=== PATIENT | female | born 1945 | race Caucasian/White ===

== ENCOUNTER → 2018-03-11 11:00 | Outpatient (CLI) | payer MEDICARE, BC, SELFPAY ==
[2018-02-04 15:24] VITALS: BMI 30.5
--- NOTE | 2018-03-11 11:04 | RAD_ITS ---
STUDY: X-RAY - LUMBAR SPINE REASON FOR EXAM: Female, 72 years old. Low back pain TECHNIQUE: 5 view(s) of the lumbar spine were obtained. COMPARISON: None FINDINGS: Normal lumbar lordosis. There is no substantial scoliosis. There is a normal alignment of the vertebrae. There is multilevel endplate spondylosis of the lumbar vertebrae. There is multi-level degenerative disc disease with multi-level disc space narrowing. There is no demonstrated fracture. The soft tissue structures are unremarkable. RAD/L/S Spine Min 4 Views IMPRESSION: Degenerative changes of the spine, as detailed above. Electronically Signed: Osmany Vuong DO at 11:29 EST Tel , Service support ,
--- OUTSIDE RECORDS SUMMARY | 2018-06-12 15:10 | XMS RPT_ITS ---
:1945 Author Organization OHIP Care Team Providers Name Role Phone Jailene Aguilar DO Attending Unavailable Jailene Aguilar DO Consulting Unavailable Jeff DOJailene Referring Unavailable Jeff, Jailene Attending Unavailable Jeff Jailene Referring Unavailable Jeff, Jailene Primary Care Unavailable Amena Sweeney Attending Unavailable Bryant Lino Attending Unavailable ANUPAM LI Referring Unavailable JeffJailene Attending Unavailable Jeff Jailene Referring Unavailable Jeff, Jailene Primary Care Unavailable PROBLEMS PROBLEMS DATE TYPE CONDITION / CODE ATTENDING STATUS SOURCE 03/11/2018 Unknown M54.5 - Low back JeffJailene greene pain / Community M54.5(ICD-10) Hospital Repository PROCEDURES PROCEDURES No Procedure Records FoundRESULTS RESULTS RE-EVALUATION - PT (1) Observed: 03/31/2018 Status: F Source: KATLIN 1:54 PM [facility] REPOSITORY [facility] [address] [place] [address] / REEVALUATION / MEDICARE RECERTIFICATION PHYSICAL THERAPY MR#: [id number] Acct: [id number] Name: TIFFANY MONTEZ Rep #: [id number] : 1945 73 From: Jani Malik DPT Referring Dr.: Jailene Aguilar DO Status: REG RCR Insurance: MEDICARE PART A B ANTHEM Jailene Aguilar, DO, It has been my pleasure to treat TIFFANY MONTEZ over the last 10 visits for R biceps pain, Lumbar radiculopathy. Please see the progress note below for an update on the physical therapy plan of care! Subjective: Pt. reports I was doing better, but over the last few days she has had increased RLE pain and hip pain as well as R shoulder pain. Pt. reports that she just has increased pain over the past few days. A few weeks ago, she fell after getting knocked over by her dog. She has had increased soreness since. Objective/Function: Pt. has increased soreness with ER this date. Pt. has increased difficulty with raising her upper arm. MMT- RUE- wrist- 5/5 throghout; elbow- flexion 4+/5, ext 4+/5; shoulder- flexion 4+/5, abd 4/5 increase NW, ext 5/5, IR 5/5, ER 4-/5 increase. ROM: AROM- full, but has increased pain especially and in painful arc positonings. LUMBAR SPINE: flexion nil loss NE, ext min loss NE, SB min loss NE, rotation min loss bilat NE. BLE MMT- 5/5 throughout, except 4/5 hip flexion and abduction. Core strenth- poor+. GAIT: Pt. has improved gait pattern, but contiunes to have slight lateral hip swy, no trandenburg posture noted. STAIRS: Pt. is able to negotiate steps with reciprocal pattern with 1 HR without LOB, no pain with ascending or decsending. Plan Plan: Pt. is to follow up with physician later this date. I am concerned that she may have developed partial RTC tear with her fall. She reports that her symptoms have been improving, but she continues to have difficulty with lifting her arm and her ER weakness. I wanted her to reutrn to her physician prior to resuming PT in order to determine if alternate course of action is required. Goals Goal 1:: Pt. to be I with HEP. Goal Time Frame: 4-6 Weeks Goal Progress: Goal Met Goal 2:: Pt. to have full R shoulder ROM without increase in symptoms. Goal Time Frame: 4-6 Weeks Goal Progress: Progressing Goal 3:: Pt. to have increased R shoulder strength by 1/2 grade of all effected musculature. Goal Time Frame: 4-6 Weeks Goal Progress: Progressing Goal 4:: Pt. to ambulate unlimited distances withotu increase in symptoms. Goal Time Frame: 4-6 Weeks Goal Progress: Progressing Goal 5:: Pt. to have increased core strength by 1/2 grade. Goal Time Frame: 4-6 Weeks Goal Progress: Goal Met Goal 6:: Pt. to compelte all ADls without limitations. Goal Time Frame: 4-6 Weeks Goal Progress: Progressing Anticipated Interventions Patient/Client Instruction: Educate patient on: Condition, Plan of Care, Risk Factors, Benefits of Fitness Program For the Purpose of:: To improve decision making, To facilitate caregiver knowledge, To improve self management, To prevent re-injury, To improve ability to perform tasks related to life management, To improve tolerance to ADL's Therapeutic Exercise to Include: Strength training, Power training, Endurance training, Postural training, Flexibilty training, Passive ROM, Active ROM, Raquel Exercises, Scapular Strength/Stabilization For the Purpose of:: To decrease pain, To decrease swelling/inflammation, To increase ROM, To improve nutrient delivery to tissue, To improve muscle performance and motor function, To improve ability to perform ADL's, To improve performance and independence with ADL's, To improve gait and locomotor functions, To improve health of tissue, To decrease soft tissue restriction, To increase flexibility/ROM Manual Therapy Techniques to Include: Mobilization, Passive ROM, Functional dry needling, Soft tissue mobilization For the Purpose of:: To decrease pain, To decrease swelling/inflammation, To increase ROM, To improve nutrient delivery to tissue, To increase oxygenation perfusion, To improve muscle performance and motor function, To improve health of tissue, To decrease soft tissue restriction, To increase flexibility/ROM Cryotherapy (ice pack, ice massage): Yes Thermo therapy (hot pack): Yes For the Purpose of:: To decrease pain, To decrease swelling/inflammation, To increase ROM, To improve nutrient delivery to tissue, To increase oxygenation perfusion Please do not hesitate to contact me at [phone] by phone or if you have questions or concerns regarding this new plan of care! Sincerely, Jani Malik, DPT <Electronically signed by Jani Malik DPT> 03/31/18 1354 CC: Jailene Aguilar DO CLS Signed For Medicare only, by signing this I certify the plan of care. Physicians Signature Date L/S SPINE MIN 4 Observed: 03/11/2018 Status: F Source: OZAN VIEWS 11:04 AM [facility] REPOSITORY [facility] Imaging Services [address] [place] [address] L/S Spine Min 4 Views MR#: [id number] Acct: [id number] Name: TIFFANY MONTEZ Rep #: [id number] : 1945 F 72 From: Osmany Vuong DO PCP: Jailene Aguilar DO Status: REG CLI Study: L/S Spine Min 4 Views Date of Exam: 03/11/18 Exam# [id number] Ordering Dr: Jailene Aguilar DO STUDY: X-RAY - LUMBAR SPINE REASON FOR EXAM: Female, 72 years old. Low back pain TECHNIQUE: 5 view(s) of the lumbar spine were obtained. COMPARISON: None FINDINGS: Normal lumbar lordosis. There is no substantial scoliosis. There is a normal alignment of the vertebrae. There is multilevel endplate spondylosis of the lumbar vertebrae. There is multi-level degenerative disc disease with multi-level disc space narrowing. There is no demonstrated fracture. The soft tissue structures are unremarkable. RAD/L/S Spine Min 4 Views IMPRESSION: Degenerative changes of the spine, as detailed above. Electronically Signed: Osmany Vuong DO at 11:29 EST Tel , Service support , CC: Jailene Aguilar DO Pet Care Attendant: Signed URGENT CARE VISIT Observed: 03/04/2018 Status: F Source: OZAN REPORT 6:52 AM [facility] REPOSITORY [facility] [address] [place] [address] OFFICE VISIT Date of Service: 02/04/18 MR#: [id number] Acct: [id number] Name: TIFFANY MONTEZ Rep #: [id number] : 1945 Provider: Bryant COKER Age/Sex: 72/F Location: [facility] Status: Signed with Addenda ADDENDUM by Bryant COKER on 03/04/18 at 0652 Addendum entered and electronically signed by SHEELA Rendon 03/04/18 06:52: Dx: Cervical strain/ radiculopathy, Lumbar strain/ radiculopathy HPI Details: TIFFANY MONTEZ, is a 72 F who presents to the office today for Assessment AND Plan Plan - SHEELA Rendon Prednisone as prescribed today; patient aware she may take acetaminophen but hold all NSAIDs while on prednisone. Patient refusing cyclobenzaprine upon offering. Rest, ice applications, home range of motion exercises as instructed today. Keep follow-up appointment with primary care physician for February 23 as previously arranged, or follow-up with PCP sooner should symptoms worsen or any other concerns develop. Patient states acknowledging understanding all the above. This note was generated with [employer] software. It may contain incorrect words, spelling, and punctuation that were not noted in checking the note before signing. Medications New: prednisone 3 tablets daily for 3 days, then 2 tablets daily20 mg PO DAILY 18 tabs 0RF for 3 days, then 1 tablet daily for 3 days. 03/04/18 0652 <Electronically signed by Bryant COKER> Date Bryant Lino cc: * Signed Intake Vital Signs02/04/18 Height 5 ft 2 in Intake Visit Reasons: SCIATICA/ AND RIGHT BICEP PAIN Chief Complaint: Neck and back pain Allergies Penicillins Allergy (Verified 02/04/18 15:25) Unknown Medications antiarthritic combination no.2 900 mg tablet mg PO tab 02/04/18 [History Confirmed 02/04/18] bupropion HCl 75 mg tablet 75 mg PO BID 02/04/18 [History Confirmed 02/04/18] calcium carbonate 500 mg calcium (1,250 mg) tablet 500 mg PO BID tab 02/04/18 [History Confirmed 02/04/18] cholecalciferol (vitamin D3) 1,000 unit capsule 1,000 unit PO DAILY 02/04/18 [History Confirmed 02/04/18] nuoectu-hficmhkia-gxxryp-MNX-rlcet-ppys-150hb 250 mg-250 mg- 120 mg tab tab PO tab 02/04/18 [History Confirmed 02/04/18] dexlansoprazole 30 mg capsule,biphase delayed release 30 mg PO DAILY 02/04/18 [History Confirmed 02/04/18] losartan 100 mg tablet 100 mg PO DAILY 02/04/18 [History Confirmed 02/04/18] prednisone 20 mg tablet 20 mg PO DAILY #18 tab 02/04/18 [Rx Confirmed 02/04/18] verapamil 40 mg tablet 40 mg PO TID 02/04/18 [History Confirmed 02/04/18] PFSH Medical History Back pain (Acute) Limb weakness (Acute) HTN (hypertension) (Chronic) Surgical History History of cataract surgery (Acute) History of tubal ligation (Acute) Social History Smoking Status: Never smoker alcohol intake: current alcohol intake frequency: 3 or more drinks per day Alcohol type: wine HPI HPI Chief Complaint: Neck and back pain Details: TFIFANY MONTEZ, is a 72 F who presents to the office today for initial evaluation approximately 2-month history of progressively worsening right- sided neck pain right-sided low back pain with paresthesias to right lateral posterior thigh and right upper biceps region paresthesias. Patient notes she recently moved to the [facility] from the [facility], and has been carrying a lot of boxes in the process of the move over the last 2 months. She has been taking ivcw-nhg-cpxbwzt Advil which initially helped but is no longer giving her any relief. She notes no changes in bowel or bladder function; no caudal complaints upon questioning. She notes no prior history of injuries or surgeries to her neck or back. She notes no other associated symptoms and no other alleviating or aggravating factors. ROS Const Constitutional: No other (ROS negative x10 other than as noted above) Exam Const General: cooperative, healthy appearing, no acute distress, uncomfortable Nutritional Appearance: average body habitus Orientation: alert, awake, oriented x3 HENMT Head: normal to inspection Ears: hearing grossly normal bilaterally, external ears normal Nose: external nose normal Eyes General: appearance normal, both eyes and all related structures Neck Neck: normal visual inspection, full ROM, no lymphadenopathy, no meningeal signs, supple Neck mass: No Thyroid: thyroid normal Lymphatic: no lymphadenopathy noted Chest Chest palpation AND inspection: normal inspection of the chest Resp Effort AND Inspection: normal respiratory effort, able to speak in complete sentences, symmetric chest movement Auscultation: Bilateral: Clear to Auscultation Cardio Palpation: normal PMI Rate: regular rate Rhythm: regular rhythm Heart Sounds: S1 normal, S2 normal, no gallops, no murmurs, no rubs Pulses: radial pulses present GI Inspection: normal to inspection Palpation: soft Musc Cervical Spine: normal cervical lordosis, cervical ROM normal, pain with cervical ROM and cervical muscular tenderness (R>L, to palpation exacerbates R biceps paresthesias); no cervical spinal tenderness or step off deformity Thoracic/Lumbar Spine: thoracic and lumbar spine normal to inspection, No surgical scar(s) present, straight leg raise negative bilaterally, no lumbar spinal tenderness, no thoracic spinal tenderness, thoraco-lumbar spasm, paraspinal tenderness (to palpation exacerbates R lateral-posterior thigh paresthesias) on the right greater than left Skin General: no rashes or lesions noted Neuro General: alert, awake, oriented x3, gait normal Cognition: normal cognition Speech: speech normal Gait: normal gait Motor: muscle tone normal throughout Sensory Exam: no sensory deficits noted Extrem General: normal to inspection Psych Appearance: grossly normal Mental Status: mental status grossly normal Mood: congruent mood Affect: normal affect Speech and Movement: speech and movement normal Attitude: cooperative Thought Process: normal Thought Content: normal Judgment: judgment good Assessment AND Plan Plan Prednisone as prescribed today; patient aware she may take acetaminophen but hold all NSAIDs while on prednisone. Patient refusing cyclobenzaprine upon offering. Rest, ice applications, home range of motion exercises as instructed today. Keep follow-up appointment with primary care physician for February 23 as previously arranged, or follow-up with PCP sooner should symptoms worsen or any other concerns develop. Patient states acknowledging understanding all the above. This note was generated with [employer] dictation software. It may contain incorrect words, spelling, and punctuation that were not noted in checking the note before signing. Medications New: prednisone 3 tablets daily for 3 days, then 2 tablets daily20 mg PO DAILY 18 tabs 0RF for 3 days, then 1 tablet daily for 3 days. Coding Level of Care Code Off vis,new,level 3 02/04/18 0868 <Electronically signed by Bryant COKER> Date Bryant COKER Cosigner Signature: Date (if applicable) CC: INITAL EVALUATION (1) Observed: 03/03/2018 Status: F Source: KATLIN - PT 12:36 PM [facility] REPOSITORY [facility] [address] [place] [address]. [address] [place] [address] Fax REHABILITATION SERVICES INITIAL EVALUATION MR#: [id number] Acct: [id number] Name: TIFFANY MONTEZ Rep #: [id number] : 1945 72 From: Jani Malik DPT Referring DrSydni: Jailene Aguilar DO Status: REG RCR Insurance: MEDICARE PART A B ANTHEM Patient's Visit Information TIFFANY MONTEZ is a 72 year old F referred to Physical Therapy by Jailene Aguilar with a diagnosis of R biceps pain, Lumbar radiculopathy. Date of Evaluation: 02/26/18 Physical Therapist: Jani Malik - Visit Plan Frequency: 2x /Week Duration: 4-6 Weeks Plan: Start with neutral spine core stability, R shoulder strengthening stability exercises. May use US for lumbar spine and/or bicep at insertion as needed. Inferior glides with abd/flexion or shoulder as tolerated. - Subjective Findings: Pt. is here today for her initial evaluation with biceps pain and lumbar radiculopathy. Pt. reports having pain for 2 months after moving boxes as she moved back to [place] from [place]. Pt. reports having pain that extends into bilateral hips and occassionally into anterior hip on R side. Pt. reports her back pain has been presents for a while, but has become worse since the move. Pt. denies N/T in either LE or UE. Pt. reports pain with walking, sleeping, standing. She has R arm pain with lifting, raising her arm and with ADLs. Pt. has not trialed any exercises and has not had any imaging at this point in time. Pt. is not taking any medications as well. Pt. would like to reduce symptoms in order to get back to all recreational and ADls without increase in symptoms. - Pain R arm pain Pain Intensity (Out of 10): 2 Pain Intensity Range: 0, 5 Lumbar spine Pain Intensity (Out of 10): 3 Pain Intensity Range: 1, 6 - Objective POSTURE: PT. has slight L lateral lean in stance. Pt. has slight flexed posture with rounded shoulders. Pt. had slight increase in R iliac crest height. PALPATION: Pt. has tenderness along biceps tendon, pain at lumbar paraspinals and gluteal region. Pt. has no lateral leg pain with palpation. Pt. has sligh anterior subacromial space symptoms as well. NEURO: all intact without issues. ROM: L shoulder full motion without increase in symptoms. R shoulder- flexion full increased pain at end range of flexion, abd- painful arc, but full motion. Functional ER C4 mild increase NW, functioanl IR L3 mild increase NW anterior shoulder. LUMBAR SPINE: flexion- min loss NE, ext mod loss increase NW, SB mod loss bilat increase NW, rotation min loss bilat increase NW. No radicular symptoms with testing. MMT: LUE- 5/5 throughout. RUE- 5/5 throughotu, except- shoulder ER 4/5 mild incraese NWE, ext 5-/5 increase NW, flexion 4/5 increase NW. COre strength- poor- difficulty maintaining post pelvic tilt. GAIT: Pt. has slight R lateral lean with gait, normal step length, increased lateral hip sway with gait. Pt. has slight trandelenburg with B hips. STAIRS: Functional weakness noted with descending. - Special Tests L/S Slump test left side: Negative L/S Slump test right side: Negative L/S Left Straight Leg Raise: Negative L/S Right Straight Leg Raise: Negative Lumbar Standing: Flexion - Mechanical Response: No effect Lumbar Standing: Flexion - Symptoms During Testing: Decreases Lumbar Standing: Flexion - Symptoms After Testing: No better Lumbar Standing: Extension - Mechanical Response: No effect Lumbar Standing: Extension - Symptoms During Testing: Increases Lumbar Standing: Extension - Symptoms After Testing: Worse Lumbar Standing: Right Side Glides - Mechanical Response: No effect Lumbar Standing: Right Side Phelps - Symptoms During Testing: Increases Lumbar Standing: Right Side Phelps - Symptoms After Testing: No worse Lumbar Standing: Left Side Phelps - Mechanical Response: No effect Lumbar Standing: Left Side Phelps - Symptoms During Testing: Increases Lumbar Standing: Left Side Phelps - Symptoms After Testing: No worse R Shoulder Empty Can - SS: Negative R Shoulder Belly Press - SupScap: Negative R Shoulder Neer - Impingement: Positive R Shoulder Kendrick Octavio - Impingement: Negative R Shoulder Biceps Load Test - Labrum: Negative R Shoulder Yeargasons - SLAP: Negative R Shoulder Speeds Test - Labrum/Biceps: Negative - Goals Goal 1:: Pt. to be I with HEP. Goal Time Frame: 4-6 Weeks Goal 2:: Pt. to have full R shoulder ROM without increase in symptoms. Goal Time Frame: 4-6 Weeks Goal 3:: Pt. to have increased R shoulder strength by 1/2 grade of all effected musculature. Goal Time Frame: 4-6 Weeks Goal 4:: Pt. to ambulate unlimited distances withotu increase in symptoms. Goal Time Frame: 4-6 Weeks Goal 5:: Pt. to have increased core strength by 1/2 grade. Goal Time Frame: 4-6 Weeks Goal 6:: Pt. to compelte all ADls without limitations. Goal Time Frame: 4-6 Weeks - Rehabilitation Potential Physical Therapy Diagnosis: Pt. has signs and symptoms consistent with biceps tendonitis vrs impingment syndrome and lumbar radiculopathy. Pt. has difficulty with raising her R arm and with lifting. Pt. does not appear to have a directional preference with her lumbar spine, but would benefit from core stability exercises and modalities as needed to reduce symptoms. Rehabilitation Potential: Good - Anticipated Interventions Patient/Client Instruction: Educate patient on: Condition, Plan of Care, Risk Factors, Benefits of Fitness Program For the Purpose of:: To improve decision making, To facilitate caregiver knowledge, To improve self management, To prevent re-injury, To improve ability to perform tasks related to life management, To improve tolerance to ADL's Therapeutic Exercise to Include: Strength training, Power training, Endurance training, Postural training, Flexibilty training, Passive ROM, Active ROM, Raquel Exercises, Scapular Strength/Stabilization For the Purpose of:: To decrease pain, To decrease swelling/inflammation, To increase ROM, To improve nutrient delivery to tissue, To improve muscle performance and motor function, To improve ability to perform ADL's, To improve performance and independence with ADL's, To improve gait and locomotor functions, To improve health of tissue, To decrease soft tissue restriction, To increase flexibility/ROM Manual Therapy Techniques to Include: Mobilization, Passive ROM, Functional dry needling, Soft tissue mobilization For the Purpose of:: To decrease pain, To decrease swelling/inflammation, To increase ROM, To improve nutrient delivery to tissue, To increase oxygenation perfusion, To improve muscle performance and motor function, To improve health of tissue, To decrease soft tissue restriction, To increase flexibility/ROM Cryotherapy (ice pack, ice massage): Yes Thermo therapy (hot pack): Yes For the Purpose of:: To decrease pain, To decrease swelling/inflammation, To increase ROM, To improve nutrient delivery to tissue, To increase oxygenation perfusion Thank you for the opportunity to evaluate your patient. For Medicare and Medicare HMO plans, please review the plan of care and approve it. It will need to be FAXED BACK to us at [phone] for Medicare purposes. For Medicare only, by signing this I certify the plan of care. Please let me know if there are questions or concerns regarding this plan of care. Physician Signature: Date: <Electronically signed by Jani Malik DPT> 03/03/18 1236 CC: Jailene Aguilar DO CLS Signed ALLERGIES ALLERGIES DATE TYPE / CODE NAME / CODE REACTION SEVERITY SOURCE 02/04/2018 Drug Penicillins/ Unknown Unknown [facility] Allergy/4160 [id number]( Hospital 86803(SNOMED XNORM) Repository CT) ENCOUNTERS ENCOUNTERS ADMIT/DISCHARGE ACCOUNT ADMITTING ENCOUNTER LOCATION SOURCE NUMBER CLASS 04/17/2018 [id number] Ambulatory BMSBuilding:[facility] [place] [facility] Repository 04/06/2018 [id number] Ambulatory Building:[facility] [place] Practices Repository 03/31/2018 [id number] Ambulatory [place] [facility] [facility] ing:PT Repository 03/11/2018 [id number] Ambulatory [place] [facility] ing:MTRAD Repository 02/04/2018/ [id number] Ambulatory BMSBuilding:[facility] [place] [address] 6 [facility] Repository PAYERS PAYERS ENCOUNTER GUARANTOR PAYER SUBSCRIBER SOURCE 04/17/2018 TIFFANY B Primary TIFFANY B [place] [id number] Insurance:MEDICARE SWARTZDOB: [facility] PART A [facility] [id number] Number: Repository [address]Fft: [phone] [id number] [phone] () Date:2018-04-17 04/17/2018 Secondary TIFFANY B [place] Insurance:ANTHEMPolic SWARTZDOB: Community y Number: [id number] [id number] Repository Date:[id number] [place] [id number] [address]EH: 04/17/2018 Tertiary NOT GIVENUNK [place] Insurance:SELF PAY [facility] Number: Effective Repository Date:2018-04-17 04/06/2018 Tiffany B Primary Tiffany B OHIP Practices SwartzDOB: Insurance:MedicarePol SwartzDOB: Repository icy Number: [id number] CV0 [id number] [place] [id number] 0 [place], [place] Date:1571-75-11[place]daBur[place], [place] [address]Zwl: 515) Name:[facility] [address]Uwr: [id number], [place] [phone] (HP) (HP)Tel: [phone]: [phone] 04/06/2018 Secondary Tiffany B OHIP Practices Insurance:Lula SwartzDOB: Repository [facility]: [id number] 0 [place] Date:Plan Name:[place], [place] [address] [place] [address]Obf: [phone]: [phone] 03/31/2018 TIFFANY B Primary TIFFANY B [place] [id number] Insurance:MEDICARE SWARTZDOB: [facility] PART A [facility] [id number] Number: Repository [id number]: [phone] [id number] [phone] () Date:2011-02-21 03/31/2018 Secondary TIFFANY B [place] Insurance:ANTHEMPolic SWARTZDOB: Community y Number: [id number] [id number] Repository Date:[id number] [address]FJ: 03/31/2018 Tertiary NOT GIVENUNK [place] Insurance:SELF PAY [facility] Number: Effective Repository Date:2018-02-23 03/11/2018 TIFFANY B Primary TIFFANY B [place] [id number] Insurance:MEDICARE SW[facility]ZDOB: [facility] A [facility] [id number] Number: Repository [id number]: [phone] [id number] [phone] (HP) Date:2018-03-11 03/11/2018 Secondary TIFFANY B [place] Insurance:ANTHEMPolic SWARTZDOB: Community [facility] Number: [id number] [facility] [id number] Repository Date:0682-05-31[id number] [address]DH: 03/11/2018 Tertiary NOT GIVENUNK [place] Insurance:SELF PAY [facility] Number: Effective Repository Date:2018-03-11 02/04/2018 TIFFANY B Primary TIFFANY B Channing [id number] Insurance:MEDICARE SWARTZDOB: [facility] PART A [facility] [id number] Number: Repository [id number]: [phone] [id number] [phone] (HP) Date:2018-02-04 02/04/2018 Secondary TIFFANY B [place] Insurance:ANTHEMPolic SWARTZDOB: Community [facility] Number: [id number] [id number] Repository Date:[id number] [place] [address]EQ: 02/04/2018 Tertiary NOT GIVENUNK [place] Insurance:SELF PAY [facility] Number: Effective Repository Date:2018-02-04
--- OUTSIDE RECORDS SUMMARY | 2018-06-12 15:10 | XMS RPT_ITS | Continuity of Care Document ---
:1945 Author Organization [facility] Address [facility] [address] [place] [address] Phone Care Team Providers Name Role Phone Jailene Aguilar DO Unavailable Dr. Kang Quintana Unavailable LISA Marshall Unavailable Unavailable Unavailable Unavailable Problems Name Dates Details Hutton's esophagus (K22.70, 530.85) Status: Active BMI 30.0-30.9,adult (Z68.30, V85.30) Status: Active Low back pain (M54.5, 724.2) Comments: with radiculopathy Status: Active No Known / History 23-Feb-2018 Status: Active Non-smoker (Z78.9, V49.89) Status: Active Medications Name Dates Details Align 4 MG Oral Capsule Active 1 qd (4 MG) Aspirin 81 MG Oral Tablet Delayed Release Active 1 qd (81 MG) BuPROPion HCl ER (XL) 450 MG Oral Tablet Extended Release 24 Hour Active 1 qd (450 MG) Citracal Slow Release 600-40-500 MG-MG-UNIT Oral Tablet Extended Release 24 Hour Active 1 qd (600-40-500 MG-MG-UNIT) Dexilant 60 MG Oral Capsule Delayed Release Active 1 qd (60 MG) Focused Mind Oral Capsule Active 1 qd Glucosamine Chondr Complex 500-400 MG Oral Capsule Active 1 qd (500-400 MG) Hair Skin Nails Oral Capsule Active 1 qd Losartan Potassium 50 MG Oral Tablet Active 1 qd (50 MG) Meloxicam 15 MG Oral Tablet 1 (one) Tablet qd for 30 days Quantity: 30 {Tablet} Refills: 0 Ordered:23-Feb-2018 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 Father. Status: Active Diabetes Mellitus Type II Comments: Father. Status: Active Heart Disease Comments: Maternal Grandfather. Status: Active Hypertension Comments: Maternal Grandmother. Paternal Grandmother. Status: Active Lung Cancer Comments: Mother. Status: Active Multiple Sclerosis Comments: Sister. Status: Active Pancreatitis Comments: Father. Status: Active Throat cancer Comments: Paternal Grandfather. Status: Active Social History Name Dates Details Alcohol Use Status: Active Caffeine Use Comments: qd Status: Active Exercise History: Does not exercise. Status: Active Living Situation: Lives alone. Status: Active No Drug Use Status: Active Non Smoker/No Tobacco Use Status: Active Pets/Animals: Dog. Status: Active Vital Signs Date Test Result Details [id number] Pulse 80 /min Comments: Pattern: Regular Respiration Rate 18 /min Comments: Pattern: Unlabored O2 SAT 98 % Comments: Room air BP Systolic 152 mm[Hg] Comments: Patient Position: Sitting; Cuff Location: Left Arm; Cuff Size: Large BP Diastolic 90 mm[Hg] Comments: Patient Position: Sitting; Cuff Location: Left Arm; Cuff Size: Large Weight 171.375 lb Height 62.5 in Body Mass Index Calculated 30.85 kg/m2 Body Surface Area Calculated 1.8 m2 Results Date Description Value Details No Result Information Available Plan of Care Name Dates Details Instructions Hutton's esophagus : Continue Current Prescription(s) Indication: Hutton's esophagus Planned Encounters Medical; General Medical - On: 13-Mar-2018 10:30 [facility] Jailene Aguilar DO, DO, [facility]; [facility], annual exam - On: 02-Apr-2018 9:30 [facility] Jailene Aguilar DO, DO, Kathleen Planned Procedures PHYSICAL THERAPY ([id number])By: Jailene Aguilar DO, DO, On: 23-Feb-2018 Intent Jailene [facility] - Lumbar SpineBy: Jeff GORDONJailene DO, On: 23-Feb-2018 Intent Jailene Instructions Name Dates Details Non-smoker : How to access health information online Indication: Non-smoker Non-smoker : How to access health information online Indication: Non-smoker Non-smoker : How to access health information online - Detail Indication: Non-smoker Non-smoker : Patient Instructions Indication: Non-smoker Advance Directives Name Dates Details Immunization Registry [place] - Effective on 02/23/2018. Effective: 23-Feb-2018 Expiration date unspecified Encounters Office Visit On: 23-Feb-2018 14:08 Encounter Reason: Back Pain - This condition occurred following a specific injury. The injury involved the lower back. The patient describes the pain as aching. Onset was sudden 4 month(s) ago. The symptoms occur constan End: 23-Feb-2018 16:40 tly. The patient describes symptoms as moderate in severity and worsening., [ADDITIONAL REASON] Arm pain - The onset of the pain has been sudden and has been occurring in a pe rsistent pattern for months. The course has been constant. The pain is described as moderate. The pain is described as being located in the right humerus. The pain is aggravated by reaching and lifting. The pain is relieved by nothing. Encounter Diagnosis: BMI 30.0-30.9,adult, Non-smoker, Low back pain, Hutton's esophagus [facility] Payers MedicareAnthem MCKENNA/Tadeo Nuñez; a guarantor
== END ==
PROVIDERS: Family Provider Internal Medicine; PCP Internal Medicine; Referring Provider Internal Medicine; Visit Provider Internal Medicine
DX: M54.5 Low back pain (principal); M54.16 Radiculopathy, lumbar region; M79.621 Pain in right upper arm
CPT/HCPCS: 72110; 97035; 97110

== ENCOUNTER 2018-03-31 11:00 | Outpatient (RCR) | payer MEDICARE, BC, SELFPAY ==
[2018-02-04 15:24] VITALS: BMI 30.5
--- NOTE | 2018-03-03 12:36 | HP.PTEVAL_ITS ---
Patient's Visit Information JOSHUA MONTEZ is a 72 year old F referred to Physical Therapy by Jailene Aguilar with a diagnosis of R biceps pain, Lumbar radiculopathy. Date of Evaluation: 02/26/18 Physical Therapist: Jani Malik - Visit Plan Frequency: 2x /Week Duration: 4-6 Weeks Plan: Start with neutral spine core stability, R shoulder strengthening stability exercises. May use US for lumbar spine and/or bicep at insertion as needed. Inferior glides with abd/flexion or shoulder as tolerated. - Subjective Findings: Pt. is here today for her initial evaluation with biceps pain and lumbar radiculopathy. Pt. reports having pain for ~2 months after moving boxes as she moved back to [place] from [place]. Pt. reports having pain that extends into bilateral hips and occassionally into anterior hip on R side. Pt. reports her back pain has been presents for a while, but has become worse since the move. Pt. denies N/T in either LE or UE. Pt. reports pain with walking, sleeping, standing. She has R arm pain with lifting, raising her arm and with ADLs. Pt. has not trialed any exercises and has not had any imaging at this point in time. Pt. is not taking any medications as well. Pt. would like to reduce symptoms in order to get back to all recreational and ADls without increase in symptoms. - Pain R arm pain Pain Intensity (Out of 10): 2 Pain Intensity Range: 0, 5 Lumbar spine Pain Intensity (Out of 10): 3 Pain Intensity Range: 1, 6 - Objective POSTURE: PT. has slight L lateral lean in stance. Pt. has slight flexed posture with rounded shoulders. Pt. had slight increase in R iliac crest height. PALPATION: Pt. has tenderness along biceps tendon, pain at lumbar paraspinals and gluteal region. Pt. has no lateral leg pain with palpation. Pt. has sligh anterior subacromial space symptoms as well. NEURO: all intact without issues. ROM: L shoulder full motion without increase in symptoms. R shoulder- flexion full increased pain at end range of flexion, abd- painful arc, but full motion. Functional ER C4 mild increase NW, functioanl IR L3 mild increase NW anterior shoulder. LUMBAR SPINE: flexion- min loss NE, ext mod loss increase NW, SB mod loss bilat increase NW, rotation min loss bilat increase NW. No radicular symptoms with testing. MMT: LUE- 5/5 throughout. RUE- 5/5 throughotu, except- shoulder ER 4/5 mild incraese NWE, ext 5-/5 increase NW, flexion 4/5 increase NW. COre strength- poor- difficulty maintaining post pelvic tilt. GAIT: Pt. has slight R lateral lean with gait, normal step length, increased lateral hip sway with gait. Pt. has slight trandelenburg with B hips. STAIRS: Functional weakness noted with descending. - Special Tests L/S Slump test left side: Negative L/S Slump test right side: Negative L/S Left Straight Leg Raise: Negative L/S Right Straight Leg Raise: Negative Lumbar Standing: Flexion - Mechanical Response: No effect Lumbar Standing: Flexion - Symptoms During Testing: Decreases Lumbar Standing: Flexion - Symptoms After Testing: No better Lumbar Standing: Extension - Mechanical Response: No effect Lumbar Standing: Extension - Symptoms During Testing: Increases Lumbar Standing: Extension - Symptoms After Testing: Worse Lumbar Standing: Right Side Glides - Mechanical Response: No effect Lumbar Standing: Right Side [place] - Symptoms During Testing: Increases Lumbar Standing: Right Side [place] - Symptoms After Testing: No worse Lumbar Standing: Left Side [place] - Mechanical Response: No effect Lumbar Standing: Left Side [place] - Symptoms During Testing: Increases Lumbar Standing: Left Side [place] - Symptoms After Testing: No worse R Shoulder Empty Can - SS: Negative R Shoulder Belly Press - SupScap: Negative R Shoulder Neer - Impingement: Positive R Shoulder Kendrick Octavio - Impingement: Negative R Shoulder Biceps Load Test - Labrum: Negative R Shoulder [place] - SLAP: Negative R Shoulder Speeds Test - Labrum/Biceps: Negative - Goals Goal 1:: Pt. to be I with HEP. Goal Time Frame: 4-6 Weeks Goal 2:: Pt. to have full R shoulder ROM without increase in symptoms. Goal Time Frame: 4-6 Weeks Goal 3:: Pt. to have increased R shoulder strength by 1/2 grade of all effected musculature. Goal Time Frame: 4-6 Weeks Goal 4:: Pt. to ambulate unlimited distances withotu increase in symptoms. Goal Time Frame: 4-6 Weeks Goal 5:: Pt. to have increased core strength by 1/2 grade. Goal Time Frame: 4-6 Weeks Goal 6:: Pt. to compelte all ADls without limitations. Goal Time Frame: 4-6 Weeks - Rehabilitation Potential Physical Therapy Diagnosis: Pt. has signs and symptoms consistent with biceps tendonitis vrs impingment syndrome and lumbar radiculopathy. Pt. has difficulty with raising her R arm and with lifting. Pt. does not appear to have a d irectional preference with her lumbar spine, but would benefit from core stability exercises and modalities as needed to reduce symptoms. Rehabilitation Potential: Good - Anticipated Interventions Patient/Client Instruction: Educate patient on: Condition, Plan of Care, Risk Factors, Benefits of Fitness Program For the Purpose of:: To improve decision making, To facilitate caregiver knowledge, To improve self management, To prevent re-injury, To improve ability to perform tasks related to life management, To improve tolerance to ADL's Therapeutic Exercise to Include: Strength training, Power training, Endurance training, Postural training, Flexibilty training, Passive ROM, Active ROM, Raquel Exercises, Scapular Strength/Stabilization For the Purpose of:: To decrease pain, To decrease swelling/inflammation, To increase ROM, To improve nutrient delivery to tissue, To improve muscle performance and motor function, To improve ability to perform ADL's, To improve performance and independence with ADL's, To improve gait and locomotor functions, To improve health of tissue, To decrease soft tissue restriction, To increase flexibility/ROM Manual Therapy Techniques to Include: Mobilization, Passive ROM, Functional dry needling, Soft tissue mobilization For the Purpose of:: To decrease pain, To decrease swelling/inflammation, To increase ROM, To improve nutrient delivery to tissue, To increase oxygenation perfusion, To improve muscle performance and motor function, To improve health of tissue, To decrease soft tissue restriction, To increase flexibility/ROM Cryotherapy (ice pack, ice massage): Yes Thermo therapy (hot pack): Yes For the Purpose of:: To decrease pain, To decrease swelling/inflammation, To increase ROM, To improve nutrient delivery to tissue, To increase oxygenation perfusion Thank you for the opportunity to evaluate your patient. For Medicare and Medicare HMO plans, please review the plan of care and approve it. It will need to be FAXED BACK to us at [phone] for Medicare purposes. For Medicare only, by signing this I certify the plan of care. Please let me know if there are questions or concerns regarding this plan of care. Physician Signature: Date:
--- NOTE | 2018-03-31 13:54 | HP.PTREVAL ---
Jailene Aguilar, DO, It has been my pleasure to treat JOSHUA MONTEZ over the last 10 visits for R biceps pain, Lumbar radiculopathy. Please see the progress note below for an update on the physical therapy plan of care! Subjective: Pt. reports I was doing better, but over the last few days she has had increased RLE pain and hip pain as well as R shoulder pain. Pt. reports that she just has increased pain over the past few days. A few weeks ago, she fell after getting knocked over by her dog. She has had increased soreness since. Objective/Function: Pt. has increased soreness with ER this date. Pt. has increased difficulty with raising her upper arm. MMT- RUE- wrist- 5/5 throghout; elbow- flexion 4+/5, ext 4+/5; shoulder- flexion 4+/5, abd 4/5 increase NW, ext 5/5, IR 5/5, ER 4-/5 increase. ROM: AROM- full, but has increased pain especially and in painful arc positonings. LUMBAR SPINE: flexion nil loss NE, ext min loss NE, SB min loss NE, rotation min loss bilat NE. BLE MMT- 5/5 throughout, except 4/5 hip flexion and abduction. Core strenth- poor+. GAIT: Pt. has improved gait pattern, but contiunes to have slight lateral hip swy, no [place] posture noted. STAIRS: Pt. is able to negotiate steps with reciprocal pattern with 1 HR without LOB, no pain with ascending or decsending. Plan Plan: Pt. is to follow up with physician later this date. I am concerned that she may have developed partial RTC tear with her fall. She reports that her symptoms have been improving, but she continues to have difficulty with lifting her arm and her ER weakness. I wanted her to reutrn to her physician prior to resuming PT in order to determine if alternate course of action is required. Goals Goal 1:: Pt. to be I with HEP. Goal Time Frame: 4-6 Weeks Goal Progress: Goal Met Goal 2:: Pt. to have full R shoulder ROM without increase in symptoms. Goal Time Frame: 4-6 Weeks Goal Progress: Progressing Goal 3:: Pt. to have increased R shoulder strength by 1/2 grade of all effected musculature. Goal Time Frame: 4-6 Weeks Goal Progress: Progressing Goal 4:: Pt. to ambulate unlimited distances withotu increase in symptoms. Goal Time Frame: 4-6 Weeks Goal Progress: Progressing Goal 5:: Pt. to have increased core strength by 1/2 grade. Goal Time Frame: 4-6 Weeks Goal Progress: Goal Met Goal 6:: Pt. to compelte all ADls without limitations. Goal Time Frame: 4-6 Weeks Goal Progress: Progressing Anticipated Interventions Patient/Client Instruction: Educate patient on: Condition, Plan of Care, Risk Factors, Benefits of Fitness Program For the Purpose of:: To improve decision making, To facilitate caregiver knowledge, To improve self management, To prevent re-injury, To improve ability to perform tasks related to life management, To improve tolerance to ADL's Therapeutic Exercise to Include: Strength training, Power training, Endurance training, Postural training, Flexibilty training, Passive ROM, Active ROM, Raquel Exercises, Scapular Strength/Stabilization For the Purpose of:: To decrease pain, To decrease swelling/inflammation, To increase ROM, To improve nutrient delivery to tissue, To improve muscle performance and motor function, To improve ability to perform ADL's, To improve performance and independence with ADL's, To improve gait and locomotor functions, To improve health of tissue, To decrease soft tissue restriction, To increase flexibility/ROM Manual Therapy Techniques to Include: Mobilization, Passive ROM, Functional dry needling, Soft tissue mobilization For the Purpose of:: To decrease pain, To decrease swelling/inflammation, To increase ROM, To improve nutrient delivery to tissue, To increase oxygenation perfusion, To improve muscle performance and motor function, To improve health of tissue, To decrease soft tissue restriction, To increase flexibility/ROM Cryotherapy (ice pack, ice massage): Yes Thermo therapy (hot pack): Yes For the Purpose of:: To decrease pain, To decrease swelling/inflammation, To increase ROM, To improve nutrient delivery to tissue, To increase oxygenation perfusion Please do not hesitate to contact me at [phone] by phone or if you have questions or concerns regarding this new plan of care! Sincerely, Jani Malik DPT
--- NOTE | 2018-05-20 14:03 | HP.PTDCNRP_ITS ---
HP - Discharge Summary (1) - Patient Information JOSHUA MONTEZ was seen in my office for initial evaluation on 02/26/18. The following Plan of Care was established for this patient: Initial Frequency: 2x /Week Initial Duration: 4-6 Weeks - Anticipated Interventions Patient/Client Instruction: Educate patient on: Condition, Plan of Care, Risk Factors, Benefits of Fitness Program For the Purpose of:: To improve decision making, To facilitate caregiver knowledge, To improve self management, To prevent re-injury, To improve ability to perform tasks related to life management, To improve tolerance to ADL's Therapeutic Exercise to Include: Strength training, Power training, Endurance training, Postural training, Flexibilty training, Passive ROM, Active ROM, Raquel Exercises, Scapular Strength/Stabilization For the Purpose of:: To decrease pain, To decrease swelling/inflammation, To increase ROM, To improve nutrient delivery to tissue, To improve muscle perf ormance and motor function, To improve ability to perform ADL's, To improve performance and independence with ADL's, To improve gait and locomotor functions, To improve health of tissue, To decrease soft tissue restriction, To increase flexibility/ROM Manual Therapy Techniques to Include: Mobilization, Passive ROM, Functional dry needling, Soft tissue mobilization For the Purpose of:: To decrease pain, To decrease swelling/inflammation, To increase ROM, To improve nutrient delivery to tissue, To increase oxygenation perfusion, To improve muscle performance and motor function, To improve health of tissue, To decrease soft tissue restriction, To increase flexibility/ROM Cryotherapy (ice pack, ice massage): Yes Thermo therapy (hot pack): Yes For the Purpose of:: To decrease pain, To decrease swelling/inflammation, To increase ROM, To improve nutrient delivery to tissue, To increase oxygenation perfusion This patient was last seen in our office 03/31/18. Pertinent comments regarding their Physical therapy will appear below: Pt. was seen for her B shoulder and back pain. Pt. 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 Pt. has had worsening shoulder ROM. At our last visit I talked with patient about possibility fo RTC tear. Pt. was to follow up with physician for possible MRI. Pt. has not been seen in ~7 weeks and will be DC from PT at this point in time. At this point I will be discontinuing this patient from physical therapy. I would be happy to see this patient again in the future if found appropriate by the physician. Thank you! LYNNETTE ShawT
== END 2018-03-31 19:00 | disposition home or self-care (01) ==
LOC: PT 11:00
PROVIDERS: Family Provider Internal Medicine; PCP Internal Medicine; Referring Provider Internal Medicine; Visit Provider Internal Medicine
DX: M54.16 Radiculopathy, lumbar region (principal); M79.621 Pain in right upper arm
CPT/HCPCS: 97012; 97035; 97110; 97140; 97163

== ENCOUNTER → 2018-05-01 10:18 | Outpatient (CLI) | payer MEDICARE, BC, SELFPAY ==
[2018-04-17 11:49] VITALS: BMI 30.5
--- NOTE | 2018-05-01 10:22 | RAD_ITS ---
STUDY: X-RAY - RIGHT SHOULDER REASON FOR EXAM: Female, 73 years old. Pain TECHNIQUE: 4 view(s) of the shoulder. COMPARISON: None. FINDINGS: Normal glenohumeral articulation. Normal acromioclavicular joint. Normal acromion. Normal humeral head and visualized proximal humerus. The soft tissue structures are unremarkable. Normal visualized pulmonary apex. RAD/Shoulder min 2 Views IMPRESSION: Normal x-ray examination of the shoulder. Electronically Signed: Justin Bauer DO at 9:04 EST Tel [phone], Service support ,
== END ==
PROVIDERS: Family Provider Internal Medicine; PCP Internal Medicine; Visit Provider Internal Medicine
DX: M25.511 Pain in right shoulder (principal)
CPT/HCPCS: 73030

== ENCOUNTER → 2018-05-11 11:01 | Outpatient (CLI) | payer MEDICARE, BC, SELFPAY ==
[2018-04-17 11:49] VITALS: BMI 30.5
--- NOTE | 2018-05-11 11:05 | MRI_ITS ---
STUDY: MRI RIGHT SHOULDER REASON FOR EXAM: Right shoulder pain extending down arm for 7 months. TECHNIQUE: Standardized fat and water weighted pulse sequences were obtained in all 3 orthogonal planes. COMPARISON: Radiographs 05/01/2018. FINDINGS: There is a full-thickness tear of the supraspinatus and infraspinatus tendons retracted approximately 2.9 cm to the level of the acromioclavicular joint (T2 coronal images 9-16). There is mild subscapularis tendinosis (proton density axial images 10, 11) without discrete tendon tear. Normal teres minor tendon. There is mild atrophy with mild partial fat replacement of the supraspinatus and infraspinatus muscles (T2 sagittal image 22). Normal subscapularis muscle. Normal teres minor muscle. There is a small glenohumeral joint effusion. There is superior migration of the humeral head secondary to the retracted rotator cuff tear. There is a tear with nonvisualization of the intracapsular long biceps tendon. There is tear/degeneration of the posterior aspect of the superior labrum (coronal images 13, 14). Normal capsulo- ligamentous complex. There is mild acromioclavicular arthrosis without substantial undersurface osteophytes (proton-density coronal image 11). There is an os acromiale (proton-density sagittal image 13). There is a Type II morphology (curved), with a neutral orientation. There is a small volume of subacromial-subdeltoid bursal fluid. There is mild thickening of the coracoacromial ligament (T2 sagittal image 13). Normal deltoid muscle. Normal trapezius muscle. MRI/Upper Ext Joint Only(Routine) IMPRESSION: Full-thickness tear of the supraspinatus and infraspinatus tendons. Mild subscapularis tendinosis. Mild atrophy of the supraspinatus and infraspinatus muscles. Tear of the long biceps tendon. Tear/degeneration of the posterior aspect of the superior labrum. Mild acromioclavicular arthrosis. Os acromiale. Mild thickening of the coracoacromial ligament. Glenohumeral joint fluid communicating with the subacromial-subdeltoid bursa. Electronically Signed: Clement Roger MD at 9:06 EST Tel , Service support ,
== END ==
PROVIDERS: Family Provider Internal Medicine; PCP Internal Medicine; Referring Provider Internal Medicine; Visit Provider Internal Medicine
DX: M25.511 Pain in right shoulder (principal)
CPT/HCPCS: 73221

== ENCOUNTER → 2019-01-05 12:16 | Outpatient (CLI) | payer MEDICARE, BC, SELFPAY ==
[2018-02-04 15:24] VITALS: BMI 30.5
[2018-04-17 11:49] VITALS: BMI 30.5
--- NOTE | 2019-01-05 12:19 | BI_ITS ---
MAMMOGRAPHY - BILATERAL SCREENING REASON FOR EXAM: Female, 73 years old. Routine annual screening examination. PERTINENT HISTORY: Aunt with breast cancer. TECHNIQUE: Digital bilateral breast gerry (3D mammographic acquisition) in the CC and MLO projections. 2-D mediolateral oblique (MLO) and craniocaudad (CC) views of both breasts were obtained. CAD: Full Field Digital Mammography with Computer Added Detection was performed. COMPARISON: No comparison mammograms available at this time. If any prior films become available, an addendum to this report can be generated. FINDINGS: Breast Composition: There are scattered areas of fibroglandular density. There are no dominant masses or suspicious calcifications. No other significant abnormalities are identified. BI/SCREEN MAMM (CAD) W/GERRY BILAT IMPRESSION: Negative screening mammogram. Yearly followup mammogram recommended. (A) ASSESSMENT CATEGORY: BIRADS Category 1: Negative. A letter regarding these results will be sent to the patient by the facility within 30 days. Approximately 10% of breast cancers are not detected by mammography. A normal mammogram should not delay biopsy of a clinically suspicious abnormality. [id number] Electronically Signed: Ross Marie, at 8:04 EDT , Service support ,
--- NOTE | 2019-01-05 12:26 | BD_ITS ---
STUDY: DUAL ENERGY X-RAY ABSORPTIOMETRY / DXA REASON FOR EXAM: Female, 73 years old. The patient is postmenopausal. Loss of height. TECHNIQUE: Bone Mineral Density (BMD) measurements of lumbar spine and bilateral hips were obtained. COMPARISON: None. FINDINGS: Lumbar Spine (L1-L4): g/cm2 (1.077) / T-score (-0.7) / Z-score (1.0) Findings are suggestive of normal bone density with a low fracture risk. Left Femur Total: g/cm2 (0.945) / T-score (-0.5) / Z-score (1.1) Left Femoral Neck: g/cm2 (0.883) / T-score (-1.1) / Z-score (0.7) Right Femur Total: g/cm2 (0.932) / T-score (-0.6) / Z-score (1.0) Right Femoral Neck: g/cm2 (0.788) / T-score (-1.8) / Z-score (0.0) BD/Dexa Bone Density Study IMPRESSION: The patient is considered osteopenic as outlined below according to World Gil Organization (WHO) criteria with a moderate fracture risk. Reference Information: The T-score is the number of standard deviations above or below the standard which is normal for young adults at their peak bone mineral density. The World Health Organization (WHO) interprets the T-scores as follows: Above -1 Normal bone density Between -1 and -2.5 Osteopenia Equal to / or below -2.5 Osteoporosis As a practical clinical guideline, osteopenia may be graded as follows: Mild -1 through -1.5 Moderate -1.6 through -2.0 Severe -2.1 through -2.4 The Z-score is the number of standard deviations above or below age-matched controls. A Z-score of less than -1.5 would be considered abnormal. References: 1. NIH Osteoporosis and Related Bone Diseases http://www.osteo.org 2. International Society for Clinical Densitometry http://www.iscd.org 3. National Osteoporosis Foundation http://www.nof.org Electronically Signed: Ross Marie, at 9:42 EDT , Service support ,
== END ==
PROVIDERS: Family Provider Internal Medicine; PCP Internal Medicine; Referring Provider Internal Medicine; Visit Provider Internal Medicine
DX: Z12.31 Encounter for screening mammogram for malignant neoplasm of breast (principal); Z78.0 Asymptomatic menopausal state
CPT/HCPCS: 77063; 77067; 77080

== ENCOUNTER 2019-08-06 12:00 | Outpatient (RCR) | payer MEDICARE, BC, SELFPAY ==
[2018-04-17 11:49] VITALS: BMI 30.5
--- NOTE | 2019-06-09 13:23 | HP.PTEVAL_ITS ---
Patient's Visit Information JOSHUA MONTEZ is a 74 year old F referred to Physical Therapy by Jailene Aguilar DO with a diagnosis of LUMBAR BACK PAIN,DDD. Date of Evaluation: 06/09/19 Physical Therapist: Syed Alston, PT, Cert MDT, OCS - Visit Plan Frequency: 2x /Week Duration: 4 Weeks Plan: PT INTERVENTIONS DLS ABD/BACK,POSTURAL EX'S ,MODALTIES - Subjective Subjective: This 74 y/o female presents to physical therapy with lumbar back pain. Patient developed right low back pain several months. Seen Dr Aguilar recommended PT. Patient had PT in past with 2019. Aggraveting factors right walking and standing,bending,lifting . Allevaiting factors sitting ,resting . Denies parathesia/tingling. Bowel/bladder good. Pateint has dificulty sleeping. Patient did have x-rays - DDD. Coughing/sneezing-. Patient pain affects ho usework tasks, and ADLS' . Patient pain affects QOL. SOCAIL: . VOCATION: retired - Pain Right Back Pain Intensity (Out of 10): 9 Pain Intensity Range: 10 - Objective POSTURE: mild foward posture. GAIT: reciprocal pattern mild foward posture. PALPATION: tender L-S region. NEURO: denies parathesia/tingling ,reflexes L3-4,L4-5,L5-S1 1/3. SYMMTRIES: ALIGN. LUMBAR ROM: flexion mod loss pain,extension min loss,side glides min loss. MMT: quads/hams 4/5,hip flexion 4-/5,ankle 4/5. FLEXABLITY: hams WFL. - Special Tests L/S Slump test left side: Negative L/S Slump test right side: Negative L/S Left Straight Leg Raise: Negative L/S Right Straight Leg Raise: Negative Lumbar Standing: Flexion - Mechanical Response: No effect Lumbar Standing: Flexion - Symptoms During Testing: Increases Lumbar Standing: Flexion - Symptoms After Testing: Worse Lumbar Standing: Extension - Mechanical Response: No effect Lumbar Standing: Extension - Symptoms During Testing: Decreases Lumbar Standing: Extension - Symptoms After Testing: No better Lumbar Standing: Right Side Glides - Mechanical Response: No effect Lumbar Standing: Right Side Jackson - Symptoms During Testing: No effect Lumbar Standing: Right Side Jackson - Symptoms After Testing: No effect Lumbar Standing: Left Side Jackson - Mechanical Response: No effect Lumbar Standing: Left Side Jackson - Symptoms During Testing: No effect Lumbar Standing: Left Side Jackson - Symptoms After Testing: No effect - Goals Goal 1:: Independant with HEP Goal Time Frame: 4-6 Weeks Goal 2:: Improve posture for ADL'S Goal Time Frame: 4-6 Weeks Goal 3:: Patient to decrease back pain by 50% or > to improve function with ADL'S Goal Time Frame: 4-6 Weeks Goal 4:: Patient to improve lumbar ROM for function of recovery Goal Time Frame: 4-6 Weeks Goal 5:: Patient to increase back owestrey score by 5 points or > to improve QOL. Goal Time Frame: 4-6 Weeks - Rehabilitation Potential Physical Therapy Diagnosis: This patient has right lumbar pain with h/o DDD with pain with movement > with flexion ,walking/standing affects ADL's and housework tasks thus benifit from skilled PT Rehabilitation Potential: Good - Anticipated Interventions Patient/Client Instruction: Educate patient on: Condition, Plan of Care For the Purpose of:: To decrease pain, To increase ROM, To improve muscle performance and motor function, To improve ability to perform ADL's, To increase tolerance to activity/condition/position, To decrease level of supervision to perform tasks, To improve ability of physical actions for home/community/work/leisure, To improve health of tissue, To decrease soft tissue restriction, To improve ability to perform tasks related to life management Therapeutic Exercise to Include: Strength training, Postural training, Flexibilty training, Dynamic Lumbar Stabilization For the Purpose of:: To decrease pain, To increase ROM, To improve muscle performance and motor function, To improve ability to perform ADL's, To increase tolerance to activity/condition/position, To improve ability of physical actions for home/community/work/leisure, To improve health of tissue, To decrease soft tissue restriction, To increase flexibility/ROM, To improve ability to perform tasks related to life management TENS: Yes IF ES: Yes Cryotherapy (ice pack, ice massage): Yes Thermo therapy (hot pack): Yes Ultrasound (thermal/non thermal): Yes For the Purpose of:: To decrease pain, To increase ROM, To improve nutrient delivery to tissue, To increase oxygenation perfusion, To improve health of tissue, To decrease soft tissue restriction Thank you for the opportunity to evaluate your patient. For Medicare and Medicare HMO plans, please review the plan of care and approve it. It will need to be FAXED BACK to us at [phone] for Medicare purposes. For Medicare only, by signing this I certify the plan of care. Please let me know if there are questions or concerns regarding this plan of care. Physician Signature: Date:
--- NOTE | 2019-07-05 11:57 | HP.PTREVAL ---
Jailene Aguilar, DO, It has been my pleasure to treat JOSHUA MONTEZ over the last 10 visits for LUMBAR BACK PAIN,DDD. Please see the progress note below for an update on the physical therapy plan of care! Subjective: Doing better pain is still noticable when bending over Objective/Function: Godwin tx well with progression of goals: GAIT: reciprocal pattern. NEURO: intact. PALAPTION: tender LEFT L-S. LUMBAR ROM: flexion min loss ,ext min loss,side glides min loss pain R-L. MMT: quads/hams 4/5 ,hip flexion 4-/5,ankle 4/5 Plan Plan: CONT WITH POC 2XWEEK FOR 4 WEEKS PT INTERVENTIONS DLS ABD/BACK,POSTURAL EX'S ,MODALTIES Goals Goal 1:: Independant with HEP Goal Time Frame: 4-6 Weeks Goal Progress: Goal Met Goal 2:: Improve posture for ADL'S Goal Time Frame: 4-6 Weeks Goal Progress: Progressing Goal 3:: Patient to decrease back pain by 50% or > to improve function with ADL'S Goal Time Frame: 4-6 Weeks Goal Progress: Progressing Goal 4:: Patient to improve lumbar ROM for function of recovery Goal Time Frame: 4-6 Weeks Goal Progress: Progressing Goal 5:: Patient to increase back owestrey score by 5 points or > to improve QOL. Goal Time Frame: 4-6 Weeks Goal Progress: Progressing Anticipated Interventions Patient/Client Instruction: Educate patient on: Condition, Plan of Care For the Purpose of:: To decrease pain, To increase ROM, To improve muscle performance and motor function, To improve ability to perform ADL's, To increase tolerance to activity/condition/position, To decrease level of supervision to perform tasks, To improve ability of physical actions for home/community/work/leisure, To improve health of tissue, To decrease soft tissue restriction, To improve ability to perform tasks related to life management Therapeutic Exercise to Include: Strength training, Postural training, Flexibilty training, Dynamic Lumbar Stabilization For the Purpose of:: To decrease pain, To increase ROM, To improve muscle performance and motor function, To improve ability to perform ADL's, To increase tolerance to activity/condition/position, To improve ability of physical actions for home/community/work/leisure, To improve health of tissue, To decrease soft tissue restriction, To increase flexibility/ROM, To improve ability to perform tasks related to life management TENS: Yes IF ES: Yes Cryotherapy (ice pack, ice massage): Yes Thermo therapy (hot pack): Yes Ultrasound (thermal/non thermal): Yes For the Purpose of:: To decrease pain, To increase ROM, To improve nutrient delivery to tissue, To increase oxygenation perfusion, To improve health of tissue, To decrease soft tissue restriction Please do not hesitate to contact me at [phone] by phone or if you have questions or concerns regarding this new plan of care! Sincerely, Syed Alston, PT, Cert MDT, OCS
--- NOTE | 2019-08-06 12:47 | HP.PTDCSUM_ITS ---
It has been my pleasure to treat JOSHUA MONTEZ referred by Dr. Jailene Aguilar DO, with the diagnosis of LUMBAR BACK PAIN,DDD for a total of 19 visit(s). Discharge Date: Please see the following information for a summary of their discharge status. Subjective: Doing good ready to be d/c . Plan to do ex's on own at home. Walking/standing extended distances 1/2 hr. Strengthening ex's decreases pain. Right Back Pain Intensity (Out of 10): 2 % Improvement: 80 Objective/Function: POSTURE: mild foward posture. GAIT: reciprocal pattern slifgt lean to left. SYMMTRIES: left mild shift. LUMBAR ROM: flexion min loss,extension mild loss,side glides mild loss. MMT: quads/hams 4/5,hip 4- /5,ankle 4/5 Goal 1:: Independant with HEP Goal Progress: Goal Met Goal 2:: Improve posture for ADL'S Goal Progress: Goal Met Goal 3:: Patient to decrease back pain by 50% or > to improve function with ADL'S Goal Progress: Goal Met Goal 4:: Patient to improve lumbar ROM for function of recovery Goal Progress: Goal Met Goal 5:: Patient to increase back owestrey score by 5 points or > to improve QOL. Goal Progress: Goal Met Plan: D/C TO HEP If there are questions or concerns regarding this patient's physical therapy, please feel free to call me at [phone]. Thank you for the referral of this patient. Sincerely, Syed Alston, PT, Cert MDT, OCS
== END 2019-08-06 19:00 | disposition home or self-care (01) ==
LOC: PT 12:00
PROVIDERS: PCP Internal Medicine; Referring Provider Internal Medicine; Visit Provider Internal Medicine
DX: M54.5 Low back pain (principal); M51.36 Other intervertebral disc degeneration, lumbar region; M62.830 Muscle spasm of back
CPT/HCPCS: 97035; 97110; 97162

== ENCOUNTER → 2020-03-27 10:41 | Outpatient (CLI) | payer MEDICARE, BC, SELFPAY ==
[2018-04-17 11:49] VITALS: BMI 30.5
--- NOTE | 2020-03-27 10:43 | BI_ITS ---
MAMMOGRAPHY - BILATERAL SCREENING REASON FOR EXAM: Female, 75 years old. Routine annual screening examination. PERTINENT HISTORY: Aunt with breast cancer. TECHNIQUE: Digital bilateral breast gerry (3D mammographic acquisition) in the CC and MLO projections. 2-D mediolateral oblique (MLO) and craniocaudad (CC) views of both breasts were obtained. CAD: Full Field Digital Mammography with Computer Added Detection was performed. COMPARISON: Comparison is made with prior study dated 01/05/2019. FINDINGS: Breast Composition: There are scattered areas of fibroglandular density. There are no dominant masses or suspicious calcifications. Stable benign-appearing bilateral axillary lymph nodes. No other significant abnormalities are identified. There has been no significant change since the prior study. BI/SCREEN MAMM (CAD) W/GERRY BILAT IMPRESSION: Stable bilateral screening mammogram. Yearly follow-up mammogram recommended. (A) ASSESSMENT CATEGORY: BIRADS Category 2: Benign. A letter regarding these results will be sent to the patient by the facility within 30 days. Approximately 10% of breast cancers are not detected by mammography. A normal mammogram should not delay biopsy of a clinically suspicious abnormality. [id number] Electronically Signed: Ross Marie, at 14:31 EST , Service support ,
== END ==
PROVIDERS: PCP Internal Medicine; Visit Provider Internal Medicine
DX: Z12.31 Encounter for screening mammogram for malignant neoplasm of breast (principal)
CPT/HCPCS: 77063; 77067

== ENCOUNTER → 2020-06-23 08:42 | Outpatient (CLI) | payer MEDICARE, BC, SELFPAY ==
[2018-04-17 11:49] VITALS: BMI 30.5
--- NOTE | 2020-06-23 08:46 | RDU_ITS ---
Reason For Study: HTN Right Renal Artery Left Renal Artery Right renal artery ostium 65/21 Left renal artery ostium 107/28 RSV/EDV. PSV/EDV. Right renal artery proximal 122/49 Left renal artery proximal PSV/EDV PSV/EDV. 94/20 . Right renal artery mid 210/61 Left renal artery mid 125/46 PSV/EDV. PSV/EDV . Right renal artery distal 181/48 Left renal artery distal 147/46 PSV/EDV. PSV/EDV. Right RAR 2.73. Left RAR 1.91. Right Renal Parenchyma Left Renal Parenchyma Upper Pole Medula 18/7 PSV/EDV. Left upper pole medulla 42/14 Right upper pole medulla EDR 0.39 . PSV/EDV . Right upper pole medulla R.I. Left upper pole medulla EDR 0.33 . 0.60 . Left upper pole medulla R.I. 0.68 . Upper Dm Cortx 21/8 PSV/EDV. UP Cortex 28/10 PSV/EDV. Right upper pole cortex EDR 0.38 . Left upper pole cortex EDR 0.36 . Right upper pole cortex R.I. 0.63 . Left upper pole cortex R.I. 0.63 . Right lower Pole medulla 41/15 Left lower Pole medulla 29/11 PSV/EDV . PSV/EDV . Right lower pole medulla EDR 0.37 . Left lower pole medulla EDR 0.38 . Right lower pole medulla R.I. Left lower pole medulla R.I. 0.62 . 0.64 . Lower Pole Cortx 26/10 PSV/EDV. Lower Pole Cortex 23/10 PSV/EDV. Left lower pole cortex EDR 0.38 . Right lower pole cortex EDR 0.43 . Left lower pole cortex R.I. 0.63 . Right lower pole cortex R.I. 0.57 . Left Renal Hilar Right Renal Hilar LT Hilar avg 66/23 PSV/EDV . Right Hilar avg 67/25 PSV/EDV. Left hilar acceleration time 60 Right hilar acceleration time 80 m/sec. m/sec. Left Renal Dimensions Right Renal Dimensions Left kidney size 10.46 cm . Right kidney size 11.01 cm . Left cortical dimension 1.52 cm . Right cortical dimension 1.36 cm . Aorta Proximal abdominal aorta 2.53cm x 2.49 cm . Proximal abdominal aorta peak systolic velocity is 77 cm/sec . Distal abdominal aorta 1.79cm x 2.06 cm . Distal abdominal aorta peak systolic velocity is 63 cm/sec . VL/Renal Artery Duplex Ultrasound Interpretation Summary Maximal aortic diameter proximally 2.53 x 2.49 cm. Normal flow rate noted. Less than 60% stenosis right mid renal artery although borderline. Renal artery to aortic ratio of 3.5 to make this determination and current renal artery to aortic ratio is 2.73 Right renal length maintained at 11.01 cm Less then 60% stenosis left renal artery Left renal length maintained at 10.46 cm Ordering Physician: Jailene Aguilar Referring Physician: Jailene Aguilar Performed By: Neda Figueredo, ALEJA, RVT
== END ==
PROVIDERS: PCP Internal Medicine; Referring Provider Internal Medicine; Visit Provider Internal Medicine
DX: I10 Essential (primary) hypertension (principal)
CPT/HCPCS: 93975

== ENCOUNTER → 2020-08-28 13:59 | Outpatient (CLI) | payer MEDICARE, BC, SELFPAY ==
[2018-04-17 11:49] VITALS: BMI 30.5
[2020-08-28 15:44] LABS: Hematocrit 38.8 % (37-47); Hemoglobin 12.9 g/dL (12.0-15.0); Mean Corp Hgb Conc 33.2 g/dL (32-36); Mean Corpuscular Hgb 32.5 pg (27.0-32.0); Mean Corpuscular Volume 97.7 fL (81-99); Mean Platelet Vol. 9.6 fl (6.2-12.0); Platelet Count 321 K/mm3 (150-450); RBC Distribution Width CV 12.4 % (11.6-14.6); RBC Distribution Width SD 44.9 fl (35.1-43.9); Red Blood Count 3.97 M/mm3 (4.2-5.4); White Blood Count 8.8 K/mm3 (4.4-11.0)
[2020-08-28 15:57] LABS: BUN 26 mg/dL (7-18); BUN/Creat Ratio 29.7 RATIO (10-20); Calcium,Total 9.4 mg/dL (8.5-10.1); Chloride 103 mmol/L (98-107); Creatinine, Serum 0.88 mg/dL (0.55-1.02); EST Glomerular Filtration Rate 67 mL/min (>60); Est Glom Filt Rate - Afr Amer 81 mL/min (>60); Glucose 97 mg/dL (74-106); Magnesium 2.1 mg/dL (1.6-2.6); Phosphorus 3.4 mg/dL (2.5-4.9); Potassium 3.7 mmol/L (3.5-5.1); Sodium Level 138 mmol/L (136-145)
[2020-08-28 16:18] LABS: Vitamin D,25 Hydroxy 50.7 ng/mL
[2020-08-28 18:26] LABS: Microalbumin,Random Urine 5.5 mg/L (NO RANGE EST.); Microalbumin:Creatinine Ratio 8.8 mg/g CRE (<30 mg/g CRE)
[2020-08-29 07:58] LABS: PTHIN 43.5 pg/mL (18.4-80.1)
== END ==
PROVIDERS: PCP Internal Medicine; Referring Provider Internal Medicine Nephrology; Visit Provider Internal Medicine Nephrology
DX: I10 Essential (primary) hypertension (principal); E55.9 Vitamin D deficiency, unspecified
CPT/HCPCS: 36415; 80069; 82043; 82306; 82570; 83735; 83970; 85027

== ENCOUNTER → 2020-09-12 10:37 | Outpatient (CLI) | payer MEDICARE, BC, SELFPAY ==
[2018-04-17 11:49] VITALS: BMI 30.5
--- NOTE | 2020-09-12 10:40 | EKG12_ITS ---
Test Reason : HTN Blood Pressure : / mmHG Vent. Rate : 056 BPM Atrial Rate : 056 BPM P-R Int : 168 ms QRS Dur : 078 ms QT Int : 414 ms P-R-T Axes : 031 003 024 degrees QTc Int : 399 ms Sinus bradycardia Otherwise normal ECG Confirmed by TITI PEDRAZA, GABRIEL ([id number]), production editor MATILDE SAWYER ([id number]) on 09/13/2020 9:32:11 AM Referred By: Yair Garcia Confirmed By:GABRIEL WALLS MD
== END ==
PROVIDERS: PCP Internal Medicine; Referring Provider Internal Medicine Nephrology; Visit Provider Internal Medicine Nephrology
DX: I10 Essential (primary) hypertension (principal)
CPT/HCPCS: 93005

== ENCOUNTER 2021-01-10 11:30 | Outpatient (RCR) | payer MEDICARE, BC, SELFPAY ==
--- NOTE | 2020-12-20 11:28 | HP.PTEVAL_ITS ---
Patient's Visit Information JOSHUA MONTEZ is a 75 year old F referred to Physical Therapy by Dr. Jailene Aguilar DO with a diagnosis of BPV. Date of Evaluation: 12/20/20 Physical Therapist: Bryant Pro, LYNNETTET, OCS, CSCS - Visit Plan Frequency: 1-2x /Week Duration: 2-4 Weeks Plan: 1-2x/week as needed for 2-4 weeks for positional monitor and balance as needed. Pt did not have obvious positive psoitional test but worhtwhile trial. - Subjective Eliz been having problems with dizzyness mostly if gets up after sitting too long. It can happen walking or moving gently at times also. Not getting out of bed. Not a big problem right now but getting more frequent and stronger. It has been going on for about a month, started out of nowhere. Described as lightheadedness, dizzyness and lasts up to a minute. Not when get in bed or roll in bed but sometimes if bends over.. It is infrequent 2-5x/week. Saw doctor and gave meds for it and cleaned out ear. Meds is Meclizine whcih she takes with a bad bout. It helps her to feel better. Sleeping is in bed , flat and sleeping well. kept her from going to the fair but otherwise is ADLs. Balance is OK, no falss prior to this or during. No cane or walker. Will carry walking stick if gets dizzy. Steps are not a problem. Hobbies include dogs and playing with them. Not employed, retired. - Objective Walks I and normal into and out of PT. Transfers bed and chair I. Steps reciprocal with one rail. Cervical AROM is WNL and painfree today. UE AROM WFL. - L HD. + R HD for assymetrical dizzyness but no obvious nystagmus today. Treated with r amber - Balance/Special Test Scores Functional Gait Assessment Score: 25 % Disability: 16.6700 Dizziness Score: 34 - Goals Goal 1:: Abolish dizzyness at home standing up for one week Goal Time Frame: 2-4 Weeks Goal 2:: Blance feels 75% better and I in managment Goal Time Frame: 2-4 Weeks - Rehabilitation Potential Physical Therapy Diagnosis: BPV possible and related subjective balance deficits. Rehabilitation Potential: Fair - Anticipated Interventions Patient/Client Instruction: Educate patient on: Condition, Plan of Care For the Purpose of:: To increase tolerance to activity/condition/position, To improve balance Therapeutic Exercise to Include: Balance training Comment: positional,vestibualr as needed. For the Purpose of:: To increase tolerance to activity/condition/position, To improve balance Thank you for the opportunity to evaluate your patient. For Medicare and Medicare HMO plans, please review the plan of care and approve it. It will need to be FAXED BACK to us at [phone] for Medicare purposes. For Medicare only, by signing this I certify the plan of care. Please let me know if there are questions or concerns regarding this plan of ca re. Physician Signature: Date:
--- NOTE | 2021-01-10 11:47 | HP.PTDCSUM ---
It has been my pleasure to treat JOSHUA MONTEZ referred by Dr. Jailene Aguilar DO, with the diagnosis of BPV for a total of 3 visit(s). Discharge Date: 01/10/21 Please see the following information for a summary of their discharge status. Subjective: Better. less intense. Frequency is slightly better. Doing both exercises and VOR is hard to do. BD ex not making her dizzy at all. Dizzyness in last 2 weeks was only 2 of those days and one was very brief and the other was not real long compared to what they had been and could function with it. To doctor in January. % Improvement: 90 Objective/Function: Balance better. VOR improved quality and no symptoms. MSQ only slightly dizzy with head turns and nods. VOR x 2 not a symptomatic problem and good quality. overall much improved and appropriate to marisol Mendoza ex prescribed adn f/u with doctor in a couple weeks. Goal 1:: Abolish dizzyness at home standing up for one week Goal Progress: Progressing Goal 2:: Nonae feels 75% better and I in managment Goal Progress: Goal Met Plan: d/c to HEP, pt to see doctor in a coupkle weeks and call prior if dizzyness worsens again. If there are questions or concerns regarding this patient's physical therapy, please feel free to call me at [phone]. Thank you for the referral of this patient. Sincerely, Bryant Pro, DPT, OCS, CSCS Balance/Gait/Functional tests - Balance/Special Test Scores Functional Gait Assessment Score: 26 % Disability: 13.3400 Dizziness Score: 12
== END 2021-01-10 15:08 | disposition home or self-care (01) ==
LOC: PT 11:30
PROVIDERS: PCP Internal Medicine; Referring Provider Internal Medicine; Visit Provider Internal Medicine
DX: H81.10 Benign paroxysmal vertigo, unspecified ear (principal)
CPT/HCPCS: 97110; 97161; 97530

== ENCOUNTER 2021-03-29 10:57 | Outpatient (CLI) | payer MEDICARE, BC, SELFPAY ==
--- NOTE | 2021-03-29 11:45 | MRI_ITS ---
History: H/A EXAMINATION: MRA Head W/O Contrast TECHNIQUE: Routine [place] of [place]/brain 3D time of flight MR angiogram protocol was performed without gadolinium. 3D reconstructions were reviewed. IV Contrast dosage and agent: COMPARISON: None FINDINGS: --Anterior circulation: ICAs: No significant stenosis at the intracranial/visualized segments. ACAs: No significant stenosis at the visualized segments. ACOM: Present. MCAs: No significant stenosis at the visualized segments. --Posterior circulation: PCOMs: Left P-comm is present. french binder: No significant stenosis at the visualized segments. BASILAR ARTERY: No significant stenosis. VERTEBRAL ARTERIES: Small right vertebral artery terminates in inferior cerebellar branches. No evidence of intracranial aneurysm or vascular malformation. MRI/MRA Head ONLY without Contrast IMPRESSION: No evidence of arterial stenosis, occlusion or aneurysm. at 1239 Reported and signed by: Héctor De Leon MD Electronically Signed: Héctor De Leon MD at 12:38 EST Tel , Service support ,
== END 2021-03-29 23:59 | disposition short-term general hospital (02) ==
LOC: MRI 11:00
PROVIDERS: PCP Internal Medicine; Referring Provider Internal Medicine Nephrology; Visit Provider Internal Medicine Nephrology
DX: R51.9 Headache, unspecified (principal)
CPT/HCPCS: 70544

== ENCOUNTER 2021-05-21 13:48 | Outpatient (CLI) | payer MEDICARE, BC, SELFPAY ==
--- NOTE | 2021-05-21 13:50 | BI_ITS ---
MAMMOGRAPHY - BILATERAL SCREENING REASON FOR EXAM: Female, 76 years old. Routine annual screening examination. PERTINENT HISTORY: Aunt with breast cancer. TECHNIQUE: Digital bilateral breast gerry (3D mammographic acquisition) in the CC and MLO projections. 2-D mediolateral oblique (MLO) and craniocaudad (CC) views of both breasts were obtained. CAD: Full Field Digital Mammography with Computer Added Detection was performed. COMPARISON: Comparison is made with prior study dated 03/27/2020 and 01/05/2019. FINDINGS: Breast Composition: There are scattered areas of fibroglandular density. There are no dominant masses or suspicious calcifications. Stable benign-appearing bilateral axillary lymph nodes. No other significant abnormalities are identified. There has been no significant change since the prior study. BI/SCRN MAMM (CAD)W/GERRY BILAT IMPRESSION: Stable bilateral screening mammogram. Yearly follow-up mammogram recommended. (A) ASSESSMENT CATEGORY: BIRADS Category 2: Benign. A letter regarding these results will be sent to the patient by the facility within 30 days. Approximately 10% of breast cancers are not detected by mammography. A normal mammogram should not delay biopsy of a clinically suspicious abnormality. [id number] Electronically Signed: Ross Marie MD at 14:51 EST ,
== END 2021-05-21 23:59 | disposition home or self-care (01) ==
LOC: OPBI 13:49
PROVIDERS: PCP Internal Medicine; Visit Provider Internal Medicine
DX: Z12.31 Encounter for screening mammogram for malignant neoplasm of breast (principal)
CPT/HCPCS: 77063; 77067

== ENCOUNTER 2021-05-22 10:48 | Outpatient (CLI) | payer MEDICARE, BC, SELFPAY ==
--- NOTE | 2021-05-22 10:57 | BD_ITS ---
STUDY: DUAL ENERGY X-RAY ABSORPTIOMETRY / DXA REASON FOR EXAM: Female, 76 years old. N95.9. The patient is postmenopausal. TECHNIQUE: Bone Mineral Density (BMD) measurements of lumbar spine and bilateral hips were obtained. COMPARISON: Comparison is made with prior study done 01/05/2019. FINDINGS: Lumbar Spine (L1-L4): g/cm2 (0.847) / T-score (-1.7) / Z-score (0.7) Findings are suggestive of osteopenia with a moderate fracture risk. Left Femur Total: g/cm2 (0.916) / T-score (-0.2) / Z-score (1.6) Left Femoral Neck: g/cm2 (0.637) / T-score (-1.9) / Z-score (0.2) Right Femur Total: g/cm2 (0.893) / T-score (-0.4) / Z-score (1.4) Right Femoral Neck: g/cm2 (0.596) / T-score (-2.3) / Z-score (-0.2) The T-Scores on the most recent prior examination were: Lumbar Spine (L1-L4): There has been worsening of bone density since the previous examination. Left Femur Total: which represents an improvement of 4%. Right Femur Total: which represents an improvement of 2.9%. BD/Dexa Bone Density Study IMPRESSION: The patient is considered osteopenic as outlined below according to World Gil Organization (WHO) criteria with a high fracture risk. There has been improvement of bone density since the previous examination. Reference Information: The T-score is the number of standard deviations above or below the standard which is normal for young adults at their peak bone mineral density. The World Health Organization (WHO) interprets the T-scores as follows: Above -1 Normal bone density Between -1 and -2.5 Osteopenia Equal to / or below -2.5 Osteoporosis As a practical clinical guideline, osteopenia may be graded as follows: Mild -1 through -1.5 Moderate -1.6 through -2.0 Severe -2.1 through -2.4 The Z-score is the number of standard deviations above or below age-matched controls. A Z-score of less than -1.5 would be considered abnormal. References: 1. NIH Osteoporosis and Related Bone Diseases www osteo.org 2. International Society for Clinical Densitometry www iscd.org 3. National Osteoporosis Foundation www nof.org Electronically Signed: Ross Marie MD at 12:19 EST ,
== END 2021-05-22 23:59 | disposition home or self-care (01) ==
LOC: OPBD 10:49
PROVIDERS: PCP Internal Medicine; Referring Provider Internal Medicine; Visit Provider Internal Medicine
DX: Z78.0 Asymptomatic menopausal state (principal)
CPT/HCPCS: 77080

== ENCOUNTER 2021-11-07 16:23 | Outpatient (CLI) | payer MEDICARE, BC, SELFPAY ==
[2021-11-07] MEDS: 0.9% Saline Lock 10 ML Syringe IV ×2 (16:38→16:49)
[2021-11-07 16:41] VITALS: BP 126/73; PULSE 60; RESP 16; TEMP 36.4; O2SAT 97; BMI 32.9
[2021-11-07] MEDS: BEBTELOVIMAB 175 MG/2 ML VIAL IV (16:46)
[2021-11-07 17:15] VITALS: BP 110/73; PULSE 57; RESP 16; TEMP 37.3; O2SAT 97
[2021-11-07 17:39] VITALS: BP 121/72; PULSE 55; RESP 18; TEMP 36.6; O2SAT 97
== END 2021-11-07 17:46 | disposition home or self-care (01) ==
LOC: MS3OUT 16:24 → MS2 16:25
PROVIDERS: PCP Internal Medicine; Referring Provider Nurse Practitioner Adult Health; Visit Provider Nurse Practitioner Adult Health
DX: U07.1 COVID-19 (principal)
CPT/HCPCS: M0222; A4216

== ENCOUNTER 2022-02-04 14:36 | Outpatient (CLI) | payer MEDICARE, BC, SELFPAY ==
[2022-02-04 18:19] LABS: Hematocrit 41.1 % (37-47); Hemoglobin 13.2 g/dL (12.0-15.0); Mean Corp Hgb Conc 32.1 g/dL (32-36); Mean Corpuscular Hgb 32.9 pg (27.0-32.0); Mean Corpuscular Volume 102.5 fL (81-99); Mean Platelet Vol. 9.8 fl (6.2-12.0); Platelet Count 327 K/mm3 (150-450); RBC Distribution Width SD 49.2 fl (35.1-43.9); Red Blood Count 4.01 M/mm3 (4.2-5.4); White Blood Count 7.8 K/mm3 (4.4-11.0)
[2022-02-04 18:30] LABS: Albumin, Serum 3.8 g/dL (3.2-5.0); BUN 24 mg/dL (7-18); BUN/Creat Ratio 35.6 RATIO (10-20); Calcium,Total 8.6 mg/dL (8.5-10.1); Chloride 103 mmol/L (98-107); Creatinine, Serum 0.68 mg/dL (0.55-1.02); EST Glomerular Filtration Rate 90 mL/min (>60); Est Glom Filt Rate - Afr Amer 109 mL/min (>60); Glucose 88 mg/dL (74-106); Magnesium 2.4 mg/dL (1.6-2.6); Phosphorus 3.2 mg/dL (2.5-4.9); Potassium 3.6 mmol/L (3.5-5.1); Sodium Level 139 mmol/L (136-145)
[2022-02-04 18:41] LABS: Microalbumin,Random Urine 7.2 mg/L (NO RANGE EST.); Microalbumin:Creatinine Ratio 9.5 mg/g CRE (<30 mg/g CRE); Vitamin D,25 Hydroxy 54.4 ng/mL
[2022-02-05 08:13] LABS: PTHIN 76.1 pg/mL (18.4-80.1)
== END 2022-02-04 23:59 | disposition home or self-care (01) ==
PROVIDERS: PCP Internal Medicine; Referring Provider Internal Medicine Nephrology; Visit Provider Internal Medicine Nephrology
DX: E55.9 Vitamin D deficiency, unspecified (principal); I10 Essential (primary) hypertension
CPT/HCPCS: 36415; 80069; 82043; 82306; 82570; 83735; 83970; 85027

== ENCOUNTER → 2022-05-30 | Outpatient (CLI) | payer MEDICARE, BC, SELFPAY ==
--- NOTE | 2022-05-30 09:55 | BI_ITS ---
MAMMOGRAPHY - BILATERAL SCREENING REASON FOR EXAM: Female, 77 years old. Routine annual screening examination. PERTINENT HISTORY: Aunt with breast cancer. TECHNIQUE: Digital bilateral breast gerry (3D mammographic acquisition) in the CC and MLO projections. 2-D mediolateral oblique (MLO) and craniocaudad (CC) views of both breasts were obtained. CAD: Full Field Digital Mammography with Computer Added Detection was performed. COMPARISON: Comparison is made with prior study May 21, 2021 and March 27, 2020. FINDINGS: Breast Composition: There are scattered areas of fibroglandular density. There are no dominant masses or suspicious calcifications. Stable small benign-appearing bilateral axillary nodes. No other significant abnormalities are identified. There has been no significant change since the prior study. BI/SCRN MAMM (CAD)W/GERRY BILAT IMPRESSION: Stable bilateral screening mammogram. Yearly follow-up mammogram recommended. (A) ASSESSMENT CATEGORY: BIRADS Category 2: Benign. A letter regarding these results will be sent to the patient by the facility within 30 days. Approximately 10% of breast cancers are not detected by mammography. A normal mammogram should not delay biopsy of a clinically suspicious abnormality. [id number] Electronically Signed: Ross Marie MD at 11:06 EST ,
== END | disposition home or self-care (01) ==
LOC: OPBI 09:54
PROVIDERS: PCP Internal Medicine; Visit Provider Internal Medicine
DX: Z12.31 Encounter for screening mammogram for malignant neoplasm of breast (principal)
CPT/HCPCS: 77063; 77067

== ENCOUNTER → 2022-06-06 | Outpatient (CLI) | payer MEDICARE, BC, SELFPAY ==
--- NOTE | 2022-06-06 11:41 | MRI_ITS ---
EXAM: MR HEAD WITHOUT INTRAVENOUS CONTRAST CLINICAL INDICATION: ATAXIA;UNSTABLE BALANCE approx 2 yrs TECHNIQUE: Multiplanar and multisequence MR images of the brain were obtained without intravenous contrast. This report was created using [employer] report generation technology. COMPARISON: None. FINDINGS: BRAIN AND EXTRA-AXIAL SPACES: Unremarkable. No intra- or extra-axial hemorrhage. No evidence of acute infarct. No intracranial mass or mass effect. There is preservation of the del angel/white matter interface. Posterior fossa structures are unremarkable. Ventricles are appropriate for age. No hydrocephalus. Basal cisterns are patent. SELLA: Unremarkable. Normal sella turcica, pituitary gland, infundibular stalk, optic chiasm and hypothalamus. AUDITORY SYSTEM: Unremarkable. The internal auditory canals are patent. BONES/JOINTS: Unremarkable. No discrete lytic or blastic abnormalities. SINUSES: Unremarkable as visualized. Clear. MASTOID AIR CELLS: Unremarkable as visualized. Clear. ORBITS: Unremarkable as visualized. Both globes, extraocular muscles, optic nerves and retrobulbar fat appear unremarkable. VASCULATURE: Unremarkable as visualized. Normal flow voids in the major intracranial circulation. MRI/Brain without Contrast IMPRESSION: Negative MRI brain without intravenous contrast. Electronically Signed: Boom Macuhca MD at 14:36 EDT ,
== END | disposition home or self-care (01) ==
LOC: MRI 10:51
PROVIDERS: PCP Internal Medicine; Referring Provider Internal Medicine; Visit Provider Internal Medicine
DX: R26.89 Other abnormalities of gait and mobility (principal)
CPT/HCPCS: 70551

== ENCOUNTER 2022-07-11 12:30 | Outpatient (RCR) | payer MEDICARE, BC, SELFPAY ==
--- NOTE | 2022-06-04 12:41 | HP.PTEVAL ---
Patient's Visit Information JOSHUA MONTEZ is a 77 year old F referred to Physical Therapy by Jailene Aguilar DO with a diagnosis of unstable balance, abnormal gait. Date of Evaluation: 06/04/22 Physical Therapist: Bryant Pro, LYNNETTET, OCS, CSCS - Visit Plan Frequency: 2x /Week Duration: 4-6 Weeks Plan: Biodex balance tests, then 2x/week for 2-4 weeks to teach exercises per results...likely emphasis on VOR, foam, large steps and weight shifting. - Subjective Having trouble with balance that is concerning. Feels off kilter in am. No falls or LOB but feels off kilter and like walking slow and careful. No problems the rest of the day. Carrying two items in [place] Yesterday and felt unsteady. Has been gradually getting here for some time/last 3 years. Activities are pretty normal. Sleep is OK. Sometimes shoulder pain R as she has a bad tendon.Takes baby steps in small spaces in am. No nueropathy, no recent spinning. Not employed. Spends day reading, watching TV, running errands. Hobbies include reading and taking care of big dogs, no walking. No regualr exercises outside of walking 1 mile 5 days per week. - Objective VOR walking gives short and choppier steps but able. Walks into PT I , trasnfer chair and bed I. steps reciprocal with on rail. UE adn LE AROM WFL, has s ome tightness in B HS. 2/3 B patella and achilles reflexes without clonus. Sensation LE WNL to gross light touch. Strength hips 4/5, knees 4+ and ankles 4+. coordination to reciprocal toe and heel tap is good, heel to hannon test is good, reciprocal hand tap is good. - Balance/Special Test Scores Functional Gait Assessment Score: 26 % Disability: 13.3400 CATSIB Score (Max score 120 seconds): 96 Lower Extremity Functional Score: 74 TUG Test Time Seconds: 8 30 Second Chair Rise Test Seconds: 16 - Goals Goal 1:: I approp HEP for vestibular balance challenges, VOR and weight shifts as needed. Goal Time Frame: 2-4 Weeks Goal 2:: Biodex balance testing Goal Time Frame: 2 Weeks Goal 3:: Patient feel 50% better in overall balance. Goal Time Frame: 2-4 Weeks - Rehabilitation Potential Physical Therapy Diagnosis: Unsteady with vestibular challenges Rehabilitation Potential: Fair - Anticipated Interventions Patient/Client Instruction: Educate patient on: Condition, Plan of Care For the Purpose of:: To increase tolerance to activity/condition/position, To improve ability of physical actions for home/community/work/leisure Therapeutic Exercise to Include: Balance training, Gait and locomotor training For the Purpose of:: To improve muscle performance and motor function, To improve ability of physical actions for home/community/work/leisure, To improve gait and locomotor functions Thank you for the opportunity to evaluate your patient. For Medicare and Medicare HMO plans, please review the plan of care and approve it. It will need to be FAXED BACK to us at [phone] for Medicare purposes. For Medicare only, by signing this I certify the plan of care. Please let me know if there are questions or concerns regarding this plan of care. Physician Signature: Date:
--- NOTE | 2022-06-11 12:38 | HP.PTCOM ---
PT Communication Note 06/11/[address] Jailene Aguilar, DO , Thank you for the referral of Tiffany to [facility] for balance assessment. i have enclosed a copy of the results for your review. In summation, she scored low on the weight shifts in Limits of Stability test in all directions. she score low on Modified CTSIB particularly in eyes closed and firm ground. With these results in mind, I plan to work with her on an exercise regimen to address balance deficits and strength that she will be able to continue fdc as a member here at [facility]. Please do not hesitate to contact me if there are questions regarding her plan of care. Sincerely, Bryant Pro, DPT, OCS, CSCS Contact Information
--- NOTE | 2022-06-27 13:21 | HP.PTREVAL ---
Jailene Aguilar, DO, It has been my pleasure to treat JOSHUA MONTEZ over the last 6 visits for unstable balance, abnormal gait. Please see the progress note below for an update on the physical therapy plan of care! Subjective: Feels like it is helping, has a ways to go. Feeling a little more confident. Muscles in legs feeling stronger. Doing balance stuff at home. Strengthening going well. Will join [employer] and continue on. Feels like needs more instruction for comfort with machines. Objective/Function: FGa about the same, feels more confident and can continue baance on her own but not able and I yet with machine based strength. Will add this to plan with fair prognosis. Plan Plan: 2x/weeek for 2 weeks to gain I with machine based strength for memebership. Please do lleg press, hip abd, knee ext/flexion, glut ham, pull down, shoulder press and row and give list for I member when able. Pt to do balance ex on own and ask questions if needed. Balance/Gait/Functional tests - Balance/Special Test Scores Functional Gait Assessment Score: 25 % Disability: 16.6700 CATSIB Score (Max score 120 seconds): 96 Lower Extremity Functional Score: 59 TUG Test Time Seconds: 8 Tug Test: <10 sec.=free mobile 30 Second Chair Rise Test Seconds: 16 Goals Goal 1:: I approp HEP for vestibular balance challenges, VOR and weight shifts as needed. Goal Time Frame: 2-4 Weeks Goal Progress: Goal Met Goal 2:: Biodex balance testing Goal Time Frame: 2 Weeks Goal Progress: Goal Met Goal 3:: Patient feel 50% better in overall balance. Goal Time Frame: 2-4 Weeks Goal Progress: Goal Met Goal 4:: I machine based LE strength Goal Time Frame: 2-4 Weeks Goal Progress: NEW GOAL Anticipated Interventions Patient/Client Instruction: Educate patient on: Condition, Plan of Care For the Purpose of:: To increase tolerance to activity/condition/position, To improve ability of physical actions for home/community/work/leisure Therapeutic Exercise to Include: Balance training, Gait and locomotor training For the Purpose of:: To improve muscle performance and motor function, To improve ability of physical actions for home/community/work/leisure, To improve gait and locomotor functions Please do not hesitate to contact me at [phone] by phone or if you have questions or concerns regarding this new plan of care! Sincerely, Bryant Pro, DPT, OCS, CSCS
--- NOTE | 2022-07-11 12:45 | HP.PTDCSUM ---
It has been my pleasure to treat JOSHUA MONTEZ referred by Jailene Aguilar DO, with the diagnosis of unstable balance, abnormal gait for a total of 10 visit(s). Discharge Date: 07/11/22 Please see the following information for a summary of their discharge status. Subjective: Overall pretty good. Exercises at home are helping with balance. After her workout Friday felt much better. Balance is improving. No f/u with doctor. Will come in 3x/week. % Improvement: 90 Objective/Function: FGA is +2 overall and above average for age. Feels like she is doing wella nd can continue to do ex as member 3x.week. Goal 1:: I approp HEP for vestibular balance challenges, VOR and weight shifts as needed. Goal Progress: Goal Met Goal 2:: Biodex balance testing Goal Progress: Goal Met Goal 3:: Patient feel 50% better in overall balance. Goal Progress: Goal Met Goal 4:: I machine based LE strength Goal Progress: Goal Met Plan: d/c If there are questions or concerns regarding this patient's physical therapy, please feel free to call me at [phone]. Thank you for the referral of this patient. Sincerely, Bryant Pro, DPT, OCS, CSCS Balance/Gait/Functional tests - Balance/Special Test Scores Functional Gait Assessment Score: 28 % Disability: 6.6700 CATSIB Score (Max score 120 seconds): 96 Lower Extremity Functional Score: 72 TUG Test Time Seconds: 8 Tug Test: <10 sec.=free mobile 30 Second Chair Rise Test Seconds: 16
== END 2022-07-11 14:58 | disposition home or self-care (01) ==
LOC: PT 12:30
PROVIDERS: PCP Internal Medicine; Referring Provider Internal Medicine; Visit Provider Internal Medicine
DX: R26.81 Unsteadiness on feet (principal)
CPT/HCPCS: 97110; 97161; 97164; 97750

== ENCOUNTER → 2022-08-29 | Outpatient (CLI) | payer MEDICARE, BC, SELFPAY ==
[2022-08-29 12:53] LABS: Vitamin D,25 Hydroxy 59.8 ng/mL
[2022-08-29 13:40] LABS: Albumin, Serum 3.6 g/dL (3.2-5.0); BUN 24 mg/dL (7-18); BUN/Creat Ratio 38.3 RATIO (10-20); Calcium,Total 9.2 mg/dL (8.5-10.1); Chloride 108 mmol/L (98-107); Creatinine, Serum 0.63 mg/dL (0.55-1.02); EST Glomerular Filtration Rate 98 mL/min (>60); Est Glom Filt Rate - Afr Amer 119 mL/min (>60); Glucose 72 mg/dL (74-106); Magnesium 2.5 mg/dL (1.6-2.6); Phosphorus 3.1 mg/dL (2.5-4.9); Potassium 4.1 mmol/L (3.5-5.1); Sodium Level 139 mmol/L (136-145)
[2022-08-29 15:51] LABS: Microalbumin,Random Urine < 5.0 mg/L (NO RANGE EST.)
== END | disposition home or self-care (01) ==
LOC: MTLAB 11:04
PROVIDERS: PCP Internal Medicine; Referring Provider Internal Medicine Nephrology; Visit Provider Internal Medicine Nephrology
DX: E55.9 Vitamin D deficiency, unspecified (principal); I70.1 Atherosclerosis of renal artery; I10 Essential (primary) hypertension
CPT/HCPCS: 36415; 80069; 82043; 82306; 82570; 83735

== ENCOUNTER → 2022-12-05 | Outpatient (CLI) | payer MEDICARE, BC, SELFPAY ==
[2022-12-05 18:27] LABS: Thyroid Stim Hormone (TSH) 2.45 uIU/mL (0.358-3.74)
[2022-12-05 18:29] LABS: Vitamin D,25 Hydroxy 50.4 ng/mL
== END | disposition home or self-care (01) ==
LOC: MTLAB 14:14
PROVIDERS: PCP Internal Medicine; Visit Provider Internal Medicine
DX: F32.A Depression, unspecified (principal); E55.9 Vitamin D deficiency, unspecified
CPT/HCPCS: 36415; 82306; 84443

== ENCOUNTER 2023-03-12 12:00 | Outpatient (RCR) | payer MEDICARE, BC, SELFPAY ==
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
--- NOTE | 2023-07-03 09:55 | HP.PT.NRP ---
Patient Information Patient Information: JOSHUA MONTEZ was seen in my office for initial evaluation on 03/03/23. The following Plan of Care was established for this patient: POC Established Initial Frequency: 2-3x /Week Initial Duration: 4-6 Weeks Anticipated Interventions Patient/Client Instruction: Educate patient on: Condition, Plan of Care and Risk Factors For the Purpose of:: To improve self management Therapeutic Exercise to Include: Strength training, Body mechanics, Postural training, Flexibilty training, Neuromotor development, In an aquatic setting and Dynamic Lumbar Stabilization For the Purpose of:: To decrease pain, To increase ROM, To improve muscle performance and motor function, To increase tolerance to activity/condition/position and To improve ability of physical actions for home/community/work/leisure Last Seen Last Seen: This patient was last seen in our office 03/12/23. Pertinent comments regarding their Physical therapy will appear below: At this point I will be discontinuing this patient from physical therapy. I would be happy to see this patient again in the future if found appropriate by the physician. Thank you! Suni Botello, PT, Cert MDT Balance/Gait/Functional tests Balance/Special Test Scores Oswestry Low Back Score: 17
== END 2023-03-12 19:00 | disposition home or self-care (01) ==
LOC: PT 12:00
PROVIDERS: PCP Internal Medicine; Referring Provider Nurse Practitioner Family; Visit Provider Nurse Practitioner Family
DX: M54.50 Low back pain, unspecified (principal)
CPT/HCPCS: 97110; 97112; 97162

== ENCOUNTER → 2023-03-26 | Outpatient (CLI) | payer MEDICARE, BC, SELFPAY ==
--- NOTE | 2023-03-26 16:09 | MRI_ITS ---
STUDY: MRI LUMBAR SPINE WITHOUT CONTRAST REASON FOR EXAM: Female, 78 years old. low back pain INTO L LEG TECHNIQUE: Standardized fat and water weighted pulse sequences were obtained in the sagittal and axial planes. COMPARISON: X-ray 03/11/2018 FINDINGS: T12-L1: Normal endplates. Normal disc height, hydration and morphology. Normal bilateral facet joints. Normal central canal and bilateral lateral recesses. Normal bilateral intervertebral neural foramina. Normal lumbar lordosis. Mild levoscoliosis centered at L2/L3. Normal conus medullaris that terminates at the L1/L2. L1-2: Disc desiccation but no disc protrusion, spinal stenosis, or neural foraminal stenosis. L2-3: Mild bilateral facet hypertrophy and ligament flavum hypertrophy. 2 mm retrolisthesis of L2 on L3 with a mild bilobed disc protrusion produces moderate spinal stenosis and moderate bilateral neural foraminal stenosis. Associated Modic type II endplate changes. L3-4: Disc desiccation but no disc protrusion, spinal stenosis, or neural foraminal stenosis. L4-5: Mild bilateral facet hypertrophy and ligament flavum hypertrophy. Mild broad disc protrusion produces mild spinal stenosis and mild bilateral neural foraminal stenosis. L5-S1: Severe bilateral facet hypertrophy and moderate ligament flavum hypertrophy. 5 mm of anterolisthesis of L5 on S1 with a mild broad disc protrusion produces mild spinal stenosis and moderate bilateral neural foraminal stenosis. Nondisplaced fracture through the superior aspect of the S2 segment of the sacrum. Normal visualized paraspinous soft tissue structures. MRI/Spine Lumbar (Routine) IMPRESSION: 1. Sacral fracture the level of S2. 2. Mild levoscoliosis and degenerative disc disease as described above. Electronically Signed: Med Perez MD at 22:10 EST ,
== END | disposition home or self-care (01) ==
LOC: MRI 16:05
PROVIDERS: PCP Internal Medicine; Referring Provider Internal Medicine; Visit Provider Internal Medicine
DX: M54.50 Low back pain, unspecified (principal)
CPT/HCPCS: 72148

== ENCOUNTER 2023-03-29 13:45 | Emergency (ER) | payer MEDICARE, BC, SELFPAY ==
[2023-03-29 13:50] VITALS: BP 133/87; PULSE 82; RESP 18; TEMP 36.3; O2SAT 96
[2023-03-29 16:54] VITALS: BP 121/73; PULSE 75; RESP 16
--- NOTE | 2023-03-29 16:57 | EDS_ITS ---
HPI History of Present Illness Chief Complaint: Lower Extremity Injury Narrative Narrative: 78-year-old female past medical history of chronic left hip pain, states she has had it for at least a month, presents to the emergency department for pain control. She states that she had an MRI performed of her lumbar spine on Friday and was diagnosed with a sacral fracture and degenerative changes of her spine. She denies any fevers or chills, no loss of bowel or bladder, no new or worsening symptoms, and states that she was informed of the findings of her MRI on evening and they referred her to Dr. Rahman, the spine surgeon, but she cannot see him for at least a few weeks. She does not want to take anything strong for pain, so her primary care provider, Dr. Rojas, put her on anti-inflammatories, muscle relaxers, and now gabapentin. She is having increasing pain in the sacral area and in her left hip as well. She denies any loss of bowel or bladder. She presents mainly for a different medication for pain control. She has been able to ambulate, and take care of her 2 large dogs as well. [facility] Medical History Back pain Bulging disc HTN (hypertension) Limb weakness Sacral fracture Home Medications bupropion HCl 75 mg tablet 75 mg PO BID 02/04/18 [History Last Taken Unknown] calcium carbonate 500 mg calcium (1,250 mg) tablet (Calcium 500) 500 mg PO BID 02/04/18 [History Last Taken Unknown] cholecalciferol (vitamin D3) 25 mcg (1,000 unit) capsule 1,000 unit PO DAILY 02/04/18 [History Last Taken Unknown] [id number] 250 mg-250 mg-120 mg tab tab PO 02/04/18 [History Last Taken Unknown] dexlansoprazole 30 mg capsule,biphase delayed release (Dexilant) 30 mg PO DAILY 02/04/18 [History Last Taken Unknown] losartan 100 mg tablet 100 mg PO DAILY 02/04/18 [History Last Taken Unknown] verapamil 40 mg tablet 40 mg PO BID 02/04/18 [History Last Taken Unknown] tramadol 50 mg tablet 50 mg PO Q6H PRN pain #12 tabs 03/29/23 [Rx Last Taken Unknown] Allergy/AdvReac Type Severity Reaction Status Date / Time Penicillins Allergy Unknown Verified 03/29/23 13:50 Family History Mother Cancer lung Alcohol abuse Father Alcohol abuse Pancreatitis Diabetes Sister Multiple sclerosis Grandfather Heart disease Cancer throat Grandmother Hypertension Surgical History History of cataract surgery History of tubal ligation Social History Smoking Status: Never smoker alcohol intake: current alcohol intake frequency: 3 or more drinks per day Alcohol type: wine ROS ROS ED ROS Narrative Constitutional: No fever, no chills. HEENT: No sore throat. No neck pain. No loss of vision. No rhinorrhea. Cardiovascular: No chest pain. No palpitations. No pedal edema. Respiratory: No cough, no shortness of breath. Abdominal: No abdominal pain. No nausea. No vomiting. Genitourinary: No dysuria. No hematuria. Musculoskeletal: No myalgias. Left hip pain. Low back pain. Neurologic: No headaches. No dizziness. No lightheadedness. No saddle anesthesia, no loss of bowel or bladder. Skin: No rash. No change in color. Psychiatric: No depression. No anxiety. EXAM Physical Exam Narrative Exam Narrative: Afebrile. Vital signs noted. HEENT: Normocephalic. Atraumatic. PERRL, EOMI. Neck soft and supple. No point tenderness or step off. Cardiovascular: Regular rate and rhythm. No murmurs, rubs, or gallops appreciated. Respiratory: No tachypnea. Lungs clear to auscultation bilaterally. Gastrointestinal: Abdomen soft, nontender, with normoactive bowel sounds. No rebound or guarding. Neurological: Awake. Alert. Nonfocal, nonlateralizing. Skin: No rash. Normal color. No pallor. Musculoskeletal: No pedal edema. Full range of motion extremities. Flexion and extension of left hip and left knee intact. EHL intact bilaterally. DTRs equal and symmetric, patellar. Palpable dorsalis pedis pulses bilaterally. Const Vital Signs: 03/29/23 13:50 03/29/23 16:54 Temperature 97.3 F L Temperature Source Temporal Pulse Rate 82 75 Respiratory Rate 18 16 Blood Pressure 133/87 H 121/73 H Blood Pressure Mean 102 89 Pulse Ox 96 Oxygen Delivery Method Room Air Room Air MDM MDM MDM Narrative Medical decision making narrative: I reviewed the patient's outpatient MRI. She does have a sacral fracture that they report at the level of S2 . She does have degenerative changes of her spine with bulging disks. At this point in time, I have no concern for cauda equina. She states she is managing well at home and is able to take care of herself, but she wants something stronger to help alleviate her pain. I discussed with her the use of opiates and she declined. It was agreed on that she would try tramadol. She was given 1 dose of 50 mg here in the emergency department and a prescription written for 12 tablets for the next 3 days. She will call her primary care provider for further analgesics on Friday, 2 days from now. I feel she can be discharged safely home with follow-up. She does not want to be admitted for placement, and states that she is managing well at home and able to ambulate and even drive. Disposition is discharged home in stable condition. Return instructions were reviewed. History & Record Review Discussion w/independent historian: Patient Additional record(s) reviewed:: Prior outpatient record Discharge Plan Triage Chief Complaint: Lower Extremity Injury ED Provider: Pillo Senior Dx/Rx/DC Orders Clinical Impression: Left hip pain, Sacral fracture, closed Instructions: ED Arthralgia, ED Pelvic Fracture Prescriptions: New tramadol 50 mg tablet 50 mg PO Q6H PRN (Reason: pain) Qty: 12 0RF No Action losartan 100 mg tablet 100 mg PO DAILY Dexilant 30 mg capsule,biphase delayed releas 30 mg PO DAILY verapamil 40 mg tablet 40 mg tablet 40 mg PO BID bupropion HCl 75 mg tablet 75 mg PO BID calcium carbonate [Calcium 500] 500 mg calcium (1,250 mg) tablet 500 mg PO BID cholecalciferol (vitamin D3) 1,000 unit capsule 1,000 unit PO DAILY [id number] 250 mg-250 mg-120 mg tab 250-250-120 mg tablet PO Primary Care Provider: Jailene Aguilar Referrals: Ash Rahman DO [Med Staff - Active Staff] - As soon as possible Jeff,Jailene, DO [Primary Care Provider] - 3-5 Days Disposition Disposition: Home, Self Care
[2023-03-29] MEDS: traMADol 50 MG Tablet PO (17:02)
--- OUTSIDE RECORDS SUMMARY | 2023-03-29 17:11 | XMS RPT_ITS | CCD ---
Author Name Unknown Address [address] [place] [address] Organization [facility] Care Team Providers Care Project Intern Name Role Phone Jailene Aguilar Unavailable Kang Quintana Unavailable Yolanda Shah Unavailable Unavailable Unavailable Unavailable Gertrude Driscoll Unavailable Shirlene Madera Unavailable Zeferino Davis Unavailable Gravius, Emily Unavailable Unavailable Eveline Aguilareen Unavailable Kang Quintana Unavailable Gertrude Driscoll Unavailable Shirlene Madera Unavailable Zeferino Davis Unavailable Gravius, Emily Unavailable Unavailable Unavailable Unavailable Ash Welch Unavailable Dilan Strong Unavailable Unavailable Yolanda Shah Unavailable Unavailable Papo Dorado Unavailable Gravius, Emily Unavailable Unavailable Lauren Marshall Unavailable Unavailable [facility], [facility] Unavailable Michele Lisa Unavailable Lucas Buenrostro Unavailable Dilan Strong Unavailable Unavailable Becka Velasquez Unavailable Patricia Beal Unavailable Unavailable Becka Danielson Unavailable Shirlene Madera Unavailable Krista Botello Unavailable Unavailable Slarb, Estefania Unavailable Unavailable Tan[facility] - Boyd, Cali Unavailable Jailene Aguilar DO Unavailable Ash Welch MD Unavailable Becka Danielson Unavailable [facility], [facility] Unavailable Michele Lisa Unavailable Porter PEDRAZA, Lucas Griffith Unavailable [facility] - Boyd, Cali Unavailable Dr. Kang Quintana Unavailable Gertrude Driscoll Unavailable Shirlene Madera Unavailable Dr. Zeferino Davis Unavailable Papo Dorado Unavailable Ayan GONZALEZ, Krista Unavailable Unavailable Gravius STRAWHAT INSPECTOR AND PACKER, Emily Unavailable Unavailable Slarb PREVENTIVE MEDICINE SPECIALIST, Estefania Unavailable Unavailable Unavailable Unavailable Sibilia, Josias Unavailable Jailene Aguilar DO Unavailable Ashley Marie MA Unavailable Unavailable Emigdio PREVENTIVE MEDICINE SPECIALIST, Patricia Unavailable Unavailable [place] STRAWHAT INSPECTOR AND PACKER, Kayela Unavailable Unavailable Horn, Gissel Katlin Unavailable [phone] Manbasim STRAWHAT INSPECTOR AND PACKER, Mary Unavailable Unavailable Jailene Aguilar DO Attending Unavailable Jailene Aguilar DO Consulting Unavailable Jailene Aguilar DO Referring Unavailable Physical [facility], [facility] Unavailable Becka Suazo Unavailable SeeBryant song DO Unavailable Allergies Allergy Classification Reported Allergen(s) Allergy Type Date of Onset Reaction(s) Facility Penicillins (antibiotic) (7 sources) Penicillins; Translations: [Penicillins] Drug Allergy [facility] Work Phone: Medications Completed/Discontinued Medications Medication Drug Class(es) Dates Sig (Normalized) Sig (Original) aspirin 81 mg delayed release oral tablet (20 sources) Platelet Aggregation Inhibitor, Nonsteroidal Anti-inflammatory Drug take 1 tablet by mouth once daily Aspirin 81 MG Oral Tablet Delayed Release 1 qd (81 MG) Inactive azithromycin 250 mg oral tablet (20 sources) Macrolide Antimicrobial Start: 08-16-2021 End: 12-31-2021 take 1 tablet by mouth once daily Zithromax Z-Christiano 250 MG Oral Tablet tad Tablet qd for 0 days Quantity: 1 {Unspecified} Refills: 0 Ordered: 31-Dec-2021 Emily Zuniga CMA Start : 16-Aug-2021 End : 31-Dec-2021 Inactive Comments: dispense one pack Problems Active Problems Problem Classification Problem Date Documented Da te Episodic/Chronic Administrative/social admission (20 sources) Patient encounter status; Translations: [Nutritional counseling] 06-29-2020 Episodic Blindness and vision defects (20 sources) Sees flashes; Translations: [Flashing lights] Resolved: 07-21-2019 08-24-2018 Episodic Chronic obstructive pulmonary disease and bronchiectasis (20 sources) Bronchitis; Translations: [Bronchitis] 08-24-2018 Episodic Conditions associated with dizziness or vertigo (20 sources) Benign paroxysmal positional vertigo; Translations: [BPV (benign positional vertigo), right] 01-22-2019 Episodic Past or Other Problems Problem Classification Problem Date Documented Da te Episodic/Chronic Conditions associated with dizziness or vertigo (20 sources) Conditions associated with dizziness or vertigo Esophageal disorders (12 sources) Esophageal disorders External cause codes: Fall (20 sources) Accidental fall ; Translations: [Accidental fall, initial encounter] Resolved: 06-09-2019 05-01-2018 Headache; including migraine (20 sources) Headache; including migraine Hepatitis (10 sources) Hepatitis Mood disorders (20 sources) Mood disorders Other ear and sense organ disorders (20 sources) Impacted cerumen in right ear; Translations: [Impacted cerumen of right ear] 10-11-2019 Other nutritional; endocrine; and metabolic disorders (20 sources) Body mass index 25-29 - overweight; Translations: [BMI 28.0-28.9,adult] Resolved: 12-08-2019 10-11-2019 Chronic Otitis media and related conditions (20 sources) Dysfunction of bilateral eustachian tubes; Translations: [Eustachian tube dysfunction, bilateral] Resolved: 06-09-2019 10-11-2019 Pneumonia (except that caused by tuberculosis or sexually transmitted disease) (20 sources) Pneumonia (except that caused by tuberculosis or sexually transmitted disease) Residual codes; unclassified (20 sources) Requires vaccination; Translations: [Need for pneumococcal vaccination] 11-18-2019 Retinal detachments; defects; vascular occlusion; and retinopathy (20 sources) Detachment of retina of right eye; Translations: [Retinal detachment, right] 08-24-2018 Unclassified (20 sources) Patient encounter status; Translations: [Annual Medicare Phyiscal WITHOUT abnormal findings (Renamed from Encounter for general adult medical examination without abnormal findings)] 04-02-2018 Results Test Name Value Interpretation Reference Range Facil ity Vital Signs Date Time Vital Sign Value Performing Clinician Facility 12-04-2022 16:090400 Body height 158.75 cm Patricia Beal LPN [facility] Work Phone: 12-04-2022 16:09-0400 Body mass index (BMI) [Ratio] 32.67 kg/m2 Patricia Beal LPN [facility] Work Phone: 12-04-2022 16:09-0400 Body surface area Derived from formula 1.85 m2 Patricia Beal LPN [facility] Work Phone: 12-04-2022 16:09-0400 Body temperature 97.9 [degF] Patricia Beal LPN [facility] Work Phone: 12-04-2022 16:09-0400 Body weight 82.33 kg Patricia Beal LPN [facility] Work Phone: 12-04-2022 16:09-0400 Diastolic blood pressure 80 mm[Hg] Patricia Beal LPN [facility] Work Phone: Encounters Encounter Date Encounter Type Care Provider Facility Start: 12-04-2022 End: 12-04-2022 Office outpatient visit 15 minutes Jailene Aguilar DO Work Phone: [facility] Start: 08-12-2022 End: 08-14-2022 Office outpatient visit 25 minutes Jailene Jeff DO Work Phone: [facility] Start: 05-23-2022 End: 05-23-2022 Office outpatient visit 15 minutes Jailene Jeff DO Work Phone: [facility] Start: 05-23-2022 Review Jailene Fearo n DO Work Phone: [facility] Start: 05-17-2022 ambulatory Jailene Jeff DO [facility] Start: 05-17-2022 End: 05-17-2022 Office outpatient visit 15 minutes Jailene Jeff DO Work Phone: [facility] Start: 02-11-2022 End: 02-11-2022 Patient encounter procedure Jailene Jeff DO Work Phone: [facility] Start: 02-11-2022 End: 02-11-2022 Periodic preventive med est patient 65yrs& older Jailene Jeff DO Work Phone: [facility] Start: 02-11-2022 Patient encounter procedure Andra Washington CMA [facility] Start: 02-11-2022 Review Jailene Fearo n DO Work Phone: [facility] Start: 12-31-2021 End: 12-31-2021 Phone Encounter Jailene Jeff DO Work Phone: [facility] Start: 11-07-2021 End: 11-07-2021 Annotation/Addendum Jailene Jeff DO Work Phone: [facility] Start: 11-07-2021 End: 11-07-2021 Office outpatient visit 15 minutes Jailene Jeff DO Work Phone: [facility] Start: 08-16-2021 End: 08-16-2021 Office outpatient visit 10 minutes Jailene Jeff DO Work Phone: [facility] Start: 06-11-2021 End: 06-11-2021 Office outpatient visit 15 minutes Jailene Jeff DO Work Phone: [facility] Start: 05-16-2021 End: 02-23-2022 Office outpatient visit 15 minutes Jailene Jeff DO Work Phone: [facility] Start: 04-24-2021 End: 04-24-2021 Annotation/Addendum Jailene Jeff DO Work Phone: [facility] Start: 01-29-2021 End: 01-29-2021 Patient encounter procedure Estefania Johnson PREVENTIVE MEDICINE SPECIALIST [facility] Work Phone: Start: 01-29-2021 End: 01-29-2021 Periodic preventive med est patient 65yrs& older Jailene Jeff DO Work Phone: [facility] Start: 12-11-2020 End: 12-11-2020 Office outpatient visit 25 minutes Jailene Jeff DO Work Phone: [facility] Start: 08-31-2020 End: 09-01-2020 Office outpatient visit 15 minutes Jailene Jeff DO Work Phone: [facility] Start: 08-10-2020 End: 08-10-2020 Office outpatient visit 15 minutes Jailene Jeff DO Work Phone: [facility] Start: 08-10-2020 Review Jailene Fearo n DO Work Phone: [facility] Start: 07-20-2020 End: 07-20-2020 Office outpatient visit 10 minutes Jailene Jeff DO Work Phone: [facility] Start: 07-20-2020 Review Jailene Fearo n DO Work Phone: [facility] Start: 06-29-2020 End: 06-29-2020 Office outpatient visit 25 minutes Jailene Jeff [facility] Start: 06-29-2020 Review Jailene Jeff [facility] Start: 06-15-2020 End: 06-15-2020 Annotation/Addendum Jailene Jeff [facility] [facility] Start: 06-07-2020 End: 06-07-2020 Office outpatient visit 25 minutes Jailene Jeff [facility] Start: 05-24-2020 End: 05-24-2020 Office outpatient visit 10 minutes Jailene Jeff [facility] Start: 05-24-2020 Review Jailene Aguilar [facility] Start: 05-23-2020 End: 05-24-2020 Office outpatient visit 10 minutes Jailene Vasques [facility] Start: 05-23-2020 Review Jailene Aguilar [facility] Start: 03-08-2020 End: 03-08-2020 Office outpatient visit 25 minutes Jailene Vasques [facility] Start: 12-23-2019 End: 12-23-2019 Patient encounter procedure Krista Botello LPN [facility] Work Phone: Start: 12-23-2019 End: 12-23-2019 Periodic preventive med est patient 65yrs& older Jailene Vasques [facility] Start: 12-23-2019 Review Jailene Aguilar [facility] Start: 12-08-2019 End: 12-08-2019 Office outpatient visit 25 minutes Jailene Vasques [facility] Start: 11-18-2019 End: 11-18-2019 Office outpatient visit 5 minutes Jailene Vasques [facility] Start: 10-11-2019 End: 10-11-2019 Office outpatient visit 15 minutes Jailene Vasques [facility] Start: 07-21-2019 End: 07-21-2019 Office outpatient visit 10 minutes Jailene Vasques [facility] Start: 06-09-2019 End: 06-09-2019 Office outpatient visit 40 minutes Jailene Vasques [facility] Start: 05-31-2019 End: 05-31-2019 Phone Encounter Jailene Vasques [employer] [facility] Start: 03-26-2019 End: 03-26-2019 Office outpatient visit 15 minutes Jailene Vasques [facility] Start: 01-22-2019 End: 01-22-2019 Office outpatient visit 15 minutes Jailene Vasques [facility] Start: 08-24-2018 End: 08-24-2018 Office outpatient visit 15 minutes Jailene Vasques [facility] Start: 07-13-2018 End: 07-13-2018 Office outpatient visit 15 minutes Jailene Vasques [facility] Start: 07-03-2018 End: 07-03-2018 Phone Encounter Jailene Vasques [employer] [facility] Start: 05-21-2018 End: 05-21-2018 Office outpatient visit 10 minutes Jailene Jeff [facility] Start: 05-01-2018 End: 05-01-2018 Office outpatient visit 15 minutes Jailene Aguilar [facility] Start: 04-02-2018 End: 04-02-2018 Patient encounter procedure Jailene Aguilar DO Work Phone: [facility] Start: 04-02-2018 End: 04-02-2018 Periodic preventive med est patient 65yrs& older Jailenejuan jose Aguilar [facility] Start: 03-20-2018 End: 03-20-2018 Office outpatient visit 15 minutes Jailene Jeff [facility] Start: 02-23-2018 End: 02-23-2018 Office outpatient new 30 minutes Jailene Aguilar [facility] Patient encounter procedure Krista Botello [facility] Work Phone: Patient encounter procedure Krista Botello [facility] Work Phone: Patient encounter procedure Krista Botello [facility] Work Phone: Patient encounter procedure Kristarito Botello [facility] Work Phone: Patient encounter procedure Emily Gravius [facility] Work Phone: Patient encounter procedure Emily Gravius [facility] Work Phone: Patient encounter procedure Ashley Marie MA [facility] Work Phone: Patient encounter procedure Patricia Beal PREVENTIVE MEDICINE SPECIALIST [facility] Work Phone: Patient encounter procedure Jailene Aguilar DO Work Phone: [facility] Work Phone: Patient encounter procedure Andra Washington [facility] Work Phone: Patient encounter procedure Andra Washington [facility] Work Phone: Patient encounter procedure Estefania Johnson [facility] Work Phone: Patient encounter procedure Patricia Beal [facility] Work Phone: Procedures Date Procedure Procedure Detail Performing Clinician Start: 07-11-2022 End: 07-11-2022 PT D/C Summary (1) Procedure Note: See Note; NOTES: [facility] [address] [place] [address] / REHABILITATION SERVICES DISCHARGE SUMMARY MR#: [id number] Acct: [id number] Name: TIFFANY MONTEZ Rep #: [id number] : 1945 77 From: Bryant Pro DPT, OCS, CSCS Referring Dr.: Jailene Aguilar DO Status: REG R CR Insurance: MEDICARE PART A B ANTHEM It has been my pleasure to treat TIFFANY MONTEZ referred by Jailene Aguilar DO, with the diagnosis of unstable balance, abnormal gait for a total of 10 visit(s). Discharge Date: 07/11/22 Please see the following information for a summary of their discharge status. Subjective: Overall pretty good. Exercises at home are helping with balance. After her workout Friday felt much better. Balance is improving. No f/u with doctor. Will come in 3x/week. % Improvement: 90 Objective/Function: FGA is +2 overall and above average for age. Feels like she is doing wella nd can continue to do ex as member 3x.week. Goal 1:: I approp HEP for vestibular balance challenges, VOR and weight shifts as needed. Goal Progress: Goal Met Goal 2:: Biodex balance testing Goal Progress: Goal Met Goal 3:: Patient feel 50% better in overall balance. Goal Progress: Goal Met Goal 4:: I machine based LE strength Goal Progress: Goal Met Plan: d/c If there are questions or concerns regarding this patient's physical therapy, please feel free to call me at [phone]. Thank you for the referral of this patient. Sincerely, Bryant Pro DPT, OCS, CSCS Balance/Gait/Functional tests - Balance/Special Test Scores Functional Gait Assessment Score: 28 % Disability: 6.6700 CATSIB Score (Max score 120 seconds): 96 Lower Extremity Functional Score: 72 TUG Test Time Seconds: 8 Tug Test: <10 sec.=free mobile 30 Second Chair Rise Test Seconds: 16 <Electronically signed by Bryant Pro DPT, OCS, CSCS> 07/11/22 1245 CC: Dr. Jailene Aguilar DO; Jailene Aguilar DO EBG Signed Jailene Aguilar DO Work Phone: Start: 06-27-2022 End: 06-27-2022 Re-Evaluation - PT (1) Procedure Note: See Note; NOTES: [facility] [address] [place] [address] / REEVALUATION / MEDICARE RECERTIFICATION PHYSICAL THERAPY MR#: [id number] Acct: [id number] Name: TIFFANY MONTEZ Rep #: [id number] : 1945 77 From: Bryant Pro DPT, OCS, CSCS Referring Dr.: Jailene Aguilar DO Status:REG RCR Insurance: MEDICARE PART A B SIGIFREDO Aguilar DO, It has been my pleasure to treat TIFFANY MONTEZ over the last 6 visits for unstable balance, abnormal gait. Please see the progress note below for an update on the physical therapy plan of care! Subjective: Feels like it is helping, has a ways to go. Feeling a little more confident. Muscles in legs feeling stronger. Doing balance stuff at home. Strengthening going well. Will join and continue on. Feels like needs more instruction for comfort with machines. Objective/Function: FGa about the same, feels more confident and can continue baance on her own but not able and I yet with machine based strength. Will add this to plan with fair prognosis. Plan Plan: 2x/weeek for 2 weeks to gain I with machine based strength for memebership. Please do lleg press, hip abd, knee ext/flexion, glut ham, pull down, shoulder press and row and give list for I member when able. Pt to do balance ex on own and ask questions if needed. Balance/Gait/Functional tests - Balance/Special Test Scores Functional Gait Assessment Score: 25 % Disability: 16.6700 CATSIB Score (Max score 120 seconds): 96 Lower Extremity Functional Score: 59 TUG Test Time Seconds: 8 Tug Test: <10 sec.=free mobile 30 Second Chair Rise Test Seconds: 16 Goals Goal 1:: I approp HEP for vestibular balance challenges, VOR and weight shifts as needed. Goal Time Frame: 2-4 Weeks Goal Progress: Goal Met Goal 2:: Biodex balance testing Goal Time Frame: 2 Weeks Goal Progress: Goal Met Goal 3:: Patient feel 50% better in overall balance. Goal Time Frame: 2-4 Weeks Goal Progress: Goal Met Goal 4:: I machine based LE strength Goal Time Frame: 2-4 Weeks Goal Progress: NEW GOAL Anticipated Interventions Patient/Client Instruction: Educate patient on: Condition, Plan of Care For the Purpose of:: To increase tolerance to activity/condition/position , To improve ability of physical actions for home/community/work/leisure Therapeutic Exercise to Include: Balance training, Gait and locomotor training For the Purpose of:: To improve muscle performance and motor function, To improve ability of physical actions for home/community/work/leisure , To improve gait and locomotor functions Please do not hesitate to contact me at [phone] by phone or if you have questions or concerns regarding this new plan of care! Sincerely, Bryant Pro DPT, OCS, CSCS <Electronically signed by Bryant Pro DPT, OCS, CSCS> 06/27/22 1321 CC: Dr. Jailene Aguilar, DO; Jailene Aguilar DO EBG Signed For Medicare only, by signing this I certify the plan of care. _ Physicians Signature Date Jailene Aguilar DO Work Phone: Start: 06-11-2022 End: 06-11-2022 PT Communication Procedure Note: See Note; NOTES: [facility] [address] [place] [address] Fax REHABILITATION SERVICES PROGRESS NOTE MR#: [id number] Acct: [id number] Name: TIFFANY MONTEZ Rep #: [id number] : 1945 77 From: Bryant Pro DPT, KALLI, CSCS Referring : Jailene Aguilar DO Status:REG RCR Insurance: MEDICARE PART A B ANTHEM PT Communication Note 06/11/[address] Jailene Aguilar, , Thank you for the referral of Tiffany to [facility] for balance assessment. i have enclosed a copy of the results for your review. In summation, she scored low on the weight shifts in Limits of Stability test in all directions. she score low on Modified CTSIB particularly in eyes closed and firm ground. With these results in mind, I plan to work with her on an exercise regimen to address balance deficits and strength that she will be able to continue senior living as a member here at [facility]. Please do not hesitate to contact me if there are questions regarding her plan of care. Sincerely, Bryant Pro DPT, KALLI, CSCS Contact Information 06/11/22 1240 <Electronically signed by Bryant Pro DPT, KALLI, CSC S> Date Bryant Pro DPT, KALLI, CSCS Cosigner Signature (if applicable): Date CC: Dr. Jailene Aguilar, ; Jailene Aguilar DO Signed For Medicare only, by signing this I certify the plan of care. _ Physicians Signature Date Jailene Aguilar DO Work Phone: Start: 06-06-2022 End: 06-06-2022 Brain without Contrast Procedure Note: See Note; NOTES: [facility] [address] [place] [address] Brain without Contrast MR#: [id number] Acct: [id number] Name: TIFFANY MONTEZ Rep #: [id number] : 1945 F 77 From: Boom Teresa PCP: Dr. Jailene Aguilar DO Status: REG CLI Study: Brain without Contrast Date of Exam: 06/06/22 Exam# [id number] Ordering Dr: Jailene Aguilar DO EXAM: MR HEAD WITHOUT INTRAVENOUS CONTRAST CLINICAL INDICATION: ATAXIA;UNSTABLE BALANCE approx 2 yrs TECHNIQUE: Multiplanar and multisequence MR images of the brain were obtained without intravenous contrast. This report was created using Bug[employer] report generation technology. COMPARISON: None. FINDINGS: BRAIN AND EXTRA-AXIAL SPACES: Unremarkable. No intra- or extra-axial hemorrhage. No evidence of acute infarct. No intracranial mass or mass effect. There is preservation of the del angel/white matter interface. Posterior fossa structures are unremarkable. Ventricles are appropriate for age. No hydrocephalus. Basal cisterns are patent. SELLA: Unremarkable. Normal sella turcica, pituitary gland, infundibular stalk, optic chiasm and hypothalamus. AUDITORY SYSTEM: Unremarkable. The internal auditory canals are patent. BONES/JOINTS: Unremarkable. No discrete lytic or blastic abnormalities. SINUSES: Unremarkable as visualized. Clear. MASTOID AIR CELLS: Unremarkable as visualized. Clear. ORBITS: Unremarkable as visualized. Both globes, extraocular muscles, optic nerves and retrobulbar fat appear unremarkable. VASCULATURE: Unremarkable as visualized. Normal flow voids in the major intracranial circulation. MRI/Brain without Contrast IMPRESSION: Negative MRI brain without intravenous contrast. Electronically Signed: Boom Machuca MD at 14:36 EDT , CC: Dr. Jailene Aguilar DO Care Tech: Signed Jailene Aguilar DO Work Phone: Start: 06-04-2022 End: 06-04-2022 Inital Evaluation (1) - PT Procedure Note: See Note; NOTES: [facility] [address] [place] [address] / REHABILITATION SERVICES INITIAL EVALUATION MR#: [id number] Acct: [id number] Name: TIFFANY MONTEZ Rep #: [id number] : 1945 77 From: Bryant Pro DPT, OCS, CSCS Referring Dr.: Jailene Aguilar DO Status: REG R CR Insurance: MEDICARE PART A B ANTHEM Patient's Visit Information TIFFANY MONTEZ is a 77 year old F referred to Physical Therapy by Jailene Aguilar DO with a diagnosis of unstable balance, abnormal gait. Date of Evaluation: 06/04/22 Physical Therapist: Bryant Pro DPT, OCS, CSCS - Visit Plan Frequency: 2x /Week Duration: 4-6 Weeks Plan: Biodex balance tests, then 2x/week for 2-4 weeks to teach exercises per results...likely emphasis on VOR, foam, large steps and weight shifting. - Subjective Having trouble with balance that is concerning. Feels off kilter in am. No falls or LOB but feels off kilter and like walking slow and careful. No problems the rest of the day. Carrying two items in [employer] Yesterday and felt unsteady. Has been gradually getting here for some time/last 3 years. Activities are pretty normal. Sleep is OK. Sometimes shoulder pain R as she has a bad tendon.Takes baby steps in small spaces in am. No nueropathy, no recent spinning. Not employed. Spends day reading, watching TV, running errands. Hobbies include reading and taking care of big dogs, no walking. No regualr exercises outside of walking 1 mile 5 days per week. - Objective VOR walking gives short and choppier steps but able. Walks into PT I , trasnfer chair and bed I. steps reciprocal with on rail. UE adn LE AROM WFL, has s ome tightness in B HS. 2/3 B patella and achilles reflexes without clonus. Sensation LE WNL to gross light touch. Strength hips 4/5, knees 4+ and ankles 4+. coordination to reciprocal toe and heel tap is good, heel to hannon test is good, reciprocal hand tap is good. - Balance/Special Test Scores Functional Gait Assessment Score: 26 % Disability: 13.3400 CATSIB Score (Max score 120 seconds): 96 Lower Extremity Functional Score: 74 TUG Test Time Seconds: 8 30 Second Chair Rise Test Seconds: 16 - Goals Goal 1:: I approp HEP for vestibular balance challenges, VOR and weight shifts as needed. Goal Time Frame: 2-4 Weeks Goal 2:: Biodex balance testing Goal Time Frame: 2 Weeks Goal 3:: Patient feel 50% better in overall balance. Goal Time Frame: 2-4 Weeks - Rehabilitation Potential Physical Therapy Diagnosis: Unsteady with vestibular challenges Rehabilitation Potential: Fair - Anticipated Interventions Patient/Client Instruction: Educate patient on: Condition, Plan of Care For the Purpose of:: To increase tolerance to activity/condition/position , To improve ability of physical actions for home/community/work/leisure Therapeutic Exercise to Include: Balance training, Gait and locomotor training For the Purpose of:: To improve muscle performance and motor function, To improve ability of physical actions for home/community/work/leisure , To improve gait and locomotor functions Thank you for the opportunity to evaluate your patient. For Medicare and Medicare HMO plans, please review the plan of care and approve it. It will need to be FAXED BACK to us at [phone] for Medicare purposes. For Medicare only, by signing this I certify the plan of care. Please let me know if there are questions or concerns regarding this plan of care. Physician Signature: Date: <Electronically signed by Bryant CHURCHT, OCS, CSCS> 06/04/22 1241 CC: Dr. Jailene Aguilar, DO; Jailene Aguilar DO EBG Signed Jailene Aguilar DO Work Phone: Start: 05-30-2022 End: 05-30-2022 SCRN MAMM (CAD)W/GERRY BILAT Procedure Note: See Note; NOTES: [facility] Imaging Services [address] [place] [address] SCRN MAMM (CAD)W/GERRY BILAT MR#: [id number] Acct: [id number] Name: TIFFANY MONTEZ Rep #: [id number] : 1945 F 77 From: Ross mills MD PCP: Dr. Jailene Aguilar, Status: [facility] Study: SCRN MAMM (CAD)W/GERRY BILAT Date of Exam: 12/14 Exam# [id number] Ordering Dr: Jailene Aguilar DO MAMMOGRAPHY - BILATERAL SCREENING REASON FOR EXAM: Female, 77 years old. Routine annual screening examination. PERTINENT HISTORY: Aunt with breast cancer. TECHNIQUE: Digital bilateral breast gerry (3D mammographic acquisition) in the CC and MLO projections. 2-D mediolateral oblique (MLO) and craniocaudad (CC) views of both breasts were obtained. CAD: Full Field Digital Mammography with Computer Added Detection was performed. COMPARISON: Comparison is made with prior study May 21, 2021 and March 27, 2020. FINDINGS: Breast Composition: There are scattered areas of fibroglandular density. There are no dominant masses or suspicious calcifications. Stable small benign-appearing bilateral axillary nodes. No other significant abnormalities are identified. There has been no significant change since the prior study. BI/SCRN MAMM (CAD)W/GERRY BILAT IMPRESSION: Stable bilateral screening mammogram. Yearly follow-up mammogram recommended. (A) ASSESSMENT CATEGORY: BIRADS Category 2: Benign. A letter regarding these results will be sent to the patient by the facility within 30 days. Approximately 10% of breast cancers are not detected by mammography. A normal mammogram should not delay biopsy of a clinically suspicious abnormality. [id number] Electronically Signed: Ross Marie MD at 11:06 EST , CC: Dr. Jailene Aguilar DO Care Tech: Signed Jailene Aguilar DO Work Phone: Start: 05-17-2022 End: 05-17-2022 Foot min 3 Views Procedure Note: See Note; NOTES: [facility] Radiology [address] [place] [address] Foot min 3 Views MR#: [id number] Acct: [id number] Name: TIFFANY MONTEZ Rep #: [id number] : 1945 F 77 From: Nakul Devine MD PCP: Dr. Jailene Aguilar DO Status: DEP AMB Study: Foot min 3 Views Date of Exam: 05/17/22 Exam# [id number] Ordering Dr: Jailene Aguilar DO INDICATION: PAIN EXAMINATION/TECHNIQUE: X-RAY - LEFT XR Foot Min 3 Views 3 VIEWS COMPARISON: None. FINDINGS: SOFT TISSUES: No soft tissue swelling or gas. No radiopaque foreign body. BONES/JOINTS: No acute fracture. Deformity from old healed fracture fifth metatarsal. Plantar calcaneal spur. Joint spaces anatomically maintained. No sclerotic or destructive changes observed. RAD/Foot min 3 Views IMPRESSION: No acute bony injury. Electronically Signed: Nakul Devine MD at 20:37 EST , CC: Dr. Jailene Aguilar DO Care Tech: Signed Jailene Aguilar DO Work Phone: Start: 11-07-2021 End: 11-07-2021 Virtual Office Visit Procedure Note: See Note; NOTES: [facility] [place] [address] OFFICE VISIT Date of Service: 11/07/21 MR#: [id number] Acct: [id number] Patient: TIFFANY MONTEZ Rep #: [id number] : 1945 Provider: JIMY Cochran Age/Sex: 76/F Location: [facility] Status: Signed Intake Vital Signs 05/22/21 10:54 11/07/21 11:58 Height 5 ft 2.25 in 5 ft 2.25 in Intake Visit Reasons: Monoclonal Antibody Referral Chief Complaint: Neck and back pain Allergies Penicillins Allergy (Verified 11/07/21 12:01) Unknown PFSH Medical History Back pain HTN (hypertension) Limb weakness Surgical History History of cataract surgery History of tubal ligation Family History Mother Cancer lung Alcohol abuse Father Alcohol abuse Pancreatitis Diabetes Sister Multiple sclerosis Grandfather Heart disease Cancer throat Grandmother Hypertension Social History Smoking Status: Never smoker alcohol intake: current alcohol intake frequency: 3 or more drinks per day Alcohol type: wine HPI HPI Chief Complaint: Neck and back pain Details: Patient was informed that this visit will be billed to patient. This visit was conducted during COVID-19 pandemic. TIFFANY MONTEZ, is a 76 F who participates in a telephone office visit for review of her COVID-19 symptoms. Statement read to the patient: This telehealth visit is being offered during our stay at home measures in response to the pandemic. It is subject to an office visit charge. The patient consents to continue. Symptom onset occurred: 11/04/21 Positive COVID-19 test occurred: 11/07/21 COVID vaccine administered: YES on oxygen or needed to titrate up? NO The FDA has authorized the emergency use of monoclonal antibody treatment for mild to moderate COVID-19 in adults and pediatric patients with positive results of direct SARS???Cov???2 viral testing ages 12 and older, at least 40 kg, who were not at high risk for progressing to severe COVID-19 and or hospitalization. The significant known and potential risks (allergic reactions or side effects from injection including brief pain, bleeding, bruising of the skin, soreness, swelling, possible infection at the infusion site) and benefits (decrease chance of progression to severe COVID-19) of a monoclonal antibody infusion, and the extent to which such potential risks and benefits are unknown. Patients treated with monoclonal antibody infusion should continue to self-isolate and use infection control measures (such as wear mask, isolate, social distance, avoid sharing personal items, clean and disinfect high touch surfaces, and frequent handwashing) according to the CDC guidelines. The fact sheet for patients, parents and caregivers will be provided prior to the administration of the medication. No drugs are approved by the FDA at this time to treat outpatients with mild or moderate symptoms of COVID-19. The following information was communicated to the patient or caregiver: Monoclonal antibody infusion is not an FDA approved drug. The FDA has authorized the emergency use of monoclonal antibody therapy. The patient had the option to refuse or accept treatment with monoclonal antibody therapy. The patient was informed that the number of people treated with monoclonal antibody therapy at this time is small. The potential benefits and the potential risks of monoclonal antibody therapy are not fully known. Potential benefits of monoclonal antibody include a reduced risk of progressing to severe COVID-19 infection. Potential risks or side effects of monoclonal antibody therapy include allergic reactions, side effects from injection including brief pain, bleeding, bruising of the skin, soreness, swelling, possible infection at the infusion site. The patient stated understanding of this information communicated and wished to proceed with monoclonal antibody infusion therapy. Current symptoms include: Sore throat, cough, malaise, fatigue, chills, headache. ROS Const Constitutional: Positive for chills, fatigue, headache(s) and malaise ENT ENT: Positive for headache(s) and sore throat Neuro Neurology: Positive for headache(s) Endo Endocrine: Positive for fatigue Coding Level of Care Code 5-10 minutes Diagnoses COVID-19 U07.1 Assessment and Plan Assessment and Plan (1) COVID-19: Status: Acute Plan: The patient states understanding of this information communicated and wishes to proceed with monoclonal antibody infusion therapy. Additionally, the patient understands that bebtelovimab is authorized for treatment of mild to moderate COVID-19 in patients for whom other COVID-19 treatment options approved or authorized by FDA are not available or clinically appropriate and agrees to receive bebtelovimab. Treatment with Paxlovid is not appropriate for this patient due to interaction with other medications. 11/07/21 3740 <Electronically signed by Gloria Cochran NP, NP-C> Date Gloria Cochran NP, NP-C Cosigner Signature: Date (if applicable) CC: Jailene Aguilar DO Work Phone: Start: 05-22-2021 End: 05-23-2021 Dexa Bone Density Study Comments: See Note; NOTES: [facility] Imaging Services [address] [place] [id number] Dexa Bone Density Study MR#: [id number] Acct: [id number] Name: TIFFANY MONTEZ Rep #: [id number] : 1945 F 76 From: Ross mills MD PCP: Dr. Jailene Aguilar DO Status: [facility] CLI Study: Dexa Bone Density Study Date of Exam: 05/22/21 Exam# [id number] Ordering Dr: Jailene Aguilar DO STUDY: DUAL ENERGY X-RAY ABSORPTIOMETRY / DXA REASON FOR EXAM: Female, 76 years old. N95.9. The patient is postmenopausal. TECHNIQUE: Bone Mineral Density (BMD) measurements of lumbar spine and bilateral hips were obtained. COMPARISON: Comparison is made with prior study done 01/05/2019. FINDINGS: Lumbar Spine (L1-L4): g/cm2 (0.847) / T-score (-1.7) / Z-score (0.7) Findings are suggestive of osteopenia with a moderate fracture risk. Left Femur Total: g/cm2 (0.916) / T-score (-0.2) / Z-score (1.6) Left Femoral Neck: g/cm2 (0.637) / T-score (-1.9) / Z-score (0.2) Right Femur Total: g/cm2 (0.893) / T-score (-0.4) / Z-score (1.4) Right Femoral Neck: g/cm2 (0.596) / T-score (-2.3) / Z-score (-0.2) The T-Scores on the most recent prior examination were: Lumbar Spine (L1-L4): There has been worsening of bone density since the previous examination. Left Femur Total: which represents an improvement of 4%. Right Femur Total: which represents an improvement of 2.9%. BD/Dexa Bone Density Study IMPRESSION: The patient is considered osteopenic as outlined below according to World Gil Organization (WHO) criteria with a high fracture risk. There has been improvement of bone density since the previous examination. Reference Information: The T-score is the number of standard deviations above or below the standard which is normal for young adults at their peak bone mineral density. The World Health Organization (WHO) interprets the T-scores as follows: Above -1 Normal bone density Between -1 and -2.5 Osteopenia Equal to / or below -2.5 Osteoporosis As a practical clinical guideline, osteopenia may be graded as follows: Mild -1 through -1.5 Moderate -1.6 through -2.0 Severe -2.1 through -2.4 The Z-score is the number of standard deviations above or below age-matched controls. A Z-score of less than -1.5 would be considered abnormal. References: 1. NIH Osteoporosis and Related Bone Diseases www osteo.org 2. International Society for Clinical Densitometry www iscd.org 3. National Osteoporosis Foundation www nof.org Electronically Signed: Ross Marie MD at 12:19 EST , CC: Dr. Jailene Aguilar DO Care Tech: Signed Jailene Aguilar DO Work Phone: Start: 05-21-2021 End: 05-21-2021 SCRN MAMM (CAD)W/GERRY BILAT Comments: See Note; NOTES: [facility] Imaging Services [address] [place] [address] SCRN MAMM (CAD)W/GERRY BILAT MR#: [id number] Acct: [id number] Name: TIFFANY MONTEZ Rep #: [id number] : 1945 F 76 From: Ross mills MD PCP: Dr. Jailene Aguilar DO Status: REG CLI Study: SCRN MAMM (CAD)W/GERRY BILAT Date of Exam: 04/25 11/12 Exam# [id number] Ordering Dr: Jailnee Aguilar DO MAMMOGRAPHY - BILATERAL SCREENING REASON FOR EXAM: Female, 76 years old. Routine annual screening examination. PERTINENT HISTORY: Aunt with breast cancer. TECHNIQUE: Digital bilateral breast gerry (3D mammographic acquisition) in the CC and MLO projections. 2-D mediolateral oblique (MLO) and craniocaudad (CC) views of both breasts were obtained. CAD: Full Field Digital Mammography with Computer Added Detection was performed. COMPARISON: Comparison is made with prior study dated 03/27/2020 and 01/05/2019. FINDINGS: Breast Composition: There are scattered areas of fibroglandular density. There are no dominant masses or suspicious calcifications. Stable benign-appearing bilateral axillary lymph nodes. No other significant abnormalities are identified. There has been no significant change since the prior study. BI/SCRN MAMM (CAD)W/GERRY BILAT IMPRESSION: Stable bilateral screening mammogram. Yearly follow-up mammogram recommended. (A) ASSESSMENT CATEGORY: BIRADS Category 2: Benign. A letter regarding these results will be sent to the patient by the facility within 30 days. Approximately 10% of breast cancers are not detected by mammography. A normal mammogram should not delay biopsy of a clinically suspicious abnormality. [id number] Electronically Signed: Ross Marie MD at 14:51 EST Reading Location ID and State: [facility] / [place] , Service support , CC: Dr. Jailene Aguilar DO Care Tech: Signed Jailene Aguilar DO Work Phone: Start: 03-29-2021 End: 04-06-2021 MRA Head ONLY without Contrast Comments: See Note; NOTES: [facility] Imaging Services [address] [place] [address] MRA Head ONLY without Contrast MR#: [id number] Acct: [id number] Name: TIFFANY MONTEZ Rep #: [id number] : 1945 F 76 From: Héctor De Leon MD PCP: Dr. Jailene Aguilar, DO Status: REG CLI Study: MRA Head ONLY without Contrast Date of Exam: 0 03/29/21 Exam# [id number] Ordering Dr: Chandu Garcia MD History: H/A EXAMINATION: MRA Head W/O Contrast TECHNIQUE: Routine [place]/brain 3D time of flight MR angiogram protocol was performed without gadolinium. 3D reconstructions were reviewed. IV Contrast dosage and agent: COMPARISON: None FINDINGS: --Anterior circulation: ICAs: No significant stenosis at the intracranial/visualized segments. ACAs: No significant stenosis at the visualized segments. ACOM: Present. MCAs: No significant stenosis at the visualized segments. --Posterior circulation: PCOMs: Left P-comm is present. 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 BASILAR ARTERY: No significant stenosis. VERTEBRAL ARTERIES: Small right vertebral artery terminates in inferior cerebellar branches. No evidence of intracranial aneurysm or vascular malformation. MRI/MRA Head ONLY without Contrast IMPRESSION: No evidence of arterial stenosis, occlusion or aneurysm. at 1239 Reported and signed by: Héctor De Leon MD Electronically Signed: Héctor De Leon MD at 12:38 EST Tel , Service support , CC: Dr. Jailene Aguilar DO; Dr. Yair Garcia MD Care Tech: Signed Jailene Aguilar DO Work Phone: Start: 01-10-2021 End: 01-17-2021 PT D/C Summary (1) Comments: See Note; NOTES: [facility] Physical Therapy Health[address] [place] [address] / REHABILITATION SERVICES DISCHARGE SUMMARY MR#: [id number] Acct: [id number] Name: TIFFANY MONTEZ Rep #: [id number] : 1945 75 From: Bryant Pro DPT, OCS, CSCS Referring DrSydni: Dr. Jailene Aguilar DO Status: REG RCR Insurance: MEDICARE PART A B ANTHEM It has been my pleasure to treat TIFFANY MONTEZ referred by Dr. Jailene Aguilar DO, with the diagnosis of BPV for a total of 3 visit(s). Discharge Date: 01/10/21 Please see the following information for a summary of their discharge status. Subjective: Better. less intense. Frequency is slightly better. Doing both exercises and VOR is hard to do. BD ex not making her dizzy at all. Dizzyness in last 2 weeks was only 2 of those days and one was very brief and the other was not real long compared to what they had been and could function with it. To doctor in January. % Improvement: 90 Objective/Function: Balance better. VOR improved quality and no symptoms. MSQ only slightly dizzy with head turns and nods. VOR x 2 not a symptomatic problem and good quality. overall much improved and appropriate to marisol Shay Kelly ex prescribed adn f/u with doctor in a couple weeks. Goal 1:: Abolish dizzyness at home standing up for one week Goal Progress: Progressing Goal 2:: Blance feels 75% better and I in managment Goal Progress: Goal Met Plan: d/c to HEP, pt to see doctor in a coupkle weeks and call prior if dizzyness worsens again. If there are questions or concerns regarding this patient's physical therapy, please feel free to call me at [phone]. Thank you for the referral of this patient. Sincerely, Bryant Pro, CHRISTI, OCS, CSCS Balance/Gait/Functional tests - Balance/Special Test Scores Functional Gait Assessment Score: 26 % Disability: 13.3400 Dizziness Score: 12 <Electronically signed by Bryant Pro DPT, KALLI, CSCS> 01/10/21 1148 CC: Dr. Jailene Aguilar, EBG Signed Jailene Aguilar DO Work Phone: Start: 12-20-2020 End: 12-20-2020 Inital Evaluation (1) - PT Comments: See Note; NOTES: [facility] [address] [place] [address]. [address] [place] [address] / REHABILITATION SERVICES INITIAL EVALUATION MR#: [id number] Acct: [id number] Name: TIFFANY MONTEZ Rep #: [id number] : 1945 75 From: Bryant Morteza DPT, OCS, CSCS Referring Dr.: Dr. Jailene Augilar DO Status: REG RCR Insurance: MEDICARE PART A B SIGIFREDO Patient's Visit Information TIFFANY MONTEZ is a 75 year old F referred to Physical Therapy by Dr. Jailene Aguilar DO with a diagnosis of BPV. Date of Evaluation: 12/20/20 Physical Therapist: Bryant Pro, CHRISTI, OCS, CSCS - Visit Plan Frequency: 1-2x /Week Duration: 2-4 Weeks Plan: 1-2x/week as needed for 2-4 weeks for positional monitor and balance as needed. Pt did not have obvious positive psoitional test but worhtwhile trial. - Subjective Eliz been having problems with dizzyness mostly if gets up after sitting too long. It can happen walking or moving gently at times also. Not getting out of bed. Not a big problem right now but getting more frequent and stronger. It has been going on for about a month, started out of nowhere. Described as lightheadedness, dizzyness and lasts up to a minute. Not when get in bed or roll in bed but sometimes if bends over.. It is infrequent 2-5x/week. Saw doctor and gave meds for it and cleaned out ear. Meds is Meclizine whcih she takes with a bad bout. It helps her to feel better. Sleeping is in bed , flat and sleeping well. kept her from going to the fair but otherwise is ADLs. Balance is OK, no falss prior to this or during. No cane or walker. Will carry walking stick if gets dizzy. Steps are not a problem. Hobbies include dogs and playing with them. Not employed, retired. - Objective Walks I and normal into and out of PT. Transfers bed and chair I. Steps reciprocal with one rail. Cervical AROM is WNL and painfree today. UE AROM WFL. - L HD. + R HD for assymetrical dizzyness but no obvious nystagmus today. Treated with r amber - Balance/Special Test Scores Functional Gait Assessment Score: 25 % Disability: 16.6700 Dizziness Score: 34 - Goals Goal 1:: Abolish dizzyness at home standing up for one week Goal Time Frame: 2-4 Weeks Goal 2:: Blance feels 75% better and I in managment Goal Time Frame: 2-4 Weeks - Rehabilitation Potential Physical Therapy Diagnosis: BPV possible and related subjective balance deficits. Rehabilitation Potential: Fair - Anticipated Interventions Patient/Client Instruction: Educate patient on: Condition, Plan of Care For the Purpose of:: To increase tolerance to activity/condition/position , To improve balance Therapeutic Exercise to Include: Balance training Comment: positional,vestibualr as needed. For the Purpose of:: To increase tolerance to activity/condition/position , To improve balance Thank you for the opportunity to evaluate your patient. For Medicare and Medicare HMO plans, please review the plan of care and approve it. It will need to be FAXED BACK to us at [phone] for Medicare purposes. For Medicare only, by signing this I certify the plan of care. Please let me know if there are questions or concerns regarding this plan of care. Physician Signature: Date: <Electronically signed by Bryant Pro DPT, OCS, CSCS> 12/20/20 1128 CC: Dr. Jailene Aguilar DO EBG Signed Jailene Aguilar DO Work Phone: Start: 09-12-2020 End: 09-13-2020 12 Lead EKG Comments: See Note; NOTES: [facility] Cardiovascular Services [address] [place] [address] 12 Lead EKG 09/12/20 1049 MR#: [id number] Acct: [id number] Name: TIFFANY MONTEZ Rep #: [id number] : 1945 75 From: Sebastien Walls MD Attending Dr: Dr. Yair Garcia MD Sta tus: REG CLI Ordering Dr: Yair Garcia MD Date: 09/12 Location: PSN Sex: F C Admitted: Test Reason : HTN Blood Pressure : / mmHG Vent. Rate : 056 BPM Atrial Rate : 056 BPM P-R Int : 168 ms QRS Dur : 078 ms QT Int : 414 ms P-R-T Axes : 031 003 024 degrees QTc Int : 399 ms Sinus bradycardia Otherwise normal ECG Confirmed by TITI PEDRAZA, SEBASTIEN ([id number]), web content editor MATILDE SAWYER ([id number]) on 09/13/2020 9:32:11 AM Referred By: Yair Garcia Confirmed By:SEBASTIEN WALLS MD 09/13/2032 Date Sebastien Walls MD CC: Dr. Jailene Aguilar DO; Dr. Yair Garcia MD Signed Jailene Aguilar DO Work Phone: Start: 06-23-2020 End: 06-23-2020 Renal Artery Duplex Ultrasound Comments: See Note; NOTES: [facility] Cardiovascular Services [address] [place] [address] Renal Artery Duplex Ultrasound 06/23/20 0906 MR#: [id number] Acct: [id number] Name: TIFFANY MONTEZ Rep #: [id number] : 1945 75 From: Josias Bailey MD Attending Dr: Dr. Jailene Aguilar DO Status: R EG CLI Ordering Dr: Jailene Aguilar DO Date: 06/23/20 Location: [facility] Sex: F C Admitted: Reason For Study: HTN Right Renal Artery Left Renal Artery Right renal artery ostium 65/21 Left renal artery ostium 107/28 RSV/EDV. PSV/EDV. Right renal artery proximal 122/49 Left renal artery proximal PSV/EDV PSV/EDV. 94/20 . Right renal artery mid 210/61 Left renal artery mid 125/46 PSV/EDV. PSV/EDV . Right renal artery distal 181/48 Left renal artery distal 147/46 PSV/EDV. PSV/EDV. Right RAR 2.73. Left RAR 1.91. Right Renal Parenchyma Left Renal Parenchyma Upper Pole Medula 18/7 PSV/EDV. Left upper pole medulla 42/14 Right upper pole medulla EDR 0.39 . PSV/EDV . Right upper pole medulla R.I. Left upper pole medulla EDR 0.33 . 0.60 . Left upper pole medulla R.I. 0.68 . Upper Dm Cortx 21/8 PSV/EDV. UP Cortex 28/10 PSV/EDV. Right upper pole cortex EDR 0.38 . Left upper pole cortex EDR 0.36 . Right upper pole cortex R.I. 0.63 . Left upper pole cortex R.I. 0.63 . Right lower Pole medulla 41/15 Left lower Pole medulla 29/11 PSV/EDV . PSV/EDV . Right lower pole medulla EDR 0.37 . Left lower pole medulla EDR 0.38 . Right lower pole medulla R.I. Left lower pole medulla R.I. 0.62 . 0.64 . Lower Pole Cortx 26/10 PSV/EDV. Lower Pole Cortex 23/10 PSV/EDV. Left lower pole cortex EDR 0.38 . Right lower pole cortex EDR 0.43 . Left lower pole cortex R.I. 0.63 . Right lower pole cortex R.I. 0.57 . Left Renal Hilar Right Renal Hilar LT Hilar avg 66/23 PSV/EDV . Right Hilar avg 67/25 PSV/EDV. Left hilar acceleration time 60 Right hilar acceleration time 80 m/sec. m/sec. Left Renal Dimensions Right Renal Dimensions Left kidney size 10.46 cm . Right kidney size 11.01 cm . Left cortical dimension 1.52 cm . Right cortical dimension 1.36 cm . Aorta Proximal abdominal aorta 2.53cm x 2.49 cm . Proximal abdominal aorta peak systolic velocity is 77 cm/sec . Distal abdominal aorta 1.79cm x 2.06 cm . Distal abdominal aorta peak systolic velocity is 63 cm/sec . VL/Renal Artery Duplex Ultrasound Interpretation Summary Maximal aortic diameter proximally 2.53 x 2.49 cm. Normal flow rate noted. Less than 60% stenosis right mid renal artery although borderline. Renal artery to aortic ratio of 3.5 to make this determination and current renal artery to aortic ratio is 2.73 Right renal length maintained at 11.01 cm Less then 60% stenosis left renal artery Left renal length maintained at 10.46 cm _ Ordering Physician: Jailene Aguilar Referring Physician: Jailene Aguilar Performed By: Neda Figueredo, ALEJA, RVT 06/23/20 1354 Date Josias Bailey MD CC: Dr. Jailene Aguilar, Date Dictated: 06/23/20905 Date Transcribed: 06/23/20 1354 Care Tech: Signed Jailene Aguilar Work Phone: Start: 03-27-2020 End: 03-27-2020 SCREEN MAMM (CAD) W/GERRY BILAT Comments: See Note; NOTES: [facility] Imaging Services [address] [place] [id number] SCREEN MAMM (CAD) W/GERRY BILAT MR#: [id number] Acct: [id number] Name: TIFFANY MONTEZ Rep #: [id number] : 1945 F 75 From: Ross mills MD PCP: Dr. Jailene Aguilar, Status: [facility] Study: SCREEN MAMM (CAD) W/GERRY BILAT Date of Exam: 0 03/27/20 Exam# [id number] Ordering Dr: Jailene Aguilar DO MAMMOGRAPHY - BILATERAL SCREENING REASON FOR EXAM: Female, 75 years old. Routine annual screening examination. PERTINENT HISTORY: Aunt with breast cancer. TECHNIQUE: Digital bilateral breast gerry (3D mammographic acquisition) in the CC and MLO projections. 2-D mediolateral oblique (MLO) and craniocaudad (CC) views of both breasts were obtained. CAD: Full Field Digital Mammography with Computer Added Detection was performed. COMPARISON: Comparison is made with prior study dated 01/05/2019. FINDINGS: Breast Composition: There are scattered areas of fibroglandular density. There are no dominant masses or suspicious calcifications. Stable benign-appearing bilateral axillary lymph nodes. No other significant abnormalities are identified. There has been no significant change since the prior study. BI/SCREEN MAMM (CAD) W/GERRY BILAT IMPRESSION: Stable bilateral screening mammogram. Yearly follow-up mammogram recommended. (A) ASSESSMENT CATEGORY: BIRADS Category 2: Benign. A letter regarding these results will be sent to the patient by the facility within 30 days. Approximately 10% of breast cancers are not detected by mammography. A normal mammogram should not delay biopsy of a clinically suspicious abnormality. [id number] Electronically Signed: Ross Marie, at 14:31 EST , Service support , CC: Dr. Jailene Aguilar, Care Tech: Signed Jailene Aguilar Work Phone: Start: 08-06-2019 End: 08-09-2019 PT/HP.PTDCSUM Comments: See Note; NOTES: [facility] [address] [place] [address]. [address] [place] [address] / REHABILITATION SERVICES DISCHARGE SUMMARY MR#: [id number] Acct: [id number] Name: TIFFANY MONTEZ Rep #: [id number] : 1945 74 From: Syed Alston PT Cert. MD Lopez, OCS Referring Dr.: Dr. Jailene Aguilar DO Status: REG RCR Insurance: MEDICARE PART A B ANTHEM It has been my pleasure to treat TIFFANY MONTEZ referred by Dr. Jailene Aguilar DO, with the diagnosis of LUMBAR BACK PAIN,DDD for a total of 19 visit(s). Discharge Date: Please see the following information for a summary of their discharge status. Subjective: Doing good ready to be d/c . Plan to do ex's on own at home. Walking/standing extended distances 1/2 hr. Strengthening ex's decreases pain. Right Back Pain Intensity (Out of 10): 2 % Improvement: 80 Objective/Function: POSTURE: mild foward posture. GAIT: reciprocal pattern slifgt lean to left. SYMMTRIES: left mild shift. LUMBAR ROM: flexion min loss,extension mild loss,side glides mild loss. MMT: quads/hams 4/5,hip 4-/5,ankle 4/5 Goal 1:: Independant with HEP Goal Progress: Goal Met Goal 2:: Improve posture for ADL'S Goal Progress: Goal Met Goal 3:: Patient to decrease back pain by 50% or > to improve function with ADL'S Goal Progress: Goal Met Goal 4:: Patient to improve lumbar ROM for function of recovery Goal Progress: Goal Met Goal 5:: Patient to increase back owestrey score by 5 points or > to improve QOL. Goal Progress: Goal Met Plan: D/C TO HEP If there are questions or concerns regarding this patient's physical therapy, please feel free to call me at [phone]. Thank you for the referral of this patient. Sincerely, Syed Alston PT, Cert T, OCS <Electronically signed by Syed Alston PT Cert. AJ, KALLI> 08/09/19 1448 CC: Dr. Jailene Aguilar DO TEODORA Signed Jailene Aguilar Start: 07-06-2019 End: 07-06-2019 Re-Evaluation - PT (1) Comments: See Note; NOTES: [facility] [address] [place] [address] [address] [place] [address] / REEVALUATION / MEDICARE RECERTIFICATION PHYSICAL THERAPY MR#: [id number] Acct: [id number] Name: TIFFANY MONTEZ Rep #: [id number] : 1945 74 From: Syed Alston PT, Cert. MDT, OCS Referring DrSydni: Jailene Aguilar DO Status: REG RCR Insurance: MEDICARE PART A B ANTHEM Jailene Aguilar DO, It has been my pleasure to treat TIFFANY MONTEZ over the last 10 visits for LUMBAR BACK PAIN,DDD. Please see the progress note below for an update on the physical therapy plan of care! Subjective: Doing better pain is still noticable when bending over Objective/Function: Godwin tx well with progression of goals: GAIT: reciprocal pattern. NEURO: intact. PALAPTION: tender LEFT L-S. LUMBAR ROM: flexion min loss ,ext min loss,side glides min loss pain R-L. MMT: quads/hams 4/5 ,hip flexion 4-/5,ankle 4/5 Plan Plan: CONT WITH POC 2XWEEK FOR 4 WEEKS PT INTERVENTIONS DLS ABD/BACK,POSTURAL EX'S ,MODALTIES Goals Goal 1:: Independant with HEP Goal Time Frame: 4-6 Weeks Goal Progress: Goal Met Goal 2:: Improve posture for ADL'S Goal Time Frame: 4-6 Weeks Goal Progress: Progressing Goal 3:: Patient to decrease back pain by 50% or > to improve function with ADL'S Goal Time Frame: 4-6 Weeks Goal Progress: Progressing Goal 4:: Patient to improve lumbar ROM for function of recovery Goal Time Frame: 4-6 Weeks Goal Progress: Progressing Goal 5:: Patient to increase back owestrey score by 5 points or > to improve QOL. Goal Time Frame: 4-6 Weeks Goal Progress: Progressing Anticipated Interventions Patient/Client Instruction: Educate patient on: Condition, Plan of Care For the Purpose of:: To decrease pain, To increase ROM, To improve muscle performance and motor function, To improve ability to perform ADL's, To increase tolerance to activity/condition/position , To decrease level of supervision to perform tasks, To improve ability of physical actions for home/community/work/leisure , To improve health of tissue, To decrease soft tissue restriction, To improve ability to perform tasks related to life management Therapeutic Exercise to Include: Strength training, Postural training, Flexibilty training, Dynamic Lumbar Stabilization For the Purpose of:: To decrease pain, To increase ROM, To improve muscle performance and motor function, To improve ability to perform ADL's, To increase tolerance to activity/condition/position , To improve ability of physical actions for home/community/work/leisure , To improve health of tissue, To decrease soft tissue restriction, To increase flexibility/ROM, To improve ability to perform tasks related to life management TENS: Yes IF ES: Yes Cryotherapy (ice pack, ice massage): Yes Thermo therapy (hot pack): Yes Ultrasound (thermal/non thermal): Yes For the Purpose of:: To decrease pain, To increase ROM, To improve nutrient delivery to tissue, To increase oxygenation perfusion, To improve health of tissue, To decrease soft tissue restriction Please do not hesitate to contact me at [phone] by phone or if you have questions or concerns regarding this new plan of care! Sincerely, Syed Alston PT, Cert MDT, OCS <Electronically signed by Cert. AJ Beatty PT, OCS> 07/06/19 1426 CC: Jailene Aguilar DO TEODORA Signed For Medicare only, by signing this I certify the plan of care. _ Physicians Signature Date Jailene Aguilar Start: 06-09-2019 End: 06-09-2019 Inital Evaluation (1) - PT Comments: See Note; NOTES: [facility] [facility]. [address] [place] [address] / REHABILITATION SERVICES INITIAL EVALUATION MR#: [id number] Acct: [id number] Name: TIFFANY MONTEZ Rep #: [id number] : 1945 74 From: Syed Alston PT, Cert. MDT, OCS Referring DrSydni: Jailene Aguilar DO Status: REG RCR Insurance: MEDICARE PART A B ANTHTRU Patient's Visit Information TIFFANY MONTEZ is a 74 year old F referred to Physical Therapy by Jailene Aguilar DO with a diagnosis of LUMBAR BACK PAIN,DDD. Date of Evaluation: 06/09/19 Physical Therapist: Syed Alston, PT, Cert MDT, OCS - Visit Plan Frequency: 2x /Week Duration: 4 Weeks Plan: PT INTERVENTIONS DLS ABD/BACK,POSTURAL EX'S ,MODALTIES - Subjective Subjective: This 74 y/o female presents to physical therapy with lumbar back pain. Patient developed right low back pain several months. Seen Dr Aguilar recommended PT. Patient had PT in past with 2019. Aggraveting factors right walking and standing,bending,lifting . Allevaiting factors sitting ,resting . Denies parathesia/tingling. Bowel/bladder good. Pateint has dificulty sleeping. Patient did have x-rays - DDD. Coughing/sneezing-. Patient pain affects housework tasks, and ADLS' . Patient pain affects QOL. SOCAIL: . VOCATION: retired - Pain Right Back Pain Intensity (Out of 10): 9 Pain Intensity Range: 10 - Objective POSTURE: mild foward posture. GAIT: reciprocal pattern mild foward posture. PALPATION: tender L-S region. NEURO: denies parathesia/tingling ,reflexes L3-4,L4-5,L5-S1 1/3. SYMMTRIES: ALIGN. LUMBAR ROM: flexion mod loss pain,extension min loss,side glides min loss. MMT: quads/hams 4/5,hip flexion 4-/5,ankle 4/5. FLEXABLITY: hams WFL. - Special Tests L/S Slump test left side: Negative L/S Slump test right side: Negative L/S Left Straight Leg Raise: Negative L/S Right Straight Leg Raise: Negative Lumbar Standing: Flexion - Mechanical Response: No effect Lumbar Standing: Flexion - Symptoms During Testing: Increases Lumbar Standing: Flexion - Symptoms After Testing: Worse Lumbar Standing: Extension - Mechanical Response: No effect Lumbar Standing: Extension - Symptoms During Testing: Decreases Lumbar Standing: Extension - Symptoms After Testing: No better Lumbar Standing: Right Side Glides - Mechanical Response: No effect Lumbar Standing: Right Side [place] - Symptoms During Testing: No effect Lumbar Standing: Right Side [place] - Symptoms After Testing: No effect Lumbar Standing: Left Side [place] - Mechanical Response: No effect Lumbar Standing: Left Side [place] - Symptoms During Testing: No effect Lumbar Standing: Left Side [place] - Symptoms After Testing: No effect - Goals Goal 1:: Independant with HEP Goal Time Frame: 4-6 Weeks Goal 2:: Improve posture for ADL'S Goal Time Frame: 4-6 Weeks Goal 3:: Patient to decrease back pain by 50% or > to improve function with ADL'S Goal Time Frame: 4-6 Weeks Goal 4:: Patient to improve lumbar ROM for function of recovery Goal Time Frame: 4-6 Weeks Goal 5:: Patient to increase back owestrey score by 5 points or > to improve QOL. Goal Time Frame: 4-6 Weeks - Rehabilitation Potential Physical Therapy Diagnosis: This patient has right lumbar pain with h/o DDD with pain with movement > with flexion ,walking/standing affects ADL's and housework tasks thus benifit from skilled PT Rehabilitation Potential: Good - Anticipated Interventions Patient/Client Instruction: Educate patient on: Condition, Plan of Care For the Purpose of:: To decrease pain, To increase ROM, To improve muscle performance and motor function, To improve ability to perform ADL's, To increase tolerance to activity/condition/position , To decrease level of supervision to perform tasks, To improve ability of physical actions for home/community/work/leisure , To improve health of tissue, To decrease soft tissue restriction, To improve ability to perform tasks related to life management Therapeutic Exercise to Include: Strength training, Postural training, Flexibilty training, Dynamic Lumbar Stabilization For the Purpose of:: To decrease pain, To increase ROM, To improve muscle performance and motor function, To improve ability to perform ADL's, To increase tolerance to activity/condition/position , To improve ability of physical actions for home/community/work/leisure , To improve health of tissue, To decrease soft tissue restriction, To increase flexibility/ROM, To improve ability to perform tasks related to life management TENS: Yes IF ES: Yes Cryotherapy (ice pack, ice massage): Yes Thermo therapy (hot pack): Yes Ultrasound (thermal/non thermal): Yes For the Purpose of:: To decrease pain, To increase ROM, To improve nutrient delivery to tissue, To increase oxygenation perfusion, To improve health of tissue, To decrease soft tissue restriction Thank you for the opportunity to evaluate your patient. For Medicare and Medicare HMO plans, please review the plan of care and approve it. It will need to be FAXED BACK to us at [phone] for Medicare purposes. For Medicare only, by signing this I certify the plan of care. Please let me know if there are questions or concerns regarding this plan of care. Physician Signature: Date: <Electronically signed by Syed Alston PT, Cert. T, OCS> 06/09/19 1648 CC: Jailene Aguilar DO JLA Signed Jailene Aguilar Start: 01-05-2019 End: 01-07-2019 Dexa Bone Density Study Comments: See Note; NOTES: [facility] Imaging Services [address] [place] [address] Dexa Bone Density Study MR#: [id number] Acct: [id number] Name: TIFFANY MONTEZ Rep #: [id number] : 1945 F 73 From: Ross Marie MD PCP: Jailene Aguilar DO Status: [facility] Study: Dexa Bone Density Study Date of Exam: 01/05/19 Exam# [id number] Ordering Dr: Jailene Aguilar DO STUDY: DUAL ENERGY X-RAY ABSORPTIOMETRY / DXA REASON FOR EXAM: Female, 73 years old. The patient is postmenopausal. Loss of height. TECHNIQUE: Bone Mineral Density (BMD) measurements of lumbar spine and bilateral hips were obtained. COMPARISON: None. FINDINGS: Lumbar Spine (L1-L4): g/cm2 (1.077) / T-score (-0.7) / Z-score (1.0) Findings are suggestive of normal bone density with a low fracture risk. Left Femur Total: g/cm2 (0.945) / T-score (-0.5) / Z-score (1.1) Left Femoral Neck: g/cm2 (0.883) / T-score (-1.1) / Z-score (0.7) Right Femur Total: g/cm2 (0.932) / T-score (-0.6) / Z-score (1.0) Right Femoral Neck: g/cm2 (0.788) / T-score (-1.8) / Z-score (0.0) BD/Dexa Bone Density Study IMPRESSION: The patient is considered osteopenic as outlined below according to World Gil Organization (WHO) criteria with a moderate fracture risk. Reference Information: The T-score is the number of standard deviations above or below the standard which is normal for young adults at their peak bone mineral density. The World Health Organization (WHO) interprets the T-scores as follows: Above -1 Normal bone density Between -1 and -2.5 Osteopenia Equal to / or below -2.5 Osteoporosis As a practical clinical guideline, osteopenia may be graded as follows: Mild -1 through -1.5 Moderate -1.6 through -2.0 Severe -2.1 through -2.4 The Z-score is the number of standard deviations above or below age-matched controls. A Z-score of less than -1.5 would be considered abnormal. References: 1. NIH Osteoporosis and Related Bone Diseases http://www.osteo.org 2. International Society for Clinical Densitometry http://www.iscd.org 3. National Osteoporosis Foundation http://www.nof.org Electronically Signed: Ross Marie, at 9:42 EDT , Service support , CC: Jailene Aguilar DO Care Tech: Signed Jailene Aguilar Work Phone: Start: 01-05-2019 End: 01-19-2019 SCREEN MAMM (CAD) W/GERRY BILAT Comments: See Note; NOTES: [facility] Imaging Services [address] [address] SCREEN MAMM (CAD) W/GERRY BILAT MR#: [id number] Acct: [id number] Name: TIFFANY MONTEZ Rep #: [id number] : 1945 F 73 From: Ross Marie MD PCP: Jailene Aguilar DO Status: REG CLI Study: SCREEN MAMM (CAD) W/GERRY BILAT Date of Exam: 01/05/19 Exam# [id number] Ordering Dr: Jailene Aguilar DO ADDENDUM by Ross Marie MD on 01/19/19 at 1551 ADDENDUM This is an addendum report. Prior outside examination dated December 18, 2017 is made available for comparison. There has been no change. Electronically Signed: Ross Marie, at 15:51 EDT , Service support , 01/19/19 1557 Date cc: Jailene Aguilar DO * Signed ADDENDUM by Ross Marie MD on 01/19/19 at 1551 BI/SCREEN MAMM (CAD) W/GERRY BILAT 01/19/19 1552 Date cc: Jailene Aguilar DO * Signed MAMMOGRAPHY - BILATERAL SCREENING REASON FOR EXAM: Female, 73 years old. Routine annual screening examination. PERTINENT HISTORY: Aunt with breast cancer. TECHNIQUE: Digital bilateral breast gerry (3D mammographic acquisition) in the CC and MLO projections. 2-D mediolateral oblique (MLO) and craniocaudad (CC) views of both breasts were obtained. CAD: Full Field Digital Mammography with Computer Added Detection was performed. COMPARISON: No comparison mammograms available at this time. If any prior films become available, an addendum to this report can be generated. FINDINGS: Breast Composition: There are scattered areas of fibroglandular density. There are no dominant masses or suspicious calcifications. No other significant abnormalities are identified. BI/SCREEN MAMM (CAD) W/GERRY BILAT IMPRESSION: Negative screening mammogram. Yearly followup mammogram recommended. (A) ASSESSMENT CATEGORY: BIRADS Category 1: Negative. A letter regarding these results will be sent to the patient by the facility within 30 days. Approximately 10% of breast cancers are not detected by mammography. A normal mammogram should not delay biopsy of a clinically suspicious abnormality. [id number] Electronically Signed: Ross Marie, at 8:04 EDT , Service support , CC: Jailene Aguilar DO Care Tech: Signed Jailene Aguilar Work Phone: Start: 05-11-2018 End: 05-12-2018 Upper Ext Joint Only(Routine) Comments: See Note; NOTES: [facility] Services [address] [place] [address] Upper Ext Joint Only(Routine) MR#: [id number] Acct: [id number] Name: TIFFANY MONTEZ Rep #: [id number] : 1945 F 73 From: Clement Roger MD PCP: Jailene Aguilar DO Status: REG CLI Study: Upper Ext Joint Only(Routine) Date of Exam: 05/11/18 Exam# [id number] Ordering Dr: Jailene Aguilar DO STUDY: MRI RIGHT SHOULDER REASON FOR EXAM: Right shoulder pain extending down arm for 7 months. TECHNIQUE: Standardized fat and water weighted pulse sequences were obtained in all 3 orthogonal planes. COMPARISON: Radiographs 05/01/2018. FINDINGS: There is a full-thickness tear of the supraspinatus and infraspinatus tendons retracted approximately 2.9 cm to the level of the acromioclavicular joint (T2 coronal images 9-16). There is mild subscapularis tendinosis (proton density axial images 10, 11) without discrete tendon tear. Normal teres minor tendon. There is mild atrophy with mild partial fat replacement of the supraspinatus and infraspinatus muscles (T2 sagittal image 22). Normal subscapularis muscle. Normal teres minor muscle. There is a small glenohumeral joint effusion. There is superior migration of the humeral head secondary to the retracted rotator cuff tear. There is a tear with nonvisualization of the intracapsular long biceps tendon. There is tear/degeneration of the posterior aspect of the superior labrum (coronal images 13, 14). Normal capsulo- ligamentous complex. There is mild acromioclavicular arthrosis without substantial undersurface osteophytes (proton-density coronal image 11). There is an os acromiale (proton-density sagittal image 13). There is a Type II morphology (curved), with a neutral orientation. There is a small volume of subacromial-subdeltoid bursal fluid. There is mild thickening of the coracoacromial ligament (T2 sagittal image 13). Normal deltoid muscle. Normal trapezius muscle. MRI/Upper Ext Joint Only(Routine) IMPRESSION: Full-thickness tear of the supraspinatus and infraspinatus tendons. Mild subscapularis tendinosis. Mild atrophy of the supraspinatus and infraspinatus muscles. Tear of the long biceps tendon. Tear/degeneration of the posterior aspect of the superior labrum. Mild acromioclavicular arthrosis. Os acromiale. Mild thickening of the coracoacromial ligament. Glenohumeral joint fluid communicating with the subacromial-subdeltoid bursa. Electronically Signed: Clement Roger MD at 9:06 EST Tel , Service support , CC: Jailene Aguilar DO Care Tech: Signed Jailene Aguilar Work Phone: Start: 05-01-2018 End: 05-02-2018 Shoulder min 2 Views Comments: See Note; NOTES: [facility] Imaging Services [address] [place] [address] Shoulder min 2 Views MR#: [id number] Acct: [id number] Name: JANA MONTEZPernell Farah Rep #: [id number] : 1945 F 73 From: Justin Bauer DO PCP: Jailene Aguilar DO Status: REG CLI Study: Shoulder min 2 Views Date of Exam: 05/01/18 Exam# [id number] Ordering Dr: Jailene Aguilar DO STUDY: X-RAY - RIGHT SHOULDER REASON FOR EXAM: Female, 73 years old. Pain TECHNIQUE: 4 view(s) of the shoulder. COMPARISON: None. FINDINGS: Normal glenohumeral articulation. Normal acromioclavicular joint. Normal acromion. Normal humeral head and visualized proximal humerus. The soft tissue structures are unremarkable. Normal visualized pulmonary apex. RAD/Shoulder min 2 Views IMPRESSION: Normal x-ray examination of the shoulder. Electronically Signed: Justin DO Juancarlos at 9:04 EST Tel [phone], Service support , CC: Jailene Aguilar DO Care Tech: Signed Jailene Aguilar Work Phone: Start: 03-31-2018 End: 03-31-2018 Re-Evaluation - PT (1) Comments: See Note; NOTES: [facility] [address] [facility]. [address] [place] [address] / REEVALUATION / MEDICARE RECERTIFICATION PHYSICAL THERAPY MR#: [id number] Acct: [id number] Name: TIFFANY MONTEZ Rep #: [id number] : 1945 73 From: Jani Malik DPT Referring Dr.: Jailene Aguilar DO Status: REG RCR Insurance: MEDICARE PART A B SIGIFREDO Aguilar DO, It has been my pleasure to [...] do not hesitate to contact me at [phone] by phone or if you have questions or concerns regarding this new plan of care! Sincerely, Jani Malik DPT <Electronically signed by Jani Malik DPT> 03/31/18 1354 CC: Jailene Aguilar DO CLS Signed For Medicare only, by signing this I certify the plan of care. _ Physicians Signature Date Jailene Aguilar Start: 03-11-2018 End: 03-12-2018 L/S Spine Min 4 Views Comments: See Note; NOTES: [facility] Services [address] [place] [address] L/S Spine Min 4 Views MR#: [id number] Acct: [id number] Name: TIFFANY MONTEZ Rep #: [id number] : 1945 F 72 From: Osmany Vuong DO PCP: Jailene Aguilar DO Status: REG CLI Study: L/S Spine Min 4 Views Date of Exam: 03/11/18 Exam# [id number] Ordering Dr: Jailene Aguilar DO STUDY: X-RAY [...] Service support , CC: Jailene Aguilar DO Care Tech: Signed Jailene Aguilar Work Phone: Start: 03-03-2018 End: 03-03-2018 Inital Evaluation (1) - PT Comments: See Note; NOTES: [facility] [address] [place] [address]. [address] [place] [address] Fax REHABILITATION SERVICES INITIAL EVALUATION MR#: [id number] Acct: [id number] Name: TCTIFFANY Farah Rep #: [id number] : 1945 72 From: Jani Malik DPT Referring Dr.: Jailene Aguilar DO Status: REG RCR Insurance: MEDICARE PART A B ANTHEM Patient's Visit Information TIFFANY Sofi MONTEZ is a 72 year old F [...] moving boxes as she moved back to [place] from [place]. Pt. reports having pain that extends into [...] Response: No effect Lumbar Standing: Right Side [place] - Symptoms During Testing: Increases Lumbar Standing: Right Side [place] - Symptoms After Testing: No worse Lumbar Standing: Left Side [place] - Mechanical Response: No effect Lumbar Standing: Left Side [place] - Symptoms During Testing: Increases Lumbar Standing: Left Side [place] - Symptoms After Testing: No worse R [...] to be FAXED BACK to us at [phone] for Medicare purposes. For Medicare only, by signing this I certify the plan of care. Please let me know if there are questions or concerns regarding this plan of care. Physician Signature: Date: <Electronically signed by Jani Malik DPT> 03/03/18 1236 CC: Jailene Aguilar DO CLS Signed Jailene Aguilar B/L cataract sx Yolanda L Long B/L cataract sx Emily Gravi us B/L cataract sx Emily Gravi us B/L cataract sx Dilan Strong B/L cataract sx Emily Gravi us B/L cataract sx Lauren noel B/L cataract sx Dilan Strong B/L cataract sx Krista Cross B/L cataract sx Emily Gravi us B/L cataract sx Emily Gravi us B/L cataract sx Emily Gravi us B/L cataract sx Yolanda L Long B/L cataract sx Krista Cross B/L cataract sx Krista Cross B/L cataract sx Krista Cross PREVENTIVE MEDICINE SPECIALIST B/L cataract sx Krista Cross PREVENTIVE MEDICINE SPECIALIST B/L cataract sx Krista Cross PREVENTIVE MEDICINE SPECIALIST B/L cataract sx Estefania Slarb PREVENTIVE MEDICINE SPECIALIST B/L cataract sx Emily Gravi us STRAWHAT INSPECTOR AND PACKER B/L cataract sx Emily Gravi us STRAWHAT INSPECTOR AND PACKER B/L cataract sx Ashley Tres y MA B/L cataract sx Patricia Coffma n PREVENTIVE MEDICINE SPECIALIST B/L cataract sx Kayela Radfo rd STRAWHAT INSPECTOR AND PACKER B/L cataract sx Kayela Radfo rd STRAWHAT INSPECTOR AND PACKER B/L cataract sx Kayela Radfo rd STRAWHAT INSPECTOR AND PACKER B/L cataract sx Estefania Slarb PREVENTIVE MEDICINE SPECIALIST B/L cataract sx Patricia Coffma n PREVENTIVE MEDICINE SPECIALIST D&C Yolanda L Long D&C Emily Gravius D&C Emily Gravius D&C Dilan Strong D&C Emily Gravius D&C Lauren Marshall D&C Dilan Strong D&C Krista Botello D&C Emily Gravius D&C Emily Gravius D&C Emily Gravius D&C Yolanda L Long D&C Krista Botello D&C Krista Botello D&C Krista Cross LP N D&C Krista Ayan LP N D&C Krista Ayan LP N D&C Estefania Slarb LP N D&C Emily Gravius STRAWHAT INSPECTOR AND PACKER D&C Emily Gravius STRAWHAT INSPECTOR AND PACKER D&C Ashley Griffith D&C Patricia Emigdio Pernell PN D&C Kayela Felix STRAWHAT INSPECTOR AND PACKER D&C Kayela Felix STRAWHAT INSPECTOR AND PACKER D&C Andra Buttford STRAWHAT INSPECTOR AND PACKER D&C Estefania Slarb LP N D&C Patricia Emigdio L PN H/O: surgery History of local excision of skin lesion Krista Cross PREVENTIVE MEDICINE SPECIALIST H/O: surgery History of local excision of skin lesion Krista Cross PREVENTIVE MEDICINE SPECIALIST H/O: surgery History of local excision of skin lesion Krista Cross PREVENTIVE MEDICINE SPECIALIST H/O: surgery History of local excision of skin lesion Krista Cross PREVENTIVE MEDICINE SPECIALIST H/O: surgery History of local excision of skin lesion Estefania Slarb PREVENTIVE MEDICINE SPECIALIST H/O: surgery History of local excision of skin lesion Emily Gravius STRAWHAT INSPECTOR AND PACKER H/O: surgery History of local excision of skin lesion Emily Gravius STRAWHAT INSPECTOR AND PACKER H/O: surgery History of local excision of skin lesion Ashley Marie MA H/O: surgery History of local excision of skin lesion Patricia Emigdio PREVENTIVE MEDICINE SPECIALIST H/O: surgery History of local excision of skin lesion Jailene Aguilar DO Work Phone: H/O: surgery History of local excision of skin lesion Andra Washington STRAWHAT INSPECTOR AND PACKER H/O: surgery History of local excision of skin lesion Andra Washington STRAWHAT INSPECTOR AND PACKER End: 05-23-2022 H/O: surgery History of local excision of skin lesion Mary Elba STRAWHAT INSPECTOR AND PACKER Ligation of fallopia n tube Yolanda L Long Ligation of fallopia n tube Emily Gravius Ligation of fallopia n tube Emily Gravius Ligation of fallopia n tube Dilan Strong Ligation of fallopia n tube Emily Gravius Ligation of fallopia n tube Lauren Messenger Ligation of fallopia n tube Dilan Strong Ligation of fallopia n tube Krista Cross Ligation of fallopia n tube Emily Gravius Ligation of fallopia n tube Emily Gravius Ligation of fallopia n tube Emily Gravius Ligation of fallopia n tube Yolanda L Long Ligation of fallopia n tube Krista Cross Ligation of fallopia n tube Krista Cross Ligation of fallopia n tube Krista Cross PREVENTIVE MEDICINE SPECIALIST Ligation of fallopia n tube Krista Cross PREVENTIVE MEDICINE SPECIALIST Ligation of fallopia n tube Krista Cross PREVENTIVE MEDICINE SPECIALIST Ligation of fallopia n tube Estefania Slarb PREVENTIVE MEDICINE SPECIALIST Ligation of fallopia n tube Emily Gravius STRAWHAT INSPECTOR AND PACKER Ligation of fallopia n tube Emily Gravius STRAWHAT INSPECTOR AND PACKER Ligation of fallopia n tube Ashley Marie MA Ligation of fallopia n tube Patricia Emigdio PREVENTIVE MEDICINE SPECIALIST Ligation of fallopia n tube Kayela Boynton STRAWHAT INSPECTOR AND PACKER Ligation of fallopia n tube Kayela Felix STRAWHAT INSPECTOR AND PACKER Ligation of fallopia n tube Kayela Boynton STRAWHAT INSPECTOR AND PACKER Ligation of fallopia n tube Estefania Alex PREVENTIVE MEDICINE SPECIALIST Ligation of fallopia n tube Patricia Beal PREVENTIVE MEDICINE SPECIALIST Plan of Treatment Date Care Activity Detail Author Start: 12-04-2022 25 hydroxy includes fractions if performed CALCIFEDIOL (97594) [facility]; [facility] Work Phone: Start: 12-04-2022 Assay of thyroid stimulating hormone tsh TSH (44983) [facility]; [facility] Work Phone: Start: 12-04-2022 Procedure Education Eprescribed prescriptions (G8553) [facility]; [facility] Work Phone: Start: 08-12-2022 Procedure Education Eprescribed prescriptions (G8553) [facility]; [facility] Work Phone: Start: 08-12-2022 Provider Instructions for Treatment [facility] Work Phone: Start: 08-12-2022 25 hydroxy includes fractions if performed CALCIFIDIOL (51908) VIT D 25 [facility]; [facility] Work Phone: Start: 08-12-2022 Assay of thyroid stimulating hormone tsh TSH (50277) [facility]; [facility] Work Phone: Start: 08-12-2022 Urnls dip stick/tablet reagent auto microscopy URINALYSIS, W/ MICRO (60243) [facility]; [facility] Work Phone: Start: 08-12-2022 Urine albumin quantitative MICROALBUMIN: CREATININE RATIO (73658) AND (47044) [facility]; [facility] Work Phone: Start: 08-12-2022 Comprehensive metabolic panel METABOLIC PANEL, COMPREHENSIVE (95965) [facility]; [facility] Work Phone: Start: 08-12-2022 Lipid panel LIPID PANEL (29219) [facility]; [facility] Work Phone: Start: 08-12-2022 Blood count complete auto&auto difrntl wbc CBC W/AUTO DIFF WBC (15040) [facility]; [facility] Work Phone: Start: 05-23-2022 Procedure Education Eprescribed prescriptions (G8553) [facility]; [facility] Work Phone: Start: 05-17-2022 Procedure Education Eprescribed prescriptions (G8553) [facility]; [facility] Work Phone: Start: 05-17-2022 Provider Instructions for Treatment Shoulder Injection [facility]; [facility] Work Phone: Start: 02-11-2022 Procedure Education Eprescribed prescriptions (G8553) [facility]; [facility] Work Phone: Start: 02-11-2022 Provider Instructions for Treatment [facility]; [facility] Work Phone: Start: 02-11-2022 Lipid panel LIPID PANEL (32735) [facility]; [facility] Work Phone: Start: 12-31-2021 25 hydroxy includes fractions if performed CALCIFEDIOL (83729) [facility]; [facility] Work Phone: Start: 12-31-2021 Blood count complete auto&auto difrntl wbc CBC, PLATELETS & AUT DIFF (26210) [facility]; [facility] Work Phone: Start: 12-31-2021 Comprehensive metabolic panel METABOLIC PANEL, COMPREHENSIVE (91363) [facility]; [facility] Work Phone: Start: 12-31-2021 Urinalysis microscopic only URINALYSIS MICROSCOPY (99926) [facility]; [facility] Work Phone: Start: 12-31-2021 Creatinine other source MICROALB;CREAT RATION, RAND UR (11228) [facility]; [facility] Work Phone: Start: 12-31-2021 Assay of thyroid stimulating hormone tsh TSH (THYROID STIMULATING HORMONE) (13753) [facility]; [facility] Work Phone: Start: 11-07-2021 Procedure Education Eprescribed prescriptions (G8553) [facility]; [facility] Work Phone: Start: 08-16-2021 Procedure Education Eprescribed prescriptions (G8553) [facility]; [facility] Work Phone: Start: 06-11-2021 Provider Instructions for Treatment Reviewed Diagnostic Tests [facility]; [facility] Work Phone: Start: 05-16-2021 Procedure Education Eprescribed prescriptions (G8553) [facility]; [facility] Work Phone: Start: 01-29-2021 Procedure Education Eprescribed prescriptions (G8553) [facility]; [facility] Work Phone: Start: 01-29-2021 Provider Instructions for Treatment [facility]; [facility] Work Phone: Start: 12-11-2020 Procedure Education Eprescribed prescriptions (G8553) [facility]; [facility] Work Phone: Start: 12-11-2020 Provider Instructions for Treatment [facility]; [facility] Work Phone: Start: 08-31-2020 Procedure Education Eprescribed prescriptions (G8553) [facility]; [facility] Work Phone: Start: 08-10-2020 Procedure Education Eprescribed prescriptions (G8553) [facility]; [facility] Work Phone: Start: 08-10-2020 Provider Instructions for Treatment [facility]; [facility] Work Phone: Start: 07-20-2020 Procedure Education Eprescribed prescriptions (G8553) [facility]; [facility] Work Phone: Start: 07-20-2020 Provider Instructions for Treatment [facility]; [facility] Work Phone: Start: 06-29-2020 Procedure Education Eprescribed prescriptions (G8553) [facility]; [facility] Work Phone: Start: 06-29-2020 Provider Instructions for Treatment [facility]; [facility] Work Phone: Start: 06-07-2020 Basic metabolic panel calcium total Metabolic Panel, Basic (91975) [facility]; [facility] Work Phone: Immunizations Immunization Date Immunization Notes Care Provider [facility] 08-06-2022 COVID-Moderna (50 MCG/0.5 ML) Jailene Jeff DO Work Phone: [facility]; [facility] Work Phone: 01-16-2021 COVID-Moderna (100 MCG/0.5 ML) Jailene Jeff DO Work Phone: [facility]; [facility] Work Phone: 05-11-2020 COVID-19 (Moderna) Jailene Jeff [facility]; [facility] Work Phone: 11-27-2019 influenza, seasonal, injectable Jailene Jeff [facility] Work Phone: 11-27-2019 zoster vaccine, live Jailene Jeff [facility] Work Phone: 10-23-2019 zoster vaccine, live Jailene Jeff [facility] Work Phone: 03-24-2017 influenza, seasonal, injectable Jailene Jeff [facility] Work Phone: 03-24-2017 zoster vaccine, live Jailene Jeff [facility] Work Phone: Payers Date Payer Category Payer Medicare [id number] 2021 Unknown [id number] 1945 Unknown [id number] Unknown Social History Date Type Detail Facility Alcohol Use [facility] Work Phone: Clinical Notes Note Date & Type Note Facility [facility] Work Phone: [phone]* Name Dates Details How to Access Health Informa tion Online using Patient Portal and [employer] Apps Indication:Non-smoker Start:20-Jul-2020 Instruction Type:Patient Education Patient Instructions Indication:Non-smoker Start:20-Jul-2020 Instruction Type:Provider Instructions for Treatment How to Access Health Informa tion Online using Patient Portal and [employer] Apps Indication:Non-smoker Start:29-Jun-2020 Instruction Type:Patient Education Patient Instructions Indication:Non-smoker Start:29-Jun-2020 Instruction Type:Provider Instructions for Treatment How to Access Health Informa tion Online using Patient Portal and [employer] Apps Indication:Non-smoker Start:07-Jun-2020 Instruction Type:Patient Education Patient Instructions Indication:Non-smoker Start:07-Jun-2020 Instruction Type:Provider Instructions for Treatment How to Access Health Informa tion Online using Patient Portal and [employer] Apps Indication:Non-smoker Start:24-May-2020 Instruction Type:Patient Education Patient Instructions Indication:Non-smoker Start:24-May-2020 Instruction Type:Provider Instructions for Treatment Patient Instructions Indication:Non-smoker Start:08-Mar-2020 Instruction Type:Provider Instructions for Treatment How to Access Health Informa tion Online using Patient Portal and [employer] Apps Indication:Non-smoker Start:08-Mar-2020 Instruction Type:Patient Education obesity counseling Indication:Hypertension Start:23-Dec-2019 Instruction Type:Provider Instructions for Treatment How to access health informa tion online Indication:Non-smoker Start:23-Dec-2019 Instruction Type:Patient Education How to access health informa tion online - Detail Indication:Non-smoker Start:23-Dec-2019 Instruction Type:Patient Education Patient Instructions Indication:Non-smoker Start:23-Dec-2019 Instruction Type:Provider Instructions for Treatment How to access health informa tion online Indication:Non-smoker Start:08-Dec-2019 Instruction Type:Patient Education How to access health informa tion online - Detail Indication:Non-smoker Start:08-Dec-2019 Instruction Type:Patient Education Patient Instructions Indication:Non-smoker Start:08-Dec-2019 Instruction Type:Provider Instructions for Treatment How to access health informa tion online Indication:Non-smoker Start:11-Oct-2019 Instruction Type:Patient Education How to access health informa tion online - Detail Indication:Non-smoker Start:11-Oct-2019 Instruction Type:Patient Education Patient Instructions Indication:Non-smoker Start:11-Oct-2019 Instruction Type:Provider Instructions for Treatment How to access health informa tion online - Detail Indication:Non-smoker Start:21-Jul-2019 Instruction Type:Patient Education How to access health informa tion online Indication:Non-smoker Start:21-Jul-2019 Instruction Type:Patient Education Patient Instructions Indication:Non-smoker Start:21-Jul-2019 Instruction Type:Provider Instructions for Treatment How to access health informa tion online - Detail Indication:BMI 31.0-31.9,adult Start:09-Jun-2019 Instruction Type:Patient Education How to access health informa tion online Indication:BMI 31.0-31.9,adult Start:09-Jun-2019 Instruction Type:Patient Education Patient Instructions Indication:BMI 31.0-31.9,adult Start:09-Jun-2019 Instruction Type:Provider Instructions for Treatment How to access health informa tion online Indication:Non-smoker Start:26-Mar-2019 Instruction Type:Patient Education How to access health informa tion online - Detail Indication:Non-smoker Start:26-Mar-2019 Instruction Type:Patient Education Patient Instructions Indication:Non-smoker Start:26-Mar-2019 Instruction Type:Provider Instructions for Treatment How to access health informa tion online Indication:Non-smoker Start:22-Jan-2019 Instruction Type:Patient Education How to access health informa tion online - Detail Indication:Non-smoker Start:22-Jan-2019 Instruction Type:Patient Education Patient Instructions Indication:Non-smoker Start:22-Jan-2019 Instruction Type:Provider Instructions for Treatment How to access health informa tion online Indication:Non-smoker Start:24-Aug-2018 Instruction Type:Patient Education How to access health informa tion online - Detail Indication:Non-smoker Start:24-Aug-2018 Instruction Type:Patient Education Patient Instructions Indication:Non-smoker Start:24-Aug-2018 Instruction Type:Provider Instructions for Treatment How to access health informa tion online Indication:Non-smoker Start:13-Jul-2018 Instruction Type:Patient Education How to access health informa tion online - Detail Indication:Non-smoker Start:13-Jul-2018 Instruction Type:Patient Education Patient Instructions Indication:Flashing lights Start:13-Jul-2018 Instruction Type:Provider Instructions for Treatment How to access health informa tion online Indication:Non-smoker Start:21-May-2018 Instruction Type:Patient Education How to access health informa tion online - Detail Indication:Non-smoker Start:21-May-2018 Instruction Type:Patient Education Patient Instructions Indication:Non-smoker Start:21-May-2018 Instruction Type:Provider Instructions for Treatment How to access health informa tion online Indication:Non-smoker Start:01-May-2018 Instruction Type:Patient Education How to access health informa tion online - Detail Indication:Non-smoker Start:01-May-2018 Instruction Type:Patient Education Patient Instructions Indication:Non-smoker Start:01-May-2018 Instruction Type:Provider Instructions for Treatment How to access health informa tion online Indication:Non-smoker Start:02-Apr-2018 Instruction Type:Patient Education How to access health informa tion online - Detail Indication:Non-smoker Start:02-Apr-2018 Instruction Type:Patient Education Patient Instructions Indication:Non-smoker Start:02-Apr-2018 Instruction Type:Provider Instructions for Treatment How to access health informa tion online Indication:Hypertension Start:20-Mar-2018 Instruction Type:Patient Education How to access health informa tion online - Detail Indication:Hypertension Start:20-Mar-2018 Instruction Type:Patient Education Patient Instructions Indication:Hypertension Start:20-Mar-2018 Instruction Type:Provider Instructions for Treatment How to access health informa tion online Indication:Non-smoker Start:23-Feb-2018 Instruction Type:Patient Education How to access health informa tion online Indication:Non-smoker Start:23-Feb-2018 Instruction Type:Patient Education How to access health informa tion online - Detail Indication:Non-smoker Start:23-Feb-2018 Instruction Type:Patient Education Patient Instructions Indication:Non-smoker Start:23-Feb-2018 Instruction Type:Provider Instructions for Treatment [facility]; [facility] Work Phone: Instructions* Name Dates Details Patient Instructions Indication:Non-smoker Start:10-Aug-2020 Instruction Type:Provider Instructions for Treatment How to Access Health Informa tion Online using Patient Portal and [employer] Apps Indication:Non-smoker Start:10-Aug-2020 Instruction Type:Patient Education How to Access Health Informa tion Online using Patient Portal and [employer] Apps Indication:Non-smoker Start:20-Jul-2020 Instruction Type:Patient Education Patient Instructions Indication:Non-smoker Start:20-Jul-2020 Instruction Type:Provider Instructions for Treatment How to Access Health Informa tion Online using Patient Portal and [employer] Apps Indication:Non-smoker Start:29-Jun-2020 Instruction Type:Patient Education Patient Instructions Indication:Non-smoker Start:29-Jun-2020 Instruction Type:Provider Instructions for Treatment How to Access Health Informa tion Online using Patient Portal and [employer] Apps Indication:Non-smoker Start:07-Jun-2020 Instruction Type:Patient Education Patient Instructions Indication:Non-smoker Start:07-Jun-2020 Instruction Type:Provider Instructions for Treatment How to Access Health Informa tion Online using Patient Portal and [employer] Apps Indication:Non-smoker Start:24-May-2020 Instruction Type:Patient Education Patient Instructions Indication:Non-smoker Start:24-May-2020 Instruction Type:Provider Instructions for Treatment Patient Instructions Indication:Non-smoker Start:08-Mar-2020 Instruction Type:Provider Instructions for Treatment How to Access Health Informa tion Online using Patient Portal and [employer] Apps Indication:Non-smoker Start:08-Mar-2020 Instruction Type:Patient Education obesity counseling Indication:Hypertension Start:23-Dec-2019 Instruction Type:Provider Instructions for Treatment How to access health informa tion online Indication:Non-smoker Start:23-Dec-2019 Instruction Type:Patient Education How to access health informa tion online - Detail Indication:Non-smoker Start:23-Dec-2019 Instruction Type:Patient Education Patient Instructions Indication:Non-smoker Start:23-Dec-2019 Instruction Type:Provider Instructions for Treatment How to access health informa tion online Indication:Non-smoker Start:08-Dec-2019 Instruction Type:Patient Education How to access health informa tion online - Detail Indication:Non-smoker Start:08-Dec-2019 Instruction Type:Patient Education Patient Instructions Indication:Non-smoker Start:08-Dec-2019 Instruction Type:Provider Instructions for Treatment How to access health informa tion online Indication:Non-smoker Start:11-Oct-2019 Instruction Type:Patient Education How to access health informa tion online - Detail Indication:Non-smoker Start:11-Oct-2019 Instruction Type:Patient Education Patient Instructions Indication:Non-smoker Start:11-Oct-2019 Instruction Type:Provider Instructions for Treatment How to access health informa tion online - Detail Indication:Non-smoker Start:21-Jul-2019 Instruction Type:Patient Education How to access health informa tion online Indication:Non-smoker Start:21-Jul-2019 Instruction Type:Patient Education Patient Instructions Indication:Non-smoker Start:21-Jul-2019 Instruction Type:Provider Instructions for Treatment How to access health informa tion online - Detail Indication:BMI 31.0-31.9,adult Start:09-Jun-2019 Instruction Type:Patient Education How to access health informa tion online Indication:BMI 31.0-31.9,adult Start:09-Jun-2019 Instruction Type:Patient Education Patient Instructions Indication:BMI 31.0-31.9,adult Start:09-Jun-2019 Instruction Type:Provider Instructions for Treatment How to access health informa tion online Indication:Non-smoker Start:26-Mar-2019 Instruction Type:Patient Education How to access health informa tion online - Detail Indication:Non-smoker Start:26-Mar-2019 Instruction Type:Patient Education Patient Instructions Indication:Non-smoker Start:26-Mar-2019 Instruction Type:Provider Instructions for Treatment How to access health informa tion online Indication:Non-smoker Start:22-Jan-2019 Instruction Type:Patient Education How to access health informa tion online - Detail Indication:Non-smoker Start:22-Jan-2019 Instruction Type:Patient Education Patient Instructions Indication:Non-smoker Start:22-Jan-2019 Instruction Type:Provider Instructions for Treatment How to access health informa tion online Indication:Non-smoker Start:24-Aug-2018 Instruction Type:Patient Education How to access health informa tion online - Detail Indication:Non-smoker Start:24-Aug-2018 Instruction Type:Patient Education Patient Instructions Indication:Non-smoker Start:24-Aug-2018 Instruction Type:Provider Instructions for Treatment How to access health informa tion online Indication:Non-smoker Start:13-Jul-2018 Instruction Type:Patient Education How to access health informa tion online - Detail Indication:Non-smoker Start:13-Jul-2018 Instruction Type:Patient Education Patient Instructions Indication:Flashing lights Start:13-Jul-2018 Instruction Type:Provider Instructions for Treatment How to access health informa tion online Indication:Non-smoker Start:21-May-2018 Instruction Type:Patient Education How to access health informa tion online - Detail Indication:Non-smoker Start:21-May-2018 Instruction Type:Patient Education Patient Instructions Indication:Non-smoker Start:21-May-2018 Instruction Type:Provider Instructions for Treatment How to access health informa tion online Indication:Non-smoker Start:01-May-2018 Instruction Type:Patient Education How to access health informa tion online - Detail Indication:Non-smoker Start:01-May-2018 Instruction Type:Patient Education Patient Instructions Indication:Non-smoker Start:01-May-2018 Instruction Type:Provider Instructions for Treatment How to access health informa tion online Indication:Non-smoker Start:02-Apr-2018 Instruction Type:Patient Education How to access health informa tion online - Detail Indication:Non-smoker Start:02-Apr-2018 Instruction Type:Patient Education Patient Instructions Indication:Non-smoker Start:02-Apr-2018 Instruction Type:Provider Instructions for Treatment How to access health informa tion online Indication:Hypertension Start:20-Mar-2018 Instruction Type:Patient Education How to access health informa tion online - Detail Indication:Hypertension Start:20-Mar-2018 Instruction Type:Patient Education Patient Instructions Indication:Hypertension Start:20-Mar-2018 Instruction Type:Provider Instructions for Treatment How to access health informa tion online Indication:Non-smoker Start:23-Feb-2018 Instruction Type:Patient Education How to access health informa tion online Indication:Non-smoker Start:23-Feb-2018 Instruction Type:Patient Education How to access health informa tion online - Detail Indication:Non-smoker Start:23-Feb-2018 Instruction Type:Patient Education Patient Instructions Indication:Non-smoker Start:23-Feb-2018 Instruction Type:Provider Instructions for Treatment [facility]; [facility] Work Phone: Instructions* Name Dates Details Patient Instructions Indication:Non-smoker Start:10-Aug-2020 Instruction Type:Provider Instructions for Treatment How to Access Health Informa tion Online using Patient Portal and [employer] Apps Indication:Non-smoker Start:10-Aug-2020 Instruction Type:Patient Education How to Access Health Informa tion Online using Patient Portal and [employer] Apps Indication:Non-smoker Start:20-Jul-2020 Instruction Type:Patient Education Patient Instructions Indication:Non-smoker Start:20-Jul-2020 Instruction Type:Provider Instructions for Treatment How to Access Health Informa tion Online using Patient Portal and [employer] Apps Indication:Non-smoker Start:29-Jun-2020 Instruction Type:Patient Education Patient Instructions Indication:Non-smoker Start:29-Jun-2020 Instruction Type:Provider Instructions for Treatment How to Access Health Informa tion Online using Patient Portal and [employer] Apps Indication:Non-smoker Start:07-Jun-2020 Instruction Type:Patient Education Patient Instructions Indication:Non-smoker Start:07-Jun-2020 Instruction Type:Provider Instructions for Treatment How to Access Health Informa tion Online using Patient Portal and [employer] Apps Indication:Non-smoker Start:24-May-2020 Instruction Type:Patient Education Patient Instructions Indication:Non-smoker Start:24-May-2020 Instruction Type:Provider Instructions for Treatment Patient Instructions Indication:Non-smoker Start:08-Mar-2020 Instruction Type:Provider Instructions for Treatment How to Access Health Informa tion Online using Patient Portal and [employer] Apps Indication:Non-smoker Start:08-Mar-2020 Instruction Type:Patient Education obesity counseling Indication:Hypertension Start:23-Dec-2019 Instruction Type:Provider Instructions for Treatment How to access health informa tion online Indication:Non-smoker Start:23-Dec-2019 Instruction Type:Patient Education How to access health informa tion online - Detail Indication:Non-smoker Start:23-Dec-2019 Instruction Type:Patient Education Patient Instructions Indication:Non-smoker Start:23-Dec-2019 Instruction Type:Provider Instructions for Treatment How to access health informa tion online Indication:Non-smoker Start:08-Dec-2019 Instruction Type:Patient Education How to access health informa tion online - Detail Indication:Non-smoker Start:08-Dec-2019 Instruction Type:Patient Education Patient Instructions Indication:Non-smoker Start:08-Dec-2019 Instruction Type:Provider Instructions for Treatment How to access health informa tion online Indication:Non-smoker Start:11-Oct-2019 Instruction Type:Patient Education How to access health informa tion online - Detail Indication:Non-smoker Start:11-Oct-2019 Instruction Type:Patient Education Patient Instructions Indication:Non-smoker Start:11-Oct-2019 Instruction Type:Provider Instructions for Treatment How to access health informa tion online - Detail Indication:Non-smoker Start:21-Jul-2019 Instruction Type:Patient Education How to access health informa tion online Indication:Non-smoker Start:21-Jul-2019 Instruction Type:Patient Education Patient Instructions Indication:Non-smoker Start:21-Jul-2019 Instruction Type:Provider Instructions for Treatment How to access health informa tion online - Detail Indication:BMI 31.0-31.9,adult Start:09-Jun-2019 Instruction Type:Patient Education How to access health informa tion online Indication:BMI 31.0-31.9,adult Start:09-Jun-2019 Instruction Type:Patient Education Patient Instructions Indication:BMI 31.0-31.9,adult Start:09-Jun-2019 Instruction Type:Provider Instructions for Treatment How to access health informa tion online Indication:Non-smoker Start:26-Mar-2019 Instruction Type:Patient Education How to access health informa tion online - Detail Indication:Non-smoker Start:26-Mar-2019 Instruction Type:Patient Education Patient Instructions Indication:Non-smoker Start:26-Mar-2019 Instruction Type:Provider Instructions for Treatment How to access health informa tion online Indication:Non-smoker Start:22-Jan-2019 Instruction Type:Patient Education How to access health informa tion online - Detail Indication:Non-smoker Start:22-Jan-2019 Instruction Type:Patient Education Patient Instructions Indication:Non-smoker Start:22-Jan-2019 Instruction Type:Provider Instructions for Treatment How to access health informa tion online Indication:Non-smoker Start:24-Aug-2018 Instruction Type:Patient Education How to access health informa tion online - Detail Indication:Non-smoker Start:24-Aug-2018 Instruction Type:Patient Education Patient Instructions Indication:Non-smoker Start:24-Aug-2018 Instruction Type:Provider Instructions for Treatment How to access health informa tion online Indication:Non-smoker Start:13-Jul-2018 Instruction Type:Patient Education How to access health informa tion online - Detail Indication:Non-smoker Start:13-Jul-2018 Instruction Type:Patient Education Patient Instructions Indication:Flashing lights Start:13-Jul-2018 Instruction Type:Provider Instructions for Treatment How to access health informa tion online Indication:Non-smoker Start:21-May-2018 Instruction Type:Patient Education How to access health informa tion online - Detail Indication:Non-smoker Start:21-May-2018 Instruction Type:Patient Education Patient Instructions Indication:Non-smoker Start:21-May-2018 Instruction Type:Provider Instructions for Treatment How to access health informa tion online Indication:Non-smoker Start:01-May-2018 Instruction Type:Patient Education How to access health informa tion online - Detail Indication:Non-smoker Start:01-May-2018 Instruction Type:Patient Education Patient Instructions Indication:Non-smoker Start:01-May-2018 Instruction Type:Provider Instructions for Treatment How to access health informa tion online Indication:Non-smoker Start:02-Apr-2018 Instruction Type:Patient Education How to access health informa tion online - Detail Indication:Non-smoker Start:02-Apr-2018 Instruction Type:Patient Education Patient Instructions Indication:Non-smoker Start:02-Apr-2018 Instruction Type:Provider Instructions for Treatment How to access health informa tion online Indication:Hypertension Start:20-Mar-2018 Instruction Type:Patient Education How to access health informa tion online - Detail Indication:Hypertension Start:20-Mar-2018 Instruction Type:Patient Education Patient Instructions Indication:Hypertension Start:20-Mar-2018 Instruction Type:Provider Instructions for Treatment How to access health informa tion online Indication:Non-smoker Start:23-Feb-2018 Instruction Type:Patient Education How to access health informa tion online Indication:Non-smoker Start:23-Feb-2018 Instruction Type:Patient Education How to access health informa tion online - Detail Indication:Non-smoker Start:23-Feb-2018 Instruction Type:Patient Education Patient Instructions Indication:Non-smoker Start:23-Feb-2018 Instruction Type:Provider Instructions for Treatment [facility]; [facility] Work Phone: Instructions* Name Dates Details How to Access Health Informa tion Online using Patient Portal and [employer] Apps Indication:Non-smoker Start:31-Aug-2020 Instruction Type:Patient Education Patient Instructions Indication:Non-smoker Start:31-Aug-2020 Instruction Type:Provider Instructions for Treatment Patient Instructions Indication:Non-smoker Start:10-Aug-2020 Instruction Type:Provider Instructions for Treatment How to Access Health Informa tion Online using Patient Portal and [employer] Apps Indication:Non-smoker Start:10-Aug-2020 Instruction Type:Patient Education How to Access Health Informa tion Online using Patient Portal and [employer] Apps Indication:Non-smoker Start:20-Jul-2020 Instruction Type:Patient Education Patient Instructions Indication:Non-smoker Start:20-Jul-2020 Instruction Type:Provider Instructions for Treatment How to Access Health Informa tion Online using Patient Portal and [employer] Apps Indication:Non-smoker Start:29-Jun-2020 Instruction Type:Patient Education Patient Instructions Indication:Non-smoker Start:29-Jun-2020 Instruction Type:Provider Instructions for Treatment How to Access Health Informa tion Online using Patient Portal and [employer] Apps Indication:Non-smoker Start:07-Jun-2020 Instruction Type:Patient Education Patient Instructions Indication:Non-smoker Start:07-Jun-2020 Instruction Type:Provider Instructions for Treatment How to Access Health Informa tion Online using Patient Portal and [employer] Apps Indication:Non-smoker Start:24-May-2020 Instruction Type:Patient Education Patient Instructions Indication:Non-smoker Start:24-May-2020 Instruction Type:Provider Instructions for Treatment Patient Instructions Indication:Non-smoker Start:08-Mar-2020 Instruction Type:Provider Instructions for Treatment How to Access Health Informa tion Online using Patient Portal and [employer] Apps Indication:Non-smoker Start:08-Mar-2020 Instruction Type:Patient Education obesity counseling Indication:Hypertension Start:23-Dec-2019 Instruction Type:Provider Instructions for Treatment How to access health informa tion online Indication:Non-smoker Start:23-Dec-2019 Instruction Type:Patient Education How to access health informa tion online - Detail Indication:Non-smoker Start:23-Dec-2019 Instruction Type:Patient Education Patient Instructions Indication:Non-smoker Start:23-Dec-2019 Instruction Type:Provider Instructions for Treatment How to access health informa tion online Indication:Non-smoker Start:08-Dec-2019 Instruction Type:Patient Education How to access health informa tion online - Detail Indication:Non-smoker Start:08-Dec-2019 Instruction Type:Patient Education Patient Instructions Indication:Non-smoker Start:08-Dec-2019 Instruction Type:Provider Instructions for Treatment How to access health informa tion online Indication:Non-smoker Start:11-Oct-2019 Instruction Type:Patient Education How to access health informa tion online - Detail Indication:Non-smoker Start:11-Oct-2019 Instruction Type:Patient Education Patient Instructions Indication:Non-smoker Start:11-Oct-2019 Instruction Type:Provider Instructions for Treatment How to access health informa tion online - Detail Indication:Non-smoker Start:21-Jul-2019 Instruction Type:Patient Education How to access health informa tion online Indication:Non-smoker Start:21-Jul-2019 Instruction Type:Patient Education Patient Instructions Indication:Non-smoker Start:21-Jul-2019 Instruction Type:Provider Instructions for Treatment How to access health informa tion online - Detail Indication:BMI 31.0-31.9,adult Start:09-Jun-2019 Instruction Type:Patient Education How to access health informa tion online Indication:BMI 31.0-31.9,adult Start:09-Jun-2019 Instruction Type:Patient Education Patient Instructions Indication:BMI 31.0-31.9,adult Start:09-Jun-2019 Instruction Type:Provider Instructions for Treatment How to access health informa tion online Indication:Non-smoker Start:26-Mar-2019 Instruction Type:Patient Education How to access health informa tion online - Detail Indication:Non-smoker Start:26-Mar-2019 Instruction Type:Patient Education Patient Instructions Indication:Non-smoker Start:26-Mar-2019 Instruction Type:Provider Instructions for Treatment How to access health informa tion online Indication:Non-smoker Start:22-Jan-2019 Instruction Type:Patient Education How to access health informa tion online - Detail Indication:Non-smoker Start:22-Jan-2019 Instruction Type:Patient Education Patient Instructions Indication:Non-smoker Start:22-Jan-2019 Instruction Type:Provider Instructions for Treatment How to access health informa tion online Indication:Non-smoker Start:24-Aug-2018 Instruction Type:Patient Education How to access health informa tion online - Detail Indication:Non-smoker Start:24-Aug-2018 Instruction Type:Patient Education Patient Instructions Indication:Non-smoker Start:24-Aug-2018 Instruction Type:Provider Instructions for Treatment How to access health informa tion online Indication:Non-smoker Start:13-Jul-2018 Instruction Type:Patient Education How to access health informa tion online - Detail Indication:Non-smoker Start:13-Jul-2018 Instruction Type:Patient Education Patient Instructions Indication:Flashing lights Start:13-Jul-2018 Instruction Type:Provider Instructions for Treatment How to access health informa tion online Indication:Non-smoker Start:21-May-2018 Instruction Type:Patient Education How to access health informa tion online - Detail Indication:Non-smoker Start:21-May-2018 Instruction Type:Patient Education Patient Instructions Indication:Non-smoker Start:21-May-2018 Instruction Type:Provider Instructions for Treatment How to access health informa tion online Indication:Non-smoker Start:01-May-2018 Instruction Type:Patient Education How to access health informa tion online - Detail Indication:Non-smoker Start:01-May-2018 Instruction Type:Patient Education Patient Instructions Indication:Non-smoker Start:01-May-2018 Instruction Type:Provider Instructions for Treatment How to access health informa tion online Indication:Non-smoker Start:02-Apr-2018 Instruction Type:Patient Education How to access health informa tion online - Detail Indication:Non-smoker Start:02-Apr-2018 Instruction Type:Patient Education Patient Instructions Indication:Non-smoker Start:02-Apr-2018 Instruction Type:Provider Instructions for Treatment How to access health informa tion online Indication:Hypertension Start:20-Mar-2018 Instruction Type:Patient Education How to access health informa tion online - Detail Indication:Hypertension Start:20-Mar-2018 Instruction Type:Patient Education Patient Instructions Indication:Hypertension Start:20-Mar-2018 Instruction Type:Provider Instructions for Treatment How to access health informa tion online Indication:Non-smoker Start:23-Feb-2018 Instruction Type:Patient Education How to access health informa tion online Indication:Non-smoker Start:23-Feb-2018 Instruction Type:Patient Education How to access health informa tion online - Detail Indication:Non-smoker Start:23-Feb-2018 Instruction Type:Patient Education Patient Instructions Indication:Non-smoker Start:23-Feb-2018 Instruction Type:Provider Instructions for Treatment [facility]; [facility] Work Phone: Instructions* Name Dates Details Patient Instructions Indication:BMI 31.0-31.9,adult Start:29-Jan-2021 Instruction Type:Provider Instructions for Treatment How to Access Health Informa tion Online using Patient Portal and [employer] Apps Indication:BMI 31.0-31.9,adult Start:29-Jan-2021 Instruction Type:Patient Education Patient Instructions Indication:Non-smoker Start:11-Dec-2020 Instruction Type:Provider Instructions for Treatment How to Access Health Informa tion Online using Patient Portal and [employer] Apps Indication:Non-smoker Start:11-Dec-2020 Instruction Type:Patient Education How to Access Health Informa tion Online using Patient Portal and [employer] Apps Indication:Non-smoker Start:31-Aug-2020 Instruction Type:Patient Education Patient Instructions Indication:Non-smoker Start:31-Aug-2020 Instruction Type:Provider Instructions for Treatment Patient Instructions Indication:Non-smoker Start:10-Aug-2020 Instruction Type:Provider Instructions for Treatment How to Access Health Informa tion Online using Patient Portal and [employer] Apps Indication:Non-smoker Start:10-Aug-2020 Instruction Type:Patient Education How to Access Health Informa tion Online using Patient Portal and [employer] Apps Indication:Non-smoker Start:20-Jul-2020 Instruction Type:Patient Education Patient Instructions Indication:Non-smoker Start:20-Jul-2020 Instruction Type:Provider Instructions for Treatment How to Access Health Informa tion Online using Patient Portal and [employer] Apps Indication:Non-smoker Start:29-Jun-2020 Instruction Type:Patient Education Patient Instructions Indication:Non-smoker Start:29-Jun-2020 Instruction Type:Provider Instructions for Treatment How to Access Health Informa tion Online using Patient Portal and [employer] Apps Indication:Non-smoker Start:07-Jun-2020 Instruction Type:Patient Education Patient Instructions Indication:Non-smoker Start:07-Jun-2020 Instruction Type:Provider Instructions for Treatment How to Access Health Informa tion Online using Patient Portal and [employer] Apps Indication:Non-smoker Start:24-May-2020 Instruction Type:Patient Education Patient Instructions Indication:Non-smoker Start:24-May-2020 Instruction Type:Provider Instructions for Treatment Patient Instructions Indication:Non-smoker Start:08-Mar-2020 Instruction Type:Provider Instructions for Treatment How to Access Health Informa tion Online using Patient Portal and [employer] Apps Indication:Non-smoker Start:08-Mar-2020 Instruction Type:Patient Education obesity counseling Indication:Hypertension Start:23-Dec-2019 Instruction Type:Provider Instructions for Treatment How to access health informa tion online Indication:Non-smoker Start:23-Dec-2019 Instruction Type:Patient Education How to access health informa tion online - Detail Indication:Non-smoker Start:23-Dec-2019 Instruction Type:Patient Education Patient Instructions Indication:Non-smoker Start:23-Dec-2019 Instruction Type:Provider Instructions for Treatment How to access health informa tion online Indication:Non-smoker Start:08-Dec-2019 Instruction Type:Patient Education How to access health informa tion online - Detail Indication:Non-smoker Start:08-Dec-2019 Instruction Type:Patient Education Patient Instructions Indication:Non-smoker Start:08-Dec-2019 Instruction Type:Provider Instructions for Treatment How to access health informa tion online Indication:Non-smoker Start:11-Oct-2019 Instruction Type:Patient Education How to access health informa tion online - Detail Indication:Non-smoker Start:11-Oct-2019 Instruction Type:Patient Education Patient Instructions Indication:Non-smoker Start:11-Oct-2019 Instruction Type:Provider Instructions for Treatment How to access health informa tion online - Detail Indication:Non-smoker Start:21-Jul-2019 Instruction Type:Patient Education How to access health informa tion online Indication:Non-smoker Start:21-Jul-2019 Instruction Type:Patient Education Patient Instructions Indication:Non-smoker Start:21-Jul-2019 Instruction Type:Provider Instructions for Treatment How to access health informa tion online - Detail Indication:BMI 31.0-31.9,adult Start:09-Jun-2019 Instruction Type:Patient Education How to access health informa tion online Indication:BMI 31.0-31.9,adult Start:09-Jun-2019 Instruction Type:Patient Education Patient Instructions Indication:BMI 31.0-31.9,adult Start:09-Jun-2019 Instruction Type:Provider Instructions for Treatment How to access health informa tion online Indication:Non-smoker Start:26-Mar-2019 Instruction Type:Patient Education How to access health informa tion online - Detail Indication:Non-smoker Start:26-Mar-2019 Instruction Type:Patient Education Patient Instructions Indication:Non-smoker Start:26-Mar-2019 Instruction Type:Provider Instructions for Treatment How to access health informa tion online Indication:Non-smoker Start:22-Jan-2019 Instruction Type:Patient Education How to access health informa tion online - Detail Indication:Non-smoker Start:22-Jan-2019 Instruction Type:Patient Education Patient Instructions Indication:Non-smoker Start:22-Jan-2019 Instruction Type:Provider Instructions for Treatment How to access health informa tion online Indication:Non-smoker Start:24-Aug-2018 Instruction Type:Patient Education How to access health informa tion online - Detail Indication:Non-smoker Start:24-Aug-2018 Instruction Type:Patient Education Patient Instructions Indication:Non-smoker Start:24-Aug-2018 Instruction Type:Provider Instructions for Treatment How to access health informa tion online Indication:Non-smoker Start:13-Jul-2018 Instruction Type:Patient Education How to access health informa tion online - Detail Indication:Non-smoker Start:13-Jul-2018 Instruction Type:Patient Education Patient Instructions Indication:Flashing lights Start:13-Jul-2018 Instruction Type:Provider Instructions for Treatment How to access health informa tion online Indication:Non-smoker Start:21-May-2018 Instruction Type:Patient Education How to access health informa tion online - Detail Indication:Non-smoker Start:21-May-2018 Instruction Type:Patient Education Patient Instructions Indication:Non-smoker Start:21-May-2018 Instruction Type:Provider Instructions for Treatment How to access health informa tion online Indication:Non-smoker Start:01-May-2018 Instruction Type:Patient Education How to access health informa tion online - Detail Indication:Non-smoker Start:01-May-2018 Instruction Type:Patient Education Patient Instructions Indication:Non-smoker Start:01-May-2018 Instruction Type:Provider Instructions for Treatment How to access health informa tion online Indication:Non-smoker Start:02-Apr-2018 Instruction Type:Patient Education How to access health informa tion online - Detail Indication:Non-smoker Start:02-Apr-2018 Instruction Type:Patient Education Patient Instructions Indication:Non-smoker Start:02-Apr-2018 Instruction Type:Provider Instructions for Treatment How to access health informa tion online Indication:Hypertension Start:20-Mar-2018 Instruction Type:Patient Education How to access health informa tion online - Detail Indication:Hypertension Start:20-Mar-2018 Instruction Type:Patient Education Patient Instructions Indication:Hypertension Start:20-Mar-2018 Instruction Type:Provider Instructions for Treatment How to access health informa tion online Indication:Non-smoker Start:23-Feb-2018 Instruction Type:Patient Education How to access health informa tion online Indication:Non-smoker Start:23-Feb-2018 Instruction Type:Patient Education How to access health informa tion online - Detail Indication:Non-smoker Start:23-Feb-2018 Instruction Type:Patient Education Patient Instructions Indication:Non-smoker Start:23-Feb-2018 Instruction Type:Provider Instructions for Treatment [facility]; [facility] Work Phone: Instructions* Name Dates Details Patient Instructions Indication:BMI 31.0-31.9,adult Start:29-Jan-2021 Instruction Type:Provider Instructions for Treatment How to Access Health Informa tion Online using Patient Portal and [employer] Indication:BMI 31.0-31.9,adult Start:29-Jan-2021 Instruction Type:Patient Education Patient Instructions Indication:Non-smoker Start:11-Dec-2020 Instruction Type:Provider Instructions for Treatment How to Access Health Informa tion Online using Patient Portal and [employer] Apps Indication:Non-smoker Start:11-Dec-2020 Instruction Type:Patient Education How to Access Health Informa tion Online using Patient Portal and [employer] Apps Indication:Non-smoker Start:31-Aug-2020 Instruction Type:Patient Education Patient Instructions Indication:Non-smoker Start:31-Aug-2020 Instruction Type:Provider Instructions for Treatment Patient Instructions Indication:Non-smoker Start:10-Aug-2020 Instruction Type:Provider Instructions for Treatment How to Access Health Informa tion Online using Patient Portal and [employer] Apps Indication:Non-smoker Start:10-Aug-2020 Instruction Type:Patient Education How to Access Health Informa tion Online using Patient Portal and [employer] Apps Indication:Non-smoker Start:20-Jul-2020 Instruction Type:Patient Education Patient Instructions Indication:Non-smoker Start:20-Jul-2020 Instruction Type:Provider Instructions for Treatment How to Access Health Informa tion Online using Patient Portal and [employer] Apps Indication:Non-smoker Start:29-Jun-2020 Instruction Type:Patient Education Patient Instructions Indication:Non-smoker Start:29-Jun-2020 Instruction Type:Provider Instructions for Treatment How to Access Health Informa tion Online using Patient Portal and [employer] Apps Indication:Non-smoker Start:07-Jun-2020 Instruction Type:Patient Education Patient Instructions Indication:Non-smoker Start:07-Jun-2020 Instruction Type:Provider Instructions for Treatment How to Access Health Informa tion Online using Patient Portal and [employer] Apps Indication:Non-smoker Start:24-May-2020 Instruction Type:Patient Education Patient Instructions Indication:Non-smoker Start:24-May-2020 Instruction Type:Provider Instructions for Treatment Patient Instructions Indication:Non-smoker Start:08-Mar-2020 Instruction Type:Provider Instructions for Treatment How to Access Health Informa tion Online using Patient Portal and [employer] Apps Indication:Non-smoker Start:08-Mar-2020 Instruction Type:Patient Education obesity counseling Indication:Hypertension Start:23-Dec-2019 Instruction Type:Provider Instructions for Treatment How to access health informa tion online Indication:Non-smoker Start:23-Dec-2019 Instruction Type:Patient Education How to access health informa tion online - Detail Indication:Non-smoker Start:23-Dec-2019 Instruction Type:Patient Education Patient Instructions Indication:Non-smoker Start:23-Dec-2019 Instruction Type:Provider Instructions for Treatment How to access health informa tion online Indication:Non-smoker Start:08-Dec-2019 Instruction Type:Patient Education How to access health informa tion online - Detail Indication:Non-smoker Start:08-Dec-2019 Instruction Type:Patient Education Patient Instructions Indication:Non-smoker Start:08-Dec-2019 Instruction Type:Provider Instructions for Treatment How to access health informa tion online Indication:Non-smoker Start:11-Oct-2019 Instruction Type:Patient Education How to access health informa tion online - Detail Indication:Non-smoker Start:11-Oct-2019 Instruction Type:Patient Education Patient Instructions Indication:Non-smoker Start:11-Oct-2019 Instruction Type:Provider Instructions for Treatment How to access health informa tion online - Detail Indication:Non-smoker Start:21-Jul-2019 Instruction Type:Patient Education How to access health informa tion online Indication:Non-smoker Start:21-Jul-2019 Instruction Type:Patient Education Patient Instructions Indication:Non-smoker Start:21-Jul-2019 Instruction Type:Provider Instructions for Treatment How to access health informa tion online - Detail Indication:BMI 31.0-31.9,adult Start:09-Jun-2019 Instruction Type:Patient Education How to access health informa tion online Indication:BMI 31.0-31.9,adult Start:09-Jun-2019 Instruction Type:Patient Education Patient Instructions Indication:BMI 31.0-31.9,adult Start:09-Jun-2019 Instruction Type:Provider Instructions for Treatment How to access health informa tion online Indication:Non-smoker Start:26-Mar-2019 Instruction Type:Patient Education How to access health informa tion online - Detail Indication:Non-smoker Start:26-Mar-2019 Instruction Type:Patient Education Patient Instructions Indication:Non-smoker Start:26-Mar-2019 Instruction Type:Provider Instructions for Treatment How to access health informa tion online Indication:Non-smoker Start:22-Jan-2019 Instruction Type:Patient Education How to access health informa tion online - Detail Indication:Non-smoker Start:22-Jan-2019 Instruction Type:Patient Education Patient Instructions Indication:Non-smoker Start:22-Jan-2019 Instruction Type:Provider Instructions for Treatment How to access health informa tion online Indication:Non-smoker Start:24-Aug-2018 Instruction Type:Patient Education How to access health informa tion online - Detail Indication:Non-smoker Start:24-Aug-2018 Instruction Type:Patient Education Patient Instructions Indication:Non-smoker Start:24-Aug-2018 Instruction Type:Provider Instructions for Treatment How to access health informa tion online Indication:Non-smoker Start:13-Jul-2018 Instruction Type:Patient Education How to access health informa tion online - Detail Indication:Non-smoker Start:13-Jul-2018 Instruction Type:Patient Education Patient Instructions Indication:Flashing lights Start:13-Jul-2018 Instruction Type:Provider Instructions for Treatment How to access health informa tion online Indication:Non-smoker Start:21-May-2018 Instruction Type:Patient Education How to access health informa tion online - Detail Indication:Non-smoker Start:21-May-2018 Instruction Type:Patient Education Patient Instructions Indication:Non-smoker Start:21-May-2018 Instruction Type:Provider Instructions for Treatment How to access health informa tion online Indication:Non-smoker Start:01-May-2018 Instruction Type:Patient Education How to access health informa tion online - Detail Indication:Non-smoker Start:01-May-2018 Instruction Type:Patient Education Patient Instructions Indication:Non-smoker Start:01-May-2018 Instruction Type:Provider Instructions for Treatment How to access health informa tion online Indication:Non-smoker Start:02-Apr-2018 Instruction Type:Patient Education How to access health informa tion online - Detail Indication:Non-smoker Start:02-Apr-2018 Instruction Type:Patient Education Patient Instructions Indication:Non-smoker Start:02-Apr-2018 Instruction Type:Provider Instructions for Treatment How to access health informa tion online Indication:Hypertension Start:20-Mar-2018 Instruction Type:Patient Education How to access health informa tion online - Detail Indication:Hypertension Start:20-Mar-2018 Instruction Type:Patient Education Patient Instructions Indication:Hypertension Start:20-Mar-2018 Instruction Type:Provider Instructions for Treatment How to access health informa tion online Indication:Non-smoker Start:23-Feb-2018 Instruction Type:Patient Education How to access health informa tion online Indication:Non-smoker Start:23-Feb-2018 Instruction Type:Patient Education How to access health informa tion online - Detail Indication:Non-smoker Start:23-Feb-2018 Instruction Type:Patient Education Patient Instructions Indication:Non-smoker Start:23-Feb-2018 Instruction Type:Provider Instructions for Treatment [facility]; [facility] Work Phone: Instructions* Name Dates Details Patient Instructions Indication:Non-smoker Start:16-May-2021 Instruction Type:Provider Instructions for Treatment How to Access Health Informa tion Online using Patient Portal and [employer] Apps Indication:Non-smoker Start:16-May-2021 Instruction Type:Patient Education Patient Instructions Indication:BMI 31.0-31.9,adult Start:29-Jan-2021 Instruction Type:Provider Instructions for Treatment How to Access Health Informa tion Online using Patient Portal and [employer] Apps Indication:BMI 31.0-31.9,adult Start:29-Jan-2021 Instruction Type:Patient Education Patient Instructions Indication:Non-smoker Start:11-Dec-2020 Instruction Type:Provider Instructions for Treatment How to Access Health Informa tion Online using Patient Portal and [employer] Apps Indication:Non-smoker Start:11-Dec-2020 Instruction Type:Patient Education How to Access Health Informa tion Online using Patient Portal and [employer] Apps Indication:Non-smoker Start:31-Aug-2020 Instruction Type:Patient Education Patient Instructions Indication:Non-smoker Start:31-Aug-2020 Instruction Type:Provider Instructions for Treatment Patient Instructions Indication:Non-smoker Start:10-Aug-2020 Instruction Type:Provider Instructions for Treatment How to Access Health Informa tion Online using Patient Portal and [employer] Apps Indication:Non-smoker Start:10-Aug-2020 Instruction Type:Patient Education How to Access Health Informa tion Online using Patient Portal and [employer] Apps Indication:Non-smoker Start:20-Jul-2020 Instruction Type:Patient Education Patient Instructions Indication:Non-smoker Start:20-Jul-2020 Instruction Type:Provider Instructions for Treatment How to Access Health Informa tion Online using Patient Portal and [employer] Apps Indication:Non-smoker Start:29-Jun-2020 Instruction Type:Patient Education Patient Instructions Indication:Non-smoker Start:29-Jun-2020 Instruction Type:Provider Instructions for Treatment How to Access Health Informa tion Online using Patient Portal and [employer] Apps Indication:Non-smoker Start:07-Jun-2020 Instruction Type:Patient Education Patient Instructions Indication:Non-smoker Start:07-Jun-2020 Instruction Type:Provider Instructions for Treatment How to Access Health Informa tion Online using Patient Portal and [employer] Apps Indication:Non-smoker Start:24-May-2020 Instruction Type:Patient Education Patient Instructions Indication:Non-smoker Start:24-May-2020 Instruction Type:Provider Instructions for Treatment Patient Instructions Indication:Non-smoker Start:08-Mar-2020 Instruction Type:Provider Instructions for Treatment How to Access Health Informa tion Online using Patient Portal and [employer] Apps Indication:Non-smoker Start:08-Mar-2020 Instruction Type:Patient Education obesity counseling Indication:Hypertension Start:23-Dec-2019 Instruction Type:Provider Instructions for Treatment How to access health informa tion online Indication:Non-smoker Start:23-Dec-2019 Instruction Type:Patient Education How to access health informa tion online - Detail Indication:Non-smoker Start:23-Dec-2019 Instruction Type:Patient Education Patient Instructions Indication:Non-smoker Start:23-Dec-2019 Instruction Type:Provider Instructions for Treatment How to access health informa tion online Indication:Non-smoker Start:08-Dec-2019 Instruction Type:Patient Education How to access health informa tion online - Detail Indication:Non-smoker Start:08-Dec-2019 Instruction Type:Patient Education Patient Instructions Indication:Non-smoker Start:08-Dec-2019 Instruction Type:Provider Instructions for Treatment How to access health informa tion online Indication:Non-smoker Start:11-Oct-2019 Instruction Type:Patient Education How to access health informa tion online - Detail Indication:Non-smoker Start:11-Oct-2019 Instruction Type:Patient Education Patient Instructions Indication:Non-smoker Start:11-Oct-2019 Instruction Type:Provider Instructions for Treatment How to access health informa tion online - Detail Indication:Non-smoker Start:21-Jul-2019 Instruction Type:Patient Education How to access health informa tion online Indication:Non-smoker Start:21-Jul-2019 Instruction Type:Patient Education Patient Instructions Indication:Non-smoker Start:21-Jul-2019 Instruction Type:Provider Instructions for Treatment How to access health informa tion online - Detail Indication:BMI 31.0-31.9,adult Start:09-Jun-2019 Instruction Type:Patient Education How to access health informa tion online Indication:BMI 31.0-31.9,adult Start:09-Jun-2019 Instruction Type:Patient Education Patient Instructions Indication:BMI 31.0-31.9,adult Start:09-Jun-2019 Instruction Type:Provider Instructions for Treatment How to access health informa tion online Indication:Non-smoker Start:26-Mar-2019 Instruction Type:Patient Education How to access health informa tion online - Detail Indication:Non-smoker Start:26-Mar-2019 Instruction Type:Patient Education Patient Instructions Indication:Non-smoker Start:26-Mar-2019 Instruction Type:Provider Instructions for Treatment How to access health informa tion online Indication:Non-smoker Start:22-Jan-2019 Instruction Type:Patient Education How to access health informa tion online - Detail Indication:Non-smoker Start:22-Jan-2019 Instruction Type:Patient Education Patient Instructions Indication:Non-smoker Start:22-Jan-2019 Instruction Type:Provider Instructions for Treatment How to access health informa tion online Indication:Non-smoker Start:24-Aug-2018 Instruction Type:Patient Education How to access health informa tion online - Detail Indication:Non-smoker Start:24-Aug-2018 Instruction Type:Patient Education Patient Instructions Indication:Non-smoker Start:24-Aug-2018 Instruction Type:Provider Instructions for Treatment How to access health informa tion online Indication:Non-smoker Start:13-Jul-2018 Instruction Type:Patient Education How to access health informa tion online - Detail Indication:Non-smoker Start:13-Jul-2018 Instruction Type:Patient Education Patient Instructions Indication:Flashing lights Start:13-Jul-2018 Instruction Type:Provider Instructions for Treatment How to access health informa tion online Indication:Non-smoker Start:21-May-2018 Instruction Type:Patient Education How to access health informa tion online - Detail Indication:Non-smoker Start:21-May-2018 Instruction Type:Patient Education Patient Instructions Indication:Non-smoker Start:21-May-2018 Instruction Type:Provider Instructions for Treatment How to access health informa tion online Indication:Non-smoker Start:01-May-2018 Instruction Type:Patient Education How to access health informa tion online - Detail Indication:Non-smoker Start:01-May-2018 Instruction Type:Patient Education Patient Instructions Indication:Non-smoker Start:01-May-2018 Instruction Type:Provider Instructions for Treatment How to access health informa tion online Indication:Non-smoker Start:02-Apr-2018 Instruction Type:Patient Education How to access health informa tion online - Detail Indication:Non-smoker Start:02-Apr-2018 Instruction Type:Patient Education Patient Instructions Indication:Non-smoker Start:02-Apr-2018 Instruction Type:Provider Instructions for Treatment How to access health informa tion online Indication:Hypertension Start:20-Mar-2018 Instruction Type:Patient Education How to access health informa tion online - Detail Indication:Hypertension Start:20-Mar-2018 Instruction Type:Patient Education Patient Instructions Indication:Hypertension Start:20-Mar-2018 Instruction Type:Provider Instructions for Treatment How to access health informa tion online Indication:Non-smoker Start:23-Feb-2018 Instruction Type:Patient Education How to access health informa tion online Indication:Non-smoker Start:23-Feb-2018 Instruction Type:Patient Education How to access health informa tion online - Detail Indication:Non-smoker Start:23-Feb-2018 Instruction Type:Patient Education Patient Instructions Indication:Non-smoker Start:23-Feb-2018 Instruction Type:Provider Instructions for Treatment [facility]; [facility] Work Phone: Instructions* Name Dates Details Patient Instructions Indication:BMI 32.0-32.9,adult Start:11-Jun-2021 Instruction Type:Provider Instructions for Treatment How to Access Health Informa tion Online using Patient Portal and [employer] Apps Indication:BMI 32.0-32.9,adult Start:11-Jun-2021 Instruction Type:Patient Education Patient Instructions Indication:Non-smoker Start:16-May-2021 Instruction Type:Provider Instructions for Treatment How to Access Health Informa tion Online using Patient Portal and [employer] Apps Indication:Non-smoker Start:16-May-2021 Instruction Type:Patient Education Patient Instructions Indication:BMI 31.0-31.9,adult Start:29-Jan-2021 Instruction Type:Provider Instructions for Treatment How to Access Health Informa tion Online using Patient Portal and [employer] Apps Indication:BMI 31.0-31.9,adult Start:29-Jan-2021 Instruction Type:Patient Education Patient Instructions Indication:Non-smoker Start:11-Dec-2020 Instruction Type:Provider Instructions for Treatment How to Access Health Informa tion Online using Patient Portal and [employer] Apps Indication:Non-smoker Start:11-Dec-2020 Instruction Type:Patient Education How to Access Health Informa tion Online using Patient Portal and [employer] Apps Indication:Non-smoker Start:31-Aug-2020 Instruction Type:Patient Education Patient Instructions Indication:Non-smoker Start:31-Aug-2020 Instruction Type:Provider Instructions for Treatment Patient Instructions Indication:Non-smoker Start:10-Aug-2020 Instruction Type:Provider Instructions for Treatment How to Access Health Informa tion Online using Patient Portal and [employer] Apps Indication:Non-smoker Start:10-Aug-2020 Instruction Type:Patient Education How to Access Health Informa tion Online using Patient Portal and [employer] Apps Indication:Non-smoker Start:20-Jul-2020 Instruction Type:Patient Education Patient Instructions Indication:Non-smoker Start:20-Jul-2020 Instruction Type:Provider Instructions for Treatment How to Access Health Informa tion Online using Patient Portal and [employer] Apps Indication:Non-smoker Start:29-Jun-2020 Instruction Type:Patient Education Patient Instructions Indication:Non-smoker Start:29-Jun-2020 Instruction Type:Provider Instructions for Treatment How to Access Health Informa tion Online using Patient Portal and [employer] Apps Indication:Non-smoker Start:07-Jun-2020 Instruction Type:Patient Education Patient Instructions Indication:Non-smoker Start:07-Jun-2020 Instruction Type:Provider Instructions for Treatment How to Access Health Informa tion Online using Patient Portal and [employer] Apps Indication:Non-smoker Start:24-May-2020 Instruction Type:Patient Education Patient Instructions Indication:Non-smoker Start:24-May-2020 Instruction Type:Provider Instructions for Treatment Patient Instructions Indication:Non-smoker Start:08-Mar-2020 Instruction Type:Provider Instructions for Treatment How to Access Health Informa tion Online using Patient Portal and [employer] Apps Indication:Non-smoker Start:08-Mar-2020 Instruction Type:Patient Education obesity counseling Indication:Hypertension Start:23-Dec-2019 Instruction Type:Provider Instructions for Treatment How to access health informa tion online Indication:Non-smoker Start:23-Dec-2019 Instruction Type:Patient Education How to access health informa tion online - Detail Indication:Non-smoker Start:23-Dec-2019 Instruction Type:Patient Education Patient Instructions Indication:Non-smoker Start:23-Dec-2019 Instruction Type:Provider Instructions for Treatment How to access health informa tion online Indication:Non-smoker Start:08-Dec-2019 Instruction Type:Patient Education How to access health informa tion online - Detail Indication:Non-smoker Start:08-Dec-2019 Instruction Type:Patient Education Patient Instructions Indication:Non-smoker Start:08-Dec-2019 Instruction Type:Provider Instructions for Treatment How to access health informa tion online Indication:Non-smoker Start:11-Oct-2019 Instruction Type:Patient Education How to access health informa tion online - Detail Indication:Non-smoker Start:11-Oct-2019 Instruction Type:Patient Education Patient Instructions Indication:Non-smoker Start:11-Oct-2019 Instruction Type:Provider Instructions for Treatment How to access health informa tion online - Detail Indication:Non-smoker Start:21-Jul-2019 Instruction Type:Patient Education How to access health informa tion online Indication:Non-smoker Start:21-Jul-2019 Instruction Type:Patient Education Patient Instructions Indication:Non-smoker Start:21-Jul-2019 Instruction Type:Provider Instructions for Treatment How to access health informa tion online - Detail Indication:BMI 31.0-31.9,adult Start:09-Jun-2019 Instruction Type:Patient Education How to access health informa tion online Indication:BMI 31.0-31.9,adult Start:09-Jun-2019 Instruction Type:Patient Education Patient Instructions Indication:BMI 31.0-31.9,adult Start:09-Jun-2019 Instruction Type:Provider Instructions for Treatment How to access health informa tion online Indication:Non-smoker Start:26-Mar-2019 Instruction Type:Patient Education How to access health informa tion online - Detail Indication:Non-smoker Start:26-Mar-2019 Instruction Type:Patient Education Patient Instructions Indication:Non-smoker Start:26-Mar-2019 Instruction Type:Provider Instructions for Treatment How to access health informa tion online Indication:Non-smoker Start:22-Jan-2019 Instruction Type:Patient Education How to access health informa tion online - Detail Indication:Non-smoker Start:22-Jan-2019 Instruction Type:Patient Education Patient Instructions Indication:Non-smoker Start:22-Jan-2019 Instruction Type:Provider Instructions for Treatment How to access health informa tion online Indication:Non-smoker Start:24-Aug-2018 Instruction Type:Patient Education How to access health informa tion online - Detail Indication:Non-smoker Start:24-Aug-2018 Instruction Type:Patient Education Patient Instructions Indication:Non-smoker Start:24-Aug-2018 Instruction Type:Provider Instructions for Treatment How to access health informa tion online Indication:Non-smoker Start:13-Jul-2018 Instruction Type:Patient Education How to access health informa tion online - Detail Indication:Non-smoker Start:13-Jul-2018 Instruction Type:Patient Education Patient Instructions Indication:Flashing lights Start:13-Jul-2018 Instruction Type:Provider Instructions for Treatment How to access health informa tion online Indication:Non-smoker Start:21-May-2018 Instruction Type:Patient Education How to access health informa tion online - Detail Indication:Non-smoker Start:21-May-2018 Instruction Type:Patient Education Patient Instructions Indication:Non-smoker Start:21-May-2018 Instruction Type:Provider Instructions for Treatment How to access health informa tion online Indication:Non-smoker Start:01-May-2018 Instruction Type:Patient Education How to access health informa tion online - Detail Indication:Non-smoker Start:01-May-2018 Instruction Type:Patient Education Patient Instructions Indication:Non-smoker Start:01-May-2018 Instruction Type:Provider Instructions for Treatment How to access health informa tion online Indication:Non-smoker Start:02-Apr-2018 Instruction Type:Patient Education How to access health informa tion online - Detail Indication:Non-smoker Start:02-Apr-2018 Instruction Type:Patient Education Patient Instructions Indication:Non-smoker Start:02-Apr-2018 Instruction Type:Provider Instructions for Treatment How to access health informa tion online Indication:Hypertension Start:20-Mar-2018 Instruction Type:Patient Education How to access health informa tion online - Detail Indication:Hypertension Start:20-Mar-2018 Instruction Type:Patient Education Patient Instructions Indication:Hypertension Start:20-Mar-2018 Instruction Type:Provider Instructions for Treatment How to access health informa tion online Indication:Non-smoker Start:23-Feb-2018 Instruction Type:Patient Education How to access health informa tion online Indication:Non-smoker Start:23-Feb-2018 Instruction Type:Patient Education How to access health informa tion online - Detail Indication:Non-smoker Start:23-Feb-2018 Instruction Type:Patient Education Patient Instructions Indication:Non-smoker Start:23-Feb-2018 Instruction Type:Provider Instructions for Treatment [facility]; [facility] Work Phone: Instructions* Name Dates Details Patient Instructions Indication:Non-smoker Start:16-Aug-2021 Instruction Type:Provider Instructions for Treatment How to Access Health Informa tion Online using Patient Portal and [employer] Apps Indication:Non-smoker Start:16-Aug-2021 Instruction Type:Patient Education Patient Instructions Indication:BMI 32.0-32.9,adult Start:11-Jun-2021 Instruction Type:Provider Instructions for Treatment How to Access Health Informa tion Online using Patient Portal and [employer] Apps Indication:BMI 32.0-32.9,adult Start:11-Jun-2021 Instruction Type:Patient Education Patient Instructions Indication:Non-smoker Start:16-May-2021 Instruction Type:Provider Instructions for Treatment How to Access Health Informa tion Online using Patient Portal and [employer] Apps Indication:Non-smoker Start:16-May-2021 Instruction Type:Patient Education Patient Instructions Indication:BMI 31.0-31.9,adult Start:29-Jan-2021 Instruction Type:Provider Instructions for Treatment How to Access Health Informa tion Online using Patient Portal and [employer] Apps Indication:BMI 31.0-31.9,adult Start:29-Jan-2021 Instruction Type:Patient Education Patient Instructions Indication:Non-smoker Start:11-Dec-2020 Instruction Type:Provider Instructions for Treatment How to Access Health Informa tion Online using Patient Portal and [employer] Apps Indication:Non-smoker Start:11-Dec-2020 Instruction Type:Patient Education How to Access Health Informa tion Online using Patient Portal and [employer] Apps Indication:Non-smoker Start:31-Aug-2020 Instruction Type:Patient Education Patient Instructions Indication:Non-smoker Start:31-Aug-2020 Instruction Type:Provider Instructions for Treatment Patient Instructions Indication:Non-smoker Start:10-Aug-2020 Instruction Type:Provider Instructions for Treatment How to Access Health Informa tion Online using Patient Portal and [employer] Apps Indication:Non-smoker Start:10-Aug-2020 Instruction Type:Patient Education How to Access Health Informa tion Online using Patient Portal and [employer] Apps Indication:Non-smoker Start:20-Jul-2020 Instruction Type:Patient Education Patient Instructions Indication:Non-smoker Start:20-Jul-2020 Instruction Type:Provider Instructions for Treatment How to Access Health Informa tion Online using Patient Portal and [employer] Apps Indication:Non-smoker Start:29-Jun-2020 Instruction Type:Patient Education Patient Instructions Indication:Non-smoker Start:29-Jun-2020 Instruction Type:Provider Instructions for Treatment How to Access Health Informa tion Online using Patient Portal and [employer] Apps Indication:Non-smoker Start:07-Jun-2020 Instruction Type:Patient Education Patient Instructions Indication:Non-smoker Start:07-Jun-2020 Instruction Type:Provider Instructions for Treatment How to Access Health Informa tion Online using Patient Portal and [employer] Apps Indication:Non-smoker Start:24-May-2020 Instruction Type:Patient Education Patient Instructions Indication:Non-smoker Start:24-May-2020 Instruction Type:Provider Instructions for Treatment Patient Instructions Indication:Non-smoker Start:08-Mar-2020 Instruction Type:Provider Instructions for Treatment How to Access Health Informa tion Online using Patient Portal and [employer] Apps Indication:Non-smoker Start:08-Mar-2020 Instruction Type:Patient Education obesity counseling Indication:Hypertension Start:23-Dec-2019 Instruction Type:Provider Instructions for Treatment How to access health informa tion online Indication:Non-smoker Start:23-Dec-2019 Instruction Type:Patient Education How to access health informa tion online - Detail Indication:Non-smoker Start:23-Dec-2019 Instruction Type:Patient Education Patient Instructions Indication:Non-smoker Start:23-Dec-2019 Instruction Type:Provider Instructions for Treatment How to access health informa tion online Indication:Non-smoker Start:08-Dec-2019 Instruction Type:Patient Education How to access health informa tion online - Detail Indication:Non-smoker Start:08-Dec-2019 Instruction Type:Patient Education Patient Instructions Indication:Non-smoker Start:08-Dec-2019 Instruction Type:Provider Instructions for Treatment How to access health informa tion online Indication:Non-smoker Start:11-Oct-2019 Instruction Type:Patient Education How to access health informa tion online - Detail Indication:Non-smoker Start:11-Oct-2019 Instruction Type:Patient Education Patient Instructions Indication:Non-smoker Start:11-Oct-2019 Instruction Type:Provider Instructions for Treatment How to access health informa tion online - Detail Indication:Non-smoker Start:21-Jul-2019 Instruction Type:Patient Education How to access health informa tion online Indication:Non-smoker Start:21-Jul-2019 Instruction Type:Patient Education Patient Instructions Indication:Non-smoker Start:21-Jul-2019 Instruction Type:Provider Instructions for Treatment How to access health informa tion online - Detail Indication:BMI 31.0-31.9,adult Start:09-Jun-2019 Instruction Type:Patient Education How to access health informa tion online Indication:BMI 31.0-31.9,adult Start:09-Jun-2019 Instruction Type:Patient Education Patient Instructions Indication:BMI 31.0-31.9,adult Start:09-Jun-2019 Instruction Type:Provider Instructions for Treatment How to access health informa tion online Indication:Non-smoker Start:26-Mar-2019 Instruction Type:Patient Education How to access health informa tion online - Detail Indication:Non-smoker Start:26-Mar-2019 Instruction Type:Patient Education Patient Instructions Indication:Non-smoker Start:26-Mar-2019 Instruction Type:Provider Instructions for Treatment How to access health informa tion online Indication:Non-smoker Start:22-Jan-2019 Instruction Type:Patient Education How to access health informa tion online - Detail Indication:Non-smoker Start:22-Jan-2019 Instruction Type:Patient Education Patient Instructions Indication:Non-smoker Start:22-Jan-2019 Instruction Type:Provider Instructions for Treatment How to access health informa tion online Indication:Non-smoker Start:24-Aug-2018 Instruction Type:Patient Education How to access health informa tion online - Detail Indication:Non-smoker Start:24-Aug-2018 Instruction Type:Patient Education Patient Instructions Indication:Non-smoker Start:24-Aug-2018 Instruction Type:Provider Instructions for Treatment How to access health informa tion online Indication:Non-smoker Start:13-Jul-2018 Instruction Type:Patient Education How to access health informa tion online - Detail Indication:Non-smoker Start:13-Jul-2018 Instruction Type:Patient Education Patient Instructions Indication:Flashing lights Start:13-Jul-2018 Instruction Type:Provider Instructions for Treatment How to access health informa tion online Indication:Non-smoker Start:21-May-2018 Instruction Type:Patient Education How to access health informa tion online - Detail Indication:Non-smoker Start:21-May-2018 Instruction Type:Patient Education Patient Instructions Indication:Non-smoker Start:21-May-2018 Instruction Type:Provider Instructions for Treatment How to access health informa tion online Indication:Non-smoker Start:01-May-2018 Instruction Type:Patient Education How to access health informa tion online - Detail Indication:Non-smoker Start:01-May-2018 Instruction Type:Patient Education Patient Instructions Indication:Non-smoker Start:01-May-2018 Instruction Type:Provider Instructions for Treatment How to access health informa tion online Indication:Non-smoker Start:02-Apr-2018 Instruction Type:Patient Education How to access health informa tion online - Detail Indication:Non-smoker Start:02-Apr-2018 Instruction Type:Patient Education Patient Instructions Indication:Non-smoker Start:02-Apr-2018 Instruction Type:Provider Instructions for Treatment How to access health informa tion online Indication:Hypertension Start:20-Mar-2018 Instruction Type:Patient Education How to access health informa tion online - Detail Indication:Hypertension Start:20-Mar-2018 Instruction Type:Patient Education Patient Instructions Indication:Hypertension Start:20-Mar-2018 Instruction Type:Provider Instructions for Treatment How to access health informa tion online Indication:Non-smoker Start:23-Feb-2018 Instruction Type:Patient Education How to access health informa tion online Indication:Non-smoker Start:23-Feb-2018 Instruction Type:Patient Education How to access health informa tion online - Detail Indication:Non-smoker Start:23-Feb-2018 Instruction Type:Patient Education Patient Instructions Indication:Non-smoker Start:23-Feb-2018 Instruction Type:Provider Instructions for Treatment [facility]; [facility] Work Phone: Instructions* Name Dates Details Patient Instructions Indication:BMI 32.0-32.9,adult Start:07-Nov-2021 Instruction Type:Provider Instructions for Treatment How to Access Health Informa tion Online using Patient Portal and [employer] Apps Indication:BMI 32.0-32.9,adult Start:07-Nov-2021 Instruction Type:Patient Education Patient Instructions Indication:Non-smoker Start:16-Aug-2021 Instruction Type:Provider Instructions for Treatment How to Access Health Informa tion Online using Patient Portal and [employer] Apps Indication:Non-smoker Start:16-Aug-2021 Instruction Type:Patient Education Patient Instructions Indication:BMI 32.0-32.9,adult Start:11-Jun-2021 Instruction Type:Provider Instructions for Treatment How to Access Health Informa tion Online using Patient Portal and [employer] Apps Indication:BMI 32.0-32.9,adult Start:11-Jun-2021 Instruction Type:Patient Education Patient Instructions Indication:Non-smoker Start:16-May-2021 Instruction Type:Provider Instructions for Treatment How to Access Health Informa tion Online using Patient Portal and [employer] Apps Indication:Non-smoker Start:16-May-2021 Instruction Type:Patient Education Patient Instructions Indication:BMI 31.0-31.9,adult Start:29-Jan-2021 Instruction Type:Provider Instructions for Treatment How to Access Health Informa tion Online using Patient Portal and [employer] Apps Indication:BMI 31.0-31.9,adult Start:29-Jan-2021 Instruction Type:Patient Education Patient Instructions Indication:Non-smoker Start:11-Dec-2020 Instruction Type:Provider Instructions for Treatment How to Access Health Informa tion Online using Patient Portal and [employer] Apps Indication:Non-smoker Start:11-Dec-2020 Instruction Type:Patient Education How to Access Health Informa tion Online using Patient Portal and [employer] Apps Indication:Non-smoker Start:31-Aug-2020 Instruction Type:Patient Education Patient Instructions Indication:Non-smoker Start:31-Aug-2020 Instruction Type:Provider Instructions for Treatment Patient Instructions Indication:Non-smoker Start:10-Aug-2020 Instruction Type:Provider Instructions for Treatment How to Access Health Informa tion Online using Patient Portal and [employer] Apps Indication:Non-smoker Start:10-Aug-2020 Instruction Type:Patient Education How to Access Health Informa tion Online using Patient Portal and [employer] Apps Indication:Non-smoker Start:20-Jul-2020 Instruction Type:Patient Education Patient Instructions Indication:Non-smoker Start:20-Jul-2020 Instruction Type:Provider Instructions for Treatment How to Access Health Informa tion Online using Patient Portal and [employer] Apps Indication:Non-smoker Start:29-Jun-2020 Instruction Type:Patient Education Patient Instructions Indication:Non-smoker Start:29-Jun-2020 Instruction Type:Provider Instructions for Treatment How to Access Health Informa tion Online using Patient Portal and [employer] Apps Indication:Non-smoker Start:07-Jun-2020 Instruction Type:Patient Education Patient Instructions Indication:Non-smoker Start:07-Jun-2020 Instruction Type:Provider Instructions for Treatment How to Access Health Informa tion Online using Patient Portal and [employer] Apps Indication:Non-smoker Start:24-May-2020 Instruction Type:Patient Education Patient Instructions Indication:Non-smoker Start:24-May-2020 Instruction Type:Provider Instructions for Treatment Patient Instructions Indication:Non-smoker Start:08-Mar-2020 Instruction Type:Provider Instructions for Treatment How to Access Health Informa tion Online using Patient Portal and [employer] Apps Indication:Non-smoker Start:08-Mar-2020 Instruction Type:Patient Education obesity counseling Indication:Hypertension Start:23-Dec-2019 Instruction Type:Provider Instructions for Treatment How to access health informa tion online Indication:Non-smoker Start:23-Dec-2019 Instruction Type:Patient Education How to access health informa tion online - Detail Indication:Non-smoker Start:23-Dec-2019 Instruction Type:Patient Education Patient Instructions Indication:Non-smoker Start:23-Dec-2019 Instruction Type:Provider Instructions for Treatment How to access health informa tion online Indication:Non-smoker Start:08-Dec-2019 Instruction Type:Patient Education How to access health informa tion online - Detail Indication:Non-smoker Start:08-Dec-2019 Instruction Type:Patient Education Patient Instructions Indication:Non-smoker Start:08-Dec-2019 Instruction Type:Provider Instructions for Treatment How to access health informa tion online Indication:Non-smoker Start:11-Oct-2019 Instruction Type:Patient Education How to access health informa tion online - Detail Indication:Non-smoker Start:11-Oct-2019 Instruction Type:Patient Education Patient Instructions Indication:Non-smoker Start:11-Oct-2019 Instruction Type:Provider Instructions for Treatment How to access health informa tion online - Detail Indication:Non-smoker Start:21-Jul-2019 Instruction Type:Patient Education How to access health informa tion online Indication:Non-smoker Start:21-Jul-2019 Instruction Type:Patient Education Patient Instructions Indication:Non-smoker Start:21-Jul-2019 Instruction Type:Provider Instructions for Treatment How to access health informa tion online - Detail Indication:BMI 31.0-31.9,adult Start:09-Jun-2019 Instruction Type:Patient Education How to access health informa tion online Indication:BMI 31.0-31.9,adult Start:09-Jun-2019 Instruction Type:Patient Education Patient Instructions Indication:BMI 31.0-31.9,adult Start:09-Jun-2019 Instruction Type:Provider Instructions for Treatment How to access health informa tion online Indication:Non-smoker Start:26-Mar-2019 Instruction Type:Patient Education How to access health informa tion online - Detail Indication:Non-smoker Start:26-Mar-2019 Instruction Type:Patient Education Patient Instructions Indication:Non-smoker Start:26-Mar-2019 Instruction Type:Provider Instructions for Treatment How to access health informa tion online Indication:Non-smoker Start:22-Jan-2019 Instruction Type:Patient Education How to access health informa tion online - Detail Indication:Non-smoker Start:22-Jan-2019 Instruction Type:Patient Education Patient Instructions Indication:Non-smoker Start:22-Jan-2019 Instruction Type:Provider Instructions for Treatment How to access health informa tion online Indication:Non-smoker Start:24-Aug-2018 Instruction Type:Patient Education How to access health informa tion online - Detail Indication:Non-smoker Start:24-Aug-2018 Instruction Type:Patient Education Patient Instructions Indication:Non-smoker Start:24-Aug-2018 Instruction Type:Provider Instructions for Treatment How to access health informa tion online Indication:Non-smoker Start:13-Jul-2018 Instruction Type:Patient Education How to access health informa tion online - Detail Indication:Non-smoker Start:13-Jul-2018 Instruction Type:Patient Education Patient Instructions Indication:Flashing lights Start:13-Jul-2018 Instruction Type:Provider Instructions for Treatment How to access health informa tion online Indication:Non-smoker Start:21-May-2018 Instruction Type:Patient Education How to access health informa tion online - Detail Indication:Non-smoker Start:21-May-2018 Instruction Type:Patient Education Patient Instructions Indication:Non-smoker Start:21-May-2018 Instruction Type:Provider Instructions for Treatment How to access health informa tion online Indication:Non-smoker Start:01-May-2018 Instruction Type:Patient Education How to access health informa tion online - Detail Indication:Non-smoker Start:01-May-2018 Instruction Type:Patient Education Patient Instructions Indication:Non-smoker Start:01-May-2018 Instruction Type:Provider Instructions for Treatment How to access health informa tion online Indication:Non-smoker Start:02-Apr-2018 Instruction Type:Patient Education How to access health informa tion online - Detail Indication:Non-smoker Start:02-Apr-2018 Instruction Type:Patient Education Patient Instructions Indication:Non-smoker Start:02-Apr-2018 Instruction Type:Provider Instructions for Treatment How to access health informa tion online Indication:Hypertension Start:20-Mar-2018 Instruction Type:Patient Education How to access health informa tion online - Detail Indication:Hypertension Start:20-Mar-2018 Instruction Type:Patient Education Patient Instructions Indication:Hypertension Start:20-Mar-2018 Instruction Type:Provider Instructions for Treatment How to access health informa tion online Indication:Non-smoker Start:23-Feb-2018 Instruction Type:Patient Education How to access health informa tion online Indication:Non-smoker Start:23-Feb-2018 Instruction Type:Patient Education How to access health informa tion online - Detail Indication:Non-smoker Start:23-Feb-2018 Instruction Type:Patient Education Patient Instructions Indication:Non-smoker Start:23-Feb-2018 Instruction Type:Provider Instructions for Treatment [facility]; [facility] Work Phone: Instructions* Name Dates Details Patient Instructions Indication:BMI 32.0-32.9,adult Start:07-Nov-2021 Instruction Type:Provider Instructions for Treatment How to Access Health Informa tion Online using Patient Portal and [employer] Apps Indication:BMI 32.0-32.9,adult Start:07-Nov-2021 Instruction Type:Patient Education Patient Instructions Indication:Non-smoker Start:16-Aug-2021 Instruction Type:Provider Instructions for Treatment How to Access Health Informa tion Online using Patient Portal and [employer] Apps Indication:Non-smoker Start:16-Aug-2021 Instruction Type:Patient Education Patient Instructions Indication:BMI 32.0-32.9,adult Start:11-Jun-2021 Instruction Type:Provider Instructions for Treatment How to Access Health Informa tion Online using Patient Portal and [employer] Apps Indication:BMI 32.0-32.9,adult Start:11-Jun-2021 Instruction Type:Patient Education Patient Instructions Indication:Non-smoker Start:16-May-2021 Instruction Type:Provider Instructions for Treatment How to Access Health Informa tion Online using Patient Portal and [employer] Apps Indication:Non-smoker Start:16-May-2021 Instruction Type:Patient Education Patient Instructions Indication:BMI 31.0-31.9,adult Start:29-Jan-2021 Instruction Type:Provider Instructions for Treatment How to Access Health Informa tion Online using Patient Portal and [employer] Apps Indication:BMI 31.0-31.9,adult Start:29-Jan-2021 Instruction Type:Patient Education Patient Instructions Indication:Non-smoker Start:11-Dec-2020 Instruction Type:Provider Instructions for Treatment How to Access Health Informa tion Online using Patient Portal and [employer] Apps Indication:Non-smoker Start:11-Dec-2020 Instruction Type:Patient Education How to Access Health Informa tion Online using Patient Portal and [employer] Apps Indication:Non-smoker Start:31-Aug-2020 Instruction Type:Patient Education Patient Instructions Indication:Non-smoker Start:31-Aug-2020 Instruction Type:Provider Instructions for Treatment Patient Instructions Indication:Non-smoker Start:10-Aug-2020 Instruction Type:Provider Instructions for Treatment How to Access Health Informa tion Online using Patient Portal and [employer] Apps Indication:Non-smoker Start:10-Aug-2020 Instruction Type:Patient Education How to Access Health Informa tion Online using Patient Portal and [employer] Apps Indication:Non-smoker Start:20-Jul-2020 Instruction Type:Patient Education Patient Instructions Indication:Non-smoker Start:20-Jul-2020 Instruction Type:Provider Instructions for Treatment How to Access Health Informa tion Online using Patient Portal and [employer] Apps Indication:Non-smoker Start:29-Jun-2020 Instruction Type:Patient Education Patient Instructions Indication:Non-smoker Start:29-Jun-2020 Instruction Type:Provider Instructions for Treatment How to Access Health Informa tion Online using Patient Portal and [employer] Apps Indication:Non-smoker Start:07-Jun-2020 Instruction Type:Patient Education Patient Instructions Indication:Non-smoker Start:07-Jun-2020 Instruction Type:Provider Instructions for Treatment How to Access Health Informa tion Online using Patient Portal and [employer] Apps Indication:Non-smoker Start:24-May-2020 Instruction Type:Patient Education Patient Instructions Indication:Non-smoker Start:24-May-2020 Instruction Type:Provider Instructions for Treatment Patient Instructions Indication:Non-smoker Start:08-Mar-2020 Instruction Type:Provider Instructions for Treatment How to Access Health Informa tion Online using Patient Portal and [employer] Apps Indication:Non-smoker Start:08-Mar-2020 Instruction Type:Patient Education obesity counseling Indication:Hypertension Start:23-Dec-2019 Instruction Type:Provider Instructions for Treatment How to access health informa tion online Indication:Non-smoker Start:23-Dec-2019 Instruction Type:Patient Education How to access health informa tion online - Detail Indication:Non-smoker Start:23-Dec-2019 Instruction Type:Patient Education Patient Instructions Indication:Non-smoker Start:23-Dec-2019 Instruction Type:Provider Instructions for Treatment How to access health informa tion online Indication:Non-smoker Start:08-Dec-2019 Instruction Type:Patient Education How to access health informa tion online - Detail Indication:Non-smoker Start:08-Dec-2019 Instruction Type:Patient Education Patient Instructions Indication:Non-smoker Start:08-Dec-2019 Instruction Type:Provider Instructions for Treatment How to access health informa tion online Indication:Non-smoker Start:11-Oct-2019 Instruction Type:Patient Education How to access health informa tion online - Detail Indication:Non-smoker Start:11-Oct-2019 Instruction Type:Patient Education Patient Instructions Indication:Non-smoker Start:11-Oct-2019 Instruction Type:Provider Instructions for Treatment How to access health informa tion online - Detail Indication:Non-smoker Start:21-Jul-2019 Instruction Type:Patient Education How to access health informa tion online Indication:Non-smoker Start:21-Jul-2019 Instruction Type:Patient Education Patient Instructions Indication:Non-smoker Start:21-Jul-2019 Instruction Type:Provider Instructions for Treatment How to access health informa tion online - Detail Indication:BMI 31.0-31.9,adult Start:09-Jun-2019 Instruction Type:Patient Education How to access health informa tion online Indication:BMI 31.0-31.9,adult Start:09-Jun-2019 Instruction Type:Patient Education Patient Instructions Indication:BMI 31.0-31.9,adult Start:09-Jun-2019 Instruction Type:Provider Instructions for Treatment How to access health informa tion online Indication:Non-smoker Start:26-Mar-2019 Instruction Type:Patient Education How to access health informa tion online - Detail Indication:Non-smoker Start:26-Mar-2019 Instruction Type:Patient Education Patient Instructions Indication:Non-smoker Start:26-Mar-2019 Instruction Type:Provider Instructions for Treatment How to access health informa tion online Indication:Non-smoker Start:22-Jan-2019 Instruction Type:Patient Education How to access health informa tion online - Detail Indication:Non-smoker Start:22-Jan-2019 Instruction Type:Patient Education Patient Instructions Indication:Non-smoker Start:22-Jan-2019 Instruction Type:Provider Instructions for Treatment How to access health informa tion online Indication:Non-smoker Start:24-Aug-2018 Instruction Type:Patient Education How to access health informa tion online - Detail Indication:Non-smoker Start:24-Aug-2018 Instruction Type:Patient Education Patient Instructions Indication:Non-smoker Start:24-Aug-2018 Instruction Type:Provider Instructions for Treatment How to access health informa tion online Indication:Non-smoker Start:13-Jul-2018 Instruction Type:Patient Education How to access health informa tion online - Detail Indication:Non-smoker Start:13-Jul-2018 Instruction Type:Patient Education Patient Instructions Indication:Flashing lights Start:13-Jul-2018 Instruction Type:Provider Instructions for Treatment How to access health informa tion online Indication:Non-smoker Start:21-May-2018 Instruction Type:Patient Education How to access health informa tion online - Detail Indication:Non-smoker Start:21-May-2018 Instruction Type:Patient Education Patient Instructions Indication:Non-smoker Start:21-May-2018 Instruction Type:Provider Instructions for Treatment How to access health informa tion online Indication:Non-smoker Start:01-May-2018 Instruction Type:Patient Education How to access health informa tion online - Detail Indication:Non-smoker Start:01-May-2018 Instruction Type:Patient Education Patient Instructions Indication:Non-smoker Start:01-May-2018 Instruction Type:Provider Instructions for Treatment How to access health informa tion online Indication:Non-smoker Start:02-Apr-2018 Instruction Type:Patient Education How to access health informa tion online - Detail Indication:Non-smoker Start:02-Apr-2018 Instruction Type:Patient Education Patient Instructions Indication:Non-smoker Start:02-Apr-2018 Instruction Type:Provider Instructions for Treatment How to access health informa tion online Indication:Hypertension Start:20-Mar-2018 Instruction Type:Patient Education How to access health informa tion online - Detail Indication:Hypertension Start:20-Mar-2018 Instruction Type:Patient Education Patient Instructions Indication:Hypertension Start:20-Mar-2018 Instruction Type:Provider Instructions for Treatment How to access health informa tion online Indication:Non-smoker Start:23-Feb-2018 Instruction Type:Patient Education How to access health informa tion online Indication:Non-smoker Start:23-Feb-2018 Instruction Type:Patient Education How to access health informa tion online - Detail Indication:Non-smoker Start:23-Feb-2018 Instruction Type:Patient Education Patient Instructions Indication:Non-smoker Start:23-Feb-2018 Instruction Type:Provider Instructions for Treatment [facility]; [facility] Work Phone: Instructions* Name Dates Details Patient Instructions Indication:BMI 33.0-33.9,adult Start:11-Feb-2022 Instruction Type:Provider Instructions for Treatment How to Access Health Informa tion Online using Patient Portal and [employer] Apps Indication:BMI 33.0-33.9,adult Start:11-Feb-2022 Instruction Type:Patient Education Patient Instructions Indication:BMI 32.0-32.9,adult Start:07-Nov-2021 Instruction Type:Provider Instructions for Treatment How to Access Health Informa tion Online using Patient Portal and [employer] Apps Indication:BMI 32.0-32.9,adult Start:07-Nov-2021 Instruction Type:Patient Education Patient Instructions Indication:Non-smoker Start:16-Aug-2021 Instruction Type:Provider Instructions for Treatment How to Access Health Informa tion Online using Patient Portal and [employer] Apps Indication:Non-smoker Start:16-Aug-2021 Instruction Type:Patient Education Patient Instructions Indication:BMI 32.0-32.9,adult Start:11-Jun-2021 Instruction Type:Provider Instructions for Treatment How to Access Health Informa tion Online using Patient Portal and [employer] Apps Indication:BMI 32.0-32.9,adult Start:11-Jun-2021 Instruction Type:Patient Education Patient Instructions Indication:Non-smoker Start:16-May-2021 Instruction Type:Provider Instructions for Treatment How to Access Health Informa tion Online using Patient Portal and [employer] Apps Indication:Non-smoker Start:16-May-2021 Instruction Type:Patient Education Patient Instructions Indication:BMI 31.0-31.9,adult Start:29-Jan-2021 Instruction Type:Provider Instructions for Treatment How to Access Health Informa tion Online using Patient Portal and [employer] Apps Indication:BMI 31.0-31.9,adult Start:29-Jan-2021 Instruction Type:Patient Education Patient Instructions Indication:Non-smoker Start:11-Dec-2020 Instruction Type:Provider Instructions for Treatment How to Access Health Informa tion Online using Patient Portal and [employer] Apps Indication:Non-smoker Start:11-Dec-2020 Instruction Type:Patient Education How to Access Health Informa tion Online using Patient Portal and [employer] Apps Indication:Non-smoker Start:31-Aug-2020 Instruction Type:Patient Education Patient Instructions Indication:Non-smoker Start:31-Aug-2020 Instruction Type:Provider Instructions for Treatment Patient Instructions Indication:Non-smoker Start:10-Aug-2020 Instruction Type:Provider Instructions for Treatment How to Access Health Informa tion Online using Patient Portal and [employer] Apps Indication:Non-smoker Start:10-Aug-2020 Instruction Type:Patient Education How to Access Health Informa tion Online using Patient Portal and [employer] Apps Indication:Non-smoker Start:20-Jul-2020 Instruction Type:Patient Education Patient Instructions Indication:Non-smoker Start:20-Jul-2020 Instruction Type:Provider Instructions for Treatment How to Access Health Informa tion Online using Patient Portal and [employer] Apps Indication:Non-smoker Start:29-Jun-2020 Instruction Type:Patient Education Patient Instructions Indication:Non-smoker Start:29-Jun-2020 Instruction Type:Provider Instructions for Treatment How to Access Health Informa tion Online using Patient Portal and [employer] Apps Indication:Non-smoker Start:07-Jun-2020 Instruction Type:Patient Education Patient Instructions Indication:Non-smoker Start:07-Jun-2020 Instruction Type:Provider Instructions for Treatment How to Access Health Informa tion Online using Patient Portal and [employer] Apps Indication:Non-smoker Start:24-May-2020 Instruction Type:Patient Education Patient Instructions Indication:Non-smoker Start:24-May-2020 Instruction Type:Provider Instructions for Treatment Patient Instructions Indication:Non-smoker Start:08-Mar-2020 Instruction Type:Provider Instructions for Treatment How to Access Health Informa tion Online using Patient Portal and [employer] Apps Indication:Non-smoker Start:08-Mar-2020 Instruction Type:Patient Education obesity counseling Indication:Hypertension Start:23-Dec-2019 Instruction Type:Provider Instructions for Treatment How to access health informa tion online Indication:Non-smoker Start:23-Dec-2019 Instruction Type:Patient Education How to access health informa tion online - Detail Indication:Non-smoker Start:23-Dec-2019 Instruction Type:Patient Education Patient Instructions Indication:Non-smoker Start:23-Dec-2019 Instruction Type:Provider Instructions for Treatment How to access health informa tion online Indication:Non-smoker Start:08-Dec-2019 Instruction Type:Patient Education How to access health informa tion online - Detail Indication:Non-smoker Start:08-Dec-2019 Instruction Type:Patient Education Patient Instructions Indication:Non-smoker Start:08-Dec-2019 Instruction Type:Provider Instructions for Treatment How to access health informa tion online Indication:Non-smoker Start:11-Oct-2019 Instruction Type:Patient Education How to access health informa tion online - Detail Indication:Non-smoker Start:11-Oct-2019 Instruction Type:Patient Education Patient Instructions Indication:Non-smoker Start:11-Oct-2019 Instruction Type:Provider Instructions for Treatment How to access health informa tion online - Detail Indication:Non-smoker Start:21-Jul-2019 Instruction Type:Patient Education How to access health informa tion online Indication:Non-smoker Start:21-Jul-2019 Instruction Type:Patient Education Patient Instructions Indication:Non-smoker Start:21-Jul-2019 Instruction Type:Provider Instructions for Treatment How to access health informa tion online - Detail Indication:BMI 31.0-31.9,adult Start:09-Jun-2019 Instruction Type:Patient Education How to access health informa tion online Indication:BMI 31.0-31.9,adult Start:09-Jun-2019 Instruction Type:Patient Education Patient Instructions Indication:BMI 31.0-31.9,adult Start:09-Jun-2019 Instruction Type:Provider Instructions for Treatment How to access health informa tion online Indication:Non-smoker Start:26-Mar-2019 Instruction Type:Patient Education How to access health informa tion online - Detail Indication:Non-smoker Start:26-Mar-2019 Instruction Type:Patient Education Patient Instructions Indication:Non-smoker Start:26-Mar-2019 Instruction Type:Provider Instructions for Treatment How to access health informa tion online Indication:Non-smoker Start:22-Jan-2019 Instruction Type:Patient Education How to access health informa tion online - Detail Indication:Non-smoker Start:22-Jan-2019 Instruction Type:Patient Education Patient Instructions Indication:Non-smoker Start:22-Jan-2019 Instruction Type:Provider Instructions for Treatment How to access health informa tion online Indication:Non-smoker Start:24-Aug-2018 Instruction Type:Patient Education How to access health informa tion online - Detail Indication:Non-smoker Start:24-Aug-2018 Instruction Type:Patient Education Patient Instructions Indication:Non-smoker Start:24-Aug-2018 Instruction Type:Provider Instructions for Treatment How to access health informa tion online Indication:Non-smoker Start:13-Jul-2018 Instruction Type:Patient Education How to access health informa tion online - Detail Indication:Non-smoker Start:13-Jul-2018 Instruction Type:Patient Education Patient Instructions Indication:Flashing lights Start:13-Jul-2018 Instruction Type:Provider Instructions for Treatment How to access health informa tion online Indication:Non-smoker Start:21-May-2018 Instruction Type:Patient Education How to access health informa tion online - Detail Indication:Non-smoker Start:21-May-2018 Instruction Type:Patient Education Patient Instructions Indication:Non-smoker Start:21-May-2018 Instruction Type:Provider Instructions for Treatment How to access health informa tion online Indication:Non-smoker Start:01-May-2018 Instruction Type:Patient Education How to access health informa tion online - Detail Indication:Non-smoker Start:01-May-2018 Instruction Type:Patient Education Patient Instructions Indication:Non-smoker Start:01-May-2018 Instruction Type:Provider Instructions for Treatment How to access health informa tion online Indication:Non-smoker Start:02-Apr-2018 Instruction Type:Patient Education How to access health informa tion online - Detail Indication:Non-smoker Start:02-Apr-2018 Instruction Type:Patient Education Patient Instructions Indication:Non-smoker Start:02-Apr-2018 Instruction Type:Provider Instructions for Treatment How to access health informa tion online Indication:Hypertension Start:20-Mar-2018 Instruction Type:Patient Education How to access health informa tion online - Detail Indication:Hypertension Start:20-Mar-2018 Instruction Type:Patient Education Patient Instructions Indication:Hypertension Start:20-Mar-2018 Instruction Type:Provider Instructions for Treatment How to access health informa tion online Indication:Non-smoker Start:23-Feb-2018 Instruction Type:Patient Education How to access health informa tion online Indication:Non-smoker Start:23-Feb-2018 Instruction Type:Patient Education How to access health informa tion online - Detail Indication:Non-smoker Start:23-Feb-2018 Instruction Type:Patient Education Patient Instructions Indication:Non-smoker Start:23-Feb-2018 Instruction Type:Provider Instructions for Treatment [facility]; [facility] Work Phone: Instructions* Name Dates Details Patient Instructions Indication:BMI 33.0-33.9,adult Start:11-Feb-2022 Instruction Type:Provider Instructions for Treatment How to Access Health Informa tion Online using Patient Portal and [employer] Apps Indication:BMI 33.0-33.9,adult Start:11-Feb-2022 Instruction Type:Patient Education Patient Instructions Indication:BMI 32.0-32.9,adult Start:07-Nov-2021 Instruction Type:Provider Instructions for Treatment How to Access Health Informa tion Online using Patient Portal and [employer] Apps Indication:BMI 32.0-32.9,adult Start:07-Nov-2021 Instruction Type:Patient Education Patient Instructions Indication:Non-smoker Start:16-Aug-2021 Instruction Type:Provider Instructions for Treatment How to Access Health Informa tion Online using Patient Portal and [employer] Apps Indication:Non-smoker Start:16-Aug-2021 Instruction Type:Patient Education Patient Instructions Indication:BMI 32.0-32.9,adult Start:11-Jun-2021 Instruction Type:Provider Instructions for Treatment How to Access Health Informa tion Online using Patient Portal and [employer] Apps Indication:BMI 32.0-32.9,adult Start:11-Jun-2021 Instruction Type:Patient Education Patient Instructions Indication:Non-smoker Start:16-May-2021 Instruction Type:Provider Instructions for Treatment How to Access Health Informa tion Online using Patient Portal and [employer] Apps Indication:Non-smoker Start:16-May-2021 Instruction Type:Patient Education Patient Instructions Indication:BMI 31.0-31.9,adult Start:29-Jan-2021 Instruction Type:Provider Instructions for Treatment How to Access Health Informa tion Online using Patient Portal and [employer] Apps Indication:BMI 31.0-31.9,adult Start:29-Jan-2021 Instruction Type:Patient Education Patient Instructions Indication:Non-smoker Start:11-Dec-2020 Instruction Type:Provider Instructions for Treatment How to Access Health Informa tion Online using Patient Portal and [employer] Apps Indication:Non-smoker Start:11-Dec-2020 Instruction Type:Patient Education How to Access Health Informa tion Online using Patient Portal and [employer] Apps Indication:Non-smoker Start:31-Aug-2020 Instruction Type:Patient Education Patient Instructions Indication:Non-smoker Start:31-Aug-2020 Instruction Type:Provider Instructions for Treatment Patient Instructions Indication:Non-smoker Start:10-Aug-2020 Instruction Type:Provider Instructions for Treatment How to Access Health Informa tion Online using Patient Portal and [employer] Apps Indication:Non-smoker Start:10-Aug-2020 Instruction Type:Patient Education How to Access Health Informa tion Online using Patient Portal and [employer] Apps Indication:Non-smoker Start:20-Jul-2020 Instruction Type:Patient Education Patient Instructions Indication:Non-smoker Start:20-Jul-2020 Instruction Type:Provider Instructions for Treatment How to Access Health Informa tion Online using Patient Portal and [employer] Apps Indication:Non-smoker Start:29-Jun-2020 Instruction Type:Patient Education Patient Instructions Indication:Non-smoker Start:29-Jun-2020 Instruction Type:Provider Instructions for Treatment How to Access Health Informa tion Online using Patient Portal and [employer] Apps Indication:Non-smoker Start:07-Jun-2020 Instruction Type:Patient Education Patient Instructions Indication:Non-smoker Start:07-Jun-2020 Instruction Type:Provider Instructions for Treatment How to Access Health Informa tion Online using Patient Portal and [employer] Apps Indication:Non-smoker Start:24-May-2020 Instruction Type:Patient Education Patient Instructions Indication:Non-smoker Start:24-May-2020 Instruction Type:Provider Instructions for Treatment Patient Instructions Indication:Non-smoker Start:08-Mar-2020 Instruction Type:Provider Instructions for Treatment How to Access Health Informa tion Online using Patient Portal and [employer] Apps Indication:Non-smoker Start:08-Mar-2020 Instruction Type:Patient Education obesity counseling Indication:Hypertension Start:23-Dec-2019 Instruction Type:Provider Instructions for Treatment How to access health informa tion online Indication:Non-smoker Start:23-Dec-2019 Instruction Type:Patient Education How to access health informa tion online - Detail Indication:Non-smoker Start:23-Dec-2019 Instruction Type:Patient Education Patient Instructions Indication:Non-smoker Start:23-Dec-2019 Instruction Type:Provider Instructions for Treatment How to access health informa tion online Indication:Non-smoker Start:08-Dec-2019 Instruction Type:Patient Education How to access health informa tion online - Detail Indication:Non-smoker Start:08-Dec-2019 Instruction Type:Patient Education Patient Instructions Indication:Non-smoker Start:08-Dec-2019 Instruction Type:Provider Instructions for Treatment How to access health informa tion online Indication:Non-smoker Start:11-Oct-2019 Instruction Type:Patient Education How to access health informa tion online - Detail Indication:Non-smoker Start:11-Oct-2019 Instruction Type:Patient Education Patient Instructions Indication:Non-smoker Start:11-Oct-2019 Instruction Type:Provider Instructions for Treatment How to access health informa tion online - Detail Indication:Non-smoker Start:21-Jul-2019 Instruction Type:Patient Education How to access health informa tion online Indication:Non-smoker Start:21-Jul-2019 Instruction Type:Patient Education Patient Instructions Indication:Non-smoker Start:21-Jul-2019 Instruction Type:Provider Instructions for Treatment How to access health informa tion online - Detail Indication:BMI 31.0-31.9,adult Start:09-Jun-2019 Instruction Type:Patient Education How to access health informa tion online Indication:BMI 31.0-31.9,adult Start:09-Jun-2019 Instruction Type:Patient Education Patient Instructions Indication:BMI 31.0-31.9,adult Start:09-Jun-2019 Instruction Type:Provider Instructions for Treatment How to access health informa tion online Indication:Non-smoker Start:26-Mar-2019 Instruction Type:Patient Education How to access health informa tion online - Detail Indication:Non-smoker Start:26-Mar-2019 Instruction Type:Patient Education Patient Instructions Indication:Non-smoker Start:26-Mar-2019 Instruction Type:Provider Instructions for Treatment How to access health informa tion online Indication:Non-smoker Start:22-Jan-2019 Instruction Type:Patient Education How to access health informa tion online - Detail Indication:Non-smoker Start:22-Jan-2019 Instruction Type:Patient Education Patient Instructions Indication:Non-smoker Start:22-Jan-2019 Instruction Type:Provider Instructions for Treatment How to access health informa tion online Indication:Non-smoker Start:24-Aug-2018 Instruction Type:Patient Education How to access health informa tion online - Detail Indication:Non-smoker Start:24-Aug-2018 Instruction Type:Patient Education Patient Instructions Indication:Non-smoker Start:24-Aug-2018 Instruction Type:Provider Instructions for Treatment How to access health informa tion online Indication:Non-smoker Start:13-Jul-2018 Instruction Type:Patient Education How to access health informa tion online - Detail Indication:Non-smoker Start:13-Jul-2018 Instruction Type:Patient Education Patient Instructions Indication:Flashing lights Start:13-Jul-2018 Instruction Type:Provider Instructions for Treatment How to access health informa tion online Indication:Non-smoker Start:21-May-2018 Instruction Type:Patient Education How to access health informa tion online - Detail Indication:Non-smoker Start:21-May-2018 Instruction Type:Patient Education Patient Instructions Indication:Non-smoker Start:21-May-2018 Instruction Type:Provider Instructions for Treatment How to access health informa tion online Indication:Non-smoker Start:01-May-2018 Instruction Type:Patient Education How to access health informa tion online - Detail Indication:Non-smoker Start:01-May-2018 Instruction Type:Patient Education Patient Instructions Indication:Non-smoker Start:01-May-2018 Instruction Type:Provider Instructions for Treatment How to access health informa tion online Indication:Non-smoker Start:02-Apr-2018 Instruction Type:Patient Education How to access health informa tion online - Detail Indication:Non-smoker Start:02-Apr-2018 Instruction Type:Patient Education Patient Instructions Indication:Non-smoker Start:02-Apr-2018 Instruction Type:Provider Instructions for Treatment How to access health informa tion online Indication:Hypertension Start:20-Mar-2018 Instruction Type:Patient Education How to access health informa tion online - Detail Indication:Hypertension Start:20-Mar-2018 Instruction Type:Patient Education Patient Instructions Indication:Hypertension Start:20-Mar-2018 Instruction Type:Provider Instructions for Treatment How to access health informa tion online Indication:Non-smoker Start:23-Feb-2018 Instruction Type:Patient Education How to access health informa tion online Indication:Non-smoker Start:23-Feb-2018 Instruction Type:Patient Education How to access health informa tion online - Detail Indication:Non-smoker Start:23-Feb-2018 Instruction Type:Patient Education Patient Instructions Indication:Non-smoker Start:23-Feb-2018 Instruction Type:Provider Instructions for Treatment [facility]; [facility] Work Phone: Instructions* Name Dates Details Patient Instructions Indication:BMI 33.0-33.9,adult Start:11-Feb-2022 Instruction Type:Provider Instructions for Treatment How to Access Health Informa tion Online using Patient Portal and [employer] Apps Indication:BMI 33.0-33.9,adult Start:11-Feb-2022 Instruction Type:Patient Education Patient Instructions Indication:BMI 32.0-32.9,adult Start:07-Nov-2021 Instruction Type:Provider Instructions for Treatment How to Access Health Informa tion Online using Patient Portal and [employer] Indication:BMI 32.0-32.9,adult Start:07-Nov-2021 Instruction Type:Patient Education Patient Instructions Indication:Non-smoker Start:16-Aug-2021 Instruction Type:Provider Instructions for Treatment How to Access Health Informa tion Online using Patient Portal and [employer] Indication:Non-smoker Start:16-Aug-2021 Instruction Type:Patient Education Patient Instructions Indication:BMI 32.0-32.9,adult Start:11-Jun-2021 Instruction Type:Provider Instructions for Treatment How to Access Health Informa tion Online using Patient Portal and [employer] Indication:BMI 32.0-32.9,adult Start:11-Jun-2021 Instruction Type:Patient Education Patient Instructions Indication:Non-smoker Start:16-May-2021 Instruction Type:Provider Instructions for Treatment How to Access Health Informa tion Online using Patient Portal and [employer] Indication:Non-smoker Start:16-May-2021 Instruction Type:Patient Education Patient Instructions Indication:BMI 31.0-31.9,adult Start:29-Jan-2021 Instruction Type:Provider Instructions for Treatment How to Access Health Informa tion Online using Patient Portal and [employer] Indication:BMI 31.0-31.9,adult Start:29-Jan-2021 Instruction Type:Patient Education Patient Instructions Indication:Non-smoker Start:11-Dec-2020 Instruction Type:Provider Instructions for Treatment How to Access Health Informa tion Online using Patient Portal and [employer] Indication:Non-smoker Start:11-Dec-2020 Instruction Type:Patient Education How to Access Health Informa tion Online using Patient Portal and [employer] Indication:Non-smoker Start:31-Aug-2020 Instruction Type:Patient Education Patient Instructions Indication:Non-smoker Start:31-Aug-2020 Instruction Type:Provider Instructions for Treatment Patient Instructions Indication:Non-smoker Start:10-Aug-2020 Instruction Type:Provider Instructions for Treatment How to Access Health Informa tion Online using Patient Portal and [employer] Indication:Non-smoker Start:10-Aug-2020 Instruction Type:Patient Education How to Access Health Informa tion Online using Patient Portal and [employer] Indication:Non-smoker Start:20-Jul-2020 Instruction Type:Patient Education Patient Instructions Indication:Non-smoker Start:20-Jul-2020 Instruction Type:Provider Instructions for Treatment How to Access Health Informa tion Online using Patient Portal and [employer] Indication:Non-smoker Start:29-Jun-2020 Instruction Type:Patient Education Patient Instructions Indication:Non-smoker Start:29-Jun-2020 Instruction Type:Provider Instructions for Treatment How to Access Health Informa tion Online using Patient Portal and [employer] Indication:Non-smoker Start:07-Jun-2020 Instruction Type:Patient Education Patient Instructions Indication:Non-smoker Start:07-Jun-2020 Instruction Type:Provider Instructions for Treatment How to Access Health Informa tion Online using Patient Portal and [employer] Indication:Non-smoker Start:24-May-2020 Instruction Type:Patient Education Patient Instructions Indication:Non-smoker Start:24-May-2020 Instruction Type:Provider Instructions for Treatment Patient Instructions Indication:Non-smoker Start:08-Mar-2020 Instruction Type:Provider Instructions for Treatment How to Access Health Informa tion Online using Patient Portal and [employer] Indication:Non-smoker Start:08-Mar-2020 Instruction Type:Patient Education obesity counseling Indication:Hypertension Start:23-Dec-2019 Instruction Type:Provider Instructions for Treatment How to access health informa tion online Indication:Non-smoker Start:23-Dec-2019 Instruction Type:Patient Education How to access health informa tion online - Detail Indication:Non-smoker Start:23-Dec-2019 Instruction Type:Patient Education Patient Instructions Indication:Non-smoker Start:23-Dec-2019 Instruction Type:Provider Instructions for Treatment How to access health informa tion online Indication:Non-smoker Start:08-Dec-2019 Instruction Type:Patient Education How to access health informa tion online - Detail Indication:Non-smoker Start:08-Dec-2019 Instruction Type:Patient Education Patient Instructions Indication:Non-smoker Start:08-Dec-2019 Instruction Type:Provider Instructions for Treatment How to access health informa tion online Indication:Non-smoker Start:11-Oct-2019 Instruction Type:Patient Education How to access health informa tion online - Detail Indication:Non-smoker Start:11-Oct-2019 Instruction Type:Patient Education Patient Instructions Indication:Non-smoker Start:11-Oct-2019 Instruction Type:Provider Instructions for Treatment How to access health informa tion online - Detail Indication:Non-smoker Start:21-Jul-2019 Instruction Type:Patient Education How to access health informa tion online Indication:Non-smoker Start:21-Jul-2019 Instruction Type:Patient Education Patient Instructions Indication:Non-smoker Start:21-Jul-2019 Instruction Type:Provider Instructions for Treatment How to access health informa tion online - Detail Indication:BMI 31.0-31.9,adult Start:09-Jun-2019 Instruction Type:Patient Education How to access health informa tion online Indication:BMI 31.0-31.9,adult Start:09-Jun-2019 Instruction Type:Patient Education Patient Instructions Indication:BMI 31.0-31.9,adult Start:09-Jun-2019 Instruction Type:Provider Instructions for Treatment How to access health informa tion online Indication:Non-smoker Start:26-Mar-2019 Instruction Type:Patient Education How to access health informa tion online - Detail Indication:Non-smoker Start:26-Mar-2019 Instruction Type:Patient Education Patient Instructions Indication:Non-smoker Start:26-Mar-2019 Instruction Type:Provider Instructions for Treatment How to access health informa tion online Indication:Non-smoker Start:22-Jan-2019 Instruction Type:Patient Education How to access health informa tion online - Detail Indication:Non-smoker Start:22-Jan-2019 Instruction Type:Patient Education Patient Instructions Indication:Non-smoker Start:22-Jan-2019 Instruction Type:Provider Instructions for Treatment How to access health informa tion online Indication:Non-smoker Start:24-Aug-2018 Instruction Type:Patient Education How to access health informa tion online - Detail Indication:Non-smoker Start:24-Aug-2018 Instruction Type:Patient Education Patient Instructions Indication:Non-smoker Start:24-Aug-2018 Instruction Type:Provider Instructions for Treatment How to access health informa tion online Indication:Non-smoker Start:13-Jul-2018 Instruction Type:Patient Education How to access health informa tion online - Detail Indication:Non-smoker Start:13-Jul-2018 Instruction Type:Patient Education Patient Instructions Indication:Flashing lights Start:13-Jul-2018 Instruction Type:Provider Instructions for Treatment How to access health informa tion online Indication:Non-smoker Start:21-May-2018 Instruction Type:Patient Education How to access health informa tion online - Detail Indication:Non-smoker Start:21-May-2018 Instruction Type:Patient Education Patient Instructions Indication:Non-smoker Start:21-May-2018 Instruction Type:Provider Instructions for Treatment How to access health informa tion online Indication:Non-smoker Start:01-May-2018 Instruction Type:Patient Education How to access health informa tion online - Detail Indication:Non-smoker Start:01-May-2018 Instruction Type:Patient Education Patient Instructions Indication:Non-smoker Start:01-May-2018 Instruction Type:Provider Instructions for Treatment How to access health informa tion online Indication:Non-smoker Start:02-Apr-2018 Instruction Type:Patient Education How to access health informa tion online - Detail Indication:Non-smoker Start:02-Apr-2018 Instruction Type:Patient Education Patient Instructions Indication:Non-smoker Start:02-Apr-2018 Instruction Type:Provider Instructions for Treatment How to access health informa tion online Indication:Hypertension Start:20-Mar-2018 Instruction Type:Patient Education How to access health informa tion online - Detail Indication:Hypertension Start:20-Mar-2018 Instruction Type:Patient Education Patient Instructions Indication:Hypertension Start:20-Mar-2018 Instruction Type:Provider Instructions for Treatment How to access health informa tion online Indication:Non-smoker Start:23-Feb-2018 Instruction Type:Patient Education How to access health informa tion online Indication:Non-smoker Start:23-Feb-2018 Instruction Type:Patient Education How to access health informa tion online - Detail Indication:Non-smoker Start:23-Feb-2018 Instruction Type:Patient Education Patient Instructions Indication:Non-smoker Start:23-Feb-2018 Instruction Type:Provider Instructions for Treatment [facility]; [facility] Work Phone: Instructions* Name Dates Details Patient Instructions Indication:Encounter for screening mammogram for malignant neoplasm of breast Start:17-May-2022 Instruction Type:Provider Instructions for Treatment How to Access Health Informa tion Online using Patient Portal and [employer] Apps Indication:Encounter for screening mammogram for malignant neoplasm of breast Start:17-May-2022 Instruction Type:Patient Education Patient Instructions Indication:BMI 33.0-33.9,adult Start:11-Feb-2022 Instruction Type:Provider Instructions for Treatment How to Access Health Informa tion Online using Patient Portal and [employer] Apps Indication:BMI 33.0-33.9,adult Start:11-Feb-2022 Instruction Type:Patient Education Patient Instructions Indication:BMI 32.0-32.9,adult Start:07-Nov-2021 Instruction Type:Provider Instructions for Treatment How to Access Health Informa tion Online using Patient Portal and [employer] Apps Indication:BMI 32.0-32.9,adult Start:07-Nov-2021 Instruction Type:Patient Education Patient Instructions Indication:Non-smoker Start:16-Aug-2021 Instruction Type:Provider Instructions for Treatment How to Access Health Informa tion Online using Patient Portal and [employer] Indication:Non-smoker Start:16-Aug-2021 Instruction Type:Patient Education Patient Instructions Indication:BMI 32.0-32.9,adult Start:11-Jun-2021 Instruction Type:Provider Instructions for Treatment How to Access Health Informa tion Online using Patient Portal and [employer] Indication:BMI 32.0-32.9,adult Start:11-Jun-2021 Instruction Type:Patient Education Patient Instructions Indication:Non-smoker Start:16-May-2021 Instruction Type:Provider Instructions for Treatment How to Access Health Informa tion Online using Patient Portal and [employer] Indication:Non-smoker Start:16-May-2021 Instruction Type:Patient Education Patient Instructions Indication:BMI 31.0-31.9,adult Start:29-Jan-2021 Instruction Type:Provider Instructions for Treatment How to Access Health Informa tion Online using Patient Portal and [employer] Indication:BMI 31.0-31.9,adult Start:29-Jan-2021 Instruction Type:Patient Education Patient Instructions Indication:Non-smoker Start:11-Dec-2020 Instruction Type:Provider Instructions for Treatment How to Access Health Informa tion Online using Patient Portal and [employer] Indication:Non-smoker Start:11-Dec-2020 Instruction Type:Patient Education How to Access Health Informa tion Online using Patient Portal and [employer] Indication:Non-smoker Start:31-Aug-2020 Instruction Type:Patient Education Patient Instructions Indication:Non-smoker Start:31-Aug-2020 Instruction Type:Provider Instructions for Treatment Patient Instructions Indication:Non-smoker Start:10-Aug-2020 Instruction Type:Provider Instructions for Treatment How to Access Health Informa tion Online using Patient Portal and [employer] Indication:Non-smoker Start:10-Aug-2020 Instruction Type:Patient Education How to Access Health Informa tion Online using Patient Portal and [employer] Indication:Non-smoker Start:20-Jul-2020 Instruction Type:Patient Education Patient Instructions Indication:Non-smoker Start:20-Jul-2020 Instruction Type:Provider Instructions for Treatment How to Access Health Informa tion Online using Patient Portal and [employer] Indication:Non-smoker Start:29-Jun-2020 Instruction Type:Patient Education Patient Instructions Indication:Non-smoker Start:29-Jun-2020 Instruction Type:Provider Instructions for Treatment How to Access Health Informa tion Online using Patient Portal and [employer] Indication:Non-smoker Start:07-Jun-2020 Instruction Type:Patient Education Patient Instructions Indication:Non-smoker Start:07-Jun-2020 Instruction Type:Provider Instructions for Treatment How to Access Health Informa tion Online using Patient Portal and [employer] Indication:Non-smoker Start:24-May-2020 Instruction Type:Patient Education Patient Instructions Indication:Non-smoker Start:24-May-2020 Instruction Type:Provider Instructions for Treatment Patient Instructions Indication:Non-smoker Start:08-Mar-2020 Instruction Type:Provider Instructions for Treatment How to Access Health Informa tion Online using Patient Portal and [employer] Apps Indication:Non-smoker Start:08-Mar-2020 Instruction Type:Patient Education obesity counseling Indication:Hypertension Start:23-Dec-2019 Instruction Type:Provider Instructions for Treatment How to access health informa tion online Indication:Non-smoker Start:23-Dec-2019 Instruction Type:Patient Education How to access health informa tion online - Detail Indication:Non-smoker Start:23-Dec-2019 Instruction Type:Patient Education Patient Instructions Indication:Non-smoker Start:23-Dec-2019 Instruction Type:Provider Instructions for Treatment How to access health informa tion online Indication:Non-smoker Start:08-Dec-2019 Instruction Type:Patient Education How to access health informa tion online - Detail Indication:Non-smoker Start:08-Dec-2019 Instruction Type:Patient Education Patient Instructions Indication:Non-smoker Start:08-Dec-2019 Instruction Type:Provider Instructions for Treatment How to access health informa tion online Indication:Non-smoker Start:11-Oct-2019 Instruction Type:Patient Education How to access health informa tion online - Detail Indication:Non-smoker Start:11-Oct-2019 Instruction Type:Patient Education Patient Instructions Indication:Non-smoker Start:11-Oct-2019 Instruction Type:Provider Instructions for Treatment How to access health informa tion online - Detail Indication:Non-smoker Start:21-Jul-2019 Instruction Type:Patient Education How to access health informa tion online Indication:Non-smoker Start:21-Jul-2019 Instruction Type:Patient Education Patient Instructions Indication:Non-smoker Start:21-Jul-2019 Instruction Type:Provider Instructions for Treatment How to access health informa tion online - Detail Indication:BMI 31.0-31.9,adult Start:09-Jun-2019 Instruction Type:Patient Education How to access health informa tion online Indication:BMI 31.0-31.9,adult Start:09-Jun-2019 Instruction Type:Patient Education Patient Instructions Indication:BMI 31.0-31.9,adult Start:09-Jun-2019 Instruction Type:Provider Instructions for Treatment How to access health informa tion online Indication:Non-smoker Start:26-Mar-2019 Instruction Type:Patient Education How to access health informa tion online - Detail Indication:Non-smoker Start:26-Mar-2019 Instruction Type:Patient Education Patient Instructions Indication:Non-smoker Start:26-Mar-2019 Instruction Type:Provider Instructions for Treatment How to access health informa tion online Indication:Non-smoker Start:22-Jan-2019 Instruction Type:Patient Education How to access health informa tion online - Detail Indication:Non-smoker Start:22-Jan-2019 Instruction Type:Patient Education Patient Instructions Indication:Non-smoker Start:22-Jan-2019 Instruction Type:Provider Instructions for Treatment How to access health informa tion online Indication:Non-smoker Start:24-Aug-2018 Instruction Type:Patient Education How to access health informa tion online - Detail Indication:Non-smoker Start:24-Aug-2018 Instruction Type:Patient Education Patient Instructions Indication:Non-smoker Start:24-Aug-2018 Instruction Type:Provider Instructions for Treatment How to access health informa tion online Indication:Non-smoker Start:13-Jul-2018 Instruction Type:Patient Education How to access health informa tion online - Detail Indication:Non-smoker Start:13-Jul-2018 Instruction Type:Patient Education Patient Instructions Indication:Flashing lights Start:13-Jul-2018 Instruction Type:Provider Instructions for Treatment How to access health informa tion online Indication:Non-smoker Start:21-May-2018 Instruction Type:Patient Education How to access health informa tion online - Detail Indication:Non-smoker Start:21-May-2018 Instruction Type:Patient Education Patient Instructions Indication:Non-smoker Start:21-May-2018 Instruction Type:Provider Instructions for Treatment How to access health informa tion online Indication:Non-smoker Start:01-May-2018 Instruction Type:Patient Education How to access health informa tion online - Detail Indication:Non-smoker Start:01-May-2018 Instruction Type:Patient Education Patient Instructions Indication:Non-smoker Start:01-May-2018 Instruction Type:Provider Instructions for Treatment How to access health informa tion online Indication:Non-smoker Start:02-Apr-2018 Instruction Type:Patient Education How to access health informa tion online - Detail Indication:Non-smoker Start:02-Apr-2018 Instruction Type:Patient Education Patient Instructions Indication:Non-smoker Start:02-Apr-2018 Instruction Type:Provider Instructions for Treatment How to access health informa tion online Indication:Hypertension Start:20-Mar-2018 Instruction Type:Patient Education How to access health informa tion online - Detail Indication:Hypertension Start:20-Mar-2018 Instruction Type:Patient Education Patient Instructions Indication:Hypertension Start:20-Mar-2018 Instruction Type:Provider Instructions for Treatment How to access health informa tion online Indication:Non-smoker Start:23-Feb-2018 Instruction Type:Patient Education How to access health informa tion online Indication:Non-smoker Start:23-Feb-2018 Instruction Type:Patient Education How to access health informa tion online - Detail Indication:Non-smoker Start:23-Feb-2018 Instruction Type:Patient Education Patient Instructions Indication:Non-smoker Start:23-Feb-2018 Instruction Type:Provider Instructions for Treatment [facility]; [facility] Work Phone: Instructions* Name Dates Details Patient Instructions Indication:Encounter for screening mammogram for malignant neoplasm of breast Start:17-May-2022 Instruction Type:Provider Instructions for Treatment How to Access Health Informa tion Online using Patient Portal and [employer] Apps Indication:Encounter for screening mammogram for malignant neoplasm of breast Start:17-May-2022 Instruction Type:Patient Education Patient Instructions Indication:BMI 33.0-33.9,adult Start:11-Feb-2022 Instruction Type:Provider Instructions for Treatment How to Access Health Informa tion Online using Patient Portal and [employer] Indication:BMI 33.0-33.9,adult Start:11-Feb-2022 Instruction Type:Patient Education Patient Instructions Indication:BMI 32.0-32.9,adult Start:07-Nov-2021 Instruction Type:Provider Instructions for Treatment How to Access Health Informa tion Online using Patient Portal and [employer] Indication:BMI 32.0-32.9,adult Start:07-Nov-2021 Instruction Type:Patient Education Patient Instructions Indication:Non-smoker Start:16-Aug-2021 Instruction Type:Provider Instructions for Treatment How to Access Health Informa tion Online using Patient Portal and [employer] Apps Indication:Non-smoker Start:16-Aug-2021 Instruction Type:Patient Education Patient Instructions Indication:BMI 32.0-32.9,adult Start:11-Jun-2021 Instruction Type:Provider Instructions for Treatment How to Access Health Informa tion Online using Patient Portal and [employer] Indication:BMI 32.0-32.9,adult Start:11-Jun-2021 Instruction Type:Patient Education Patient Instructions Indication:Non-smoker Start:16-May-2021 Instruction Type:Provider Instructions for Treatment How to Access Health Informa tion Online using Patient Portal and [employer] Indication:Non-smoker Start:16-May-2021 Instruction Type:Patient Education Patient Instructions Indication:BMI 31.0-31.9,adult Start:29-Jan-2021 Instruction Type:Provider Instructions for Treatment How to Access Health Informa tion Online using Patient Portal and [employer] Indication:BMI 31.0-31.9,adult Start:29-Jan-2021 Instruction Type:Patient Education Patient Instructions Indication:Non-smoker Start:11-Dec-2020 Instruction Type:Provider Instructions for Treatment How to Access Health Informa tion Online using Patient Portal and [employer] Indication:Non-smoker Start:11-Dec-2020 Instruction Type:Patient Education How to Access Health Informa tion Online using Patient Portal and [employer] Indication:Non-smoker Start:31-Aug-2020 Instruction Type:Patient Education Patient Instructions Indication:Non-smoker Start:31-Aug-2020 Instruction Type:Provider Instructions for Treatment Patient Instructions Indication:Non-smoker Start:10-Aug-2020 Instruction Type:Provider Instructions for Treatment How to Access Health Informa tion Online using Patient Portal and [employer] Indication:Non-smoker Start:10-Aug-2020 Instruction Type:Patient Education How to Access Health Informa tion Online using Patient Portal and [employer] Indication:Non-smoker Start:20-Jul-2020 Instruction Type:Patient Education Patient Instructions Indication:Non-smoker Start:20-Jul-2020 Instruction Type:Provider Instructions for Treatment How to Access Health Informa tion Online using Patient Portal and [employer] Apps Indication:Non-smoker Start:29-Jun-2020 Instruction Type:Patient Education Patient Instructions Indication:Non-smoker Start:29-Jun-2020 Instruction Type:Provider Instructions for Treatment How to Access Health Informa tion Online using Patient Portal and [employer] Apps Indication:Non-smoker Start:07-Jun-2020 Instruction Type:Patient Education Patient Instructions Indication:Non-smoker Start:07-Jun-2020 Instruction Type:Provider Instructions for Treatment How to Access Health Informa tion Online using Patient Portal and [employer] Apps Indication:Non-smoker Start:24-May-2020 Instruction Type:Patient Education Patient Instructions Indication:Non-smoker Start:24-May-2020 Instruction Type:Provider Instructions for Treatment Patient Instructions Indication:Non-smoker Start:08-Mar-2020 Instruction Type:Provider Instructions for Treatment How to Access Health Informa tion Online using Patient Portal and [employer] Apps Indication:Non-smoker Start:08-Mar-2020 Instruction Type:Patient Education obesity counseling Indication:Hypertension Start:23-Dec-2019 Instruction Type:Provider Instructions for Treatment How to access health informa tion online Indication:Non-smoker Start:23-Dec-2019 Instruction Type:Patient Education How to access health informa tion online - Detail Indication:Non-smoker Start:23-Dec-2019 Instruction Type:Patient Education Patient Instructions Indication:Non-smoker Start:23-Dec-2019 Instruction Type:Provider Instructions for Treatment How to access health informa tion online Indication:Non-smoker Start:08-Dec-2019 Instruction Type:Patient Education How to access health informa tion online - Detail Indication:Non-smoker Start:08-Dec-2019 Instruction Type:Patient Education Patient Instructions Indication:Non-smoker Start:08-Dec-2019 Instruction Type:Provider Instructions for Treatment How to access health informa tion online Indication:Non-smoker Start:11-Oct-2019 Instruction Type:Patient Education How to access health informa tion online - Detail Indication:Non-smoker Start:11-Oct-2019 Instruction Type:Patient Education Patient Instructions Indication:Non-smoker Start:11-Oct-2019 Instruction Type:Provider Instructions for Treatment How to access health informa tion online - Detail Indication:Non-smoker Start:21-Jul-2019 Instruction Type:Patient Education How to access health informa tion online Indication:Non-smoker Start:21-Jul-2019 Instruction Type:Patient Education Patient Instructions Indication:Non-smoker Start:21-Jul-2019 Instruction Type:Provider Instructions for Treatment How to access health informa tion online - Detail Indication:BMI 31.0-31.9,adult Start:09-Jun-2019 Instruction Type:Patient Education How to access health informa tion online Indication:BMI 31.0-31.9,adult Start:09-Jun-2019 Instruction Type:Patient Education Patient Instructions Indication:BMI 31.0-31.9,adult Start:09-Jun-2019 Instruction Type:Provider Instructions for Treatment How to access health informa tion online Indication:Non-smoker Start:26-Mar-2019 Instruction Type:Patient Education How to access health informa tion online - Detail Indication:Non-smoker Start:26-Mar-2019 Instruction Type:Patient Education Patient Instructions Indication:Non-smoker Start:26-Mar-2019 Instruction Type:Provider Instructions for Treatment How to access health informa tion online Indication:Non-smoker Start:22-Jan-2019 Instruction Type:Patient Education How to access health informa tion online - Detail Indication:Non-smoker Start:22-Jan-2019 Instruction Type:Patient Education Patient Instructions Indication:Non-smoker Start:22-Jan-2019 Instruction Type:Provider Instructions for Treatment How to access health informa tion online Indication:Non-smoker Start:24-Aug-2018 Instruction Type:Patient Education How to access health informa tion online - Detail Indication:Non-smoker Start:24-Aug-2018 Instruction Type:Patient Education Patient Instructions Indication:Non-smoker Start:24-Aug-2018 Instruction Type:Provider Instructions for Treatment How to access health informa tion online Indication:Non-smoker Start:13-Jul-2018 Instruction Type:Patient Education How to access health informa tion online - Detail Indication:Non-smoker Start:13-Jul-2018 Instruction Type:Patient Education Patient Instructions Indication:Flashing lights Start:13-Jul-2018 Instruction Type:Provider Instructions for Treatment How to access health informa tion online Indication:Non-smoker Start:21-May-2018 Instruction Type:Patient Education How to access health informa tion online - Detail Indication:Non-smoker Start:21-May-2018 Instruction Type:Patient Education Patient Instructions Indication:Non-smoker Start:21-May-2018 Instruction Type:Provider Instructions for Treatment How to access health informa tion online Indication:Non-smoker Start:01-May-2018 Instruction Type:Patient Education How to access health informa tion online - Detail Indication:Non-smoker Start:01-May-2018 Instruction Type:Patient Education Patient Instructions Indication:Non-smoker Start:01-May-2018 Instruction Type:Provider Instructions for Treatment How to access health informa tion online Indication:Non-smoker Start:02-Apr-2018 Instruction Type:Patient Education How to access health informa tion online - Detail Indication:Non-smoker Start:02-Apr-2018 Instruction Type:Patient Education Patient Instructions Indication:Non-smoker Start:02-Apr-2018 Instruction Type:Provider Instructions for Treatment How to access health informa tion online Indication:Hypertension Start:20-Mar-2018 Instruction Type:Patient Education How to access health informa tion online - Detail Indication:Hypertension Start:20-Mar-2018 Instruction Type:Patient Education Patient Instructions Indication:Hypertension Start:20-Mar-2018 Instruction Type:Provider Instructions for Treatment How to access health informa tion online Indication:Non-smoker Start:23-Feb-2018 Instruction Type:Patient Education How to access health informa tion online Indication:Non-smoker Start:23-Feb-2018 Instruction Type:Patient Education How to access health informa tion online - Detail Indication:Non-smoker Start:23-Feb-2018 Instruction Type:Patient Education Patient Instructions Indication:Non-smoker Start:23-Feb-2018 Instruction Type:Provider Instructions for Treatment [facility]; [facility] Work Phone: Instructions* Name Dates Details Patient Instructions Indication:Non-smoker Start:23-May-2022 Instruction Type:Provider Instructions for Treatment How to Access Health Informa tion Online using Patient Portal and [employer] Apps Indication:Non-smoker Start:23-May-2022 Instruction Type:Patient Education Patient Instructions Indication:Encounter for screening mammogram for malignant neoplasm of breast Start:17-May-2022 Instruction Type:Provider Instructions for Treatment How to Access Health Informa tion Online using Patient Portal and [employer] Apps Indication:Encounter for screening mammogram for malignant neoplasm of breast Start:17-May-2022 Instruction Type:Patient Education Patient Instructions Indication:BMI 33.0-33.9,adult Start:11-Feb-2022 Instruction Type:Provider Instructions for Treatment How to Access Health Informa tion Online using Patient Portal and [employer] Apps Indication:BMI 33.0-33.9,adult Start:11-Feb-2022 Instruction Type:Patient Education Patient Instructions Indication:BMI 32.0-32.9,adult Start:07-Nov-2021 Instruction Type:Provider Instructions for Treatment How to Access Health Informa tion Online using Patient Portal and [employer] Apps Indication:BMI 32.0-32.9,adult Start:07-Nov-2021 Instruction Type:Patient Education Patient Instructions Indication:Non-smoker Start:16-Aug-2021 Instruction Type:Provider Instructions for Treatment How to Access Health Informa tion Online using Patient Portal and [employer] Apps Indication:Non-smoker Start:16-Aug-2021 Instruction Type:Patient Education Patient Instructions Indication:BMI 32.0-32.9,adult Start:11-Jun-2021 Instruction Type:Provider Instructions for Treatment How to Access Health Informa tion Online using Patient Portal and [employer] Apps Indication:BMI 32.0-32.9,adult Start:11-Jun-2021 Instruction Type:Patient Education Patient Instructions Indication:Non-smoker Start:16-May-2021 Instruction Type:Provider Instructions for Treatment How to Access Health Informa tion Online using Patient Portal and [employer] Apps Indication:Non-smoker Start:16-May-2021 Instruction Type:Patient Education Patient Instructions Indication:BMI 31.0-31.9,adult Start:29-Jan-2021 Instruction Type:Provider Instructions for Treatment How to Access Health Informa tion Online using Patient Portal and [employer] Apps Indication:BMI 31.0-31.9,adult Start:29-Jan-2021 Instruction Type:Patient Education Patient Instructions Indication:Non-smoker Start:11-Dec-2020 Instruction Type:Provider Instructions for Treatment How to Access Health Informa tion Online using Patient Portal and [employer] Apps Indication:Non-smoker Start:11-Dec-2020 Instruction Type:Patient Education How to Access Health Informa tion Online using Patient Portal and [employer] Apps Indication:Non-smoker Start:31-Aug-2020 Instruction Type:Patient Education Patient Instructions Indication:Non-smoker Start:31-Aug-2020 Instruction Type:Provider Instructions for Treatment Patient Instructions Indication:Non-smoker Start:10-Aug-2020 Instruction Type:Provider Instructions for Treatment How to Access Health Informa tion Online using Patient Portal and [employer] Apps Indication:Non-smoker Start:10-Aug-2020 Instruction Type:Patient Education How to Access Health Informa tion Online using Patient Portal and [employer] Apps Indication:Non-smoker Start:20-Jul-2020 Instruction Type:Patient Education Patient Instructions Indication:Non-smoker Start:20-Jul-2020 Instruction Type:Provider Instructions for Treatment How to Access Health Informa tion Online using Patient Portal and [employer] Apps Indication:Non-smoker Start:29-Jun-2020 Instruction Type:Patient Education Patient Instructions Indication:Non-smoker Start:29-Jun-2020 Instruction Type:Provider Instructions for Treatment How to Access Health Informa tion Online using Patient Portal and [employer] Apps Indication:Non-smoker Start:07-Jun-2020 Instruction Type:Patient Education Patient Instructions Indication:Non-smoker Start:07-Jun-2020 Instruction Type:Provider Instructions for Treatment How to Access Health Informa tion Online using Patient Portal and [employer] Apps Indication:Non-smoker Start:24-May-2020 Instruction Type:Patient Education Patient Instructions Indication:Non-smoker Start:24-May-2020 Instruction Type:Provider Instructions for Treatment Patient Instructions Indication:Non-smoker Start:08-Mar-2020 Instruction Type:Provider Instructions for Treatment How to Access Health Informa tion Online using Patient Portal and [employer] Apps Indication:Non-smoker Start:08-Mar-2020 Instruction Type:Patient Education obesity counseling Indication:Hypertension Start:23-Dec-2019 Instruction Type:Provider Instructions for Treatment How to access health informa tion online Indication:Non-smoker Start:23-Dec-2019 Instruction Type:Patient Education How to access health informa tion online - Detail Indication:Non-smoker Start:23-Dec-2019 Instruction Type:Patient Education Patient Instructions Indication:Non-smoker Start:23-Dec-2019 Instruction Type:Provider Instructions for Treatment How to access health informa tion online Indication:Non-smoker Start:08-Dec-2019 Instruction Type:Patient Education How to access health informa tion online - Detail Indication:Non-smoker Start:08-Dec-2019 Instruction Type:Patient Education Patient Instructions Indication:Non-smoker Start:08-Dec-2019 Instruction Type:Provider Instructions for Treatment How to access health informa tion online Indication:Non-smoker Start:11-Oct-2019 Instruction Type:Patient Education How to access health informa tion online - Detail Indication:Non-smoker Start:11-Oct-2019 Instruction Type:Patient Education Patient Instructions Indication:Non-smoker Start:11-Oct-2019 Instruction Type:Provider Instructions for Treatment How to access health informa tion online - Detail Indication:Non-smoker Start:21-Jul-2019 Instruction Type:Patient Education How to access health informa tion online Indication:Non-smoker Start:21-Jul-2019 Instruction Type:Patient Education Patient Instructions Indication:Non-smoker Start:21-Jul-2019 Instruction Type:Provider Instructions for Treatment How to access health informa tion online - Detail Indication:BMI 31.0-31.9,adult Start:09-Jun-2019 Instruction Type:Patient Education How to access health informa tion online Indication:BMI 31.0-31.9,adult Start:09-Jun-2019 Instruction Type:Patient Education Patient Instructions Indication:BMI 31.0-31.9,adult Start:09-Jun-2019 Instruction Type:Provider Instructions for Treatment How to access health informa tion online Indication:Non-smoker Start:26-Mar-2019 Instruction Type:Patient Education How to access health informa tion online - Detail Indication:Non-smoker Start:26-Mar-2019 Instruction Type:Patient Education Patient Instructions Indication:Non-smoker Start:26-Mar-2019 Instruction Type:Provider Instructions for Treatment How to access health informa tion online Indication:Non-smoker Start:22-Jan-2019 Instruction Type:Patient Education How to access health informa tion online - Detail Indication:Non-smoker Start:22-Jan-2019 Instruction Type:Patient Education Patient Instructions Indication:Non-smoker Start:22-Jan-2019 Instruction Type:Provider Instructions for Treatment How to access health informa tion online Indication:Non-smoker Start:24-Aug-2018 Instruction Type:Patient Education How to access health informa tion online - Detail Indication:Non-smoker Start:24-Aug-2018 Instruction Type:Patient Education Patient Instructions Indication:Non-smoker Start:24-Aug-2018 Instruction Type:Provider Instructions for Treatment How to access health informa tion online Indication:Non-smoker Start:13-Jul-2018 Instruction Type:Patient Education How to access health informa tion online - Detail Indication:Non-smoker Start:13-Jul-2018 Instruction Type:Patient Education Patient Instructions Indication:Flashing lights Start:13-Jul-2018 Instruction Type:Provider Instructions for Treatment How to access health informa tion online Indication:Non-smoker Start:21-May-2018 Instruction Type:Patient Education How to access health informa tion online - Detail Indication:Non-smoker Start:21-May-2018 Instruction Type:Patient Education Patient Instructions Indication:Non-smoker Start:21-May-2018 Instruction Type:Provider Instructions for Treatment How to access health informa tion online Indication:Non-smoker Start:01-May-2018 Instruction Type:Patient Education How to access health informa tion online - Detail Indication:Non-smoker Start:01-May-2018 Instruction Type:Patient Education Patient Instructions Indication:Non-smoker Start:01-May-2018 Instruction Type:Provider Instructions for Treatment How to access health informa tion online Indication:Non-smoker Start:02-Apr-2018 Instruction Type:Patient Education How to access health informa tion online - Detail Indication:Non-smoker Start:02-Apr-2018 Instruction Type:Patient Education Patient Instructions Indication:Non-smoker Start:02-Apr-2018 Instruction Type:Provider Instructions for Treatment How to access health informa tion online Indication:Hypertension Start:20-Mar-2018 Instruction Type:Patient Education How to access health informa tion online - Detail Indication:Hypertension Start:20-Mar-2018 Instruction Type:Patient Education Patient Instructions Indication:Hypertension Start:20-Mar-2018 Instruction Type:Provider Instructions for Treatment How to access health informa tion online Indication:Non-smoker Start:23-Feb-2018 Instruction Type:Patient Education How to access health informa tion online Indication:Non-smoker Start:23-Feb-2018 Instruction Type:Patient Education How to access health informa tion online - Detail Indication:Non-smoker Start:23-Feb-2018 Instruction Type:Patient Education Patient Instructions Indication:Non-smoker Start:23-Feb-2018 Instruction Type:Provider Instructions for Treatment [facility]; [facility] Work Phone: [phone]* Name Dates Details Patient Instructions Indication:Non-smoker Start:23-May-2022 Instruction Type:Provider Instructions for Treatment How to Access Health Informa tion Online using Patient Portal and [employer] Apps Indication:Non-smoker Start:23-May-2022 Instruction Type:Patient Education Patient Instructions Indication:Encounter for screening mammogram for malignant neoplasm of breast Start:17-May-2022 Instruction Type:Provider Instructions for Treatment How to Access Health Informa tion Online using Patient Portal and [employer] Apps Indication:Encounter for screening mammogram for malignant neoplasm of breast Start:17-May-2022 Instruction Type:Patient Education Patient Instructions Indication:BMI 33.0-33.9,adult Start:11-Feb-2022 Instruction Type:Provider Instructions for Treatment How to Access Health Informa tion Online using Patient Portal and [employer] Apps Indication:BMI 33.0-33.9,adult Start:11-Feb-2022 Instruction Type:Patient Education Patient Instructions Indication:BMI 32.0-32.9,adult Start:07-Nov-2021 Instruction Type:Provider Instructions for Treatment How to Access Health Informa tion Online using Patient Portal and [employer] Apps Indication:BMI 32.0-32.9,adult Start:07-Nov-2021 Instruction Type:Patient Education Patient Instructions Indication:Non-smoker Start:16-Aug-2021 Instruction Type:Provider Instructions for Treatment How to Access Health Informa tion Online using Patient Portal and [employer] Apps Indication:Non-smoker Start:16-Aug-2021 Instruction Type:Patient Education Patient Instructions Indication:BMI 32.0-32.9,adult Start:11-Jun-2021 Instruction Type:Provider Instructions for Treatment How to Access Health Informa tion Online using Patient Portal and [employer] Apps Indication:BMI 32.0-32.9,adult Start:11-Jun-2021 Instruction Type:Patient Education Patient Instructions Indication:Non-smoker Start:16-May-2021 Instruction Type:Provider Instructions for Treatment How to Access Health Informa tion Online using Patient Portal and [employer] Apps Indication:Non-smoker Start:16-May-2021 Instruction Type:Patient Education Patient Instructions Indication:BMI 31.0-31.9,adult Start:29-Jan-2021 Instruction Type:Provider Instructions for Treatment How to Access Health Informa tion Online using Patient Portal and [employer] Apps Indication:BMI 31.0-31.9,adult Start:29-Jan-2021 Instruction Type:Patient Education Patient Instructions Indication:Non-smoker Start:11-Dec-2020 Instruction Type:Provider Instructions for Treatment How to Access Health Informa tion Online using Patient Portal and [employer] Apps Indication:Non-smoker Start:11-Dec-2020 Instruction Type:Patient Education How to Access Health Informa tion Online using Patient Portal and [employer] Apps Indication:Non-smoker Start:31-Aug-2020 Instruction Type:Patient Education Patient Instructions Indication:Non-smoker Start:31-Aug-2020 Instruction Type:Provider Instructions for Treatment Patient Instructions Indication:Non-smoker Start:10-Aug-2020 Instruction Type:Provider Instructions for Treatment How to Access Health Informa tion Online using Patient Portal and [employer] Apps Indication:Non-smoker Start:10-Aug-2020 Instruction Type:Patient Education How to Access Health Informa tion Online using Patient Portal and [employer] Apps Indication:Non-smoker Start:20-Jul-2020 Instruction Type:Patient Education Patient Instructions Indication:Non-smoker Start:20-Jul-2020 Instruction Type:Provider Instructions for Treatment How to Access Health Informa tion Online using Patient Portal and [employer] Apps Indication:Non-smoker Start:29-Jun-2020 Instruction Type:Patient Education Patient Instructions Indication:Non-smoker Start:29-Jun-2020 Instruction Type:Provider Instructions for Treatment How to Access Health Informa tion Online using Patient Portal and [employer] Apps Indication:Non-smoker Start:07-Jun-2020 Instruction Type:Patient Education Patient Instructions Indication:Non-smoker Start:07-Jun-2020 Instruction Type:Provider Instructions for Treatment How to Access Health Informa tion Online using Patient Portal and [employer] Apps Indication:Non-smoker Start:24-May-2020 Instruction Type:Patient Education Patient Instructions Indication:Non-smoker Start:24-May-2020 Instruction Type:Provider Instructions for Treatment Patient Instructions Indication:Non-smoker Start:08-Mar-2020 Instruction Type:Provider Instructions for Treatment How to Access Health Informa tion Online using Patient Portal and [employer] Apps Indication:Non-smoker Start:08-Mar-2020 Instruction Type:Patient Education obesity counseling Indication:Hypertension Start:23-Dec-2019 Instruction Type:Provider Instructions for Treatment How to access health informa tion online Indication:Non-smoker Start:23-Dec-2019 Instruction Type:Patient Education How to access health informa tion online - Detail Indication:Non-smoker Start:23-Dec-2019 Instruction Type:Patient Education Patient Instructions Indication:Non-smoker Start:23-Dec-2019 Instruction Type:Provider Instructions for Treatment How to access health informa tion online Indication:Non-smoker Start:08-Dec-2019 Instruction Type:Patient Education How to access health informa tion online - Detail Indication:Non-smoker Start:08-Dec-2019 Instruction Type:Patient Education Patient Instructions Indication:Non-smoker Start:08-Dec-2019 Instruction Type:Provider Instructions for Treatment How to access health informa tion online Indication:Non-smoker Start:11-Oct-2019 Instruction Type:Patient Education How to access health informa tion online - Detail Indication:Non-smoker Start:11-Oct-2019 Instruction Type:Patient Education Patient Instructions Indication:Non-smoker Start:11-Oct-2019 Instruction Type:Provider Instructions for Treatment How to access health informa tion online - Detail Indication:Non-smoker Start:21-Jul-2019 Instruction Type:Patient Education How to access health informa tion online Indication:Non-smoker Start:21-Jul-2019 Instruction Type:Patient Education Patient Instructions Indication:Non-smoker Start:21-Jul-2019 Instruction Type:Provider Instructions for Treatment How to access health informa tion online - Detail Indication:BMI 31.0-31.9,adult Start:09-Jun-2019 Instruction Type:Patient Education How to access health informa tion online Indication:BMI 31.0-31.9,adult Start:09-Jun-2019 Instruction Type:Patient Education Patient Instructions Indication:BMI 31.0-31.9,adult Start:09-Jun-2019 Instruction Type:Provider Instructions for Treatment How to access health informa tion online Indication:Non-smoker Start:26-Mar-2019 Instruction Type:Patient Education How to access health informa tion online - Detail Indication:Non-smoker Start:26-Mar-2019 Instruction Type:Patient Education Patient Instructions Indication:Non-smoker Start:26-Mar-2019 Instruction Type:Provider Instructions for Treatment How to access health informa tion online Indication:Non-smoker Start:22-Jan-2019 Instruction Type:Patient Education How to access health informa tion online - Detail Indication:Non-smoker Start:22-Jan-2019 Instruction Type:Patient Education Patient Instructions Indication:Non-smoker Start:22-Jan-2019 Instruction Type:Provider Instructions for Treatment How to access health informa tion online Indication:Non-smoker Start:24-Aug-2018 Instruction Type:Patient Education How to access health informa tion online - Detail Indication:Non-smoker Start:24-Aug-2018 Instruction Type:Patient Education Patient Instructions Indication:Non-smoker Start:24-Aug-2018 Instruction Type:Provider Instructions for Treatment How to access health informa tion online Indication:Non-smoker Start:13-Jul-2018 Instruction Type:Patient Education How to access health informa tion online - Detail Indication:Non-smoker Start:13-Jul-2018 Instruction Type:Patient Education Patient Instructions Indication:Flashing lights Start:13-Jul-2018 Instruction Type:Provider Instructions for Treatment How to access health informa tion online Indication:Non-smoker Start:21-May-2018 Instruction Type:Patient Education How to access health informa tion online - Detail Indication:Non-smoker Start:21-May-2018 Instruction Type:Patient Education Patient Instructions Indication:Non-smoker Start:21-May-2018 Instruction Type:Provider Instructions for Treatment How to access health informa tion online Indication:Non-smoker Start:01-May-2018 Instruction Type:Patient Education How to access health informa tion online - Detail Indication:Non-smoker Start:01-May-2018 Instruction Type:Patient Education Patient Instructions Indication:Non-smoker Start:01-May-2018 Instruction Type:Provider Instructions for Treatment How to access health informa tion online Indication:Non-smoker Start:02-Apr-2018 Instruction Type:Patient Education How to access health informa tion online - Detail Indication:Non-smoker Start:02-Apr-2018 Instruction Type:Patient Education Patient Instructions Indication:Non-smoker Start:02-Apr-2018 Instruction Type:Provider Instructions for Treatment How to access health informa tion online Indication:Hypertension Start:20-Mar-2018 Instruction Type:Patient Education How to access health informa tion online - Detail Indication:Hypertension Start:20-Mar-2018 Instruction Type:Patient Education Patient Instructions Indication:Hypertension Start:20-Mar-2018 Instruction Type:Provider Instructions for Treatment How to access health informa tion online Indication:Non-smoker Start:23-Feb-2018 Instruction Type:Patient Education How to access health informa tion online Indication:Non-smoker Start:23-Feb-2018 Instruction Type:Patient Education How to access health informa tion online - Detail Indication:Non-smoker Start:23-Feb-2018 Instruction Type:Patient Education Patient Instructions Indication:Non-smoker Start:23-Feb-2018 Instruction Type:Provider Instructions for Treatment [facility]; [facility] Work Phone: Instructions* Name Dates Details Patient Instructions Indication:Non-smoker Start:23-May-2022 Instruction Type:Provider Instructions for Treatment How to Access Health Informa tion Online using Patient Portal and [employer] Indication:Non-smoker Start:23-May-2022 Instruction Type:Patient Education Patient Instructions Indication:Encounter for screening mammogram for malignant neoplasm of breast Start:17-May-2022 Instruction Type:Provider Instructions for Treatment How to Access Health Informa tion Online using Patient Portal and [employer] Apps Indication:Encounter for screening mammogram for malignant neoplasm of breast Start:17-May-2022 Instruction Type:Patient Education Patient Instructions Indication:BMI 33.0-33.9,adult Start:11-Feb-2022 Instruction Type:Provider Instructions for Treatment How to Access Health Informa tion Online using Patient Portal and [employer] Apps Indication:BMI 33.0-33.9,adult Start:11-Feb-2022 Instruction Type:Patient Education Patient Instructions Indication:BMI 32.0-32.9,adult Start:07-Nov-2021 Instruction Type:Provider Instructions for Treatment How to Access Health Informa tion Online using Patient Portal and [employer] Apps Indication:BMI 32.0-32.9,adult Start:07-Nov-2021 Instruction Type:Patient Education Patient Instructions Indication:Non-smoker Start:16-Aug-2021 Instruction Type:Provider Instructions for Treatment How to Access Health Informa tion Online using Patient Portal and [employer] Apps Indication:Non-smoker Start:16-Aug-2021 Instruction Type:Patient Education Patient Instructions Indication:BMI 32.0-32.9,adult Start:11-Jun-2021 Instruction Type:Provider Instructions for Treatment How to Access Health Informa tion Online using Patient Portal and [employer] Apps Indication:BMI 32.0-32.9,adult Start:11-Jun-2021 Instruction Type:Patient Education Patient Instructions Indication:Non-smoker Start:16-May-2021 Instruction Type:Provider Instructions for Treatment How to Access Health Informa tion Online using Patient Portal and [employer] Apps Indication:Non-smoker Start:16-May-2021 Instruction Type:Patient Education Patient Instructions Indication:BMI 31.0-31.9,adult Start:29-Jan-2021 Instruction Type:Provider Instructions for Treatment How to Access Health Informa tion Online using Patient Portal and [employer] Apps Indication:BMI 31.0-31.9,adult Start:29-Jan-2021 Instruction Type:Patient Education Patient Instructions Indication:Non-smoker Start:11-Dec-2020 Instruction Type:Provider Instructions for Treatment How to Access Health Informa tion Online using Patient Portal and [employer] Apps Indication:Non-smoker Start:11-Dec-2020 Instruction Type:Patient Education How to Access Health Informa tion Online using Patient Portal and [employer] Apps Indication:Non-smoker Start:31-Aug-2020 Instruction Type:Patient Education Patient Instructions Indication:Non-smoker Start:31-Aug-2020 Instruction Type:Provider Instructions for Treatment Patient Instructions Indication:Non-smoker Start:10-Aug-2020 Instruction Type:Provider Instructions for Treatment How to Access Health Informa tion Online using Patient Portal and [employer] Apps Indication:Non-smoker Start:10-Aug-2020 Instruction Type:Patient Education How to Access Health Informa tion Online using Patient Portal and [employer] Apps Indication:Non-smoker Start:20-Jul-2020 Instruction Type:Patient Education Patient Instructions Indication:Non-smoker Start:20-Jul-2020 Instruction Type:Provider Instructions for Treatment How to Access Health Informa tion Online using Patient Portal and [employer] Apps Indication:Non-smoker Start:29-Jun-2020 Instruction Type:Patient Education Patient Instructions Indication:Non-smoker Start:29-Jun-2020 Instruction Type:Provider Instructions for Treatment How to Access Health Informa tion Online using Patient Portal and [employer] Apps Indication:Non-smoker Start:07-Jun-2020 Instruction Type:Patient Education Patient Instructions Indication:Non-smoker Start:07-Jun-2020 Instruction Type:Provider Instructions for Treatment How to Access Health Informa tion Online using Patient Portal and [employer] Apps Indication:Non-smoker Start:24-May-2020 Instruction Type:Patient Education Patient Instructions Indication:Non-smoker Start:24-May-2020 Instruction Type:Provider Instructions for Treatment Patient Instructions Indication:Non-smoker Start:08-Mar-2020 Instruction Type:Provider Instructions for Treatment How to Access Health Informa tion Online using Patient Portal and [employer] Apps Indication:Non-smoker Start:08-Mar-2020 Instruction Type:Patient Education obesity counseling Indication:Hypertension Start:23-Dec-2019 Instruction Type:Provider Instructions for Treatment How to access health informa tion online Indication:Non-smoker Start:23-Dec-2019 Instruction Type:Patient Education How to access health informa tion online - Detail Indication:Non-smoker Start:23-Dec-2019 Instruction Type:Patient Education Patient Instructions Indication:Non-smoker Start:23-Dec-2019 Instruction Type:Provider Instructions for Treatment How to access health informa tion online Indication:Non-smoker Start:08-Dec-2019 Instruction Type:Patient Education How to access health informa tion online - Detail Indication:Non-smoker Start:08-Dec-2019 Instruction Type:Patient Education Patient Instructions Indication:Non-smoker Start:08-Dec-2019 Instruction Type:Provider Instructions for Treatment How to access health informa tion online Indication:Non-smoker Start:11-Oct-2019 Instruction Type:Patient Education How to access health informa tion online - Detail Indication:Non-smoker Start:11-Oct-2019 Instruction Type:Patient Education Patient Instructions Indication:Non-smoker Start:11-Oct-2019 Instruction Type:Provider Instructions for Treatment How to access health informa tion online - Detail Indication:Non-smoker Start:21-Jul-2019 Instruction Type:Patient Education How to access health informa tion online Indication:Non-smoker Start:21-Jul-2019 Instruction Type:Patient Education Patient Instructions Indication:Non-smoker Start:21-Jul-2019 Instruction Type:Provider Instructions for Treatment How to access health informa tion online - Detail Indication:BMI 31.0-31.9,adult Start:09-Jun-2019 Instruction Type:Patient Education How to access health informa tion online Indication:BMI 31.0-31.9,adult Start:09-Jun-2019 Instruction Type:Patient Education Patient Instructions Indication:BMI 31.0-31.9,adult Start:09-Jun-2019 Instruction Type:Provider Instructions for Treatment How to access health informa tion online Indication:Non-smoker Start:26-Mar-2019 Instruction Type:Patient Education How to access health informa tion online - Detail Indication:Non-smoker Start:26-Mar-2019 Instruction Type:Patient Education Patient Instructions Indication:Non-smoker Start:26-Mar-2019 Instruction Type:Provider Instructions for Treatment How to access health informa tion online Indication:Non-smoker Start:22-Jan-2019 Instruction Type:Patient Education How to access health informa tion online - Detail Indication:Non-smoker Start:22-Jan-2019 Instruction Type:Patient Education Patient Instructions Indication:Non-smoker Start:22-Jan-2019 Instruction Type:Provider Instructions for Treatment How to access health informa tion online Indication:Non-smoker Start:24-Aug-2018 Instruction Type:Patient Education How to access health informa tion online - Detail Indication:Non-smoker Start:24-Aug-2018 Instruction Type:Patient Education Patient Instructions Indication:Non-smoker Start:24-Aug-2018 Instruction Type:Provider Instructions for Treatment How to access health informa tion online Indication:Non-smoker Start:13-Jul-2018 Instruction Type:Patient Education How to access health informa tion online - Detail Indication:Non-smoker Start:13-Jul-2018 Instruction Type:Patient Education Patient Instructions Indication:Flashing lights Start:13-Jul-2018 Instruction Type:Provider Instructions for Treatment How to access health informa tion online Indication:Non-smoker Start:21-May-2018 Instruction Type:Patient Education How to access health informa tion online - Detail Indication:Non-smoker Start:21-May-2018 Instruction Type:Patient Education Patient Instructions Indication:Non-smoker Start:21-May-2018 Instruction Type:Provider Instructions for Treatment How to access health informa tion online Indication:Non-smoker Start:01-May-2018 Instruction Type:Patient Education How to access health informa tion online - Detail Indication:Non-smoker Start:01-May-2018 Instruction Type:Patient Education Patient Instructions Indication:Non-smoker Start:01-May-2018 Instruction Type:Provider Instructions for Treatment How to access health informa tion online Indication:Non-smoker Start:02-Apr-2018 Instruction Type:Patient Education How to access health informa tion online - Detail Indication:Non-smoker Start:02-Apr-2018 Instruction Type:Patient Education Patient Instructions Indication:Non-smoker Start:02-Apr-2018 Instruction Type:Provider Instructions for Treatment How to access health informa tion online Indication:Hypertension Start:20-Mar-2018 Instruction Type:Patient Education How to access health informa tion online - Detail Indication:Hypertension Start:20-Mar-2018 Instruction Type:Patient Education Patient Instructions Indication:Hypertension Start:20-Mar-2018 Instruction Type:Provider Instructions for Treatment How to access health informa tion online Indication:Non-smoker Start:23-Feb-2018 Instruction Type:Patient Education How to access health informa tion online Indication:Non-smoker Start:23-Feb-2018 Instruction Type:Patient Education How to access health informa tion online - Detail Indication:Non-smoker Start:23-Feb-2018 Instruction Type:Patient Education Patient Instructions Indication:Non-smoker Start:23-Feb-2018 Instruction Type:Provider Instructions for Treatment [facility]; [facility] Work Phone: Instructions* Name Dates Details Patient Instructions Indication:Non-smoker Start:23-May-2022 Instruction Type:Provider Instructions for Treatment How to Access Health Informa tion Online using Patient Portal and [employer] Apps Indication:Non-smoker Start:23-May-2022 Instruction Type:Patient Education Patient Instructions Indication:Encounter for screening mammogram for malignant neoplasm of breast Start:17-May-2022 Instruction Type:Provider Instructions for Treatment How to Access Health Informa tion Online using Patient Portal and [employer] Apps Indication:Encounter for screening mammogram for malignant neoplasm of breast Start:17-May-2022 Instruction Type:Patient Education Patient Instructions Indication:BMI 33.0-33.9,adult Start:11-Feb-2022 Instruction Type:Provider Instructions for Treatment How to Access Health Informa tion Online using Patient Portal and [employer] Apps Indication:BMI 33.0-33.9,adult Start:11-Feb-2022 Instruction Type:Patient Education Patient Instructions Indication:BMI 32.0-32.9,adult Start:07-Nov-2021 Instruction Type:Provider Instructions for Treatment How to Access Health Informa tion Online using Patient Portal and [employer] Indication:BMI 32.0-32.9,adult Start:07-Nov-2021 Instruction Type:Patient Education Patient Instructions Indication:Non-smoker Start:16-Aug-2021 Instruction Type:Provider Instructions for Treatment How to Access Health Informa tion Online using Patient Portal and [employer] Indication:Non-smoker Start:16-Aug-2021 Instruction Type:Patient Education Patient Instructions Indication:BMI 32.0-32.9,adult Start:11-Jun-2021 Instruction Type:Provider Instructions for Treatment How to Access Health Informa tion Online using Patient Portal and [employer] Indication:BMI 32.0-32.9,adult Start:11-Jun-2021 Instruction Type:Patient Education Patient Instructions Indication:Non-smoker Start:16-May-2021 Instruction Type:Provider Instructions for Treatment How to Access Health Informa tion Online using Patient Portal and [employer] Indication:Non-smoker Start:16-May-2021 Instruction Type:Patient Education Patient Instructions Indication:BMI 31.0-31.9,adult Start:29-Jan-2021 Instruction Type:Provider Instructions for Treatment How to Access Health Informa tion Online using Patient Portal and [employer] Apps Indication:BMI 31.0-31.9,adult Start:29-Jan-2021 Instruction Type:Patient Education Patient Instructions Indication:Non-smoker Start:11-Dec-2020 Instruction Type:Provider Instructions for Treatment How to Access Health Informa tion Online using Patient Portal and [employer] Indication:Non-smoker Start:11-Dec-2020 Instruction Type:Patient Education How to Access Health Informa tion Online using Patient Portal and [employer] Apps Indication:Non-smoker Start:31-Aug-2020 Instruction Type:Patient Education Patient Instructions Indication:Non-smoker Start:31-Aug-2020 Instruction Type:Provider Instructions for Treatment Patient Instructions Indication:Non-smoker Start:10-Aug-2020 Instruction Type:Provider Instructions for Treatment How to Access Health Informa tion Online using Patient Portal and [employer] Indication:Non-smoker Start:10-Aug-2020 Instruction Type:Patient Education How to Access Health Informa tion Online using Patient Portal and [employer] Apps Indication:Non-smoker Start:20-Jul-2020 Instruction Type:Patient Education Patient Instructions Indication:Non-smoker Start:20-Jul-2020 Instruction Type:Provider Instructions for Treatment How to Access Health Informa tion Online using Patient Portal and [employer] Apps Indication:Non-smoker Start:29-Jun-2020 Instruction Type:Patient Education Patient Instructions Indication:Non-smoker Start:29-Jun-2020 Instruction Type:Provider Instructions for Treatment How to Access Health Informa tion Online using Patient Portal and [employer] Apps Indication:Non-smoker Start:07-Jun-2020 Instruction Type:Patient Education Patient Instructions Indication:Non-smoker Start:07-Jun-2020 Instruction Type:Provider Instructions for Treatment How to Access Health Informa tion Online using Patient Portal and [employer] Apps Indication:Non-smoker Start:24-May-2020 Instruction Type:Patient Education Patient Instructions Indication:Non-smoker Start:24-May-2020 Instruction Type:Provider Instructions for Treatment Patient Instructions Indication:Non-smoker Start:08-Mar-2020 Instruction Type:Provider Instructions for Treatment How to Access Health Informa tion Online using Patient Portal and [employer] Apps Indication:Non-smoker Start:08-Mar-2020 Instruction Type:Patient Education obesity counseling Indication:Hypertension Start:23-Dec-2019 Instruction Type:Provider Instructions for Treatment How to access health informa tion online Indication:Non-smoker Start:23-Dec-2019 Instruction Type:Patient Education How to access health informa tion online - Detail Indication:Non-smoker Start:23-Dec-2019 Instruction Type:Patient Education Patient Instructions Indication:Non-smoker Start:23-Dec-2019 Instruction Type:Provider Instructions for Treatment How to access health informa tion online Indication:Non-smoker Start:08-Dec-2019 Instruction Type:Patient Education How to access health informa tion online - Detail Indication:Non-smoker Start:08-Dec-2019 Instruction Type:Patient Education Patient Instructions Indication:Non-smoker Start:08-Dec-2019 Instruction Type:Provider Instructions for Treatment How to access health informa tion online Indication:Non-smoker Start:11-Oct-2019 Instruction Type:Patient Education How to access health informa tion online - Detail Indication:Non-smoker Start:11-Oct-2019 Instruction Type:Patient Education Patient Instructions Indication:Non-smoker Start:11-Oct-2019 Instruction Type:Provider Instructions for Treatment How to access health informa tion online - Detail Indication:Non-smoker Start:21-Jul-2019 Instruction Type:Patient Education How to access health informa tion online Indication:Non-smoker Start:21-Jul-2019 Instruction Type:Patient Education Patient Instructions Indication:Non-smoker Start:21-Jul-2019 Instruction Type:Provider Instructions for Treatment How to access health informa tion online - Detail Indication:BMI 31.0-31.9,adult Start:09-Jun-2019 Instruction Type:Patient Education How to access health informa tion online Indication:BMI 31.0-31.9,adult Start:09-Jun-2019 Instruction Type:Patient Education Patient Instructions Indication:BMI 31.0-31.9,adult Start:09-Jun-2019 Instruction Type:Provider Instructions for Treatment How to access health informa tion online Indication:Non-smoker Start:26-Mar-2019 Instruction Type:Patient Education How to access health informa tion online - Detail Indication:Non-smoker Start:26-Mar-2019 Instruction Type:Patient Education Patient Instructions Indication:Non-smoker Start:26-Mar-2019 Instruction Type:Provider Instructions for Treatment How to access health informa tion online Indication:Non-smoker Start:22-Jan-2019 Instruction Type:Patient Education How to access health informa tion online - Detail Indication:Non-smoker Start:22-Jan-2019 Instruction Type:Patient Education Patient Instructions Indication:Non-smoker Start:22-Jan-2019 Instruction Type:Provider Instructions for Treatment How to access health informa tion online Indication:Non-smoker Start:24-Aug-2018 Instruction Type:Patient Education How to access health informa tion online - Detail Indication:Non-smoker Start:24-Aug-2018 Instruction Type:Patient Education Patient Instructions Indication:Non-smoker Start:24-Aug-2018 Instruction Type:Provider Instructions for Treatment How to access health informa tion online Indication:Non-smoker Start:13-Jul-2018 Instruction Type:Patient Education How to access health informa tion online - Detail Indication:Non-smoker Start:13-Jul-2018 Instruction Type:Patient Education Patient Instructions Indication:Flashing lights Start:13-Jul-2018 Instruction Type:Provider Instructions for Treatment How to access health informa tion online Indication:Non-smoker Start:21-May-2018 Instruction Type:Patient Education How to access health informa tion online - Detail Indication:Non-smoker Start:21-May-2018 Instruction Type:Patient Education Patient Instructions Indication:Non-smoker Start:21-May-2018 Instruction Type:Provider Instructions for Treatment How to access health informa tion online Indication:Non-smoker Start:01-May-2018 Instruction Type:Patient Education How to access health informa tion online - Detail Indication:Non-smoker Start:01-May-2018 Instruction Type:Patient Education Patient Instructions Indication:Non-smoker Start:01-May-2018 Instruction Type:Provider Instructions for Treatment How to access health informa tion online Indication:Non-smoker Start:02-Apr-2018 Instruction Type:Patient Education How to access health informa tion online - Detail Indication:Non-smoker Start:02-Apr-2018 Instruction Type:Patient Education Patient Instructions Indication:Non-smoker Start:02-Apr-2018 Instruction Type:Provider Instructions for Treatment How to access health informa tion online Indication:Hypertension Start:20-Mar-2018 Instruction Type:Patient Education How to access health informa tion online - Detail Indication:Hypertension Start:20-Mar-2018 Instruction Type:Patient Education Patient Instructions Indication:Hypertension Start:20-Mar-2018 Instruction Type:Provider Instructions for Treatment How to access health informa tion online Indication:Non-smoker Start:23-Feb-2018 Instruction Type:Patient Education How to access health informa tion online Indication:Non-smoker Start:23-Feb-2018 Instruction Type:Patient Education How to access health informa tion online - Detail Indication:Non-smoker Start:23-Feb-2018 Instruction Type:Patient Education Patient Instructions Indication:Non-smoker Start:23-Feb-2018 Instruction Type:Provider Instructions for Treatment [facility]; [facility] Work Phone: Instructions* Name Dates Details Patient Instructions Indication:Non-smoker Start:23-May-2022 Instruction Type:Provider Instructions for Treatment How to Access Health Informa tion Online using Patient Portal and [employer] Apps Indication:Non-smoker Start:23-May-2022 Instruction Type:Patient Education Patient Instructions Indication:Encounter for screening mammogram for malignant neoplasm of breast Start:17-May-2022 Instruction Type:Provider Instructions for Treatment How to Access Health Informa tion Online using Patient Portal and [employer] Apps Indication:Encounter for screening mammogram for malignant neoplasm of breast Start:17-May-2022 Instruction Type:Patient Education Patient Instructions Indication:BMI 33.0-33.9,adult Start:11-Feb-2022 Instruction Type:Provider Instructions for Treatment How to Access Health Informa tion Online using Patient Portal and [employer] Indication:BMI 33.0-33.9,adult Start:11-Feb-2022 Instruction Type:Patient Education Patient Instructions Indication:BMI 32.0-32.9,adult Start:07-Nov-2021 Instruction Type:Provider Instructions for Treatment How to Access Health Informa tion Online using Patient Portal and [employer] Indication:BMI 32.0-32.9,adult Start:07-Nov-2021 Instruction Type:Patient Education Patient Instructions Indication:Non-smoker Start:16-Aug-2021 Instruction Type:Provider Instructions for Treatment How to Access Health Informa tion Online using Patient Portal and [employer] Indication:Non-smoker Start:16-Aug-2021 Instruction Type:Patient Education Patient Instructions Indication:BMI 32.0-32.9,adult Start:11-Jun-2021 Instruction Type:Provider Instructions for Treatment How to Access Health Informa tion Online using Patient Portal and [employer] Indication:BMI 32.0-32.9,adult Start:11-Jun-2021 Instruction Type:Patient Education Patient Instructions Indication:Non-smoker Start:16-May-2021 Instruction Type:Provider Instructions for Treatment How to Access Health Informa tion Online using Patient Portal and [employer] Indication:Non-smoker Start:16-May-2021 Instruction Type:Patient Education Patient Instructions Indication:BMI 31.0-31.9,adult Start:29-Jan-2021 Instruction Type:Provider Instructions for Treatment How to Access Health Informa tion Online using Patient Portal and [employer] Indication:BMI 31.0-31.9,adult Start:29-Jan-2021 Instruction Type:Patient Education Patient Instructions Indication:Non-smoker Start:11-Dec-2020 Instruction Type:Provider Instructions for Treatment How to Access Health Informa tion Online using Patient Portal and [employer] Indication:Non-smoker Start:11-Dec-2020 Instruction Type:Patient Education How to Access Health Informa tion Online using Patient Portal and [employer] Indication:Non-smoker Start:31-Aug-2020 Instruction Type:Patient Education Patient Instructions Indication:Non-smoker Start:31-Aug-2020 Instruction Type:Provider Instructions for Treatment Patient Instructions Indication:Non-smoker Start:10-Aug-2020 Instruction Type:Provider Instructions for Treatment How to Access Health Informa tion Online using Patient Portal and [employer] Indication:Non-smoker Start:10-Aug-2020 Instruction Type:Patient Education How to Access Health Informa tion Online using Patient Portal and [employer] Indication:Non-smoker Start:20-Jul-2020 Instruction Type:Patient Education Patient Instructions Indication:Non-smoker Start:20-Jul-2020 Instruction Type:Provider Instructions for Treatment How to Access Health Informa tion Online using Patient Portal and [employer] Indication:Non-smoker Start:29-Jun-2020 Instruction Type:Patient Education Patient Instructions Indication:Non-smoker Start:29-Jun-2020 Instruction Type:Provider Instructions for Treatment How to Access Health Informa tion Online using Patient Portal and [employer] Indication:Non-smoker Start:07-Jun-2020 Instruction Type:Patient Education Patient Instructions Indication:Non-smoker Start:07-Jun-2020 Instruction Type:Provider Instructions for Treatment How to Access Health Informa tion Online using Patient Portal and [employer] Indication:Non-smoker Start:24-May-2020 Instruction Type:Patient Education Patient Instructions Indication:Non-smoker Start:24-May-2020 Instruction Type:Provider Instructions for Treatment Patient Instructions Indication:Non-smoker Start:08-Mar-2020 Instruction Type:Provider Instructions for Treatment How to Access Health Informa tion Online using Patient Portal and [employer] Apps Indication:Non-smoker Start:08-Mar-2020 Instruction Type:Patient Education obesity counseling Indication:Hypertension Start:23-Dec-2019 Instruction Type:Provider Instructions for Treatment How to access health informa tion online Indication:Non-smoker Start:23-Dec-2019 Instruction Type:Patient Education How to access health informa tion online - Detail Indication:Non-smoker Start:23-Dec-2019 Instruction Type:Patient Education Patient Instructions Indication:Non-smoker Start:23-Dec-2019 Instruction Type:Provider Instructions for Treatment How to access health informa tion online Indication:Non-smoker Start:08-Dec-2019 Instruction Type:Patient Education How to access health informa tion online - Detail Indication:Non-smoker Start:08-Dec-2019 Instruction Type:Patient Education Patient Instructions Indication:Non-smoker Start:08-Dec-2019 Instruction Type:Provider Instructions for Treatment How to access health informa tion online Indication:Non-smoker Start:11-Oct-2019 Instruction Type:Patient Education How to access health informa tion online - Detail Indication:Non-smoker Start:11-Oct-2019 Instruction Type:Patient Education Patient Instructions Indication:Non-smoker Start:11-Oct-2019 Instruction Type:Provider Instructions for Treatment How to access health informa tion online - Detail Indication:Non-smoker Start:21-Jul-2019 Instruction Type:Patient Education How to access health informa tion online Indication:Non-smoker Start:21-Jul-2019 Instruction Type:Patient Education Patient Instructions Indication:Non-smoker Start:21-Jul-2019 Instruction Type:Provider Instructions for Treatment How to access health informa tion online - Detail Indication:BMI 31.0-31.9,adult Start:09-Jun-2019 Instruction Type:Patient Education How to access health informa tion online Indication:BMI 31.0-31.9,adult Start:09-Jun-2019 Instruction Type:Patient Education Patient Instructions Indication:BMI 31.0-31.9,adult Start:09-Jun-2019 Instruction Type:Provider Instructions for Treatment How to access health informa tion online Indication:Non-smoker Start:26-Mar-2019 Instruction Type:Patient Education How to access health informa tion online - Detail Indication:Non-smoker Start:26-Mar-2019 Instruction Type:Patient Education Patient Instructions Indication:Non-smoker Start:26-Mar-2019 Instruction Type:Provider Instructions for Treatment How to access health informa tion online Indication:Non-smoker Start:22-Jan-2019 Instruction Type:Patient Education How to access health informa tion online - Detail Indication:Non-smoker Start:22-Jan-2019 Instruction Type:Patient Education Patient Instructions Indication:Non-smoker Start:22-Jan-2019 Instruction Type:Provider Instructions for Treatment How to access health informa tion online Indication:Non-smoker Start:24-Aug-2018 Instruction Type:Patient Education How to access health informa tion online - Detail Indication:Non-smoker Start:24-Aug-2018 Instruction Type:Patient Education Patient Instructions Indication:Non-smoker Start:24-Aug-2018 Instruction Type:Provider Instructions for Treatment How to access health informa tion online Indication:Non-smoker Start:13-Jul-2018 Instruction Type:Patient Education How to access health informa tion online - Detail Indication:Non-smoker Start:13-Jul-2018 Instruction Type:Patient Education Patient Instructions Indication:Flashing lights Start:13-Jul-2018 Instruction Type:Provider Instructions for Treatment How to access health informa tion online Indication:Non-smoker Start:21-May-2018 Instruction Type:Patient Education How to access health informa tion online - Detail Indication:Non-smoker Start:21-May-2018 Instruction Type:Patient Education Patient Instructions Indication:Non-smoker Start:21-May-2018 Instruction Type:Provider Instructions for Treatment How to access health informa tion online Indication:Non-smoker Start:01-May-2018 Instruction Type:Patient Education How to access health informa tion online - Detail Indication:Non-smoker Start:01-May-2018 Instruction Type:Patient Education Patient Instructions Indication:Non-smoker Start:01-May-2018 Instruction Type:Provider Instructions for Treatment How to access health informa tion online Indication:Non-smoker Start:02-Apr-2018 Instruction Type:Patient Education How to access health informa tion online - Detail Indication:Non-smoker Start:02-Apr-2018 Instruction Type:Patient Education Patient Instructions Indication:Non-smoker Start:02-Apr-2018 Instruction Type:Provider Instructions for Treatment How to access health informa tion online Indication:Hypertension Start:20-Mar-2018 Instruction Type:Patient Education How to access health informa tion online - Detail Indication:Hypertension Start:20-Mar-2018 Instruction Type:Patient Education Patient Instructions Indication:Hypertension Start:20-Mar-2018 Instruction Type:Provider Instructions for Treatment How to access health informa tion online Indication:Non-smoker Start:23-Feb-2018 Instruction Type:Patient Education How to access health informa tion online Indication:Non-smoker Start:23-Feb-2018 Instruction Type:Patient Education How to access health informa tion online - Detail Indication:Non-smoker Start:23-Feb-2018 Instruction Type:Patient Education Patient Instructions Indication:Non-smoker Start:23-Feb-2018 Instruction Type:Provider Instructions for Treatment [facility]; [facility] Work Phone: Instructions* Name Dates Details Patient Instructions Indication:Non-smoker Start:12-Aug-2022 Instruction Type:Provider Instructions for Treatment How to Access Health Informa tion Online using Patient Portal and [employer] Apps Indication:Non-smoker Start:12-Aug-2022 Instruction Type:Patient Education Patient Instructions Indication:Non-smoker Start:23-May-2022 Instruction Type:Provider Instructions for Treatment How to Access Health Informa tion Online using Patient Portal and [employer] Apps Indication:Non-smoker Start:23-May-2022 Instruction Type:Patient Education Patient Instructions Indication:Encounter for screening mammogram for malignant neoplasm of breast Start:17-May-2022 Instruction Type:Provider Instructions for Treatment How to Access Health Informa tion Online using Patient Portal and [employer] Apps Indication:Encounter for screening mammogram for malignant neoplasm of breast Start:17-May-2022 Instruction Type:Patient Education Patient Instructions Indication:BMI 33.0-33.9,adult Start:11-Feb-2022 Instruction Type:Provider Instructions for Treatment How to Access Health Informa tion Online using Patient Portal and [employer] Apps Indication:BMI 33.0-33.9,adult Start:11-Feb-2022 Instruction Type:Patient Education Patient Instructions Indication:BMI 32.0-32.9,adult Start:07-Nov-2021 Instruction Type:Provider Instructions for Treatment How to Access Health Informa tion Online using Patient Portal and [employer] Apps Indication:BMI 32.0-32.9,adult Start:07-Nov-2021 Instruction Type:Patient Education Patient Instructions Indication:Non-smoker Start:16-Aug-2021 Instruction Type:Provider Instructions for Treatment How to Access Health Informa tion Online using Patient Portal and [employer] Apps Indication:Non-smoker Start:16-Aug-2021 Instruction Type:Patient Education Patient Instructions Indication:BMI 32.0-32.9,adult Start:11-Jun-2021 Instruction Type:Provider Instructions for Treatment How to Access Health Informa tion Online using Patient Portal and [employer] Apps Indication:BMI 32.0-32.9,adult Start:11-Jun-2021 Instruction Type:Patient Education Patient Instructions Indication:Non-smoker Start:16-May-2021 Instruction Type:Provider Instructions for Treatment How to Access Health Informa tion Online using Patient Portal and [employer] Apps Indication:Non-smoker Start:16-May-2021 Instruction Type:Patient Education Patient Instructions Indication:BMI 31.0-31.9,adult Start:29-Jan-2021 Instruction Type:Provider Instructions for Treatment How to Access Health Informa tion Online using Patient Portal and [employer] Apps Indication:BMI 31.0-31.9,adult Start:29-Jan-2021 Instruction Type:Patient Education Patient Instructions Indication:Non-smoker Start:11-Dec-2020 Instruction Type:Provider Instructions for Treatment How to Access Health Informa tion Online using Patient Portal and [employer] Apps Indication:Non-smoker Start:11-Dec-2020 Instruction Type:Patient Education How to Access Health Informa tion Online using Patient Portal and [employer] Apps Indication:Non-smoker Start:31-Aug-2020 Instruction Type:Patient Education Patient Instructions Indication:Non-smoker Start:31-Aug-2020 Instruction Type:Provider Instructions for Treatment Patient Instructions Indication:Non-smoker Start:10-Aug-2020 Instruction Type:Provider Instructions for Treatment How to Access Health Informa tion Online using Patient Portal and [employer] Apps Indication:Non-smoker Start:10-Aug-2020 Instruction Type:Patient Education How to Access Health Informa tion Online using Patient Portal and [employer] Apps Indication:Non-smoker Start:20-Jul-2020 Instruction Type:Patient Education Patient Instructions Indication:Non-smoker Start:20-Jul-2020 Instruction Type:Provider Instructions for Treatment How to Access Health Informa tion Online using Patient Portal and [employer] Apps Indication:Non-smoker Start:29-Jun-2020 Instruction Type:Patient Education Patient Instructions Indication:Non-smoker Start:29-Jun-2020 Instruction Type:Provider Instructions for Treatment How to Access Health Informa tion Online using Patient Portal and [employer] Apps Indication:Non-smoker Start:07-Jun-2020 Instruction Type:Patient Education Patient Instructions Indication:Non-smoker Start:07-Jun-2020 Instruction Type:Provider Instructions for Treatment How to Access Health Informa tion Online using Patient Portal and [employer] Apps Indication:Non-smoker Start:24-May-2020 Instruction Type:Patient Education Patient Instructions Indication:Non-smoker Start:24-May-2020 Instruction Type:Provider Instructions for Treatment Patient Instructions Indication:Non-smoker Start:08-Mar-2020 Instruction Type:Provider Instructions for Treatment How to Access Health Informa tion Online using Patient Portal and [employer] Apps Indication:Non-smoker Start:08-Mar-2020 Instruction Type:Patient Education obesity counseling Indication:Hypertension Start:23-Dec-2019 Instruction Type:Provider Instructions for Treatment How to access health informa tion online Indication:Non-smoker Start:23-Dec-2019 Instruction Type:Patient Education How to access health informa tion online - Detail Indication:Non-smoker Start:23-Dec-2019 Instruction Type:Patient Education Patient Instructions Indication:Non-smoker Start:23-Dec-2019 Instruction Type:Provider Instructions for Treatment How to access health informa tion online Indication:Non-smoker Start:08-Dec-2019 Instruction Type:Patient Education How to access health informa tion online - Detail Indication:Non-smoker Start:08-Dec-2019 Instruction Type:Patient Education Patient Instructions Indication:Non-smoker Start:08-Dec-2019 Instruction Type:Provider Instructions for Treatment How to access health informa tion online Indication:Non-smoker Start:11-Oct-2019 Instruction Type:Patient Education How to access health informa tion online - Detail Indication:Non-smoker Start:11-Oct-2019 Instruction Type:Patient Education Patient Instructions Indication:Non-smoker Start:11-Oct-2019 Instruction Type:Provider Instructions for Treatment How to access health informa tion online - Detail Indication:Non-smoker Start:21-Jul-2019 Instruction Type:Patient Education How to access health informa tion online Indication:Non-smoker Start:21-Jul-2019 Instruction Type:Patient Education Patient Instructions Indication:Non-smoker Start:21-Jul-2019 Instruction Type:Provider Instructions for Treatment How to access health informa tion online - Detail Indication:BMI 31.0-31.9,adult Start:09-Jun-2019 Instruction Type:Patient Education How to access health informa tion online Indication:BMI 31.0-31.9,adult Start:09-Jun-2019 Instruction Type:Patient Education Patient Instructions Indication:BMI 31.0-31.9,adult Start:09-Jun-2019 Instruction Type:Provider Instructions for Treatment How to access health informa tion online Indication:Non-smoker Start:26-Mar-2019 Instruction Type:Patient Education How to access health informa tion online - Detail Indication:Non-smoker Start:26-Mar-2019 Instruction Type:Patient Education Patient Instructions Indication:Non-smoker Start:26-Mar-2019 Instruction Type:Provider Instructions for Treatment How to access health informa tion online Indication:Non-smoker Start:22-Jan-2019 Instruction Type:Patient Education How to access health informa tion online - Detail Indication:Non-smoker Start:22-Jan-2019 Instruction Type:Patient Education Patient Instructions Indication:Non-smoker Start:22-Jan-2019 Instruction Type:Provider Instructions for Treatment How to access health informa tion online Indication:Non-smoker Start:24-Aug-2018 Instruction Type:Patient Education How to access health informa tion online - Detail Indication:Non-smoker Start:24-Aug-2018 Instruction Type:Patient Education Patient Instructions Indication:Non-smoker Start:24-Aug-2018 Instruction Type:Provider Instructions for Treatment How to access health informa tion online Indication:Non-smoker Start:13-Jul-2018 Instruction Type:Patient Education How to access health informa tion online - Detail Indication:Non-smoker Start:13-Jul-2018 Instruction Type:Patient Education Patient Instructions Indication:Flashing lights Start:13-Jul-2018 Instruction Type:Provider Instructions for Treatment How to access health informa tion online Indication:Non-smoker Start:21-May-2018 Instruction Type:Patient Education How to access health informa tion online - Detail Indication:Non-smoker Start:21-May-2018 Instruction Type:Patient Education Patient Instructions Indication:Non-smoker Start:21-May-2018 Instruction Type:Provider Instructions for Treatment How to access health informa tion online Indication:Non-smoker Start:01-May-2018 Instruction Type:Patient Education How to access health informa tion online - Detail Indication:Non-smoker Start:01-May-2018 Instruction Type:Patient Education Patient Instructions Indication:Non-smoker Start:01-May-2018 Instruction Type:Provider Instructions for Treatment How to access health informa tion online Indication:Non-smoker Start:02-Apr-2018 Instruction Type:Patient Education How to access health informa tion online - Detail Indication:Non-smoker Start:02-Apr-2018 Instruction Type:Patient Education Patient Instructions Indication:Non-smoker Start:02-Apr-2018 Instruction Type:Provider Instructions for Treatment How to access health informa tion online Indication:Hypertension Start:20-Mar-2018 Instruction Type:Patient Education How to access health informa tion online - Detail Indication:Hypertension Start:20-Mar-2018 Instruction Type:Patient Education Patient Instructions Indication:Hypertension Start:20-Mar-2018 Instruction Type:Provider Instructions for Treatment How to access health informa tion online Indication:Non-smoker Start:23-Feb-2018 Instruction Type:Patient Education How to access health informa tion online Indication:Non-smoker Start:23-Feb-2018 Instruction Type:Patient Education How to access health informa tion online - Detail Indication:Non-smoker Start:23-Feb-2018 Instruction Type:Patient Education Patient Instructions Indication:Non-smoker Start:23-Feb-2018 Instruction Type:Provider Instructions for Treatment [facility]; [facility] Work Phone: Instructions* Name Dates Details How to Access Health Informa tion Online using Patient Portal and [employer] Apps Indication:Non-smoker Start:04-Dec-2022 Instruction Type:Patient Education Patient Instructions Indication:Non-smoker Start:04-Dec-2022 Instruction Type:Provider Instructions for Treatment Patient Instructions Indication:Non-smoker Start:12-Aug-2022 Instruction Type:Provider Instructions for Treatment How to Access Health Informa tion Online using Patient Portal and [employer] Apps Indication:Non-smoker Start:12-Aug-2022 Instruction Type:Patient Education Patient Instructions Indication:Non-smoker Start:23-May-2022 Instruction Type:Provider Instructions for Treatment How to Access Health Informa tion Online using Patient Portal and [employer] Apps Indication:Non-smoker Start:23-May-2022 Instruction Type:Patient Education Patient Instructions Indication:Encounter for screening mammogram for malignant neoplasm of breast Start:17-May-2022 Instruction Type:Provider Instructions for Treatment How to Access Health Informa tion Online using Patient Portal and [employer] Apps Indication:Encounter for screening mammogram for malignant neoplasm of breast Start:17-May-2022 Instruction Type:Patient Education Patient Instructions Indication:BMI 33.0-33.9,adult Start:11-Feb-2022 Instruction Type:Provider Instructions for Treatment How to Access Health Informa tion Online using Patient Portal and [employer] Apps Indication:BMI 33.0-33.9,adult Start:11-Feb-2022 Instruction Type:Patient Education Patient Instructions Indication:BMI 32.0-32.9,adult Start:07-Nov-2021 Instruction Type:Provider Instructions for Treatment How to Access Health Informa tion Online using Patient Portal and [employer] Indication:BMI 32.0-32.9,adult Start:07-Nov-2021 Instruction Type:Patient Education Patient Instructions Indication:Non-smoker Start:16-Aug-2021 Instruction Type:Provider Instructions for Treatment How to Access Health Informa tion Online using Patient Portal and [employer] Apps Indication:Non-smoker Start:16-Aug-2021 Instruction Type:Patient Education Patient Instructions Indication:BMI 32.0-32.9,adult Start:11-Jun-2021 Instruction Type:Provider Instructions for Treatment How to Access Health Informa tion Online using Patient Portal and [employer] Indication:BMI 32.0-32.9,adult Start:11-Jun-2021 Instruction Type:Patient Education Patient Instructions Indication:Non-smoker Start:16-May-2021 Instruction Type:Provider Instructions for Treatment How to Access Health Informa tion Online using Patient Portal and [employer] Indication:Non-smoker Start:16-May-2021 Instruction Type:Patient Education Patient Instructions Indication:BMI 31.0-31.9,adult Start:29-Jan-2021 Instruction Type:Provider Instructions for Treatment How to Access Health Informa tion Online using Patient Portal and [employer] Indication:BMI 31.0-31.9,adult Start:29-Jan-2021 Instruction Type:Patient Education Patient Instructions Indication:Non-smoker Start:11-Dec-2020 Instruction Type:Provider Instructions for Treatment How to Access Health Informa tion Online using Patient Portal and [employer] Indication:Non-smoker Start:11-Dec-2020 Instruction Type:Patient Education How to Access Health Informa tion Online using Patient Portal and [employer] Apps Indication:Non-smoker Start:31-Aug-2020 Instruction Type:Patient Education Patient Instructions Indication:Non-smoker Start:31-Aug-2020 Instruction Type:Provider Instructions for Treatment Patient Instructions Indication:Non-smoker Start:10-Aug-2020 Instruction Type:Provider Instructions for Treatment How to Access Health Informa tion Online using Patient Portal and [employer] Apps Indication:Non-smoker Start:10-Aug-2020 Instruction Type:Patient Education How to Access Health Informa tion Online using Patient Portal and [employer] Apps Indication:Non-smoker Start:20-Jul-2020 Instruction Type:Patient Education Patient Instructions Indication:Non-smoker Start:20-Jul-2020 Instruction Type:Provider Instructions for Treatment How to Access Health Informa tion Online using Patient Portal and [employer] Apps Indication:Non-smoker Start:29-Jun-2020 Instruction Type:Patient Education Patient Instructions Indication:Non-smoker Start:29-Jun-2020 Instruction Type:Provider Instructions for Treatment How to Access Health Informa tion Online using Patient Portal and [employer] Apps Indication:Non-smoker Start:07-Jun-2020 Instruction Type:Patient Education Patient Instructions Indication:Non-smoker Start:07-Jun-2020 Instruction Type:Provider Instructions for Treatment How to Access Health Informa tion Online using Patient Portal and [employer] Indication:Non-smoker Start:24-May-2020 Instruction Type:Patient Education Patient Instructions Indication:Non-smoker Start:24-May-2020 Instruction Type:Provider Instructions for Treatment Patient Instructions Indication:Non-smoker Start:08-Mar-2020 Instruction Type:Provider Instructions for Treatment How to Access Health Informa tion Online using Patient Portal and [employer] Indication:Non-smoker Start:08-Mar-2020 Instruction Type:Patient Education obesity counseling Indication:Hypertension Start:23-Dec-2019 Instruction Type:Provider Instructions for Treatment How to access health informa tion online Indication:Non-smoker Start:23-Dec-2019 Instruction Type:Patient Education How to access health informa tion online - Detail Indication:Non-smoker Start:23-Dec-2019 Instruction Type:Patient Education Patient Instructions Indication:Non-smoker Start:23-Dec-2019 Instruction Type:Provider Instructions for Treatment How to access health informa tion online Indication:Non-smoker Start:08-Dec-2019 Instruction Type:Patient Education How to access health informa tion online - Detail Indication:Non-smoker Start:08-Dec-2019 Instruction Type:Patient Education Patient Instructions Indication:Non-smoker Start:08-Dec-2019 Instruction Type:Provider Instructions for Treatment How to access health informa tion online Indication:Non-smoker Start:11-Oct-2019 Instruction Type:Patient Education How to access health informa tion online - Detail Indication:Non-smoker Start:11-Oct-2019 Instruction Type:Patient Education Patient Instructions Indication:Non-smoker Start:11-Oct-2019 Instruction Type:Provider Instructions for Treatment How to access health informa tion online - Detail Indication:Non-smoker Start:21-Jul-2019 Instruction Type:Patient Education How to access health informa tion online Indication:Non-smoker Start:21-Jul-2019 Instruction Type:Patient Education Patient Instructions Indication:Non-smoker Start:21-Jul-2019 Instruction Type:Provider Instructions for Treatment How to access health informa tion online - Detail Indication:BMI 31.0-31.9,adult Start:09-Jun-2019 Instruction Type:Patient Education How to access health informa tion online Indication:BMI 31.0-31.9,adult Start:09-Jun-2019 Instruction Type:Patient Education Patient Instructions Indication:BMI 31.0-31.9,adult Start:09-Jun-2019 Instruction Type:Provider Instructions for Treatment How to access health informa tion online Indication:Non-smoker Start:26-Mar-2019 Instruction Type:Patient Education How to access health informa tion online - Detail Indication:Non-smoker Start:26-Mar-2019 Instruction Type:Patient Education Patient Instructions Indication:Non-smoker Start:26-Mar-2019 Instruction Type:Provider Instructions for Treatment How to access health informa tion online Indication:Non-smoker Start:22-Jan-2019 Instruction Type:Patient Education How to access health informa tion online - Detail Indication:Non-smoker Start:22-Jan-2019 Instruction Type:Patient Education Patient Instructions Indication:Non-smoker Start:22-Jan-2019 Instruction Type:Provider Instructions for Treatment How to access health informa tion online Indication:Non-smoker Start:24-Aug-2018 Instruction Type:Patient Education How to access health informa tion online - Detail Indication:Non-smoker Start:24-Aug-2018 Instruction Type:Patient Education Patient Instructions Indication:Non-smoker Start:24-Aug-2018 Instruction Type:Provider Instructions for Treatment How to access health informa tion online Indication:Non-smoker Start:13-Jul-2018 Instruction Type:Patient Education How to access health informa tion online - Detail Indication:Non-smoker Start:13-Jul-2018 Instruction Type:Patient Education Patient Instructions Indication:Flashing lights Start:13-Jul-2018 Instruction Type:Provider Instructions for Treatment How to access health informa tion online Indication:Non-smoker Start:21-May-2018 Instruction Type:Patient Education How to access health informa tion online - Detail Indication:Non-smoker Start:21-May-2018 Instruction Type:Patient Education Patient Instructions Indication:Non-smoker Start:21-May-2018 Instruction Type:Provider Instructions for Treatment How to access health informa tion online Indication:Non-smoker Start:01-May-2018 Instruction Type:Patient Education How to access health informa tion online - Detail Indication:Non-smoker Start:01-May-2018 Instruction Type:Patient Education Patient Instructions Indication:Non-smoker Start:01-May-2018 Instruction Type:Provider Instructions for Treatment How to access health informa tion online Indication:Non-smoker Start:02-Apr-2018 Instruction Type:Patient Education How to access health informa tion online - Detail Indication:Non-smoker Start:02-Apr-2018 Instruction Type:Patient Education Patient Instructions Indication:Non-smoker Start:02-Apr-2018 Instruction Type:Provider Instructions for Treatment How to access health informa tion online Indication:Hypertension Start:20-Mar-2018 Instruction Type:Patient Education How to access health informa tion online - Detail Indication:Hypertension Start:20-Mar-2018 Instruction Type:Patient Education Patient Instructions Indication:Hypertension Start:20-Mar-2018 Instruction Type:Provider Instructions for Treatment How to access health informa tion online Indication:Non-smoker Start:23-Feb-2018 Instruction Type:Patient Education How to access health informa tion online Indication:Non-smoker Start:23-Feb-2018 Instruction Type:Patient Education How to access health informa tion online - Detail Indication:Non-smoker Start:23-Feb-2018 Instruction Type:Patient Education Patient Instructions Indication:Non-smoker Start:23-Feb-2018 Instruction Type:Provider Instructions for Treatment [facility]; [facility] Work Phone: Family History Unknown Family Member Name Dates Details Alcohol Abuse Comments:Mother. Father. Status:Active Diabetes Mellitus Type II Comments:Father. Status:Active Heart Disease Comments:Maternal Grandfathe r. Status:Active Hypertension Comments:Maternal Grandmothe r. Paternal Grandmother. Status:Active Lung Cancer Comments:Mother. Status:Active Multiple Sclerosis Comments:Sister. Status:Active Pancreatitis Comments:Father. Status:Active Throat cancer Comments:Paternal Grandfathe r. Status:Active Unknown Family Member Name Dates Details Alcohol Abuse Comments:Mother. Father. Status:Active Diabetes Mellitus Type II Comments:Father. Status:Active Heart Disease Comments:Maternal Grandfathe r. Status:Active Hypertension Comments:Maternal Grandmothe r. Paternal Grandmother. Status:Active Lung Cancer Comments:Mother. Status:Active Multiple Sclerosis Comments:Sister. Status:Active Pancreatitis Comments:Father. Status:Active Throat cancer Comments:Paternal Grandfathe r. Status:Active Unknown Family Member Name Dates Details Alcohol Abuse Comments:Mother. Father. Status:Active Diabetes Mellitus Type II Comments:Father. Status:Active Heart Disease Comments:Maternal Grandfathe r. Status:Active Hypertension Comments:Maternal Grandmothe r. Paternal Grandmother. Status:Active Lung Cancer Comments:Mother. Status:Active Multiple Sclerosis Comments:Sister. Status:Active Pancreatitis Comments:Father. Status:Active Throat cancer Comments:Paternal Grandfathe r. Status:Active Unknown Family Member Name Dates Details Alcohol Abuse Comments:Mother. Father. Status:Active Diabetes Mellitus Type II Comments:Father. Status:Active Heart Disease Comments:Maternal Grandfathe r. Status:Active Hypertension Comments:Maternal Grandmothe r. Paternal Grandmother. Status:Active Lung Cancer Comments:Mother. Status:Active Multiple Sclerosis Comments:Sister. Status:Active Pancreatitis Comments:Father. Status:Active Throat cancer Comments:Paternal Grandfathe r. Status:Active Unknown Family Member Name Dates Details Alcohol Abuse Comments:Mother. Father. Status:Active Diabetes Mellitus Type II Comments:Father. Status:Active Heart Disease Comments:Maternal Grandfathe r. Status:Active Hypertension Comments:Maternal Grandmothe r. Paternal Grandmother. Status:Active Lung Cancer Comments:Mother. Status:Active Multiple Sclerosis Comments:Sister. Status:Active Pancreatitis Comments:Father. Status:Active Throat cancer Comments:Paternal Grandfathe r. Status:Active Unknown Family Member Name Dates Details Alcohol Abuse Comments:Mother. Father. Status:Active Diabetes Mellitus Type II Comments:Father. Status:Active Heart Disease Comments:Maternal Grandfathe r. Status:Active Hypertension Comments:Maternal Grandmothe r. Paternal Grandmother. Status:Active Lung Cancer Comments:Mother. Status:Active Multiple Sclerosis Comments:Sister. Status:Active Pancreatitis Comments:Father. Status:Active Throat cancer Comments:Paternal Grandfathe r. Status:Active Unknown Family Member Name Dates Details Alcohol Abuse Comments:Mother. Father. Status:Active Diabetes Mellitus Type II Comments:Father. Status:Active Heart Disease Comments:Maternal Grandfathe r. Status:Active Hypertension Comments:Maternal Grandmothe r. Paternal Grandmother. Status:Active Lung Cancer Comments:Mother. Status:Active Multiple Sclerosis Comments:Sister. Status:Active Pancreatitis Comments:Father. Status:Active Throat cancer Comments:Paternal Grandfathe r. Status:Active Unknown Family Member Name Dates Details Alcohol Abuse Comments:Mother. Father. Status:Active Diabetes Mellitus Type II Comments:Father. Status:Active Heart Disease Comments:Maternal Grandfathe r. Status:Active Hypertension Comments:Maternal Grandmothe r. Paternal Grandmother. Status:Active Lung Cancer Comments:Mother. Status:Active Multiple Sclerosis Comments:Sister. Status:Active Pancreatitis Comments:Father. Status:Active Throat cancer Comments:Paternal Grandfathe r. Status:Active Unknown Family Member Name Dates Details Alcohol Abuse Comments:Mother. Father. Status:Active Diabetes Mellitus Type II Comments:Father. Status:Active Heart Disease Comments:Maternal Grandfathe r. Status:Active Hypertension Comments:Maternal Grandmothe r. Paternal Grandmother. Status:Active Lung Cancer Comments:Mother. Status:Active Multiple Sclerosis Comments:Sister. Status:Active Pancreatitis Comments:Father. Status:Active Throat cancer Comments:Paternal Grandfathe r. Status:Active Unknown Family Member Name Dates Details Alcohol Abuse Comments:Mother. Father. Status:Active Diabetes Mellitus Type II Comments:Father. Status:Active Heart Disease Comments:Maternal Grandfathe r. Status:Active Hypertension Comments:Maternal Grandmothe r. Paternal Grandmother. Status:Active Lung Cancer Comments:Mother. Status:Active Multiple Sclerosis Comments:Sister. Status:Active Pancreatitis Comments:Father. Status:Active Throat cancer Comments:Paternal Grandfathe r. Status:Active Unknown Family Member Name Dates Details Alcohol Abuse Comments:Mother. Father. Status:Active Diabetes Mellitus Type II Comments:Father. Status:Active Heart Disease Comments:Maternal Grandfathe r. Status:Active Hypertension Comments:Maternal Grandmothe r. Paternal Grandmother. Status:Active Lung Cancer Comments:Mother. Status:Active Multiple Sclerosis Comments:Sister. Status:Active Pancreatitis Comments:Father. Status:Active Throat cancer Comments:Paternal Grandfathe r. Status:Active Unknown Family Member Name Dates Details Alcohol Abuse Comments:Mother. Father. Status:Active Diabetes Mellitus Type II Comments:Father. Status:Active Heart Disease Comments:Maternal Grandfathe r. Status:Active Hypertension Comments:Maternal Grandmothe r. Paternal Grandmother. Status:Active Lung Cancer Comments:Mother. Status:Active Multiple Sclerosis Comments:Sister. Status:Active Pancreatitis Comments:Father. Status:Active Throat cancer Comments:Paternal Grandfathe r. Status:Active Unknown Family Member Name Dates Details Alcohol Abuse Comments:Mother. Father. Status:Active Diabetes Mellitus Type II Comments:Father. Status:Active Heart Disease Comments:Maternal Grandfathe r. Status:Active Hypertension Comments:Maternal Grandmothe r. Paternal Grandmother. Status:Active Lung Cancer Comments:Mother. Status:Active Multiple Sclerosis Comments:Sister. Status:Active Pancreatitis Comments:Father. Status:Active Throat cancer Comments:Paternal Grandfathe r. Status:Active Unknown Family Member Name Dates Details Alcohol Abuse Comments:Mother. Father. Status:Active Diabetes Mellitus Type II Comments:Father. Status:Active Heart Disease Comments:Maternal Grandfathe r. Status:Active Hypertension Comments:Maternal Grandmothe r. Paternal Grandmother. Status:Active Lung Cancer Comments:Mother. Status:Active Multiple Sclerosis Comments:Sister. Status:Active Pancreatitis Comments:Father. Status:Active Throat cancer Comments:Paternal Grandfathe r. Status:Active Unknown Family Member Name Dates Details Alcohol Abuse Comments:Mother. Father. Status:Active Diabetes Mellitus Type II Comments:Father. Status:Active Heart Disease Comments:Maternal Grandfathe r. Status:Active Hypertension Comments:Maternal Grandmothe r. Paternal Grandmother. Status:Active Lung Cancer Comments:Mother. Status:Active Multiple Sclerosis Comments:Sister. Status:Active Pancreatitis Comments:Father. Status:Active Throat cancer Comments:Paternal Grandfathe r. Status:Active Unknown Family Member Name Dates Details Alcohol Abuse Comments:Mother. Father. Status:Active Diabetes Mellitus Type II Comments:Father. Status:Active Heart Disease Comments:Maternal Grandfathe r. Status:Active Hypertension Comments:Maternal Grandmothe r. Paternal Grandmother. Status:Active Lung Cancer Comments:Mother. Status:Active Multiple Sclerosis Comments:Sister. Status:Active Pancreatitis Comments:Father. Status:Active Throat cancer Comments:Paternal Grandfathe r. Status:Active Unknown Family Member Name Dates Details Alcohol Abuse Comments:Mother. Father. Status:Active Diabetes Mellitus Type II Comments:Father. Status:Active Heart Disease Comments:Maternal Grandfathe r. Status:Active Hypertension Comments:Maternal Grandmothe r. Paternal Grandmother. Status:Active Lung Cancer Comments:Mother. Status:Active Multiple Sclerosis Comments:Sister. Status:Active Pancreatitis Comments:Father. Status:Active Throat cancer Comments:Paternal Grandfathe r. Status:Active Unknown Family Member Name Dates Details Alcohol Abuse Comments:Mother. Father. Status:Active Diabetes Mellitus Type II Comments:Father. Status:Active Heart Disease Comments:Maternal Grandfathe r. Status:Active Hypertension Comments:Maternal Grandmothe r. Paternal Grandmother. Status:Active Lung Cancer Comments:Mother. Status:Active Multiple Sclerosis Comments:Sister. Status:Active Pancreatitis Comments:Father. Status:Active Throat cancer Comments:Paternal Grandfathe r. Status:Active Unknown Family Member Name Dates Details Alcohol Abuse Comments:Mother. Father. Status:Active Diabetes Mellitus Type II Comments:Father. Status:Active Heart Disease Comments:Maternal Grandfathe r. Status:Active Hypertension Comments:Maternal Grandmothe r. Paternal Grandmother. Status:Active Lung Cancer Comments:Mother. Status:Active Multiple Sclerosis Comments:Sister. Status:Active Pancreatitis Comments:Father. Status:Active Throat cancer Comments:Paternal Grandfathe r. Status:Active Unknown Family Member Name Dates Details Alcohol Abuse Comments:Mother. Father. Status:Active Diabetes Mellitus Type II Comments:Father. Status:Active Heart Disease Comments:Maternal Grandfathe r. Status:Active Hypertension Comments:Maternal Grandmothe r. Paternal Grandmother. Status:Active Lung Cancer Comments:Mother. Status:Active Multiple Sclerosis Comments:Sister. Status:Active Pancreatitis Comments:Father. Status:Active Throat cancer Comments:Paternal Grandfathe r. Status:Active Unknown Family Member Name Dates Details Alcohol Abuse Comments:Mother. Father. Status:Active Diabetes Mellitus Type II Comments:Father. Status:Active Heart Disease Comments:Maternal Grandfathe r. Status:Active Hypertension Comments:Maternal Grandmothe r. Paternal Grandmother. Status:Active Lung Cancer Comments:Mother. Status:Active Multiple Sclerosis Comments:Sister. Status:Active Pancreatitis Comments:Father. Status:Active Throat cancer Comments:Paternal Grandfathe r. Status:Active Unknown Family Member Name Dates Details Alcohol Abuse Comments:Mother. Father. Status:Active Diabetes Mellitus Type II Comments:Father. Status:Active Heart Disease Comments:Maternal Grandfathe r. Status:Active Hypertension Comments:Maternal Grandmothe r. Paternal Grandmother. Status:Active Lung Cancer Comments:Mother. Status:Active Multiple Sclerosis Comments:Sister. Status:Active Pancreatitis Comments:Father. Status:Active Throat cancer Comments:Paternal Grandfathe r. Status:Active Unknown Family Member Name Dates Details Alcohol Abuse Comments:Mother. Father. Status:Active Diabetes Mellitus Type II Comments:Father. Status:Active Heart Disease Comments:Maternal Grandfathe r. Status:Active Hypertension Comments:Maternal Grandmothe r. Paternal Grandmother. Status:Active Lung Cancer Comments:Mother. Status:Active Multiple Sclerosis Comments:Sister. Status:Active Pancreatitis Comments:Father. Status:Active Throat cancer Comments:Paternal Grandfathe r. Status:Active Unknown Family Member Name Dates Details Alcohol Abuse Comments:Mother. Father. Status:Active Diabetes Mellitus Type II Comments:Father. Status:Active Heart Disease Comments:Maternal Grandfathe r. Status:Active Hypertension Comments:Maternal Grandmothe r. Paternal Grandmother. Status:Active Lung Cancer Comments:Mother. Status:Active Multiple Sclerosis Comments:Sister. Status:Active Pancreatitis Comments:Father. Status:Active Throat cancer Comments:Paternal Grandfathe r. Status:Active Unknown Family Member Name Dates Details Alcohol Abuse Comments:Mother. Father. Status:Active Diabetes Mellitus Type II Comments:Father. Status:Active Heart Disease Comments:Maternal Grandfathe r. Status:Active Hypertension Comments:Maternal Grandmothe r. Paternal Grandmother. Status:Active Lung Cancer Comments:Mother. Status:Active Multiple Sclerosis Comments:Sister. Status:Active Pancreatitis Comments:Father. Status:Active Throat cancer Comments:Paternal Grandfathe r. Status:Active Unknown Family Member Name Dates Details Alcohol Abuse Comments:Mother. Father. Status:Active Diabetes Mellitus Type II Comments:Father. Status:Active Heart Disease Comments:Maternal Grandfathe r. Status:Active Hypertension Comments:Maternal Grandmothe r. Paternal Grandmother. Status:Active Lung Cancer Comments:Mother. Status:Active Multiple Sclerosis Comments:Sister. Status:Active Pancreatitis Comments:Father. Status:Active Throat cancer Comments:Paternal Grandfathe r. Status:Active Unknown Family Member Name Dates Details Alcohol Abuse Comments:Mother. Father. Status:Active Diabetes Mellitus Type II Comments:Father. Status:Active Heart Disease Comments:Maternal Grandfathe r. Status:Active Hypertension Comments:Maternal Grandmothe r. Paternal Grandmother. Status:Active Lung Cancer Comments:Mother. Status:Active Multiple Sclerosis Comments:Sister. Status:Active Pancreatitis Comments:Father. Status:Active Throat cancer Comments:Paternal Grandfathe r. Status:Active Unknown Family Member Name Dates Details Alcohol Abuse Comments:Mother. Father. Status:Active Diabetes Mellitus Type II Comments:Father. Status:Active Heart Disease Comments:Maternal Grandfathe r. Status:Active Hypertension Comments:Maternal Grandmothe r. Paternal Grandmother. Status:Active Lung Cancer Comments:Mother. Status:Active Multiple Sclerosis Comments:Sister. Status:Active Pancreatitis Comments:Father. Status:Active Throat cancer Comments:Paternal Grandfathe r. Status:Active Unknown Family Member Name Dates Details Alcohol Abuse Comments:Mother. Father. Status:Active Diabetes Mellitus Type II Comments:Father. Status:Active Heart Disease Comments:Maternal Grandfathe r. Status:Active Hypertension Comments:Maternal Grandmothe r. Paternal Grandmother. Status:Active Lung Cancer Comments:Mother. Status:Active Multiple Sclerosis Comments:Sister. Status:Active Pancreatitis Comments:Father. Status:Active Throat cancer Comments:Paternal Grandfathe r. Status:Active Unknown Family Member Name Dates Details Alcohol Abuse Comments:Mother. Father. Status:Active Diabetes Mellitus Type II Comments:Father. Status:Active Heart Disease Comments:Maternal Grandfathe r. Status:Active Hypertension Comments:Maternal Grandmothe r. Paternal Grandmother. Status:Active Lung Cancer Comments:Mother. Status:Active Multiple Sclerosis Comments:Sister. Status:Active Pancreatitis Comments:Father. Status:Active Throat cancer Comments:Paternal Grandfathe r. Status:Active Unknown Family Member Name Dates Details Alcohol Abuse Comments:Mother. Father. Status:Active Diabetes Mellitus Type II Comments:Father. Status:Active Heart Disease Comments:Maternal Grandfathe r. Status:Active Hypertension Comments:Maternal Grandmothe r. Paternal Grandmother. Status:Active Lung Cancer Comments:Mother. Status:Active Multiple Sclerosis Comments:Sister. Status:Active Pancreatitis Comments:Father. Status:Active Throat cancer Comments:Paternal Grandfathe r. Status:Active Unknown Family Member Name Dates Details Alcohol Abuse Comments:Mother. Father. Status:Active Diabetes Mellitus Type II Comments:Father. Status:Active Heart Disease Comments:Maternal Grandfathe r. Status:Active Hypertension Comments:Maternal Grandmothe r. Paternal Grandmother. Status:Active Lung Cancer Comments:Mother. Status:Active Multiple Sclerosis Comments:Sister. Status:Active Pancreatitis Comments:Father. Status:Active Throat cancer Comments:Paternal Grandfathe r. Status:Active Unknown Family Member Name Dates Details Alcohol Abuse Comments:Mother. Father. Status:Active Diabetes Mellitus Type II Comments:Father. Status:Active Heart Disease Comments:Maternal Grandfathe r. Status:Active Hypertension Comments:Maternal Grandmothe r. Paternal Grandmother. Status:Active Lung Cancer Comments:Mother. Status:Active Multiple Sclerosis Comments:Sister. Status:Active Pancreatitis Comments:Father. Status:Active Throat cancer Comments:Paternal Grandfathe r. Status:Active Unknown Family Member Name Dates Details Alcohol Abuse Comments:Mother. Father. Status:Active Diabetes Mellitus Type II Comments:Father. Status:Active Heart Disease Comments:Maternal Grandfathe r. Status:Active Hypertension Comments:Maternal Grandmothe r. Paternal Grandmother. Status:Active Lung Cancer Comments:Mother. Status:Active Multiple Sclerosis Comments:Sister. Status:Active Pancreatitis Comments:Father. Status:Active Throat cancer Comments:Paternal Grandfathe r. Status:Active Unknown Family Member Name Dates Details Alcohol Abuse Comments:Mother. Father. Status:Active Diabetes Mellitus Type II Comments:Father. Status:Active Heart Disease Comments:Maternal Grandfathe r. Status:Active Hypertension Comments:Maternal Grandmothe r. Paternal Grandmother. Status:Active Lung Cancer Comments:Mother. Status:Active Multiple Sclerosis Comments:Sister. Status:Active Pancreatitis Comments:Father. Status:Active Throat cancer Comments:Paternal Grandfathe r. Status:Active Unknown Family Member Name Dates Details Alcohol Abuse Comments:Mother. Father. Status:Active Diabetes Mellitus Type II Comments:Father. Status:Active Heart Disease Comments:Maternal Grandfathe r. Status:Active Hypertension Comments:Maternal Grandmothe r. Paternal Grandmother. Status:Active Lung Cancer Comments:Mother. Status:Active Multiple Sclerosis Comments:Sister. Status:Active Pancreatitis Comments:Father. Status:Active Throat cancer Comments:Paternal Grandfathe r. Status:Active Unknown Family Member Name Dates Details Alcohol Abuse Comments:Mother. Father. Status:Active Diabetes Mellitus Type II Comments:Father. Status:Active Heart Disease Comments:Maternal Grandfathe r. Status:Active Hypertension Comments:Maternal Grandmothe r. Paternal Grandmother. Status:Active Lung Cancer Comments:Mother. Status:Active Multiple Sclerosis Comments:Sister. Status:Active Pancreatitis Comments:Father. Status:Active Throat cancer Comments:Paternal Grandfathe r. Status:Active Unknown Family Member Name Dates Details Alcohol Abuse Comments:Mother. Father. Status:Active Diabetes Mellitus Type II Comments:Father. Status:Active Heart Disease Comments:Maternal Grandfathe r. Status:Active Hypertension Comments:Maternal Grandmothe r. Paternal Grandmother. Status:Active Lung Cancer Comments:Mother. Status:Active Multiple Sclerosis Comments:Sister. Status:Active Pancreatitis Comments:Father. Status:Active Throat cancer Comments:Paternal Grandfathe r. Status:Active Unknown Family Member Name Dates Details Alcohol Abuse Comments:Mother. Father. Status:Active Diabetes Mellitus Type II Comments:Father. Status:Active Heart Disease Comments:Maternal Grandfathe r. Status:Active Hypertension Comments:Maternal Grandmothe r. Paternal Grandmother. Status:Active Lung Cancer Comments:Mother. Status:Active Multiple Sclerosis Comments:Sister. Status:Active Pancreatitis Comments:Father. Status:Active Throat cancer Comments:Paternal Grandfathe r. Status:Active Unknown Family Member Name Dates Details Alcohol Abuse Comments:Mother. Father. Status:Active Diabetes Mellitus Type II Comments:Father. Status:Active Heart Disease Comments:Maternal Grandfathe r. Status:Active Hypertension Comments:Maternal Grandmothe r. Paternal Grandmother. Status:Active Lung Cancer Comments:Mother. Status:Active Multiple Sclerosis Comments:Sister. Status:Active Pancreatitis Comments:Father. Status:Active Throat cancer Comments:Paternal Grandfathe r. Status:Active Unknown Family Member Name Dates Details Alcohol Abuse Comments:Mother. Father. Status:Active Diabetes Mellitus Type II Comments:Father. Status:Active Heart Disease Comments:Maternal Grandfathe r. Status:Active Hypertension Comments:Maternal Grandmothe r. Paternal Grandmother. Status:Active Lung Cancer Comments:Mother. Status:Active Multiple Sclerosis Comments:Sister. Status:Active Pancreatitis Comments:Father. Status:Active Throat cancer Comments:Paternal Grandfathe r. Status:Active Unknown Family Member Name Dates Details Alcohol Abuse Comments:Mother. Father. Status:Active Diabetes Mellitus Type II Comments:Father. Status:Active Heart Disease Comments:Maternal Grandfathe r. Status:Active Hypertension Comments:Maternal Grandmothe r. Paternal Grandmother. Status:Active Lung Cancer Comments:Mother. Status:Active Multiple Sclerosis Comments:Sister. Status:Active Pancreatitis Comments:Father. Status:Active Throat cancer Comments:Paternal Grandfathe r. Status:Active Unknown Family Member Name Dates Details Alcohol Abuse Comments:Mother. Father. Status:Active Diabetes Mellitus Type II Comments:Father. Status:Active Heart Disease Comments:Maternal Grandfathe r. Status:Active Hypertension Comments:Maternal Grandmothe r. Paternal Grandmother. Status:Active Lung Cancer Comments:Mother. Status:Active Multiple Sclerosis Comments:Sister. Status:Active Pancreatitis Comments:Father. Status:Active Throat cancer Comments:Paternal Grandfathe r. Status:Active Unknown Family Member Name Dates Details Alcohol Abuse Comments:Mother. Father. Status:Active Diabetes Mellitus Type II Comments:Father. Status:Active Heart Disease Comments:Maternal Grandfathe r. Status:Active Hypertension Comments:Maternal Grandmothe r. Paternal Grandmother. Status:Active Lung Cancer Comments:Mother. Status:Active Multiple Sclerosis Comments:Sister. Status:Active Pancreatitis Comments:Father. Status:Active Throat cancer Comments:Paternal Grandfathe r. Status:Active Unknown Family Member Name Dates Details Alcohol Abuse Comments:Mother. Father. Status:Active Diabetes Mellitus Type II Comments:Father. Status:Active Heart Disease Comments:Maternal Grandfathe r. Status:Active Hypertension Comments:Maternal Grandmothe r. Paternal Grandmother. Status:Active Lung Cancer Comments:Mother. Status:Active Multiple Sclerosis Comments:Sister. Status:Active Pancreatitis Comments:Father. Status:Active Throat cancer Comments:Paternal Grandfathe r. Status:Active Unknown Family Member Name Dates Details Alcohol Abuse Comments:Mother. Father. Status:Active Diabetes Mellitus Type II Comments:Father. Status:Active Heart Disease Comments:Maternal Grandfathe r. Status:Active Hypertension Comments:Maternal Grandmothe r. Paternal Grandmother. Status:Active Lung Cancer Comments:Mother. Status:Active Multiple Sclerosis Comments:Sister. Status:Active Pancreatitis Comments:Father. Status:Active Throat cancer Comments:Paternal Grandfathe r. Status:Active Unknown Family Member Name Dates Details Alcohol Abuse Comments:Mother. Father. Status:Active Diabetes Mellitus Type II Comments:Father. Status:Active Heart Disease Comments:Maternal Grandfathe r. Status:Active Hypertension Comments:Maternal Grandmothe r. Paternal Grandmother. Status:Active Lung Cancer Comments:Mother. Status:Active Multiple Sclerosis Comments:Sister. Status:Active Pancreatitis Comments:Father. Status:Active Throat cancer Comments:Paternal Grandfathe r. Status:Active Unknown Family Member Name Dates Details Alcohol Abuse Comments:Mother. Father. Status:Active Diabetes Mellitus Type II Comments:Father. Status:Active Heart Disease Comments:Maternal Grandfathe r. Status:Active Hypertension Comments:Maternal Grandmothe r. Paternal Grandmother. Status:Active Lung Cancer Comments:Mother. Status:Active Multiple Sclerosis Comments:Sister. Status:Active Pancreatitis Comments:Father. Status:Active Throat cancer Comments:Paternal Grandfathe r. Status:Active Unknown Family Member Name Dates Details Alcohol Abuse Comments:Mother. Father. Status:Active Diabetes Mellitus Type II Comments:Father. Status:Active Heart Disease Comments:Maternal Grandfathe r. Status:Active Hypertension Comments:Maternal Grandmothe r. Paternal Grandmother. Status:Active Lung Cancer Comments:Mother. Status:Active Multiple Sclerosis Comments:Sister. Status:Active Pancreatitis Comments:Father. Status:Active Throat cancer Comments:Paternal Grandfathe r. Status:Active Unknown Family Member Name Dates Details Alcohol Abuse Comments:Mother. Father. Status:Active Diabetes Mellitus Type II Comments:Father. Status:Active Heart Disease Comments:Maternal Grandfathe r. Status:Active Hypertension Comments:Maternal Grandmothe r. Paternal Grandmother. Status:Active Lung Cancer Comments:Mother. Status:Active Multiple Sclerosis Comments:Sister. Status:Active Pancreatitis Comments:Father. Status:Active Throat cancer Comments:Paternal Grandfathe r. Status:Active Unknown Family Member Name Dates Details Alcohol Abuse Comments:Mother. Father. Status:Active Diabetes Mellitus Type II Comments:Father. Status:Active Heart Disease Comments:Maternal Grandfathe r. Status:Active Hypertension Comments:Maternal Grandmothe r. Paternal Grandmother. Status:Active Lung Cancer Comments:Mother. Status:Active Multiple Sclerosis Comments:Sister. Status:Active Pancreatitis Comments:Father. Status:Active Throat cancer Comments:Paternal Grandfathe r. Status:Active Unknown Family Member Name Dates Details Alcohol Abuse Comments:Mother. Father. Status:Active Diabetes Mellitus Type II Comments:Father. Status:Active Heart Disease Comments:Maternal Grandfathe r. Status:Active Hypertension Comments:Maternal Grandmothe r. Paternal Grandmother. Status:Active Lung Cancer Comments:Mother. Status:Active Multiple Sclerosis Comments:Sister. Status:Active Pancreatitis Comments:Father. Status:Active Throat cancer Comments:Paternal Grandfathe r. Status:Active Instructions Name Dates Details Hypertension : How to access health information online Indication:Hypertension Hypertension : How to access health information online - Detail Indication:Hypertension Hypertension : Patient Instr uctions Indication:Hypertension Non-smoker : How to access h ealth information online Indication:Non-smoker Non-smoker : How to access h ealth information online - Detail Indication:Non-smoker Non-smoker : Patient Instruc tions Indication:Non-smoker Name Dates Details Non-smoker : How to access h ealth information online Indication:Non-smoker Non-smoker : How to access h ealth information online - Detail Indication:Non-smoker Non-smoker : Patient Instruc tions Indication:Non-smoker Hypertension : How to access health information online Indication:Hypertension Hypertension : How to access health information online - Detail Indication:Hypertension Hypertension : Patient Instr uctions Indication:Hypertension Name Dates Details Non-smoker : How to access h ealth information online Indication:Non-smoker Non-smoker : How to access h ealth information online - Detail Indication:Non-smoker Non-smoker : Patient Instruc tions Indication:Non-smoker Hypertension : How to access health information online Indication:Hypertension Hypertension : How to access health information online - Detail Indication:Hypertension Hypertension : Patient Instr uctions Indication:Hypertension Name Dates Details Non-smoker : How to access h ealth information online Indication:Non-smoker Non-smoker : How to access h ealth information online - Detail Indication:Non-smoker Non-smoker : Patient Instruc tions Indication:Non-smoker Hypertension : How to access health information online Indication:Hypertension Hypertension : How to access health information online - Detail Indication:Hypertension Hypertension : Patient Instr uctions Indication:Hypertension Name Dates Details Non-smoker : How to access h ealth information online Indication:Non-smoker Non-smoker : How to access h ealth information online - Detail Indication:Non-smoker Non-smoker : Patient Instruc tions Indication:Non-smoker Hypertension : How to access health information online Indication:Hypertension Hypertension : How to access health information online - Detail Indication:Hypertension Hypertension : Patient Instr uctions Indication:Hypertension Name Dates Details Non-smoker : How to access h ealth information online Indication:Non-smoker Non-smoker : How to access h ealth information online - Detail Indication:Non-smoker Non-smoker : Patient Instruc tions Indication:Non-smoker Hypertension : How to access health information online Indication:Hypertension Hypertension : How to access health information online - Detail Indication:Hypertension Hypertension : Patient Instr uctions Indication:Hypertension Name Dates Details How to access health informa tion online Indication:Non-smoker Start:24-Aug-2018 Instruction Type:Patient Education How to access health informa tion online - Detail Indication:Non-smoker Start:24-Aug-2018 Instruction Type:Patient Education Patient Instructions Indication:Non-smoker Start:24-Aug-2018 Instruction Type:Provider Instructions for Treatment How to access health informa tion online Indication:Non-smoker Start:13-Jul-2018 Instruction Type:Patient Education How to access health informa tion online - Detail Indication:Non-smoker Start:13-Jul-2018 Instruction Type:Patient Education Patient Instructions Indication:Flashing lights Start:13-Jul-2018 Instruction Type:Provider Instructions for Treatment How to access health informa tion online Indication:Non-smoker Start:21-May-2018 Instruction Type:Patient Education How to access health informa tion online - Detail Indication:Non-smoker Start:21-May-2018 Instruction Type:Patient Education Patient Instructions Indication:Non-smoker Start:21-May-2018 Instruction Type:Provider Instructions for Treatment How to access health informa tion online Indication:Non-smoker Start:01-May-2018 Instruction Type:Patient Education How to access health informa tion online - Detail Indication:Non-smoker Start:01-May-2018 Instruction Type:Patient Education Patient Instructions Indication:Non-smoker Start:01-May-2018 Instruction Type:Provider Instructions for Treatment How to access health informa tion online Indication:Non-smoker Start:02-Apr-2018 Instruction Type:Patient Education How to access health informa tion online - Detail Indication:Non-smoker Start:02-Apr-2018 Instruction Type:Patient Education Patient Instructions Indication:Non-smoker Start:02-Apr-2018 Instruction Type:Provider Instructions for Treatment How to access health informa tion online Indication:Hypertension Start:20-Mar-2018 Instruction Type:Patient Education How to access health informa tion online - Detail Indication:Hypertension Start:20-Mar-2018 Instruction Type:Patient Education Patient Instructions Indication:Hypertension Start:20-Mar-2018 Instruction Type:Provider Instructions for Treatment How to access health informa tion online Indication:Non-smoker Start:23-Feb-2018 Instruction Type:Patient Education How to access health informa tion online - Detail Indication:Non-smoker Start:23-Feb-2018 Instruction Type:Patient Education Patient Instructions Indication:Non-smoker Start:23-Feb-2018 Instruction Type:Provider Instructions for Treatment Name Dates Details How to access health informa tion online Indication:Non-smoker Start:24-Aug-2018 Instruction Type:Patient Education How to access health informa tion online - Detail Indication:Non-smoker Start:24-Aug-2018 Instruction Type:Patient Education Patient Instructions Indication:Non-smoker Start:24-Aug-2018 Instruction Type:Provider Instructions for Treatment How to access health informa tion online Indication:Non-smoker Start:13-Jul-2018 Instruction Type:Patient Education How to access health informa tion online - Detail Indication:Non-smoker Start:13-Jul-2018 Instruction Type:Patient Education Patient Instructions Indication:Flashing lights Start:13-Jul-2018 Instruction Type:Provider Instructions for Treatment How to access health informa tion online Indication:Non-smoker Start:21-May-2018 Instruction Type:Patient Education How to access health informa tion online - Detail Indication:Non-smoker Start:21-May-2018 Instruction Type:Patient Education Patient Instructions Indication:Non-smoker Start:21-May-2018 Instruction Type:Provider Instructions for Treatment How to access health informa tion online Indication:Non-smoker Start:01-May-2018 Instruction Type:Patient Education How to access health informa tion online - Detail Indication:Non-smoker Start:01-May-2018 Instruction Type:Patient Education Patient Instructions Indication:Non-smoker Start:01-May-2018 Instruction Type:Provider Instructions for Treatment How to access health informa tion online Indication:Non-smoker Start:02-Apr-2018 Instruction Type:Patient Education How to access health informa tion online - Detail Indication:Non-smoker Start:02-Apr-2018 Instruction Type:Patient Education Patient Instructions Indication:Non-smoker Start:02-Apr-2018 Instruction Type:Provider Instructions for Treatment How to access health informa tion online Indication:Hypertension Start:20-Mar-2018 Instruction Type:Patient Education How to access health informa tion online - Detail Indication:Hypertension Start:20-Mar-2018 Instruction Type:Patient Education Patient Instructions Indication:Hypertension Start:20-Mar-2018 Instruction Type:Provider Instructions for Treatment How to access health informa tion online Indication:Non-smoker Start:23-Feb-2018 Instruction Type:Patient Education How to access health informa tion online - Detail Indication:Non-smoker Start:23-Feb-2018 Instruction Type:Patient Education Patient Instructions Indication:Non-smoker Start:23-Feb-2018 Instruction Type:Provider Instructions for Treatment Name Dates Details How to access health informa tion online Indication:Non-smoker Start:22-Jan-2019 Instruction Type:Patient Education How to access health informa tion online - Detail Indication:Non-smoker Start:22-Jan-2019 Instruction Type:Patient Education Patient Instructions Indication:Non-smoker Start:22-Jan-2019 Instruction Type:Provider Instructions for Treatment How to access health informa tion online Indication:Non-smoker Start:24-Aug-2018 Instruction Type:Patient Education How to access health informa tion online - Detail Indication:Non-smoker Start:24-Aug-2018 Instruction Type:Patient Education Patient Instructions Indication:Non-smoker Start:24-Aug-2018 Instruction Type:Provider Instructions for Treatment How to access health informa tion online Indication:Non-smoker Start:13-Jul-2018 Instruction Type:Patient Education How to access health informa tion online - Detail Indication:Non-smoker Start:13-Jul-2018 Instruction Type:Patient Education Patient Instructions Indication:Flashing lights Start:13-Jul-2018 Instruction Type:Provider Instructions for Treatment How to access health informa tion online Indication:Non-smoker Start:21-May-2018 Instruction Type:Patient Education How to access health informa tion online - Detail Indication:Non-smoker Start:21-May-2018 Instruction Type:Patient Education Patient Instructions Indication:Non-smoker Start:21-May-2018 Instruction Type:Provider Instructions for Treatment How to access health informa tion online Indication:Non-smoker Start:01-May-2018 Instruction Type:Patient Education How to access health informa tion online - Detail Indication:Non-smoker Start:01-May-2018 Instruction Type:Patient Education Patient Instructions Indication:Non-smoker Start:01-May-2018 Instruction Type:Provider Instructions for Treatment How to access health informa tion online Indication:Non-smoker Start:02-Apr-2018 Instruction Type:Patient Education How to access health informa tion online - Detail Indication:Non-smoker Start:02-Apr-2018 Instruction Type:Patient Education Patient Instructions Indication:Non-smoker Start:02-Apr-2018 Instruction Type:Provider Instructions for Treatment How to access health informa tion online Indication:Hypertension Start:20-Mar-2018 Instruction Type:Patient Education How to access health informa tion online - Detail Indication:Hypertension Start:20-Mar-2018 Instruction Type:Patient Education Patient Instructions Indication:Hypertension Start:20-Mar-2018 Instruction Type:Provider Instructions for Treatment How to access health informa tion online Indication:Non-smoker Start:23-Feb-2018 Instruction Type:Patient Education How to access health informa tion online - Detail Indication:Non-smoker Start:23-Feb-2018 Instruction Type:Patient Education Patient Instructions Indication:Non-smoker Start:23-Feb-2018 Instruction Type:Provider Instructions for Treatment Name Dates Details How to access health informa tion online Indication:Non-smoker Start:11-Oct-2019 Instruction Type:Patient Education How to access health informa tion online - Detail Indication:Non-smoker Start:11-Oct-2019 Instruction Type:Patient Education Patient Instructions Indication:Non-smoker Start:11-Oct-2019 Instruction Type:Provider Instructions for Treatment How to access health informa tion online - Detail Indication:Non-smoker Start:21-Jul-2019 Instruction Type:Patient Education How to access health informa tion online Indication:Non-smoker Start:21-Jul-2019 Instruction Type:Patient Education Patient Instructions Indication:Non-smoker Start:21-Jul-2019 Instruction Type:Provider Instructions for Treatment How to access health informa tion online - Detail Indication:BMI 31.0-31.9,adult Start:09-Jun-2019 Instruction Type:Patient Education How to access health informa tion online Indication:BMI 31.0-31.9,adult Start:09-Jun-2019 Instruction Type:Patient Education Patient Instructions Indication:BMI 31.0-31.9,adult Start:09-Jun-2019 Instruction Type:Provider Instructions for Treatment How to access health informa tion online Indication:Non-smoker Start:26-Mar-2019 Instruction Type:Patient Education How to access health informa tion online - Detail Indication:Non-smoker Start:26-Mar-2019 Instruction Type:Patient Education Patient Instructions Indication:Non-smoker Start:26-Mar-2019 Instruction Type:Provider Instructions for Treatment How to access health informa tion online Indication:Non-smoker Start:22-Jan-2019 Instruction Type:Patient Education How to access health informa tion online - Detail Indication:Non-smoker Start:22-Jan-2019 Instruction Type:Patient Education Patient Instructions Indication:Non-smoker Start:22-Jan-2019 Instruction Type:Provider Instructions for Treatment How to access health informa tion online Indication:Non-smoker Start:24-Aug-2018 Instruction Type:Patient Education How to access health informa tion online - Detail Indication:Non-smoker Start:24-Aug-2018 Instruction Type:Patient Education Patient Instructions Indication:Non-smoker Start:24-Aug-2018 Instruction Type:Provider Instructions for Treatment How to access health informa tion online Indication:Non-smoker Start:13-Jul-2018 Instruction Type:Patient Education How to access health informa tion online - Detail Indication:Non-smoker Start:13-Jul-2018 Instruction Type:Patient Education Patient Instructions Indication:Flashing lights Start:13-Jul-2018 Instruction Type:Provider Instructions for Treatment How to access health informa tion online Indication:Non-smoker Start:21-May-2018 Instruction Type:Patient Education How to access health informa tion online - Detail Indication:Non-smoker Start:21-May-2018 Instruction Type:Patient Education Patient Instructions Indication:Non-smoker Start:21-May-2018 Instruction Type:Provider Instructions for Treatment How to access health informa tion online Indication:Non-smoker Start:01-May-2018 Instruction Type:Patient Education How to access health informa tion online - Detail Indication:Non-smoker Start:01-May-2018 Instruction Type:Patient Education Patient Instructions Indication:Non-smoker Start:01-May-2018 Instruction Type:Provider Instructions for Treatment How to access health informa tion online Indication:Non-smoker Start:02-Apr-2018 Instruction Type:Patient Education How to access health informa tion online - Detail Indication:Non-smoker Start:02-Apr-2018 Instruction Type:Patient Education Patient Instructions Indication:Non-smoker Start:02-Apr-2018 Instruction Type:Provider Instructions for Treatment How to access health informa tion online Indication:Hypertension Start:20-Mar-2018 Instruction Type:Patient Education How to access health informa tion online - Detail Indication:Hypertension Start:20-Mar-2018 Instruction Type:Patient Education Patient Instructions Indication:Hypertension Start:20-Mar-2018 Instruction Type:Provider Instructions for Treatment How to access health informa tion online Indication:Non-smoker Start:23-Feb-2018 Instruction Type:Patient Education How to access health informa tion online - Detail Indication:Non-smoker Start:23-Feb-2018 Instruction Type:Patient Education Patient Instructions Indication:Non-smoker Start:23-Feb-2018 Instruction Type:Provider Instructions for Treatment Name Dates Details How to access health informa tion online Indication:Non-smoker Start:11-Oct-2019 Instruction Type:Patient Education How to access health informa tion online - Detail Indication:Non-smoker Start:11-Oct-2019 Instruction Type:Patient Education Patient Instructions Indication:Non-smoker Start:11-Oct-2019 Instruction Type:Provider Instructions for Treatment How to access health informa tion online - Detail Indication:Non-smoker Start:21-Jul-2019 Instruction Type:Patient Education How to access health informa tion online Indication:Non-smoker Start:21-Jul-2019 Instruction Type:Patient Education Patient Instructions Indication:Non-smoker Start:21-Jul-2019 Instruction Type:Provider Instructions for Treatment How to access health informa tion online - Detail Indication:BMI 31.0-31.9,adult Start:09-Jun-2019 Instruction Type:Patient Education How to access health informa tion online Indication:BMI 31.0-31.9,adult Start:09-Jun-2019 Instruction Type:Patient Education Patient Instructions Indication:BMI 31.0-31.9,adult Start:09-Jun-2019 Instruction Type:Provider Instructions for Treatment How to access health informa tion online Indication:Non-smoker Start:26-Mar-2019 Instruction Type:Patient Education How to access health informa tion online - Detail Indication:Non-smoker Start:26-Mar-2019 Instruction Type:Patient Education Patient Instructions Indication:Non-smoker Start:26-Mar-2019 Instruction Type:Provider Instructions for Treatment How to access health informa tion online Indication:Non-smoker Start:22-Jan-2019 Instruction Type:Patient Education How to access health informa tion online - Detail Indication:Non-smoker Start:22-Jan-2019 Instruction Type:Patient Education Patient Instructions Indication:Non-smoker Start:22-Jan-2019 Instruction Type:Provider Instructions for Treatment How to access health informa tion online Indication:Non-smoker Start:24-Aug-2018 Instruction Type:Patient Education How to access health informa tion online - Detail Indication:Non-smoker Start:24-Aug-2018 Instruction Type:Patient Education Patient Instructions Indication:Non-smoker Start:24-Aug-2018 Instruction Type:Provider Instructions for Treatment How to access health informa tion online Indication:Non-smoker Start:13-Jul-2018 Instruction Type:Patient Education How to access health informa tion online - Detail Indication:Non-smoker Start:13-Jul-2018 Instruction Type:Patient Education Patient Instructions Indication:Flashing lights Start:13-Jul-2018 Instruction Type:Provider Instructions for Treatment How to access health informa tion online Indication:Non-smoker Start:21-May-2018 Instruction Type:Patient Education How to access health informa tion online - Detail Indication:Non-smoker Start:21-May-2018 Instruction Type:Patient Education Patient Instructions Indication:Non-smoker Start:21-May-2018 Instruction Type:Provider Instructions for Treatment How to access health informa tion online Indication:Non-smoker Start:01-May-2018 Instruction Type:Patient Education How to access health informa tion online - Detail Indication:Non-smoker Start:01-May-2018 Instruction Type:Patient Education Patient Instructions Indication:Non-smoker Start:01-May-2018 Instruction Type:Provider Instructions for Treatment How to access health informa tion online Indication:Non-smoker Start:02-Apr-2018 Instruction Type:Patient Education How to access health informa tion online - Detail Indication:Non-smoker Start:02-Apr-2018 Instruction Type:Patient Education Patient Instructions Indication:Non-smoker Start:02-Apr-2018 Instruction Type:Provider Instructions for Treatment How to access health informa tion online Indication:Hypertension Start:20-Mar-2018 Instruction Type:Patient Education How to access health informa tion online - Detail Indication:Hypertension Start:20-Mar-2018 Instruction Type:Patient Education Patient Instructions Indication:Hypertension Start:20-Mar-2018 Instruction Type:Provider Instructions for Treatment How to access health informa tion online Indication:Non-smoker Start:23-Feb-2018 Instruction Type:Patient Education How to access health informa tion online - Detail Indication:Non-smoker Start:23-Feb-2018 Instruction Type:Patient Education Patient Instructions Indication:Non-smoker Start:23-Feb-2018 Instruction Type:Provider Instructions for Treatment Name Dates Details How to access health informa tion online Indication:Non-smoker Start:23-Dec-2019 Instruction Type:Patient Education How to access health informa tion online - Detail Indication:Non-smoker Start:23-Dec-2019 Instruction Type:Patient Education Patient Instructions Indication:Non-smoker Start:23-Dec-2019 Instruction Type:Provider Instructions for Treatment How to access health informa tion online Indication:Non-smoker Start:08-Dec-2019 Instruction Type:Patient Education How to access health informa tion online - Detail Indication:Non-smoker Start:08-Dec-2019 Instruction Type:Patient Education Patient Instructions Indication:Non-smoker Start:08-Dec-2019 Instruction Type:Provider Instructions for Treatment How to access health informa tion online Indication:Non-smoker Start:11-Oct-2019 Instruction Type:Patient Education How to access health informa tion online - Detail Indication:Non-smoker Start:11-Oct-2019 Instruction Type:Patient Education Patient Instructions Indication:Non-smoker Start:11-Oct-2019 Instruction Type:Provider Instructions for Treatment How to access health informa tion online - Detail Indication:Non-smoker Start:21-Jul-2019 Instruction Type:Patient Education How to access health informa tion online Indication:Non-smoker Start:21-Jul-2019 Instruction Type:Patient Education Patient Instructions Indication:Non-smoker Start:21-Jul-2019 Instruction Type:Provider Instructions for Treatment How to access health informa tion online - Detail Indication:BMI 31.0-31.9,adult Start:09-Jun-2019 Instruction Type:Patient Education How to access health informa tion online Indication:BMI 31.0-31.9,adult Start:09-Jun-2019 Instruction Type:Patient Education Patient Instructions Indication:BMI 31.0-31.9,adult Start:09-Jun-2019 Instruction Type:Provider Instructions for Treatment How to access health informa tion online Indication:Non-smoker Start:26-Mar-2019 Instruction Type:Patient Education How to access health informa tion online - Detail Indication:Non-smoker Start:26-Mar-2019 Instruction Type:Patient Education Patient Instructions Indication:Non-smoker Start:26-Mar-2019 Instruction Type:Provider Instructions for Treatment How to access health informa tion online Indication:Non-smoker Start:22-Jan-2019 Instruction Type:Patient Education How to access health informa tion online - Detail Indication:Non-smoker Start:22-Jan-2019 Instruction Type:Patient Education Patient Instructions Indication:Non-smoker Start:22-Jan-2019 Instruction Type:Provider Instructions for Treatment How to access health informa tion online Indication:Non-smoker Start:24-Aug-2018 Instruction Type:Patient Education How to access health informa tion online - Detail Indication:Non-smoker Start:24-Aug-2018 Instruction Type:Patient Education Patient Instructions Indication:Non-smoker Start:24-Aug-2018 Instruction Type:Provider Instructions for Treatment How to access health informa tion online Indication:Non-smoker Start:13-Jul-2018 Instruction Type:Patient Education How to access health informa tion online - Detail Indication:Non-smoker Start:13-Jul-2018 Instruction Type:Patient Education Patient Instructions Indication:Flashing lights Start:13-Jul-2018 Instruction Type:Provider Instructions for Treatment How to access health informa tion online Indication:Non-smoker Start:21-May-2018 Instruction Type:Patient Education How to access health informa tion online - Detail Indication:Non-smoker Start:21-May-2018 Instruction Type:Patient Education Patient Instructions Indication:Non-smoker Start:21-May-2018 Instruction Type:Provider Instructions for Treatment How to access health informa tion online Indication:Non-smoker Start:01-May-2018 Instruction Type:Patient Education How to access health informa tion online - Detail Indication:Non-smoker Start:01-May-2018 Instruction Type:Patient Education Patient Instructions Indication:Non-smoker Start:01-May-2018 Instruction Type:Provider Instructions for Treatment How to access health informa tion online Indication:Non-smoker Start:02-Apr-2018 Instruction Type:Patient Education How to access health informa tion online - Detail Indication:Non-smoker Start:02-Apr-2018 Instruction Type:Patient Education Patient Instructions Indication:Non-smoker Start:02-Apr-2018 Instruction Type:Provider Instructions for Treatment How to access health informa tion online Indication:Hypertension Start:20-Mar-2018 Instruction Type:Patient Education How to access health informa tion online - Detail Indication:Hypertension Start:20-Mar-2018 Instruction Type:Patient Education Patient Instructions Indication:Hypertension Start:20-Mar-2018 Instruction Type:Provider Instructions for Treatment How to access health informa tion online Indication:Non-smoker Start:23-Feb-2018 Instruction Type:Patient Education How to access health informa tion online - Detail Indication:Non-smoker Start:23-Feb-2018 Instruction Type:Patient Education Patient Instructions Indication:Non-smoker Start:23-Feb-2018 Instruction Type:Provider Instructions for Treatment Name Dates Details obesity counseling Indication:Hypertension Start:23-Dec-2019 Instruction Type:Provider Instructions for Treatment How to access health informa tion online Indication:Non-smoker Start:23-Dec-2019 Instruction Type:Patient Education How to access health informa tion online - Detail Indication:Non-smoker Start:23-Dec-2019 Instruction Type:Patient Education Patient Instructions Indication:Non-smoker Start:23-Dec-2019 Instruction Type:Provider Instructions for Treatment How to access health informa tion online Indication:Non-smoker Start:08-Dec-2019 Instruction Type:Patient Education How to access health informa tion online - Detail Indication:Non-smoker Start:08-Dec-2019 Instruction Type:Patient Education Patient Instructions Indication:Non-smoker Start:08-Dec-2019 Instruction Type:Provider Instructions for Treatment How to access health informa tion online Indication:Non-smoker Start:11-Oct-2019 Instruction Type:Patient Education How to access health informa tion online - Detail Indication:Non-smoker Start:11-Oct-2019 Instruction Type:Patient Education Patient Instructions Indication:Non-smoker Start:11-Oct-2019 Instruction Type:Provider Instructions for Treatment How to access health informa tion online - Detail Indication:Non-smoker Start:21-Jul-2019 Instruction Type:Patient Education How to access health informa tion online Indication:Non-smoker Start:21-Jul-2019 Instruction Type:Patient Education Patient Instructions Indication:Non-smoker Start:21-Jul-2019 Instruction Type:Provider Instructions for Treatment How to access health informa tion online - Detail Indication:BMI 31.0-31.9,adult Start:09-Jun-2019 Instruction Type:Patient Education How to access health informa tion online Indication:BMI 31.0-31.9,adult Start:09-Jun-2019 Instruction Type:Patient Education Patient Instructions Indication:BMI 31.0-31.9,adult Start:09-Jun-2019 Instruction Type:Provider Instructions for Treatment How to access health informa tion online Indication:Non-smoker Start:26-Mar-2019 Instruction Type:Patient Education How to access health informa tion online - Detail Indication:Non-smoker Start:26-Mar-2019 Instruction Type:Patient Education Patient Instructions Indication:Non-smoker Start:26-Mar-2019 Instruction Type:Provider Instructions for Treatment How to access health informa tion online Indication:Non-smoker Start:22-Jan-2019 Instruction Type:Patient Education How to access health informa tion online - Detail Indication:Non-smoker Start:22-Jan-2019 Instruction Type:Patient Education Patient Instructions Indication:Non-smoker Start:22-Jan-2019 Instruction Type:Provider Instructions for Treatment How to access health informa tion online Indication:Non-smoker Start:24-Aug-2018 Instruction Type:Patient Education How to access health informa tion online - Detail Indication:Non-smoker Start:24-Aug-2018 Instruction Type:Patient Education Patient Instructions Indication:Non-smoker Start:24-Aug-2018 Instruction Type:Provider Instructions for Treatment How to access health informa tion online Indication:Non-smoker Start:13-Jul-2018 Instruction Type:Patient Education How to access health informa tion online - Detail Indication:Non-smoker Start:13-Jul-2018 Instruction Type:Patient Education Patient Instructions Indication:Flashing lights Start:13-Jul-2018 Instruction Type:Provider Instructions for Treatment How to access health informa tion online Indication:Non-smoker Start:21-May-2018 Instruction Type:Patient Education How to access health informa tion online - Detail Indication:Non-smoker Start:21-May-2018 Instruction Type:Patient Education Patient Instructions Indication:Non-smoker Start:21-May-2018 Instruction Type:Provider Instructions for Treatment How to access health informa tion online Indication:Non-smoker Start:01-May-2018 Instruction Type:Patient Education How to access health informa tion online - Detail Indication:Non-smoker Start:01-May-2018 Instruction Type:Patient Education Patient Instructions Indication:Non-smoker Start:01-May-2018 Instruction Type:Provider Instructions for Treatment How to access health informa tion online Indication:Non-smoker Start:02-Apr-2018 Instruction Type:Patient Education How to access health informa tion online - Detail Indication:Non-smoker Start:02-Apr-2018 Instruction Type:Patient Education Patient Instructions Indication:Non-smoker Start:02-Apr-2018 Instruction Type:Provider Instructions for Treatment How to access health informa tion online Indication:Hypertension Start:20-Mar-2018 Instruction Type:Patient Education How to access health informa tion online - Detail Indication:Hypertension Start:20-Mar-2018 Instruction Type:Patient Education Patient Instructions Indication:Hypertension Start:20-Mar-2018 Instruction Type:Provider Instructions for Treatment How to access health informa tion online Indication:Non-smoker Start:23-Feb-2018 Instruction Type:Patient Education How to access health informa tion online - Detail Indication:Non-smoker Start:23-Feb-2018 Instruction Type:Patient Education Patient Instructions Indication:Non-smoker Start:23-Feb-2018 Instruction Type:Provider Instructions for Treatment Name Dates Details Patient Instructions Indication:Non-smoker Start:08-Mar-2020 Instruction Type:Provider Instructions for Treatment How to Access Health Informa tion Online using Patient Portal and [employer] Apps Indication:Non-smoker Start:08-Mar-2020 Instruction Type:Patient Education obesity counseling Indication:Hypertension Start:23-Dec-2019 Instruction Type:Provider Instructions for Treatment How to access health informa tion online Indication:Non-smoker Start:23-Dec-2019 Instruction Type:Patient Education How to access health informa tion online - Detail Indication:Non-smoker Start:23-Dec-2019 Instruction Type:Patient Education Patient Instructions Indication:Non-smoker Start:23-Dec-2019 Instruction Type:Provider Instructions for Treatment How to access health informa tion online Indication:Non-smoker Start:08-Dec-2019 Instruction Type:Patient Education How to access health informa tion online - Detail Indication:Non-smoker Start:08-Dec-2019 Instruction Type:Patient Education Patient Instructions Indication:Non-smoker Start:08-Dec-2019 Instruction Type:Provider Instructions for Treatment How to access health informa tion online Indication:Non-smoker Start:11-Oct-2019 Instruction Type:Patient Education How to access health informa tion online - Detail Indication:Non-smoker Start:11-Oct-2019 Instruction Type:Patient Education Patient Instructions Indication:Non-smoker Start:11-Oct-2019 Instruction Type:Provider Instructions for Treatment How to access health informa tion online - Detail Indication:Non-smoker Start:21-Jul-2019 Instruction Type:Patient Education How to access health informa tion online Indication:Non-smoker Start:21-Jul-2019 Instruction Type:Patient Education Patient Instructions Indication:Non-smoker Start:21-Jul-2019 Instruction Type:Provider Instructions for Treatment How to access health informa tion online - Detail Indication:BMI 31.0-31.9,adult Start:09-Jun-2019 Instruction Type:Patient Education How to access health informa tion online Indication:BMI 31.0-31.9,adult Start:09-Jun-2019 Instruction Type:Patient Education Patient Instructions Indication:BMI 31.0-31.9,adult Start:09-Jun-2019 Instruction Type:Provider Instructions for Treatment How to access health informa tion online Indication:Non-smoker Start:26-Mar-2019 Instruction Type:Patient Education How to access health informa tion online - Detail Indication:Non-smoker Start:26-Mar-2019 Instruction Type:Patient Education Patient Instructions Indication:Non-smoker Start:26-Mar-2019 Instruction Type:Provider Instructions for Treatment How to access health informa tion online Indication:Non-smoker Start:22-Jan-2019 Instruction Type:Patient Education How to access health informa tion online - Detail Indication:Non-smoker Start:22-Jan-2019 Instruction Type:Patient Education Patient Instructions Indication:Non-smoker Start:22-Jan-2019 Instruction Type:Provider Instructions for Treatment How to access health informa tion online Indication:Non-smoker Start:24-Aug-2018 Instruction Type:Patient Education How to access health informa tion online - Detail Indication:Non-smoker Start:24-Aug-2018 Instruction Type:Patient Education Patient Instructions Indication:Non-smoker Start:24-Aug-2018 Instruction Type:Provider Instructions for Treatment How to access health informa tion online Indication:Non-smoker Start:13-Jul-2018 Instruction Type:Patient Education How to access health informa tion online - Detail Indication:Non-smoker Start:13-Jul-2018 Instruction Type:Patient Education Patient Instructions Indication:Flashing lights Start:13-Jul-2018 Instruction Type:Provider Instructions for Treatment How to access health informa tion online Indication:Non-smoker Start:21-May-2018 Instruction Type:Patient Education How to access health informa tion online - Detail Indication:Non-smoker Start:21-May-2018 Instruction Type:Patient Education Patient Instructions Indication:Non-smoker Start:21-May-2018 Instruction Type:Provider Instructions for Treatment How to access health informa tion online Indication:Non-smoker Start:01-May-2018 Instruction Type:Patient Education How to access health informa tion online - Detail Indication:Non-smoker Start:01-May-2018 Instruction Type:Patient Education Patient Instructions Indication:Non-smoker Start:01-May-2018 Instruction Type:Provider Instructions for Treatment How to access health informa tion online Indication:Non-smoker Start:02-Apr-2018 Instruction Type:Patient Education How to access health informa tion online - Detail Indication:Non-smoker Start:02-Apr-2018 Instruction Type:Patient Education Patient Instructions Indication:Non-smoker Start:02-Apr-2018 Instruction Type:Provider Instructions for Treatment How to access health informa tion online Indication:Hypertension Start:20-Mar-2018 Instruction Type:Patient Education How to access health informa tion online - Detail Indication:Hypertension Start:20-Mar-2018 Instruction Type:Patient Education Patient Instructions Indication:Hypertension Start:20-Mar-2018 Instruction Type:Provider Instructions for Treatment How to access health informa tion online Indication:Non-smoker Start:23-Feb-2018 Instruction Type:Patient Education How to access health informa tion online - Detail Indication:Non-smoker Start:23-Feb-2018 Instruction Type:Patient Education Patient Instructions Indication:Non-smoker Start:23-Feb-2018 Instruction Type:Provider Instructions for Treatment Name Dates Details Patient Instructions Indication:Non-smoker Start:08-Mar-2020 Instruction Type:Provider Instructions for Treatment How to Access Health Informa tion Online using Patient Portal and [employer] Apps Indication:Non-smoker Start:08-Mar-2020 Instruction Type:Patient Education obesity counseling Indication:Hypertension Start:23-Dec-2019 Instruction Type:Provider Instructions for Treatment How to access health informa tion online Indication:Non-smoker Start:23-Dec-2019 Instruction Type:Patient Education How to access health informa tion online - Detail Indication:Non-smoker Start:23-Dec-2019 Instruction Type:Patient Education Patient Instructions Indication:Non-smoker Start:23-Dec-2019 Instruction Type:Provider Instructions for Treatment How to access health informa tion online Indication:Non-smoker Start:08-Dec-2019 Instruction Type:Patient Education How to access health informa tion online - Detail Indication:Non-smoker Start:08-Dec-2019 Instruction Type:Patient Education Patient Instructions Indication:Non-smoker Start:08-Dec-2019 Instruction Type:Provider Instructions for Treatment How to access health informa tion online Indication:Non-smoker Start:11-Oct-2019 Instruction Type:Patient Education How to access health informa tion online - Detail Indication:Non-smoker Start:11-Oct-2019 Instruction Type:Patient Education Patient Instructions Indication:Non-smoker Start:11-Oct-2019 Instruction Type:Provider Instructions for Treatment How to access health informa tion online - Detail Indication:Non-smoker Start:21-Jul-2019 Instruction Type:Patient Education How to access health informa tion online Indication:Non-smoker Start:21-Jul-2019 Instruction Type:Patient Education Patient Instructions Indication:Non-smoker Start:21-Jul-2019 Instruction Type:Provider Instructions for Treatment How to access health informa tion online - Detail Indication:BMI 31.0-31.9,adult Start:09-Jun-2019 Instruction Type:Patient Education How to access health informa tion online Indication:BMI 31.0-31.9,adult Start:09-Jun-2019 Instruction Type:Patient Education Patient Instructions Indication:BMI 31.0-31.9,adult Start:09-Jun-2019 Instruction Type:Provider Instructions for Treatment How to access health informa tion online Indication:Non-smoker Start:26-Mar-2019 Instruction Type:Patient Education How to access health informa tion online - Detail Indication:Non-smoker Start:26-Mar-2019 Instruction Type:Patient Education Patient Instructions Indication:Non-smoker Start:26-Mar-2019 Instruction Type:Provider Instructions for Treatment How to access health informa tion online Indication:Non-smoker Start:22-Jan-2019 Instruction Type:Patient Education How to access health informa tion online - Detail Indication:Non-smoker Start:22-Jan-2019 Instruction Type:Patient Education Patient Instructions Indication:Non-smoker Start:22-Jan-2019 Instruction Type:Provider Instructions for Treatment How to access health informa tion online Indication:Non-smoker Start:24-Aug-2018 Instruction Type:Patient Education How to access health informa tion online - Detail Indication:Non-smoker Start:24-Aug-2018 Instruction Type:Patient Education Patient Instructions Indication:Non-smoker Start:24-Aug-2018 Instruction Type:Provider Instructions for Treatment How to access health informa tion online Indication:Non-smoker Start:13-Jul-2018 Instruction Type:Patient Education How to access health informa tion online - Detail Indication:Non-smoker Start:13-Jul-2018 Instruction Type:Patient Education Patient Instructions Indication:Flashing lights Start:13-Jul-2018 Instruction Type:Provider Instructions for Treatment How to access health informa tion online Indication:Non-smoker Start:21-May-2018 Instruction Type:Patient Education How to access health informa tion online - Detail Indication:Non-smoker Start:21-May-2018 Instruction Type:Patient Education Patient Instructions Indication:Non-smoker Start:21-May-2018 Instruction Type:Provider Instructions for Treatment How to access health informa tion online Indication:Non-smoker Start:01-May-2018 Instruction Type:Patient Education How to access health informa tion online - Detail Indication:Non-smoker Start:01-May-2018 Instruction Type:Patient Education Patient Instructions Indication:Non-smoker Start:01-May-2018 Instruction Type:Provider Instructions for Treatment How to access health informa tion online Indication:Non-smoker Start:02-Apr-2018 Instruction Type:Patient Education How to access health informa tion online - Detail Indication:Non-smoker Start:02-Apr-2018 Instruction Type:Patient Education Patient Instructions Indication:Non-smoker Start:02-Apr-2018 Instruction Type:Provider Instructions for Treatment How to access health informa tion online Indication:Hypertension Start:20-Mar-2018 Instruction Type:Patient Education How to access health informa tion online - Detail Indication:Hypertension Start:20-Mar-2018 Instruction Type:Patient Education Patient Instructions Indication:Hypertension Start:20-Mar-2018 Instruction Type:Provider Instructions for Treatment How to access health informa tion online Indication:Non-smoker Start:23-Feb-2018 Instruction Type:Patient Education How to access health informa tion online - Detail Indication:Non-smoker Start:23-Feb-2018 Instruction Type:Patient Education Patient Instructions Indication:Non-smoker Start:23-Feb-2018 Instruction Type:Provider Instructions for Treatment Name Dates Details How to access health informa tion online - Detail Indication:Non-smoker Start:21-Jul-2019 Instruction Type:Patient Education How to access health informa tion online Indication:Non-smoker Start:21-Jul-2019 Instruction Type:Patient Education Patient Instructions Indication:Non-smoker Start:21-Jul-2019 Instruction Type:Provider Instructions for Treatment How to access health informa tion online - Detail Indication:BMI 31.0-31.9,adult Start:09-Jun-2019 Instruction Type:Patient Education How to access health informa tion online Indication:BMI 31.0-31.9,adult Start:09-Jun-2019 Instruction Type:Patient Education Patient Instructions Indication:BMI 31.0-31.9,adult Start:09-Jun-2019 Instruction Type:Provider Instructions for Treatment How to access health informa tion online Indication:Non-smoker Start:26-Mar-2019 Instruction Type:Patient Education How to access health informa tion online - Detail Indication:Non-smoker Start:26-Mar-2019 Instruction Type:Patient Education Patient Instructions Indication:Non-smoker Start:26-Mar-2019 Instruction Type:Provider Instructions for Treatment How to access health informa tion online Indication:Non-smoker Start:22-Jan-2019 Instruction Type:Patient Education How to access health informa tion online - Detail Indication:Non-smoker Start:22-Jan-2019 Instruction Type:Patient Education Patient Instructions Indication:Non-smoker Start:22-Jan-2019 Instruction Type:Provider Instructions for Treatment How to access health informa tion online Indication:Non-smoker Start:24-Aug-2018 Instruction Type:Patient Education How to access health informa tion online - Detail Indication:Non-smoker Start:24-Aug-2018 Instruction Type:Patient Education Patient Instructions Indication:Non-smoker Start:24-Aug-2018 Instruction Type:Provider Instructions for Treatment How to access health informa tion online Indication:Non-smoker Start:13-Jul-2018 Instruction Type:Patient Education How to access health informa tion online - Detail Indication:Non-smoker Start:13-Jul-2018 Instruction Type:Patient Education Patient Instructions Indication:Flashing lights Start:13-Jul-2018 Instruction Type:Provider Instructions for Treatment How to access health informa tion online Indication:Non-smoker Start:21-May-2018 Instruction Type:Patient Education How to access health informa tion online - Detail Indication:Non-smoker Start:21-May-2018 Instruction Type:Patient Education Patient Instructions Indication:Non-smoker Start:21-May-2018 Instruction Type:Provider Instructions for Treatment How to access health informa tion online Indication:Non-smoker Start:01-May-2018 Instruction Type:Patient Education How to access health informa tion online - Detail Indication:Non-smoker Start:01-May-2018 Instruction Type:Patient Education Patient Instructions Indication:Non-smoker Start:01-May-2018 Instruction Type:Provider Instructions for Treatment How to access health informa tion online Indication:Non-smoker Start:02-Apr-2018 Instruction Type:Patient Education How to access health informa tion online - Detail Indication:Non-smoker Start:02-Apr-2018 Instruction Type:Patient Education Patient Instructions Indication:Non-smoker Start:02-Apr-2018 Instruction Type:Provider Instructions for Treatment How to access health informa tion online Indication:Hypertension Start:20-Mar-2018 Instruction Type:Patient Education How to access health informa tion online - Detail Indication:Hypertension Start:20-Mar-2018 Instruction Type:Patient Education Patient Instructions Indication:Hypertension Start:20-Mar-2018 Instruction Type:Provider Instructions for Treatment How to access health informa tion online Indication:Non-smoker Start:23-Feb-2018 Instruction Type:Patient Education How to access health informa tion online - Detail Indication:Non-smoker Start:23-Feb-2018 Instruction Type:Patient Education Patient Instructions Indication:Non-smoker Start:23-Feb-2018 Instruction Type:Provider Instructions for Treatment Name Dates Details How to access health informa tion online Indication:Non-smoker Start:08-Dec-2019 Instruction Type:Patient Education How to access health informa tion online - Detail Indication:Non-smoker Start:08-Dec-2019 Instruction Type:Patient Education Patient Instructions Indication:Non-smoker Start:08-Dec-2019 Instruction Type:Provider Instructions for Treatment How to access health informa tion online Indication:Non-smoker Start:11-Oct-2019 Instruction Type:Patient Education How to access health informa tion online - Detail Indication:Non-smoker Start:11-Oct-2019 Instruction Type:Patient Education Patient Instructions Indication:Non-smoker Start:11-Oct-2019 Instruction Type:Provider Instructions for Treatment How to access health informa tion online - Detail Indication:Non-smoker Start:21-Jul-2019 Instruction Type:Patient Education How to access health informa tion online Indication:Non-smoker Start:21-Jul-2019 Instruction Type:Patient Education Patient Instructions Indication:Non-smoker Start:21-Jul-2019 Instruction Type:Provider Instructions for Treatment How to access health informa tion online - Detail Indication:BMI 31.0-31.9,adult Start:09-Jun-2019 Instruction Type:Patient Education How to access health informa tion online Indication:BMI 31.0-31.9,adult Start:09-Jun-2019 Instruction Type:Patient Education Patient Instructions Indication:BMI 31.0-31.9,adult Start:09-Jun-2019 Instruction Type:Provider Instructions for Treatment How to access health informa tion online Indication:Non-smoker Start:26-Mar-2019 Instruction Type:Patient Education How to access health informa tion online - Detail Indication:Non-smoker Start:26-Mar-2019 Instruction Type:Patient Education Patient Instructions Indication:Non-smoker Start:26-Mar-2019 Instruction Type:Provider Instructions for Treatment How to access health informa tion online Indication:Non-smoker Start:22-Jan-2019 Instruction Type:Patient Education How to access health informa tion online - Detail Indication:Non-smoker Start:22-Jan-2019 Instruction Type:Patient Education Patient Instructions Indication:Non-smoker Start:22-Jan-2019 Instruction Type:Provider Instructions for Treatment How to access health informa tion online Indication:Non-smoker Start:24-Aug-2018 Instruction Type:Patient Education How to access health informa tion online - Detail Indication:Non-smoker Start:24-Aug-2018 Instruction Type:Patient Education Patient Instructions Indication:Non-smoker Start:24-Aug-2018 Instruction Type:Provider Instructions for Treatment How to access health informa tion online Indication:Non-smoker Start:13-Jul-2018 Instruction Type:Patient Education How to access health informa tion online - Detail Indication:Non-smoker Start:13-Jul-2018 Instruction Type:Patient Education Patient Instructions Indication:Flashing lights Start:13-Jul-2018 Instruction Type:Provider Instructions for Treatment How to access health informa tion online Indication:Non-smoker Start:21-May-2018 Instruction Type:Patient Education How to access health informa tion online - Detail Indication:Non-smoker Start:21-May-2018 Instruction Type:Patient Education Patient Instructions Indication:Non-smoker Start:21-May-2018 Instruction Type:Provider Instructions for Treatment How to access health informa tion online Indication:Non-smoker Start:01-May-2018 Instruction Type:Patient Education How to access health informa tion online - Detail Indication:Non-smoker Start:01-May-2018 Instruction Type:Patient Education Patient Instructions Indication:Non-smoker Start:01-May-2018 Instruction Type:Provider Instructions for Treatment How to access health informa tion online Indication:Non-smoker Start:02-Apr-2018 Instruction Type:Patient Education How to access health informa tion online - Detail Indication:Non-smoker Start:02-Apr-2018 Instruction Type:Patient Education Patient Instructions Indication:Non-smoker Start:02-Apr-2018 Instruction Type:Provider Instructions for Treatment How to access health informa tion online Indication:Hypertension Start:20-Mar-2018 Instruction Type:Patient Education How to access health informa tion online - Detail Indication:Hypertension Start:20-Mar-2018 Instruction Type:Patient Education Patient Instructions Indication:Hypertension Start:20-Mar-2018 Instruction Type:Provider Instructions for Treatment How to access health informa tion online Indication:Non-smoker Start:23-Feb-2018 Instruction Type:Patient Education How to access health informa tion online - Detail Indication:Non-smoker Start:23-Feb-2018 Instruction Type:Patient Education Patient Instructions Indication:Non-smoker Start:23-Feb-2018 Instruction Type:Provider Instructions for Treatment Name Dates Details Patient Instructions Indication:Non-smoker Start:08-Mar-2020 Instruction Type:Provider Instructions for Treatment How to Access Health Informa tion Online using Patient Portal and [employer] Apps Indication:Non-smoker Start:08-Mar-2020 Instruction Type:Patient Education obesity counseling Indication:Hypertension Start:23-Dec-2019 Instruction Type:Provider Instructions for Treatment How to access health informa tion online Indication:Non-smoker Start:23-Dec-2019 Instruction Type:Patient Education How to access health informa tion online - Detail Indication:Non-smoker Start:23-Dec-2019 Instruction Type:Patient Education Patient Instructions Indication:Non-smoker Start:23-Dec-2019 Instruction Type:Provider Instructions for Treatment How to access health informa tion online Indication:Non-smoker Start:08-Dec-2019 Instruction Type:Patient Education How to access health informa tion online - Detail Indication:Non-smoker Start:08-Dec-2019 Instruction Type:Patient Education Patient Instructions Indication:Non-smoker Start:08-Dec-2019 Instruction Type:Provider Instructions for Treatment How to access health informa tion online Indication:Non-smoker Start:11-Oct-2019 Instruction Type:Patient Education How to access health informa tion online - Detail Indication:Non-smoker Start:11-Oct-2019 Instruction Type:Patient Education Patient Instructions Indication:Non-smoker Start:11-Oct-2019 Instruction Type:Provider Instructions for Treatment How to access health informa tion online - Detail Indication:Non-smoker Start:21-Jul-2019 Instruction Type:Patient Education How to access health informa tion online Indication:Non-smoker Start:21-Jul-2019 Instruction Type:Patient Education Patient Instructions Indication:Non-smoker Start:21-Jul-2019 Instruction Type:Provider Instructions for Treatment How to access health informa tion online - Detail Indication:BMI 31.0-31.9,adult Start:09-Jun-2019 Instruction Type:Patient Education How to access health informa tion online Indication:BMI 31.0-31.9,adult Start:09-Jun-2019 Instruction Type:Patient Education Patient Instructions Indication:BMI 31.0-31.9,adult Start:09-Jun-2019 Instruction Type:Provider Instructions for Treatment How to access health informa tion online Indication:Non-smoker Start:26-Mar-2019 Instruction Type:Patient Education How to access health informa tion online - Detail Indication:Non-smoker Start:26-Mar-2019 Instruction Type:Patient Education Patient Instructions Indication:Non-smoker Start:26-Mar-2019 Instruction Type:Provider Instructions for Treatment How to access health informa tion online Indication:Non-smoker Start:22-Jan-2019 Instruction Type:Patient Education How to access health informa tion online - Detail Indication:Non-smoker Start:22-Jan-2019 Instruction Type:Patient Education Patient Instructions Indication:Non-smoker Start:22-Jan-2019 Instruction Type:Provider Instructions for Treatment How to access health informa tion online Indication:Non-smoker Start:24-Aug-2018 Instruction Type:Patient Education How to access health informa tion online - Detail Indication:Non-smoker Start:24-Aug-2018 Instruction Type:Patient Education Patient Instructions Indication:Non-smoker Start:24-Aug-2018 Instruction Type:Provider Instructions for Treatment How to access health informa tion online Indication:Non-smoker Start:13-Jul-2018 Instruction Type:Patient Education How to access health informa tion online - Detail Indication:Non-smoker Start:13-Jul-2018 Instruction Type:Patient Education Patient Instructions Indication:Flashing lights Start:13-Jul-2018 Instruction Type:Provider Instructions for Treatment How to access health informa tion online Indication:Non-smoker Start:21-May-2018 Instruction Type:Patient Education How to access health informa tion online - Detail Indication:Non-smoker Start:21-May-2018 Instruction Type:Patient Education Patient Instructions Indication:Non-smoker Start:21-May-2018 Instruction Type:Provider Instructions for Treatment How to access health informa tion online Indication:Non-smoker Start:01-May-2018 Instruction Type:Patient Education How to access health informa tion online - Detail Indication:Non-smoker Start:01-May-2018 Instruction Type:Patient Education Patient Instructions Indication:Non-smoker Start:01-May-2018 Instruction Type:Provider Instructions for Treatment How to access health informa tion online Indication:Non-smoker Start:02-Apr-2018 Instruction Type:Patient Education How to access health informa tion online - Detail Indication:Non-smoker Start:02-Apr-2018 Instruction Type:Patient Education Patient Instructions Indication:Non-smoker Start:02-Apr-2018 Instruction Type:Provider Instructions for Treatment How to access health informa tion online Indication:Hypertension Start:20-Mar-2018 Instruction Type:Patient Education How to access health informa tion online - Detail Indication:Hypertension Start:20-Mar-2018 Instruction Type:Patient Education Patient Instructions Indication:Hypertension Start:20-Mar-2018 Instruction Type:Provider Instructions for Treatment How to access health informa tion online Indication:Non-smoker Start:23-Feb-2018 Instruction Type:Patient Education How to access health informa tion online - Detail Indication:Non-smoker Start:23-Feb-2018 Instruction Type:Patient Education Patient Instructions Indication:Non-smoker Start:23-Feb-2018 Instruction Type:Provider Instructions for Treatment Name Dates Details Patient Instructions Indication:Non-smoker Start:08-Mar-2020 Instruction Type:Provider Instructions for Treatment How to Access Health Informa tion Online using Patient Portal and [employer] Apps Indication:Non-smoker Start:08-Mar-2020 Instruction Type:Patient Education obesity counseling Indication:Hypertension Start:23-Dec-2019 Instruction Type:Provider Instructions for Treatment How to access health informa tion online Indication:Non-smoker Start:23-Dec-2019 Instruction Type:Patient Education How to access health informa tion online - Detail Indication:Non-smoker Start:23-Dec-2019 Instruction Type:Patient Education Patient Instructions Indication:Non-smoker Start:23-Dec-2019 Instruction Type:Provider Instructions for Treatment How to access health informa tion online Indication:Non-smoker Start:08-Dec-2019 Instruction Type:Patient Education How to access health informa tion online - Detail Indication:Non-smoker Start:08-Dec-2019 Instruction Type:Patient Education Patient Instructions Indication:Non-smoker Start:08-Dec-2019 Instruction Type:Provider Instructions for Treatment How to access health informa tion online Indication:Non-smoker Start:11-Oct-2019 Instruction Type:Patient Education How to access health informa tion online - Detail Indication:Non-smoker Start:11-Oct-2019 Instruction Type:Patient Education Patient Instructions Indication:Non-smoker Start:11-Oct-2019 Instruction Type:Provider Instructions for Treatment How to access health informa tion online - Detail Indication:Non-smoker Start:21-Jul-2019 Instruction Type:Patient Education How to access health informa tion online Indication:Non-smoker Start:21-Jul-2019 Instruction Type:Patient Education Patient Instructions Indication:Non-smoker Start:21-Jul-2019 Instruction Type:Provider Instructions for Treatment How to access health informa tion online - Detail Indication:BMI 31.0-31.9,adult Start:09-Jun-2019 Instruction Type:Patient Education How to access health informa tion online Indication:BMI 31.0-31.9,adult Start:09-Jun-2019 Instruction Type:Patient Education Patient Instructions Indication:BMI 31.0-31.9,adult Start:09-Jun-2019 Instruction Type:Provider Instructions for Treatment How to access health informa tion online Indication:Non-smoker Start:26-Mar-2019 Instruction Type:Patient Education How to access health informa tion online - Detail Indication:Non-smoker Start:26-Mar-2019 Instruction Type:Patient Education Patient Instructions Indication:Non-smoker Start:26-Mar-2019 Instruction Type:Provider Instructions for Treatment How to access health informa tion online Indication:Non-smoker Start:22-Jan-2019 Instruction Type:Patient Education How to access health informa tion online - Detail Indication:Non-smoker Start:22-Jan-2019 Instruction Type:Patient Education Patient Instructions Indication:Non-smoker Start:22-Jan-2019 Instruction Type:Provider Instructions for Treatment How to access health informa tion online Indication:Non-smoker Start:24-Aug-2018 Instruction Type:Patient Education How to access health informa tion online - Detail Indication:Non-smoker Start:24-Aug-2018 Instruction Type:Patient Education Patient Instructions Indication:Non-smoker Start:24-Aug-2018 Instruction Type:Provider Instructions for Treatment How to access health informa tion online Indication:Non-smoker Start:13-Jul-2018 Instruction Type:Patient Education How to access health informa tion online - Detail Indication:Non-smoker Start:13-Jul-2018 Instruction Type:Patient Education Patient Instructions Indication:Flashing lights Start:13-Jul-2018 Instruction Type:Provider Instructions for Treatment How to access health informa tion online Indication:Non-smoker Start:21-May-2018 Instruction Type:Patient Education How to access health informa tion online - Detail Indication:Non-smoker Start:21-May-2018 Instruction Type:Patient Education Patient Instructions Indication:Non-smoker Start:21-May-2018 Instruction Type:Provider Instructions for Treatment How to access health informa tion online Indication:Non-smoker Start:01-May-2018 Instruction Type:Patient Education How to access health informa tion online - Detail Indication:Non-smoker Start:01-May-2018 Instruction Type:Patient Education Patient Instructions Indication:Non-smoker Start:01-May-2018 Instruction Type:Provider Instructions for Treatment How to access health informa tion online Indication:Non-smoker Start:02-Apr-2018 Instruction Type:Patient Education How to access health informa tion online - Detail Indication:Non-smoker Start:02-Apr-2018 Instruction Type:Patient Education Patient Instructions Indication:Non-smoker Start:02-Apr-2018 Instruction Type:Provider Instructions for Treatment How to access health informa tion online Indication:Hypertension Start:20-Mar-2018 Instruction Type:Patient Education How to access health informa tion online - Detail Indication:Hypertension Start:20-Mar-2018 Instruction Type:Patient Education Patient Instructions Indication:Hypertension Start:20-Mar-2018 Instruction Type:Provider Instructions for Treatment How to access health informa tion online Indication:Non-smoker Start:23-Feb-2018 Instruction Type:Patient Education How to access health informa tion online - Detail Indication:Non-smoker Start:23-Feb-2018 Instruction Type:Patient Education Patient Instructions Indication:Non-smoker Start:23-Feb-2018 Instruction Type:Provider Instructions for Treatment Name Dates Details How to Access Health Informa tion Online using Patient Portal and [employer] Indication:Non-smoker Start:24-May-2020 Instruction Type:Patient Education Patient Instructions Indication:Non-smoker Start:24-May-2020 Instruction Type:Provider Instructions for Treatment Patient Instructions Indication:Non-smoker Start:08-Mar-2020 Instruction Type:Provider Instructions for Treatment How to Access Health Informa tion Online using Patient Portal and [employer] Apps Indication:Non-smoker Start:08-Mar-2020 Instruction Type:Patient Education obesity counseling Indication:Hypertension Start:23-Dec-2019 Instruction Type:Provider Instructions for Treatment How to access health informa tion online Indication:Non-smoker Start:23-Dec-2019 Instruction Type:Patient Education How to access health informa tion online - Detail Indication:Non-smoker Start:23-Dec-2019 Instruction Type:Patient Education Patient Instructions Indication:Non-smoker Start:23-Dec-2019 Instruction Type:Provider Instructions for Treatment How to access health informa tion online Indication:Non-smoker Start:08-Dec-2019 Instruction Type:Patient Education How to access health informa tion online - Detail Indication:Non-smoker Start:08-Dec-2019 Instruction Type:Patient Education Patient Instructions Indication:Non-smoker Start:08-Dec-2019 Instruction Type:Provider Instructions for Treatment How to access health informa tion online Indication:Non-smoker Start:11-Oct-2019 Instruction Type:Patient Education How to access health informa tion online - Detail Indication:Non-smoker Start:11-Oct-2019 Instruction Type:Patient Education Patient Instructions Indication:Non-smoker Start:11-Oct-2019 Instruction Type:Provider Instructions for Treatment How to access health informa tion online - Detail Indication:Non-smoker Start:21-Jul-2019 Instruction Type:Patient Education How to access health informa tion online Indication:Non-smoker Start:21-Jul-2019 Instruction Type:Patient Education Patient Instructions Indication:Non-smoker Start:21-Jul-2019 Instruction Type:Provider Instructions for Treatment How to access health informa tion online - Detail Indication:BMI 31.0-31.9,adult Start:09-Jun-2019 Instruction Type:Patient Education How to access health informa tion online Indication:BMI 31.0-31.9,adult Start:09-Jun-2019 Instruction Type:Patient Education Patient Instructions Indication:BMI 31.0-31.9,adult Start:09-Jun-2019 Instruction Type:Provider Instructions for Treatment How to access health informa tion online Indication:Non-smoker Start:26-Mar-2019 Instruction Type:Patient Education How to access health informa tion online - Detail Indication:Non-smoker Start:26-Mar-2019 Instruction Type:Patient Education Patient Instructions Indication:Non-smoker Start:26-Mar-2019 Instruction Type:Provider Instructions for Treatment How to access health informa tion online Indication:Non-smoker Start:22-Jan-2019 Instruction Type:Patient Education How to access health informa tion online - Detail Indication:Non-smoker Start:22-Jan-2019 Instruction Type:Patient Education Patient Instructions Indication:Non-smoker Start:22-Jan-2019 Instruction Type:Provider Instructions for Treatment How to access health informa tion online Indication:Non-smoker Start:24-Aug-2018 Instruction Type:Patient Education How to access health informa tion online - Detail Indication:Non-smoker Start:24-Aug-2018 Instruction Type:Patient Education Patient Instructions Indication:Non-smoker Start:24-Aug-2018 Instruction Type:Provider Instructions for Treatment How to access health informa tion online Indication:Non-smoker Start:13-Jul-2018 Instruction Type:Patient Education How to access health informa tion online - Detail Indication:Non-smoker Start:13-Jul-2018 Instruction Type:Patient Education Patient Instructions Indication:Flashing lights Start:13-Jul-2018 Instruction Type:Provider Instructions for Treatment How to access health informa tion online Indication:Non-smoker Start:21-May-2018 Instruction Type:Patient Education How to access health informa tion online - Detail Indication:Non-smoker Start:21-May-2018 Instruction Type:Patient Education Patient Instructions Indication:Non-smoker Start:21-May-2018 Instruction Type:Provider Instructions for Treatment How to access health informa tion online Indication:Non-smoker Start:01-May-2018 Instruction Type:Patient Education How to access health informa tion online - Detail Indication:Non-smoker Start:01-May-2018 Instruction Type:Patient Education Patient Instructions Indication:Non-smoker Start:01-May-2018 Instruction Type:Provider Instructions for Treatment How to access health informa tion online Indication:Non-smoker Start:02-Apr-2018 Instruction Type:Patient Education How to access health informa tion online - Detail Indication:Non-smoker Start:02-Apr-2018 Instruction Type:Patient Education Patient Instructions Indication:Non-smoker Start:02-Apr-2018 Instruction Type:Provider Instructions for Treatment How to access health informa tion online Indication:Hypertension Start:20-Mar-2018 Instruction Type:Patient Education How to access health informa tion online - Detail Indication:Hypertension Start:20-Mar-2018 Instruction Type:Patient Education Patient Instructions Indication:Hypertension Start:20-Mar-2018 Instruction Type:Provider Instructions for Treatment How to access health informa tion online Indication:Non-smoker Start:23-Feb-2018 Instruction Type:Patient Education How to access health informa tion online - Detail Indication:Non-smoker Start:23-Feb-2018 Instruction Type:Patient Education Patient Instructions Indication:Non-smoker Start:23-Feb-2018 Instruction Type:Provider Instructions for Treatment Name Dates Details How to Access Health Informa tion Online using Patient Portal and [employer] Apps Indication:Non-smoker Start:24-May-2020 Instruction Type:Patient Education Patient Instructions Indication:Non-smoker Start:24-May-2020 Instruction Type:Provider Instructions for Treatment Patient Instructions Indication:Non-smoker Start:08-Mar-2020 Instruction Type:Provider Instructions for Treatment How to Access Health Informa tion Online using Patient Portal and [employer] Apps Indication:Non-smoker Start:08-Mar-2020 Instruction Type:Patient Education obesity counseling Indication:Hypertension Start:23-Dec-2019 Instruction Type:Provider Instructions for Treatment How to access health informa tion online Indication:Non-smoker Start:23-Dec-2019 Instruction Type:Patient Education How to access health informa tion online - Detail Indication:Non-smoker Start:23-Dec-2019 Instruction Type:Patient Education Patient Instructions Indication:Non-smoker Start:23-Dec-2019 Instruction Type:Provider Instructions for Treatment How to access health informa tion online Indication:Non-smoker Start:08-Dec-2019 Instruction Type:Patient Education How to access health informa tion online - Detail Indication:Non-smoker Start:08-Dec-2019 Instruction Type:Patient Education Patient Instructions Indication:Non-smoker Start:08-Dec-2019 Instruction Type:Provider Instructions for Treatment How to access health informa tion online Indication:Non-smoker Start:11-Oct-2019 Instruction Type:Patient Education How to access health informa tion online - Detail Indication:Non-smoker Start:11-Oct-2019 Instruction Type:Patient Education Patient Instructions Indication:Non-smoker Start:11-Oct-2019 Instruction Type:Provider Instructions for Treatment How to access health informa tion online - Detail Indication:Non-smoker Start:21-Jul-2019 Instruction Type:Patient Education How to access health informa tion online Indication:Non-smoker Start:21-Jul-2019 Instruction Type:Patient Education Patient Instructions Indication:Non-smoker Start:21-Jul-2019 Instruction Type:Provider Instructions for Treatment How to access health informa tion online - Detail Indication:BMI 31.0-31.9,adult Start:09-Jun-2019 Instruction Type:Patient Education How to access health informa tion online Indication:BMI 31.0-31.9,adult Start:09-Jun-2019 Instruction Type:Patient Education Patient Instructions Indication:BMI 31.0-31.9,adult Start:09-Jun-2019 Instruction Type:Provider Instructions for Treatment How to access health informa tion online Indication:Non-smoker Start:26-Mar-2019 Instruction Type:Patient Education How to access health informa tion online - Detail Indication:Non-smoker Start:26-Mar-2019 Instruction Type:Patient Education Patient Instructions Indication:Non-smoker Start:26-Mar-2019 Instruction Type:Provider Instructions for Treatment How to access health informa tion online Indication:Non-smoker Start:22-Jan-2019 Instruction Type:Patient Education How to access health informa tion online - Detail Indication:Non-smoker Start:22-Jan-2019 Instruction Type:Patient Education Patient Instructions Indication:Non-smoker Start:22-Jan-2019 Instruction Type:Provider Instructions for Treatment How to access health informa tion online Indication:Non-smoker Start:24-Aug-2018 Instruction Type:Patient Education How to access health informa tion online - Detail Indication:Non-smoker Start:24-Aug-2018 Instruction Type:Patient Education Patient Instructions Indication:Non-smoker Start:24-Aug-2018 Instruction Type:Provider Instructions for Treatment How to access health informa tion online Indication:Non-smoker Start:13-Jul-2018 Instruction Type:Patient Education How to access health informa tion online - Detail Indication:Non-smoker Start:13-Jul-2018 Instruction Type:Patient Education Patient Instructions Indication:Flashing lights Start:13-Jul-2018 Instruction Type:Provider Instructions for Treatment How to access health informa tion online Indication:Non-smoker Start:21-May-2018 Instruction Type:Patient Education How to access health informa tion online - Detail Indication:Non-smoker Start:21-May-2018 Instruction Type:Patient Education Patient Instructions Indication:Non-smoker Start:21-May-2018 Instruction Type:Provider Instructions for Treatment How to access health informa tion online Indication:Non-smoker Start:01-May-2018 Instruction Type:Patient Education How to access health informa tion online - Detail Indication:Non-smoker Start:01-May-2018 Instruction Type:Patient Education Patient Instructions Indication:Non-smoker Start:01-May-2018 Instruction Type:Provider Instructions for Treatment How to access health informa tion online Indication:Non-smoker Start:02-Apr-2018 Instruction Type:Patient Education How to access health informa tion online - Detail Indication:Non-smoker Start:02-Apr-2018 Instruction Type:Patient Education Patient Instructions Indication:Non-smoker Start:02-Apr-2018 Instruction Type:Provider Instructions for Treatment How to access health informa tion online Indication:Hypertension Start:20-Mar-2018 Instruction Type:Patient Education How to access health informa tion online - Detail Indication:Hypertension Start:20-Mar-2018 Instruction Type:Patient Education Patient Instructions Indication:Hypertension Start:20-Mar-2018 Instruction Type:Provider Instructions for Treatment How to access health informa tion online Indication:Non-smoker Start:23-Feb-2018 Instruction Type:Patient Education How to access health informa tion online - Detail Indication:Non-smoker Start:23-Feb-2018 Instruction Type:Patient Education Patient Instructions Indication:Non-smoker Start:23-Feb-2018 Instruction Type:Provider Instructions for Treatment Name Dates Details How to access health informa tion online Indication:Non-smoker Start:13-Jul-2018 Instruction Type:Patient Education How to access health informa tion online - Detail Indication:Non-smoker Start:13-Jul-2018 Instruction Type:Patient Education Patient Instructions Indication:Flashing lights Start:13-Jul-2018 Instruction Type:Provider Instructions for Treatment How to access health informa tion online Indication:Non-smoker Start:21-May-2018 Instruction Type:Patient Education How to access health informa tion online - Detail Indication:Non-smoker Start:21-May-2018 Instruction Type:Patient Education Patient Instructions Indication:Non-smoker Start:21-May-2018 Instruction Type:Provider Instructions for Treatment How to access health informa tion online Indication:Non-smoker Start:01-May-2018 Instruction Type:Patient Education How to access health informa tion online - Detail Indication:Non-smoker Start:01-May-2018 Instruction Type:Patient Education Patient Instructions Indication:Non-smoker Start:01-May-2018 Instruction Type:Provider Instructions for Treatment How to access health informa tion online Indication:Non-smoker Start:02-Apr-2018 Instruction Type:Patient Education How to access health informa tion online - Detail Indication:Non-smoker Start:02-Apr-2018 Instruction Type:Patient Education Patient Instructions Indication:Non-smoker Start:02-Apr-2018 Instruction Type:Provider Instructions for Treatment How to access health informa tion online Indication:Hypertension Start:20-Mar-2018 Instruction Type:Patient Education How to access health informa tion online - Detail Indication:Hypertension Start:20-Mar-2018 Instruction Type:Patient Education Patient Instructions Indication:Hypertension Start:20-Mar-2018 Instruction Type:Provider Instructions for Treatment How to access health informa tion online Indication:Non-smoker Start:23-Feb-2018 Instruction Type:Patient Education How to access health informa tion online - Detail Indication:Non-smoker Start:23-Feb-2018 Instruction Type:Patient Education Patient Instructions Indication:Non-smoker Start:23-Feb-2018 Instruction Type:Provider Instructions for Treatment Name Dates Details How to Access Health Informa tion Online using Patient Portal and [employer] Apps Indication:Non-smoker Start:07-Jun-2020 Instruction Type:Patient Education Patient Instructions Indication:Non-smoker Start:07-Jun-2020 Instruction Type:Provider Instructions for Treatment How to Access Health Informa tion Online using Patient Portal and [employer] Apps Indication:Non-smoker Start:24-May-2020 Instruction Type:Patient Education Patient Instructions Indication:Non-smoker Start:24-May-2020 Instruction Type:Provider Instructions for Treatment Patient Instructions Indication:Non-smoker Start:08-Mar-2020 Instruction Type:Provider Instructions for Treatment How to Access Health Informa tion Online using Patient Portal and [employer] Apps Indication:Non-smoker Start:08-Mar-2020 Instruction Type:Patient Education obesity counseling Indication:Hypertension Start:23-Dec-2019 Instruction Type:Provider Instructions for Treatment How to access health informa tion online Indication:Non-smoker Start:23-Dec-2019 Instruction Type:Patient Education How to access health informa tion online - Detail Indication:Non-smoker Start:23-Dec-2019 Instruction Type:Patient Education Patient Instructions Indication:Non-smoker Start:23-Dec-2019 Instruction Type:Provider Instructions for Treatment How to access health informa tion online Indication:Non-smoker Start:08-Dec-2019 Instruction Type:Patient Education How to access health informa tion online - Detail Indication:Non-smoker Start:08-Dec-2019 Instruction Type:Patient Education Patient Instructions Indication:Non-smoker Start:08-Dec-2019 Instruction Type:Provider Instructions for Treatment How to access health informa tion online Indication:Non-smoker Start:11-Oct-2019 Instruction Type:Patient Education How to access health informa tion online - Detail Indication:Non-smoker Start:11-Oct-2019 Instruction Type:Patient Education Patient Instructions Indication:Non-smoker Start:11-Oct-2019 Instruction Type:Provider Instructions for Treatment How to access health informa tion online - Detail Indication:Non-smoker Start:21-Jul-2019 Instruction Type:Patient Education How to access health informa tion online Indication:Non-smoker Start:21-Jul-2019 Instruction Type:Patient Education Patient Instructions Indication:Non-smoker Start:21-Jul-2019 Instruction Type:Provider Instructions for Treatment How to access health informa tion online - Detail Indication:BMI 31.0-31.9,adult Start:09-Jun-2019 Instruction Type:Patient Education How to access health informa tion online Indication:BMI 31.0-31.9,adult Start:09-Jun-2019 Instruction Type:Patient Education Patient Instructions Indication:BMI 31.0-31.9,adult Start:09-Jun-2019 Instruction Type:Provider Instructions for Treatment How to access health informa tion online Indication:Non-smoker Start:26-Mar-2019 Instruction Type:Patient Education How to access health informa tion online - Detail Indication:Non-smoker Start:26-Mar-2019 Instruction Type:Patient Education Patient Instructions Indication:Non-smoker Start:26-Mar-2019 Instruction Type:Provider Instructions for Treatment How to access health informa tion online Indication:Non-smoker Start:22-Jan-2019 Instruction Type:Patient Education How to access health informa tion online - Detail Indication:Non-smoker Start:22-Jan-2019 Instruction Type:Patient Education Patient Instructions Indication:Non-smoker Start:22-Jan-2019 Instruction Type:Provider Instructions for Treatment How to access health informa tion online Indication:Non-smoker Start:24-Aug-2018 Instruction Type:Patient Education How to access health informa tion online - Detail Indication:Non-smoker Start:24-Aug-2018 Instruction Type:Patient Education Patient Instructions Indication:Non-smoker Start:24-Aug-2018 Instruction Type:Provider Instructions for Treatment How to access health informa tion online Indication:Non-smoker Start:13-Jul-2018 Instruction Type:Patient Education How to access health informa tion online - Detail Indication:Non-smoker Start:13-Jul-2018 Instruction Type:Patient Education Patient Instructions Indication:Flashing lights Start:13-Jul-2018 Instruction Type:Provider Instructions for Treatment How to access health informa tion online Indication:Non-smoker Start:21-May-2018 Instruction Type:Patient Education How to access health informa tion online - Detail Indication:Non-smoker Start:21-May-2018 Instruction Type:Patient Education Patient Instructions Indication:Non-smoker Start:21-May-2018 Instruction Type:Provider Instructions for Treatment How to access health informa tion online Indication:Non-smoker Start:01-May-2018 Instruction Type:Patient Education How to access health informa tion online - Detail Indication:Non-smoker Start:01-May-2018 Instruction Type:Patient Education Patient Instructions Indication:Non-smoker Start:01-May-2018 Instruction Type:Provider Instructions for Treatment How to access health informa tion online Indication:Non-smoker Start:02-Apr-2018 Instruction Type:Patient Education How to access health informa tion online - Detail Indication:Non-smoker Start:02-Apr-2018 Instruction Type:Patient Education Patient Instructions Indication:Non-smoker Start:02-Apr-2018 Instruction Type:Provider Instructions for Treatment How to access health informa tion online Indication:Hypertension Start:20-Mar-2018 Instruction Type:Patient Education How to access health informa tion online - Detail Indication:Hypertension Start:20-Mar-2018 Instruction Type:Patient Education Patient Instructions Indication:Hypertension Start:20-Mar-2018 Instruction Type:Provider Instructions for Treatment How to access health informa tion online Indication:Non-smoker Start:23-Feb-2018 Instruction Type:Patient Education How to access health informa tion online - Detail Indication:Non-smoker Start:23-Feb-2018 Instruction Type:Patient Education Patient Instructions Indication:Non-smoker Start:23-Feb-2018 Instruction Type:Provider Instructions for Treatment Name Dates Details How to Access Health Informa tion Online using Patient Portal and [employer] Apps Indication:Non-smoker Start:29-Jun-2020 Instruction Type:Patient Education Patient Instructions Indication:Non-smoker Start:29-Jun-2020 Instruction Type:Provider Instructions for Treatment How to Access Health Informa tion Online using Patient Portal and [employer] Apps Indication:Non-smoker Start:07-Jun-2020 Instruction Type:Patient Education Patient Instructions Indication:Non-smoker Start:07-Jun-2020 Instruction Type:Provider Instructions for Treatment How to Access Health Informa tion Online using Patient Portal and [employer] Apps Indication:Non-smoker Start:24-May-2020 Instruction Type:Patient Education Patient Instructions Indication:Non-smoker Start:24-May-2020 Instruction Type:Provider Instructions for Treatment Patient Instructions Indication:Non-smoker Start:08-Mar-2020 Instruction Type:Provider Instructions for Treatment How to Access Health Informa tion Online using Patient Portal and [employer] Apps Indication:Non-smoker Start:08-Mar-2020 Instruction Type:Patient Education obesity counseling Indication:Hypertension Start:23-Dec-2019 Instruction Type:Provider Instructions for Treatment How to access health informa tion online Indication:Non-smoker Start:23-Dec-2019 Instruction Type:Patient Education How to access health informa tion online - Detail Indication:Non-smoker Start:23-Dec-2019 Instruction Type:Patient Education Patient Instructions Indication:Non-smoker Start:23-Dec-2019 Instruction Type:Provider Instructions for Treatment How to access health informa tion online Indication:Non-smoker Start:08-Dec-2019 Instruction Type:Patient Education How to access health informa tion online - Detail Indication:Non-smoker Start:08-Dec-2019 Instruction Type:Patient Education Patient Instructions Indication:Non-smoker Start:08-Dec-2019 Instruction Type:Provider Instructions for Treatment How to access health informa tion online Indication:Non-smoker Start:11-Oct-2019 Instruction Type:Patient Education How to access health informa tion online - Detail Indication:Non-smoker Start:11-Oct-2019 Instruction Type:Patient Education Patient Instructions Indication:Non-smoker Start:11-Oct-2019 Instruction Type:Provider Instructions for Treatment How to access health informa tion online - Detail Indication:Non-smoker Start:21-Jul-2019 Instruction Type:Patient Education How to access health informa tion online Indication:Non-smoker Start:21-Jul-2019 Instruction Type:Patient Education Patient Instructions Indication:Non-smoker Start:21-Jul-2019 Instruction Type:Provider Instructions for Treatment How to access health informa tion online - Detail Indication:BMI 31.0-31.9,adult Start:09-Jun-2019 Instruction Type:Patient Education How to access health informa tion online Indication:BMI 31.0-31.9,adult Start:09-Jun-2019 Instruction Type:Patient Education Patient Instructions Indication:BMI 31.0-31.9,adult Start:09-Jun-2019 Instruction Type:Provider Instructions for Treatment How to access health informa tion online Indication:Non-smoker Start:26-Mar-2019 Instruction Type:Patient Education How to access health informa tion online - Detail Indication:Non-smoker Start:26-Mar-2019 Instruction Type:Patient Education Patient Instructions Indication:Non-smoker Start:26-Mar-2019 Instruction Type:Provider Instructions for Treatment How to access health informa tion online Indication:Non-smoker Start:22-Jan-2019 Instruction Type:Patient Education How to access health informa tion online - Detail Indication:Non-smoker Start:22-Jan-2019 Instruction Type:Patient Education Patient Instructions Indication:Non-smoker Start:22-Jan-2019 Instruction Type:Provider Instructions for Treatment How to access health informa tion online Indication:Non-smoker Start:24-Aug-2018 Instruction Type:Patient Education How to access health informa tion online - Detail Indication:Non-smoker Start:24-Aug-2018 Instruction Type:Patient Education Patient Instructions Indication:Non-smoker Start:24-Aug-2018 Instruction Type:Provider Instructions for Treatment How to access health informa tion online Indication:Non-smoker Start:13-Jul-2018 Instruction Type:Patient Education How to access health informa tion online - Detail Indication:Non-smoker Start:13-Jul-2018 Instruction Type:Patient Education Patient Instructions Indication:Flashing lights Start:13-Jul-2018 Instruction Type:Provider Instructions for Treatment How to access health informa tion online Indication:Non-smoker Start:21-May-2018 Instruction Type:Patient Education How to access health informa tion online - Detail Indication:Non-smoker Start:21-May-2018 Instruction Type:Patient Education Patient Instructions Indication:Non-smoker Start:21-May-2018 Instruction Type:Provider Instructions for Treatment How to access health informa tion online Indication:Non-smoker Start:01-May-2018 Instruction Type:Patient Education How to access health informa tion online - Detail Indication:Non-smoker Start:01-May-2018 Instruction Type:Patient Education Patient Instructions Indication:Non-smoker Start:01-May-2018 Instruction Type:Provider Instructions for Treatment How to access health informa tion online Indication:Non-smoker Start:02-Apr-2018 Instruction Type:Patient Education How to access health informa tion online - Detail Indication:Non-smoker Start:02-Apr-2018 Instruction Type:Patient Education Patient Instructions Indication:Non-smoker Start:02-Apr-2018 Instruction Type:Provider Instructions for Treatment How to access health informa tion online Indication:Hypertension Start:20-Mar-2018 Instruction Type:Patient Education How to access health informa tion online - Detail Indication:Hypertension Start:20-Mar-2018 Instruction Type:Patient Education Patient Instructions Indication:Hypertension Start:20-Mar-2018 Instruction Type:Provider Instructions for Treatment How to access health informa tion online Indication:Non-smoker Start:23-Feb-2018 Instruction Type:Patient Education How to access health informa tion online - Detail Indication:Non-smoker Start:23-Feb-2018 Instruction Type:Patient Education Patient Instructions Indication:Non-smoker Start:23-Feb-2018 Instruction Type:Provider Instructions for Treatment Name Dates Details How to Access Health Informa tion Online using Patient Portal and [employer] Apps Indication:Non-smoker Start:29-Jun-2020 Instruction Type:Patient Education Patient Instructions Indication:Non-smoker Start:29-Jun-2020 Instruction Type:Provider Instructions for Treatment How to Access Health Informa tion Online using Patient Portal and [employer] Apps Indication:Non-smoker Start:07-Jun-2020 Instruction Type:Patient Education Patient Instructions Indication:Non-smoker Start:07-Jun-2020 Instruction Type:Provider Instructions for Treatment How to Access Health Informa tion Online using Patient Portal and [employer] Apps Indication:Non-smoker Start:24-May-2020 Instruction Type:Patient Education Patient Instructions Indication:Non-smoker Start:24-May-2020 Instruction Type:Provider Instructions for Treatment Patient Instructions Indication:Non-smoker Start:08-Mar-2020 Instruction Type:Provider Instructions for Treatment How to Access Health Informa tion Online using Patient Portal and [employer] Apps Indication:Non-smoker Start:08-Mar-2020 Instruction Type:Patient Education obesity counseling Indication:Hypertension Start:23-Dec-2019 Instruction Type:Provider Instructions for Treatment How to access health informa tion online Indication:Non-smoker Start:23-Dec-2019 Instruction Type:Patient Education How to access health informa tion online - Detail Indication:Non-smoker Start:23-Dec-2019 Instruction Type:Patient Education Patient Instructions Indication:Non-smoker Start:23-Dec-2019 Instruction Type:Provider Instructions for Treatment How to access health informa tion online Indication:Non-smoker Start:08-Dec-2019 Instruction Type:Patient Education How to access health informa tion online - Detail Indication:Non-smoker Start:08-Dec-2019 Instruction Type:Patient Education Patient Instructions Indication:Non-smoker Start:08-Dec-2019 Instruction Type:Provider Instructions for Treatment How to access health informa tion online Indication:Non-smoker Start:11-Oct-2019 Instruction Type:Patient Education How to access health informa tion online - Detail Indication:Non-smoker Start:11-Oct-2019 Instruction Type:Patient Education Patient Instructions Indication:Non-smoker Start:11-Oct-2019 Instruction Type:Provider Instructions for Treatment How to access health informa tion online - Detail Indication:Non-smoker Start:21-Jul-2019 Instruction Type:Patient Education How to access health informa tion online Indication:Non-smoker Start:21-Jul-2019 Instruction Type:Patient Education Patient Instructions Indication:Non-smoker Start:21-Jul-2019 Instruction Type:Provider Instructions for Treatment How to access health informa tion online - Detail Indication:BMI 31.0-31.9,adult Start:09-Jun-2019 Instruction Type:Patient Education How to access health informa tion online Indication:BMI 31.0-31.9,adult Start:09-Jun-2019 Instruction Type:Patient Education Patient Instructions Indication:BMI 31.0-31.9,adult Start:09-Jun-2019 Instruction Type:Provider Instructions for Treatment How to access health informa tion online Indication:Non-smoker Start:26-Mar-2019 Instruction Type:Patient Education How to access health informa tion online - Detail Indication:Non-smoker Start:26-Mar-2019 Instruction Type:Patient Education Patient Instructions Indication:Non-smoker Start:26-Mar-2019 Instruction Type:Provider Instructions for Treatment How to access health informa tion online Indication:Non-smoker Start:22-Jan-2019 Instruction Type:Patient Education How to access health informa tion online - Detail Indication:Non-smoker Start:22-Jan-2019 Instruction Type:Patient Education Patient Instructions Indication:Non-smoker Start:22-Jan-2019 Instruction Type:Provider Instructions for Treatment How to access health informa tion online Indication:Non-smoker Start:24-Aug-2018 Instruction Type:Patient Education How to access health informa tion online - Detail Indication:Non-smoker Start:24-Aug-2018 Instruction Type:Patient Education Patient Instructions Indication:Non-smoker Start:24-Aug-2018 Instruction Type:Provider Instructions for Treatment How to access health informa tion online Indication:Non-smoker Start:13-Jul-2018 Instruction Type:Patient Education How to access health informa tion online - Detail Indication:Non-smoker Start:13-Jul-2018 Instruction Type:Patient Education Patient Instructions Indication:Flashing lights Start:13-Jul-2018 Instruction Type:Provider Instructions for Treatment How to access health informa tion online Indication:Non-smoker Start:21-May-2018 Instruction Type:Patient Education How to access health informa tion online - Detail Indication:Non-smoker Start:21-May-2018 Instruction Type:Patient Education Patient Instructions Indication:Non-smoker Start:21-May-2018 Instruction Type:Provider Instructions for Treatment How to access health informa tion online Indication:Non-smoker Start:01-May-2018 Instruction Type:Patient Education How to access health informa tion online - Detail Indication:Non-smoker Start:01-May-2018 Instruction Type:Patient Education Patient Instructions Indication:Non-smoker Start:01-May-2018 Instruction Type:Provider Instructions for Treatment How to access health informa tion online Indication:Non-smoker Start:02-Apr-2018 Instruction Type:Patient Education How to access health informa tion online - Detail Indication:Non-smoker Start:02-Apr-2018 Instruction Type:Patient Education Patient Instructions Indication:Non-smoker Start:02-Apr-2018 Instruction Type:Provider Instructions for Treatment How to access health informa tion online Indication:Hypertension Start:20-Mar-2018 Instruction Type:Patient Education How to access health informa tion online - Detail Indication:Hypertension Start:20-Mar-2018 Instruction Type:Patient Education Patient Instructions Indication:Hypertension Start:20-Mar-2018 Instruction Type:Provider Instructions for Treatment How to access health informa tion online Indication:Non-smoker Start:23-Feb-2018 Instruction Type:Patient Education How to access health informa tion online - Detail Indication:Non-smoker Start:23-Feb-2018 Instruction Type:Patient Education Patient Instructions Indication:Non-smoker Start:23-Feb-2018 Instruction Type:Provider Instructions for Treatment Name Dates Details How to Access Health Informa tion Online using Patient Portal and [employer] Apps Indication:Non-smoker Start:29-Jun-2020 Instruction Type:Patient Education Patient Instructions Indication:Non-smoker Start:29-Jun-2020 Instruction Type:Provider Instructions for Treatment How to Access Health Informa tion Online using Patient Portal and [employer] Apps Indication:Non-smoker Start:07-Jun-2020 Instruction Type:Patient Education Patient Instructions Indication:Non-smoker Start:07-Jun-2020 Instruction Type:Provider Instructions for Treatment How to Access Health Informa tion Online using Patient Portal and [employer] Apps Indication:Non-smoker Start:24-May-2020 Instruction Type:Patient Education Patient Instructions Indication:Non-smoker Start:24-May-2020 Instruction Type:Provider Instructions for Treatment Patient Instructions Indication:Non-smoker Start:08-Mar-2020 Instruction Type:Provider Instructions for Treatment How to Access Health Informa tion Online using Patient Portal and [employer] Apps Indication:Non-smoker Start:08-Mar-2020 Instruction Type:Patient Education obesity counseling Indication:Hypertension Start:23-Dec-2019 Instruction Type:Provider Instructions for Treatment How to access health informa tion online Indication:Non-smoker Start:23-Dec-2019 Instruction Type:Patient Education How to access health informa tion online - Detail Indication:Non-smoker Start:23-Dec-2019 Instruction Type:Patient Education Patient Instructions Indication:Non-smoker Start:23-Dec-2019 Instruction Type:Provider Instructions for Treatment How to access health informa tion online Indication:Non-smoker Start:08-Dec-2019 Instruction Type:Patient Education How to access health informa tion online - Detail Indication:Non-smoker Start:08-Dec-2019 Instruction Type:Patient Education Patient Instructions Indication:Non-smoker Start:08-Dec-2019 Instruction Type:Provider Instructions for Treatment How to access health informa tion online Indication:Non-smoker Start:11-Oct-2019 Instruction Type:Patient Education How to access health informa tion online - Detail Indication:Non-smoker Start:11-Oct-2019 Instruction Type:Patient Education Patient Instructions Indication:Non-smoker Start:11-Oct-2019 Instruction Type:Provider Instructions for Treatment How to access health informa tion online - Detail Indication:Non-smoker Start:21-Jul-2019 Instruction Type:Patient Education How to access health informa tion online Indication:Non-smoker Start:21-Jul-2019 Instruction Type:Patient Education Patient Instructions Indication:Non-smoker Start:21-Jul-2019 Instruction Type:Provider Instructions for Treatment How to access health informa tion online - Detail Indication:BMI 31.0-31.9,adult Start:09-Jun-2019 Instruction Type:Patient Education How to access health informa tion online Indication:BMI 31.0-31.9,adult Start:09-Jun-2019 Instruction Type:Patient Education Patient Instructions Indication:BMI 31.0-31.9,adult Start:09-Jun-2019 Instruction Type:Provider Instructions for Treatment How to access health informa tion online Indication:Non-smoker Start:26-Mar-2019 Instruction Type:Patient Education How to access health informa tion online - Detail Indication:Non-smoker Start:26-Mar-2019 Instruction Type:Patient Education Patient Instructions Indication:Non-smoker Start:26-Mar-2019 Instruction Type:Provider Instructions for Treatment How to access health informa tion online Indication:Non-smoker Start:22-Jan-2019 Instruction Type:Patient Education How to access health informa tion online - Detail Indication:Non-smoker Start:22-Jan-2019 Instruction Type:Patient Education Patient Instructions Indication:Non-smoker Start:22-Jan-2019 Instruction Type:Provider Instructions for Treatment How to access health informa tion online Indication:Non-smoker Start:24-Aug-2018 Instruction Type:Patient Education How to access health informa tion online - Detail Indication:Non-smoker Start:24-Aug-2018 Instruction Type:Patient Education Patient Instructions Indication:Non-smoker Start:24-Aug-2018 Instruction Type:Provider Instructions for Treatment How to access health informa tion online Indication:Non-smoker Start:13-Jul-2018 Instruction Type:Patient Education How to access health informa tion online - Detail Indication:Non-smoker Start:13-Jul-2018 Instruction Type:Patient Education Patient Instructions Indication:Flashing lights Start:13-Jul-2018 Instruction Type:Provider Instructions for Treatment How to access health informa tion online Indication:Non-smoker Start:21-May-2018 Instruction Type:Patient Education How to access health informa tion online - Detail Indication:Non-smoker Start:21-May-2018 Instruction Type:Patient Education Patient Instructions Indication:Non-smoker Start:21-May-2018 Instruction Type:Provider Instructions for Treatment How to access health informa tion online Indication:Non-smoker Start:01-May-2018 Instruction Type:Patient Education How to access health informa tion online - Detail Indication:Non-smoker Start:01-May-2018 Instruction Type:Patient Education Patient Instructions Indication:Non-smoker Start:01-May-2018 Instruction Type:Provider Instructions for Treatment How to access health informa tion online Indication:Non-smoker Start:02-Apr-2018 Instruction Type:Patient Education How to access health informa tion online - Detail Indication:Non-smoker Start:02-Apr-2018 Instruction Type:Patient Education Patient Instructions Indication:Non-smoker Start:02-Apr-2018 Instruction Type:Provider Instructions for Treatment How to access health informa tion online Indication:Hypertension Start:20-Mar-2018 Instruction Type:Patient Education How to access health informa tion online - Detail Indication:Hypertension Start:20-Mar-2018 Instruction Type:Patient Education Patient Instructions Indication:Hypertension Start:20-Mar-2018 Instruction Type:Provider Instructions for Treatment How to access health informa tion online Indication:Non-smoker Start:23-Feb-2018 Instruction Type:Patient Education How to access health informa tion online - Detail Indication:Non-smoker Start:23-Feb-2018 Instruction Type:Patient Education Patient Instructions Indication:Non-smoker Start:23-Feb-2018 Instruction Type:Provider Instructions for Treatment Advance Directives Name Dates Details Immunization Registry [place] - Effective on 02/23/2018. Expiration date unspecified Effective:23-Feb-2018 Name Dates Details Immunization Registry [place] - Effective on 02/23/2018. Expiration date unspecified Effective:23-Feb-2018 Name Dates Details Immunization Registry [place] - Effective on 02/23/2018. Expiration date unspecified Effective:23-Feb-2018 Name Dates Details Immunization Registry [place] - Effective on 02/23/2018. Expiration date unspecified Effective:23-Feb-2018 Name Dates Details Immunization Registry [place] - Effective on 02/23/2018. Expiration date unspecified Effective:23-Feb-2018 Name Dates Details Immunization Registry [place] - Effective on 02/23/2018. Expiration date unspecified Effective:23-Feb-2018 Name Dates Details Immunization Registry [place] - Effective on 02/23/2018. Expiration date unspecified Effective:23-Feb-2018 Name Dates Details Immunization Registry [place] - Effective on 02/23/2018. Expiration date unspecified Effective:23-Feb-2018 Name Dates Details Immunization Registry [place] - Effective on 02/23/2018. Expiration date unspecified Effective:23-Feb-2018 Name Dates Details Immunization Registry [place] - Effective on 02/23/2018. Expiration date unspecified Effective:23-Feb-2018 Name Dates Details Immunization Registry [place] - Effective on 02/23/2018. Expiration date unspecified Effective:23-Feb-2018 Name Dates Details Immunization Registry [place] - Effective on 02/23/2018. Expiration date unspecified Effective:23-Feb-2018 Name Dates Details Immunization Registry [place] - Effective on 02/23/2018. Expiration date unspecified Effective:23-Feb-2018 Name Dates Details Immunization Registry [place] - Effective on 02/23/2018. Expiration date unspecified Effective:23-Feb-2018 Name Dates Details Immunization Registry [place] - Effective on 02/23/2018. Expiration date unspecified Effective:23-Feb-2018 Name Dates Details Immunization Registry [place] - Effective on 02/23/2018. Expiration date unspecified Effective:23-Feb-2018 Name Dates Details Living Will - Effective on . Expiration date unspecified. Scanned Document is available upon request. Effective:26-Apr-2020 Immunization Registry [place] - Effective on 02/23/2018. Expiration date unspecified Effective:23-Feb-2018 Name Dates Details Living Will - Effective on . Expiration date unspecified. Scanned Document is available upon request. Effective:26-Apr-2020 Immunization Registry [place] - Effective on 02/23/2018. Expiration date unspecified Effective:23-Feb-2018 Name Dates Details Living Will - Effective on . Expiration date unspecified. Scanned Document is available upon request. Effective:26-Apr-2020 Immunization Registry [place] - Effective on 02/23/2018. Expiration date unspecified Effective:23-Feb-2018 Name Dates Details Living Will - Effective on . Expiration date unspecified. Scanned Document is available upon request. Effective:26-Apr-2020 Immunization Registry [place] - Effective on 02/23/2018. Expiration date unspecified Effective:23-Feb-2018 Name Dates Details Immunization Registry [place] - Effective on 02/23/2018. Expiration date unspecified Effective:23-Feb-2018 Name Dates Details Living Will - Effective on . Expiration date unspecified. Scanned Document is available upon request. Effective:26-Apr-2020 Immunization Registry [place] - Effective on 02/23/2018. Expiration date unspecified Effective:23-Feb-2018 Name Dates Details Living Will - Effective on . Expiration date unspecified. Scanned Document is available upon request. Effective:26-Apr-2020 Immunization Registry [place] - Effective on 02/23/2018. Expiration date unspecified Effective:23-Feb-2018 Name Dates Details Living Will - Effective on . Expiration date unspecified. Scanned Document is available upon request. Effective:26-Apr-2020 Immunization Registry [place] - Effective on 02/23/2018. Expiration date unspecified Effective:23-Feb-2018 Name Dates Details Living Will - Effective on . Expiration date unspecified. Scanned Document is available upon request. Effective:26-Apr-2020 Immunization Registry [place] - Effective on 02/23/2018. Expiration date unspecified Effective:23-Feb-2018 Name Dates Details Living Will - Effective on . Expiration date unspecified. Scanned Document is available upon request. Effective:26-Apr-2020 Immunization Registry [place] - Effective on 02/23/2018. Expiration date unspecified Effective:23-Feb-2018 Name Dates Details Living Will - Effective on . Expiration date unspecified. Scanned Document is available upon request. Effective:26-Apr-2020 Immunization Registry [place] - Effective on 02/23/2018. Expiration date unspecified Effective:23-Feb-2018 Name Dates Details Living Will - Effective on . Expiration date unspecified. Scanned Document is available upon request. Effective:26-Apr-2020 Immunization Registry [place] - Effective on 02/23/2018. Expiration date unspecified Effective:23-Feb-2018 Name Dates Details Living Will - Effective on . Expiration date unspecified. Scanned Document is available upon request. Effective:26-Apr-2020 Immunization Registry [place] - Effective on 02/23/2018. Expiration date unspecified Effective:23-Feb-2018 Name Dates Details Living Will - Effective on . Expiration date unspecified. Scanned Document is available upon request. Effective:26-Apr-2020 Immunization Registry [place] - Effective on 02/23/2018. Expiration date unspecified Effective:23-Feb-2018 Name Dates Details Living Will - Effective on . Expiration date unspecified. Scanned Document is available upon request. Effective:26-Apr-2020 Immunization Registry [place] - Effective on 02/23/2018. Expiration date unspecified Effective:23-Feb-2018 Name Dates Details Living Will - Effective on . Expiration date unspecified. Scanned Document is available upon request. Effective:26-Apr-2020 Immunization Registry [place] - Effective on 02/23/2018. Expiration date unspecified Effective:23-Feb-2018 Name Dates Details Living Will - Effective on . Expiration date unspecified. Scanned Document is available upon request. Effective:26-Apr-2020 Immunization Registry [place] - Effective on 02/23/2018. Expiration date unspecified Effective:23-Feb-2018 Name Dates Details Living Will - Effective on . Expiration date unspecified. Scanned Document is available upon request. Effective:26-Apr-2020 Immunization Registry [place] - Effective on 02/23/2018. Expiration date unspecified Effective:23-Feb-2018 Name Dates Details Living Will - Effective on . Expiration date unspecified. Scanned Document is available upon request. Effective:26-Apr-2020 Immunization Registry [place] - Effective on 02/23/2018. Expiration date unspecified Effective:23-Feb-2018 Name Dates Details Living Will - Effective on . Expiration date unspecified. Scanned Document is available upon request. Effective:26-Apr-2020 Immunization Registry [place] - Effective on 02/23/2018. Expiration date unspecified Effective:23-Feb-2018 Name Dates Details Living Will - Effective on . Expiration date unspecified. Scanned Document is available upon request. Effective:26-Apr-2020 Immunization Registry [place] - Effective on 02/23/2018. Expiration date unspecified Effective:23-Feb-2018 Name Dates Details Living Will - Effective on . Expiration date unspecified. Scanned Document is available upon request. Effective:26-Apr-2020 Immunization Registry [place] - Effective on 02/23/2018. Expiration date unspecified Effective:23-Feb-2018 Name Dates Details Living Will - Effective on . Expiration date unspecified. Scanned Document is available upon request. Effective:26-Apr-2020 Immunization Registry [place] - Effective on 02/23/2018. Expiration date unspecified Effective:23-Feb-2018 Name Dates Details Living Will - Effective on . Expiration date unspecified. Scanned Document is available upon request. Effective:26-Apr-2020 Immunization Registry [place] - Effective on 02/23/2018. Expiration date unspecified Effective:23-Feb-2018 Name Dates Details Living Will - Effective on . Expiration date unspecified. Scanned Document is available upon request. Effective:26-Apr-2020 Immunization Registry [place] - Effective on 02/23/2018. Expiration date unspecified Effective:23-Feb-2018 Name Dates Details Living Will - Effective on . Expiration date unspecified. Scanned Document is available upon request. Effective:26-Apr-2020 Immunization Registry [place] - Effective on 02/23/2018. Expiration date unspecified Effective:23-Feb-2018 Name Dates Details Living Will - Effective on . Expiration date unspecified. Scanned Document is available upon request. Effective:26-Apr-2020 Immunization Registry [place] - Effective on 02/23/2018. Expiration date unspecified Effective:23-Feb-2018 Name Dates Details Living Will - Effective on . Expiration date unspecified. Scanned Document is available upon request. Effective:26-Apr-2020 Immunization Registry [place] - Effective on 02/23/2018. Expiration date unspecified Effective:23-Feb-2018 Name Dates Details Living Will - Effective on . Expiration date unspecified. Scanned Document is available upon request. Effective:26-Apr-2020 Immunization Registry [place] - Effective on 02/23/2018. Expiration date unspecified Effective:23-Feb-2018 Summary Purpose Additional Source Comments INFORMATION SOURCE (unrecogn ized section and content) FOR RECORDS PERTAINING TO PATIENTS WHO ARE OR HAVE BEEN ENROLLED IN A CHEMICAL DEPENDENCY/SUBSTANCEABUSE PROGRAM, SOME INFORMATION MAY BE OMITTED. This clinical summary was aggregated from multiple sources. Caution should be exercised in using it in the provision of clinical care. This summary normalizes information from multiple sources, and as a consequence, information in this document may materially change the coding, format and clinical context of patient data. In addition, data may be omitted in some cases. CLINICAL DECISIONS SHOULD BE BASED ON THE PRIMARY CLINICAL RECORDS. [employer] [facility]. provides no warranty or guarantee of the accuracy or completeness of information in this document.
[2023-03-29 17:15] VITALS: BP 147/77; PULSE 79; RESP 16; O2SAT 94
== END 2023-03-29 17:17 | disposition home or self-care (01) ==
LOC: ED 17:05
PROVIDERS: Emergency Provider Emergency Medicine; PCP Internal Medicine; Visit Provider Emergency Medicine
DX: S32.10XA Unspecified fracture of sacrum, initial encounter for closed fracture (principal); M25.552 Pain in left hip; I10 Essential (primary) hypertension; Z79.899 Other long term (current) drug therapy
CPT/HCPCS: 99282

== ENCOUNTER → 2023-04-08 | Outpatient (CLI) | payer MEDICARE, BC, SELFPAY ==
--- NOTE | 2023-04-08 13:08 | CT_ITS ---
STUDY: CT PELVIS WITHOUT CONTRAST REASON FOR EXAM: Female, 78 years old. SACRUM FX RADIATION DOSAGE (If Supplied By Facility): CTDIvol = ( 21.96 ) mGy, DLP = ( 603.02 ) mGycm TECHNIQUE: Transaxial imaging of the pelvis was performed with oral contrast, and without intravenous administration of contrast material. Multiplanar coronal and sagittal images were reformatted. Individualized dose optimization techniques were used for this CT. COMPARISON: None. FINDINGS: Normal urinary bladder. Large calcified uterine fibroid. Normal visualized small intestine. There are multiple colonic diverticula of the sigmoid colon consistent with chronic diverticulosis. There is no pelvic fluid. There is no pelvic mass lesion or lymphadenopathy. Normal visualized pelvic arteries. Normal abdominal wall. Nondisplaced linear fracture of the left sacral Alae. The sacroiliac joints are unremarkable. Disc space narrowing and disc degeneration at the L5-S1 level. CT/Pelvis without IV Contrast IMPRESSION: Nondisplaced vertical fracture through the left sacral alae. Electronically Signed: Ross Marie MD at 13:59 EST ,
== END | disposition home or self-care (01) ==
LOC: CT 13:06
PROVIDERS: PCP Internal Medicine; Referring Provider Orthopaedic Surgery; Visit Provider Orthopaedic Surgery
DX: S32.120A Nondisplaced Zone II fracture of sacrum, initial encounter for closed fracture (principal)
CPT/HCPCS: 72192

== ENCOUNTER 2023-05-02 11:07 | Emergency (ER) | payer MEDICARE, BC, SELFPAY ==
[2023-05-02 11:07] VITALS: BP 138/115; PULSE 99; RESP 15; TEMP 36.7; O2SAT 99; BMI 31.8
--- NOTE | 2023-05-02 13:44 | CT_ITS ---
STUDY: CT ABDOMEN AND PELVIS WITH CONTRAST REASON FOR EXAM: Female, 78 years old. Bloody stools. Lower abdominal pain. History of sacral fracture. RADIATION DOSAGE (If Supplied By Facility): CTDIvol = ( 12.38 ) mGy, DLP = ( 723.31 ) mGycm TECHNIQUE: Transaxial images were obtained from the dome of the diaphragm to the symphysis pubis without oral contrast. IV 100mL Isovue-300 was administered. Sagittal and coronal images were reconstructed. Individualized dose optimization techniques were used for this CT. COMPARISON: Comparison is made with prior examination dated April 08, 2023 FINDINGS: The visualized lung bases are unremarkable. The visualized portions of the heart are within normal limits. There is a 1.2 cm x 2.2 cm linear hypodensity in the posterior lateral aspect of the midportion of the right lobe of the liver this may represent either a tiny cyst or possible prior sequela of injury. There are multiple gallstones. Normal spleen. Normal pancreas. Normal bilateral adrenal glands. Normal right kidney. Normal left kidney. There is a small hiatal hernia. Normal small intestine. There is circumferential wall thickening with increased markings in the surrounding peritoneal fat involving the splenic flexure and descending colon. This is suggestive of a colitis possibly mesenteric colitis. There is evidence of sigmoid diverticulosis. The appendix is visualized and appears normal. Normal abdominal aorta. Normal inferior vena cava. Normal retroperitoneum. Normal urinary bladder. A large densely calcified fibroid uterus. Normal abdominal wall. This space narrowing and disc degeneration at the L5-S1 level. Stable nondisplaced linear fracture of the left sacral alae. CT/Abdomen/Pelvis W IV Cont ONLY IMPRESSION: Findings suggestive of a colitis of the left hemicolon as described. Electronically Signed: Ross Marie MD at 15:06 EST ,
--- NOTE | 2023-05-02 13:45 | EDS_ITS ---
HPI HPI - GI History of Present Illness Chief Complaint: GI Bleed Informant: patient Abdominal Pain/Flank Pain Onset: Yesterday Narrative Narrative: Patient presents after passing small amount of bright red blood per rectum without stool today. Yesterday, she states she felt she needed to have a bowel movement and had gradual development of lower abdominal aching and cramping that was quite significant. She states that she sat on the toilet and had a hard time going, but she strained hard for a long time, having several bouts of what appeared to be normal soft nonbloody bowel movements. Subsequently, the discomfort gradually resolved. Today she has not had pain. She denies any nausea or vomiting or generalized/systemic symptoms. No lightheadedness or syncope. She takes no antiplatelet or anticoagulant medications. She had a bilateral tubal ligation but no other abdominal surgeries. She has a history of diverticulosis but has never had to have surgery for. [facility] Medical History Back pain Bulging disc HTN (hypertension) Limb weakness Sacral fracture Home Medications bupropion HCl 75 mg tablet 75 mg PO BID 02/04/18 [History Last Taken Unknown] calcium carbonate 500 mg calcium (1,250 mg) tablet (Calcium 500) 500 mg PO BID 02/04/18 [History Last Taken Unknown] cholecalciferol (vitamin D3) 25 mcg (1,000 unit) capsule 1,000 unit PO DAILY 02/04/18 [History Last Taken Unknown] llcbeaf-hbvxxwjar-[id number]-SKO-akdfy-[id number]-150hb 250 mg-250 mg-120 mg tab tab PO 02/04/18 [History Last Taken Unknown] verapamil 40 mg tablet 40 mg PO BID 02/04/18 [History Last Taken Unknown] tramadol 50 mg tablet 50 mg PO Q6H PRN pain #12 tabs 03/29/23 [Rx Last Taken Unknown] bupropion HCl 450 mg 24 hr tablet, extended release 450 mg PO DAILY 05/02/23 [History Last Taken Unknown] ciprofloxacin HCl 500 mg tablet 500 mg PO BID #20 TABLETS 05/02/23 [Rx Last Taken Unknown] dexlansoprazole 60 mg capsule,biphase delayed release 60 mg PO DAILY 05/02/23 [History Last Taken Unknown] levothyroxine 25 mcg tablet (Synthroid) 25 mcg PO DAILY 05/02/23 [History Last Taken Unknown] losartan 100 mg-hydrochlorothiazide 25 mg tablet 1 tab PO DAILY 05/02/23 [History Last Taken Unknown] metronidazole 500 mg tablet 500 mg PO BID #20 tabs 05/02/23 [Rx Last Taken Unknown] spironolactone 25 mg tablet 25 mg PO DAILY 05/02/23 [History Last Taken Unknown] valacyclovir 500 mg tablet 500 mg PO DAILY PRN 05/02/23 [History Last Taken Unknown] Allergy/AdvReac Type Severity Reaction Status Date / Time Penicillins Allergy Unknown Verified 05/02/23 11:09 Family History Mother Cancer lung Alcohol abuse Father Alcohol abuse Pancreatitis Diabetes Sister Multiple sclerosis Grandfather Heart disease Cancer throat Grandmother Hypertension Surgical History History of cataract surgery History of tubal ligation Social History Smoking Status: Never smoker alcohol intake: current alcohol intake frequency: 3 or more drinks per day Alcohol type: wine ROS ROS ED Constitutional Constitutional ED: Denies chills or fever(s) Eyes Eyes: Denies change in vision or diplopia ENT ENT ED: Denies rhinorrhea or sore throat Cardiovascular Cardiovascular: Denies chest pain or palpitations Respiratory/Chest Respiratory/Chest: Denies cough or dyspnea Gastrointestinal Gastrointestinal: Reports abdominal pain and hematochezia; Denies diarrhea, hematemesis, hemorrhoids, melena, nausea or vomiting Genitourinary Genitourinary ED: Denies dysuria or hematuria Musculoskeletal Musculoskeletal: Denies back pain or neck pain Integumentary Denies abscess or rash Neurologic Neurologic: Denies headache(s), paresthesias or weakness Psychiatric Psychiatric: Denies anxiety or suicidal thoughts EXAM Physical Exam Const Vital Signs: 05/02/23 11:07 Temperature 98.1 F Temperature Source Temporal Pulse Rate 99 Respiratory Rate 15 Blood Pressure 138/115 H Blood Pressure Mean 122 Pulse Ox 99 Oxygen Delivery Method Room Air Positive well nourished and well developed General Appearance ED: well developed and NAD HEENT Reports moist mucous membranes normocephalic and atraumatic Eyes PERRL and EOMs intact bilaterally Neck full ROM and supple Resp normal respiratory effort and clear to auscultation bilaterally Cardio regular rate, regular rhythm and no murmurs GI non-distended Auscultation: normoactive bowel sounds Palpation: soft and other Other Details: Mild diffuse lower abdominal subjective tenderness without guarding or rebound or pulsatile mass. Normal inspection. Narrative: Back/Spine no CVA tenderness General Back: other FROM Extremity normal to inspection General Extremety ED: Negative for edema, pulses abnormal or tenderness General Extremity: Negative for edema or pulses abnormal Neuro oriented x3, CN's II-XII intact bilaterally and no sensory deficits noted Sensorium / Orientation: awake and alert Motor Exam: strength 5/5 throughout Skin no rashes or lesions noted and no wounds MDM MDM MDM Narrative Medical decision making narrative: Patient's blood counts are stable, her blood pressure and other vital signs are normal, and the rest of her labs are unremarkable. Given her abdominal pain and tenderness I did a CT skin, given the diverticulitis, bleeding diverticuli, other causes of colitis, and internal hemorrhoids are also in the differential diagnosis here. The CT images I reviewed as well as report which I agree with, it shows circumferential inflammatory changes in the splenic flexure and descending colon, consistent with some nonspecific colitis. There are diverticulosis in these areas but there are other areas of the colon that appear to be affected, so I take that to me diverticulitis is possible but may or may not be the cause of this. She does not appear to have any other acute abnormalities in the abdomen/pelvis. She is doing well clinically and has no other bouts of bleeding. She is on no antiplatelet or anticoagulant medications that we need to discontinue. At this time I am going to treat her as a possibility of infectious etiologies with antibiotics and have her follow-up with her doctor for now. She is comfortable with that overall plan we discussed reasons to return including hemodynamically significant GI bleeding which we discussed. Lab Data Attestation: I reviewed the patient's lab results. Labs: Laboratory Results - last 24 hr 05/02/23 13:55 WBC 10.2 RBC 3.92 L Hgb 12.6 Hct 38.3 MCV 97.7 MCH 32.1 H MCHC 32.9 RDW Std Deviation 50.1 H RDW Coeff of Curtis 14.0 Plt Count 328 MPV 9.3 Immature Gran % (Auto) 0.500 Neut % (Auto) 73.2 H Lymph % (Auto) 16.2 L Liberty % (Auto) 8.7 Eos % (Auto) 0.7 Baso % (Auto) 0.7 Absolute Neuts (auto) 7.5 Absolute Lymphs (auto) 1.65 Nucleated RBC % 0 Sodium 141 Potassium 3.4 L Chloride 109 H Carbon Dioxide 25.0 Anion Gap 7 BUN 26 H Creatinine 0.70 Estim Creat Clear Calc 57.30 Est GFR (MDRD) Af Amer 104 Est GFR (MDRD) Non-Af 86 BUN/Creatinine Ratio 37.1 H Glucose 121 H Calcium 9.3 Radiography Diagnostic Testing: Clinical Impression(s) from Imaging Studies Abdomen/Pelvis CT 05/02/23 13:44 IMPRESSION: Findings suggestive of a colitis of the left hemicolon as described. Electronically Signed: Ross Marie MD at 15:06 EST , Discharge Plan Triage Chief Complaint: GI Bleed ED Provider: Neil Villarreal Dx/Rx/DC Orders Clinical Impression: Diverticulosis, Colitis, Rectal bleeding Instructions: Rectal Bleeding Tx, ED Understanding Colitis Prescriptions: New metronidazole [metronidazole] 500 mg tablet 500 mg PO BID Qty: 20 0RF ciprofloxacin HCl [ciprofloxacin HCl] 500 mg tablet 500 mg PO BID Qty: 20 0RF No Action verapamil 40 mg tablet 40 mg tablet 40 mg PO BID bupropion HCl 75 mg tablet 75 mg PO BID calcium carbonate [Calcium 500] 500 mg calcium (1,250 mg) tablet 500 mg PO BID cholecalciferol (vitamin D3) 1,000 unit capsule 1,000 unit PO DAILY [id number]-azszumimj-eamaos-WEU-klpsx-[id number]-150hb 250 mg-250 mg-120 mg tab 250-250-120 mg tablet PO tramadol 50 mg tablet 50 mg PO Q6H PRN (Reason: pain) Qty: 12 0RF bupropion HCl 450 mg tablet extended release 24 hr 450 mg PO DAILY dexlansoprazole 60 mg capsule,biphase delayed releas 60 mg PO DAILY levothyroxine [Synthroid] 25 mcg tablet 25 mcg PO DAILY Patient Comments: TAKE 1 TABLET BY MOUTH EVERY DAY losartan-hydrochlorothiazide 100-25 mg tablet 1 tab PO DAILY Patient Comments: TAKE 1 TABLET BY MOUTH EVERY DAY FOR 30 DAYS spironolactone 25 mg tablet 25 mg PO DAILY Patient Comments: TAKE 1 TABLET BY MOUTH EVERY DAY FOR 30 DAYS valacyclovir 500 mg tablet 500 mg PO DAILY PRN Patient Comments: TAKE 1 TABLET BY MOUTH EVERY DAY NEEDED Primary Care Provider: Jailene Aguilar Referrals: Jailene Aguilar, [Primary Care Provider] - As soon as possible Disposition Disposition: Home, Self Care
[2023-05-02] MEDS: 0.9% Normal Saline (1000mL) 1,000 ML 125 ML IV (13:54)
[2023-05-02 14:20] LABS: Absolute Lymphocyte Count 1.65 X10^3/uL (0.83-4.51); Absolute Neutrophil Count 7.5 X10^3/uL (2.0-7.7); Basophil# 0.07 X10^3/uL; Basophil% 0.7 % (0-1); Eosinophil# 0.07 X10^3/uL; Eosinophils% 0.7 % (0-5); Hematocrit 38.3 % (37-47); Hemoglobin 12.6 g/dL (12.0-15.0); Lymphocyte # 1.65 X10^3/ul (0.83-4.51); Lymphocyte % 16.2 % (19-41); Mean Corp Hgb Conc 32.9 g/dL (32-36); Mean Corpuscular Hgb 32.1 pg (27.0-32.0); Mean Corpuscular Volume 97.7 fL (81-99); Mean Platelet Vol. 9.3 fl (6.2-12.0); Monocyte# 0.89 X10^3/uL; Monocyte% 8.7 % (0-10); NRBC Flagged by Analyzer 0 % (0-5); Neutrophil # 7.47 X10^3/uL (2.7-7.7); Neutrophil % 73.2 % (47-70); Platelet Count 328 K/mm3 (150-450); RBC Distribution Width SD 50.1 fl (35.1-43.9); Red Blood Count 3.92 M/mm3 (4.2-5.4); White Blood Count 10.2 K/mm3 (4.4-11.0)
[2023-05-02 14:25] LABS: Anion Gap 7 (5-15); BUN 26 mg/dL (7-18); BUN/Creat Ratio 37.1 RATIO (10-20); Calcium,Total 9.3 mg/dL (8.5-10.1); Chloride 109 mmol/L (98-107); EST Glomerular Filtration Rate 86 mL/min (>60); Est Glom Filt Rate - Afr Amer 104 mL/min (>60); Glucose 121 mg/dL (74-106); Potassium 3.4 mmol/L (3.5-5.1); Sodium Level 141 mmol/L (136-145)
[2023-05-02] MEDS: metroNIDAZOLE 500 MG Tablet PO (16:35)
[2023-05-02] MEDS: Ciprofloxacin 500 MG Tablet PO (16:35)
[2023-05-02 16:41] VITALS: PULSE 78; RESP 16
== END 2023-05-02 16:42 | disposition home or self-care (01) ==
PROVIDERS: Emergency Provider Emergency Medicine; PCP Internal Medicine; Visit Provider Emergency Medicine
DX: K52.9 Noninfective gastroenteritis and colitis, unspecified (principal); K57.90 Diverticulosis of intestine, part unspecified, without perforation or abscess without bleeding; K62.5 Hemorrhage of anus and rectum; Z98.51 Tubal ligation status; I10 Essential (primary) hypertension; Z79.899 Other long term (current) drug therapy
CPT/HCPCS: 74177; 80048; 85025; 96360; 96361; 99282; J7030; Q9967; A4216

== ENCOUNTER → 2023-05-27 | Outpatient (CLI) | payer MEDICARE, BC, SELFPAY ==
--- NOTE | 2023-05-27 10:52 | BD_ITS ---
STUDY: DUAL ENERGY X-RAY ABSORPTIOMETRY / DXA REASON FOR EXAM: Female, 78 years old. Z780 TECHNIQUE: Bone Mineral Density (BMD) measurements of lumbar spine and bilateral hips were obtained. COMPARISON: Comparison is made with prior study May 22, 2021. FINDINGS: Lumbar Spine (L1-L4): g/cm2 (0.942) / T-score (-0.8) / Z-score (1.7) Findings are suggestive of normal bone density with a low fracture risk. Left Femur Total: g/cm2 (0.904) / T-score (-0.3) / Z-score (1.6) Left Femoral Neck: g/cm2 (0.629) / T-score (-2.0) / Z-score (0.2) Right Femur Total: g/cm2 (0.905) / T-score (-0.3) / Z-score (1.6) Right Femoral Neck: g/cm2 (0.697) / T-score (-1.4) / Z-score (0.8) The T-Scores on the most recent prior examination were: Lumbar Spine (L1-L4): There has been worsening of bone density since the previous examination. Left Femur Total: which represents a worsening of 1.3%. Right Femur Total: which represents an improvement of 1.3%. BD/Dexa Bone Density Study IMPRESSION: The patient is considered osteopenic as outlined below according to World Gil Organization (WHO) criteria with a moderate fracture risk. There has been worsening of bone density since the previous examination. Reference Information: The T-score is the number of standard deviations above or below the standard which is normal for young adults at their peak bone mineral density. The World Health Organization (WHO) interprets the T-scores as follows: Above -1 Normal bone density Between -1 and -2.5 Osteopenia Equal to / or below -2.5 Osteoporosis As a practical clinical guideline, osteopenia may be graded as follows: Mild -1 through -1.5 Moderate -1.6 through -2.0 Severe -2.1 through -2.4 The Z-score is the number of standard deviations above or below age-matched controls. A Z-score of less than -1.5 would be considered abnormal. References: 1. NIH Osteoporosis and Related Bone Diseases www osteo.org 2. International Society for Clinical Densitometry www iscd.org 3. National Osteoporosis Foundation www nof.org Electronically Signed: Ross Marie MD at 14:17 EDT ,
== END | disposition home or self-care (01) ==
LOC: OPBD 10:48
PROVIDERS: PCP Internal Medicine; Referring Provider Internal Medicine; Visit Provider Internal Medicine
DX: Z78.0 Asymptomatic menopausal state (principal)
CPT/HCPCS: 77080

== ENCOUNTER 2023-08-07 13:00 | Outpatient (RCR) | payer MEDICARE, BC, SELFPAY ==
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
--- NOTE | 2023-07-10 16:58 | HP.PTREVAL_ITS ---
Re-Evaluation Intro: Dr. Ash Rahman, DO, It has been my pleasure to treat JOSHUA MONTEZ over the last 9 visits for SACRUM FX, LUMBAR RADIC AND LUMBAR DDD. Please see the progress note below for an update on the physical therapy plan of care! Subjective Subjective: PATIENT REPORTS SHE IS HAVE LESS PAIN IN HER SARAH BUTTOCK AND GROIN AREA'S BUT STILL HAVING A LOT OF GROIN PAIN. SHE STATES SHE IS GETTING SOME OF HER STRENGTH BACK AND SHE IS GETTING AROUND BETTER - I'M WALKING WITHOUT A CANE MORE. PATIENT REPORTS SHE FEELS BETTER AFTER THE PT SESSIONS AND SHE WANTS TO CONTINUE. STILL HAVING VETIGO. HER EX'S FROM [facility] USUALLY HELP. WILL CONTACT PCP FOR [facility] IF NEEDED. Objective Objective/Function: PATIENT WAS SEEN TODAY FOR RE-ASSESSMENT OF PROGRESS TOWARD THE SET PT GOALS AND THE NEED FOR FURTHER PHYSICAL THERAPY VS READINESS FOR DISCHARGE. PATIENT IS MAKING GOOD PROGRESS WITH PT AND IS A GOOD CANDIDATE TO CONTINUE PT BASED ON PROGRESS MADE AND ROOM FOR FURTHER IMPROVEMENT. PATIENT IS AGREEABLE UPON EXAM TODAY: Motor deficit: R HIP 4+/5, KNEE 5/5, ANKLE 5/5. L HIP 4/5, KNEE 5/5, ANKLE 5/5. PATIENT REPORTS MILD SARAH GROIN PAIN WITH SARAH HIP TESTING. Reflexes: R QUAD 2/2, ACHILLES 2/2. L QUAD 1/2, ACHILLES 2/2. Dural Signs: NEGATIVE SARAH LE'S. Lumbar mvmt loss: flex - NIL- DECREASES- NB ext - TISHA - DECREASES - NB R SG - MOD - INCREASES - NW L SG - MOD - INCREASES - W CORE STRENGTH: FAIR. Plan Plan Plan: Continue PT 2 times a wk x 4-6 wks. Add Kinesis Sarah Multifidus punches next visit and then add to hep with tbands as tolerated. Gait Training on level surfaces and up and down steps. Neutral Spine Core Stability Exercises and Sarah LE Hip Flexor, Hamstring and Calf Stretching to help reduce stress to the Lumbar Spine with all Daily Activities. Sarah LE Strengthening. Instruction in Proper Posture Control, Body Mechanics, and Appropriate Activity Modifications. HEP Instruction Balance/Gait/Functional tests Balance/Special Test Scores Oswestry Low Back Score: 10 Goals Goals Goal 1:: INDEP AND SAFE GAIT WITHOUT AD ON LEVEL SURFACES AND UP AND DOWN STEPS WITH ONE HR WITHOUT LIMITATION. Goal Time Frame: 4-6 Weeks Goal Progress: Progressing Goal 2:: PATIENT WILL HAVE INCREASED CORE STRENGTH TO GRADE GOOD Goal Time Frame: 4-6 Weeks Goal Progress: Progressing Goal 3:: PATIENT WILL HAVE INCREASED SARAH LE STRENGTH TO GRADE 5/5 WITH MMT WITHOUT C/O PAIN. Goal Time Frame: 4-6 Weeks Goal Progress: Progressing Goal 4:: PATIENT WILL SCORE AT LEAST 5 POINTS BETTER ON LEFS QUESTIONNAIRE Goal Time Frame: 4-6 Weeks Goal Progress: Goal Met Goal 5:: PATIENT WILL BE INDEP WITH A HEP FOR CONTINUED IMPROVEMENT ONCE FORMAL PHYSICAL THERAPY CONCLUDES. Goal Time Frame: 4-6 Weeks Goal Progress: Progressing Anticipated Interventions Anticipated Interventions Patient/Client Instruction: Educate patient on: Condition, Plan of Care and Risk Factors For the Purpose of:: To improve self management Therapeutic Exercise to Include: Strength training, Body mechanics, Postural training, Flexibilty training, Gait and locomotor training, Neuromotor development, In an aquatic setting and Dynamic Lumbar Stabilization For the Purpose of:: To decrease pain, To increase ROM, To improve muscle performance and motor function, To increase tolerance to activity/conditio n/position, To improve ability of physical actions for home/community/work/leisure, To improve gait and locomotor functions, To increase flexibility/ROM and To improve endurance Cryotherapy (ice pack, ice massage): Yes Thermo therapy (hot pack): Yes For the Purpose of:: To decrease pain, To decrease swelling/inflammation and To improve nutrient delivery to tissue Re-Evaluation Ending Re-evaluation ending: Please do not hesitate to contact me at [phone] by phone or if you have questions or concerns regarding this new plan of care! Sincerely, Suni Botello, PT, Cert MDT
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
--- NOTE | 2023-08-07 13:55 | HP.PTDCSUM ---
Discharge Summary D/C summary: It has been my pleasure to treat JOSHUA MONTEZ referred by Dr. Ash Rahman DO, with the diagnosis of SACRUM FX, LUMBAR RADIC AND LUMBAR DDD for a total of 19 visit(s). Discharge Date: 08/07/23 Please see the following information for a summary of their discharge status. 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 PATIENT REPORTS SHE STILL GETS LOW BACK TIGHTNESS BUT IT DOESN'T INHIBIT ANYTHING THAT SHE DOES. SHE STATES SHE FEELS READY TO CONTINUE THE EX'S ON HER OWN NOW. Pain Left Back: Pain Intensity (Out of 10): 1 Groin: Pain Intensity (Out of 10): 0 Overall Improvement % Improvement: 90 Objective Objective/Function: PATIENT WAS SEEN TODAY FOR RE-ASSESSMENT OF PROGRESS TOWARD THE SET PT GOALS AND THE NEED FOR FURTHER PHYSICAL THERAPY VS READINESS FOR DISCHARGE. THIS PATIENT HAS MADE GREAT PROGRESS WITH PT AND IS NOW INDEP WITH A GYM EX PROGRAM. ALL PT GOALS HAVE BEEN MET. SHE IS APPROPRIATE FOR AND AGREEABLE TO DISCHARGE. UPON EXAM TODAY: Motor deficit: SARAH LE'S 5/5 - PATIENT DENIES PAIN WITH TESTING. Lumbar mvmt loss: flex - NIL ext - MOD R SG - MOD - INCREASES - NW L SG - MOD - INCREASES - NW CORE STRENGTH: GOOD Goals Goal 1:: INDEP AND SAFE GAIT WITHOUT AD ON LEVEL SURFACES AND UP AND DOWN STEPS WITH ONE HR WITHOUT LIMITATION. Goal Progress: Goal Met Goal 2:: PATIENT WILL HAVE INCREASED CORE STRENGTH TO GRADE GOOD Goal Progress: Goal Met Goal 3:: PATIENT WILL HAVE INCREASED SARAH LE STRENGTH TO GRADE 5/5 WITH MMT WITHOUT C/O PAIN. Goal Progress: Goal Met Goal 4:: PATIENT WILL SCORE AT LEAST 5 POINTS BETTER ON LEFS QUESTIONNAIRE Goal Progress: Goal Met Goal 5:: PATIENT WILL BE INDEP WITH A HEP FOR CONTINUED IMPROVEMENT ONCE FORMAL PHYSICAL THERAPY CONCLUDES. Goal Progress: Goal Met Plan Plan: D/C D/C Information d/c sentence: If there are questions or concerns regarding this patient's physical therapy, please feel free to call me at [phone]. Thank you for the referral of this patient. Sincerely, Suni Botello, PT, Cert MDT Balance/Gait/Functional tests Balance/Special Test Scores Oswestry Low Back Score: 6 Improvement % Improvement: 90
== END 2023-08-07 17:51 | disposition home or self-care (01) ==
LOC: PT 13:00
PROVIDERS: PCP Internal Medicine; Referring Provider Orthopaedic Surgery; Visit Provider Orthopaedic Surgery
DX: S32.12 Zone II fracture of sacrum (principal); M54.16 Radiculopathy, lumbar region; M51.36 Other intervertebral disc degeneration, lumbar region
CPT/HCPCS: 97110; 97162; 97164; 97530

== ENCOUNTER → 2023-09-26 | Outpatient (CLI) | payer MEDICARE, BC, SELFPAY ==
[2023-09-26 17:33] LABS: Hematocrit 38.4 % (37-47); Hemoglobin 12.3 g/dL (12.0-15.0); Mean Corpuscular Hgb 32.5 pg (27.0-32.0); Mean Corpuscular Volume 101.3 fL (81-99); Mean Platelet Vol. 9.6 fl (6.2-12.0); Platelet Count 326 K/mm3 (150-450); RBC Distribution Width CV 13.8 % (11.6-14.6); RBC Distribution Width SD 50.9 fl (35.1-43.9); Red Blood Count 3.79 M/mm3 (4.2-5.4)
[2023-09-26 17:56] LABS: BUN 25 mg/dL (7-18); Calcium,Total 9.4 mg/dL (8.5-10.1); Chloride 100 mmol/L (98-107); Creatinine, Serum 0.78 mg/dL (0.55-1.02); EST Glomerular Filtration Rate 76 mL/min (>60); Est Glom Filt Rate - Afr Amer 92 mL/min (>60); Glucose 102 mg/dL (74-106); Magnesium 2.3 mg/dL (1.6-2.6); Phosphorus 3.3 mg/dL (2.5-4.9); Potassium 3.5 mmol/L (3.5-5.1); Sodium Level 135 mmol/L (136-145)
[2023-09-26 17:59] LABS: Vitamin D,25 Hydroxy 59.4 ng/mL
[2023-09-26 18:04] LABS: Protein, Urine (Random) 13.2 mg/dL (<11.9); Protein:Creat Ratio 140 mg/g CRE (0-200)
== END | disposition home or self-care (01) ==
LOC: MTLAB 15:05
PROVIDERS: PCP Internal Medicine; Referring Provider Internal Medicine Nephrology; Visit Provider Internal Medicine Nephrology
DX: E55.9 Vitamin D deficiency, unspecified (principal); I10 Essential (primary) hypertension
CPT/HCPCS: 36415; 80069; 82306; 82570; 83735; 84156; 85027

== ENCOUNTER 2024-02-12 12:30 | Outpatient (RCR) | payer MEDICARE, BC, SELFPAY ==
--- NOTE | 2023-11-17 19:32 | HP.PTEVAL ---
Patient's Visit Information Visit Information Visit Information: JOSHUA MONTEZ is a 78 year old F referred to Physical Therapy by Dr. Jailene Michaels DO with a diagnosis of ABNORMAL GAIT/HISTORY OF SACRAL FX. Date of Evaluation: 11/17/23 Physical Therapist: Suni Botello, PT, Cert MDT Visit Plan Frequency: 2x /Week Duration: 6-8 WKS Plan: AQUATIC THERAPY FOR GAIT AND BALANCE TRAINING TO HELP PATIENT GET CONFIDENT MOVING OUTSIDE OF HER CENTER OF GRAVITY WITHOUT FEAR OF FALLING. WORK TO INCREASE SINGLE LEG BALANCE TIME, STRIDE LENGTH, HIP ROM AND LE STRENGTH THROUGH NEW ROM GAINED. PATIENT IS INDEP WITH A GYM EX PROGRAM BUT CONTINUE TO WORK ON CORE STRENGTH AND STABILITY. Subjective Subjective: Work/Leisure: RETIRED Present symptoms: INTERMITTENT CENTRAL LOW BACK PAIN. INTERMITTENT L HIP/THIGH PAIN THAT INCREASES AFTER GETTING OUT OF BED. SARAH LEG WEAKNESS L>R AND DIFFICULTY WALKING (ESPECIALLY AFTER RISING FROM SITTING AND LYING). Present since: ACUTE BACK PAIN FEB 2023 (HISTORY OF SOME CHRONIC LBP PRIOR) Pain Scale: WORST 4/10, LEAST 0/10 Currently: 1/10 Is it getting better, worse or staying the same: GETTING WORSE Commenced as a result of: FX'D SACRUM FEB 2023 - UNKNOWN CAUSE - RECENT INCREASED DIFFICULTY WITH PAIN AND FUNCTION DUE TO INCREASED ACTIVITY BECAUSE TRYING TO GET MORE ACTIVE DURING RECOVERY FROM FRACTURE. Symptoms at onset: SEE PRIOR EPISODE OF CARE WITH PT HERE AT [facility]. Worse: RISING FROM SITTING AND LYING, ACTIVITIES THAT REQUIRE REACHING AND BENDING, TAKING TOO BIG OF A STRIDE, PROLONGED SITTING. Better: SHORTEN STRIDE, MINIMIZING BENDING, LIFTING AND TWISTING, MINIMIZING PROLONGED SITTING. Disturbed sleep: NO Previous history/Previous treatment: SOME PT PRIOR TO SACRAL FX IN ~2018 FOR LBP. SACRAL FX 2022 FROM [facility] CAUSE WITH PT EPISODE OF CARE FOLLOWING WITH GOOD RESULT AND INDEP GYM PROGRAM [facility] MEMBER BUT HAVING DIFFICULTY CONTINUING TO INCREASE ACTIVITY LEVEL FURTHER DUE TO PAIN, STRENGTH AND BALANCE AT THIS POINT. Treatment this episode: PT CONSULT AND CONSULT WITH DR. FISCHER RECOMMENDED BY DR. MICHAELS Coughing/sneezing/straining: NEGATIVE FOR INCREASED PAIN Gait: HASN'T BEEN USING ANY AD'S. GOT LIGHT HEADED AND HAD A CONTROLLED FALL AT HOME ABOUT A MONTH AGO - DENIED ANY INJURIES OR INCREASED PAIN FROM IT. Bowel or Bladder Dysfunction: UI. DENIES BOWEL INCONTINENCE. WILL EMPTY BLADDER BEFORE GETTING IN POOL AND WEAR SWIM BRIEF. Imaging: NONE RECENT PMH/Recent major surgery: HTN - HAVING EPISODES OF LOW BLOOD PRESSURE - CURRENTLY WORKING WITH DR. MICHAELS AND SELF MONITORING. WILL CANCEL IF NEEDED. NO PT IF IF BELOW 110/75. Objective Objective: THIS PATIENT AMBULATES INDEP'LY INTO PT WITH DECREASED SARAH STRIDE LENGTH, NARROW BASE OF SUPPORT AND FAIR CADANCE. NO LOB AND NO AD. SHE IS UNABLE TO SLS ON EITHER LE X > 1-2 SEC EA WITHOUT UE ASSIST. R LE TOEING OUT. POSTURE: SHE HAS REDUCED LUMBAR LORDOSIS BUT NO RELEVANT LATERAL SHIFT. R LE SHORTER THAN L AND WEARS A R SHOE LIFT. Sensory deficit: SARAH LE LIGHT TOUCH SENSATION IS GROSSLY INTACT AND SYMMETRICAL ROM deficit: R HIP ER AND SARAH HS AND CALF TIGHTNESS. Motor deficit: SARAH LE STRENGTH GROSSLY 5/5 WITH MMT'ING. Dural Signs: NEGATIVE SARAH LE'S. Lumbar mvmt loss: flex - MIN ext - MOD R SG - MOD - INCREASES LBP - NW L SG - MOD Core strength: GOOD Balance/Special Test Scores Oswestry Low Back Score: 15 Goals Goal 1:: NORMALIZE GAIT PATTERN ON LEVEL SURFACES WITHOUT C/O BACK PAIN Goal Time Frame: 4-6 Weeks Goal 2:: PATIENT WILL REPORT CONFIDENCE IN STANDING AND WALKING TO DO HER NORMAL ADL'S Goal Time Frame: 4-6 Weeks Goal 3:: PATIENT WILL BE ABLE TO ASCEND AND DESECEND STEPS RECIPROCALLY WITH ONE HR WITHOUT LIMITATION Goal Time Frame: 4-6 Weeks Goal 4:: PATIENT WILL BE INDEP WITH A HOME, GYM AND/OR WATER EX PROGRAM FOR CONTINUED IMPROVEMENT ONCE FORMAL PHYSICAL THERAPY CONCLUDES. Goal Time Frame: 4-6 Weeks Rehabilitation Potential Physical Therapy Diagnosis: DECREASED BALANCE AND BACK PAIN WITH WALKING Rehabilitation Potential: Good Anticipated Interventions Patient/Client Instruction: Educate patient on: Condition, Plan of Care and Risk Factors For the Purpose of:: To improve self management Therapeutic Exercise to Include: Strength training, Balance training, Body mechanics, Postural training, Flexibilty training, Gait and locomotor training, Neuromotor development, In an aquatic setting and Dynamic Lumbar Stabilization For the Purpose of:: To decrease pain, To improve muscle performance and motor function, To increase tolerance to activity/condition/position, To improve ability of physical actions for home/community/work/leisure, To improve gait and locomotor functions, To increase flexibility/ROM, To improve safety with gait and To improve self management Text: Thank you for the opportunity to evaluate your patient. For Medicare and Medicare HMO plans, please review the plan of care and approve it. It will need to be FAXED BACK to us at [phone] for Medicare purposes. For Medicare only, by signing this I certify the plan of care. Please let me know if there are questions or concerns regarding this plan of care. Physician Signature: Date:
--- NOTE | 2024-01-08 13:32 | HP.PTREVAL ---
Re-Evaluation Intro: Dr. Jailene Aguilar, DO, It has been my pleasure to treat JOSHUA MONTEZ over the last 9 visits for ABNORMAL GAIT/HISTORY OF SACRAL FX. Please see the progress note below for an update on the physical therapy plan of care! Subjective Subjective: PATIENT REPORTS HER LEFT BACK AND HIP PAIN HAVE DECREASED A LOT AND SHE JUST HAS AND INTERMITTENT PINCH OF PAIN THERE NOW. SHE REPORTS SHE IS GETTING STRONGER AND HER BALANCE IS GETTING BETTER BUT HER BALANCE IS STILL A PROBLEM. SHE REPORTS SHE WOULD LIKE TO CONTINUE IN THE POOL TO CONTINUE TO GAIN STRENGTH AND BECOME INDEP WITH A POOL PROGRAM THAT SHE CAN CONTINUE WITH HER MEMBERSHIP ALONG WITH HER GYM EX'S. I FEEL LIKE THINGS ARE ALL COMING TOGETHER. SHE REPORTS SHE IS SO GLAD SHE AGREED TO TRY THE POOL BECAUSE SHE FEELS SAFE WORKING ON HER BALANCE AND WANTS TO LEARN MORE AND GET STRONGER NOW THAT THE PAIN IS SUBSIDING. SHE REPORTS THIS IS THE BEST SHE HAS FELT AND WALKED SINCE SHE BROKE HER BACK 10 MONTHS AGO. Objective Objective/Function: PATIENT WAS SEEN TODAY FOR RE-ASSESSMENT OF PROGRESS TOWARD THE SET PT GOALS AND THE NEED FOR FURTHER PHYSICAL THERAPY VS READINESS FOR DISCHARGE. UPON EXAM TODAY: See Goal progress below. Lumbar mvmt loss: flex - NIL ext - MOD R SG - MIN L SG - MIN SLS - R - 2 SEC, L 4 SEC WITHOUT UE ASSIST. TANDEM STANCE/WALK - PATIENT IS NOW ABLE TO TANDEM STANCE BUT NOT TANDEM WALK WITHOUT UE ASSIST. Plan Plan Plan: CONTINUE AQUATIC THERAPY 2X'S A WK X 9-10 VISITS FOR PROGRESSION OF GAIT AND BALANCE TRAINING TO HELP PATIENT GET CONFIDENT MOVING OUTSIDE OF HER CENTER OF GRAVITY WITHOUT FEAR OF FALLING. WORK TO INCREASE SINGLE LEG BALANCE TIME, STRIDE LENGTH, HIP ROM AND LE STRENGTH THROUGH NEW ROM GAINED. PATIENT IS INDEP WITH A GYM EX PROGRAM BUT CONTINUE TO WORK ON CORE STRENGTH AND STABILITY. Balance/Gait/Functional tests Balance/Special Test Scores Oswestry Low Back Score: 3 Goals Goals Goal 1:: NORMALIZE GAIT PATTERN ON LEVEL SURFACES WITHOUT C/O BACK PAIN Goal Time Frame: 4-6 Weeks Goal Progress: Progressing Goal 2:: PATIENT WILL REPORT CONFIDENCE IN STANDING AND WALKING TO DO HER NORMAL ADL'S Goal Time Frame: 4-6 Weeks Goal Progress: Progressing Goal 3:: PATIENT WILL BE ABLE TO ASCEND AND DESECEND STEPS RECIPROCALLY WITH ONE HR WITHOUT LIMITATION Goal Time Frame: 4-6 Weeks Goal Progress: Goal Met Goal 4:: PATIENT WILL BE INDEP WITH A HOME, GYM AND/OR WATER EX PROGRAM FOR CONTINUED IMPROVEMENT ONCE FORMAL PHYSICAL THERAPY CONCLUDES. Goal Time Frame: 4-6 Weeks Goal Progress: Progressing Anticipated Interventions Anticipated Interventions Patient/Client Instruction: Educate patient on: Condition, Plan of Care and Risk Factors For the Purpose of:: To improve self management Therapeutic Exercise to Include: Strength training, Balance training, Body mechanics, Postural training, Flexibilty training, Gait and locomotor training, Neuromotor development, In an aquatic setting and Dynamic Lumbar Stabilization For the Purpose of:: To decrease pain, To improve muscle performance and motor function, To increase tolerance to activity/condition/position, To improve ability of physical actions for home/community/work/leisure, To improve gait and locomotor functions, To increase flexibility/ROM, To improve safety with gait and To improve self management Re-Evaluation Ending Re-evaluation ending: Please do not hesitate to contact me at [phone] by phone or if you have questions or concerns regarding this new plan of care! Sincerely, Suni Botello, PT, Cert MDT
--- NOTE | 2024-02-12 13:03 | HP.PTDCSUM ---
Discharge Summary D/C summary: It has been my pleasure to treat JOSHUA MONTEZ referred by Dr. Jailene Aguilar DO, with the diagnosis of ABNORMAL GAIT/HISTORY OF SACRAL FX for a total of 18 visit(s). Discharge Date: Please see the following information for a summary of their discharge status. Subjective Subjective: Patient reports her balance has continued to improve as she has continued aquatic therapy. She states she plans to continue indep water exercise along with some gym exercise at this point. Patient states she is really glad she tried the water and she feels we gave her all the right things in the right order. Pain LBP: Pain Intensity (Out of 10): 0 Overall Improvement % Improvement: 75 Objective Objective/Function: PATIENT WAS SEEN TODAY FOR RE-ASSESSMENT OF PROGRESS TOWARD THE SET PT GOALS AND THE NEED FOR FURTHER PHYSICAL THERAPY VS READINESS FOR DISCHARGE. ALL GOALS APPEAR TO HAVE BEEN MET AND SHE IS APPROPRIATE FOR DISCHARGE. UPON EXAM TODAY: See Goal progress below. Lumbar mvmt loss: flex - NIL ext - MOD R SG - MIN L SG - MIN PATIENT DENIES PAIN WITH LUMBAR ROM TESTING TODAY. SLS - R - 4 SEC, L 6 SEC WITHOUT UE ASSIST. TANDEM STANCE/WALK - PATIENT IS NOW ABLE TO TANDEM STANCE AND TANDEM WALK WITHOUT UE ASSIST. Goals Goal 1:: NORMALIZE GAIT PATTERN ON LEVEL SURFACES WITHOUT C/O BACK PAIN Goal Progress: Goal Met Goal 2:: PATIENT WILL REPORT CONFIDENCE IN STANDING AND WALKING TO DO HER NORMAL ADL'S Goal Progress: Goal Met Goal 3:: PATIENT WILL BE ABLE TO ASCEND AND DESECEND STEPS RECIPROCALLY WITH ONE HR WITHOUT LIMITATION Goal Progress: Goal Met Goal 4:: PATIENT WILL BE INDEP WITH A HOME, GYM AND/OR WATER EX PROGRAM FOR CONTINUED IMPROVEMENT ONCE FORMAL PHYSICAL THERAPY CONCLUDES. Goal Progress: Goal Met Plan Plan: D/C TO INDEP POOL EXERCISE. ALTHOUGH PATIENT ENJOYS AQUATIC THERAPY AND WOULD LIKE TO CONTINUE SHE STATES SHE UNDERSTANDS THAT IT IS UP TO HER TO CONTINUE AT THIS POINT. D/C Information d/c sentence: If there are questions or concerns regarding this patient's physical therapy, please feel free to call me at [phone]. Thank you for the referral of this patient. Sincerely, Suni Botello, PT, Cert MDT Balance/Gait/Functional tests Balance/Special Test Scores Oswestry Low Back Score: 3 Improvement % Improvement: 75
== END 2024-02-12 19:00 | disposition home or self-care (01) ==
LOC: PT 12:30
PROVIDERS: PCP Internal Medicine; Referring Provider Internal Medicine; Visit Provider Internal Medicine
DX: R26.89 Other abnormalities of gait and mobility (principal); Z87.81 Personal history of (healed) traumatic fracture
CPT/HCPCS: 97113; 97162; 97530

== ENCOUNTER → 2024-03-02 | Outpatient (CLI) | payer MEDICARE, BC, SELFPAY | END | disposition home or self-care (01) | PROVIDERS: PCP Internal Medicine; Referring Provider Internal Medicine; Visit Provider Internal Medicine | DX: R00.2 Palpitations (principal) | CPT/HCPCS: 93225; 93226 ==

== ENCOUNTER → 2024-05-04 | Outpatient (CLI) | payer MEDICARE, BC, SELFPAY ==
--- NOTE | 2024-05-04 12:52 | BI_ITS ---
PROCEDURE: SCRN MAMM (CAD)W/GERRY BILAT REASON FOR EXAM: F, Age 79 y/o, aunt with breast cancer. Routine annual mammographic follow-up. TECHNIQUE: Bilateral screening digital breast tomosynthesis with 2D and 3D images. Computer aided detection. COMPARISON: Prior exam(s) dating back to May 30, 2022.. FINDINGS: There are scattered areas of fibroglandular density. Stable benign-appearing bilateral axillary lymph nodes. No suspicious masses, areas of developing architectural distortion, or suspicious calcifications. Stable examination. BI/SCRN MAMM (CAD)W/GERRY BILAT IMPRESSION: BI-RADS 2: BENIGN. RECOMMEND ANNUAL MAMMOGRAPHIC SCREENING. Follow-up code: Routine Follow-up The patient will be notified of the results by letter. Reading Location: [id number]
== END | disposition home or self-care (01) ==
LOC: OPBI 12:51
PROVIDERS: PCP Internal Medicine; Referring Provider Internal Medicine; Visit Provider Internal Medicine
DX: Z12.31 Encounter for screening mammogram for malignant neoplasm of breast (principal); Z80.3 Family history of malignant neoplasm of breast
CPT/HCPCS: 77063; 77067

== ENCOUNTER → 2024-08-10 | Outpatient (CLI) | payer MEDICARE, BC, SELFPAY ==
--- NOTE | 2024-08-10 14:51 | ECHOD_ITS ---
Reason For Study Reason For Study: Arrhythmia Procedure This was a 2D Doppler, Color Flow transthoracic echocardiogram. Exam performed in department. Left Ventricle Normal LV size. Left ventricular systolic function is normal. The left ventricular ejection fraction is 65 %. No regional wall motion abnormalities noted. Right Ventricle Normal RV size. Normal systolic function. Atria Normal left atrium. Normal right atrium. Mitral Valve Normal mitral valve. Tricuspid Valve Normal tricuspid valve. Mild tricuspid valve insufficiency. Pulmonary artery systolic pressure is 28 mmHg. Aortic Valve Trisinus/trileaflet aortic valve. Pulmonic Valve Normal pulmonic valve. Great Vessels Normal aortic root. The pulmonary artery is normal size. Inferior vena cava collapse with respiration. Pericardium/Pleural No pericardial effusion. MMode/2D Measurements & Calculations LVIDd: 4.5 cm IVSd: 1.2 cm Ao root diam: 3.8 cm LVIDs: 2.8 cm LVPWd: 0.91 cm RVDd: 3.7 cm FS: 39.1 % LAV(MOD-bp): 53.5 ml LVAd ap4: 22.5 cm2 SV(MOD-sp4): 44.4 ml LAV(MOD-bp) Indexed: 30.3 ml/m2 LVLd ap4: 6.1 cm SI(MOD-sp4): 25.2 ml/m2 LAV(MOD-sp2): 57.1 ml EDV(MOD-sp4): 67.4 ml LAV(MOD-sp4): 49.0 ml EDV(sp4-el): 70.1 ml LVAs ap4: 11.9 cm2 LVLs ap4: 5.2 cm ESV(MOD-sp4): 22.9 ml ESV(sp4-el): 23.0 ml EF(MOD-sp4): 66.0 % EF(sp4-el): 67.1 % SV(sp4-el): 47.0 ml Ao sinus diam: 3.[address] Junction: 2.7 cm LA dimension(2D): 4.0 cm LA A4 area: 18.7 cm2 RA A4 area: 13.3 cm2 TAPSE: 2.2 cm Time Measurements MV dec time: 0.21 sec Doppler Measurements & Calculations MV E max elie: 71.9 cm/sec Lat Peak E' Elie: 8.2 cm/sec Med Peak E' Elie: 5.9 cm/sec MV A max elie: 88.0 cm/sec E/E' lat: 8.8 E/E' med: 12.2 MV E/A: 0.82 MV V2 max: 107.8 cm/sec MV P1/2t max elie: 82.0 cm/sec Ao V2 max: 151.7 cm/sec MV max P.7 mmHg MV P1/2t: 78.8 msec Ao max P.2 mmHg MV V2 mean: 48.3 cm/sec MV dec slope: 304.6 cm/sec2 Ao V2 mean: 105.4 cm/sec MV mean P.2 mmHg Ao mean P.1 mmHg MV V2 VTI: 32.9 cm MVA(P1/2t): 2.8 cm2 Ao V2 VTI: 35.8 cm AV (velocity ratio): 0.90 LV V1 max: 135.3 cm/sec TR max elie: 246.1 cm/sec LV V1 max P.3 mmHg TR max P.2 mmHg LV V1 mean P.1 mmHg LV V1 mean: 96.3 cm/sec LV V1 VTI: 32.1 cm ECHO/Echo Complete Interpretation Summary Normal LV size. Left ventricular systolic function is normal. The left ventricular ejection fraction is 65 %. Structurally normal valves. Ordering Physician: Chance^Lasha^^^ Referring Physician: Jailene Aguilar M.D. Performed By: Zachary Krishnamurthy RCS
== END | disposition home or self-care (01) ==
LOC: CVS 14:40
PROVIDERS: PCP Internal Medicine; Referring Provider Internal Medicine Cardiovascular Disease; Visit Provider Internal Medicine Cardiovascular Disease
DX: R00.2 Palpitations (principal)
CPT/HCPCS: 93306

== ENCOUNTER → 2024-09-23 | Outpatient (CLI) | payer MEDICARE, BC, SELFPAY ==
[2024-09-23 15:39] LABS: Hematocrit 35.4 % (37-47); Hemoglobin 12.0 g/dL (12.0-15.0); Mean Corp Hgb Conc 33.9 g/dL (32-36); Mean Corpuscular Volume 100.3 fL (81-99); Mean Platelet Vol. 9.8 fl (6.2-12.0); Platelet Count 314 K/mm3 (150-450); RBC Distribution Width CV 13.6 % (11.6-14.6); RBC Distribution Width SD 49.3 fl (35.1-43.9); Red Blood Count 3.53 M/mm3 (4.2-5.4); White Blood Count 9.2 K/mm3 (4.4-11.0)
[2024-09-23 16:06] LABS: PTHIN 43 pg/mL (11-61)
[2024-09-23 16:29] LABS: Albumin, Serum 4.2 g/dL (3.4-4.8); Anion Gap 12 (5-15); BUN 19 mg/dL (4-19); BUN/Creat Ratio 26.9 RATIO (10-20); Calcium,Total 9.3 mg/dL (7.6-11.0); Carbon Dioxide 20.2 mmol/L (21.0-32.0); Chloride 103 mmol/L (98-108); Glucose 90 mg/dL (70-99); Magnesium 2.2 mg/dL (1.5-2.2); Potassium 4.3 mmol/L (3.3-5.1); Vitamin D,25 Hydroxy 66.7 ng/mL (30-100)
[2024-09-23 18:19] LABS: Creatinine, Urine (random) 41.70 mg/dL (28.00-217.00); Protein, Urine (Random) < 6.0 mg/dL (0.0-12.0); Protein:Creat Ratio 135 mg/g CRE (0-200)
== END | disposition home or self-care (01) ==
LOC: MTLAB 11:15
PROVIDERS: PCP Internal Medicine; Referring Provider Internal Medicine Nephrology; Visit Provider Internal Medicine Nephrology
DX: I10 Essential (primary) hypertension (principal); E55.9 Vitamin D deficiency, unspecified
CPT/HCPCS: 36415; 80069; 82306; 82570; 83735; 83970; 84156; 85027

== ENCOUNTER 2025-03-20 18:17 | Emergency (ER) | payer MEDICARE, BC, SELFPAY ==
[2025-03-20 18:17] VITALS: BP 142/82; PULSE 65; RESP 16; TEMP 36.6; O2SAT 100; BMI 31.8
--- NOTE | 2025-03-20 18:53 | ED.VIS.FALL ---
HPI HPI - Fall History of Present Illness Chief Complaint: Fall Informant: patient Occured/Mechanism Occurred: Today and Hours (1) Mechanism/Context: Yes same level fall Pain/Injury Location: Right frontal head Pain Location: head Quality of Pain: Aching Worsened by: Nothing Relieved by: Nothing Associated Symptoms Associated Symptoms: Negative for Parasthesias, Weakness, Loss of function, Inability to ambulate, Loss of consciousness or Amnesia Narrative Narrative: Patient presents after fall today. Patient states she hit her head on frozen ground. Patient states she just slipped and fell. Patient denies any loss of consciousness. Patient hit the right forehead area. Patient admits to some nausea but denies any vomiting. Patient denies any visual changes. Patient denies any paresthesias or weakness. Patient states she does feel off balance. Patient states her pain is aching. Patient states nothing makes it better and nothing makes it worse. [facility] Medical History Osteoporosis Carpal tunnel syndrome Arthritis Urinary incontinence Hypothyroidism DEANN (obstructive sleep apnea) Renal artery stenosis Palpitations Hypotensive syncope History of angioedema MDD (major depressive disorder) GERD (gastroesophageal reflux disease) Hives Hearing problem Emotional problems Cataracts, bilateral Bone fracture Alcohol abuse Bulging disc Sacral fracture Back pain Limb weakness HTN (hypertension) Home Medications ?Medication ?Instructions ?Recorded ?Last Taken ?Type dexlansoprazole 60 mg 60 mg PO DAILY 05/02/23 Unknown History capsule,biphase delayed release levothyroxine 25 mcg tablet 25 mcg PO DAILY 05/02/23 Unknown History (Synthroid) spironolactone 25 mg tablet 25 mg PO DAILY 05/02/23 Unknown History cholecalciferol (vitamin D3) 25 3,000 unit PO DAILY 07/09/23 Unknown History mcg (1,000 unit) capsule multivitamin with minerals-folic tab PO 07/09/23 Unknown History acid 0.4 mg tablet (One-A-Day Women's 50 Plus) verapamil 360 mg 24 hr 360 mg PO QDAY 07/09/23 Unknown History capsule,extended release denosumab 60 mg/mL subcutaneous 60 mg subcut [id number] 12/02/23 Unknown History syringe (Prolia) calcium carbonate 400 mg PO QDAY 07/15/24 Unknown History lactobacillus combination no.9 4 4,000 mmu cells PO QDAY 07/15/24 Unknown History billion cell capsule (Adult 50 Plus Probiotic) turmeric 400 mg capsule mg PO 07/15/24 Unknown History bupropion HCl 450 mg 24 hr tablet, 450 mg PO DAILY #90 tabs 11/15/24 Unknown Rx extended release vilazodone 20 mg tablet 20 mg PO DAILY #90 tabs 11/15/24 Unknown Rx losartan 100 1 tab PO DAILY #30 tabs 02/11/25 Unknown Rx mg-hydrochlorothiazide 25 mg tablet mecobalamin (vitamin B12) 1,000 1,000 mcg sublingual QDAY 02/15/25 Unknown History mcg disintegrating tablet,sublingual melatonin 5 mg capsule mg PO 02/15/25 Unknown History Allergy/AdvReac Type Severity Reaction Status Date / Time Penicillins Allergy Rash Verified 03/20/25 18:17 Family History (Updated 02/15/25 @ 13:47 by Wade Salas) Mother Cancer lung Alcohol abuse Father Alcohol abuse Pancreatitis Diabetes Sister Multiple sclerosis Grandfather Heart disease Cancer throat CVA (cerebral vascular accident) Grandmother Hypertension Other Depression Mental disorder Osteoporosis Psychiatric care Surgical History History of surgical procedure on mouth History of appendectomy History of tubal ligation History of cataract surgery Social History Smoking Status: Never smoker alcohol intake: former year quit: 2023 substance use type: does not use caffeine: Yes what type of physical activity do you participate in: other details: strengthening core 1-3x week do you feel safe at home: Yes ROS ROS ED Constitutional Constitutional ED: Denies chills or fever(s) Eyes Eyes: Denies blurry vision or change in vision ENT ENT ED: Denies rhinorrhea or sore throat Cardiovascular Cardiovascular: Denies chest pain or palpitations Respiratory/Chest Respiratory/Chest: Denies cough or dyspnea Gastrointestinal Gastrointestinal: Reports nausea; Denies vomiting Genitourinary Genitourinary ED: Denies dysuria or hematuria Musculoskeletal Musculoskeletal: Denies back pain or neck pain Integumentary Denies abscess or rash Neurologic Neurologic: Reports headache(s); Denies weakness Allergic/Immunologic Allergic/Immunologic ED: Denies mouth swelling or urticaria EXAM Physical Exam Const Vital Signs: 03/20/25 18:17 Temperature 97.8 F Temperature Source Oral Pulse Rate 65 Respiratory Rate 16 Blood Pressure 142/82 H Blood Pressure Mean 102 Pulse Ox 100 Oxygen Delivery Method Room Air Positive well nourished and well developed General Appearance ED: well developed and NAD HEENT Reports normocephalic HEENT Narrative: There is mild tenderness over the right frontal area. There is no bony crepitance or step-off. There is no edema or ecchymosis noted. There are no lacerations noted. Neck full ROM and supple Neuro oriented x3, CN's II-XII intact bilaterally, moves all extremities, no focal motor deficits and no sensory deficits noted Loc Coma Scale: document GCS findings Spontaneous Obeys Commands Oriented 15 Sensorium / Orientation: alert Motor Exam: strength 5/5 throughout Psych mental status grossly normal and thought process normal MDM MDM MDM Narrative Medical decision making narrative: Differential diagnosis includes intracranial bleeding, fracture, and closed head injury. CT scan of the brain will be obtained to assess for intracranial bleeding. Radiography Diagnostic Testing: CT scan of the brain was obtained. There is no acute intracranial abnormality. This was interpreted by the radiologist. I also independently reviewed the images and did not see any evidence of intracranial bleeding. Treatment and Re-Evaluation Narrative: Patient was advised of her findings. Patient was instructed to drink plenty of fluids. Patient was instructed take Tylenol or ibuprofen as needed for pain. Patient was instructed to follow-up with her primary care physician in 5 to 7 days. Patient understood and was agreeable with the plan. All questions were answered. Discharge Plan Triage Chief Complaint: Fall ED Provider: Bryant Lilly Dx/Rx/DC Orders Clinical Impression: Closed head injury, Fall Instructions: ED Head Injury (Adult) Prescriptions: No Action cholecalciferol (vitamin D3) 25 mcg (1,000 unit) capsule 3,000 unit PO DAILY verapamil 360 mg capsule,ext rel. pellets 24 hr 360 mg PO QDAY multivit with min-folic acid [One-A-Day Women's 50 Plus] 0.4 mg tablet PO Prolia 60 mg/mL syringe 60 mg subcut [id number] Adult 50 Plus Probiotic 4 billion cell capsule 4,000 mmu cells PO QDAY Rx Instructions: administer with a meal turmeric 400 mg capsule PO calcium carbonate 400 mg calcium (1,000 mg) tablet,chewable 400 mg PO QDAY bupropion HCl 450 mg tablet extended release 24 hr 450 mg PO DAILY Qty: 90 1RF vilazodone 20 mg tablet 20 mg PO DAILY Qty: 90 1RF Rx Instructions: must administer with a meal/food melatonin 5 mg capsule PO mecobalamin (vitamin B12) 1,000 mcg tablet,disintegrating 1,000 mcg sublingual QDAY Rx Instructions: place tablet under tongue and allow to dissolve for at least30 secs before swallowing dexlansoprazole 60 mg capsule,biphase delayed releas 60 mg PO DAILY levothyroxine [Synthroid] 25 mcg tablet 25 mcg PO DAILY Patient Comments: TAKE 1 TABLET BY MOUTH EVERY DAY spironolactone 25 mg tablet 25 mg PO DAILY Patient Comments: TAKE 1 TABLET BY MOUTH EVERY DAY FOR 30 DAYS losartan-hydrochlorothiazide 100-25 mg tablet 1 tab PO DAILY Qty: 30 3RF Primary Care Provider: Jailene Aguilar Referrals: Jailene Aguilar DO [Primary Care Provider, Internal Medicine] - 5-7 Days Print Language: [place] Disposition Disposition: Home, Self Care
--- NOTE | 2025-03-20 18:54 | CT_ITS ---
PROCEDURE: BRAIN/HEAD WITHOUT CONTRAST 03/20/2025 REASON FOR EXAM: HEAD INJURY TECHNIQUE: Procedure Code: CTBR Modality: CT Procedure: BRAIN/HEAD WITHOUT CONTRAST Coronal and Sagittal reconstruction series were provided. One or more dose reduction techniques were used (e.g., Automated exposure control, adjustment of the mA and/or kV according to patient size, use of iterative reconstruction technique. RADIATION DOSE SUMMARY: DLP: 779.24 mGycm FINDINGS: Brain: Low density in the periventricular white matter suggests mild chronic small vessel ischemic changes. CSF Spaces: Mild generalized cerebral atrophy Sinuses/Mastoids: Clear at visualized levels Bones: No acute fractures. CT/Brain/Head without Contrast IMPRESSION: No acute intracranial abnormalities. No acute fractures. Reading Location: [id number]
--- OUTSIDE RECORDS SUMMARY | 2025-03-20 19:08 | XMS RPT_ITS | CCD ---
Author Organization [facility] Care Team Providers [facility] Name Role Phone Jailene Michaels Unavailable Kang Quintana Unavailable Yolanda Shah Unavailable Unavailable Unavailable Unavailable Gertrude Driscoll Unavailable Shirlene Madera Unavailable Zeferino Davis Unavailable Gravius, Emily Unavailable Unavailable Jailene Michaels Unavailable Kang Quintana Unavailable Gertrude Driscoll Unavailable Shirlene Madera Unavailable Zeferino Davis Unavailable Gravius, Emily Unavailable Unavailable Unavailable Unavailable Ash Welch Unavailable Dilan Strong Unavailable Unavailable Yolanda Shah Unavailable Unavailable Papo Dorado Unavailable Gravius, Emily Unavailable Unavailable Lorna Marshall Unavailable Unavailable [facility], [place] [facility] Unavailable Michele Lisa Unavailable Lucas Buenrostro Unavailable Dilan Strong Unavailable Unavailable Becka Velasquez Unavailable Patricia Beal Unavailable Unavailable Becka Danielson Unavailable Shirlene Madera Unavailable Krista Botello Unavailable Unavailable Estefania Johnson Unavailable Unavailable Tanphaichitr - Boyd, Cali Unavailable Jailene Michaels DO Unavailable Yuri PEDRAZA, Ash Butler Unavailable Becka Danielson Unavailable [facility], [place] [facility] Unavailable Michele Lisa Unavailable Porter PEDRAZA, Lucas Griffith Unavailable Tanphaichitr - Boyd, Cali Unavailable Dr. Kang Quintana Unavailable Gertrude Driscoll Unavailable Shirlene Madera Unavailable Dr. Zeferino Davis Unavailable Papo Dorado Unavailable Cross SENIOR PRINCIPAL SOFTWARE ENGINEER, Krista Unavailable Unavailable Gravius STONEWORKING BELT SANDER, Emily Unavailable Unavailable Slarb SENIOR PRINCIPAL SOFTWARE ENGINEER, Estefania Unavailable Unavailable Unavailable Unavailable Josias Schreiber Unavailable Jailene Michaels DO Unavailable Ashley Marie MA Unavailable Unavailable Emigdio GONZALEZ, Patricia Unavailable Unavailable Dr. Jailene Michaels Primary Care Provider Dr. Jailene Michaels Referring Provider Sammie HIDE AND SKIN COLERER, HIDE AND SKIN COLERER-C Gloria Attending Provider Felix STONEWORKING BELT SANDER, Kayela Unavailable Unavailable Gissel Mello Unavailable [facility] LINDA, Mary Unavailable Unavailable Jailene Michaels DO Attending Unavailable Jailene Michaels DO Consulting Unavailable Jailene Michaels DO Referring Unavailable [facility], [facility] Unavailable Dr. Jailene Michaels Primary Care Provider Dr. Giovani López Attending Provider Becka Suazo Unavailable SeeBryant song DO Unavailable Jailene Michaels Primary Care Unavailable Xenia, Jailene Attending Unavailable Xenia, Jailene Referring Unavailable Xenia, Jailene Attending Unavailable Xenia, Jailene Referring Unavailable Xenia, Jailene Primary Care Unavailable Xenia, Jailene Attending Unavailable Xenia, Jailene Referring Unavailable Xenia, Jailene Primary Care Unavailable Chance, Lasha Attending Unavailable Chance, Lasha Referring Unavailable Xenia, Jailene Primary Care Unavailable Tanphaichitr, Natthavat Attending Unavaila ble Tanphaichitr, Natthavat Referring Unavaila ble Xenia, Jailene Primary Care Unavailable Xenia, Jailene Primary Care Unavailable Rene, Magnolia Attending Unavailable Bryant Wang Attending Unavailable Xenia, Jailene Primary Care Unavailable Chance, Lasha Attending Unavailable Xenia, Jailene Referring Unavailable Xenia, Jailene Primary Care Unavailable Rene, Magnolia Attending Unavailable Xenia, Jailene Primary Care Unavailable Xenia, Jailene Primary Care Unavailable Jesse Walsh Attending Unavailabl e Xenia, Jailene Referring Unavailable Bryant Wang Attending Unavailable Xenia, Jailene Primary Care Unavailable Xenia, Jailene Primary Care Unavailable Gil Jackson Attending Unavailable Xenia, Jailene Referring Unavailable Xenia, Jailene Primary Care Unavailable Rene, Giovani Attending Unavailable Xenia, Jailene [facility] Care Unavailable Xenia, Jailene Attending Unavailable Xenia, Jailene Referring Unavailable XENIA, JAILENE [facility] Unavailab le RYAN, GENE A Attending Unavailable XENIAJAILENE [facility] Unavailab le RYAN, GENE A Attending Unavailable XENIAJAILENE [facility] Unavailab le RYAN, GENE A Attending Unavailable XENIAJAILENE [facility] Care Unavailab le RYAN, GENE A Attending Unavailable RYAN, GENE A Attending Unavailable XENIAJAILENE [facility] Care Unavailab le SELF Referring Unavailable RYAN, GENE A Attending Unavailable XENIAJAILENE [facility] Unavailab le XENIA, JAILENE ROTHMAN [facility] Care Unavailab le RYAN, GENE A Attending Unavailable RYAN, GENE A Attending Unavailable XENIAJAILENE [facility] Care Unavailab le RYAN, GENE A Attending Unavailable XENIAJAILENE [facility] Care Unavailab le RYAN, GENE A Attending Unavailable XENIAJAILENE [facility] Care Unavailab le XENIAJAILENE [facility] Care Unavailab le RYAN, GENE A Attending Unavailable XENIA, JAILENE LORNA Primary Care UnavailHERMELINDO Everett Attending Unavailable JAILENE MICHAELS Primary Care Unavailab HERMELINDO Ward Referring Unavailable HERMELINDO DAVIS Attending Unavailable JAILENE MICHAELS Primary Care Unavailab HERMELINDO Ward Attending Unavailable HERMELINDO DAVIS Referring Unavailable Allergies Allergy Classification Reported Allergen(s) Allergy Type Date of Onset Reaction(s) Facility Penicillins (antibiotic) (7 sources) Penicillins; Translations: [Penicillins] Drug Allergy [facility] Work Phone: Comment on above: hives (20 sources) Penicillins; Translations: [Penicillins] allergy to substance 2 Unknown [facility] Work Phone: Comment on above: hives Medications Current Medications Medication Drug Class(es) Dates Sig (Normalized) Sig (Original) calcium carbonate 1250 mg oral tablet (20 sources) Start: 02-04-2018 take 1 tablet by mouth twice daily Calcium Carbonate (Calcium 500) 500 mg calcium (1,250 mg) tablet Active 500 MG PO TWICE A DAY February 04, 2018 1:00am take 1 tablet by mouth once kathryn y Calcium Carbonate 1250 (500 Ca) MG Oral Tablet 1 daily (1250 (500 Ca) MG) Active take 1 tablet by mouth once kathryn y Calcium Carbonate 1250 (500 Ca) MG Oral Tablet 1 daily (1250 (500 Ca) MG) Active cholecalciferol 0.025 mg oral capsule (20 sources) Vitamin D Start: 02-04-2018 take 1000 [IU] by mouth once daily Cholecalciferol (Vitamin D3) Active 1000 UNIT PO DAILY February 04, 2018 1:00am take 1 tablet by mouth once kathryn y Vitamin D3 5000 UNIT Oral Tablet 1 qd (5000 UNIT) Active lyrexdo-impjhzipn-dlimos-RNA -[id number] 250 mg-250 mg-120 mg tab (4 sources) Start: 02-04-2018 eyfiqcy-vrvkyodbh-oczgpu-RNA -[id number]-[id number] 250 mg-250 mg-120 mg tab Active TABLET PO February 04, 2018 1:00am Start: 02-04-2018 choline-glutam ccn-yruxem-IIO-wjhxq-jbsj-485re 250 mg-250 mg- 120 mg tab Active TABLET PO February 04, 2018 12:00am Completed/Discontinued Medications Medication Drug Class(es) Dates Sig [...] : 31-Dec-2021 Inactive Comments: dispense one pack Start: 08-24-2018 End: 01-22-2019 take 1 tablet by mouth once daily Zithromax Z-Christiano 250 MG Oral Tablet tad Tablet qd for 0 days Quantity: 1 {Package} Refills: 0 Ordered: 22-Jan-2019 Emily Zuniga CMA Start : 24-Aug-2018 End : 22-Jan-2019 Inactive Comment on above: dispense one pack bifidobacterium infantis 4 mg oral capsule (20 sources) take 1 capsule by mouth once daily Align 4 MG Oral Capsule 1 qd (4 MG) Active 24 hr buPROPion hydrochloride 450 mg extended release oral tablet (20 sources) Aminoketone Start: take 1 tablet by mouth once daily buPROPion HCL 450 mg oral Tablet, Extended Release 24 hr 1 Tablet qd for 90 days Quantity: 90 {Tablet} Refills: 3 Ordered: 04-Dec-2022 Jailene Michaels DO, DO, Kathleen Start : 04-Dec-2022 Active Start: 10-08-2022 take 1 tablet by cindi th once daily buPROPion HCL 450 mg oral Tablet, Extended Release 24 hr 1 Tablet qd for 90 days Quantity: 90 {Tablet} Refills: 3 Ordered: 08-Oct-2022 Jailene Michaels DO, DO, Kathleen Start : 08-Oct-2022 Active Start: 09-28-2021 take 1 tablet by cindi th once daily buPROPion HCl ER (XL) 450 MG Oral Tablet Extended Release 24 Hour 1 Tablet qd for 90 days Quantity: 90 {Tablet} Refills: 3 Ordered: 28-Sep-2021 Jailene Michaels DO, DO, Kathleen Start : 28-Sep-2021 Active Start: 08-06-2021 take 1 tablet by cindi th once daily buPROPion HCl ER (XL) 450 MG Oral Tablet Extended Release 24 Hour 1 Tablet qd for 90 days Quantity: 90 {Tablet} Refills: 3 Ordered: 06-Aug-2021 Jailene Michaels DO, DO, Kathleen Start : 06-Aug-2021 Active Start: 06-09-2019 take 1 tablet by cindi th once daily buPROPion HCl ER (XL) 450 MG Oral Tablet Extended Release 24 Hour 1 Tablet qd for 90 days Quantity: 90 {Tablet} Refills: 3 Ordered: 24-May-2020 Jailene Michaels DO, DO, Kathleen Start : 24-May-2020 Active Start: 02-04-2018 take 75 mg by mouth twice kathryn y Bupropion Hcl Active 75 MG PO TWICE A DAY February 04, 2018 1:00am take 1 tablet by cindi th every twenty-four hours BuPROPion HCl ER (XL) 450 MG Oral Tablet Extended Release 24 Hour 1 qd (450 MG) Active chondroitin sulfates 400 mg / glucosamine hydrochloride 500 mg oral capsule (20 sources) take 1 capsule by mo uth once daily Glucosamine Chondr Complex 500-400 MG Oral Capsule 1 qd (500-400 MG) Inactive take 1 capsule by mouth once lesa ly Glucosamine Chondr Complex 500-400 MG Oral Capsule 1 qd (500-400 MG) Inactive take 1 capsule by mouth once lesa ly Glucosamine Chondr Complex 500-400 MG Oral Capsule 1 qd (500-400 MG) Active ciprofloxacin 500 mg oral tablet (20 sources) Quinolone Antimicrobial Start: 10-11-2019 End: 10-18-2019 take 1 tablet by mouth twice daily Ciprofloxacin HCl 500 MG Oral Tablet 1 (one) Tablet bid for 7 days Quantity: 14 {Tablet} Refills: 0 Ordered: 11-Oct-2019 Becka Velasquez Start : 11-Oct-2019 End : 18-Oct-2019 Inactive Citracal Slow Release (2 sources) take 1 tablet by mouth once daily Citracal Slow Release 600-40-500 MG-MG-UNIT Oral Tablet Extended Release 24 Hour 1 qd (600-40-500 MG-MG-UNIT) Active Citracal Slow Release 600-40-500 MG-MG-UNIT Oral Tablet Extended Release 24 Hour (20 sources) take 40-500 mg by mouth once daily Citracal Slow Release 600-40-500 MG-MG-UNIT Oral Tablet Extended Release 24 Hour 1 qd (600-40-500 MG-MG-UNIT) Inactive take 40-500 mg by mouth once lesa ly Citracal Slow Release 600-40-500 MG-MG-UNIT Oral Tablet Extended Release 24 Hour 1 qd (600-40-500 MG-MG-UNIT) Active clotrimazole 10 mg oral lozenge (20 sources) Azole Antifungal Start: 03-26-2019 End: 04-05-2019 Clotrimazole 10 MG Mouth/Throat Shira 1 (one) Shira 5x daily for 10 days Quantity: 50 {Shira} Refills: 0 Ordered: 26-Mar-2019 Becka Velasquez Start : 26-Mar-2019 End : 05-Apr-2019 Inactive dexlansoprazole 60 mg delayed release oral capsule (20 sources) Proton Pump Inhibitor Start: 10-18-2022 take 1 capsule by mouth once daily Dexilant 60 mg oral capsule,delayed release,biphasic 1 Capsule qd for 90 days Quantity: 90 {Capsule} Refills: 3 Ordered: 18-Oct-2022 Jailene Michaels DO, DO, Kathleen Start : 18-Oct-2022 Active Comments: Mail order. Start: 09-03-2021 take 1 capsule by mo [facility] once daily Dexilant 60 MG Oral Capsule Delayed Release 1 Capsule qd for 90 days Quantity: 90 {Capsule} Refills: 3 Ordered: 03-Sep-2021 Jailene Michaels DO, DO, Kathleen Start : 03-Sep-2021 Active Comments: Mail order. Start: 06-20-2020 take 1 capsule by mo uth once daily Dexilant 60 MG Oral Capsule Delayed Release 1 Capsule qd for 90 days Quantity: 90 {Capsule} Refills: 3 Ordered: 29-Jun-2020 Jailene Michaels DO, DO, Kathleen Start : 29-Jun-2020 Active Comments: Mail order. Start: 12-08-2019 take 1 capsule by mo ut once daily Dexilant 60 MG Oral Capsule Delayed Release 1 Capsule qd for 90 days Quantity: 90 {Capsule} Refills: 1 Ordered: 08-Dec-2019 Emily Zuniga CMA Start : 08-Dec-2019 Active Comments: Mail order. Start: 06-28-2019 take 1 capsule by mo uth once daily Dexilant 60 MG Oral Capsule Delayed Release 1 Capsule qd for 90 days Quantity: 90 {Capsule} Refills: 1 Ordered: 28-Jun-2019 Xenia GORDONJailene XeniaEveline greene DOeen Start : 28-Jun-2019 Active Comments: Mail order. Start: 05-14-2018 take 1 capsule by mo uth once daily Dexilant 60 MG Oral Capsule Delayed Release 1 Capsule qd for 0 days Quantity: 30 {Capsule} Refills: 3 Ordered: 14-May-2018 Danna Lilly DO Start : 14-May-2018 Active Start: 03-20-2018 take 1 capsule by mo uth once daily Dexilant 60 MG Oral Capsule Delayed Release 1 Capsule qd for 0 days Quantity: 30 {Capsule} Refills: 3 Ordered: 20-Mar-2018 Xenia Jailene XeniaJailene greene DO Start : 20-Mar-2018 Active Start: 02-04-2018 take 1 capsule by mo uth once daily Dexlansoprazole (Dexilant) 30 mg capsule,biphase delayed releas Active 30 MG PO DAILY February 04, 2018 1:00am Comment on above: Mail order. Focus (20 sources) Focus Active Focused Mind (2 sources) take 1 capsule by mo uth once daily Focused Mind Oral Capsule 1 qd Active Focused Mind Oral Capsule (20 sources) take 1 capsule by mo uth once daily Focused Mind Oral Capsule 1 qd Inactive take 1 capsule by mouth once lesa ly Focused Mind Oral Capsule 1 qd Active Glucosamine Chondr Complex 500-400 MG Oral Capsule (20 sources) take 1 capsule by mo uth once daily Glucosamine Chondr Complex 500-400 MG Oral Capsule 1 qd (500-400 MG) Inactive Hair Skin Nails (2 sources) take 1 capsule by mo uth once daily Hair Skin Nails Oral Capsule 1 qd Active Hair Skin Nails Oral Capsule (20 sources) take 1 capsule by mo uth once daily Hair Skin Nails Oral Capsule 1 qd Inactive take 1 capsule by mouth once lesa ly Hair Skin Nails Oral Capsule 1 qd Active hydrALAZINE hydrochloride 25 mg oral tablet (20 sources) Arteriolar Vasodilator Start: 07-20-2020 End: 08-10-2020 take 1 tablet by mouth once daily hydrALAZINE HCl 25 MG Oral Tablet 1 (one) Tablet qd for 0 days Quantity: 30 {Tablet} Refills: 0 Ordered: 10-Aug-2020 Jailene Michaels DO, DO, Kathleen Start : 10-Aug-2020 End : 10-Aug-2020 Discontinued hydroCHLOROthiazide 25 mg oral tablet (20 sources) Thiazide Diuretic Start: 06-07-2020 take 1 tablet by mouth once daily in the morning hydroCHLOROthiazide 25 MG Oral Tablet 1 (one) Tablet qam for 0 days Quantity: 90 {Tablet} Refills: 3 Ordered: 29-Jun-2020 Jailene Michaels DO, DO, Kathleen Start : 29-Jun-2020 Active levothyroxine sodium 0.025 mg oral tablet (20 sources) l-Thyroxine Start: 02-26-2022 take 1 tablet by mouth once daily Synthroid 25 mcg oral tablet 1 (one) Tablet qd for 90 days Quantity: 90 {Tablet} Refills: 3 Ordered: 26-Feb-2022 Jailene Michaels DO, DO, Kathleen Start : 26-Feb-2022 Active Dispense as Written Start: 01-31-2021 take 1 tablet by cindi th once daily Synthroid 25 MCG Oral Tablet 1 (one) Tablet qd for 90 days Quantity: 90 {Tablet} Refills: 3 Ordered: 31-Jan-2021 Jailene Michaels DO, DO, Kathleen Start : 31-Jan-2021 Active Dispense as Written Start: 03-20-2020 take 1 tablet by cindi th once daily Synthroid 25 MCG Oral Tablet 1 (one) Tablet qd for 90 days Quantity: 90 {Tablet} Refills: 3 Ordered: 20-Mar-2020 Xenia DOJailene DO, Kathleen Start : 20-Mar-2020 Active Dispense as Written Start: 12-21-2019 take 1 tablet by cindi th once daily Synthroid 25 MCG Oral Tablet 1 (one) Tablet qd for 30 days Quantity: 30 {Tablet} Refills: 3 Ordered: 21-Dec-2019 Xenia DOJailene DO, Kathleen Start : 21-Dec-2019 Active Dispense as Written Start: 09-27-2019 take 1 tablet by cindi th once daily Synthroid 25 MCG Oral Tablet 1 (one) Tablet qd for 30 days Quantity: 30 {Tablet} Refills: 3 Ordered: 27-Sep-2019 Jailene Michaels DO, DO, Kathleen Start : 27-Sep-2019 Active Dispense as Written losartan potassium 100 mg oral tablet (20 sources) Angiotensin 2 Receptor Néstor Start: 06-09-2019 take 1 tablet by mouth once daily Losartan Potassium 50 MG Oral Tablet 1 Tablet qd for 0 days Quantity: 90 {Tablet} Refills: 4 Ordered: 09-Jun-2019 Emily Zuniga CMA Start : 09-Jun-2019 Active Start: 02-04-2018 take 1 tablet by cindi th once daily Losartan Potassium 100 MG Oral Tablet 1 Tablet qd for 0 days Quantity: 90 {Tablet} Refills: 4 Ordered: 29-Jun-2020 Jailene Michaels DO, DO, Kathleen Start : 29-Jun-2020 Active take 1 tablet by cindi th once daily Losartan Potassium 50 MG Oral Tablet 1 qd (50 MG) Active meclizine hydrochloride 25 mg oral tablet (20 sources) Antiemetic Start: 08-31-2020 End: 05-23-2022 take 1 tablet by mouth every eight hours as needed meclizine 25 mg oral tablet 1 (one) Tablet q8 hr prn dizzy for 0 days Quantity: 20 {Tablet} Refills: 0 Ordered: 23-May-2022 Mary Arreola CMA Start : 31-Aug-2020 End : 23-May-2022 Inactive meloxicam 15 mg oral tablet (20 sources) Nonsteroidal Anti-inflammatory Drug Start: 03-23-2018 End: 07-13-2018 take 1 tablet by mouth once daily Meloxicam 15 MG Oral Tablet 1 (one) Tablet qd for 30 days Quantity: 30 {Tablet} Refills: 4 Ordered: 13-Jul-2018 Yolanda Shah RN Start : 23-Mar-2018 End : 13-Jul-2018 Inactive spironolactone 25 mg oral tablet (20 sources) Aldosterone Antagonist take 1 tablet by mouth once daily Spironolactone 25 MG Oral Tablet 1 tab daily (25 MG) Active Standard Process (20 sources) Standard Process [facility] Active Comments: tumeric and vitamin supplements Comment on above: tumeric and vitamin supplements tiZANidine 4 mg oral tablet (20 sources) Central alpha-2 Adrenergic Agonist Start: 06-09-2019 End: 10-11-2019 take 1 tablet by mouth twice daily tiZANidine HCl 4 MG Oral Tablet 1 (one) Tablet bid for 0 days Quantity: 30 {Tablet} Refills: 0 Ordered: 11-Oct-2019 Dilan Abad LPN Start : 09-Jun-2019 End : 11-Oct-2019 Inactive valACYclovir 500 mg oral tablet (20 sources) Herpesvirus Nucleoside Analog DNA Polymerase Inhibitor, Herpes Simplex Virus Nucleoside Analog DNA Polymerase Inhibitor, Herpes Zoster Virus Nucleoside Analog DNA Polymerase Inhibitor Start: 06-15-2020 take 1 tablet by mouth once daily as needed Valtrex 500 mg oral tablet 1 (one) Tablet 1 tab daily prn for 0 days Quantity: 15 {Tablet} Refills: 0 Ordered: 04-Dec-2022 Jailene Michaels DO, DO, Kathleen Start : 04-Dec-2022 Active 24 hr verapamil hydrochloride 180 mg extended release oral capsule (20 sources) Calcium Channel Néstor Start: 10-21-2022 take 1 capsule by mouth twice daily verapamiL 180 mg oral Capsule, Extended Release Pellets 24 hr 1 Capsule bid for 90 days Quantity: 180 {Capsule} Refills: 3 Ordered: 21-Oct-2022 Jailene Michaels DO, DO, Kathleen Start : 21-Oct-2022 Active Comments: pts actually taking 180mg bid due to avail at [facility]. Start: 07-25-2021 take 1 capsule by mo [facility] twice daily Verapamil HCl ER 180 MG Oral Capsule Extended Release 24 Hour 1 Capsule bid for 90 days Quantity: 180 {Capsule} Refills: 3 Ordered: 25-Jul-2021 Jailene Michaels DO, DO, Kathleen Start : 25-Jul-2021 Active Comments: pts actually taking 180mg bid due to avail at [facility]. Start: 12-11-2020 take 1 capsule by mo ut once daily Verapamil HCl ER 360 MG Oral Capsule Extended Release 24 Hour 1 Capsule qd for 90 days Quantity: 90 {Capsule} Refills: 3 Ordered: 11-Dec-2020 Jailene Michaels DO, DO, Kathleen Start : 11-Dec-2020 Active Comments: pts actually taking 180mg bid due to avail at [facility]. Start: 06-29-2020 take 1 capsule by mo ut once daily Verapamil HCl ER 360 MG Oral Capsule Extended Release 24 Hour 1 Capsule qd for 90 days Quantity: 90 {Capsule} Refills: 3 Ordered: 20-Jul-2020 Jailene Michaels DO, DO, Kathleen Start : 20-Jul-2020 Active Start: 06-15-2020 take 1 capsule by mo uth once daily Verapamil HCl ER 240 MG Oral Capsule Extended Release 24 Hour 1 Capsule qd for 90 days Quantity: 90 {Capsule} Refills: 3 Ordered: 15-Jun-2020 Jailene Michaels DO, DO, Kathleen Start : 15-Jun-2020 Active Start: 06-09-2019 take 1 capsule by mo uth once daily Verapamil HCl ER 180 MG Oral Capsule Extended Release 24 Hour 1 Capsule qd for 90 days Quantity: 90 {Capsule} Refills: 3 Ordered: 09-Jun-2019 Emily Zuniga CMA Start : 09-Jun-2019 Active Start: 07-03-2018 take 1 capsule by mo uth once daily Verapamil HCl 180 MG Oral Capsule Extended Release 1 qd for 0 days Refills: 0 Ordered: 03-Jul-2018 Jailene Michaels DO, DO, Kathleen Start : 03-Jul-2018 Active Start: 02-04-2018 take 1 tablet by cindi twice daily verapamil 40 mg tablet Active 40 MG PO TWICE A DAY February 04, 2018 1:00am take 1 capsule by mo uth once daily Verapamil HCl 180 MG Oral Capsule Extended Release 1 qd (180 MG) Active Comment on above: pts actually taking 180mg bid due to avail at [facility]. Problems Active Problems Problem Classification Problem Date Documented Date Episodic/Chronic Adjustment disorders (1 source) Adjustment disorder with mixed anxiety and depressed mood; Translations: [Adjustment disorder with mixed anxiety and depressed mood] Onset: 03-30-2024 Chronic Administrative/social admission (20 sources) Patient encounter status; Translations: [Nutritional counseling] 06-29-2020 Episodic Anxiety disorders (1 source) Low self-esteem; Translations: [Low self-esteem] Onset: 03-30-2024 Chronic Blindness and vision defects (20 sources) Sees flashes; Translations: [Flashing lights] Resolved: 07-21-2019 08-24-2018 Episodic Chronic obstructive pulmonary disease and bronchiectasis (20 sources) Bronchitis; Translations: [Bronchitis] 08-24-2018 Episodic E Codes: Fall (20 sources) Accidental fall ; Translations: [Accidental fall, initial encounter] Resolved: 06-09-2019 10-11-2019 Episodic Esophageal disorders (20 sources) Hutton's esophagus; Translations: [Hutton's esophagus] 03-20-2018 Chronic Comment on above: EGD 02/07 Essential hypertension (20 sources) Hypertensive disorder; Translations: [Hypertension] Onset: 09-30-2024 03-20-2018 Chronic Comment on above: stress test 2017 nor mal for ambiguous ekg Headache; including migraine (20 sources) Headache; Translations: [Headache] Resolved: 05-23-2022 07-20-2020 Episodic Comment on above: worry and stress and weather front with frontal sinus ?-- since went away today wont image yet Immunizations and screening for infectious disease (20 sources) Requires vaccination; Translations: [Need for pneumococcal vaccination] Resolved: 05-23-2022 06-29-2020 Episodic Mood disorders (20 sources) Depressive disorder; Translations: [Depression, controlled] Onset: 03-30-2024 03-20-2018 Chronic Mycoses (20 sources) Candidiasis of mouth; Translations: [Thrush] Resolved: 06-09-2019 10-11-2019 Episodic Nutritional deficiencies (20 sources) Vitamin D deficiency; Translations: [Vitamin D deficiency] 03-20-2018 Chronic Other and unspecified benign neoplasm (20 sources) History of polyp of colon; Translations: [History of colon polyps] 04-02-2018 Episodic Comment on above: last scope 2017- Other bone disease and musculoskeletal deformities (20 sources) Osteopenia; Translations: [Osteopenia] 01-22-2019 Episodic Other connective tissue disease (20 sources) Pain in left foot; Translations: [Foot pain, left] Resolved: 08-12-2022 05-17-2022 Episodic Other ear and sense organ disorders (20 sources) Impacted cerumen in right ear; Translations: [Impacted cerumen of right ear] 06-29-2020 Episodic Other ear and sense organ disorders (20 sources) Hearing loss of right ear; Translations: [Hearing loss due to cerumen impaction, right] Resolved: 05-23-2022 08-31-2020 Episodic Other injuries and conditions due to external causes (20 sources) Puncture wound - injury; Translations: [Puncture wound] 10-11-2019 Episodic Comment on above: left foot puncture f rom nail Other injuries and conditions due to external causes (20 sources) Chilblains; Translations: [Chilblains, initial encounter] 06-11-2021 Episodic Comment on above: secondary to her Ray vonda -- recommend bag b kaylah at this time to promote skin healing Other lower respiratory disease (20 sources) Cough; Translations: [Cough] Resolved: 06-09-2019 08-24-2018 Episodic Other nervous system disorders (20 sources) Impairment of balance; Translations: [Unstable balance] 05-23-2022 Episodic Other non-traumatic joint disorders (20 sources) Shoulder pain; Translations: [Acute pain of right shoulder] 05-01-2018 Episodic Other non-traumatic joint disorders (20 sources) Hip pain; Translations: [Hip pain] Resolved: 05-23-2022 12-08-2019 Episodic Other non-traumatic joint disorders (20 sources) Disorder of shoulder; Translations: [Shoulder impingement, right] 05-17-2022 Episodic Other non-traumatic joint disorders (20 sources) Pain in right shoulder; Translations: [Acute pain of right shoulder] 08-12-2022 Episodic Other nutritional; endocrine; and metabolic disorders (20 sources) Body mass index 30+ - obesity; Translations: [BMI 30.0-30.9,adult] Resolved: 02-11-2022 03-20-2018 Chronic Other nutritional; endocrine; and metabolic disorders (18 sources) Body mass index 25-29 - overweight; Translations: [BMI 28.0-28.9,adult] Resolved: 12-08-2019 12-23-2019 Episodic Other nutritional; endocrine; and metabolic disorders (20 sources) Overweight in adulthood with body mass index of 25 or more but less than 30; Translations: [BMI 28.0-28.9,adult] Resolved: 12-08-2019 12-23-2019 Episodic Otitis media and related conditions (20 sources) Dysfunction of bilateral eustachian tubes; Translations: [Eustachian tube dysfunction, bilateral] Resolved: 06-09-2019 10-11-2019 Episodic Peripheral and visceral atherosclerosis (20 sources) Renal artery stenosis; Translations: [HANNAH (renal artery stenosis)] 06-29-2020 Chronic Comment on above: b/l renal arteries<6 0% 07/12 Residual codes; unclassified (20 sources) Disorders of excessive somnolence; Translations: [Excessive somnolence disorder] 01-29-2021 Chronic Residual codes; unclassified (20 sources) Obstructive sleep apnea syndrome; Translations: [DEANN treated with BiPAP] 02-11-2022 Chronic Residual codes; unclassified (20 sources) H/O: surgery; Translations: [History of local excision of skin lesion] 04-02-2018 Episodic Residual codes; unclassified (20 sources) Postmenopausal state; Translations: [Postmenopausal (Renamed from Postmenopausal status)] 04-02-2018 Episodic Comment on above: due in 2020 due in 05/2021 Residual codes; unclassified (20 sources) Personal history of other specified conditions; Translations: [History of angioedema] 10-11-2019 Episodic Comment on above: foods trigger ti and she would like to see allergerist Residual codes; unclassified (20 sources) Non-smoker; Translations: [Non-smoker] 07-20-2020 Episodic Retinal detachments; defects; vascular occlusion; and retinopathy (20 sources) Serous retinal detachment, right eye; Translations: [Detachment of retina of right eye] 04-02-2018 Episodic Spondylosis; intervertebral disc disorders; other back problems (20 sources) Degeneration of lumbar intervertebral disc; Translations: [DDD (degenerative disc disease), lumbar] 10-11-2019 Chronic Spondylosis; intervertebral disc disorders; other back problems (20 sources) Low back pain; Translations: [Muscle spasm of back] Resolved: 05-23-2022 03-20-2018 Episodic Comment on above: with radiculopathy with radiculopathy-- that resovled now just pain in center ofl ow back --m ri showed ddd rubbed topical CBD-- pt got relief -- planning on getting some Sprains and strains (8 sources) Low back strain; Translations: [Strain of muscle, fascia and tendon of lower back, initial encounter] 02-04-2018 Episodic Superficial injury; contusion (20 sources) Abrasion of lower limb; Translations: [Abrasion of left lower extremity, initial encounter] Resolved: 05-23-2022 08-16-2021 Episodic Thyroid disorders (20 sources) Hypothyroidism; Translations: [Adult hypothyroidism] 10-11-2019 Chronic Unclassified (20 sources) Unclassified (20 sources) BMI 30.0-30.9,adult Unclassified (20 sources) Genital herpes in women Unclassified (20 sources) Non-smoker; Translations: [Non-smoker] 03-20-2018 Unclassified (20 sources) Encounter for screening mammogram for breast cancer (Renamed from Encounter for screening mammogram for malignant neoplasm of breast); Translations: [Patient encounter status] 04-02-2018 Unclassified (20 sources) Abnormal TSH Unclassified (20 sources) Adult hypothyroidism Unclassified (20 sources) BMI 31.0-31.9,adult Unclassified (20 sources) Therapeutic drug monitoring; Translations: [Drug therapy finding] 12-23-2019 Unclassified (20 sources) DDD (degenerative disc disease), lumbar Unclassified (20 sources) History of angioedema Unclassified (20 sources) Screening for lipid disorders; Translations: [Screening status] 12-23-2019 Comment on above: great # 3/20 Unclassified (20 sources) Nutritional counseling Unclassified (20 sources) Need for pneumococcal vaccination Unclassified (10 sources) Excessive somnolence disorder Unclassified (10 sources) BPV (benign positional vertigo) Unclassified (1 source) Low back pain, unspecified; Translations: [Low back pain, unspecified] Onset: 12-02-2023 Viral infection (20 sources) Herpes simplex of female genitalia; Translations: [Genital herpes in women] 03-20-2018 Chronic Comment on above: treats with flares-- not often Viral infection (20 sources) Disease caused by 2019-nCoV; Translations: [COVID] Resolved: 05-23-2022 11-07-2021 Episodic Comment on above: take vit d, B12 comp rose, turmeric, use saline nasal flushes and rinse w/ mouthwash tid, take melatonin for sleep. -referral for monoclonal, pt has medication contraindication for paxlovid. Explained risks and benefits of meds, education regarding covid management, and red flags/when to report for further evaluation. Past or Other Problems Problem Classification Problem Date Documented Date Episodic/Chronic Cardiac dysrhythmias (1 source) Palpitations; Translations: [Palpitations] Onset: 08-13-2024 Episodic Conditions associated with dizziness or vertigo (20 sources) Benign paroxysmal positional vertigo; Translations: [BPV (benign positional vertigo), right] Onset: 06-30-2024 01-22-2019 Episodic Comment on above: flonase spray -- no decog since working on bp Conditions associated with dizziness or vertigo (20 [...] Translations: [BMI 28.0-28.9,adult] Resolved: 12-08-2019 10-11-2019 Chronic Other screening for suspected conditions (not mental disorders or infectious disease) (20 sources) Thyroid hormone tests abnormal; Translations: [Breast neoplasm screening status] Onset: 05-19-2024 Resolved: 07-21-2019 10-11-2019 Episodic Comment on above: last scope 02/06 [facility] # 06/10 last scope 02/07- st saw dr quintana fall 2021 no scopes necessary Otitis media and related conditions (20 sources) [...] adult medical examination without abnormal findings)] 04-02-2018 Comment on above: last scope 02/08 [facility] # 06/10 last scope 02/06 Unclassified (20 sources) History of colon polyps Unclassified (20 sources) History of local excision of skin lesion Unclassified (20 sources) Colon cancer screening (Renamed from Encounter for screening for malignant neoplasm of colon); Translations: [Screening status] 07-21-2019 Comment on above: last scope 02/08 Unclassified (20 sources) Retinal detachment, right Unclassified (20 sources) Postmenopausal (Renamed from Postmenopausal status) Unclassified (20 sources) Accidental fall, initial encounter Unclassified (20 sources) Acute pain of right shoulder Unclassified (20 sources) BMI 32.0-32.9,adult Unclassified (20 sources) Unspecified Diagnosis 07-03-2018 Unclassified (20 sources) Flashing lights Unclassified (20 sources) BMI 28.0-28.9,adult Unclassified (20 sources) Puncture wound Unclassified (20 sources) Eustachian tube dysfunction, bilateral Unclassified (20 sources) Impacted cerumen of right ear Unclassified (20 sources) Thrush Unclassified (20 sources) HANNAH (renal artery stenosis) Unclassified (17 sources) BPV (benign positional vertigo), right Unclassified (11 sources) Hearing loss due to cerumen impaction, right Unclassified (11 sources) BPV (benign positional vertigo), bilateral Unclassified (10 sources) Annual Medicare Physical (Renamed from Medicare annual wellness visit, subsequent) Unclassified (9 sources) Breast cancer screening Unclassified (5 sources) Chilblains, initial encounter Unclassified (4 sources) Abrasion of left lower extremity, initial encounter Viral infection (20 sources) Disease caused by 2019-nCoV NEGATED: Highlighted row has been ruled out!Unclassified (20 sources) Problem Onset: 02-23-2018 03-20-2018 Results Test Name Value Interpretation Reference Range Facility [facility] 01-20-2025 CNOV Office Visit (PSYLWM ) -- TIFFANY NUÑEZ ([id number]) 1945 F Date Time Provider Department 01/20/25 10:00 AM HERMELINDO DAVIS PSYLWM During your visit today, we recorded the following information about you: Hermelindo Davis, PhD 01/20/2025 11:01 AM Signed [facility] Department Progress Note Tiffany Nuñez 01/20/2025 [id number] PROVIDER: Hermelindo Davis PhD CPT Code: Time: 50 minutes Setting: Patient seen in person Parties Present: Patient Treatment Modality/Interventions: Cognitive Behavioral Reassurance/Supportive Insight oriented Problem solving Processing of emotions Psychoeducation MENTAL STATUS: Mood: variable, anxious Affect: mood-congruent Thoughts/Associations:goal directed Suicidal/Homicidal Ideation: None expressed or evidenced Other Prominent Symptoms: Therapy Focus/Content of Session: Self-care, Stress management, Mood/affect regulation, and Self-esteem dog and she now has a puppy to train she has decided to wait until spring to decide about [place] Finances: not yet clarified money in and out 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 No current facility-administered medications for this visit. Psychiatric Medication Issues: No change from previous appointment DIAGNOSIS: Isabella I: Depression, recurrent Adjustment mixed self esteem Isabella II: deferred Isabella III: see med record Isabella IV: self esteem and situational depression Isabella V: 53-65 TREATMENT PROGRESS/ASSESSMENT: Progressing satisfactorily. TREATMENT PLAN/GOALS: Continue in therapy focusing on self-care, interpersonal relationships, stress management, affect management, anxiety management, and self-esteem. Next appointment: as scheduled Hermelindo Davis PhD Referring Provider: HERMELINDO DAVIS [[id number]] Allergies As of Date: 01/20/2025 (Not on File) Date Reviewed: Never Reviewed Primary Visit Diagnosis:Recurrent major depressive disorder, remission status unspecified [F33.9] Other Visit Diagnoses:Adjustment disorder with mixed anxiety and depressed mood [F43.23] Low self-esteem [R45.81] Problem List As Of Date: 01/20/2025 (None) Encounter Status:Closed by HERMELINDO DAVIS on 01/20/25 [facility] CNOVon 12-20-2024 CNOV Office Visit (PSYLWM ) -- TIFFANY NUÑEZ ([id number]) 1945 F Date Time Provider Department 12/20/24 11:00 AM HERMELINDO DAVIS PSYLWM During your visit today, we recorded the following information about you: Hermelindo Davis, PhD 12/20/2024 12:02 PM Signed [facility] Department Progress Note Tiffany Nuñez 12/20/2024 [id number] PROVIDER: Hermelindo Davis PhD CPT Code: Time: 50 minutes Setting: Patient seen in person Parties Present: Patient Treatment Modality/Interventions: Cognitive Behavioral Reassurance/Supportive Insight oriented Problem solving Processing of emotions Psychoeducation MENTAL STATUS: Mood: variable, anxious, fearful Affect: mood-congruent Thoughts/Associations:goal directed Suicidal/Homicidal Ideation: None expressed or evidenced Other Prominent Symptoms: Therapy Focus/Content of Session: Self-care, Mood/affect regulation, and Self-esteem Her dog has bone cancer as did the other similar breed dog foreshortening their lives to more like 9 than 13 years we discussed how rumination beyond being helpful has caused her unnecessary suffering she also discussed regrets of the past at [facility] and [facility] where the support and cooperation and mentoring was poor and the politics and egos problematic MEDICATIONS: Per medical record: No current outpatient medications on file. No current facility-administered medications for this visit. Psychiatric Medication Issues: No change from previous appointment DIAGNOSIS: Isabella I: Depression, recurrent Adjustment mixed self esteem Isabella II: deferred Isabella III: see med record Isabella IV: self esteem and situational depression Isabella V: 53-65 TREATMENT PROGRESS/ASSESSMENT: Progressing satisfactorily. TREATMENT PLAN/GOALS: Continue in therapy focusing on self-care, assertiveness skills, stress management, affect management, anxiety management, and self-esteem. Next appointment: as scheduled Hermelindo Davis PhD Referring Provider: HERMELINDO DAVIS [[id number]] Allergies As of Date: 12/20/2024 (Not on File) Date Reviewed: Never Reviewed Primary Visit Diagnosis:Recurrent major depressive disorder, remission status unspecified [F33.9] Other Visit Diagnoses:Adjustment disorder with mixed anxiety and depressed mood [F43.23] Low self-esteem [R45.81] Problem List As Of Date: 12/20/2024 (None) Encounter Status:Closed by HREMELINDO DAVIS on 12/20/24 Normal [facility] CNOVon 11-25-2024 CNOV Office Visit (PSYLWM ) -- TIFFANY NUÑEZ ([id number]) 1945 F Date Time Provider Department 11/25/24 3:00 PM HERMELINDO DAVIS PSYLWM During your visit today, we recorded the following information about you: Hermelindo Davis, PhD 11/25/2024 5:27 PM Signed [facility]al [facility] Department Progress Note Tiffany Nuñez 11/25/2024 [id number] PROVIDER: Hermelindo Davis PhD CPT Code: Time: 50 minutes Setting: Patient seen in person Parties Present: Patient Treatment Modality/Interventions: Cognitive Behavioral Reassurance/Supportive Insight oriented Problem solving Processing of emotions Psychoeducation MENTAL STATUS: Mood: variable Affect: mood-congruent Thoughts/Associations:goal directed Suicidal/Homicidal Ideation: None expressed or evidenced Other Prominent Symptoms: Therapy Focus/Content of Session: Self-care, Stress management, Mood/affect regulation, and Self-esteem Anxiety about whether to move to [place] or stay ISSUE: she has been reluctant to clarify her expenses and finances for fear of knowing she spends too much and has too little but that might not actually be the case PLAN: it doesnt change it and she needs to have data in front of her to make a thoughtful choice of what to do discussed how she might actually be ok discussed coping and BEING PRESENT vs lost in the past or future MEDICATIONS: Per medical record: No current outpatient medications on file. No current facility-administered medications for this visit. Psychiatric Medication Issues: DIAGNOSIS: Isabella I: Depression, recurrent Adjustment mixed self esteem Isabella II: deferred Isabella III: see med record Isabella IV: self esteem and situational depression Isabella V: 53-65 TREATMENT PROGRESS/ASSESSMENT: Progressing satisfactorily. TREATMENT PLAN/GOALS: Continue in therapy focusing on self-care, stress management, affect management, anxiety management, and self-esteem. Next appointment: as scheduled Hermelindo Davis PhD Allergies As of Date: 11/25/2024 (Not on File) Date Reviewed: Never Reviewed Primary Visit Diagnosis:Recurrent major depressive disorder, remission status unspecified [F33.9] Other Visit Diagnoses:Adjustment disorder with mixed anxiety and depressed mood [F43.23] Low self-esteem [R45.81] Problem List As Of Date: 11/25/2024 (None) Encounter Status:Closed by HERMELINDO DAVIS on 11/25/24 [facility] MR/BMS.BPon 11-15-2024 MR/BMS.[facility] [address] [place] [address], [place] [address] OFFICE VISIT Date of Service: 11/15/24 MR#: [id number] Acct: [id number] Name: TIFFANY NUÑEZ Rep #: [id number] : 1945 Provider: Dr. Bryant Noe se, DO Age/Sex: 79/F [place] [facility] [place] Status: Signed Intake Vital Signs 07/15/24 12:52 11/15/24 15:00 Height 5 ft 2 in 5 ft 2 in Weight: 166 lb 169 lb BMI 30.3 30.9 BP 117/77 119/81 H Blood Pressure Location Lt brachial Lt brachial Position Sitting Sitting Respiration 18 Pulse 59 L 54 L Pulse Source Monitor Monitor Pulse Oximetry (%) 94 Oxygen Delivery Method room air BP Intake Visit Reasons: 3 M FU Respite Worker Required: No Accompanied by: Self Is patient in pain?: No Allergies Penicillins Allergy (Verified 11/15/24 15:01) Rash Medications ???Medication ???Instructions ???Recorded ???Confirmed ???Type dexlansoprazole 60 mg 60 mg PO DAILY 05/02/23 11/15/24 H istory capsule,biphase delayed release levothyroxine 25 mcg tablet 25 mcg PO DAILY 05/02/23 11/15/24 History (Synthroid) losartan 100 1 tab PO DAILY 05/02/23 11/15/24 H istory mg-hydrochlorothiazide 25 mg tablet spironolactone 25 mg tablet 25 mg PO DAILY 05/02/23 11/15/24 H istory cholecalciferol (vitamin D3) 25 3,000 unit PO DAILY 07/09/2311/15 History mcg (1,000 unit) capsule multivitamin with minerals-folic tab PO 07/09/23 11/15/24 History acid 0.4 mg tablet (One-A-Day Women's 50 Plus) verapamil 360 mg 24 hr 360 mg PO QDAY 07/09/23 11/15/24 H istory capsule,extended release denosumab 60 mg/mL subcutaneous 60 mg subcut [id number] 12/02/23 History syringe (Prolia) calcium carbonate 400 mg PO QDAY 07/15/24 11/15/24 H istory inulin 2 gram chewable tablet g PO DAILY 07/15/24 11/15/24 Histo ry (Prebiotic Fiber) lactobacillus combination no.9 4 4,000 mmu cells PO QDAY 07/15/24 0 11/15/24 History billion cell capsule (Adult 50 Plus Probiotic) turmeric 400 mg capsule mg PO 07/15/24 11/15/24 History bupropion HCl 450 mg 24 hr tablet, 450 mg PO DAILY #90 tabs 5 11/15/24 Rx extended release vilazodone 20 mg tablet 20 mg PO DAILY #90 tabs 11/15/24 0 11/15/24 Rx Have you fallen in the past year?: Yes PFSH Medical History Hypothyroidism DEANN (obstructive sleep apnea) Renal artery stenosis Palpitations Hypotensive syncope History of angioedema MDD (major depressive disorder) GERD (gastroesophageal reflux disease) Hives Hearing problem Emotional problems Cataracts, bilateral Bone fracture Alcohol abuse Bulging disc Sacral fracture Back pain Limb weakness HTN (hypertension) Surgical History History of surgical procedure on mouth History of appendectomy History of tubal ligation History of cataract surgery Family History Mother Cancer lung Alcohol abuse Father Alcohol abuse Pancreatitis Diabetes Sister Multiple sclerosis Grandfather Heart disease Cancer throat CVA (cerebral vascular accident) Grandmother Hypertension Social History Smoking Status: Never smoker alcohol intake: former year quit: 2023 substance use type: does not use caffeine: Yes what type of physical activity do you participate in: other details: strengthening core 1-3x week HPI History of Present Illness History provided by: patient HPI: Tiffany Nuñez is a 79 year old female who presents today for follow up evaluation. Patient reports that she is doing ok. Still considering trying to find a us[place] community near [place]. Feels like she is doing largely [facility] [place]. Has spells every 3-4 days where she feels depressed, but doesn't think they necessitate. Describes significant stress related to ongoing stress in social situation. Continues to follow with Hermelindo Davis regularly. Sleep has been somewhat up and down. has been using her BiPAP which has helped with alertness, but still does awaken between 3-5 am at times. Denies SI/HI or AVH. Review of Systems Constitutional Reports: change in weight (small weight loss) Eyes Denies: change in vision or blurry vision Ears, Nose, Mouth, Throat Reports: vertigo and other (decreased hearing ); Denies: throat pain, neck pain or change in hearing Cardiovascular Reports: dyspnea Respiratory Reports: dyspnea; Denies: wheezing Gastrointestinal Denies: nausea, heartburn, diarrhea, constipation or bloating Genitourinary Reports: urinary frequency, urinary urgency and urinary incontinence Musculoskeletal Reports: back pain, joint pain, muscle weakness and other (stiffness,a (more content not included)... [facility]PSYLWM [facility] -- JOAQUINJANA MCNULTYPernell Farah ([id number]) 1945 F Date Time Provider Department 11/04/24 3:00 PM HERMELINDO DAVIS PSYLWM During your visit today, we recorded the following information about you: Hermelindo Davis, PhD 11/04/2024 4:06 PM Signed [facility]al [facility] Department Progress Note Tiffany Nuñez 11/04/2024 [id number] PROVIDER: Hermelindo Davis PhD CPT Code: Time: 50 minutes Setting: Patient seen in person Parties Present: Patient Treatment Modality/Interventions: Cognitive Behavioral Reassurance/Supportive Insight oriented Problem solving Processing of emotions Psychoeducation MENTAL STATUS: Mood: variable Affect: mood-congruent Thoughts/Associations:goal directed Suicidal/Homicidal Ideation: None expressed or evidenced Other Prominent Symptoms: Therapy Focus/Content of Session: Self-care, Stress management, Mood/affect regulation, and Self-esteem FEAR: seems to run the ship THEN she has a list of things she cant do and or wont work She is evaluating what is coming in and going out financially and it is unclear if she could move to [place] where frnd is She loves [place] but cant afford it and it has a good friend who would encourage doing things Hard to get out but doing some things even tonight NEXT: we will discuss what she CAN do MEDICATIONS: Per medical record: No current outpatient medications on file. No current facility-administered medications for this visit. Psychiatric Medication Issues: No change from previous appointment DIAGNOSIS: Isabella I: Depression, recurrent Adjustment mixed self esteem social phobia Isabella II: deferred Isabella III: see med record Isabella IV: self esteem and situational depression Isabella V: 53-65 TREATMENT PROGRESS/ASSESSMENT: Progressing satisfactorily. TREATMENT PLAN/GOALS: Continue in therapy focusing on self-care, affect management, and self-esteem. Next appointment: as scheduled Hermelindo Davis PhD Allergies As of Date: 11/04/2024 (Not on File) Date Reviewed: Never Reviewed Primary Visit Diagnosis:Recurrent major depressive disorder, remission status unspecified [F33.9] Other Visit Diagnoses:Adjustment disorder with mixed anxiety and depressed mood [F43.23] Low self-esteem [R45.81] Problem List As Of Date: 11/04/2024 (None) Encounter Status:Closed by HERMELINDO DAVIS on 11/04/24 Normal [facility] CNOVon 10-14-2024 CNOV Office Visit (PSYLWM ) -- TIFFANY NUÑEZ ([id number]) 1945 F Date Time Provider Department 10/14/24 3:00 PM HERMELINDO DAVIS PSYLWM During your visit today, we recorded the following information about you: Hermelindo Davis, PhD 10/14/2024 4:06 PM Signed [facility] Department Progress Note Tiffany Nuñez 10/14/2024 [id number] PROVIDER: Hermelindo Davis PhD CPT Code: Time: 50 minutes Setting: Patient seen in person Parties Present: Patient Treatment Modality/Interventions: Cognitive Behavioral Reassurance/Supportive Insight oriented Problem solving Processing of emotions Communication skills training Values Clarification Psychoeducation MENTAL STATUS: Mood: variable, anxious Affect: mood-congruent Thoughts/Associations:goal directed Suicidal/Homicidal Ideation: None expressed or evidenced Other Prominent Symptoms: Therapy Focus/Content of Session: Self-care, Stress management, Mood/affect regulation, and Self-esteem Struggling w how to have some kind of clear notion she is doing the right thing to move to [place] near [facility] she wants assurance PLAN: notice that the journey and the choosing are the life vs it 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 No current facility-administered medications for this visit. Psychiatric Medication Issues: see med record DIAGNOSIS: Isabella I: Depression, recurrent Adjustment mixed self esteem Isabella II: deferred Isabella III: see med record Isabella IV: self esteem and situational depression Isabella V: 53-65 TREATMENT PROGRESS/ASSESSMENT: Progressing satisfactorily. TREATMENT PLAN/GOALS: Continue in therapy focusing on self-care, interpersonal relationships, stress management, affect management, anxiety management, and self-esteem. Next appointment: as scheduled Hermelindo Davis PhD Allergies As of Date: 10/14/2024 (Not on File) Date Reviewed: Never Reviewed Primary Visit Diagnosis:Recurrent major depressive disorder, remission status unspecified [F33.9] Other Visit Diagnoses:Adjustment disorder with mixed anxiety and depressed mood [F43.23] Low self-esteem [R45.81] Problem List As Of Date: 10/14/2024 (None) Encounter Status:Closed by HERMELINDO DAVIS on 10/14/24 Normal [facility] CBC-Complete Blood Cnt No Di ffon 09-23-2024 Erythrocyte distribution width (RBC) [Ratio] 13.6 % Normal 11.6-14.6 [facility] Comment on above: Performed By: #### L 506.1001, L100.0500, L501.0900, L501.5200, L509.1000, L500.3600 #### [facility] [address] [place], [address] Hematocrit (Bld) [Volume fraction] 35.4 % Low 37-47 [facility] Comment on above: Performed By: #### L 506.1001, L100.0500, L501.0900, L501.5200, L509.1000, L500.3600 #### [facility] [address] [place], [address] Hemoglobin (Bld) [Mass/Vol] 12.0 g/dL Normal 12.0-15.0 [facility] Comment on above: Performed By: #### L 506.1001, L100.0500, L501.0900, L501.5200, L509.1000, L500.3600 #### [facility] [address] [place], [address] MCH (RBC) [Entitic mass] 34.0 pg High 27.0-32.0 [facility] Comment on above: Performed By: #### L 506.1001, L100.0500, L501.0900, L501.5200, L509.1000, L500.3600 #### [facility] [address] [place], [address] MCHC (RBC) [Mass/Vol] 33.9 g/dL Normal 32-36 [facility] Comment on above: Performed By: #### L 506.1001, L100.0500, L501.0900, L501.5200, L509.1000, L500.3600 #### [facility] [address] [place], [address] MCV (RBC) [Entitic vol] 100.3 fL High 81-99 [facility] Comment on above: Performed By: #### L 506.1001, L100.0500, L501.0900, L501.5200, L509.1000, L500.3600 #### [facility] [address] [place], [address] Platelet mean volume (Bld) [Entitic vol] 9.8 fL Normal 6.2-12.0 [facility] Comment on above: Performed By: #### L 506.1001, L100.0500, L501.0900, L501.5200, L509.1000, L500.3600 #### [facility] [address] [place], [address] Platelets (Bld) [#/Vol] 314 10*3/uL Normal 150-450 [facility] Comment on above: Performed By: #### L 506.1001, L100.0500, L501.0900, L501.5200, L509.1000, L500.3600 #### [facility] [address] [place], [address] RBC (Bld) [#/Vol] 3.53 10*6/uL Low 4.2-5.4 [facility] Comment on above: Performed By: #### L 506.1001, L100.0500, L501.0900, L501.5200, L509.1000, L500.3600 #### [facility] [address] [place], [address] RDW SD 49.3 fl High 35.1-43.9 [facility] Comment on above: Performed By: #### L 506.1001, L100.0500, L501.0900, L501.5200, L509.1000, L500.3600 #### [facility] [address] [place], [address] WBC (Bld) [#/Vol] 9.2 10*3/uL Normal 4.4-11.0 [facility] Comment on above: Performed By: #### L 506.1001, L100.0500, L501.0900, L501.5200, L509.1000, L500.3600 #### [facility] [address] [place], [address] Magnesiumon 09-23-2024 Magnesium [Mass/Vol] 2.2 mg/dL Normal 1.5-2.2 [facility] Comment on above: Performed By: #### L 506.1001, L100.0500, L501.0900, L501.5200, L509.1000, L500.3600 #### [facility] [address] [place], [address] PTHINon 09-23-2024 PTH 43 pg/mL Normal 11-61 [facility] Comment on above: Performed By: #### L 506.1001, L100.0500, L501.0900, L501.5200, L509.1000, L500.3600 #### [facility] [address] [place], [address] Protein+Creatinine Ratio,Uri neon 09-23-2024 PROT:CRE RATIO 135 mg/g CRE Normal 0-200 [facility] Comment on above: Performed By: #### L 506.1001, L100.0500, L501.0900, L501.5200, L509.1000, L500.3600 ####[facility] [address] [place], [address] PROTEIN,UR.RAN. < 6.0 Normal 0.0-12.0 [facility] Comment on above: Performed By: #### L 506.1001, L100.0500, L501.0900, L501.5200, L509.1000, L500.3600 ####[facility] [address] [place], [address] UR CREAT 41.70 mg/dL Normal 28.00-217. 00 [facility] Comment on above: Performed By: #### L 506.1001, L100.0500, L501.0900, L501.5200, L509.1000, L500.3600 ####[facility] [address] [place], [address] Renal Profileon 09-23-2024 Albumin [Mass/Vol] 4.2 g/dL Normal 3.4-4.8 [facility] Comment on above: Performed By: #### L 506.1001, L100.0500, L501.0900, L501.5200, L509.1000, L500.3600 #### [facility] [address] [place], [address] BUN/CRE 26.9 RATIO High 10-20 [facility] Comment on above: Performed By: #### L 506.1001, L100.0500, L501.0900, L501.5200, L509.1000, L500.3600 #### [facility] [address] [place], [address] Calcium [Mass/Vol] 9.3 mg/dL Normal 7.6-11.0 [facility] Comment on above: Performed By: #### L 506.1001, L100.0500, L501.0900, L501.5200, L509.1000, L500.3600 #### [facility] [address] [place], [address] Chloride [Moles/Vol] 103 mmol/L Normal 98-108 [facility] Comment on above: Performed By: #### L 506.1001, L100.0500, L501.0900, L501.5200, L509.1000, L500.3600 #### [facility] [address] [place], [address] CO2 [Moles/Vol] 20.2 mmol/L Low 21.0-32.0 [facility] Comment on above: Performed By: #### L 506.1001, L100.0500, L501.0900, L501.5200, L509.1000, L500.3600 #### [facility] [address] [place], [address] Creatinine [Mass/Vol] 0.69 mg/dL Low 0.70-1.20 [facility] Comment on above: Performed By: #### L 506.1001, L100.0500, L501.0900, L501.5200, L509.1000, L500.3600 #### [facility] [address] [place], [address] GAP 12 Normal 5-15 [facility] Comment on above: Performed By: #### L 506.1001, L100.0500, L501.0900, L501.5200, L509.1000, L500.3600 #### [facility] [address] [place], [address] GFR/1.73 sq M.predicted among non-blacks MDRD (S/P/Bld) [Vol rate/Area] 89 mL/min/{1.73_m2} Normal >60 [facility] Comment on above: Result Comment: mL/m in/1.73m2 CKD-EPI Creatinine Equation (2020) Performed By: #### L 506.1001, L100.0500, L501.0900, L501.5200, L509.1000, L500.3600 #### [facility] [address] [place], [address] Glucose [Mass/Vol] 90 mg/dL Normal 70-99 [facility] Comment on above: Performed By: #### L 506.1001, L100.0500, L501.0900, L501.5200, L509.1000, L500.3600 #### [facility] [address] [place], [address] Phosphate [Mass/Vol] 3.6 mg/dL Normal 2.7-4.5 [facility] Comment on above: Performed By: #### L 506.1001, L100.0500, L501.0900, L501.5200, L509.1000, L500.3600 #### [facility] [address] [place], [address] Potassium [Moles/Vol] 4.3 mmol/L Normal 3.3-5.1 [facility] Comment on above: Performed By: #### L 506.1001, L100.0500, L501.0900, L501.5200, L509.1000, L500.3600 #### [facility] [address] [place], [address] Sodium [Moles/Vol] 135 mmol/L Normal 133-145 [facility] Comment on above: Performed By: #### L 506.1001, L100.0500, L501.0900, L501.5200, L509.1000, L500.3600 #### [facility] [address] [place], [address] Urea nitrogen [Mass/Vol] 19 mg/dL Normal 4-19 [facility] Comment on above: Performed By: #### L 506.1001, L100.0500, L501.0900, L501.5200, L509.1000, L500.3600 #### [facility] [address] [place], [place], [address] Vitamin D,25 Hydroxyon 09-23 Vitamin D 25-OH 66.7 ng/mL Normal 30-100 [facility] Comment on above: Result Comment: Hillary min D Status Deficiency: <20 ng/mL (50nmol/L) Insufficiency: 20-30 ng/mL (50-75 nmol/L) Sufficiency: 30-100 ng/mL (75-250 nmol/L) Toxicity: >100 ng/mL (>250 nmol/L) Performed By: #### L 506.1001, L100.0500, L501.0900, L501.5200, L509.1000, L500.3600 #### [facility] [address] [place], [address] CNOVon 09-16-2024 CNOV Office Visit (PSYLWM ) -- TIFFANY NUÑEZ ([id number]) 1945 F Date Time Provider Department 09/16/24 4:00 PM HERMELINDO DAVIS PSYLWM During your visit today, we recorded the following information about you: Hermelindo Davis, PhD 09/16/2024 4:58 PM Signed [facility] Progress Note Tiffany Nuñez 09/16/2024 [id number] PROVIDER: Hermelindo Davis PhD CPT Code: Time: 50 minutes Setting: Patient seen in person Parties Present: Patient Treatment Modality/Interventions: Cognitive Behavioral Reassurance/Supportive Insight oriented Problem solving Processing of emotions Psychoeducation MENTAL STATUS: Mood: variable Affect: mood-congruent Thoughts/Associations:goal directed Suicidal/Homicidal Ideation: None expressed or evidenced Other Prominent Symptoms: Therapy Focus/Content of Session: Self-care, Stress management, Mood/affect regulation, and Self-esteem thinking about the constancy and possibly novelty moving to [place] if she stays, on the other hand, she could have multiple intensities of visits and trips because more available money MOOD: pretty good in the conext of some situational depression re politics etc and moving PLAN: continue to take little trips and live life now MEDICATIONS: Per medical record: No current outpatient medications on file. No current facility-administered medications for this visit. Psychiatric Medication Issues: No change from previous appointment DIAGNOSIS: Isabella I: Depression, recurrent Adjustment mixed self esteem Isabella II: deferred Isabella III: see med record Isabella IV: self esteem and situational depression Isabella V: 53-65 TREATMENT PROGRESS/ASSESSMENT: Progressing satisfactorily. TREATMENT PLAN/GOALS: Continue in therapy focusing on self-care, interpersonal relationships, affect management, and self-esteem. Next appointment: as scheduled Hermelindo Davis PhD Allergies As of Date: 09/16/2024 (Not on File) Date Reviewed: Never Reviewed Primary Visit Diagnosis:Recurrent major depressive disorder, remission status unspecified [F33.9] Other Visit Diagnoses:Adjustment disorder with mixed anxiety and depressed mood [F43.23] Low self-esteem [R45.81] Problem List As Of Date: 09/16/2024 (None) Encounter Status:Closed by HERMELINDO DAVIS on 09/16/24 [facility] CNOVon 08-26-2024 CNOV Office Visit (PSYLWM ) -- TIFFANY NUÑEZ ([id number]) 1945 F Date Time Provider Department 08/26/24 4:00 PM HERMELINDO DAVIS PSYLWM During your visit today, we recorded the following information about you: Hermelindo Davis, PhD 08/26/2024 5:15 PM Signed [facility] Department Progress Note Tiffany Nuñez 08/26/2024 [id number] PROVIDER: Hermelindo Davis PhD CPT Code: Time: 50 minutes Setting: Patient seen in person Parties Present: Patient Treatment Modality/Interventions: Cognitive Behavioral Reassurance/Supportive Insight oriented Problem solving Processing of emotions Psychoeducation MENTAL STATUS: Mood: variable Affect: mood-congruent Thoughts/Associations:goal directed Suicidal/Homicidal Ideation: None expressed or evidenced Other Prominent Symptoms: Therapy Focus/Content of Session: Self-care, Mood/affect regulation, and Self-esteem MOVE: she is struggling w how she will manage the dog w no yard .... but there are dog matute etc... it will just be different MOOD: fairly good but easily Awfulizes know that and has a friend who does it even more that gives her a perspective on what SHE does OUTCOME: she can get a better handle on it selling the house and going out to [place] to tour and get a reality check once her friend is there MEDICATIONS: Per medical record: No current outpatient medications on file. No current facility-administered medications for this visit. Psychiatric Medication Issues: No change from previous appointment DIAGNOSIS: Isabella I: Depression, recurrent Adjustment mixed self esteem Isabella II: deferred Isabella III: see med record Isabella IV: self esteem and situational depression Isabella V: 53-65 TREATMENT PROGRESS/ASSESSMENT: Progressing satisfactorily. TREATMENT PLAN/GOALS: Continue in therapy focusing on self-care, affect management, and self-esteem. Next appointment: as scheduled Hermelindo Davis, PhD Allergies As of Date: 08/26/2024 (Not on File) Date Reviewed: Never Reviewed Primary Visit Diagnosis:Recurrent major depressive disorder, remission status unspecified [F33.9] Other Visit Diagnoses:Adjustment disorder with mixed anxiety and depressed mood [F43.23] Low self-esteem [R45.81] Problem List As Of Date: 08/26/2024 (None) Encounter Status:Closed by HERMELINDO DAVIS on 08/26/24 [facility] Echo Completeon 08-10-2024 Echo [facility] [address] [address] Echo Complete 08/10/24 1459 MR#: [id number] Acct: [id number] Name: TIFFANY NUÑEZ Rep #: [id number] : 1945 79 From: Giovani López MD Attending Dr: Dr. Lasha Fletcher MD Status: RE G CLI Ordering Dr: Lasha Fletcher MD Date: 08/10/24 Location: [facility] Sex: F C Admitted: Reason For Study Reason For Study: Arrhythmia Procedure This was a 2D Doppler, Color Flow transthoracic echocardiogram. Exam performed in department. Left Ventricle Normal LV size. Left ventricular systolic function is normal. The left ventricular ejection fraction is 65 %. No regional wall motion abnormalities noted. Right Ventricle Normal RV size. Normal systolic function. Atria Normal left atrium. Normal right atrium. Mitral Valve Normal mitral valve. Tricuspid Valve Normal tricuspid valve. Mild tricuspid valve insufficiency. Pulmonary artery systolic pressure is 28 mmHg. Aortic Valve Trisinus/trileaflet aortic valve. Pulmonic Valve Normal pulmonic valve. Great Vessels Normal aortic root. The pulmonary artery is normal size. Inferior vena cava collapse with respiration. Pericardium/Pleural No pericardial effusion. MMode/2D Measurements Calculations LVIDd: 4.5 cm IVSd: 1.2 cm Ao root diam: 3.8 cm LVIDs: 2.8 cm LVPWd: 0.91 cm RVDd: 3.7 cm FS: 39.1 % LAV(MOD-bp): 53.5 ml LVAd ap4: 22.5 cm2 SV(MOD-sp4): 44.4 ml LAV(MOD-bp) Indexed: 30.3 ml/m2 LVLd ap4: 6.1 cm SI(MOD-sp4): 25.2 ml/m2 LAV(MOD-sp2): 57.1 ml EDV(MOD-sp4): 67.4 ml LAV(MOD-sp4): 49.0 ml EDV(sp4-el): 70.1 ml LVAs ap4: 11.9 cm2 LVLs ap4: 5.2 cm ESV(MOD-sp4): 22.9 ml ESV(sp4-el): 23.0 ml EF(MOD-sp4): 66.0 % EF(sp4-el): 67.1 % SV(sp4-el): 47.0 ml Ao sinus diam: 3.[address] Junction: 2.7 cm LA dimension(2D): 4.0 cm LA A4 area: 18.7 cm2 RA A4 area: 13.3 cm2 TAPSE: 2.2 cm Time Measurements MV dec time: 0.21 sec Doppler Measurements Calculations MV E max mark: 71.9 cm/sec Lat Peak E' Mark: 8.2 cm/sec Med Peak E' Mark: 5.9 cm/sec MV A max mark: 88.0 cm/sec E/E' lat: 8.8 E/E' med: 12.2 MV E/A: 0.82 MV V2 max: 107.8 cm/sec MV P1/2t max mark: 82.0 cm/sec Ao V2 max: 151.7 cm/sec MV max P.7 mmHg MV P1/2t: 78.8 msec Ao max P.2 mmHg MV V2 mean: 48.3 cm/sec MV dec slope: 304.6 cm/sec2 Ao V2 mean: 105.4 cm/sec MV mean P.2 mmHg Ao mean P.1 mmHg MV V2 VTI: 32.9 cm MVA(P1/2t): 2.8 cm2 Ao V2 VTI: 35.8 cm AV (velocity ratio): 0.90 LV V1 max: 135.3 cm/sec TR max mark: 246.1 cm/sec LV V1 max P.3 mmHg TR max P.2 mmHg LV V1 mean P.1 mmHg LV V1 mean: 96.3 cm/sec LV V1 VTI: 32.1 cm ECHO/Echo Complete Interpretation Summary Normal LV size. Left ventricular systolic function is normal. The left ventricular ejection fraction is 65 %. Structurally normal valves. Ordering Physician: Chance Colby Dr., MD Referring Physician: Jailene Michaels M.D. Performed By: Zachary Krishnamurthy RCS 08/10/241634 Date Giovani Lópze MD CC: Dr. Jailene Michaels, DO; Dr. Lasha Fletcher MD Date Dictated: 08/10/24 145 Date Transcribed: 08/10/241635 [employer] Safety Engineer: Signed [facility] CNOVon 08-05-2024 CNOV Office Visit (PSYLWM ) -- TIFFANY NUÑEZ ([id number]) 1945 F Date Time Provider Department 08/05/24 4:00 PM HERMELINDO DAVIS PSYLWM During your visit today, we recorded the following information about you: Hermelindo Davis, PhD 08/05/2024 5:13 PM Signed [facility] Department Progress Note Tiffany Nuñez 08/05/2024 [id number] PROVIDER: Hermelindo Davis, PhD CPT Code: Time: 50 minutes Setting: Patient seen in person Parties Present: Patient Treatment Modality/Interventions: Cognitive Behavioral Reassurance/Supportive Insight oriented Problem solving Processing of emotions Psychoeducation MENTAL STATUS: Mood: variable Affect: mood-congruent Thoughts/Associations:goal directed Suicidal/Homicidal Ideation: None expressed or evidenced Other Prominent Symptoms: Therapy Focus/Content of Session: Self-care, Stress management, Mood/affect regulation, Interpersonal, and Self-esteem MOVING: her friend has committed to spending summers at least until she get her own place .. renting one of the units Pt has reasonable minimal resources to move in the same [facility] PLAN: get going w exercise at [facility] [employer], go thru things, get a realtor, review finances w her friend etc. Health: seems steady and workable Time to move would be the end of the year or a bit beyond that News and the government distresses her PLAN: do your self well... and be more able to help or invite others vs just wish and use Shoulds and Oughts MEDICATIONS: Per medical record: No current outpatient medications on file. No current facility-administered medications for this visit. Psychiatric Medication Issues: No change from previous appointment DIAGNOSIS: Isabella I: Depression, recurrent Adjustment mixed self esteem Isabella II: deferred Isabella III: see med record Isabella IV: self esteem and situational depression Isabella V: 53-65 TREATMENT PROGRESS/ASSESSMENT: Progressing satisfactorily. TREATMENT PLAN/GOALS: Continue in therapy focusing on self-care, assertiveness skills, affect management, and self-esteem. Next appointment: as scheduled Hermelindo Davis PhD Allergies As of Date: 08/05/2024 (Not on File) Date Reviewed: Never Reviewed Primary Visit Diagnosis:Recurrent major depressive disorder, remission status unspecified [F33.9] Other Visit Diagnoses:Adjustment disorder with mixed anxiety and depressed mood [F43.23] Low self-esteem [R45.81] Problem List As Of Date: 08/05/2024 (None) Encounter Status:Closed by HERMELINDO DAVIS on 08/05/24 [facility] CNOVon 07-20-2024 CNOV Office Visit (PSYLWM ) -- TIFFANY NUÑEZ ([id number]) 1945 F Date Time Provider Department 07/20/24 3:00 PM HERMELINDO DAVIS PSYLWM During your visit today, we recorded the following information about you: Hermelindo Davis, PhD 07/20/2024 4:01 PM Signed [facility] Department Progress Note Tiffany Nuñez 07/20/2024 [id number] PROVIDER: Gene A Ryan, PhD CPT Code: Time: 50 minutes Setting: Patient seen in person Parties Present: Patient Treatment Modality/Interventions: Cognitive Behavioral Reassurance/Supportive Insight oriented Problem solving Processing of emotions Psychoeducation MENTAL STATUS: Mood: variable Affect: mood-congruent Thoughts/Associations:goal directed Suicidal/Homicidal Ideation: None expressed or evidenced Other Prominent Symptoms: Therapy Focus/Content of Session: Self-care, Stress management, Mood/affect regulation, and Self-esteem Pt's friend has checked out the place in [place] and found it friendly and a good match Pt will need to see what it will cost to live there monthly and what she might get for her house here Essential Tremor: she is having difficulty with the keyboard PLAN: see first if she can reduce caffeine and if not... she might need to work on BP med shifts Dog: she likes large dogs and can keep hers ... if she were to move to [place] She would like another but it is likely impractical Health: fairly steady MEDICATIONS: Per medical record: No current outpatient medications on file. No current facility-administered medications for this visit. Psychiatric Medication Issues: No change from previous appointment DIAGNOSIS: Isabella I: Depression, recurrent Adjustment mixed self esteem Isabella II: deferred Isabella III: see med record Isabella IV: self esteem and situational depression Isabella V: 53-65 TREATMENT PROGRESS/ASSESSMENT: Progressing satisfactorily. TREATMENT PLAN/GOALS: Continue in therapy focusing on self-care, affect management, and self-esteem. Next appointment: as scheduled Hermelindo Davis, PhD Referring Provider: SELF [200] Allergies As of Date: 07/20/2024 (Not on File) Date Reviewed: Never Reviewed Primary Visit Diagnosis:Recurrent major depressive disorder, remission status unspecified [F33.9] Other Visit Diagnoses:Adjustment disorder with mixed anxiety and depressed mood [F43.23] Low self-esteem [R45.81] Problem List As Of Date: 07/20/2024 (None) Encounter Status:Closed by HERMELINDO DAVIS on 07/20/24 [facility] 12 Lead EKG performed by [facility] on 07-15-2024 12 Lead EKG performed by [facility] [address] [place] [address] 12 Lead EKG performed by [facility] 07/15/24 0743 MR#: [id number] Acct: [id number] Name: TIFFANY NUÑEZ Rep #: [id number] : 1945 79 From: Lasha Fletcher MD Attending Dr: Dr. Lasha Fletcher MD Status: DE P AMB Ordering Dr: Lasha Fletcher MD Date: 07/15/24 Location: [facility] [place] Sex: F C Admitted: BMS/12 Lead EKG performed by [facility] ECG Report Interpretation Sinus Bradycardia Low voltage -possible pulmonary disease. ABNORMAL Electronically signed on 07/15/2024 at 14:[address] Lasha Fletcher [employer] Version [id number] 07/15/24 1441 Date Lasha Fletcher MD CC: Dr. Jailene Michaels, Date Dictated: 07/15/2443 Date Transcribed: 07/15/24742 [employer] Safety Engineer: Signed Normal [facility] Cardiology Visit Reporton Cardiology Visit Report [facility] [address] [place] [address]. [address] [place], [place] [address] OFFICE VISIT Date of Service: 07/15/24 MR#: [id number] Acct: [id number] Name: TIFFANY NUÑEZ Rep #: [id number] : 1945 Provider: Dr. Lasha ogden MD Age/Sex: 79/F Location: [facility] [place] Status: Signed HPI HPI History of Present Illness Details: Patient is a 79-year-old pleasant white female that comes in today for new patient visit. Patient is referred for palpitations that have been diagnosed on a Holter monitor as PACs that were symptomatic. The patient denies any syncope or near syncope she occasionally feels these fluttering's and it makes her anxious. She has not had an outright panic attack. Patient has a history of hypertension which is well-controlled history of hypothyroidism on replacement and right renal artery with a 60 point stenosis less than 60% stenosis on the left renal artery. The patient's blood pressure in office today is 117/77 with a heart rate of 59. The patient has a history of obstructive sleep apnea and she has been struggling with her CPAP device. Back in 2017 the patient was evaluated at [facility] when she had an abnormal ECG that showed an old inferior Q waves and nonspecific T wave changes. She had a negative nuclear stress test and an echocardiogram that showed mild LVH with a 70% ejection fraction thick aortic and mitral valves with no MR or . Currently the patient denies any anginal type symptoms. Denies any PND orthopnea denies any lower extremity edema. She does report that her ECG showed extra beats in the primary care's office. That led to the Holter monitor which demonstrated minimal PVCs and 6.4% of the QRS complexes being PACs with no significant runs. There was no atrial fibrillation. Intake Vital Signs 05/03/24 13:01 07/15/24 12:52 Height 5 ft 2 in 5 ft 2 in Weight: 162 lb 166 lb BMI 29.6 30.3 BP 136/84 H 117/77 Blood Pressure Location Lt brachial Lt brachial Position Sitting Sitting Respiration 16 18 Pulse 64 59 L Pulse Source Monitor Monitor Pulse Oximetry (%) 94 Oxygen Delivery Method room air Intake Visit Reasons: Palps/ABN Holter (Xenia) Respite Worker Required: No Accompanied by: Self Allergies Penicillins Allergy (Verified 06/30/24 13:43) Rash Medications ???Medication ???Instructions ???Recorded ???Confirmed ???Type dexlansoprazole 60 mg 60 mg PO DAILY 05/02/23 07/15/24 H istory capsule,biphase delayed release levothyroxine 25 mcg tablet 25 mcg PO DAILY 05/02/23 07/15/24 History (Synthroid) losartan 100 1 tab PO DAILY 05/02/23 07/15/24 H istory mg-hydrochlorothiazide 25 mg tablet spironolactone 25 mg tablet 25 mg PO DAILY 05/02/23 07/15/24 H istory cholecalciferol (vitamin D3) 25 3,000 unit PO DAILY 07/09/2307/15 History mcg (1,000 unit) capsule multivitamin with minerals-folic tab PO 07/09/23 07/15/24 History acid 0.4 mg tablet (One-A-Day Women's 50 Plus) verapamil 360 mg 24 hr 360 mg PO QDAY 07/09/23 07/15/24 H istory capsule,extended release denosumab 60 mg/mL subcutaneous 60 mg subcut [id number] 12/02/23 History syringe (Prolia) bupropion HCl 450 mg 24 hr tablet, 450 mg PO DAILY #90 tabs 5 07/15/24 Rx extended release vilazodone 20 mg tablet 20 mg PO DAILY #90 tabs 05/03/24 0 07/15/24 Rx black cumin seed PO DAILY 07/15/24 History calcium carbonate 400 mg PO QDAY 07/15/24 07/15/24 H istory echinacea 125 mg capsule 125 mg PO QDAY PRN 07/15/24 History immunomax III PO DAILY PRN 07/15/24 07/15/24 His tory inulin 2 gram chewable tablet g PO DAILY 07/15/24 07/15/24 Histo ry (Prebiotic Fiber) lactobacillus combination no.9 4 4,000 mmu cells PO QDAY 07/15/24 0 07/15/24 History billion cell capsule (Adult 50 Plus Probiotic) turmeric 400 mg capsule mg PO 07/15/24 07/15/24 History vitamin B complex 1 tab PO QDAY 07/15/24 07/15/24 Hi story Have you fallen in the past year?: Yes PFSH Medical History (Updated 07/15/24 @ 13:[address] Lasha Fletcher MD) Hypothyroidism DENAN (obstructive sleep apnea) Renal artery stenosis Palpitations Hypotensive syncope History of angioedema MDD (major depressive disorder) GERD (gastroesophageal reflux disease) Hives Hearing problem Emotional problems Cataracts,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 GRAVITY WITHOUT FEAR OF FALLING. WORK TO INCREASE SINGLE LEG BALANCE TIME, STRIDE LENGTH, HIP ROM AND LE STRENGTH THROUGH NEW ROM GAINED. PATIENT IS INDEP WITH A GYM EX PROGRAM BUT CONTINUE TO WORK ON CORE STRENGTH AND STABILITY. Balance/Gait/Functional tests Balance/Special Test Scores Oswestry Low Back Score: 3 Goals Goals Goal 1:: NORMALIZE GAIT PATTERN ON LEVEL SURFACES WITHOUT C/O BACK PAIN Goal Time Frame: 4-6 Weeks Goal Progress: Progressing Goal 2:: PATIENT WILL REPORT CONFIDENCE IN STANDING AND WALKING TO DO HER NORMAL ADL'S Goal Time Frame: 4-6 Weeks Goal Progress: Progressing Goal 3:: PATIENT WILL BE ABLE TO ASCEND AND DESECEND STEPS RECIPROCALLY WITH ONE HR WITHOUT LIMITATION Goal Time Frame: 4-6 Weeks Goal Progress: Goal Met Goal 4:: PATIENT WILL BE INDEP WITH A HOME, GYM AND/OR WATER EX PROGRAM FOR CONTINUED IMPROVEMENT ONCE FORMAL PHYSICAL THERAPY CONCLUDES. Goal Time Frame: 4-6 Weeks Goal Progress: Progressing Anticipated Interventions Anticipated Interventions Patient/Client Instruction: Educate patient on: Condition, Plan of Care and Risk Factors For the Purpose of:: To improve self management Therapeutic Exercise to Include: Strength training, Balance training, Body mechanics, Postural training, Flexibilty training, Gait and locomotor training, Neuromotor development, In an aquatic setting and Dynamic Lumbar Stabilization For the Purpose of:: To decrease pain, To improve muscle performance and motor function, To increase tolerance to activity/condition/positio n, To improve ability of physical actions for home/community/work/leisur e, To improve gait and locomotor functions, To increase flexibility/ROM, To improve safety with gait and To improve self management Re-Evaluation Ending Re-evaluation ending: Please do not hesitate to contact me at [phone] by phone or if you have questions or concerns regarding this new plan of care! Sincerely, Suni Botello, PT, Cert MDT 01/08/24 5582 CC: Dr. Jailene Michaels DO CATRACHITO Signed For Medicare only, by signing this I certify the plan of care. __ Physicians Signature Date Normal [facility] L/S Spine Min 4 Viewson 11-22 L/S Spine Min 4 Views [facility] [address] [place] [address] L/S Spine Min 4 Views MR#: [id number] Acct: [id number] Name: TIFFANY NUÑEZ Rep #: [id number] : 1945 F 78 From: Azam Teresa PCP: Dr. Jailene Michaels DO Status: DEP AMB Study: L/S Spine Min 4 Views Date of Exam: 12/02/23 Exam# [id number] Ordering Dr: Michelle De Jesus [id number] INDICATION: Low back pain -- Please do upright AP, LAT, flex/extension EXAMINATION/TECHNIQUE: X-RAY - XR Spine Lumbar Min 4 Views COMPARISON: Prior study dated: 03/11/2018 FINDINGS: VERTEBRAE: Preserved vertebral body height. No fracture. Minimal retrolisthesis of L2 over L3 stable on the flexion and extension views. Mild anterolisthesis of L5 over S1 also stable on the flexion and extension views. Preservation of the normal lumbar lordosis. Mild levoscoliosis. DISCS: Severe disc space narrowing of L2-L3 with endplate spondylosis exam. Mild narrowing of L5-S1 disc space. INCLUDED ABDOMEN: Large calcified uterine fibroid is again seen. RAD/L/S Spine Min 4 Views IMPRESSION: Degenerative changes of the lumbar spine as described above. Electronically Signed: Azam Fuller MD at 10:02 EDT , CC: SHEELA Ellis; Dr. Jailene Michaels DO [employer] Safety Engineer: Signed Normal [facility] Orthopedic Visit Reporton Orthopedic Visit Report [facility] [address] [place] [address] OFFICE VISIT Date of Service: 12/02/23 MR#: [id number] Acct: [id number] Name: TIFFANY NUÑEZ Rep #: [id number] : 1945 Provider: Dr. Gil Jackson MD Age/Sex: 78/F Location[place] [facility] [place] Status: Signed Intake Vital Signs 10/29/23 14:44 12/02/23 13:54 Height 5 ft 2 in 5 ft 2 in Weight: 157 lb 8 oz BMI 28.8 BP 105/79 Blood Pressure Location Rt brachial Position Sitting Pulse 73 Pulse Source Monitor Intake Visit Reasons: LUMBAR SPINE Accompanied by: Self Is patient in pain?: Yes Pain scale (1-10): 2 Allergies Penicillins Allergy (Verified 12/02/23 13:56) Rash Medications ???Medication ???Instructions ???Recorded ???Confirmed ???Type dexlansoprazole 60 mg 60 mg PO DAILY 05/02/23 12/02/23 History capsule,biphase delayed release levothyroxine 25 mcg tablet 25 mcg PO DAILY 05/02/23 12/02/23 History (Synthroid) losartan 100 1 tab PO DAILY 05/02/23 12/02/23 History mg-hydrochlorothiazide 25 mg tablet spironolactone 25 mg tablet 25 mg PO DAILY 05/02/23 12/02/23 History cholecalciferol (vitamin D3) 25 3,000 unit PO DAILY 07/09/23 12/02/23 History mcg (1,000 unit) capsule multivitamin with minerals-folic tab PO 07/09/23 12/02/23 History acid 0.4 mg tablet (One-A-Day Women's 50 Plus) verapamil 360 mg 24 hr 360 mg PO QDAY 07/09/23 12/02/23 History capsule,extended release bupropion HCl 450 mg 24 hr tablet, 450 mg PO DAILY #90 tabs 09/30/23 12/02/23 Rx extended release vilazodone 20 mg tablet 20 mg PO DAILY #90 tabs 11/10/23 12/02/23 Rx denosumab 60 mg/mL subcutaneous 60 mg subcut [id number] 12/02/23 12/02/23 History syringe (Prolia) Have you fallen in the past year?: Yes PFSH Medical History MDD (major depressive disorder) GERD (gastroesophageal reflux disease) Hives Hearing problem Emotional problems Cataracts, bilateral Bone fracture Alcohol abuse Bulging disc Sacral fracture Back pain Limb weakness HTN (hypertension) Surgical History History of tubal ligation History of cataract surgery Family History Mother Cancer lung Alcohol abuse Father Alcohol abuse Pancreatitis Diabetes Sister Multiple sclerosis Grandfather Heart disease Cancer throat CVA (cerebral vascular accident) Grandmother Hypertension Social History Smoking Status: Never smoker alcohol intake: current alcohol intake frequency: 3 or more drinks per day Alcohol type: wine details: 2-3 glasses of wine a day. substance use type: does not use what type of physical activity do you participate in: other details: strengthening core 1-3x week HPI LUMBAR SPINE Details: This documentation accurately reflects the service provided and the decisions made by me, Dr. Gil Jackson MD 12/02/23 1192. Part of today???s visit was documented by Nicole MARQUEZ, acting as scribe. TIFFANY NUÑEZ is a 78 year old F here today NEW patient for low back pain. She states that in February she fractured her sacrum. Then she started to have back pain with issues walking in February. She states that in the fall of 2022 she was trying to dig holes for her plants and was putting a lot of pressure on her back then a week or 2 later she had a lot of pain in her right lower groin and thinks that may have caused the fracture. She had to use a walker for several weeks due to the pain. She notes that she didn't fall but did have a fall 3 weeks ago. She states that she was feeling lightheaded and fell backwards. She denies radiating pain. Denies numbness, tingling or other associated symptoms. Denies pain that extends down her leg. Here today for weakness around the left knee. She denies previous surgery. She has done PT at [facility] for about 8 weeks for balance and gait issues which did help with the back pain. She did have an epidural injection in her back which was in September or October that was done by Dr. Rahman. She takes Tylenol PRN for pain. She wears a lift in her right shoe which is about a quarter inch in height and has been wearing it for several years. Ortho Exam General General: Yes no acute distress Neurologic: Yes alert and Yes oriented x3 Spine SPINE TESTING CERVICAL THORACIC LUMBAR Musculoskeletal Strength 0=absent - 5=normal Details: Neurological exam of the lower extremities shows 5x5 power. Normal sensations across all dermatomes. No hyperreflexia. Mild lumbar midline tenderness. No paraspinal tenderness. Single leg stand does not cause pain. Coding Level of Care Code Off vis,new,level 4 Diag (more content not included)... Normal [facility] No Panel InformationOrdered By: Jailene Michaels on 12-05-2022 Thyroid Stimulating Hormone (TSH) 2.45 uIU/mL 0.358-3.74 [facility] Vitamin D 25-Hydroxy 50.4 ng/mL [facility] Comment on above: Vitamin D 25(OH) Sta tus Range Deficiency <20 ng/mL (50nmol/L) Insufficiency 20 - 30 ng/mL (50 - 75 nmol/L) Sufficiency 30 - 100 ng/mL (75 - 250 nmol/L) Toxicity >100 ng/mL (>250 nmol/L) Basophil percentageOrdered B y: Yair Garcia on 08-29-2022 Basophil percentage 3.1 mg/dL 2.5-4.9 [facility] Chloride [Moles/Vol] 108 mmol/L 98-107 [facility] Glucose [Mass/Vol] 72 mg/dL 74-106 [facility] Potassium [Moles/Vol] 4.1 mmol/L 3.5-5.1 [facility] Comment on above: Moderate Hemolysis, Result may be falsely increased. Sodium [Moles/Vol] 139 mmol/L 136-145 [facility] Laboratory - Chemistry and C hemistry - challengeOrdered By: Yair Garcia on 08-29-2022 CO2 [Moles/Vol] 23.0 mmol/L 21.0-32.0 [facility] Magnesium [Mass/Vol] 2.5 mg/dL 1.6-2.6 [facility] Comment on above: Moderate Hemolysis, Result may be falsely increased. Urea nitrogen/Creatinine [Mass ratio] 38.3 mg/mg 10- [facility] No Panel InformationOrdered By: Yair Garcia on 08-29-2022 Estimated GFR (MDRD) Amer 119 mL/min >60 [facility] Comment on above: GFR Calc Estimated GFR (MDRD) Non-Af Amer 98 mL/min >60 [facility] Comment on above: Non- GFR Calc Urine Microalbumin/Creatin ine Ratio TNP [facility] Comment on above: Test not performed Vitamin D 25-Hydroxy 59.8 ng/mL [facility] Comment on above: Vitamin D 25(OH) Sta tus Range Deficiency <20 ng/mL (50nmol/L) Insufficiency 20 - 30 ng/mL (50 - 75 nmol/L) Sufficiency 30 - 100 ng/mL (75 - 250 nmol/L) Toxicity >100 ng/mL (>250 nmol/L) Serum or plasma albumin reagan urement (mass/volume)[facility] on 08-29-2022 Albumin [Mass/Vol] 3.6 g/dL 3.2-5.0 [facility] Serum or plasma calcium reagan urement (mass/volume)Ordered By: [facility] on 08-29-2022 Calcium [Mass/Vol] 9.2 mg/dL 8.5-10.1 [facility] Serum or plasma creatinine m easurement (mass/volume)Ordered By: [facility] on 08-29-2022 Creatinine [Mass/Vol] 0.63 mg/dL 0.55-1.02 [facility] Comment on above: The validity of the calculated GFR & GFRAA in patients over 70 years has not been determined. Clinical correlation is essential. Serum or plasma urea nitroge n measurement (mass/volume)Ordered By: [facility] on 08-29-2022 Urea nitrogen [Mass/Vol] 24 mg/dL 7-18 [facility] Thin prep Papanicolaou smear with manual screeningOrdered By: [facility] on 08-29-2022 Thin prep Papanicolaou smear with manual screening < 5.0 mg/L NO RANGE EST. [facility] Urine creatinine measurement (mass/volume)Ordered By: [facility] on 08-29-2022 Creatinine (U) [Mass/Vol] 14.80 mg/dL NO RANGE EST. [facility] Basophil percentageon 2021 Basophil percentage 3.2 mg/dL 2.5-4.9 [facility] Work Phone: Chloride [Moles/Vol] 103 mmol/L 98-107 [facility] Work Phone: Glucose [Mass/Vol] 88 mg/dL 74-106 [facility] Work Phone: Potassium [Moles/Vol] 3.6 mmol/L 3.5-5.1 [facility] Work Phone: Sodium [Moles/Vol] 139 mmol/L 136-145 [facility] Work Phone: WBC (Bld) [#/Vol] 7.8 10*3/uL 4.4-11.0 [facility] Work Phone: Blood erythrocytes count (nu mber/volume)on 02-04-2022 RBC (Bld) [#/Vol] 4.01 10*6/uL 4.2-5.4 [facility] Work Phone: Blood hemoglobin measurement (mass/volume)on 02-04-2022 Hemoglobin (Bld) [Mass/Vol] 13.2 g/dL 12.0-15.0 [facility] Work Phone: Blood platelet mean volumeon 02-04-2022 Platelet mean volume (Bld) [Entitic vol] 9.8 fL 6.2-12.0 [facility] Work Phone: CALCIFEDIOL ([phone])Ordered B y: Ore Crusher on 02-04-2022 25-hydroxyvitamin D [Mass/Vol] 57.8 ng/mL Normal 30.0-100.0 [facility]; [facility] Work Phone: Comment on above: Vitamin D deficiency has been defined by the [place] ofMedicine and an Endocrine Society practice guideline as alevel of serum 25-OH vitamin D less than 20 ng/mL (1,2).The Endocrine Society went on to further define vitamin Dinsufficiency as a level between 21 and 29 ng/mL (2).1. IOM ([place] of [employer]). 2010. Dietary reference intakes for calcium and D. [place]: The National Academies Press.2. Chavez MF, Brian NC, Nakul HARE, et al. Evaluation, treatment, and prevention of vitamin D deficiency: an Endocrine Society clinical practice guideline. JCEM. 2010; 96(7):1911-30. PATIENT NOT FASTINGP ERFORMED BY: [facility] [facility] [id number] CBC, PLATELETS & AUT DIFF ([id number])Ordered By: Ore Crusher on 02-04-2022 Basophils (Bld) [#/Vol] 0.1 10*3/uL Normal 0.0-0.2 [facility]; [facility] Work Phone: Comment on above: PATIENT NOT FASTINGP ERFORMED BY: CB [facility] Gqhihw[address]ublin [place] [id number]; appt 02/11 Basophils/100 WBC (Bld) 1 % Normal [facility]; [facility] Work Phone: Comment on above: PATIENT NOT FASTINGP ERFORMED BY: CB [facility] [id number] [address] RoadDublin [place] [id number]; appt 02/11 Eosinophils (Bld) [#/Vol] 0.2 10*3/uL Normal 0.0-0.4 [facility]; [facility] Work Phone: Comment on above: PATIENT NOT FASTINGP ERFORMED BY: CB [facility] Warhza6190 [address] RoadDublin [place] [id number]; appt 02/11 Eosinophils/100 WBC (Bld) 2 % Normal [facility]; [facility] Work Phone: Comment on above: PATIENT NOT FASTINGP ERFORMED BY: CB [facility] Kvyarz7766 [address] RoadDublin [place] [id number]; appt 02/11 Erythrocyte distribution width (RBC) [Ratio] 12.1 % Normal 11.7-15.4 [facility]; [facility] Work Phone: Comment on above: PATIENT NOT FASTINGP ERFORMED BY: CB [facility] Endzbc0416 [address] RoadDublin [place] [id number]; appt 02/11 Hematocrit (Bld) [Volume fraction] 38.7 % Normal 34.0-46.6 [facility]; [facility] Work Phone: Comment on above: PATIENT NOT FASTINGP ERFORMED BY: CB [facility] [id number] RoadDublin [place] [id number]; appt 02/11 Hemoglobin (Bld) [Mass/Vol] 13.1 g/dL Normal 11.1-15.9 [facility]; [facility] Work Phone: Comment on above: PATIENT NOT FASTINGP ERFORMED BY: JESSE [facility] Rnxhyp89[address]bl[address] [place] [id number]; appt 02/11 Immature granulocytes (Bld) [#/Vol] 0.0 10*3/uL Normal 0.0-0.1 [facility]; [facility] Work Phone: Comment on above: PATIENT NOT FASTINGP ERFORMED BY: CB [facility] [id number] [place] [id number]; appt 02/11 Immature granulocytes/100 WBC (Bld) 0 % Normal [facility]; [facility] Work Phone: Comment on above: PATIENT NOT FASTINGP ERFORMED BY: CB [facility] Jnxwvy6068 Roger RoadQuorum Healthin [place] [id number]; appt 02/11 Lymphocytes (Bld) [#/Vol] 1.8 10*3/uL Normal 0.7-3.1 [facility]; [facility] Work Phone: Comment on above: PATIENT NOT FASTINGP ERFORMED BY: CB [facility] Rdnssu[address] [facility] Centerin [place] [id number]; appt 02/11 Lymphocytes/100 WBC (Bld) 22 % Normal [facility]; [facility] Work Phone: Comment on above: PATIENT NOT FASTINGP ERFORMED BY: CB [facility] Hhukbn[address] [facility]bl[facility] [place] [id number]; appt 02/11 MCH (RBC) [Entitic mass] 33.1 pg Abnormal 26.6-33.0 [facility]; [facility] Work Phone: Comment on above: PATIENT NOT FASTINGP ERFORMED BY: CB [facility] Zxskuj01[address] RoadDublin [place] [id number]; appt 02/11 MCHC (RBC) [Mass/Vol] 33.9 g/dL Normal 31.5-35.7 [facility]; [facility] Work Phone: Comment on above: PATIENT NOT FASTINGP ERFORMED BY: JESSE Lab[facility]ann[facility] Khoaps40[address] RoadDublin [place] [id number]; appt 02/11 MCV (RBC) [Entitic vol] 98 fL Abnormal 79-97 [facility]; [facility] Work Phone: Comment on above: PATIENT NOT FASTINGP ERFORMED BY: CB [facility] Hnzrje96[address] RoadDublin [place] [id number]; appt 02/11 Monocytes (Bld) [#/Vol] 1.1 10*3/uL Abnormal 0.1-0.9 [facility]; [facility] Work Phone: Comment on above: PATIENT NOT FASTINGP ERFORMED BY: JESSE Labcoshannan RodriguezLihrac4[address] RoadDublin [place] [id number]; appt 02/11 Monocytes/100 WBC (Bld) 13 % Normal [facility]; [facility] Work Phone: Comment on above: PATIENT NOT FASTINGP ERFORMED BY: CB Labcoshannan RodriguezOmhzex29[address] RoadDublin [place] [id number]; appt 02/11 Neutrophils (Bld) [#/Vol] 5.2 10*3/uL Normal 1.4-7.0 [facility]; [facility] Work Phone: Comment on above: PATIENT NOT FASTINGP ERFORMED BY: CB [facility] Vbrjjk7[address] RoadDublin [place] [id number]; appt 02/11 Neutrophils/100 WBC (Bld) 62 % Normal [facility]; [facility] Work Phone: Comment on above: PATIENT NOT FASTINGP ERFORMED BY: CB [facility] Opplfx6[address] RoadDublin [place] [id number]; appt 02/11 Platelets (Bld) [#/Vol] 301 10*3/uL Normal 150-450 [facility]; [facility] Work Phone: Comment on above: PATIENT NOT FASTINGP ERFORMED BY: CB [facility] Yscqie0397 [address] RoadDublin [place] [id number]; appt 02/11 RBC (Bld) [#/Vol] 3.96 10*6/uL Normal 3.77-5.28 [facility]; [facility] Work Phone: Comment on above: PATIENT NOT FASTINGP ERFORMED BY: LabcoRutgers - University Behavioral HealthCareBiowpe[address] [facility] [id number]; appt 02/11 WBC (Bld) [#/Vol] 8.3 10*3/uL Normal 3.4-10.8 [facility]; [facility] Work Phone: Comment on above: PATIENT NOT FASTINGP ERFORMED BY: [facility] [facility] [id number]; appt 02/11 Determination of erythrocyte mean corpuscular volume (MCV)on 02-04-2022 MCV (RBC) [Entitic vol] 102.5 fL 81-99 [facility] Work Phone: Hematocrit Auto (Bld) [Volum e fraction]on 02-04-2022 Hematocrit (Bld) [Volume fraction] 41.1 % 37-47 [facility] Work Phone: Laboratory - Chemistry and C hemistry - challengeon 02-04-2022 CO2 [Moles/Vol] 26.0 mmol/L 21.0-32.0 [facility] Work Phone: Magnesium [Mass/Vol] 2.4 mg/dL 1.6-2.6 [facility] Work Phone: Urea nitrogen/Creatinine [Mass ratio] 35.6 mg/mg 10-20 [facility] Work Phone: Laboratory - Hematology and Cell countson 02-04-2022 Erythrocyte distribution width (RBC) [Entitic vol] 49.2 fL 35.1-43.9 [facility] Work Phone: Erythrocyte distribution width (RBC) [Ratio] 13.0 % 11.6-14.6 [facility] Work Phone: MCH (RBC) [Entitic mass] 32.9 pg 27.0-32.0 [facility] Work Phone: MCHC Auto (RBC) [Mass/Vol]on 02-04-2022 MCHC (RBC) [Mass/Vol] 32.1 g/dL 32-36 [facility] Work Phone: METABOLIC PANEL, COMPREHENSI VE ([phone])Ordered By: Ore Crusher on 02-04-2022 Albumin [Mass/Vol] 4.6 g/dL Normal 3.7-4.7 [facility]; [facility] Work Phone: Comment on above: PATIENT NOT FASTINGP ERFORMED BY: CB [facility] Doxxmu3562 [address] RoadDublin [place] [id number] Albumin/Globulin [Mass ratio] 2.0 {ratio} Normal 1.2-2.2 [facility]; [facility] Work Phone: Comment on above: PATIENT NOT FASTINGP ERFORMED BY: CB [facility] Zmlzsn3698 [address] RoadDublin [place] [id number] ALP [Catalytic activity/Vol] 51 U/L Normal 44-121 [facility]; [facility] Work Phone: Comment on above: PATIENT NOT FASTINGP ERFORMED BY: CB [facility] Mmjvqg7862 [address] RoadDublin [place] [id number] ALT [Catalytic activity/Vol] 20 U/L Normal 0-32 [facility]; [facility] Work Phone: Comment on above: PATIENT NOT FASTINGP ERFORMED BY: CB [facility] Wungyb6452 [address] RoadDublin [place] [id number] AST [Catalytic activity/Vol] 20 U/L Normal 0-40 [facility]; [facility] Work Phone: Comment on above: PATIENT NOT FASTINGP ERFORMED BY: CB [facility] Abdzog9587 [address] RoadDublin [place] [id number] Bilirubin [Mass/Vol] 0.3 mg/dL Normal 0.0-1.2 [facility]; [facility] Work Phone: Comment on above: PATIENT NOT FASTINGP ERFORMED BY: CB [facility] Ahxxyo2914 [address] RoadDublin [place] [id number] Calcium [Mass/Vol] 9.3 mg/dL Normal 8.7-10.3 [facility]; [facility] Work Phone: Comment on above: PATIENT NOT FASTINGP ERFORMED BY: CB [facility] Zebldk6812 [address] RoadDublin [place] [id number] Chloride [Moles/Vol] 102 mmol/L Normal 96-106 Comp rehensive [facility] Medicine; [facility] Work Phone: Comment on above: PATIENT NOT FASTINGP ERFORMED BY: CB [facility] Ihncny5950 [address] RoadDublin [place] [id number] CO2 [Moles/Vol] 21 mmol/L Normal 20-29 Com[facility]hen [facility]; [facility] Work Phone: Comment on above: PATIENT NOT FASTINGP ERFORMED BY: CB [facility] Dtewrw8982 [address] RoadDublin [place] [id number] Creatinine [Mass/Vol] 0.66 mg/dL Normal 0.57-1.00 [facility]; [facility] Work Phone: Comment on above: PATIENT NOT FASTINGP ERFORMED BY: CB [facility] Kqaqgv0131 [address] RoadDublin [place] [id number] GFR/1.73 sq M.predicted among non-blacks MDRD (S/P/Bld) [Vol rate/Area] 91 mL/min/{1.73_m2} Normal Comprehensiv e [facility]; [facility] Work Phone: Comment on above: PATIENT NOT FASTINGP ERFORMED BY: CB [facility] Ntipvz0153 [address] RoadDublin [place] [id number] Globulin (S) [Mass/Vol] 2.3 g/dL Normal 1.5-4.5 [facility]; [facility] Work Phone: Comment on above: PATIENT NOT FASTINGP ERFORMED BY: CB [facility] Mbxplc3774 [address] RoadDublin [place] [id number] Glucose [Mass/Vol] 90 mg/dL Normal 70-99 [facility]; [facility] Work Phone: Comment on above: PATIENT NOT FASTINGP ERFORMED BY: JESSE Labcoshannan Vsyfzc8640 [address] RoadDublin [place] [id number] Potassium [Moles/Vol] 4.0 mmol/L Normal 3.5-5.2 [facility]; [facility] Work Phone: Comment on above: PATIENT NOT FASTINGP ERFORMED BY: CB [facility] Fpzeia1469 [address] RoadDublin [place] [id number] Protein [Mass/Vol] 6.9 g/dL Normal 6.0-8.5 [facility]; [facility] Work Phone: Comment on above: PATIENT NOT FASTINGP ERFORMED BY: CB [facility] Qtdcpi4956 [address] RoadDublin [place] [id number] Sodium [Moles/Vol] 141 mmol/L Normal 134-144 [facility]; [facility] Work Phone: Comment on above: PATIENT NOT FASTINGP ERFORMED BY: CB [facility] Wogxll6900 [address] RoadDublin [place] [id number] Urea nitrogen [Mass/Vol] 22 mg/dL Normal 8-27 [facility]; [facility] Work Phone: Comment on above: PATIENT NOT FASTINGP ERFORMED BY: CB [facility] Ezmouc9347 [address] RoadDublin [place] [id number] Urea nitrogen/Creatinine [Mass ratio] 33 mg/mg Abnormal 12-28 [facility]; [facility] Work Phone: Comment on above: PATIENT NOT FASTINGP ERFORMED BY: CB [facility] Zsueeo1564 [address] RoadDublin [place] [id number] MICROALB;CREAT RATION, RAND UR ([id number])Ordered By: Ore Crusher on 02-04-2022 Albumin DL <= 20 mg/L (U) [Mass/Vol] 3.6 ug/mL Normal Comprehensiv e [facility]; [facility] Work Phone: Comment on above: PATIENT NOT FASTINGP ERFORMED BY: [employer]6370 Artisoftformerly [facility] [id number] Albumin/Creatinine (U) [Mass ratio] 5 {mg/g_creat} Normal 0-29 [facility]; [facility] Work Phone: Comment on above: Normal: 0 - 29 Moder ately increased: 30 - 300 Severely increased: >300 PATIENT NOT FASTINGP ERFORMED BY: [employer] Ezgocj4091 RogerPressgramformerly [facility] [id number] Creatinine (U) [Mass/Vol] 65.9 mg/dL Normal [facility]; [facility] Work Phone: Comment on above: PATIENT NOT FASTINGP ERFORMED BY: [employer] [place] Fanhuan.comformerly [facility] [id number] No Panel Informationon 02-04 Estimated GFR (MDRD) Amer 109 mL/min >60 [facility] Work Phone: Comment on above: GFR Calc Estimated GFR (MDRD) Non-Af Amer 90 mL/min >60 [facility] Work Phone: Comment on above: Non- GFR Calc Parathyroid Hormone (Intact) 76.1 pg/mL 18.4-80.1 [facility] Work Phone: Urine Microalbumin/Creatin ine Ratio 9.5 mg/g CRE <30 [facility] Work Phone: Vitamin D 25-Hydroxy 54.4 ng/mL [facility] Work Phone: Comment on above: Vitamin D 25(OH) Sta tus Range Deficiency <20 ng/mL (50nmol/L) Insufficiency 20 - 30 ng/mL (50 - 75 nmol/L) Sufficiency 30 - 100 ng/mL (75 - 250 nmol/L) Toxicity >100 ng/mL (>250 nmol/L) Platelets bldon 02-04-2022 Platelets (Bld) [#/Vol] 327 10*3/uL 150-450 [facility] Work Phone: Serum or plasma albumin reagan urement (mass/volume)on 02-04-2022 Albumin [Mass/Vol] 3.8 g/dL 3.2-5.0 [facility] Work Phone: Serum or plasma calcium reagan urement (mass/volume)on 02-04-2022 Calcium [Mass/Vol] 8.6 mg/dL 8.5-10.1 [facility] Work Phone: Serum or plasma creatinine m easurement (mass/volume)on 02-04-2022 Creatinine [Mass/Vol] 0.68 mg/dL 0.55-1.02 [facility] Work Phone: Comment on above: The validity of the calculated GFR & GFRAA in patients over 70 years has not been determined. Clinical correlation is essential. Serum or plasma urea nitroge n measurement (mass/volume)on 02-04-2022 Urea nitrogen [Mass/Vol] 24 mg/dL 7-18 [facility] Work Phone: TSH (THYROID STIMULATING HOR MARCELINA) ([id number])Ordered By: Ore Crusher on 02-04-2022 TSH Qn 3.030 {uIU/mL} Normal 0.450-4.50 0 [facility]; [facility] Work Phone: Comment on above: PATIENT NOT FASTINGP ERFORMED BY: Hövdinglin6370 [facility] [id number] Thin prep Papanicolaou smear with manual screeningon 02-04-2022 Thin prep Papanicolaou smear with manual screening 7.2 mg/L NO RANGE EST. [facility] Work Phone: URINALYSIS MICROSCOPY ([id number] )Ordered By: Ore Crusher on 02-04-2022 Appearance (U) Clear Normal Comprehens eliz [facility]; [facility] Work Phone: Comment on above: PATIENT NOT FASTINGP ERFORMED BY: [employer] Vjfclt2472 [facility] [id number] Bilirubin Ql (U) Negative Normal Comprehe nsive Internal Medicine; [facility] Work Phone: Comment on above: PATIENT NOT FASTINGP ERFORMED BY: JESSE [facility] Izzqyw5374 [address] RoadDublin [place] [id number] Color (U) Yellow Normal [facility]; [facility] Work Phone: Comment on above: PATIENT NOT FASTINGP ERFORMED BY: JESSE [facility] Nwhpfe1366 [address] RoadDublin [place] [id number] Glucose Ql (U) Negative Normal Comprehens eliz [facility]; [facility] Work Phone: Comment on above: PATIENT NOT FASTINGP ERFORMED BY: JESES [facility] Ibattj6189 [address] RoadDublin [place] [id number] Hemoglobin Ql (U) Negative Normal Compreh ensive [facility] Medicine; [facility] Work Phone: Comment on above: PATIENT NOT FASTINGP ERFORMED BY: JESSE [facility] Leotto5542 [address] RoadDublin [place] [id number] Ketones Ql (U) Negative Normal Comprehens eliz [facility]; [facility] Work Phone: Comment on above: PATIENT NOT FASTINGP ERFORMED BY: JESSE [facility] Elmqpg1533 [address] RoadDublin [place] [id number] Leukocyte esterase Test strip Ql (U) Negative Normal [facility]; [facility] Work Phone: Comment on above: PATIENT NOT FASTINGP ERFORMED BY: JESSE [facility] Csvcao9050 [address] RoadDublin [place] [id number] Microscopic observation LM Nom (Urine sed) MICRON Normal [facility]; [facility] Work Phone: Comment on above: Microscopic follows if indicated. PATIENT NOT FASTINGP ERFORMED BY: JESSE [facility] Iytloj0253 [address] RoadDublin [place] [id number] Microscopic observation LM Nom (Urine sed) See below: Normal [facility]; [facility] Work Phone: Comment on above: Microscopic was rafael cated and was performed. PATIENT NOT FASTINGP ERFORMED BY: CB [facility] Ammath2699 [address] RoadDublin [place] [id number] Nitrite Ql (U) Negative Normal Comprehens eliz [facility]; [facility] Work Phone: Comment on above: PATIENT NOT FASTINGP ERFORMED BY: JESSE [facility] Jmxhtq6160 [facility] [id number] pH (U) 6.5 [pH] Normal 5.0-7.5 [facility]; [facility] Work Phone: Comment on above: PATIENT NOT FASTINGP ERFORMED BY: CB [facility] Ktmkeg6707 [facility] [id number] Protein Ql (U) Negative Normal Comprehens eliz [facility]; [facility] Work Phone: Comment on above: PATIENT NOT FASTINGP ERFORMED BY: JESSE [facility] Nxrnzw1596 [facility] [id number] Specific gravity (U) [Rel density] 1.017 1 Normal 1.005-1.03 0 [facility]; [facility] Work Phone: Comment on above: PATIENT NOT FASTINGP ERFORMED BY: CB [facility] Jkyagj5537 [facility] [id number] Urobilinogen (U) [Mass/Vol] 0.2 mg/dL Normal 0.2-1.0 [facility]; [facility] Work Phone: Comment on above: PATIENT NOT FASTINGP ERFORMED BY: JESSE [facility] Qwmcbz2808 [facility] [id number] Urine creatinine measurement (mass/volume)on 02-04-2022 Creatinine (U) [Mass/Vol] 75.70 mg/dL NO RANGE EST. [facility] Work Phone: INHOUSE COVID 19 (ONLY) RAPI D (13349)on 11-07-2021 SARS-CoV-2 (COVID-19) RNA ROSA MARIA+probe Ql (Unsp spec) Positive Normal [facility]; [facility] Work Phone: HEPATITIS C ANTIBODY ([id number]) Ordered By: Ore Crusher on 01-29-2021 HCV Ab Signal/Cutoff IA [Rel units/Vol] {ratio} Normal 0.0-0.9 [facility]; [facility] Work Phone: Comment on above: Negative: < 0.8 Inde terminate: 0.8 - 0.9 Positive: > 0.9 . The CDC recommends that a positive HCV antibody result be followed up with a HCV Nucleic Acid Amplification test (322428). PATIENT NOT FASTINGP ERFORMED BY: ScanSocialformerly [facility] [id number] CALCIFEDIOL ([id number])Ordered B y: Ore Crusher on 01-10-2021 25-hydroxyvitamin D [Mass/Vol] 57.3 ng/mL Normal 30.0-100.0 [facility]; [facility] Work Phone: Comment on above: Vitamin D deficiency has been defined by the [employer] of[employer] and an Endocrine Society practice guideline as alevel of serum 25-OH vitamin D less than 20 ng/mL (1,2).The Endocrine Society went on to further define vitamin Dinsufficiency as a level between 21 and 29 ng/mL (2).1. IOM ([employer]). 2010. Dietary reference intakes for calcium and D. [place]: The National Academies Press.2. Chavez MF, Brian NC, Nakul HARE, et al. Evaluation, treatment, and prevention of vitamin D deficiency: an Endocrine Society clinical practice guideline. JCEM. 2010; 96(7):1911-30. PATIENT WAS FASTINGP ERFORMED BY: [place] [employer]6370 Artisoftformerly [facility] [id number] CBC W/AUTO DIFF WBC (11848)O rdered By: Ore Crusher on 01-10-2021 Basophils (Bld) [#/Vol] 0.1 10*3/uL Normal 0.0-0.2 [facility]; [facility] Work Phone: Comment on above: PATIENT WAS FASTINGP ERFORMED BY: ScanSocialformerly [facility] [id number]; ov 11/8 Basophils/100 WBC (Bld) 1 % Normal [facility]; [facility] Work Phone: Comment on above: PATIENT WAS FASTINGP ERFORMED BY: ScanSocialin [place] [id number]; ov 11/8 Eosinophils (Bld) [#/Vol] 0.2 10*3/uL Normal 0.0-0.4 [facility]; [facility] Work Phone: Comment on above: PATIENT WAS FASTINGP ERFORMED BY: CB [facility] Njceed5392 [address] RoadDublin [place] [id number]; ov 11/8 Eosinophils/100 WBC (Bld) 3 % Normal [facility]; [facility] Work Phone: Comment on above: PATIENT WAS FASTINGP ERFORMED BY: CB [facility] Psitpi3118 [address] RoadDublin [place] [id number]; ov 11/8 Erythrocyte distribution width (RBC) [Ratio] 12.2 % Normal 11.7-15.4 [facility]; [facility] Work Phone: Comment on above: PATIENT WAS FASTINGP ERFORMED BY: CB [facility] Enkrgz0338 Roger RoadQuorum Healthin [place] [id number]; ov 11/8 Hematocrit (Bld) [Volume fraction] 38.7 % Normal 34.0-46.6 [facility]; [facility] Work Phone: Comment on above: PATIENT WAS FASTINGP ERFORMED BY: CB [facility] Nbkezs9080 [address] Roadblin [place] [id number]; ov 11/8 Hemoglobin (Bld) [Mass/Vol] 13.1 g/dL Normal 11.1-15.9 [facility]; [facility] Work Phone: Comment on above: PATIENT WAS FASTINGP ERFORMED BY: CB [facility] Qttpdd8975 [address] RoadDublin [place] [id number]; ov 11/8 Immature granulocytes (Bld) [#/Vol] 0.0 10*3/uL Normal 0.0-0.1 [facility]; [facility] Work Phone: Comment on above: PATIENT WAS FASTINGP ERFORMED BY: CB [facility] Gjjpjs8355 [address] RoadDublin [place] [id number]; ov 11/8 Immature granulocytes/100 WBC (Bld) 0 % Normal [facility]; [facility] Work Phone: Comment on above: PATIENT WAS FASTINGP ERFORMED BY: CB [facility] Aqrajq6273 [address] RoadDublin [place] [id number]; ov 11/8 Lymphocytes (Bld) [#/Vol] 1.4 10*3/uL Normal 0.7-3.1 [facility]; [facility] Work Phone: Comment on above: PATIENT WAS FASTINGP ERFORMED BY: CB [facility] Vwvhld2359 [address] RoadDublin [place] [id number]; ov 11/8 Lymphocytes/100 WBC (Bld) 18 % Normal [facility]; [facility] Work Phone: Comment on above: PATIENT WAS FASTINGP ERFORMED BY: CB [facility] Uqyuqo5035 [address] RoadDublin [place] [id number]; ov 11 MCH (RBC) [Entitic mass] 33.3 pg Abnormal 26.6-33.0 [facility]; [facility] Work Phone: Comment on above: PATIENT WAS FASTINGP ERFORMED BY: CB [facility] Pvuosr9694 [address] RoadDublin [place] [id number]; ov 118 MCHC (RBC) [Mass/Vol] 33.9 g/dL Normal 31.5-35.7 [facility]; [facility] Work Phone: Comment on above: PATIENT WAS FASTINGP ERFORMED BY: CB [facility] Xhjpis9371 [address] Roadblin [place] [id number]; ov 11/8 MCV (RBC) [Entitic vol] 99 fL Abnormal 79-97 [facility]; [facility] Work Phone: Comment on above: PATIENT WAS FASTINGP ERFORMED BY: CB [facility] Arshig0649 [address] RoadDublin [place] [id number]; ov 11/8 Monocytes (Bld) [#/Vol] 0.7 10*3/uL Normal 0.1-0.9 [facility]; [facility] Work Phone: Comment on above: PATIENT WAS FASTINGP ERFORMED BY: CB [facility] Mkpwij9219 [address] RoadDublin [place] [id number]; ov 11/8 Monocytes/100 WBC (Bld) 9 % Normal [facility]; [facility] Work Phone: Comment on above: PATIENT WAS FASTINGP ERFORMED BY: CB [facility] Jnxjxh3404 [address] RoadDublin [place] [id number]; ov 11/8 Neutrophils (Bld) [#/Vol] 5.2 10*3/uL Normal 1.4-7.0 [facility]; [facility] Work Phone: Comment on above: PATIENT WAS FASTINGP ERFORMED BY: CB [facility] Xxtjnt0920 [address] RoadDublin [place] [id number]; ov 11/8 Neutrophils/100 WBC (Bld) 69 % Normal [facility]; [facility] Work Phone: Comment on above: PATIENT WAS FASTINGP ERFORMED BY: CB [facility] Dnqmsf9797 [address] RoadDublin [place] [id number]; ov 11/8 Platelets (Bld) [#/Vol] 311 10*3/uL Normal 150-450 [facility]; [facility] Work Phone: Comment on above: PATIENT WAS FASTINGP ERFORMED BY: CB [facility] Bgprok6589 [address] RoadDublin [place] [id number]; ov 11/8 RBC (Bld) [#/Vol] 3.93 10*6/uL Normal 3.77-5.28 Compr ehensive Internal Medicine; [facility] Work Phone: Comment on above: PATIENT WAS FASTINGP ERFORMED BY: CB [facility] Joomvj3290 [address] RoadDublin [place] [id number]; ov 11/8 WBC (Bld) [#/Vol] 7.6 10*3/uL Normal 3.4-10.8 Compre [facility]; [facility] Work Phone: Comment on above: PATIENT WAS FASTINGP ERFORMED BY: CB [facility] Tgmbvg1725 [address] RoadDublin [place] [id number]; ov 01/29 LIPID PANEL (71388)Ordered B y: Ore Crusher on 01-10-2021 Cholesterol [Mass/Vol] 143 mg/dL Normal 100-199 [facility]; [facility] Work Phone: Comment on above: PATIENT WAS FASTINGP ERFORMED BY: JESSE LabCoshannan Ktgxjo7237 [address] RoadDublin [place] [id number] Cholesterol in HDL [Mass/Vol] 59 mg/dL Normal [facility]; [facility] Work Phone: Comment on above: PATIENT WAS FASTINGP ERFORMED BY: JESSE [facility] Iysqeu6478 [address] RoadDublin [place] [id number] Triglyceride [Mass/Vol] 102 mg/dL Normal 0-149 [facility]; [facility] Work Phone: Comment on above: PATIENT WAS FASTINGP ERFORMED BY: JESSE LabChon RodriguezKckmtf6205 [address] RoadDublin [place] [id number] LIPID PANEL (08954) 19 mg/dL Normal 5-40 Compr ensive [facility]; [facility] Work Phone: Comment on above: PATIENT WAS FASTINGP ERFORMED BY: JESSE LabCoshannan Jalbdk8925 [address] RoadDublin [place] [id number] LIPID PANEL (82441) 65 mg/dL Normal 0-99 Compr ensive [facility]; [facility] Work Phone: Comment on above: PATIENT WAS FASTINGP ERFORMED BY: JESSE [facility] Kqdhkq3725 [address] RoadDublin [place] [id number] LIPID PANEL (08514) 1.1 {ratio} Normal 0.0-3.2 Comp [facility]erensive [facility]; [facility] Work Phone: Comment on above: LDL/HDL Ratio Men Wo men 1/2 Avg.Risk 1.0 1.5 Avg.Risk 3.6 3.2 2X Avg.Risk 6.2 5.0 3X Avg.Risk 8.0 6.1 PATIENT WAS FASTINGP ERFORMED BY: JESSE [facility] Svkdor2746 [address] RoadDublin [place] [id number] METABOLIC PANEL, COMPREHENSI VE (89711)Ordered By: Ore Crusher on 01-10-2021 Albumin [Mass/Vol] 4.5 g/dL Normal 3.7-4.7 [facility] Internal [facility]; [facility] Work Phone: Comment on above: PATIENT WAS FASTINGP ERFORMED BY: CB [facility] Lstlgm4327 [address] RoadDublin [place] [id number] Albumin/Globulin [Mass ratio] 1.7 {ratio} Normal 1.2-2.2 [facility]; [facility] Work Phone: Comment on above: PATIENT WAS FASTINGP ERFORMED BY: CB [facility] Sdufki5631 [address] RoadDublin [place] [id number] ALP [Catalytic activity/Vol] 48 U/L Normal 44-121 [facility]; [facility] Work Phone: Comment on above: Please note refere nce interval change PATIENT WAS FASTINGP ERFORMED BY: CB [facility] Qyigie1751 [address] RoadDublin [place] [id number] ALT [Catalytic activity/Vol] 20 U/L Normal 0-32 [facility]; [facility] Work Phone: Comment on above: PATIENT WAS FASTINGP ERFORMED BY: CB [facility] Hpamwo7410 [address] RoadDublin [place] [id number] AST [Catalytic activity/Vol] 18 U/L Normal 0-40 [facility]; [facility] Work Phone: Comment on above: PATIENT WAS FASTINGP ERFORMED BY: CB [facility] Oymhwi9026 [address] RoadDublin [place] [id number] Bilirubin [Mass/Vol] 0.5 mg/dL Normal 0.0-1.2 [facility]; [facility] Work Phone: Comment on above: PATIENT WAS FASTINGP ERFORMED BY: CB [facility] Uavrpj4728 [address] RoadDublin [place] [id number] Calcium [Mass/Vol] 10.0 mg/dL Normal 8.7-10.3 [facility]; [facility] Work Phone: Comment on above: PATIENT WAS FASTINGP ERFORMED BY: JESSE Razo6370 [facility] [id number] Chloride [Moles/Vol] 101 mmol/L Normal 96-106 Comp rehensive Internal Medicine; [facility] Work Phone: Comment on above: PATIENT WAS FASTINGP ERFORMED BY: JESSE Rodriguezlin6370 [facility] [id number] CO2 [Moles/Vol] 23 mmol/L Normal 20-29 [facility]prehadvent[facility]; [facility] Work Phone: Comment on above: PATIENT WAS FASTINGP ERFORMED BY: JESSE Razo6370 [facility] [id number] Creatinine [Mass/Vol] 0.77 mg/dL Normal 0.57-1.00 [facility]; [facility] Work Phone: Comment on above: PATIENT WAS FASTINGP ERFORMED BY: JESSE Rodriguezlin6370 [facility] [id number] GFR/1.73 sq M.predicted among blacks CKD-EPI (S/P/Bld) [Vol rate/Area] 88 mL/min/1.73 Normal [facility]; [facility] Work Phone: Comment on above: In accordance with recommendations from the NKF-ASN Task force, [facility] is in the process of updating its eGFR calculation to the 2020 CKD-EPI creatinine equation that estimates kidney function without a race variable. PATIENT WAS FASTINGP ERFORMED BY: JESSE Rodriguezlin6370 [facility] [id number] GFR/1.73 sq M.predicted among non-blacks CKD-EPI (S/P/Bld) [Vol rate/Area] 76 mL/min/1.73 Normal [facility]; [facility] Work Phone: Comment on above: PATIENT WAS FASTINGP ERFORMED BY: JESSE Rodriguezlin6370 [facility] [id number] Globulin (S) [Mass/Vol] 2.6 g/dL Normal 1.5-4.5 [facility]; [facility] Work Phone: Comment on above: PATIENT WAS FASTINGP ERFORMED BY: JESSE [facility] Lnjumn8825 [address] RoadDublin [place] [id number] Glucose [Mass/Vol] 102 mg/dL Abnormal 65-99 [facility]; [facility] Work Phone: Comment on above: PATIENT WAS FASTINGP ERFORMED BY: CB [facility] Afndsb0289 [address] RoadDublin [place] [id number] Potassium [Moles/Vol] 4.5 mmol/L Normal 3.5-5.2 [facility]; [facility] Work Phone: Comment on above: PATIENT WAS FASTINGP ERFORMED BY: JESSE [facility] Gualsy1607 [address] RoadDublin [place] [id number] Protein [Mass/Vol] 7.1 g/dL Normal 6.0-8.5 [facility]; [facility] Work Phone: Comment on above: PATIENT WAS FASTINGP ERFORMED BY: JESSE [facility] Yagaue8152 [address] RoadDublin [place] [id number] Sodium [Moles/Vol] 139 mmol/L Normal 134-144 [facility]; [facility] Work Phone: Comment on above: PATIENT WAS FASTINGP ERFORMED BY: JESSE [facility] Kbyscw4447 [address] RoadDublin [place] [id number] Urea nitrogen [Mass/Vol] 22 mg/dL Normal 8-27 [facility]; [facility] Work Phone: Comment on above: PATIENT WAS FASTINGP ERFORMED BY: CB [facility] Rcolbu8060 [address] RoadDublin [place] [id number] Urea nitrogen/Creatinine [Mass ratio] 29 mg/mg Abnormal 12-28 [facility]; [facility] Work Phone: Comment on above: PATIENT WAS FASTINGP ERFORMED BY: JESSE [facility] Rsoswb3767 [address] RoadDublin [place] [id number] MICROALBUMINOrdered By: Syst em Local Flatbed Driver on 01-10-2021 Albumin DL <= 20 mg/L (U) [Mass/Vol] mg/dL Normal Comprehensiv e [facility]; [facility] Work Phone: Comment on above: Verified by repeat analysis PATIENT WAS FASTINGP ERFORMED BY: JESSE LabEkotrope Vmbuhq9190 [facility] [place] [id number] Albumin/Creatinine (U) [Mass ratio] <9 Normal 0-29 [facility]; [facility] Work Phone: Comment on above: Normal: 0 - 29 Moder ately increased: 30 - 300 Severely increased: >300 PATIENT WAS FASTINGP ERFORMED BY: LabCo Ucymya8577 [facility] [place] [id number] Creatinine (U) [Mass/Vol] 33.4 mg/dL Normal [facility]; [facility] Work Phone: Comment on above: PATIENT WAS FASTINGP ERFORMED BY: LabEkotrope Dwsqhl3582 [facility] [id number] T3, FREE (TRIDOTHYRONINE) ([id number] [id number])Ordered By: Ore Crusher on 01-10-2021 Free T3 [Mass/Vol] 3.6 pg/mL Normal 2.0-4.4 [facility]; [facility] Work Phone: Comment on above: PATIENT WAS FASTINGP ERFORMED BY: LabEkotrope Juwvmf4656 [facility] [id number] T4, FREE (THYROXINE) ([id number]) Ordered By: Ore Crusher on 01-10-2021 Free T4 [Mass/Vol] 1.28 ng/dL Normal 0.82-1.77 [facility]; [facility] Work Phone: Comment on above: PATIENT WAS FASTINGP ERFORMED BY: LabEkotrope Gwxmnt6292 [facility] [id number] TSH ([id number])Ordered By: [employer] Local Flatbed Driver on 01-10-2021 TSH Qn 4.230 {uIU/mL} Normal 0.450-4.50 0 [facility]; [facility] Work Phone: Comment on above: PATIENT WAS FASTINGP ERFORMED BY: JESSE DeniseChon RodriguezOjgydb9776 Roger RoadDublin [place] [id number] URINALYSIS, W/ MICRO ([id number]) Ordered By: Ore Crusher on 01-10-2021 Appearance (U) Clear Normal Comprehens eliz Internal Medicine; [facility] Work Phone: Comment on above: PATIENT WAS FASTINGP ERFORMED BY: JESSE Rodriguezlin6370 [address] RoadDublin [place] [id number] Bilirubin Ql (U) Negative Normal Comprehe nsive Internal Medicine; [facility] Work Phone: Comment on above: PATIENT WAS FASTINGP ERFORMED BY: JESSE Rodriguezlin6370 [address] RoadDublin [place] [id number] Color (U) Yellow Normal [facility]; [facility] Work Phone: Comment on above: PATIENT WAS FASTINGP ERFORMED BY: JESSE Rodriguezlin6370 [address] RoadDublin [place] [id number] Glucose Ql (U) Negative Normal Comprehens eliz [facility]; [facility] Work Phone: Comment on above: PATIENT WAS FASTINGP ERFORMED BY: JESSE Rodriguezlin6370 [address] RoadDublin [place] [id number] Hemoglobin Ql (U) Negative Normal Compreh ensive Internal Medicine; [facility] Work Phone: Comment on above: PATIENT WAS FASTINGP ERFORMED BY: JESSE Rodriguezlin6370 [address] RoadDublin [place] [id number] Ketones Ql (U) Negative Normal Comprehens eliz [facility] Medicine; [facility] Work Phone: Comment on above: PATIENT WAS FASTINGP ERFORMED BY: JESSE DeniseChon RodriguezQsjkgn0161 Roger RoadDublin [place] [id number] Leukocyte esterase Test strip Ql (U) Negative Normal [facility]; [facility] Work Phone: Comment on above: PATIENT WAS FASTINGP ERFORMED BY: JESSE Rodriguezlin6370 [address] RoadDublin [place] [id number] Microscopic observation LM Nom (Urine sed) MICRON Normal [facility]; [facility] Work Phone: Comment on above: Microscopic follows if indicated. PATIENT WAS FASTINGP ERFORMED BY: JESSE LabChon Razo6370 [address] RoadDublin [place] [id number] Microscopic observation LM Nom (Urine sed) See below: Normal [facility]; [facility] Work Phone: Comment on above: Microscopic was rafael cated and was performed. PATIENT WAS FASTINGP ERFORMED BY: JESSE LabAlinerp Yghfuk2408 [address] RoadDublin [place] [id number] Nitrite Ql (U) Negative Normal Comprehens eliz Internal Medicine; [facility] Work Phone: Comment on above: PATIENT WAS FASTINGP ERFORMED BY: JESSE Diego Rodriguezlin6370 [address] RoadDublin [place] [id number] pH (U) 7.0 [pH] Normal 5.0-7.5 [facility]; [facility] Work Phone: Comment on above: PATIENT WAS FASTINGP ERFORMED BY: JESSE LabCo Uboqwi0568 Roger RoadDublin [place] [id number] Protein Ql (U) Negative Normal Comprehens eliz Internal Medicine; [facility] Work Phone: Comment on above: PATIENT WAS FASTINGP ERFORMED BY: JESSE Sparkle Vwtjzq2740 [address] [facility]in [place] [id number] Specific gravity (U) [Rel density] 1.010 1 Normal 1.005-1.03 0 [facility]; [facility] Work Phone: Comment on above: PATIENT WAS FASTINGP ERFORMED BY: JESSE [facility] Pzeqmw5969 Roger RoadDublin [place] [id number] Urobilinogen (U) [Mass/Vol] 0.2 mg/dL Normal 0.2-1.0 [facility]; [facility] Work Phone: Comment on above: PATIENT WAS FASTINGP ERFORMED BY: [facility] Prfszb3912 Roger RoadDublin [place] [id number] Metabolic Panel, Basic (8004 8)Ordered By: Ore Crusher on 06-27-2020 Calcium [Mass/Vol] 9.3 mg/dL Normal 8.7-10.3 [facility]; [facility] Work Phone: Comment on above: to do early june; P ATIENT NOT FASTINGPERFORMED BY: CB LabCo Ovkkcm8184 [facility] [id number] Chloride [Moles/Vol] 104 mmol/L Normal 96-106 Comp rehensive Internal Medicine; [facility] Work Phone: Comment on above: to do early june; P ATIENT NOT FASTINGPERFORMED BY: CB [facility] Kcmwqu8430 [facility] [id number] CO2 [Moles/Vol] 23 mmol/L Normal 20-29 [facility] Internal Medicine; [facility] Work Phone: Comment on above: to do early june; P ATIENT NOT FASTINGPERFORMED BY: CB LabEkotroperp Yidbvw0610 [facility]efiedNov[facility] [id number] Creatinine [Mass/Vol] 0.63 mg/dL Normal 0.57-1.00 [facility]; [facility] Work Phone: Comment on above: to do early june; P ATIENT NOT FASTINGPERFORMED BY: CB [facility] Smzifc1968 [facility] [id number] GFR/1.73 sq M predicted among blacks CKD-EPI (S/P/Bld) [Vol rate/Area] 102 mL/min/1.73 Normal [facility]; [facility] Work Phone: Comment on above: to do early june; P ATIENT NOT FASTINGPERFORMED BY: LabCo Ptcbdx3642 [facility] [id number] GFR/1.73 sq M predicted among non-blacks CKD-EPI (S/P/Bld) [Vol rate/Area] 89 mL/min/1.73 Normal [facility]; [facility] Work Phone: Comment on above: to do early june; P ATIENT NOT FASTINGPERFORMED BY: CB [facility] Wgmklv2453 [facility] [id number] Glucose [Mass/Vol] 79 mg/dL Normal 65-99 [facility] Internal Medicine; [facility] Work Phone: Comment on above: to do early june; P ATIENT NOT FASTINGPERFORMED BY: [facility]6370 [facility] [id number] Potassium [Moles/Vol] 4.0 mmol/L Normal 3.5-5.2 [facility]; [facility] Work Phone: Comment on above: to do early june; P ATIENT NOT FASTINGPERFORMED BY: LabCarla [place] [id number] [facility] [id number] Sodium [Moles/Vol] 140 mmol/L Normal 134-144 [facility]; [facility] Work Phone: Comment on above: to do early june; P ATIENT NOT FASTINGPERFORMED BY: [place] [id number] [facility] [id number] Urea nitrogen [Mass/Vol] 18 mg/dL Normal 8-27 [facility]; [facility] Work Phone: Comment on above: to do early june; P ATIENT NOT FASTINGPERFORMED BY: [facility]6370 [facility] [id number] Urea nitrogen/Creatinine [Mass ratio] 29 mg/mg Abnormal 12-28 [facility]; [facility] Work Phone: Comment on above: to do early june; P ATIENT NOT FASTINGPERFORMED BY: LabV[facility] Center6370 [facility] [id number] CATECHOLAMINES TOTAL, URINE (85147)Ordered By: Ore Crusher on 06-12-2020 Dopamine (24H U) [Mass/Time] 141 {ug/24_hr} Normal 0-510 [facility]; [facility] Work Phone: Comment on above: Test(s) 671948-Mxpyr phrine, Urine; 989583-Cavnerjujxlyau, Ur; 770421-Pyjegcne, Urine; 841521-Bumpitfcrvwwyeq, Ur; 815522-Nhfveegrrkoq, Urwas developed and its performance characteristics determinedby [facility]. It has not been cleared or approved by the Foodand Drug Administration.PATIENT NOT FASTINGPERFORMED BY: [address] [id number] Information: START 06/12/20@717AM Dopamine (U) [Mass/Vol] 83 ug/L Normal [facility]; [facility] Work Phone: Comment on above: Test(s) 802852-Fxhkg phrine, Urine; 859087-Dqdydqweclzlqs, Ur; 019026-Gexznuin, Urine; 499072-Owgwepjqulvklse, Ur; 009327-Phdffnjzcvyt, Urwas developed and its performance characteristics determinedby [facility]. It has not been cleared or approved by the Foodand Drug Administration.PATIENT NOT FASTINGPERFORMED BY: [address] [id number] Information: START 06/12/20@717AM Epinephrine (24H U) [Mass/Time] 2 {ug/24_hr} Normal 0-20 [facility]; [facility] Work Phone: Comment on above: Test(s) 261142-Yzpiw phrine, Urine; 866838-Ejserozqteecln, Ur; 256594-Zrrikzbx, Urine; 041241-Svglfdpyqvwyfoj, Ur; 664990-Ageykuymduyq, Urwas developed and its performance characteristics determinedby [facility]. It has not been cleared or approved by the Foodand Drug Administration.PATIENT NOT FASTINGPERFORMED BY: Lab[address] [id number] Information: START 06/12/20@717AM Epinephrine (U) [Mass/Vol] 1 ug/L Normal [facility]; [facility] Work Phone: Comment on above: Test(s) 718134-Lzijn phrine, Urine; 834673-Ntugnpuewfzzyp, Ur; 878846-Qlqfhfrn, Urine; 878188-Oswbuokbcsdzupm, Ur; 981642-Qxdnzoxkziiq, Urwas developed and its performance characteristics determinedby [facility]. It has not been cleared or approved by the Foodand Drug Administration.PATIENT NOT FASTINGPERFORMED BY: LabCo[address] [id number] Information: START 06/12/20@717AM Norepinephrine (24H U) [Mass/Time] 56 {ug/24_hr} Normal 0-135 [facility]; [facility] Work Phone: Comment on above: Test(s) 050669-Fxxic phrine, Urine; 127511-Wfkeaizjckvguj, Ur; 828202-Olggvcov, Urine; 428695-Rqugrhkdlwaolaw, Ur; 884939-Uzpvngdvtsdx, Urwas developed and its performance characteristics determinedby [facility]. It has not been cleared or approved by the Foodand Drug Administration.PATIENT NOT FASTINGPERFORMED BY: LabCo[address] [id number] Information: START 06/12/20@717AM Norepinephrine (U) [Mass/Vol] 33 ug/L Normal [facility]; [facility] Work Phone: Comment on above: Test(s) 123638-Zvpxm phrine, Urine; 596714-Oayafbbfljmsnf, Ur; 305828-Kdbxtcop, Urine; 662644-Qrmkieqopiykapz, Ur; 458496-Wbwrkuygcukq, Urwas developed and its performance characteristics determinedby [facility]. It has not been cleared or approved by the Foodand Drug Administration.PATIENT NOT FASTINGPERFORMED BY: LabCo[address] [id number] Information: START 06/12/20@717AM METANEPHRINES - URINE (59808 )Ordered By: Ore Crusher on 06-12-2020 Metanephrine (24H U) [Mass/Time] 88 {ug/24_hr} Normal 36-209 [facility]; [facility] Work Phone: Comment on above: Test(s) 835471-Cdvum phrine, Urine; 474392-Rkpgowuxwilhvn, Ur; 103985-Fjnndubf, Urine; 790851-Wlhnmibybqpfeen, Ur; 086482-Bnaossmdkfki, Urwas developed and its performance characteristics determinedby [facility]. It has not been cleared or approved by the Foodand Drug Administration.PATIENT NOT FASTINGPERFORMED BY: [employer] [address] [id number] Metanephrines (24H U) [Mass/Vol] 52 ug/L Normal [facility]; [facility] Work Phone: Comment on above: Test(s) 191777-Hiofc phrine, Urine; 013384-Lxhujupyzheaho, Ur; 810600-Cohdfzko, Urine; 301406-Tekbexsmfxbxife, Ur; 327399-Schtwlyhoxbo, Urwas developed and its performance characteristics determinedby [facility]. It has not been cleared or approved by the Foodand Drug Administration.PATIENT NOT FASTINGPERFORMED BY: [employer] [address] [id number] Normetanephrine (24H U) [Mass/Time] 354 {ug/24_hr} Normal 131-612 [facility]; [facility] Work Phone: Comment on above: Test(s) 350974-Uczqv phrine, Urine; 884664-Tmohufscybmwfp, Ur; 526486-Esrrpian, Urine; 939631-Lzmevdhlmzryljp, Ur; 289532-Aobmfikgtlsc, Urwas developed and its performance characteristics determinedby [facility]. It has not been cleared or approved by the Foodand Drug Administration.PATIENT NOT FASTINGPERFORMED BY: [employer] [address] [id number] Normetanephrine (24H U) [Mass/Vol] 208 ug/L Normal [facility]; [facility] Work Phone: Comment on above: Test(s) 709292-Puudo phrine, Urine; 374427-Npejhvpvfpcahs, Ur; 186426-Nfwfbjoi, Urine; 922257-Idzzhufjyaadrna, Ur; 563532-Ivawdkzeugzx, Urwas developed and its performance characteristics determinedby [facility]. It has not been cleared or approved by the Foodand Drug Administration.PATIENT NOT FASTINGPERFORMED BY: [employer] [address] [id number] URINE VMA (51988)Ordered By: Ore Crusher on 06-12-2020 Vanillylmandelate (24H U) [Mass/Time] 4.9 {mg/24_hr} Normal 0.0-7.5 Comprehensiv e Internal Medicine; [facility] Work Phone: Comment on above: Test(s) 167722-Ltdyj phrine, Urine; 123424-Uxrtvsmfqpojjf, Ur; 787206-Fzchnvmo, Urine; 696166-Gqpxpdnutmfgvma, Ur; 718272-Qqkoxuklytea, Urwas developed and its performance characteristics determinedby LabPhaseBio Pharmaceuticals. It has not been cleared or approved by the Foodand Drug Administration.PATIENT NOT FASTINGPERFORMED BY: [employer] [address] [id number] Vanillylmandelate (U) [Mass/Vol] 2.9 mg/L Normal [facility]; [facility] Work Phone: Comment on above: This test was develo ped and its performance characteristicsdetermined by [employer]. It has not been cleared or approvedby the Food and Drug Administration. Test(s) 981722-Vhdqc phrine, Urine; 291436-Mfzpudjkwqwsln, Ur; 297504-Mwthhijb, Urine; 711847-Kqismbzcafakwbn, Ur; 942607-Egtrcypetwej, Urwas developed and its performance characteristics determinedby [employer]. It has not been cleared or approved by the Foodand Drug Administration.PATIENT NOT FASTINGPERFORMED BY: [employer] [address] [id number] ALDOSTERONE (36547)Ordered B y: Ore Crusher on 06-07-2020 Aldosterone [Mass/Vol] 3.1 ng/dL Normal 0.0-30.0 [facility]; [facility] Work Phone: Comment on above: Test(s) 539417-Zdsnu terone; 370946-Dopam Activity, Plasmawas developed and its performance characteristics determinedby [employer]. It has not been cleared or approved by the Foodand Drug Administration.PATIENT NOT FASTINGPERFORMED BY: [employer] [address] [id number] RENIN (07245)Ordered By: Grzegorz tem Local Flatbed Driver on 06-07-2020 Renin (P) [Catalytic activity/Vol] 0.800 {ng/mL/hr} Normal 0.167-5.38 0 [facility]; [facility] Work Phone: Comment on above: Test(s) 424795-Ubhar terone; 672814-Aancc Activity, Plasmawas developed and its performance characteristics determinedby [employer]. It has not been cleared or approved by the Foodand Drug Administration.PATIENT NOT FASTINGPERFORMED BY: [employer] [id number] CALCIFEDIOL (56846)Ordered B y: Ore Crusher on 12-08-2019 25-Hydroxyvitamin D2+25-Hydroxyvitamin D3 [Mass/Vol] 42.7 ng/mL Normal 30.0-100.0 [facility] Work Phone: Comment on above: Vitamin D deficiency has been defined by the [employer] of[employer] and an Endocrine Society practice guideline as alevel of serum 25-OH vitamin D less than 20 ng/mL (1,2).The Endocrine Society went on to further define vitamin Dinsufficiency as a level between 21 and 29 ng/mL (2).1. IOM ([place]). 2010. Dietary reference intakes for calcium and D. [place]: The National Academies Press.2. Chavez MF, Brian ZAZUETA, Nakul HARE, et al. Evaluation, treatment, and prevention of vitamin D deficiency: an Endocrine Society clinical practice guideline. JCEM. 2010; 96(7):1911-30. PATIENT NOT FASTINGP ERFORMED BY: ARI70 [facility]West[facility] [id number] CBC W/AUTO DIFF WBC (86238)O rdered By: Ore Crusher on 12-08-2019 Basophils (Bld) [#/Vol] 0.1 {x10E3/uL} Normal 0.0-0.2 [facility] Work Phone: Comment on above: PATIENT NOT FASTINGP ERFORMED BY: [employer]6370 [facility] [id number] Basophils (Bld) [#/Vol] 0.1 10*3/uL Normal 0.0-0.2 [facility]; [facility] Work Phone: Comment on above: PATIENT NOT FASTINGP ERFORMED BY: JESSE [facility] Ybtzqn4093 Roger RoadDublin [place] [id number] Basophils/100 WBC (Bld) 1 % Normal [facility] Work Phone: Comment on above: PATIENT NOT FASTINGP ERFORMED BY: CB [facility] Nhnchk0335 [address] RoadDublin [place] [id number] Eosinophils (Bld) [#/Vol] 0.2 {x10E3/uL} Normal 0.0-0.4 [facility] Work Phone: Comment on above: PATIENT NOT FASTINGP ERFORMED BY: CB [facility] Bypjby1716 [address] RoadDublin [place] [id number] Eosinophils (Bld) [#/Vol] 0.2 10*3/uL Normal 0.0-0.4 [facility]; [facility] Work Phone: Comment on above: PATIENT NOT FASTINGP ERFORMED BY: CB [facility] Qvnwcc0762 Roger RoadQuorum Healthin [place] [id number] Eosinophils/100 WBC (Bld) 3 % Normal [facility] Work Phone: Comment on above: PATIENT NOT FASTINGP ERFORMED BY: JESSE LabCoshannan RodriguezQsydjx1811 [facility] [id number] Erythrocyte distribution width (RBC) [Ratio] 12.5 % Normal 11.7-15.4 [facility] Work Phone: Comment on above: PATIENT NOT FASTINGP ERFORMED BY: CB [facility] Uxilla0477 [address] [facility]in [place] [id number] Hematocrit (Bld) [Volume fraction] 39.7 % Normal 34.0-46.6 [facility] Work Phone: Comment on above: PATIENT NOT FASTINGP ERFORMED BY: JESSE [facility] Tegpyx9401 [address] [facility]in [place] [id number] Hemoglobin (Bld) [Mass/Vol] 13.2 g/dL Normal 11.1-15.9 [facility] Work Phone: Comment on above: PATIENT NOT FASTINGP ERFORMED BY: JESSE LabCoshannan RodriguezAzhnad0355 Roger RoadDublin [place] [id number] Immature granulocytes (Bld) [#/Vol] 0.0 {x10E3/uL} Normal 0.0-0.1 [facility] Work Phone: Comment on above: PATIENT NOT FASTINGP ERFORMED BY: JESSE LabCoshannan RodriguezIpmkjk8020 Roger RoadDublin [place] [id number] Immature granulocytes (Bld) [#/Vol] 0.0 10*3/uL Normal 0.0-0.1 [facility]; [facility] Work Phone: Comment on above: PATIENT NOT FASTINGP ERFORMED BY: JESSE LabChon Razo6370 [address] RoadDublin [place] [id number] Immature granulocytes/100 WBC (Bld) 0 % Normal [facility] Work Phone: Comment on above: PATIENT NOT FASTINGP ERFORMED BY: JESSE Razo6370 [address] RoadDublin [place] [id number] Lymphocytes (Bld) [#/Vol] 1.8 {x10E3/uL} Normal 0.7-3.1 [facility] Work Phone: Comment on above: PATIENT NOT FASTINGP ERFORMED BY: JESSE Razo6370 [address] RoadDublin [place] [id number] Lymphocytes (Bld) [#/Vol] 1.8 10*3/uL Normal 0.7-3.1 [facility]; [facility] Work Phone: Comment on above: PATIENT NOT FASTINGP ERFORMED BY: JESSE [facility] Jlgubc5374 [address] RoadDublin [place] [id number] Lymphocytes/100 WBC (Bld) 25 % Normal [facility] Work Phone: Comment on above: PATIENT NOT FASTINGP ERFORMED BY: JESSE Rodriguezlin6370 [address] RoadDublin [place] [id number] MCH (RBC) [Entitic mass] 32.8 pg Normal 26.6-33.0 [facility] Work Phone: Comment on above: PATIENT NOT FASTINGP ERFORMED BY: JESSE [facility] Zhkwai8450 [address] RoadDublin [place] [id number] MCHC (RBC) [Mass/Vol] 33.2 g/dL Normal 31.5-35.7 [facility] Work Phone: Comment on above: PATIENT NOT FASTINGP ERFORMED BY: CB [facility] Oevoaq1322 [address] RoadDublin [place] [id number] MCV (RBC) [Entitic vol] 99 fL Abnormal 79-97 [facility] Work Phone: Comment on above: PATIENT NOT FASTINGP ERFORMED BY: CB [facility] Dhkvxh5378 [address] RoadDublin [place] [id number] Monocytes (Bld) [#/Vol] 0.7 {x10E3/uL} Normal 0.1-0.9 [facility] Work Phone: Comment on above: PATIENT NOT FASTINGP ERFORMED BY: CB [facility] Udilmo4198 [address] RoadDublin [place] [id number] Monocytes (Bld) [#/Vol] 0.7 10*3/uL Normal 0.1-0.9 [facility]; [facility] Work Phone: Comment on above: PATIENT NOT FASTINGP ERFORMED BY: CB [facility] Rswyqn9081 [address] RoadDublin [place] [id number] Monocytes/100 WBC (Bld) 10 % Normal [facility] Work Phone: Comment on above: PATIENT NOT FASTINGP ERFORMED BY: CB [facility] Ywvbvf8017 [address] RoadDublin [place] [id number] Neutrophils (Bld) [#/Vol] 4.4 {x10E3/uL} Normal 1.4-7.0 [facility] Work Phone: Comment on above: PATIENT NOT FASTINGP ERFORMED BY: CB [facility] Bklmoz8806 [address] RoadDublin [place] [id number] Neutrophils (Bld) [#/Vol] 4.4 10*3/uL Normal 1.4-7.0 [facility]; [facility] Work Phone: Comment on above: PATIENT NOT FASTINGP ERFORMED BY: CB [facility] Brypyp7724 [address] RoadDublin [place] [id number] Neutrophils/100 WBC (Bld) 61 % Normal [facility] Work Phone: Comment on above: PATIENT NOT FASTINGP ERFORMED BY: CB [facility] Ubjxav6520 [address] RoadDublin [place] [id number] Platelets (Bld) [#/Vol] 272 {x10E3/uL} Normal 150-450 [facility] Work Phone: Comment on above: PATIENT NOT FASTINGP ERFORMED BY: CB [facility] Cnorvn2677 [address] RoadDublin [place] [id number] Platelets (Bld) [#/Vol] 272 10*3/uL Normal 150-450 [facility]; [facility] Work Phone: Comment on above: PATIENT NOT FASTINGP ERFORMED BY: CB [facility] Vwcmuo5768 [address] RoadDublin [place] [id number] RBC (Bld) [#/Vol] 4.03 {x10E6/uL} Normal 3.77-5.28 [facility] Internal Medicine Work Phone: Comment on above: PATIENT NOT FASTINGP ERFORMED BY: CB [facility] Yewrqo2630 [address] RoadDublin [place] [id number] RBC (Bld) [#/Vol] 4.03 10*6/uL Normal 3.77-5.28 [facility]; [facility] Work Phone: Comment on above: PATIENT NOT FASTINGP ERFORMED BY: CB [facility] Nxjqev6880 [address] RoadDublin [place] [id number] WBC (Bld) [#/Vol] 7.2 {x10E3/uL} Normal 3.4-10.8 [facility] Work Phone: Comment on above: PATIENT NOT FASTINGP ERFORMED BY: CB [facility] Jjgavs9796 [address] RoadDublin [place] [id number] WBC (Bld) [#/Vol] 7.2 10*3/uL Normal 3.4-10.8 [facility]; [facility] Work Phone: Comment on above: PATIENT NOT FASTINGP ERFORMED BY: JESSE [facility] Neqzvo2435 [address] RoadDublin [place] [id number] METABOLIC PANEL, COMPREHENSI VE (68172)Ordered By: Ore Crusher on 12-08-2019 Albumin [Mass/Vol] 4.2 g/dL Normal 3.7-4.7 [facility] Internal Medicine Work Phone: Comment on above: PATIENT NOT FASTINGP ERFORMED BY: CB [facility] Ovoded1521 [address] RoadDublin [place] [id number] Albumin/Globulin [Mass ratio] 1.6 {ratio} Normal 1.2-2.2 [facility] Work Phone: Comment on above: PATIENT NOT FASTINGP ERFORMED BY: CB [facility] Kpxsns1174 [address] RoadDublin [place] [id number] ALP [Catalytic activity/Vol] 51 [iU]/L Normal 39-117 [facility] Work Phone: Comment on above: PATIENT NOT FASTINGP ERFORMED BY: CB [facility] Khckmz2338 [address] RoadDublin [place] [id number] ALP [Catalytic activity/Vol] 51 U/L Normal 39-117 [facility]; [facility] Work Phone: Comment on above: PATIENT NOT FASTINGP ERFORMED BY: CB [facility] Wmibrb7230 [address] RoadDublin [place] [id number] ALT [Catalytic activity/Vol] 16 [iU]/L Normal 0-32 [facility] Work Phone: Comment on above: PATIENT NOT FASTINGP ERFORMED BY: CB [facility] Wmvunr6902 [address] RoadDublin [place] [id number] ALT [Catalytic activity/Vol] 16 U/L Normal 0-32 [facility]; [facility] Work Phone: Comment on above: PATIENT NOT FASTINGP ERFORMED BY: CB [facility] Ndvhzg7682 [address] RoadDublin [place] [id number] AST [Catalytic activity/Vol] 17 [iU]/L Normal 0-40 [facility] Internal Medicine Work Phone: Comment on above: PATIENT NOT FASTINGP ERFORMED BY: CB [facility] Lvdyko4046 [address] RoadDublin [place] [id number] AST [Catalytic activity/Vol] 17 U/L Normal 0-40 [facility]; [facility] Work Phone: Comment on above: PATIENT NOT FASTINGP ERFORMED BY: CB [facility] Zqneaz5793 [address] RoadDublin [place] [id number] Bilirubin [Mass/Vol] 0.4 mg/dL Normal 0.0-1.2 [facility]: Comment on above: PATIENT NOT FASTINGP ERFORMED BY: CB [facility] Mfqtuc1124 [address] RoadDublin [place] [id number] Calcium [Mass/Vol] 9.0 mg/dL Normal 8.7-10.3 [facility] Internal Medicine Work Phone: Comment on above: PATIENT NOT FASTINGP ERFORMED BY: CB [facility] Gpyrjc5491 [address] RoadDublin [place] [id number] Chloride [Moles/Vol] 104 mmol/L Normal 96-106 [facility] Internal Medicine Work Phone: Comment on above: PATIENT NOT FASTINGP ERFORMED BY: CB [facility] Mcvhui4893 [address] RoadDublin [place] [id number] CO2 [Moles/Vol] 24 mmol/L Normal 20-29 [facility] Internal Medicine Work Phone: Comment on above: PATIENT NOT FASTINGP ERFORMED BY: CB [facility] Jqgihh1709 [address] RoadDublin [place] [id number] Creatinine [Mass/Vol] 0.64 mg/dL Normal 0.57-1.00 [facility] Internal Medicine Work Phone: Comment on above: PATIENT NOT FASTINGP ERFORMED BY: CB [facility] Htvffl9059 [address] RoadDublin [place] [id number] GFR/1.73 sq M predicted among blacks CKD-EPI (S/P/Bld) [Vol rate/Area] 102 mL/min/1.73 Normal [facility] Work Phone: Comment on above: PATIENT NOT FASTINGP ERFORMED BY: CB [facility] Mgdwbd4305 [address] RoadDublin [place] [id number] GFR/1.73 sq M predicted among non-blacks CKD-EPI (S/P/Bld) [Vol rate/Area] 89 mL/min/1.73 Normal [facility] Work Phone: Comment on above: PATIENT NOT FASTINGP ERFORMED BY: CB [facility] Shwoqa9993 [address] RoadDublin [place] [id number] Globulin (S) [Mass/Vol] 2.6 g/dL Normal 1.5-4.5 [facility] Work Phone: Comment on above: PATIENT NOT FASTINGP ERFORMED BY: CB [facility] Bnzykf3021 [address] RoadDublin [place] [id number] Glucose [Mass/Vol] 86 mg/dL Normal 65-99 [facility] Internal Medicine Work Phone: Comment on above: PATIENT NOT FASTINGP ERFORMED BY: CB [facility] Ptujdq2650 [address] RoadDublin [place] [id number] Potassium [Moles/Vol] 4.5 mmol/L Normal 3.5-5.2 [facility] Work Phone: Comment on above: PATIENT NOT FASTINGP ERFORMED BY: CB [facility] Ojscta8335 [address] RoadDublin [place] [id number] Protein [Mass/Vol] 6.8 g/dL Normal 6.0-8.5 [facility] Internal Medicine Work Phone: Comment on above: PATIENT NOT FASTINGP ERFORMED BY: CB [facility] Cugnlk6279 [address] RoadDublin [place] [id number] Sodium [Moles/Vol] 143 mmol/L Normal 134-144 [facility] Internal Medicine Work Phone: Comment on above: PATIENT NOT FASTINGP ERFORMED BY: CB [facility] Fxnrpd8642 [address] RoadDublin [place] [id number] Urea nitrogen [Mass/Vol] 17 mg/dL Normal 8- [facility] Work Phone: Comment on above: PATIENT NOT FASTINGP ERFORMED BY: JESSE Razo6370 [facility] [id number] Urea nitrogen/Creatinine [Mass ratio] 27 mg/mg Normal 12- [facility] Work Phone: Comment on above: PATIENT NOT FASTINGP ERFORMED BY: JESSE Villagran Nirwuq1136 [facility] [id number] TSH ([id number])Ordered By: Bluegrass Vascular Technologiese m Local Flatbed Driver on 12-08-2019 TSH Qn 2.250 {uIU/mL} Normal 0.450-4.50 0 [facility] Work Phone: Comment on above: PATIENT NOT FASTINGP ERFORMED BY: JESSE Sparkle Jkimeg8174 [facility] [id number] T3, FREE (TRIDOTHYRONINE) ([id number])Ordered By: Ore Crusher on 07-12-2019 Free T3 [Mass/Vol] 2.6 pg/mL Normal 2.0-4.4 [facility] Internal Medicine Work Phone: Comment on above: PATIENT NOT FASTINGP ERFORMED BY: JESSE Villagran Kbgznj2582 [facility] [id number]; 07/20 T4, FREE (THYROXINE) ([id number]) Ordered By: Ore Crusher on 07-12-2019 Free T4 [Mass/Vol] 1.53 ng/dL Normal 0.82-1.77 [facility] Internal Medicine Work Phone: Comment on above: PATIENT NOT FASTINGP ERFORMED BY: [facility] Liijks0326 [facility] [id number] TSH ([id number])Ordered By: Syste m Local Flatbed Driver on 07-12-2019 TSH Qn 3.450 {uIU/mL} Normal 0.450-4.50 0 [facility] Internal Medicine Work Phone: Comment on above: PATIENT NOT FASTINGP ERFORMED BY: [facility] Lmkslo2796 [facility] [id number] CALCIFEDIOL ([id number])Ordered B y: Ore Crusher on 06-01-2019 25-Hydroxyvitamin D2+25-Hydroxyvitamin D3 [Mass/Vol] 48.2 ng/mL Normal 30.0-100.0 [facility] Work Phone: Comment on above: Vitamin D deficiency has been defined by the [facility] and an Endocrine Society practice guideline as alevel of serum 25-OH vitamin D less than 20 ng/mL (1,2).The Endocrine Society went on to further define vitamin Dinsufficiency as a level between 21 and 29 ng/mL (2).1. IOM ([facility] [employer]). 2010. Dietary reference intakes for calcium and D. [place]: The National Academies Press.2. Chavez MF, Brian ZAZUETA, Nakul HARE, et al. Evaluation, treatment, and prevention of vitamin D deficiency: an Endocrine Society clinical practice guideline. JCEM. 2010; 96(7):1911-30. PATIENT WAS FASTINGP ERFORMED BY: [employer]70 Artisoftformerly [facility] [id number] CBC with auto diff (69161)Or dered By: Ore Crusher on 06-01-2019 Basophils (Bld) [#/Vol] 0.1 {x10E3/uL} Normal 0.0-0.2 [facility] Work Phone: Comment on above: PATIENT WAS FASTINGP ERFORMED BY: ScanSocialin [place] [id number] Basophils (Bld) [#/Vol] 0.1 10*3/uL Normal 0.0-0.2 [facility]; [facility] Work Phone: Comment on above: PATIENT WAS FASTINGP ERFORMED BY: [employer]70 Artisoftblin [place] [id number] Basophils/100 WBC (Bld) 1 % Normal [facility] Work Phone: Comment on above: PATIENT WAS FASTINGP ERFORMED BY: ScanSocialformerly [facility] [id number] Eosinophils (Bld) [#/Vol] 0.2 {x10E3/uL} Normal 0.0-0.4 [facility] Work Phone: Comment on above: PATIENT WAS FASTINGP ERFORMED BY: Lab[facility] Rvtrgt1969 [address] RoadDublin [place] [id number] Eosinophils (Bld) [#/Vol] 0.2 10*3/uL Normal 0.0-0.4 [facility]; [facility] Work Phone: Comment on above: PATIENT WAS FASTINGP ERFORMED BY: LabCoRutgers - University Behavioral HealthCareHjgeyp4468 Roger RoadDublin [place] [id number] Eosinophils/100 WBC (Bld) 3 % Normal [facility] Work Phone: Comment on above: PATIENT WAS FASTINGP ERFORMED BY: Lab[facility] Akbuod4733 Roger RoadQuorum Healthin [place] [id number] Erythrocyte distribution width (RBC) [Ratio] 11.9 % Normal 11.7-15.4 [facility] Work Phone: Comment on above: PATIENT WAS FASTINGP ERFORMED BY: LabVeterans Affairs Medical Center6370 Roger RoadQuorum Healthin [place] [id number] Hematocrit (Bld) [Volume fraction] 41.4 % Normal 34.0-46.6 [facility] Work Phone: Comment on above: PATIENT WAS FASTINGP ERFORMED BY: LabSullivan County Memorial HospitalYfepvq7865 Roger RoadQuorum Healthin [place] [id number] Hemoglobin (Bld) [Mass/Vol] 13.8 g/dL Normal 11.1-15.9 [facility] Work Phone: Comment on above: PATIENT WAS FASTINGP ERFORMED BY: Lab[facility] Njwiwh4928 [address] RoadDublin [place] [id number] Immature granulocytes (Bld) [#/Vol] 0.0 {x10E3/uL} Normal 0.0-0.1 [facility] Work Phone: Comment on above: PATIENT WAS FASTINGP ERFORMED BY: [facility] Glessv5518 [address] RoadDublin [place] [id number] Immature granulocytes (Bld) [#/Vol] 0.0 10*3/uL Normal 0.0-0.1 [facility]; [facility] Work Phone: Comment on above: PATIENT WAS FASTINGP ERFORMED BY: JESSE LabCoshannan RodriguezOgpqgo8338 Roger RoadDublin [place] [id number] Immature granulocytes/100 WBC (Bld) 0 % Normal [facility] Work Phone: Comment on above: PATIENT WAS FASTINGP ERFORMED BY: JESSE [facility] Kgtofu8671 [address] RoadDublin [place] [id number] Lymphocytes (Bld) [#/Vol] 1.7 {x10E3/uL} Normal 0.7-3.1 [facility] Work Phone: Comment on above: PATIENT WAS FASTINGP ERFORMED BY: JESSE LabIdshannan RodriguezKhxnph1097 [address] [facility] [id number] Lymphocytes (Bld) [#/Vol] 1.7 10*3/uL Normal 0.7-3.1 [facility]; [facility] Work Phone: Comment on above: PATIENT WAS FASTINGP ERFORMED BY: JESSE LabChon RodriguezYrbysq0625 [address] RoadDublin [place] [id number] Lymphocytes/100 WBC (Bld) 29 % Normal [facility] Work Phone: Comment on above: PATIENT WAS FASTINGP ERFORMED BY: JESSE [facility] Vvntgh2109 [address] [facility] Centerin [place] [id number] MCH (RBC) [Entitic mass] 32.2 pg Normal 26.6-33.0 [facility] Work Phone: Comment on above: PATIENT WAS FASTINGP ERFORMED BY: JESSE [facility] Kpkfca4282 [address] [facility] Cancer CenterDublin [place] [id number] MCHC (RBC) [Mass/Vol] 33.3 g/dL Normal 31.5-35.7 [facility] Work Phone: Comment on above: PATIENT WAS FASTINGP ERFORMED BY: JESSE [facility] Cnabvb9022 [address] [facility]bl[facility] [id number] MCV (RBC) [Entitic vol] 97 fL Normal 79-97 [facility] Work Phone: Comment on above: PATIENT WAS FASTINGP ERFORMED BY: JESSE LabCoshannan RazoMkxrrr4133 [address] RoadDublin [place] [id number] Monocytes (Bld) [#/Vol] 0.6 {x10E3/uL} Normal 0.1-0.9 [facility] Work Phone: Comment on above: PATIENT WAS FASTINGP ERFORMED BY: CB [facility] Esjftq0002 [address] RoadDublin [place] [id number] Monocytes (Bld) [#/Vol] 0.6 10*3/uL Normal 0.1-0.9 [facility]; [facility] Work Phone: Comment on above: PATIENT WAS FASTINGP ERFORMED BY: JESSE [facility] Fnqywg2730 [address] RoadDublin [place] [id number] Monocytes/100 WBC (Bld) 10 % Normal [facility] Work Phone: Comment on above: PATIENT WAS FASTINGP ERFORMED BY: JESSE [facility] Liqvjk6693 [address] RoadDublin [place] [id number] Neutrophils (Bld) [#/Vol] 3.4 {x10E3/uL} Normal 1.4-7.0 [facility] Work Phone: Comment on above: PATIENT WAS FASTINGP ERFORMED BY: [facility] Gefabi7893 [address] RoadDublin [place] [id number] Neutrophils (Bld) [#/Vol] 3.4 10*3/uL Normal 1.4-7.0 [facility]; [facility] Work Phone: Comment on above: PATIENT WAS FASTINGP ERFORMED BY: CB [facility] Vmecxl1580 [address] RoadDublin [place] [id number] Neutrophils/100 WBC (Bld) 57 % Normal [facility] Work Phone: Comment on above: PATIENT WAS FASTINGP ERFORMED BY: CB [facility] Mmmsox2785 [address] RoadDublin [place] [id number] Platelets (Bld) [#/Vol] 292 {x10E3/uL} Normal 150-450 [facility] Work Phone: Comment on above: PATIENT WAS FASTINGP ERFORMED BY: JESSE Razo6370 Roger RoadFransiscoblin [place] [id number] Platelets (Bld) [#/Vol] 292 10*3/uL Normal 150-450 [facility]; [facility] Work Phone: Comment on above: PATIENT WAS FASTINGP ERFORMED BY: JESSE [facility] Bdconk2853 Roger RoadQuorum Healthin [place] [id number] RBC (Bld) [#/Vol] 4.29 {x10E6/uL} Normal 3.77-5.28 [facility] Internal Medicine Work Phone: Comment on above: PATIENT WAS FASTINGP ERFORMED BY: JESSE Sparkle Aclpgh6683 Roger Roadblin [place] [id number] RBC (Bld) [#/Vol] 4.29 10*6/uL Normal 3.77-5.28 [facility] Internal Medicine; [facility] Work Phone: Comment on above: PATIENT WAS FASTINGP ERFORMED BY: JESSE Villagran Jdlzxy3715 [address] [facility] Centerin [place] [id number] WBC (Bld) [#/Vol] 5.8 {x10E3/uL} Normal 3.4-10.8 [facility] Work Phone: Comment on above: PATIENT WAS FASTINGP ERFORMED BY: [facility] Dahuxw1186 Roger RoadQuorum Healthin [place] [id number] WBC (Bld) [#/Vol] 5.8 10*3/uL Normal 3.4-10.8 [facility]; [facility] Work Phone: Comment on above: PATIENT WAS FASTINGP ERFORMED BY: JESSE [facility] Rgnfbn1577 [address] [facility]man[facility] Cancer CenterDublin [place] [id number] LIPID PANEL ([id number])Ordered B y: Ore Crusher on 06-01-2019 Cholesterol [Mass/Vol] 146 mg/dL Normal 100-199 [facility] Work Phone: Comment on above: PATIENT WAS FASTINGP ERFORMED BY: JESSE Rodriguezlin6370 [address] [facility] Centerin [place] [id number] Cholesterol in HDL [Mass/Vol] 57 mg/dL Normal [facility] Work Phone: Comment on above: PATIENT WAS FASTINGP ERFORMED BY: JESSE Rodriguezlin6370 [address] [facility] [id number] Cholesterol in LDL [Mass/Vol] 71 mg/dL Normal 0-99 [facility] Work Phone: Comment on above: PATIENT WAS FASTINGP ERFORMED BY: JESSE Razo6370 [facility] [id number] Cholesterol in LDL/Cholesterol in HDL [Mass ratio] 1.2 {ratio} Normal 0.0-3.2 [facility] Work Phone: Comment on above: LDL/HDL Ratio Men Wo men 1/2 Avg.Risk 1.0 1.5 Avg.Risk 3.6 3.2 2X Avg.Risk 6.2 5.0 3X Avg.Risk 8.0 6.1 PATIENT WAS FASTINGP ERFORMED BY: JESSE Rodriguezlin6370 [facility] [id number] Cholesterol in VLDL [Mass/Vol] 18 mg/dL Normal 5-40 [facility] Work Phone: Comment on above: PATIENT WAS FASTINGP ERFORMED BY: JESSE Rodriguezlin6370 [facility] [id number] Triglyceride [Mass/Vol] 91 mg/dL Normal 0-149 [facility] Work Phone: Comment on above: PATIENT WAS FASTINGP ERFORMED BY: JESSE LabChon RodriguezRbhnri9796 [address] [facility] Centerin [place] [id number] METABOLIC PANEL, COMPREHENSI VE ([id number])Ordered By: Ore Crusher on 06-01-2019 Albumin [Mass/Vol] 4.6 g/dL Normal 3.7-4.7 [facility] Internal Medicine Work Phone: Comment on above: PATIENT WAS FASTINGP ERFORMED BY: CB [facility] Uymxqw1800 [address] RoadDublin [place] [id number] Albumin/Globulin [Mass ratio] 1.8 {ratio} Normal 1.2-2.2 [facility] Work Phone: Comment on above: PATIENT WAS FASTINGP ERFORMED BY: JESSE [facility] Frmtqt4593 [address] RoadDublin [place] [id number] ALP [Catalytic activity/Vol] 47 [iU]/L Normal 39-117 [facility] Work Phone: Comment on above: PATIENT WAS FASTINGP ERFORMED BY: [facility] Bkbbgw4716 [address] RoadDublin [place] [id number] ALP [Catalytic activity/Vol] 47 U/L Normal 39-117 [facility]; [facility] Work Phone: Comment on above: PATIENT WAS FASTINGP ERFORMED BY: [facility] Bxvaoz0130 [address] RoadDublin [place] [id number] ALT [Catalytic activity/Vol] 24 [iU]/L Normal 0-32 [facility] Work Phone: Comment on above: PATIENT WAS FASTINGP ERFORMED BY: [facility] Pyzufb5242 [address] RoadDublin [place] [id number] ALT [Catalytic activity/Vol] 24 U/L Normal 0-32 [facility]; [facility] Work Phone: Comment on above: PATIENT WAS FASTINGP ERFORMED BY: [facility] Huyats1530 [address] RoadDublin [place] [id number] AST [Catalytic activity/Vol] 22 [iU]/L Normal 0-40 [facility] Work Phone: Comment on above: PATIENT WAS FASTINGP ERFORMED BY: [facility] Oxutxm8289 [address] RoadDublin [place] [id number] AST [Catalytic activity/Vol] 22 U/L Normal 0-40 [facility]; [facility] Work Phone: Comment on above: PATIENT WAS FASTINGP ERFORMED BY: [facility] Crtfiu4339 [address] RoadDublin [place] [id number] Bilirubin [Mass/Vol] 0.5 mg/dL Normal 0.0-1.2 [facility] Work Phone: Comment on above: PATIENT WAS FASTINGP ERFORMED BY: CB [facility] Ejriad8513 [address] RoadDublin [place] [id number] Calcium [Mass/Vol] 10.1 mg/dL Normal 8.7-10.3 [facility] Internal Medicine Work Phone: Comment on above: PATIENT WAS FASTINGP ERFORMED BY: CB [facility] Nryavs8786 [address] RoadDublin [place] [id number] Chloride [Moles/Vol] 101 mmol/L Normal 96-106 [facility] Internal Medicine Work Phone: Comment on above: PATIENT WAS FASTINGP ERFORMED BY: CB [facility] Vgszcw7287 [address] RoadDublin [place] [id number] CO2 [Moles/Vol] 23 mmol/L Normal 20-29 [facility] Internal Medicine Work Phone: Comment on above: PATIENT WAS FASTINGP ERFORMED BY: CB [facility] Taiiwg0905 [address] RoadDublin [place] [id number] Creatinine [Mass/Vol] 0.78 mg/dL Normal 0.57-1.00 [facility] Work Phone: Comment on above: PATIENT WAS FASTINGP ERFORMED BY: CB [facility] Caaogu0108 [address] RoadDublin [place] [id number] GFR/1.73 sq M predicted among blacks CKD-EPI (S/P/Bld) [Vol rate/Area] 87 mL/min/1.73 Normal [facility] Work Phone: Comment on above: PATIENT WAS FASTINGP ERFORMED BY: CB [facility] Iewbbt2882 [address] RoadDublin [place] [id number] GFR/1.73 sq M predicted among non-blacks CKD-EPI (S/P/Bld) [Vol rate/Area] 76 mL/min/1.73 Normal [facility] Work Phone: Comment on above: PATIENT WAS FASTINGP ERFORMED BY: CB [facility] Ybdpiw6022 [address] RoadDublin [place] [id number] Globulin (S) [Mass/Vol] 2.5 g/dL Normal 1.5-4.5 [facility] Work Phone: Comment on above: PATIENT WAS FASTINGP ERFORMED BY: JESSE [facility] Ehyawn5165 [address] RoadDublin [place] [id number] Glucose [Mass/Vol] 100 mg/dL Abnormal 65-99 [facility] Internal Medicine Work Phone: Comment on above: PATIENT WAS FASTINGP ERFORMED BY: JESSE [facility] Chqfsl0598 [address] RoadDublin [place] [id number] Potassium [Moles/Vol] 4.4 mmol/L Normal 3.5-5.2 [facility] Work Phone: Comment on above: PATIENT WAS FASTINGP ERFORMED BY: JESSE LabSaint [facility] Hlobvu9990 Roger RoadQuorum Healthin [place] [id number] Protein [Mass/Vol] 7.1 g/dL Normal 6.0-8.5 [facility] Internal Medicine Work Phone: Comment on above: PATIENT WAS FASTINGP ERFORMED BY: JESSE [facility] Caipjr1685 [address] RoadDublin [place] [id number] Sodium [Moles/Vol] 139 mmol/L Normal 134-144 [facility] Internal Medicine Work Phone: Comment on above: PATIENT WAS FASTINGP ERFORMED BY: JESSE [facility] Tffhfn3458 [address] RoadDublin [place] [id number] Urea nitrogen [Mass/Vol] 18 mg/dL Normal 8-27 [facility] Work Phone: Comment on above: PATIENT WAS FASTINGP ERFORMED BY: [facility] Bwnshy7678 Rgoer RoadDublin [place] [id number] Urea nitrogen/Creatinine [Mass ratio] 23 mg/mg Normal 12-28 [facility] Work Phone: Comment on above: PATIENT WAS FASTINGP ERFORMED BY: JESSE [facility] Kxgcor1192 [address] RoadDublin [place] [id number] MICROALBUMINOrdered By: Syst em Local Flatbed Driver on 06-01-2019 Albumin DL <= 20 mg/L (U) [Mass/Vol] 19.4 ug/mL Normal Comprehensiv e Internal Medicine Work Phone: Comment on above: PATIENT WAS FASTINGP ERFORMED BY: JESSE LabCoshannan RodriguezNpfwlb3958 Roger RoadDublin [place] [id number] Albumin/Creatinine (U) [Mass ratio] 13 {mg/g_creat} Normal 0-29 [facility] Work Phone: Comment on above: Normal: 0 - 29 Moder ately increased: 30 - 300 Severely increased: >300 Please note reference interval change PATIENT WAS FASTINGP ERFORMED BY: JESSE LabCoshannan RodriguezSbivrv5636 [address] RoadDublin [place] [id number] Creatinine (U) [Mass/Vol] 145.4 mg/dL Normal [facility] Work Phone: Comment on above: PATIENT WAS FASTINGP ERFORMED BY: JESSE LabCoshannan RodriguezYodvid2605 [address] RoadDublin [place] [id number] TSH (THYROID STIMULATING HOR MARCELINA) ([id number])Ordered By: Ore Crusher on 06-01-2019 TSH Qn 5.820 {uIU/mL} Abnormal 0.450-4.50 0 [facility] Work Phone: Comment on above: PATIENT WAS FASTINGP ERFORMED BY: JESSE LabCoshannan RodriguezDfxest9118 [address] RoadDublin [place] [id number] URINALYSIS ([id number])Ordered By : Ore Crusher on 06-01-2019 Appearance (U) Clear Normal Comprehens eliz Internal Medicine Work Phone: Comment on above: PATIENT WAS FASTINGP ERFORMED BY: JESSE [facility] Xsgsty0357 [address] RoadDublin [place] [id number] Bilirubin Ql (U) Negative Normal Comprehe nsive Internal Medicine Work Phone: Comment on above: PATIENT WAS FASTINGP ERFORMED BY: JESSE [facility] Cyuzin5648 [address] RoadDublin [place] [id number] Bilirubin Ql (U) Negative Normal Comprehe nsive Internal Medicine; [facility] Work Phone: Comment on above: PATIENT WAS FASTINGP ERFORMED BY: JESSE Rodriguezlin6370 [address] RoadDublin [place] [id number] Color (U) Yellow Normal [facility] Work Phone: Comment on above: PATIENT WAS FASTINGP ERFORMED BY: JESSE Razo6370 [address] RoadDublin [place] [id number] Glucose Ql (U) Negative Normal Comprehens eliz Internal Medicine Work Phone: Comment on above: PATIENT WAS FASTINGP ERFORMED BY: JESSE Razo6370 [address] RoadDublin [place] [id number] Glucose Ql (U) Negative Normal Comprehens eliz Internal Medicine; [facility] Work Phone: Comment on above: PATIENT WAS FASTINGP ERFORMED BY: JESSE Razo6370 [address] RoadDublin [place] [id number] Hemoglobin Ql (U) Negative Normal Compreh ensive Internal Medicine Work Phone: Comment on above: PATIENT WAS FASTINGP ERFORMED BY: JESSE Razo6370 [address] RoadDublin [place] [id number] Hemoglobin Ql (U) Negative Normal Compreh ensive Internal Medicine; [facility] Work Phone: Comment on above: PATIENT WAS FASTINGP ERFORMED BY: JESSE Razo6370 [address] RoadDublin [place] [id number] Ketones Ql (U) Negative Normal Comprehens eliz Internal Medicine Work Phone: Comment on above: PATIENT WAS FASTINGP ERFORMED BY: JESSE Rodriguezlin6370 [address] RoadDublin [place] [id number] Ketones Ql (U) Negative Normal Comprehens eliz Internal Medicine; [facility] Work Phone: Comment on above: PATIENT WAS FASTINGP ERFORMED BY: JESSE Rodriguezlin6370 [address] RoadDublin [place] [id number] Leukocyte esterase Test strip Ql (U) 2+ Abnormal [facility] Work Phone: Comment on above: PATIENT WAS FASTINGP ERFORMED BY: CB [facility] Btirfz4188 [address] RoadDublin [place] [id number] Microscopic observation LM Nom (Urine sed) See below: Normal [facility] Work Phone: Comment on above: Microscopic was rafael cated and was performed. PATIENT WAS FASTINGP ERFORMED BY: JESSE [facility] Kvjwoy3811 [address] RoadDublin [place] [id number] Nitrite Ql (U) Negative Normal Comprehens eliz Internal Medicine Work Phone: Comment on above: PATIENT WAS FASTINGP ERFORMED BY: JESSE [facility] Dwwees2650 [address] RoadDublin [place] [id number] Nitrite Ql (U) Negative Normal Comprehens eliz [facility] Medicine; [facility] Work Phone: Comment on above: PATIENT WAS FASTINGP ERFORMED BY: JESSE LabSaint [facility] Drewlh4575 Roger RoadDublin [place] [id number] pH (U) 6.5 [pH] Normal 5.0-7.5 [facility] Work Phone: Comment on above: PATIENT WAS FASTINGP ERFORMED BY: JESSE [facility] Gqqplh7004 [address] RoadDublin [place] [id number] Protein Ql (U) Negative Normal Comprehens eliz [facility] Medicine Work Phone: Comment on above: PATIENT WAS FASTINGP ERFORMED BY: JESSE [facility] Keqpbv6598 [address] RoadDublin [place] [id number] Protein Ql (U) Negative Normal Comprehens eliz [facility]; [facility] Work Phone: Comment on above: PATIENT WAS FASTINGP ERFORMED BY: LabCo Hrhsco8812 [address] RoadDublin [place] [id number] Specific gravity (U) [Rel density] 1.020 1 Normal 1.005-1.03 0 [facility] Work Phone: Comment on above: PATIENT WAS FASTINGP ERFORMED BY: JESSE [facility] Hbydmy3027 [address] RoadDublin [place] [id number] Urobilinogen (U) [Mass/Vol] 0.2 mg/dL Normal 0.2-1.0 [facility]; [facility] Work Phone: Comment on above: PATIENT WAS FASTINGP ERFORMED BY: Global VelocitySaint [facility] Agglfi7262 [facility] [id number] Urobilinogen Test strip (U) [Mass/Vol] 0.2 mg/dL Normal 0.2-1.0 Comprehensi Internal Medicine Work Phone: Comment on above: PATIENT WAS FASTINGP ERFORMED BY: LabSaint [facility] Lmbhhx8256 [facility] [id number] CALCIFEDIOL (15922)on 2017 25-Hydroxyvitamin D2+25-Hydroxyvitamin D3 mass conc 43.2 ng/mL Normal 30.0-100.0 [facility] Internal Medicine Work Phone: Comment on above: Vitamin D deficiency has been defined by the [employer] ofMedicine and an Endocrine Society practice guideline as alevel of serum 25-OH vitamin D less than 20 ng/mL (1,2).The Endocrine Society went on to further define vitamin Dinsufficiency as a level between 21 and 29 ng/mL (2).1. IOM ([employer]). 2010. Dietary reference intakes for calcium and D. [place]: The National Academies Press.2. Chavez MF, Brian ZAZUETA, Nakul HARE, et al. Evaluation, treatment, and prevention of vitamin D deficiency: an Endocrine Society clinical practice guideline. JCEM. 2010; 96(7):1911-30. PATIENT WAS FASTINGP ERFORMED BY: Global VelocitySaint John'[facility] Saint [facility] Kuopeu7375 [facility] [id number] CBC WITH MANUAL DIFF (52251) on 03-20-2018 Basophils #/vol (Bld) 0.0 {x10E3/uL} Normal 0.0-0.2 [facility] Internal Medicine Work Phone: Comment on above: PATIENT WAS FASTINGP ERFORMED BY: LabSaint [facility] Umbqeq5790 [facility] [id number] Basophils Auto #/vol (Bld) 0.0 {x10E3/uL} Normal 0.0-0.2 [facility] Internal Medicine Work Phone: Basophils/100 WBC (Bld) 0 % Normal [facility] Work Phone: Comment on above: PATIENT WAS FASTINGP ERFORMED BY: JESSE DeniseCarla [place] [id number] [facility] [id number] Basophils/100 WBC Auto (Bld) 0 % Normal [facility] Work Phone: Eosinophils #/vol (Bld) 0.2 {x10E3/uL} Normal 0.0-0.4 [facility] Work Phone: Comment on above: PATIENT WAS FASTINGP ERFORMED BY: JESSE [place] 0227170 [facility] [id number] Eosinophils Auto #/vol (Bld) 0.2 {x10E3/uL} Normal 0.0-0.4 [facility] Work Phone: Eosinophils/100 WBC (Bld) 2 % Normal [facility] Work Phone: Comment on above: PATIENT WAS FASTINGP ERFORMED BY: JESSE [place] 0227170 [facility] [id number] Eosinophils/100 WBC Auto (Bld) 2 % Normal [facility] Work Phone: Erythrocyte distribution width Auto Ratio (RBC) 13.3 % Normal 12.3-15.4 [facility] Work Phone: Erythrocyte distribution width Ratio (RBC) 13.3 % Normal 12.3-15.4 [facility] Work Phone: Comment on above: PATIENT WAS FASTINGP ERFORMED BY: [place] [id number] [facility] [id number] Hematocrit Auto Volume Fraction (Bld) 39.1 % Normal 34.0-46.6 [facility] Work Phone: Hematocrit Volume Fraction (Bld) 39.1 % Normal 34.0-46.6 [facility] Work Phone: Comment on above: PATIENT WAS FASTINGP ERFORMED BY: [place] [id number] [facility] [id number] Hemoglobin mass conc (Bld) 13.0 g/dL Normal 11.1-15.9 [facility] Work Phone: Comment on above: PATIENT WAS FASTINGP ERFORMED BY: JESSE DeniseCarla [place] [id number] [facility] [id number] Immature granulocytes #/vol (Bld) 0.0 {x10E3/uL} Normal 0.0-0.1 [facility] Work Phone: Comment on above: PATIENT WAS FASTINGP ERFORMED BY: JESSE [place] 0227170 [facility] [id number] Immature granulocytes/100 WBC (Bld) 0 % Normal [facility] Work Phone: Comment on above: PATIENT WAS FASTINGP ERFORMED BY: JESSE [facility] Btygyn0382 [facility] [id number] Lymphocytes #/vol (Bld) 1.8 {x10E3/uL} Normal 0.7-3.1 [facility] Work Phone: Comment on above: PATIENT WAS FASTINGP ERFORMED BY: JESSE [facility] Jgpcrl6509 [facility] [id number] Lymphocytes Auto #/vol (Bld) 1.8 {x10E3/uL} Normal 0.7-3.1 [facility] Work Phone: Lymphocytes/100 WBC (Bld) 19 % Normal [facility] Work Phone: Comment on above: PATIENT WAS FASTINGP ERFORMED BY: [place] [id number] [facility] [id number] Lymphocytes/100 WBC Auto (Bld) 19 % Normal [facility] Work Phone: MCH Auto Entitic mass (RBC) 32.1 pg Normal 26.6-33.0 [facility] Work Phone: MCH Entitic mass (RBC) 32.1 pg Normal 26.6-33.0 [facility] Work Phone: Comment on above: PATIENT WAS FASTINGP ERFORMED BY: [place] [id number] [facility] [id number] MCHC Auto mass conc (RBC) 33.2 g/dL Normal 31.5-35.7 [facility] Work Phone: MCHC mass conc (RBC) 33.2 g/dL Normal 31.5-35.[address] [facility] Internal Medicine Work Phone: Comment on above: PATIENT WAS FASTINGP ERFORMED BY: LabSaint [facility] Psxpgl5894 [facility] [id number] MCV Auto Entitic volume (RBC) 97 fL Normal 79-97 [facility] Work Phone: MCV Entitic volume (RBC) 97 fL Normal 79-97 [facility] Work Phone: Comment on above: PATIENT WAS FASTINGP ERFORMED BY: JESSE LabCarla Ville [id number] [facility] [id number] Monocytes #/vol (Bld) 0.7 {x10E3/uL} Normal 0.1-0.9 [facility] Work Phone: Comment on above: PATIENT WAS FASTINGP ERFORMED BY: LabVeterans Affairs Medical Center6370 [facility] [id number] Monocytes Auto #/vol (Bld) 0.7 {x10E3/uL} Normal 0.1-0.9 [facility] Work Phone: Monocytes/100 WBC (Bld) 8 % Normal [facility] Work Phone: Comment on above: PATIENT WAS FASTINGP ERFORMED BY: LabCarla Ville 1793870 [facility] [id number] Monocytes/100 WBC Auto (Bld) 8 % Normal [facility] Work Phone: Neutrophils #/vol (Bld) 6.4 {x10E3/uL} Normal 1.4-7.0 [facility] Work Phone: Comment on above: PATIENT WAS FASTINGP ERFORMED BY: LabSaint [facility] Eggcek1367 [facility] [id number] Neutrophils Auto #/vol (Bld) 6.4 {x10E3/uL} Normal 1.4-7.0 [facility] Work Phone: Neutrophils/100 WBC (Bld) 71 % Normal [facility] Work Phone: Comment on above: PATIENT WAS FASTINGP ERFORMED BY: JESSE LabEkotropeRutgers - University Behavioral HealthCareXghsuc4492 [facility] [id number] Neutrophils/100 WBC Auto (Bld) 71 % Normal [facility] Work Phone: Platelets #/vol (Bld) 287 {x10E3/uL} Normal 150-379 [facility] Work Phone: Comment on above: PATIENT WAS FASTINGP ERFORMED BY: LabCarla [place]ille 1793870 [facility] [id number] Platelets Auto #/vol (Bld) 287 {x10E3/uL} Normal 150-379 [facility] Work Phone: RBC #/vol (Bld) 4.05 {x10E6/uL} Normal 3.77-5.28 [facility] Internal Medicine Work Phone: Comment on above: PATIENT WAS FASTINGP ERFORMED BY: LabEkotropeRutgers - University Behavioral HealthCareZtbtfy3079 [facility] [id number] RBC Auto #/vol (Bld) 4.05 {x10E6/uL} Normal 3.77-5.28 [facility] Work Phone: WBC #/vol (Bld) 9.1 {x10E3/uL} Normal 3.4-10.8 [facility] Internal Medicine Work Phone: Comment on above: PATIENT WAS FASTINGP ERFORMED BY: LabCoRutgers - University Behavioral HealthCareGnyssb9777 [facility] [id number] WBC Auto #/vol (Bld) 9.1 {x10E3/uL} Normal 3.4-10.8 [facility] Internal Medicine Work Phone: CBC WITH MANUAL DIFF ([id number]) Ordered By: Ore Crusher on 03-20-2018 Basophils (Bld) [#/Vol] 0.0 10*3/uL Normal 0.0-0.2 [facility]; [facility] Work Phone: Comment on above: PATIENT WAS FASTINGP ERFORMED BY: [facility] Jnvyth7280 [address] RoadDublin [place] [id number] Eosinophils (Bld) [#/Vol] 0.2 10*3/uL Normal 0.0-0.4 [facility]; [facility] Work Phone: Comment on above: PATIENT WAS FASTINGP ERFORMED BY: CB [facility] Hjlmai2654 [address] RoadDublin [place] [id number] Immature granulocytes (Bld) [#/Vol] 0.0 10*3/uL Normal 0.0-0.1 [facility]; [facility] Work Phone: Comment on above: PATIENT WAS FASTINGP ERFORMED BY: LabCo Rbwpel9982 Roger Roadblin [place] [id number] Lymphocytes (Bld) [#/Vol] 1.8 10*3/uL Normal 0.7-3.1 [facility]; [facility] Work Phone: Comment on above: PATIENT WAS FASTINGP ERFORMED BY: LabCo Fibzkr7326 [address] RoadDublin [place] [id number] Monocytes (Bld) [#/Vol] 0.7 10*3/uL Normal 0.1-0.9 [facility]; [facility] Work Phone: Comment on above: PATIENT WAS FASTINGP ERFORMED BY: LabCo Lshzuj4093 [address] RoadDublin [place] [id number] Neutrophils (Bld) [#/Vol] 6.4 10*3/uL Normal 1.4-7.0 [facility]; [facility] Work Phone: Comment on above: PATIENT WAS FASTINGP ERFORMED BY: CB [facility] Nxxyyj5879 [address] RoadDublin [place] [id number] Platelets (Bld) [#/Vol] 287 10*3/uL Normal 150-379 [facility]; [facility] Work Phone: Comment on above: PATIENT WAS FASTINGP ERFORMED BY: CB [facility] Ttcyyl4481 [address] RoadDublin [place] [id number] RBC (Bld) [#/Vol] 4.05 10*6/uL Normal 3.77-5.28 Compr ehensive Internal Medicine; [facility] Work Phone: Comment on above: PATIENT WAS FASTINGP ERFORMED BY: JESSE Rodriguezlin6370 [address] RoadDublin [place] [id number] WBC (Bld) [#/Vol] 9.1 10*3/uL Normal 3.4-10.8 Compre [facility] Internal Medicine; [facility] Work Phone: Comment on above: PATIENT WAS FASTINGP ERFORMED BY: JESSE Rodriguezlin6370 [address] RoadDublin [place] [id number] Lipid Panel (02436)on 2017 Cholesterol in HDL mass conc 70 mg/dL Normal [facility] Work Phone: Comment on above: PATIENT WAS FASTINGP ERFORMED BY: JESSE Rodriguezlin6370 [address] [facility]in [place] [id number] Cholesterol in LDL mass conc 71 mg/dL Normal 0-99 [facility] Work Phone: Comment on above: PATIENT WAS FASTINGP ERFORMED BY: JESSE Rodriguezlin6[address] [facility]in [place] [id number] Cholesterol in LDL/Cholesterol in HDL mass ratio 1.0 {ratio} Normal 0.0-3.2 [facility] Work Phone: Comment on above: LDL/HDL Ratio Men Wo men 1/2 Avg.Risk 1.0 1.5 Avg.Risk 3.6 3.2 2X Avg.Risk 6.2 5.0 3X Avg.Risk 8.0 6.1 PATIENT WAS FASTINGP ERFORMED BY: JESSE LabChon RodriguezRodpyp3222 [address] [facility]man[facility] Cancer CenterDublin [place] [id number] Cholesterol in VLDL mass conc 12 mg/dL Normal 5-40 [facility] Work Phone: Comment on above: PATIENT WAS FASTINGP ERFORMED BY: JESSE LabChon RodriguezAngmie2035 [address] RoadDublin [place] [id number] Cholesterol mass conc 153 mg/dL Normal 100-199 [facility] Work Phone: Comment on above: PATIENT WAS FASTINGP ERFORMED BY: JESSE Razo6370 [facility] [id number] Triglyceride mass conc 62 mg/dL Normal 0-149 [facility] Work Phone: Comment on above: PATIENT WAS FASTINGP ERFORMED BY: JESSE Razo6370 [facility] [id number] MICROALBUMINOrdered By: Syst em Local Flatbed Driver on 03-20-2018 Albumin DL <= 20 mg/L (U) [Mass/Vol] mg/dL Normal Comprehensiv e Internal Medicine; [facility] Work Phone: Comment on above: PATIENT WAS FASTINGP ERFORMED BY: JESSE Razo6370 [facility] [id number] MICROALBUMINon 03-20-2018 Albumin DL <= 20 mg/L mass conc (U) mg/dL Normal [facility] Work Phone: Comment on above: PATIENT WAS FASTINGP ERFORMED BY: JESSE Rodriguezlin6370 [facility] [id number] Albumin/Creatinine mass ratio (U) <4.9 Normal 0.0-30.0 [facility] Work Phone: Comment on above: Normal: 0.0 - 30.0 A lbuminuria: 31.0 - 300.0 Clinical albuminuria: >300.0 PATIENT WAS FASTINGP ERFORMED BY: JESSE Rodriguezlin6370 [facility] [id number] Creatinine mass conc (U) 61.1 mg/dL Normal [facility] Work Phone: Comment on above: PATIENT WAS FASTINGP ERFORMED BY: JESSE Rodriguezlin6370 [facility] [id number] Metabolic Panel, Comprehensi ve ([id number])on 03-20-2018 Albumin mass conc 4.4 g/dL Normal 3.5-4.8 Compreh ensive Internal Medicine Work Phone: Comment on above: PATIENT WAS FASTINGP ERFORMED BY: CB [facility] Jjanxv8106 [address] RoadDublin [place] [id number] Albumin/Globulin mass ratio 1.8 {ratio} Normal 1.2-2.2 [facility] Internal Medicine Work Phone: Comment on above: PATIENT WAS FASTINGP ERFORMED BY: [facility] Cnngep8753 [address] RoadDublin [place] [id number] ALP enzyme act/vol 63 [iU]/L Normal 39-117 [facility] Internal Medicine Work Phone: Comment on above: PATIENT WAS FASTINGP ERFORMED BY: [facility] Vkzjaw8996 Roger RoadDublin [place] [id number] ALT enzyme act/vol 13 [iU]/L Normal 0-32 [facility] Internal Medicine Work Phone: Comment on above: PATIENT WAS FASTINGP ERFORMED BY: LabSaint [facility] Ztdqyq3349 Roger RoadDublin [place] [id number] AST enzyme act/vol 17 [iU]/L Normal 0-40 [facility] Internal Medicine Work Phone: Comment on above: PATIENT WAS FASTINGP ERFORMED BY: [facility] Psbtar8387 [address] RoadDublin [place] [id number] Bilirubin mass conc 0.4 mg/dL Normal 0.0-1.2 [facility] Internal Medicine Work Phone: Comment on above: PATIENT WAS FASTINGP ERFORMED BY: [facility] Pgbcak3133 [address] RoadDublin [place] [id number] Calcium mass conc 9.4 mg/dL Normal 8.7-10.3 Compreh [facility] Internal Medicine Work Phone: Comment on above: PATIENT WAS FASTINGP ERFORMED BY: [facility] Ycoyne4624 [address] RoadDublin [place] [id number] Chloride molar conc 103 mmol/L Normal 96-106 Compr [facility] Internal Medicine Work Phone: Comment on above: PATIENT WAS FASTINGP ERFORMED BY: [facility] Jbehju8926 [address] RoadDublin [place] [id number] CO2 molar conc 24 mmol/L Normal 20-29 Comprehens eliz Internal Medicine Work Phone: Comment on above: PATIENT WAS FASTINGP ERFORMED BY: JESSE LabSaint [facility] Vcgsky9684 [address] [facility] Hospitalblin [place] [id number] Creatinine mass conc 0.55 mg/dL Abnormal 0.57-1.00 Comp rehensive Internal Medicine Work Phone: Comment on above: PATIENT WAS FASTINGP ERFORMED BY: LabSaint [facility] Olgfpk0326 [address] [facility]in [place] [id number] GFR/1.73 sq M predicted among blacks CKD-EPI vol rate/area (S/P/Bld) 108 mL/min/1.73 Normal Comprehensiv e Internal Medicine Work Phone: Comment on above: PATIENT WAS FASTINGP ERFORMED BY: JESSE LabSaint [facility] Saxevh0364 [address] [facility]in [place] [id number] GFR/1.73 sq M predicted among non-blacks CKD-EPI vol rate/area (S/P/Bld) 94 mL/min/1.73 Normal [facility] Work Phone: Comment on above: PATIENT WAS FASTINGP ERFORMED BY: JESSE LabSaint [facility] Ufytbh6009 [facility] [id number] Globulin Calculated mass conc (S) 2.5 g/dL Normal 1.5-4.5 [facility] Work Phone: Globulin mass conc (S) 2.5 g/dL Normal 1.5-4.5 [facility] Work Phone: Comment on above: PATIENT WAS FASTINGP ERFORMED BY: JESSE LabSaint [facility] Vtltap4440 [facility] [id number] Glucose mass conc 112 mg/dL Abnormal 65-99 Compreh ensive Internal Medicine Work Phone: Comment on above: PATIENT WAS FASTINGP ERFORMED BY: JESSE LabCo Kmokod0573 Roger [facility] [id number] Potassium molar conc 4.5 mmol/L Normal 3.5-5.2 Comp rehensive Internal Medicine Work Phone: Comment on above: PATIENT WAS FASTINGP ERFORMED BY: JESSE LabCoshannan RodriguezOezsoy0375 Roger RoadDublin [place] [id number] Protein mass conc 6.9 g/dL Normal 6.0-8.5 Compreh ensive Internal Medicine Work Phone: Comment on above: PATIENT WAS FASTINGP ERFORMED BY: JESSE LabCoshannan RodriguezMrtpcv4319 Roger RoadDublin [place] [id number] Sodium molar conc 143 mmol/L Normal 134-144 Compreh ensive Internal Medicine Work Phone: Comment on above: PATIENT WAS FASTINGP ERFORMED BY: JESSE LabCoshannan RodriguezMvbuio1246 Roger RoadDublin [place] [id number] Urea nitrogen mass conc 17 mg/dL Normal 8-27 [facility] Work Phone: Comment on above: PATIENT WAS FASTINGP ERFORMED BY: JESSE Rodriguezlin6370 [address] RoadDublin [place] [id number] Urea nitrogen/Creatinine mass ratio 31 mg/mg Abnormal 03-20 [facility] Work Phone: Comment on above: PATIENT WAS FASTINGP ERFORMED BY: JESSE Rodriguezlin6370 [address] RoadDublin [place] [id number] Metabolic Panel, Comprehensi ve ([id number])Ordered By: Ore Crusher on 03-20-2018 ALP [Catalytic activity/Vol] 63 U/L Normal 39-117 [facility]; [facility] Work Phone: Comment on above: PATIENT WAS FASTINGP ERFORMED BY: JESSE [facility] Gugret6547 Roger RoadDublin [place] [id number] ALT [Catalytic activity/Vol] 13 U/L Normal 0-32 [facility]; [facility] Work Phone: Comment on above: PATIENT WAS FASTINGP ERFORMED BY: JESSE [facility] Uhnexa4232 [address] RoadDublin [place] [id number] AST [Catalytic activity/Vol] 17 U/L Normal 0-40 [facility]; [facility] Work Phone: Comment on above: PATIENT WAS FASTINGP ERFORMED BY: JESSE [facility] Oijslw1792 [address] RoadDublin [place] [id number] TSH ([id number])on 03-20-2018 Thyrotropin Qn 2.810 {uIU/mL} Normal 0.450-4.50 0 [facility] Work Phone: Comment on above: PATIENT WAS FASTINGP ERFORMED BY: JESSE [facility] Mqypso6411 [address] RoadDublin [place] [id number] URINALYSIS ([id number])on 018 Appearance Nom (U) Clear Normal Compre hensive Internal Medicine Work Phone: Comment on above: PATIENT WAS FASTINGP ERFORMED BY: JESSE [facility] Qgfbwt1474 [address] RoadDublin [place] [id number] Bilirubin Ql (U) Negative Normal Comprehe nsive Internal Medicine Work Phone: Comment on above: PATIENT WAS FASTINGP ERFORMED BY: JESSE [facility] Qlxfnj1919 [address] RoadDublin [place] [id number] Color Nom (U) Yellow Normal Comprehensi ve Internal Medicine Work Phone: Comment on above: PATIENT WAS FASTINGP ERFORMED BY: JESSE [facility] Rdeavw6009 [address] RoadDublin [place] [id number] Glucose Ql (U) Negative Normal Comprehens eliz Internal Medicine Work Phone: Comment on above: PATIENT WAS FASTINGP ERFORMED BY: JESSE [facility] Gqefdh5856 [address] RoadDublin [place] [id number] Hemoglobin Ql (U) Negative Normal Compreh ensive Internal Medicine Work Phone: Comment on above: PATIENT WAS FASTINGP ERFORMED BY: [facility] Agccsx2292 [address] RoadDublin [place] [id number] Hemoglobin Test strip Ql (U) Negative Normal [facility] Work Phone: Ketones Ql (U) Negative Normal Comprehens eliz Internal Medicine Work Phone: Comment on above: PATIENT WAS FASTINGP ERFORMED BY: [facility] Zrgqlq1029 [address] RoadDublin [place] [id number] Leukocyte esterase Test strip Ql (U) Negative Normal [facility] Work Phone: Comment on above: PATIENT WAS FASTINGP ERFORMED BY: JESSE Villagran Krmacr1781 Roger RoadQuorum Healthin [place] [id number] Microscopic observation LM Nom (Urine sed) MICNIP Normal [facility] Work Phone: Comment on above: Microscopic not rafael cated and not performed. PATIENT WAS FASTINGP ERFORMED BY: JESSE LabSaint [facility] Qtjmlu5565 [address] [facility]in [place] [id number] Nitrite Ql (U) Negative Normal Comprehens eliz Internal Medicine Work Phone: Comment on above: PATIENT WAS FASTINGP ERFORMED BY: JESSE LabSaint [facility] Scsrzw3183 [address] Roadblin [place] [id number] Nitrite Test strip Ql (U) Negative Normal [facility] Work Phone: pH (U) 6.5 [pH] Normal 5.0-7.5 [facility] Work Phone: Comment on above: PATIENT WAS FASTINGP ERFORMED BY: JESSE WalkerSaint John'S Saint [facility] Hospital Pxywbg7404 Roger RoadNovant Health New [facility] [id number] pH Test strip (U) 6.5 [pH] Normal 5.0-7.5 Compreh ensive Internal Medicine Work Phone: Protein Ql (U) Negative Normal Comprehens eliz Internal Medicine Work Phone: Comment on above: PATIENT WAS FASTINGP ERFORMED BY: JESSE WalkerSaint John'S Saint [facility] Hospital Zwhidl0711 [address] [facility] [id number] Protein Test strip Ql (U) Negative Normal [facility] Work Phone: Specific gravity Relative Density (U) 1.019 1 Normal 1.005-1.03 0 [facility] Work Phone: Comment on above: PATIENT WAS FASTINGP ERFORMED BY: JESSE LabCo Myetju6083 Roger Roadblin [place] [id number] Urobilinogen Test strip mass conc (U) 0.2 mg/dL Normal 0.2-1.0 Comprehensiv e Internal Medicine Work Phone: Comment on above: PATIENT WAS FASTINGP ERFORMED BY: JESSE [facility] Olsdvu5016 [address] RoadDublin [place] [id number] URINALYSIS ([id number])Ordered By : Ore Crusher on 03-20-2018 Bilirubin Ql (U) Negative Normal Comprehe nsive Internal Medicine; [facility] Work Phone: Comment on above: PATIENT WAS FASTINGP ERFORMED BY: JESSE LabCoshannan RodriguezBttmta1107 Roger RoadDublin [place] [id number] Glucose Ql (U) Negative Normal Comprehens eliz Internal Medicine; [facility] Work Phone: Comment on above: PATIENT WAS FASTINGP ERFORMED BY: JESSE [facility] Pzsvql7134 [address] RoadDublin [place] [id number] Hemoglobin Ql (U) Negative Normal Compreh ensive Internal Medicine; [facility] Work Phone: Comment on above: PATIENT WAS FASTINGP ERFORMED BY: JESSE LabCoshannan [id number] Roger RoadDublin [place] [id number] Ketones Ql (U) Negative Normal [facility]; [facility] Work Phone: Comment on above: PATIENT WAS FASTINGP ERFORMED BY: JESSE LabCoshannan [id number] Roger RoadDublin [place] [id number] Leukocyte esterase Test strip Ql (U) Negative Normal [facility]; [facility] Work Phone: Comment on above: PATIENT WAS FASTINGP ERFORMED BY: JESSE LabChon [id number] Roger RoadDublin [place] [id number] Nitrite Ql (U) Negative Normal [facility]; [facility] Work Phone: Comment on above: PATIENT WAS FASTINGP ERFORMED BY: JESSE [facility] [id number] [address] RoadDublin [place] [id number] Protein Ql (U) Negative Normal [facility]; [facility] Work Phone: Comment on above: PATIENT WAS FASTINGP ERFORMED BY: JESSE [facility] [id number] Roger RoadDublin [place] [id number] Urobilinogen (U) [Mass/Vol] 0.2 mg/dL Normal 0.2-1.0 [facility]; [facility] Work Phone: Comment on above: PATIENT WAS FASTINGP ERFORMED BY: LabCoRut[facility] - [facility] Behavior[facility] [id number] [facility] [id number] Vital Signs Date Time Vital Sign Value Performing Clinician Facility 12-04-2022 16:090400 Body height 158.75 cm Patricia Beal LPN [facility]; [facility] Work Phone: 12-04-2022 16:090400 Body mass index (BMI) [Ratio] 32.67 kg/m2 Patricia Beal LPN [facility]; [facility] Work Phone: 12-04-2022 16:[id number] Body surface area Derived from formula 1.85 m2 Patricia Beal LPN [facility]; [facility] Work Phone: 12-04-2022 16:09-0400 Body temperature 97.9 [degF] Patricia Beal LPN [facility]; [facility] Work Phone: 12-04-2022 16:090400 Body weight 82.33 kg Patricia Beal LPN [facility]; [facility] Work Phone: 12-04-2022 16:090400 Diastolic blood pressure 80 mm[Hg] Patricia Beal LPN [facility]; [facility] Work Phone: Comment on above: Patient Position: Sitting; Cuff Location : Left Arm; Cuff Size: Standard 12-04-2022 16:09-0400 Heart rate 63 /min Patricia Beal LPN [facility]; [facility] Work Phone: Comment on above: Pattern: Regular 12-04-2022 16:09-0400 Respiratory rate 16 /min Patricia Beal LPN [facility]; [facility] Work Phone: Comment on above: Pattern: Unlabored 12-04-2022 16:09-0400 SaO2% (BldA) [Mass fraction] 96 % Patricia Beal LPN [facility]; [facility] Work Phone: Comment on above: Room air 12-04-2022 16:09-0400 Systolic blood pressure 128 mm[Hg] Patricia Beal SENIOR PRINCIPAL SOFTWARE ENGINEER [facility]; [facility] Work Phone: Comment on above: Patient Position: Sitting; Cuff Location : Left Arm; Cuff Size: Standard 08-12-2022 09:31-0400 Body height 158.75 cm Estefania Slarb SENIOR PRINCIPAL SOFTWARE ENGINEER [facility]; [facility] Work Phone: 08-12-2022 09:31-0400 Body mass index (BMI) [Ratio] 33.12 kg/m2 Estefania Slarb SENIOR PRINCIPAL SOFTWARE ENGINEER [facility]; [facility] Work Phone: 08-12-2022 09:31-0400 Body surface area Derived from formula 1.86 m2 Estefania Slarb SENIOR PRINCIPAL SOFTWARE ENGINEER [facility]; [facility] Work Phone: 08-12-2022 09:31-0400 Body temperature 96.9 [degF] Estefania Slarb SENIOR PRINCIPAL SOFTWARE ENGINEER [facility]; [facility] Work Phone: Comment on above: Method: Temporal 08-12-2022 09:31-0400 Body weight 83.46 kg Estefania Slarb SENIOR PRINCIPAL SOFTWARE ENGINEER [facility]; [facility] Work Phone: 08-12-2022 09:31-0400 Diastolic blood pressure 82 mm[Hg] Estefania Slarb SENIOR PRINCIPAL SOFTWARE ENGINEER [facility]; [facility] Work Phone: Comment on above: Patient Position: Sitting; Cuff Location : Left Arm; Cuff Size: Standard 08-12-2022 09:31-0400 Heart rate 57 /min Estefania Slarb SENIOR PRINCIPAL SOFTWARE ENGINEER [facility]; [facility] Work Phone: Comment on above: Pattern: Regular 08-12-2022 09:31-0400 Respiratory rate 17 /min Estefania Slarb SENIOR PRINCIPAL SOFTWARE ENGINEER [facility]; [facility] Work Phone: Comment on above: Pattern: Unlabored 08-12-2022 09:31-0400 SaO2% (BldA) [Mass fraction] 98 % Estefania Slarb SENIOR PRINCIPAL SOFTWARE ENGINEER [facility]; [facility] Work Phone: Comment on above: Room air 08-12-2022 09:31-0400 Systolic blood pressure 124 mm[Hg] Estefania Johnson [facility]; [facility] Work Phone: Comment on above: Patient Position: Sitting; Cuff Location : Left Arm; Cuff Size: Standard 05-23-2022 11:57-0500 Body height 158.75 cm Mary Arreola [facility]; [facility] Work Phone: 05-23-2022 11:57-0500 Body mass index (BMI) [Ratio] 33.48 kg/m2 Mary Arreola [facility]; [facility] Work Phone: 05-23-2022 11:57-0500 Body surface area Derived from formula 1.86 m2 Mary Arreola [facility]; [facility] Work Phone: 05-23-2022 11:57-0500 Body temperature 96.9 [degF] Mary Arreola [facility]; [facility] Work Phone: Comment on above: Method: Thermal Scan 05-23-2022 11:57-0500 Body weight 84.37 kg Mary Arreola [facility]; [facility] Work Phone: 05-23-2022 11:57-0500 Diastolic blood pressure 72 mm[Hg] Mary Arreola [facility]; [facility] Work Phone: Comment on above: Patient Position: Sitting; Cuff Location : Left Arm; Cuff Size: Standard 05-23-2022 11:57-0500 Respiratory rate 16 /min Mary Arreola [facility]; [facility] Work Phone: Comment on above: Pattern: Unlabored 05-23-2022 11:57-0500 Systolic blood pressure 112 mm[Hg] Mary Arreola [facility]; [facility] Work Phone: Comment on above: Patient Position: Sitting; Cuff Location : Left Arm; Cuff Size: Standard 05-17-2022 11:41-0500 Body height 158.75 cm [facility]; [facility] Work Phone: 05-17-2022 11:41-0500 Body mass index (BMI) [Ratio] 33.48 kg/m2 Mary [facility]; [facility] Work Phone: 05-17-2022 11:41-0500 Body surface area Derived from formula 1.86 m2 Mary [facility]; [facility] Work Phone: 05-17-2022 11:41-0500 Body temperature 97.7 [degF] [facility]; [facility] Work Phone: Comment on above: Method: Thermal Scan 05-17-2022 11:41-0500 Body weight 84.37 kg [facility]; [facility] Work Phone: 05-17-2022 11:41-0500 Diastolic blood pressure 68 mm[Hg] [facility]; [facility] Work Phone: Comment on above: Patient Position: Sitting; Cuff Location : Left Arm; Cuff Size: Standard 05-17-2022 11:41-0500 Respiratory rate 16 /min [facility]; [facility] Work Phone: Comment on above: Pattern: Unlabored 05-17-2022 11:41-0500 Systolic blood pressure 118 mm[Hg] [facility]; [facility] Work Phone: Comment on above: Patient Position: Sitting; Cuff Location : Left Arm; Cuff Size: Standard 02-11-2022 11:00-0500 Body height 158.75 cm [facility]; [facility] Work Phone: 02-11-2022 11:00-0500 Body mass index (BMI) [Ratio] 33.48 kg/m2 [facility]; [facility] Work Phone: 02-11-2022 11:00-0500 Body surface area Derived from formula 1.86 m2 Andra Washington [facility]; [facility] Work Phone: 02-11-2022 11:00-0500 Body temperature 96.8 [degF] Andra Washington [facility] Comprehensiv e [facility]; [facility] Work Phone: 02-11-2022 11:00-0500 Body weight 84.37 kg Andra Washington [facility]; [facility] Work Phone: 02-11-2022 11:00-0500 Diastolic blood pressure 80 mm[Hg] Andra Washington [facility]; [facility] Work Phone: Comment on above: Patient Position: Sitting; Cuff Location : Left Arm; Cuff Size: Standard 02-11-2022 11:00-0500 Heart rate 72 /min Andra Washington [facility]; [facility] Work Phone: Comment on above: Pattern: Regular 02-11-2022 11:00-0500 Respiratory rate 16 /min Andra Washington [facility] Comprehensiv e [facility]; [facility] Work Phone: Comment on above: Pattern: Unlabored 02-11-2022 11:00-0500 SaO2% (BldA) [Mass fraction] 98 % Andra Washington [facility]; [facility] Work Phone: Comment on above: Room air 02-11-2022 11:00-0500 Systolic blood pressure 160 mm[Hg] Andra Washington [facility]; [facility] Work Phone: Comment on above: Patient Position: Sitting; Cuff Location : Left Arm; Cuff Size: Standard 11-07-2021 17:39-0400 Body temperature 97.9 [degF] Dr. Jailene Michaels Work Phone: [facility] Work Phone: 11-07-2021 17:39-0400 Diastolic blood pressure 72 mm[Hg] Dr. Jailene Michaels Work Phone: [facility] Work Phone: 11-07-2021 17:39-0400 Heart rate 55 /min Dr. Jailene Michaels Work Phone: [facility] Work Phone: 11-07-2021 17:39-0400 Respiratory rate 18 /min Dr. Jailene Michaels Work Phone: [facility] Work Phone: 11-07-2021 17:39-0400 SaO2% (BldA) [Mass fraction] 97 % Dr. Jailene Michaels Work Phone: [facility] Work Phone: 11-07-2021 17:39-0400 Systolic blood pressure 121 mm[Hg] Dr. Jailene Michaels Work Phone: [facility] Work Phone: 11-07-2021 16:41-0400 Body height 157.[address] Jailene Michaels Work Phone: [facility] Work Phone: 11-07-2021 16:41-0400 Body mass index (BMI) [Ratio] 32.9 kg/m2 Dr. Jailene Michaels Work Phone: [facility] Work Phone: 11-07-2021 16:41-0400 Body weight 81.[address] Jailene Michaels Work Phone: [facility] Work Phone: 11-07-2021 09:41-0400 Body height 158.75 cm Debra Pro CNP Work Phone: [facility]; [facility] Work Phone: Comment on above: virtual, reported by pt 11-07-2021 09:41-0400 Body mass index (BMI) [Ratio] 32.22 kg/m2 Debra Pro CNP Work Phone: [facility]; [facility] Work Phone: Comment on above: virtual, reported by pt 11-07-2021 09:41-0400 Body surface area Derived from formula 1.83 m2 Debra Pro CNP Work Phone: [facility]; [facility] Work Phone: Comment on above: virtual, reported by pt 11-07-2021 09:41-0400 Body temperature 99 [degF] Debra Pro DISTRIBUTION COORDINATOR Work Phone: [facility]; [facility] Work Phone: Comment on above: Method: Oral virtual, reported by pt 11-07-2021 09:41-0400 Body weight 81.19 kg Debra Pro DISTRIBUTION COORDINATOR Work Phone: [facility]; [facility] Work Phone: Comment on above: virtual, reported by pt 11-07-2021 09:41-0400 SaO2% (BldA) [Mass fraction] 96 % Debra Pro [facility] Work Phone: [facility]; [facility] Work Phone: Comment on above: Room air virtual, reported by pt 08-16-2021 12:17-0400 Body height 158.75 cm Ashley Marie MA [facility]; [facility] Work Phone: 08-16-2021 12:17-0400 Body mass index (BMI) [Ratio] 32.22 kg/m2 Ashley Marie MA [facility]; [facility] Work Phone: 08-16-2021 12:170400 Body surface area Derived from formula 1.83 m2 Ashley Marie MA [facility]; [facility] Work Phone: 08-16-2021 12:17-040 Body temperature 97.1 [degF] Ashley Marie MA [facility]; [facility] Work Phone: Comment on above: Method: Temporal 08-16-2021 12:17-0400 Body weight 81.19 kg Ashley Marie MA [facility]; [facility] Work Phone: 08-16-2021 12:17-0400 Diastolic blood pressure 72 mm[Hg] Ashley Marie MA [facility]; [facility] Work Phone: Comment on above: Patient Position: Sitting; Cuff Location : Left Arm; Cuff Size: Standard 08-16-2021 12:17-0400 Heart rate 83 /min Ashley Marei MA [facility]; [facility] Work Phone: Comment on above: Pattern: Regular 08-16-2021 12:17-0400 Respiratory rate 16 /min Ashley Marie MA [facility]; [facility] Work Phone: Comment on above: Pattern: Unlabored 08-16-2021 12:17-0400 SaO2% (BldA) [Mass fraction] 99 % Ashley Marie MA [facility]; [facility] Work Phone: Comment on above: Room air 08-16-2021 12:17-0400 Systolic blood pressure 110 mm[Hg] Ashley Marie MA [facility]; [facility] Work Phone: Comment on above: Patient Position: Sitting; Cuff Location : Left Arm; Cuff Size: Standard 06-11-2021 10:54-0400 Body height 158.75 cm Emily Zuniga [facility]; [facility] Work Phone: 06-11-2021 10:54-0400 Body mass index (BMI) [Ratio] 32.22 kg/m2 Emily Zuniga [facility]; [facility] Work Phone: 06-11-2021 10:54-0400 Body surface area Derived from formula 1.83 m2 Emily Zuniga [facility]; [facility] Work Phone: 06-11-2021 10:54-0400 Body temperature 97.3 [degF] Emily Zuniga [facility] Comprehensiv e [facility]; [facility] Work Phone: Comment on above: Method: Infrared 06-11-2021 10:54-0400 Body weight 81.19 kg Emily Zuniga [facility]; [facility] Work Phone: 06-11-2021 10:54-0400 Diastolic blood pressure 70 mm[Hg] Emily Zuniga [facility]; [facility] Work Phone: Comment on above: Patient Position: Sitting; Cuff Location : Left Arm; Cuff Size: Standard 06-11-2021 10:54-0400 Heart rate 63 /min Emily Zuniga [facility]; [facility] Work Phone: Comment on above: Pattern: Regular 06-11-2021 10:54-0400 Respiratory rate 18 /min Emily Zuniga [facility] Comprehensiv e [facility]; [facility] Work Phone: Comment on above: Pattern: Unlabored 06-11-2021 10:54-0400 SaO2% (BldA) [Mass fraction] 99 % Emily Zuniga [facility]; [facility] Work Phone: Comment on above: Room air 06-11-2021 10:54-0400 Systolic blood pressure 102 mm[Hg] Emily Zuniga [facility]; [facility] Work Phone: Comment on above: Patient Position: Sitting; Cuff Location : Left Arm; Cuff Size: Standard 05-16-2021 08:22-0500 Body height 158.75 cm Emily Zuniga [facility]; [facility] Work Phone: Comment on above: no vs taken as this is phone encounter d ue to covid 05-16-2021 08:22-0500 Body mass index (BMI) [Ratio] 31.5 kg/m2 Emily Zuniga [facility]; [facility] Work Phone: Comment on above: no vs taken as this is phone encounter d ue to covid 05-16-2021 08:22-0500 Body surface area Derived from formula 1.82 m2 Emily Zuniga [facility]; [facility] Work Phone: Comment on above: no vs taken as this is phone encounter d ue to covid 05-16-2021 08:22-0500 Body weight 79.38 kg Emily Zuniga CMA [facility]; [facility] Work Phone: Comment on above: no vs taken as this is phone encounter d gail to covdelia 01-29-2021 10:23-0500 Body height 158.75 cm Estefania Slarb SENIOR PRINCIPAL SOFTWARE ENGINEER [facility]; [facility] Work Phone: 01-29-2021 10:23-0500 Body mass index (BMI) [Ratio] 31.5 kg/m2 Estefania Slarb SENIOR PRINCIPAL SOFTWARE ENGINEER [facility]; [facility] Work Phone: 01-29-2021 10:23-0500 Body surface area Derived from formula 1.82 m2 Estefania Slarb SENIOR PRINCIPAL SOFTWARE ENGINEER [facility]; [facility] Work Phone: 01-29-2021 10:23-0500 Body temperature 97.1 [degF] Estefania Slarb SENIOR PRINCIPAL SOFTWARE ENGINEER [facility]; [facility] Work Phone: 01-29-2021 10:23-0500 Body weight 79.38 kg Estefania Slarb SENIOR PRINCIPAL SOFTWARE ENGINEER [facility]; [facility] Work Phone: 01-29-2021 10:23-0500 Diastolic blood pressure 76 mm[Hg] Estefania Slarb SENIOR PRINCIPAL SOFTWARE ENGINEER [facility]; [facility] Work Phone: Comment on above: Patient Position: Sitting; Cuff Location : Left Arm; Cuff Size: Standard 01-29-2021 10:23-0500 Heart rate 67 /min Estefania Slarb SENIOR PRINCIPAL SOFTWARE ENGINEER [facility]; [facility] Work Phone: Comment on above: Pattern: Regular 01-29-2021 10:23-0500 Respiratory rate 16 /min Estefania Slarb SENIOR PRINCIPAL SOFTWARE ENGINEER [facility]; [facility] Work Phone: Comment on above: Pattern: Unlabored 01-29-2021 10:23-0500 SaO2% (BldA) [Mass fraction] 98 % Estefania Slarb SENIOR PRINCIPAL SOFTWARE ENGINEER [facility]; [facility] Work Phone: Comment on above: Room air 01-29-2021 10:23-0500 Systolic blood pressure 118 mm[Hg] Estefania Johnson SENIOR PRINCIPAL SOFTWARE ENGINEER [facility]; [facility] Work Phone: Comment on above: Patient Position: Sitting; Cuff Location : Left Arm; Cuff Size: Standard 12-11-2020 11:08-0400 Body height 158.75 cm Emily Zuniga [facility]; [facility] Work Phone: 12-11-2020 11:08-0400 Body mass index (BMI) [Ratio] 31.76 kg/m2 Emily Zuniga [facility]; [facility] Work Phone: 12-11-2020 11:08-0400 Body surface area Derived from formula 1.82 m2 Emily Zuniga [facility]; [facility] Work Phone: 12-11-2020 11:08-0400 Body temperature 97.1 [degF] Emily Zuniga [facility] Comprehensiv e [facility]; [facility] Work Phone: Comment on above: Method: Infrared 12-11-2020 11:08-0400 Body weight 80.04 kg Emily Zuniga [facility]; [facility] Work Phone: 12-11-2020 11:08-0400 Diastolic blood pressure 80 mm[Hg] Emily Zuniga [facility]; [facility] Work Phone: Comment on above: Patient Position: Sitting; Cuff Location : Left Arm; Cuff Size: Standard 12-11-2020 11:08-0400 Heart rate 65 /min Emily Zuniga [facility]; [facility] Work Phone: Comment on above: Pattern: Regular 12-11-2020 11:08-0400 Respiratory rate 16 /min Emily Zuniga [facility] Comprehensiv e [facility]; [facility] Work Phone: Comment on above: Pattern: Unlabored 12-11-2020 11:08-0400 SaO2% (BldA) [Mass fraction] 95 % Emily Zuniga [facility]; [facility] Work Phone: Comment on above: Room air 12-11-2020 11:08-0400 Systolic blood pressure 117 mm[Hg] Emily Zuniga [facility]; [facility] Work Phone: Comment on above: Patient Position: Sitting; Cuff Location : Left Arm; Cuff Size: Standard 08-31-2020 12:43-0400 Body height 158.75 cm [facility]; [facility] Work Phone: 08-31-2020 12:43-0400 Body mass index (BMI) [Ratio] 31.76 kg/m2 [facility]; [facility] Work Phone: 08-31-2020 12:43-0400 Body surface area Derived from formula 1.82 m2 [facility]; [facility] Work Phone: 08-31-2020 12:43-0400 Body temperature 96.9 [degF] [facility]; [facility] Work Phone: Comment on above: Method: Thermal Scan 08-31-2020 12:43-0400 Body weight 80.04 kg [facility]; [facility] Work Phone: 08-31-2020 12:43-0400 Diastolic blood pressure 84 mm[Hg] [facility]; [facility] Work Phone: Comment on above: Patient Position: Sitting; Cuff Location : Left Arm; Cuff Size: Standard 08-31-2020 12:43-0400 Heart rate 51 /min [facility]; [facility] Work Phone: Comment on above: Pattern: Regular 08-31-2020 12:43-0400 Respiratory rate 16 /min [facility]; [facility] Work Phone: Comment on above: Pattern: Unlabored 08-31-2020 12:43-0400 SaO2% (BldA) [Mass fraction] 93 % [facility]; [facility] Work Phone: Comment on above: Room air 08-31-2020 12:43-0400 Systolic blood pressure 130 mm[Hg] [facility]; [facility] Work Phone: Comment on above: Patient Position: Sitting; Cuff Location : Left Arm; Cuff Size: Standard 08-10-2020 07:27-0400 Body height 158.75 cm [facility]; [facility] Work Phone: 08-10-2020 07:27-0400 Body mass index (BMI) [Ratio] 31.76 kg/m2 [facility]; [facility] Work Phone: 08-10-2020 07:27-040 Body surface area Derived from formula 1.82 m2 [facility]; [facility] Work Phone: 08-10-2020 07:27-0400 Body temperature 96.9 [degF] [facility] Medicine; [facility] Work Phone: Comment on above: Method: Thermal Scan 08-10-2020 07:27-0400 Body weight 80.04 kg [facility]; [facility] Work Phone: 08-10-2020 07:27-0400 Diastolic blood pressure 80 mm[Hg] [facility]; [facility] Work Phone: Comment on above: Patient Position: Sitting; Cuff Location : Left Arm; Cuff Size: Standard 08-10-2020 07:27-0400 Heart rate 67 /min [facility]; [facility] Work Phone: Comment on above: Pattern: Regular 08-10-2020 07:27-0400 Respiratory rate 16 /min [facility]; [facility] Work Phone: Comment on above: Pattern: Unlabored 08-10-2020 07:27-0400 SaO2% (BldA) [Mass fraction] 97 % [facility]; [facility] Work Phone: Comment on above: Room air 08-10-2020 07:27-0400 Systolic blood pressure 136 mm[Hg] Krista [facility]; [facility] Work Phone: Comment on above: Patient Position: Sitting; Cuff Location : Left Arm; Cuff Size: Standard 07-20-2020 07:42-0400 Body height 158.75 cm [facility]; [facility] Work Phone: 07-20-2020 07:42-0400 Body mass index (BMI) [Ratio] 31.76 kg/m2 [facility]; [facility] Work Phone: 07-20-2020 07:42-0400 Body surface area Derived from formula 1.82 m2 [facility]; [facility] Work Phone: 07-20-2020 07:42-0400 Body temperature 97.1 [degF] Patricia Emigdio [facility]; [facility] Work Phone: Comment on above: Method: Infrared 07-20-2020 07:42-0400 Body weight 80.04 kg [facility]; [facility] Work Phone: 07-20-2020 07:42-0400 Diastolic blood pressure 78 mm[Hg] Patricia Emigdio [facility]; [facility] Work Phone: Comment on above: Patient Position: Sitting; Cuff Location : Left Arm; Cuff Size: Standard 07-20-2020 07:42-0400 Heart rate 57 /min Patricia Beal [facility]; [facility] Work Phone: Comment on above: Pattern: Regular 07-20-2020 07:42-0400 Respiratory rate 16 /min Patricia Beal [facility]; [facility] Work Phone: Comment on above: Pattern: Unlabored 07-20-2020 07:42-0400 SaO2% (BldA) [Mass fraction] 98 % Patricia Beal [facility]; [facility] Work Phone: Comment on above: Room air 07-20-2020 07:42-0400 Systolic blood pressure 128 mm[Hg] Particia Beal LPN [facility]; [facility] Work Phone: Comment on above: Patient Position: Sitting; Cuff Location : Left Arm; Cuff Size: Standard 06-29-2020 07:32-0400 BMI (Body Mass Index) 30.32 kg/m2 Jailene Xenia [facility] Internal [facility]; [facility] Work Phone: 06-29-2020 07:32-0400 BMI (Body Mass Index) 31.76 kg/m2 Emily Gravius [facility]; [facility] Work Phone: 06-29-2020 07:32-0400 Body Temperature 97.2 [degF] Emily Gravius [employer] Comprehensiv e Internal Medicine; [facility] Work Phone: Comment on above: Method: Infrared 06-29-2020 07:32-0400 Body weight 76.41 kg Jailene Mauroon [facility]; [facility] Work Phone: 06-29-2020 07:32-0400 Body weight 80.04 kg Emily Gravius [facility]; [facility] Work Phone: 06-29-2020 07:32-0400 BP Diastolic 82 mm[Hg] Emily Gravius [facility]; [facility] Work Phone: Comment on above: Patient Position: Sitting; Cuff Location : Left Arm; Cuff Size: Standard 06-29-2020 07:32-0400 BP Systolic 132 mm[Hg] Emily Gravius [facility]; [facility] Work Phone: Comment on above: Patient Position: Sitting; Cuff Location : Left Arm; Cuff Size: Standard 06-29-2020 07:32-0400 BSA (Body Surface Area) 1.79 m2 Jailene Michaels [facility] Medicine; [facility] Work Phone: 06-29-2020 07:32-0400 BSA (Body Surface Area) 1.82 m2 Emily Gravius [facility]; [facility] Work Phone: 06-29-2020 07:32-0400 Height 158.75 cm Emily Zuniga [facility]; [facility] Work Phone: 06-29-2020 07:32-0400 Pulse (Heart Rate) 67 /min Emily Zuniga [facility] Comprehens eliz Internal Medicine; [facility] Work Phone: Comment on above: Pattern: Regular 06-29-2020 07:32-0400 Pulse Oximetry 97 % Jailene Michaels [facility]; [facility] Work Phone: Comment on above: Room air 06-29-2020 07:32-0400 Respiratory Rate 16 /min Emily Zuniga [facility] Comprehensiv e Internal Medicine; [facility] Work Phone: Comment on above: Pattern: Unlabored 06-29-2020 07:32-0400 SaO2% (BldA) [Mass fraction] 97 % Emily Zuniga [facility]; [facility] Work Phone: Comment on above: Room air 06-07-2020 13:12-0400 BMI (Body Mass Index) 30.32 kg/m2 [facility]; [facility] Work Phone: 06-07-2020 13:12-0400 Body weight 76.41 kg [facility]; [facility] Work Phone: 06-07-2020 13:12-0400 BP Diastolic 101 mm[Hg] [facility]; [facility] Work Phone: Comment on above: Patient Position: Sitting; Cuff Location : Left Arm; Cuff Size: Standard 06-07-2020 13:12-0400 BP Systolic 141 mm[Hg] [facility]; [facility] Work Phone: Comment on above: Patient Position: Sitting; Cuff Location : Left Arm; Cuff Size: Standard 06-07-2020 13:12-0400 BSA (Body Surface Area) 1.79 m2 [facility]; [facility] Work Phone: 06-07-2020 13:12-0400 Height 158.75 cm [facility]; [facility] Work Phone: 05-23-2020 14:07-0500 BMI (Body Mass Index) 30.32 kg/m2 [facility]; [facility] Work Phone: Comment on above: Rechecked 142/88 05-23-2020 14:07-0500 Body weight 76.41 kg [facility]; [facility] Work Phone: Comment on above: Rechecked 142/88 05-23-2020 14:07-0500 BP Diastolic 92 mm[Hg] [facility]; [facility] Work Phone: Comment on above: Patient Position: Sitting; Cuff Location : Left Arm; Cuff Size: Standard Rechecked 142/88 05-23-2020 14:07-0500 BP Systolic 140 mm[Hg] [facility]; [facility] Work Phone: Comment on above: Patient Position: Sitting; Cuff Location : Left Arm; Cuff Size: Standard Rechecked 142/88 05-23-2020 14:07-0500 BSA (Body Surface Area) 1.79 m2 [facility]; [facility] Work Phone: Comment on above: Rechecked 142/88 05-23-2020 14:07-0500 Height 158.75 cm [facility]; [facility] Work Phone: Comment on above: Rechecked 142/88 03-08-2020 10:01-0500 BMI (Body Mass Index) 30.32 kg/m2 Jailene Mauroon DO Work Phone: [facility]; [facility] Work Phone: Comment on above: notall- vs taken as this is phone encoun ter due to covid 03-08-2020 10:01-0500 Body Temperature 96.2 [degF] Jailene Michaels DO Work Phone: [facility]; [facility] Work Phone: Comment on above: Method: Infrared notall- vs taken as this is phone encounter due to covid 03-08-2020 10:01-0500 Body weight 76.41 kg Jailene Michaels DO Work Phone: [facility]; [facility] Work Phone: Comment on above: notall- vs taken as this is phone encoun ter due to covid 03-08-2020 10:01-0500 BP Diastolic 72 mm[Hg] Jailene Michaels DO Work Phone: [facility]; [facility] Work Phone: Comment on above: Patient Position: Sitting notall- vs taken as this is phone encounter due to covid 03-08-2020 10:01-0500 BP Systolic 118 mm[Hg] Jailene Michaels DO Work Phone: [facility]; [facility] Work Phone: Comment on above: Patient Position: Sitting notall- vs taken as this is phone encounter due to covid 03-08-2020 10:01-0500 BSA (Body Surface Area) 1.79 m2 Jailene Michaels DO Work Phone: [facility]; [facility] Work Phone: Comment on above: notall- vs taken as this is phone encoun ter due to covid 03-08-2020 10:01-0500 Height 158.75 cm Jailene Michaels DO Work Phone: [facility]; [facility] Work Phone: Comment on above: notall- vs taken as this is phone encoun ter due to covid 03-08-2020 10:01-0500 Pulse Oximetry 99 % Jailene Michaels [facility]; [facility] Work Phone: Comment on above: Room air notall- vs taken as this is phone encounter due to covid 03-08-2020 10:01-0500 SaO2% (BldA) [Mass fraction] 99 % Jailene Michaels DO Work Phone: [facility]; [facility] Work Phone: Comment on above: Room air notall- vs taken as this is phone encounter due to covid 12-23-2019 07:59-0400 BMI (Body Mass Index) 30.06 kg/m2 Jailene Michaels [facility] Medicine Work Phone: 12-23-2019 07:59-0400 BMI (Body Mass Index) 30.43 kg/m2 [facility] Internal Medicine Work Phone: 12-23-2019 07:59-0400 Body Temperature 97.2 [degF] [facility] Internal Medicine Work Phone: Comment on above: Method: Thermal Scan 12-23-2019 07:59-0400 Body weight 75.76 kg Jailene Michaels [facility] Work Phone: 12-23-2019 07:59-0400 Body weight 76.68 kg [facility] Internal Medicine Work Phone: 12-23-2019 07:59-0400 BP Diastolic 72 mm[Hg] [facility] Internal Medicine Work Phone: Comment on above: Patient Position: Sitting; Cuff Location : Left Arm; Cuff Size: Standard 12-23-2019 07:59-0400 BP Systolic 110 mm[Hg] [facility] Internal Medicine Work Phone: Comment on above: Patient Position: Sitting; Cuff Location : Left Arm; Cuff Size: Standard 12-23-2019 07:59-0400 BSA (Body Surface Area) 1.78 m2 Jailene Michaels [facility] Work Phone: 12-23-2019 07:59-0400 BSA (Body Surface Area) 1.79 m2 [facility] Internal Medicine Work Phone: 12-23-2019 07:59-0400 Height 158.75 cm [facility] Internal Medicine Work Phone: 12-23-2019 07:59-0400 Pulse (Heart Rate) 71 /min Krista [facility] Com[facility] e Internal Medicine Work Phone: Comment on above: Pattern: Regular 12-23-2019 07:59-0400 Pulse Oximetry 98 % Jailene Michaels [facility] Work Phone: Comment on above: Room air 12-23-2019 07:59-0400 Respiratory Rate 16 /min [facility] Internal Medicine Work Phone: Comment on above: Pattern: Unlabored 12-23-2019 07:59-0400 SaO2% (BldA) [Mass fraction] 98 % [facility] Internal Medicine; [facility] Work Phone: Comment on above: Room air 12-08-2019 10:09-0400 BMI (Body Mass Index) 30.06 kg/m2 Emily Zuniga [facility] Work Phone: 12-08-2019 10:09-0400 Body Temperature 97.1 [degF] Emily Zuniga [facility] Comprehensiv e [facility] Medicine Work Phone: Comment on above: Method: Infrared 12-08-2019 10:090400 Body weight 75.76 kg Emily Zuniga [facility] Work Phone: 12-08-2019 10:09-0400 BP Diastolic 82 mm[Hg] Emily Zuniga [facility] Work Phone: Comment on above: Patient Position: Sitting; Cuff Location : Left Arm; Cuff Size: Standard 12-08-2019 10:09-0400 BP Systolic 128 mm[Hg] Emily Zuniga [facility] Work Phone: Comment on above: Patient Position: Sitting; Cuff Location : Left Arm; Cuff Size: Standard 12-08-2019 10:09-0400 BSA (Body Surface Area) 1.78 m2 Emily Zuniga [facility] Work Phone: 12-08-2019 10:09-0400 Height 158.75 cm Emily Zuniga [facility] Work Phone: 12-08-2019 10:09-0400 Pulse (Heart Rate) 53 /min Emily Zuniga [employer] Comprehens el[facility] Internal Medicine Work Phone: Comment on above: Pattern: Regular 12-08-2019 10:040 Pulse Oximetry 97 % Jailene Michaels [facility] Work Phone: Comment on above: Room air 12-08-2019 10:090400 Respiratory Rate 16 /min Emily Zuniga [facility] Comprehensiv e Internal Medicine Work Phone: Comment on above: Pattern: Unlabored 12-08-2019 10:09-0400 SaO2% (BldA) [Mass fraction] 97 % Emily Zuniga [facility]; [facility] Work Phone: Comment on above: Room air 10-11-2019 15:22-0400 BMI (Body Mass Index) 28.98 kg/m2 Dilan Abad LPN [facility] Internal Medicine Work Phone: 10-11-2019 15:22-0400 Body Temperature 96.9 [degF] Dilan Abad LPN [facility] Work Phone: Comment on above: Method: Infrared 10-11-2019 15:22-0400 Body weight 73.04 kg Dilan Abad LPN [facility] Work Phone: 10-11-2019 15:22-0400 BP Diastolic 76 mm[Hg] Dilan Abad LPN [facility] Internal [facility] Work Phone: Comment on above: Patient Position: Sitting; Cuff Location : Left Arm; Cuff Size: Standard 10-11-2019 15:22-0400 BP Systolic 130 mm[Hg] Dilan Abad LPN [facility] Work Phone: Comment on above: Patient Position: Sitting; Cuff Location : Left Arm; Cuff Size: Standard 10-11-2019 15:22-0400 BSA (Body Surface Area) 1.75 m2 Dilan Abad LPN [facility] Internal Medicine Work Phone: 10-11-2019 15:22-0400 Height 158.75 cm Dilan Abad LPN [facility] Work Phone: 10-11-2019 15:22-0400 Pulse (Heart Rate) 80 /min Dilan Abad LPN [facility] Work Phone: Comment on above: Pattern: Regular 10-11-2019 15:22-0400 Pulse Oximetry 98 % Jailene Michaels [facility] Work Phone: Comment on above: Room air 10-11-2019 15:22-0400 Respiratory Rate 16 /min Dilan Abad [facility] Work Phone: Comment on above: Pattern: Unlabored 10-11-2019 15:22-0400 SaO2% (BldA) [Mass fraction] 98 % Dilan Abad [facility]; [facility] Work Phone: Comment on above: Room air 07-21-2019 10:34-0400 BMI (Body Mass Index) 30.06 kg/m2 Emily Zuniga [facility] Work Phone: 07-21-2019 10:34-0400 Body Temperature 96.8 [degF] Emily Zuniga [facility] Comprehensiv e Internal Medicine Work Phone: Comment on above: Method: Temporal 07-21-2019 10:34-0400 Body weight 75.75 kg Emily Zuniga [facility] Work Phone: 07-21-2019 10:34-0400 BP Diastolic 70 mm[Hg] Emily Zuniga [facility] Work Phone: Comment on above: Patient Position: Sitting; Cuff Location : Left Arm; Cuff Size: Standard 07-21-2019 10:34-0400 BP Systolic 103 mm[Hg] Emily Zuniga [facility] Work Phone: Comment on above: Patient Position: Sitting; Cuff Location : Left Arm; Cuff Size: Standard 07-21-2019 10:34-0400 BSA (Body Surface Area) 1.78 m2 Emily Zuniga [facility] Work Phone: 07-21-2019 10:34-0400 Height 158.75 cm Emily Zuniga [facility] Work Phone: 07-21-2019 10:34-0400 Pulse (Heart Rate) 74 /min Emily Zuniga [facility] Comprehens el[facility] Internal Medicine Work Phone: Comment on above: Pattern: Regular 07-21-2019 10:34-0400 Pulse Oximetry 94 % Jailene Michaels [facility] Work Phone: Comment on above: Room air 07-21-2019 10:34-0400 Respiratory Rate 18 /min Emily Zuniga CMA Comprehens[facility] e Internal Medicine Work Phone: Comment on above: Pattern: Unlabored 07-21-2019 10:34-0400 SaO2% (BldA) [Mass fraction] 94 % Emily Zuniga CMA [facility]; [facility] Work Phone: Comment on above: Room air 06-09-2019 09:43-0400 BMI (Body Mass Index) 31.14 kg/m2 Emily Zuniga [employer] [facility] Work Phone: 06-09-2019 09:43-0400 Body Temperature 96.4 [degF] Emily Zuniga CMA Com[facility] Work Phone: Comment on above: Method: Temporal 06-09-2019 09:43-0400 Body weight 78.47 kg Emily Zuniga [facility] Work Phone: 06-09-2019 09:43-0400 BP Diastolic 78 mm[Hg] Emily Zuniga [facility] Work Phone: Comment on above: Patient Position: Sitting; Cuff Location : Left Arm; Cuff Size: Standard 06-09-2019 09:43-0400 BP Systolic 110 mm[Hg] Emily Zuniga [facility] Work Phone: Comment on above: Patient Position: Sitting; Cuff Location : Left Arm; Cuff Size: Standard 06-09-2019 09:43-0400 BSA (Body Surface Area) 1.81 m2 Emily Zuniga [facility] Work Phone: 06-09-2019 09:43-0400 Height 158.75 cm Emily Zuniga [employer] [facility] Work Phone: 06-09-2019 09:43-0400 Pulse (Heart Rate) 78 /min Emily Zuniga [facility] Comprehens eliz Internal Medicine Work Phone: Comment on above: Pattern: Regular 06-09-2019 09:43-0400 Pulse Oximetry 99 % Jailene Michaels [facility] Work Phone: Comment on above: Room air 06-09-2019 09:43-0400 Respiratory Rate 18 /min Emily Zuniga [facility] Comprehensiv e Internal Medicine Work Phone: Comment on above: Pattern: Unlabored 06-09-2019 09:43-0400 SaO2% (BldA) [Mass fraction] 99 % Emily Zuniga [facility]; [facility] Work Phone: Comment on above: Room air 03-26-2019 13:47-0500 BMI (Body Mass Index) 32.76 kg/m2 Dilan Abad LPN [facility] Work Phone: 03-26-2019 13:47-0500 Body Temperature 97.2 [degF] Dilan Abad LPN [facility] Work Phone: Comment on above: Method: Temporal 03-26-2019 13:47-0500 Body weight 82.56 kg Dilan Abad LPN [facility] Work Phone: 03-26-2019 13:47-0500 BP Diastolic 76 mm[Hg] Dilan Abad LPN [facility] Work Phone: Comment on above: Patient Position: Sitting; Cuff Location : Left Arm; Cuff Size: Standard 03-26-2019 13:47-0500 BP Systolic 112 mm[Hg] Dilan Abad LPN [facility] Internal Medicine Work Phone: Comment on above: Patient Position: Sitting; Cuff Location : Left Arm; Cuff Size: Standard 03-26-2019 13:47-0500 BSA (Body Surface Area) 1.85 m2 Dilan Abad LPN [facility] Internal Medicine Work Phone: 03-26-2019 13:47-0500 Height 158.75 cm Dilan Abad LPN [facility] Internal Medicine Work Phone: 03-26-2019 13:47-0500 Pulse (Heart Rate) 72 /min Dilan Abad LPN [facility] Work Phone: Comment on above: Pattern: Regular 03-26-2019 13:47-0500 Pulse Oximetry 95 % Jailene Michaels [facility] Work Phone: Comment on above: Room air 03-26-2019 13:47-0500 Respiratory Rate 16 /min Dilan Abad LPN [facility] Work Phone: Comment on above: Pattern: Unlabored 03-26-2019 13:47-0500 SaO2% (BldA) [Mass fraction] 95 % Dilan Abad [facility] Internal [facility]; [facility] Work Phone: Comment on above: Room air 01-22-2019 08:20-0400 BMI (Body Mass Index) 32.4 kg/m2 Emily Zuniga [facility] Work Phone: 01-22-2019 08:20-0400 Body Temperature 97.2 [degF] Emily Zuniga [facility] Comprehensiv e Internal Medicine Work Phone: Comment on above: Method: Temporal 01-22-2019 08:20-0400 Body weight 81.65 kg Emily Zuniga [facility] Work Phone: 01-22-2019 08:20-0400 BP Diastolic 80 mm[Hg] Emily Zuniga [facility] Work Phone: Comment on above: Patient Position: Sitting; Cuff Location : Left Arm; Cuff Size: Standard 01-22-2019 08:20-0400 BP Systolic 120 mm[Hg] Emily Zuniga [facility] Work Phone: Comment on above: Patient Position: Sitting; Cuff Location : Left Arm; Cuff Size: Standard 01-22-2019 08:20-0400 BSA (Body Surface Area) 1.84 m2 Emily Zuniga [facility] Work Phone: 01-22-2019 08:20-0400 Height 158.75 cm Emily Zuniga [facility] Work Phone: 01-22-2019 08:20-0400 Pulse (Heart Rate) 81 /min Emily Zuniga [facility] Comprehens el[facility] Internal Medicine Work Phone: Comment on above: Pattern: Regular 01-22-2019 08:20-0400 Pulse Oximetry 97 % Jailene Michaels [facility] Work Phone: Comment on above: Room air 01-22-2019 08:20-0400 Respiratory Rate 16 /min Emily Zuniga CMA Comprehens[facility] Internal Medicine Work Phone: Comment on above: Pattern: Unlabored 01-22-2019 08:20-0400 SaO2% (BldA) [Mass fraction] 97 % Emily Zuniga [facility]; [facility] Work Phone: Comment on above: Room air 08-24-2018 12:00-0400 BMI (Body Mass Index) 31.86 kg/m2 Emily Zuniga [facility] Work Phone: 08-24-2018 12:00-0400 Body Temperature 97 [degF] Emily Zuniga [employer] Comprehensiv e Internal Medicine Work Phone: Comment on above: Method: Temporal 08-24-2018 12:00-0400 Body weight 80.29 kg Emily Zuniga [facility] Work Phone: 08-24-2018 12:00-0400 BP Diastolic 81 mm[Hg] Emily Zuniga [facility] Work Phone: Comment on above: Patient Position: Sitting; Cuff Location : Left Arm; Cuff Size: Standard 08-24-2018 12:00-0400 BP Systolic 118 mm[Hg] Emily Zuniga [facility] Comprehensive Internal Medicine Work Phone: Comment on above: Patient Position: Sitting; Cuff Location : Left Arm; Cuff Size: Standard 08-24-2018 12:00-0400 BSA (Body Surface Area) 1.83 m2 Emily Zuniga [facility] Work Phone: 08-24-2018 12:00-0400 Height 158.75 cm Emily Zuniga [employer] [facility] Work Phone: 08-24-2018 12:00-0400 Pulse (Heart Rate) 64 /min Emily Zuniga [employer] Comprehens eliz Internal Medicine Work Phone: Comment on above: Pattern: Regular 08-24-2018 12:00-0400 Pulse Oximetry 94 % Jailene Michaels [facility] Work Phone: Comment on above: Room air 08-24-2018 12:00-0400 Respiratory Rate 18 /min Emily Zuniga CMA Comprehensiv e Internal Medicine Work Phone: Comment on above: Pattern: Unlabored 08-24-2018 12:00-0400 SaO2% (BldA) [Mass fraction] 94 % Emily Zuniga [employer] [facility]; [facility] Work Phone: Comment on above: Room air 08-24-2018 12:00-0400 Weight 80.29 kg Jailene Michaels [facility] Work Phone: 07-13-2018 11:21-0400 BMI (Body Mass Index) 32.4 kg/m2 Yolanda Shah RN [facility] Work Phone: 07-13-2018 11:21-0400 Body Temperature 97.6 [degF] Yolanda Shah RN [facility] Work Phone: Comment on above: Method: Temporal 07-13-2018 11:21-0400 Body weight 81.65 kg Yolanda Shah RN [facility] Work Phone: 07-13-2018 11:21-0400 BP Diastolic 78 mm[Hg] Yolanda Shah RN [facility] Work Phone: Comment on above: Patient Position: Sitting; Cuff Location : Left Arm; Cuff Size: Standard 07-13-2018 11:21-0400 BP Systolic 132 mm[Hg] Yolanda Shah RN [facility] Work Phone: Comment on above: Patient Position: Sitting; Cuff Location : Left Arm; Cuff Size: Standard 07-13-2018 11:21-0400 BSA (Body Surface Area) 1.84 m2 Yolanda Shah RN [facility] Work Phone: 07-13-2018 11:21-0400 Height 158.75 cm Yolanda Shah RN [facility] Work Phone: 07-13-2018 11:21-0400 Pulse (Heart Rate) 72 /min Yolanda Shah RN [facility] Work Phone: Comment on above: Pattern: Regular 07-13-2018 11:21-0400 Pulse Oximetry 98 % Jailene Michaels [facility] Internal Medicine Work Phone: Comment on above: Room air 07-13-2018 11:21-0400 Respiratory Rate 16 /min Yolanda Shah RN [facility] Work Phone: Comment on above: Pattern: Unlabored 07-13-2018 11:21-0400 SaO2% (BldA) [Mass fraction] 98 % Yolanda Shah RN [facility]; [facility] Work Phone: Comment on above: Room air 07-13-2018 11:21-0400 Weight 81.65 kg Jailene Mauroon [facility] Internal Medicine Work Phone: 05-21-2018 10:35-0500 BMI (Body Mass Index) 32.4 kg/m2 Dilan Abad LPN [facility] Work Phone: 05-21-2018 10:35-0500 Body weight 81.65 kg Dilan Abad LPN [facility] Work Phone: 05-21-2018 10:35-0500 BP Diastolic 90 mm[Hg] Dilan Abad LPN [facility] Work Phone: Comment on above: Patient Position: Sitting; Cuff Location : Left Arm; Cuff Size: Standard 05-21-2018 10:35-0500 BP Systolic 142 mm[Hg] Dilan Abad LPN [facility] Internal Medicine Work Phone: Comment on above: Patient Position: Sitting; Cuff Location : Left Arm; Cuff Size: Standard 05-21-2018 10:35-0500 BSA (Body Surface Area) 1.84 m2 Dilan Abad LPN [facility] Internal Medicine Work Phone: 05-21-2018 10:35-0500 Height 158.75 cm Dilan Abad LPN [facility] Work Phone: 05-21-2018 10:35-0500 Pulse (Heart Rate) 63 /min Dilan Abad LPN Comprehensiv e Internal Medicine Work Phone: Comment on above: Pattern: Regular 05-21-2018 10:35-0500 Pulse Oximetry 96 % Jailene Michaels [facility] Work Phone: Comment on above: Room air 05-21-2018 10:35-0500 Respiratory Rate 18 /min Dilan Abad [facility] Internal Medicine Work Phone: Comment on above: Pattern: Unlabored 05-21-2018 10:35-0500 SaO2% (BldA) [Mass fraction] 96 % Dilan Abad [facility]; [facility] Work Phone: Comment on above: Room air 05-21-2018 10:35-0500 Weight 81.65 kg Jailene Michaels [facility] Internal Medicine Work Phone: 05-01-2018 09:47-0500 BMI (Body Mass Index) 30.85 kg/m2 Emily Zuniga [facility] Internal Medicine Work Phone: 05-01-2018 09:47-0500 Body Temperature 97.3 [degF] Emily Zuniga [facility] Comprehensiv e Internal Medicine Work Phone: Comment on above: Method: Temporal 05-01-2018 09:47-0500 Body weight 77.74 kg Emily Zuniga [facility] Medicine Work Phone: 05-01-2018 09:47-0500 BP Diastolic 71 mm[Hg] Emily Zuniga [facility] Medicine Work Phone: Comment on above: Patient Position: Sitting; Cuff Location : Left Arm; Cuff Size: Standard 05-01-2018 09:47-0500 BP Systolic 118 mm[Hg] Emily Zuniga [facility] Medicine Work Phone: Comment on above: Patient Position: Sitting; Cuff Location : Left Arm; Cuff Size: Standard 05-01-2018 09:47-0500 BSA (Body Surface Area) 1.8 m2 Emily Zuniga [facility] Internal Medicine Work Phone: 05-01-2018 09:47-0500 Height 158.75 cm Emily Zuniga [facility] Internal Medicine Work Phone: 05-01-2018 09:47-0500 Pulse (Heart Rate) 62 /min Emily Zuniga CMA Comprehens eliz Internal Medicine Work Phone: Comment on above: Pattern: Regular 05-01-2018 09:47-0500 Pulse Oximetry 97 % Jailene Michaels [facility] Work Phone: Comment on above: Room air 05-01-2018 09:47-0500 Respiratory Rate 16 /min Emily Zuniga [facility] Comprehensiv e Internal Medicine Work Phone: Comment on above: Pattern: Unlabored 05-01-2018 09:47-0500 SaO2% (BldA) [Mass fraction] 97 % Emily Zuniga [facility]; [facility] Work Phone: Comment on above: Room air 05-01-2018 09:47-0500 Weight 77.74 kg Jailene Michaels [facility] Work Phone: 04-02-2018 09:55-0500 BMI (Body Mass Index) 30.85 kg/m2 Emily Zuniga [facility] Internal Medicine Work Phone: Comment on above: pt wears hearing aides had lens replacem ents in 200404-02-2018 09:55-0500 Body Temperature 97.8 [degF] Emily Zuniga [facility] Comprehensiv e Internal Medicine Work Phone: Comment on above: Method: Temporal pt wears hearing aid es had lens replacements in 200404-02-2018 09:55-0500 Body weight 77.74 kg Emily Zuniga [facility] Internal Medicine Work Phone: Comment on above: pt wears hearing aides had lens replacem ents in 200404-02-2018 09:55-0500 BP Diastolic 90 mm[Hg] Emily Zuniga [facility] Internal Medicine Work Phone: Comment on above: Patient Position: Sitting; Cuff Location : Left Arm; Cuff Size: Standard pt wears hearing aid es had lens replacements in 200404-02-2018 09:55-0500 BP Systolic 141 mm[Hg] Emily Zuniga [facility] Medicine Work Phone: Comment on above: Patient Position: Sitting; Cuff Location : Left Arm; Cuff Size: Standard pt wears hearing aid es had lens replacements in 200404-02-2018 09:55-0500 BSA (Body Surface Area) 1.8 m2 Emily Zuniga [facility] Internal Medicine Work Phone: Comment on above: pt wears hearing aides had lens replacem ents in 200404-02-2018 09:55-0500 Height 158.75 cm Emily Zuniga [facility] Internal Medicine Work Phone: Comment on above: pt wears hearing aides had lens replacem ents in 200404-02-2018 09:55-0500 Pulse (Heart Rate) 71 /min Emily Zuniga [facility] Internal Medicine Work Phone: Comment on above: Pattern: Regular pt wears hearing aid es had lens replacements in 200404-02-2018 09:55-0500 Pulse Oximetry 96 % Jailene Michaels [facility] Internal Medicine Work Phone: Comment on above: Room air pt wears hearing aid es had lens replacements in 200404-02-2018 09:55-0500 SaO2% (BldA) [Mass fraction] 96 % Emily Zuniga [facility] Internal Medicine; [facility] Work Phone: Comment on above: Room air pt wears hearing aid es had lens replacements in 200404-02-2018 09:55-0500 Weight 77.74 kg Jailene Michaels [facility] Internal Medicine Work Phone: Comment on above: pt wears hearing aides had lens replacem ents in 200403-20-2018 11:29-0500 BMI (Body Mass Index) 30.85 kg/m2 Yolanda Shah RN [facility] Work Phone: 03-20-2018 11:29-0500 Body Temperature 97.8 [degF] Yolanda Shah RN [facility] Work Phone: Comment on above: Method: Temporal 03-20-2018 11:29-0500 Body weight 77.74 kg Yolanda Shah RN [facility] Work Phone: 03-20-2018 11:29-0500 BP Diastolic 72 mm[Hg] Yolanda Shah RN [facility] Work Phone: Comment on above: Patient Position: Sitting; Cuff Location : Left Arm; Cuff Size: Standard 03-20-2018 11:29-0500 BP Systolic 124 mm[Hg] Yolanda Shah RN [facility] Work Phone: Comment on above: Patient Position: Sitting; Cuff Location : Left Arm; Cuff Size: Standard 03-20-2018 11:29-0500 BSA (Body Surface Area) 1.8 m2 Yolanda Shah RN [facility] Work Phone: 03-20-2018 11:29-0500 Height 158.75 cm Yolanda Shah RN [facility] Work Phone: 03-20-2018 11:29-0500 Pulse (Heart Rate) 68 /min Yolanda Shah RN [facility] Work Phone: Comment on above: Pattern: Regular 03-20-2018 11:29-0500 Pulse Oximetry 97 % Jailene Michaels [facility] Work Phone: Comment on above: Room air 03-20-2018 11:29-0500 Respiratory Rate 16 /min Yolanda Shah RN [facility] Work Phone: Comment on above: Pattern: Unlabored 03-20-2018 11:29-0500 SaO2% (BldA) [Mass fraction] 97 % Yolanda Shah RN [facility]; [facility] Work Phone: Comment on above: Room air 03-20-2018 11:29-0500 Weight 77.74 kg Jailene Xenia [facility] Work Phone: 02-23-2018 14:24-0500 BMI (Body Mass Index) 30.85 kg/m2 Lorna Marshall RN [facility] Work Phone: 02-23-2018 14:24-0500 Body weight 77.74 kg Lorna Marshall RN [facility] Work Phone: 02-23-2018 14:24-0500 BP Diastolic 90 mm[Hg] Lorna Marshall RN [facility] Work Phone: Comment on above: Patient Position: Sitting; Cuff Location : Left Arm; Cuff Size: Large 02-23-2018 14:24-0500 BP Systolic 152 mm[Hg] Lorna Marshall RN [facility] Work Phone: Comment on above: Patient Position: Sitting; Cuff Location : Left Arm; Cuff Size: Large 02-23-2018 14:24-0500 BSA (Body Surface Area) 1.8 m2 Lorna Marshall RN [facility] Work Phone: 02-23-2018 14:24-0500 Height 158.75 cm Lorna Marshall RN [facility] Work Phone: 02-23-2018 14:24-0500 Pulse (Heart Rate) 80 /min Lorna Marshall RN Comprehens eliz Internal Medicine Work Phone: Comment on above: Pattern: Regular 02-23-2018 14:24-0500 Pulse Oximetry 98 % Jailene Michaels [facility] Work Phone: Comment on above: Room air 02-23-2018 14:24-0500 Respiratory Rate 18 /min Lorna Marshall RN Comprehensiv e Internal Medicine Work Phone: Comment on above: Pattern: Unlabored 02-23-2018 14:24-0500 SaO2% (BldA) [Mass fraction] 98 % Lorna Marshall RN [facility]; [facility] Work Phone: Comment on above: Room air 02-23-2018 14:24-0500 Weight 77.74 kg Jailene Michaels [facility] Work Phone: Encounters Encounter Date Encounter Type Care Provider Facility Start: 01-20-2025 End: 01-20-2025 ambulatory JAILENE MICHAELS Facility:[facility] Start: 12-20-2024 End: 12-20-2024 ambulatory JAILENE MICHAELS Facility:[facility] Start: 11-25-2024 End: 11-25-2024 ambulatory JAILENE MICHAELS Facility:[facility] Start: 11-15-2024 End: 11-15-2024 ambulatory Bryant Wang Facility[place] Start: 11-04-2024 End: 11-04-2024 ambulatory JAILENE MICHAELS Facility:[facility] Start: 10-14-2024 End: 10-14-2024 ambulatory HERMELINDO DAVIS Facility:[facility] Start: 09-23-2024 End: 09-23-2024 ambulatory Yair Garcia Facility:[facility] Start: 09-16-2024 End: 09-16-2024 ambulatory HERMELINDO DAVIS Facility:[facility] Start: 08-26-2024 End: 08-26-2024 ambulatory HERMELINDO DAVIS Facility:[facility] Start: 08-10-2024 ambulatory Giovani López Facility:[facility] Start: 08-10-2024 End: 08-10-2024 ambulatory Lasha Fletcher Facility:[facility] Start: 08-05-2024 End: 08-05-2024 ambulatory JAILENE MICHAELS Facility:[facility] Start: 07-20-2024 End: 07-20-2024 ambulatory SELF Facility:[facility] Start: 07-15-2024 End: 07-15-2024 ambulatory Lasha Fletcher Facility:[facility] Start: 06-29-2024 ambulatory Jailene Michaels Facilit y:[facility] Start: 06-29-2024 End: 06-29-2024 ambulatory HERMELINDO Gladis RYAN Facility:[facility] Start: 05-18-2024 End: 05-18-2024 ambulatory JAILENE MICHAELS Facility:[facility] Start: 05-03-2024 End: 05-04-2024 ambulatory Jailene Michaels Facility:[facility] Start: 04-27-2024 End: 04-27-2024 ambulatory JAILENE MICHAELS Facility:[facility] Start: 04-13-2024 End: 04-13-2024 ambulatory JAILENE MICHAELS Facility:[facility] Start: 03-30-2024 End: 03-30-2024 ambulatory JAILENE MICHAELS Facility:[facility] Start: 03-02-2024 ambulatory Jailenekumar Michaels Facilit y:[facility] Start: 03-02-2024 End: 03-02-2024 ambulatory Jailene Michaels Facility:[facility] Start: 02-12-2024 End: 02-12-2024 ambulatory Jailene Michaels Facility:[facility] Start: 02-11-2024 End: 02-11-2024 ambulatory Jailene Michaels Facility:[facility] Start: 12-02-2023 End: 12-02-2023 ambulatory Jailene Michaels Facility:[facility] Start: 12-05-2022 End: 12-05-2022 ambulatory [facility] Work Phone: Start: 12-05-2022 End: 12-05-2022 Patient encounter procedure [facility] Work Phone: Start: 12-04-2022 End: 12-04-2022 Office outpatient visit 15 minutes Jailene Michaels DO Work Phone: [facility] Start: 08-29-2022 End: 08-29-2022 Patient encounter procedure [facility] Work Phone: Start: 08-12-2022 End: 08-14-2022 Office outpatient visit 25 minutes Jailene Michaels DO Work Phone: [facility] Start: 07-11-2022 End: 07-11-[address] Jailene Michaels Work Phone: [facility] Work Phone: Start: 07-11-2022 End: 07-11-[address] Jailene Michaels Work Phone: [facility]-Physical Therapy Start: 06-06-2022 End: 06-06-[address] Jailene Michaels Work Phone: [facility] Work Phone: Start: 06-06-2022 End: 06-06-[address] Jailene Michaels Work Phone: [facility] Start: 06-04-[address] Eveline Michaels Work Phone: [facility]-Physical Therapy Start: 05-30-2022 End: 05-30-[address] Jailene Michaels Work Phone: [facility]-Outpatient Breast Imaging Start: 05-23-2022 End: 05-23-2022 Office outpatient visit 15 minutes Jailene Michaels DO Work Phone: [facility] Start: 05-23-2022 Review Jailene Mauroo n DO Work Phone: [facility] Start: 05-17-2022 ambulatory Jailene Michaels DO Comp rehensive Internal Med Start: 05-17-2022 End: 05-17-[address] Jailene Michaels Work Phone: [facility] Radiology Start: 05-17-2022 End: 05-17-2022 Office outpatient visit 15 minutes Jailene Michaels DO Work Phone: [facility] Start: 02-11-2022 End: 02-11-2022 Patient encounter procedure Jailene Michaels DO Work Phone: [facility] Start: 02-11-2022 End: 02-11-2022 Periodic preventive med est patient 65yrs& older Jailene Michaels DO Work Phone: [facility] Start: 02-11-2022 Patient encounter procedure Andra Washington CMA [facility] Start: 02-11-2022 Review Jailene Mauroo n DO Work Phone: [facility] Start: 02-04-2022 End: 02-04-[address] Jailene Michaels Work Phone: [facility] Work Phone: Start: 02-04-2022 End: 02-04-[address] Jailene Michaels Work Phone: [facility] Start: 12-31-2021 End: 12-31-2021 Phone Encounter Jailene Michaels DO Work Phone: [facility] Start: 11-07-2021 End: 11-07-[address] Jailene Michaels Work Phone: [facility]-Medical Surgical 3 Outp Start: 11-07-2021 End: 11-07-[address] Jailene Michaels Work Phone: [facility]-Pulmonary Med [facility] Start: 11-07-2021 End: 11-07-2021 Annotation/Addendum Jailene Xenia DO Work Phone: [facility] Start: 11-07-2021 End: 11-07-2021 Office outpatient visit 15 minutes Jailene Xenia DO Work Phone: [facility] Start: 08-16-2021 End: 08-16-2021 Office outpatient visit 10 minutes Jailene Xenia DO Work Phone: [facility] Start: 06-11-2021 End: 06-11-2021 Office outpatient visit 15 minutes Jailene Xenia DO Work Phone: [facility] Start: 05-16-2021 End: 05-16-2021 Office outpatient visit 15 minutes Jailene Xenia DO Work Phone: [facility] Start: 04-24-2021 End: 04-24-2021 Annotation/Addendum Jailene Xenia DO Work Phone: [facility] Start: 01-29-2021 End: 01-29-2021 Patient encounter procedure Estefania Johnson LPN [facility]; [facility] Work Phone: Start: 01-29-2021 End: 01-29-2021 Periodic preventive med est patient 65yrs& older Jailene Xenia DO Work Phone: [facility] Start: 12-11-2020 End: 12-11-2020 Office outpatient visit 25 minutes Jailene Xenia DO Work Phone: [facility] Start: 08-31-2020 End: 09-01-2020 Office outpatient visit 15 minutes Jailene Xenia DO Work Phone: [facility] Start: 08-10-2020 End: 08-10-2020 Office outpatient visit 15 minutes Jailene Michaels DO Work Phone: [facility] Start: 08-10-2020 Review Jailene Mauroo n DO Work Phone: [facility] Start: 07-20-2020 End: 07-20-2020 Office outpatient visit 10 minutes Jailene Michaels DO Work Phone: [facility] Start: 07-20-2020 Review Jailene Mauroo n DO Work Phone: [facility] Start: 06-29-2020 End: 06-29-2020 Office outpatient visit 25 minutes Jailene Michaels [facility] Start: 06-29-2020 Review Jailene Michaels [facility]pre[facility] ens[facility] Medicine Start: 06-15-2020 End: 06-15-2020 Annotation/Addendum Jailene Michaels [facility] Start: 06-07-2020 End: 06-07-2020 Office outpatient visit 25 minutes Jailene Michaels [facility] Start: 05-24-2020 End: 05-24-2020 Office outpatient visit 10 minutes Jailene Michaels [facility] Start: 05-24-2020 Review Jailene Michaels Compreh ens[facility] Internal Medicine Start: 05-23-2020 End: 05-24-2020 Office outpatient visit 10 minutes Jailene Michaels [facility] Start: 05-23-2020 Review Jailene Michaels Compreh ens[facility] Internal Medicine Start: 03-08-2020 End: 03-08-2020 Office outpatient visit 25 minutes Jailene Michaels [facility] Start: 12-23-2019 End: 12-23-2019 Patient encounter procedure Krista Botello LPN [facility]; [facility] Work Phone: Start: 12-23-2019 End: 12-23-2019 Periodic preventive med est patient 65yrs& older Jailene Michaels [facility] Start: 12-23-2019 Review Jailene Michaels Compreh ensive Internal Medicine Start: 12-08-2019 End: 12-08-2019 Office outpatient visit 25 minutes Jailene Michaels [facility] Start: 11-18-2019 End: 11-18-2019 Office outpatient visit 5 minutes Jailene Vasques [facility] Start: 10-11-2019 End: 10-11-2019 Office outpatient visit 15 minutes Jailene Vasques [facility] Start: 07-21-2019 End: 07-21-2019 Office outpatient visit 10 minutes Jailene Vasques [facility] Start: 06-09-2019 End: 06-09-2019 Office outpatient visit 40 minutes Jailene Vasques [facility] Start: 05-31-2019 End: 05-31-2019 Phone Encounter Jailene Vasques [facility] Start: 03-26-2019 End: 03-26-2019 Office outpatient visit 15 minutes Jailene Vasques [facility] Start: 01-22-2019 End: 01-22-2019 Office outpatient visit 15 minutes Jailene Vasques [facility] Start: 08-24-2018 End: 08-24-2018 Office outpatient visit 15 minutes Jailene Vasques [facility] Start: 07-13-2018 End: 07-13-2018 Office outpatient visit 15 minutes Jailene Michaels [facility] Start: 07-03-2018 End: 07-03-2018 Phone Encounter Jailene Vasques [facility] Start: 05-21-2018 End: 05-21-2018 Office outpatient visit 10 minutes Jailene Vasques [facility] Start: 05-01-2018 End: 05-01-2018 Office outpatient visit 15 minutes Jailene Vasques [facility] Start: 04-02-2018 End: 04-02-2018 Patient encounter procedure Jailene Michaels DO Work Phone: [facility] Start: 04-02-2018 End: 04-02-2018 Periodic preventive med est patient 65yrs& older Jailene Vasques [facility] Start: 03-20-2018 End: 03-20-2018 Office outpatient visit 15 minutes Jailene Vasques [facility] Start: 02-23-2018 End: 02-23-2018 Office outpatient new 30 minutes Jailene Vasques Internal Medicine Patient encounter procedure Krista Botello [facility]; [facility] Work Phone: Patient encounter procedure Krista [facility]; [facility]: [facility] Work Phone: Patient encounter procedure Krista Ayan [facility]; [facility] Work Phone: Patient encounter procedure Emily Zuniga [facility]; [facility] Work Phone: Patient encounter procedure Emily Zuniga [facility]; [facility] Work Phone: Patient encounter procedure Ashley Frank [place] [facility]; [facility] Work Phone: Patient encounter procedure Patricia Beal [facility]; [facility] Work Phone: Patient encounter procedure Jailene Michaels DO Work Phone: [facility]; [facility] Work Phone: Patient encounter procedure Andra Buttford [facility]; [facility] Work Phone: [facility] Work Phone: Patient encounter procedure Estefania Pinondave [facility]; [facility] Work Phone: Patient encounter procedure Patricia Beal [facility] Comprehensive Internal Medicine; Comprehensive Internal Medicine Work Phone: Procedures Date Procedure Procedure Detail Performing Clinician Start: 07-11-2022 End: 07-11-2022 PT D/C Summary (1) Procedure Note: See Note; NOTES: [facility] Therapy [address] [place] [address] / REHABILITATION SERVICES DISCHARGE SUMMARY MR#: [id number] Acct: [id number] Name: TIFFANY NUÑEZ Rep #: [id number] : 1945 77 From: Bryant Pro DPT, OCS, CSCS Referring DrSydni: Jailene Michaels DO Status: REG R CR Insurance: MEDICARE PART A B ANTHEM It has been my pleasure to treat TIFFANY NUÑEZ referred by Jailene Michaels DO, with the diagnosis of unstable balance, [...] please feel free to call me at [phone]. Thank you for the referral of this patient. Sincerely, Bryant Pro DPT, OCS, CSCS Balance/Gait/Functional tests - Balance/Special Test Scores Functional Gait Assessment Score: 28 % Disability: 6.6700 CATSIB Score (Max score 120 seconds): 96 Lower Extremity Functional Score: 72 TUG Test Time Seconds: 8 Tug Test: <10 sec.=free mobile 30 Second Chair Rise Test Seconds: 16 <Electronically signed by Bryant Pro DPT, KALLI, CSCS> 07/11/22 1245 CC: Dr. Jailene Michaels DO; Jailene Michaels DO EBG Signed Jailene Michaels DO Work Phone: Start: 06-27-2022 End: 06-27-2022 Re-Evaluation - PT (1) Procedure Note: See Note; NOTES: [facility] [address] [place] [address]. [address] [place] [address] / REEVALUATION / MEDICARE RECERTIFICATION PHYSICAL THERAPY MR#: [id number] Acct: [id number] Name: TIFFANY NUÑEZ Rep #: [id number] : 1945 77 From: Bryant Pro DPT, OCS, CSCS Referring : Jailene Xenia DO Status:REG RCR Insurance: MEDICARE PART A B SIGIFREDO Sorensonhleen Xenia, DO, It has been my pleasure to treat TIFFANY NUÑEZ over the last 6 visits for unstable balance, abnormal gait. Please see the progress note below for an update on the physical therapy plan of care! Subjective: Feels like it is helping, has a ways to go. Feeling a little more confident. Muscles in legs feeling stronger. Doing balance stuff at home. Strengthening going well. Will join [employer] and continue on. Feels like needs more [...] do not hesitate to contact me at [phone] by phone or if you have questions or concerns regarding this new plan of care! Sincerely, Bryant Pro DPT, OCS, CSCS <Electronically signed by KALLI Lopez DPT, CSCS> 06/27/22 1321 CC: Dr. Jailene Michaels DO; Jailene Michaels DO EBG Signed For Medicare only, by signing this I certify the plan of care. _ Physicians Signature Date Jailene Michaels DO Work Phone: Start: 06-11-2022 End: 06-11-2022 PT Communication Procedure Note: See Note; NOTES: [facility] Therapy [address] [place] [address] Fax REHABILITATION SERVICES PROGRESS NOTE MR#: [id number] Acct: [id number] Name: TIFFANY NUÑEZ Rep #: [id number] : 1945 77 From: Bryant Pro DPT, KALLI, CSCS Referring Dr.: Jailene Michaels DO Status:REG RCR Insurance: MEDICARE PART A B ANTHEM PT Communication Note 06/11/[address] Jailene Michaels, , Thank you for the referral of Tiffany to [facility] for balance assessment. i have enclosed a [...] that she will be able to continue care home as a member here at [facility]. Please do not hesitate to contact me if there are questions regarding her plan of care. Sincerely, Bryant Pro DPT, KALLI, CSCS Contact Information 06/11/22 1240 <Electronically signed by Bryant Pro DPT, OCS, CSC S> Date Bryant Pro DPT, OCS, CSCS Cosigner Signature (if applicable): Date CC: Dr. Jailene Michaels DO; Jailene Michaels DO Signed For Medicare only, by signing this I certify the plan of care. _ Physicians Signature Date Jailene Michaels DO Work Phone: Start: 06-06-2022 End: 06-06-2022 Brain without Contrast Procedure Note: See Note; NOTES: [facility] Imaging Services [address] [place] [address] Brain without Contrast MR#: [id number] Acct: [id number] Name: TIFFANY NUÑEZ Rep #: [id number] : 1945 F 77 From: Boom Teresa PCP: Dr. Jailene Michaels DO Status: REG CLI Study: Brain without Contrast Date of Exam: 06/06/22 Exam# [id number] Ordering Dr: Jailene Michaels DO EXAM: MR HEAD WITHOUT INTRAVENOUS CONTRAST CLINICAL INDICATION: ATAXIA;UNSTABLE BALANCE approx 2 yrs TECHNIQUE: Multiplanar and multisequence MR images of the brain were obtained without intravenous contrast. This report was created using AdorStyle report Swarm Mobile technology. COMPARISON: None. FINDINGS: BRAIN AND EXTRA-AXIAL [...] Signed: Boom Machuca MD at 14:36 EDT Reading Location ID and State: [facility] / [place] , Service support , CC: Dr. Jailene Michaels DO [employer] Safety Engineer: Signed Jailene Michaels DO Work Phone: Start: 06-06-2022 MRI of brain without contrast Dr. Jailene Michaels Work Phone: Start: 06-04-2022 End: 06-04-2022 Inital Evaluation (1) - PT Procedure Note: See Note; NOTES: [facility] [address] [place] [address] [address] [place] [address] / REHABILITATION SERVICES INITIAL EVALUATION MR#: [id number] Acct: [id number] Name: TIFFANY NUÑEZ Rep #: [id number] : 1945 77 From: Bryant Pro DPT, KALLI, CSCS Referring : Jailene Michaels DO Status: REG R CR Insurance: MEDICARE PART A B ANTH Patient's Visit Information TIFFANY NUÑEZ is a 77 year old F referred to Physical Therapy by Jailene Michaels DO with a diagnosis of unstable balance, abnormal gait. Date of Evaluation: 06/04/22 Physical Therapist: Bryant Pro DPT, KALLI, CSCS - Visit Plan Frequency: 2x /Week [...] of the day. Carrying two items in [employer] Yesterday and felt unsteady. Has been gradually [...] to be FAXED BACK to us at [phone] for Medicare purposes. For Medicare only, by signing this I certify the plan of care. Please let me know if there are questions or concerns regarding this plan of care. Physician Signature: Date: <Electronically signed by Bryant Pro DPT, OCS, CSCS> 06/04/22 1241 CC: Dr. Jailene Michaels DO; Jailene Michaels DO EBG Signed Jailene Michaels DO Work Phone: Start: 05-30-[address] Jailene boyd Work Phone: Start: 05-30-2022 End: 05-30-2022 SCRN MAMM (CAD)W/GERRY BILAT Procedure Note: See Note; NOTES: [facility] Imaging Services [address] [place] [address] SCRN MAMM (CAD)W/GERRY BILAT MR#: [id number] Acct: [id number] Name: TIFFANY NUÑEZ Rep #: [id number] : 1945 F 77 From: Ross mills MD PCP: Dr. Jailene Michaels DO Status: REG CL Study: SCRN MAMM (CAD)W/GERRY BILAT Date of Exam: 12/14 Exam# [id number] Ordering Dr: Jailene Michaels DO MAMMOGRAPHY - BILATERAL SCREENING REASON FOR [...] delay biopsy of a clinically suspicious abnormality. [id number] Electronically Signed: Ross Marie MD at 11:06 EST Reading Location ID and State: [facility] , Service support , CC: Dr. Jailene Michaels DO [employer] Systems Safety Engineer: Signed Jailene Michaels DO Work Phone: Start: 05-17-2022 End: 05-17-2022 Foot min 3 Views Procedure Note: See Note; NOTES: [facility] [address] [address] Foot min 3 Views MR#: [id number] Acct: [id number] Name: TIFFANY NUÑEZ Rep #: [id number] : 1945 F 77 From: Nakul Devine MD PCP: Dr. Jailene Michaels DO Status: DEP AMB Study: Foot min 3 Views Date of Exam: 05/17/22 Exam# [id number] Ordering Dr: Jailene Michaels DO INDICATION: PAIN EXAMINATION/TECHNIQUE: X-RAY - LEFT [...] Signed: Nakul Devine MD at 20:37 EST Reading Location ID and State: [facility] / [place] Tel , Service support , CC: Dr. Jailene Michaels DO [employer] Safety Engineer: Signed Jailene Michaels DO Work Phone: Start: 05-17-2022 X-ray of both feet Dr. Jailene Michaels Work Phone: Start: 11-07-2021 End: 11-07-2021 Virtual Office Visit Procedure Note: See Note; NOTES: [address] [address] OFFICE VISIT Date of Service: 11/07/21 MR#: [id number] Acct: [id number] Patient: TIFFANY NUÑEZ Rep #: [id number] : 1945 Provider: JIMY Cochran Age/Sex: 76/F Location[place] [facility] Status: Signed Intake Vital Signs 05/22/21 10:54 11/07/21 11:58 Height 5 ft 2.25 in 5 ft 2.25 in Intake Visit Reasons: Monoclonal Antibody Referral Chief Complaint: Neck and back pain Allergies Penicillins Allergy (Verified 11/07/21 12:01) Unknown [facility] Medical History Back pain HTN (hypertension) Limb [...] visit was conducted during COVID-19 pandemic. TIFFANY NUÑEZ, is a 76 F who participates in [...] due to interaction with other medications. 11/07/21 1357 <Electronically signed by Gloria HINTONC> Date Gloria Cochran NP HIDE AND SKIN COLERER-C Cosigner Signature: Date (if applicable) CC: Jailene Michaels DO Work Phone: Start: 05-22-2021 End: 05-23-2021 Dexa Bone Density Study Comments: See Note; NOTES: [facility] Imaging Services [address] [place] [address] Dexa Bone Density Study MR#: [id number] Acct: [id number] Name: TIFFANY NUÑEZ Rep #: [id number] : 1945 F 76 From: Ross mills MD PCP: Dr. Jailene Michaels DO Status: [facility] Study: Dexa Bone Density Study Date of Exam: 05/22/21 Exam# [id number] Ordering Dr: Jailene Michaels DO STUDY: DUAL ENERGY X-RAY ABSORPTIOMETRY / [...] at 12:19 EST , CC: Dr. Jailene Michaels DO [employer] Safety Engineer: Signed Jailene Michaels DO Work Phone: Start: 05-21-2021 End: 05-21-2021 SCRN MAMM (CAD)W/GERRY BILAT Comments: See Note; NOTES: [facility] Imaging Services [address] [place] [address] SCRN MAMM (CAD)W/GERRY BILAT MR#: [id number] Acct: [id number] Name: TIFFANY NUÑEZ Rep #: [id number] : 1945 F 76 From: Ross mills MD PCP: Dr. Jailene Michaels DO Status: REG CLI Study: SCRN MAMM (CAD)W/GERRY BILAT Date of Exam: 04/25 11/12 Exam# [id number] Ordering Dr: Jailene Michaels DO MAMMOGRAPHY - BILATERAL SCREENING REASON FOR [...] change since the prior study. BI/SCRN MAMM (CAD)W/EGRRY BILAT IMPRESSION: Stable bilateral screening mammogram. Yearly follow-up mammogram recommended. (A) ASSESSMENT CATEGORY: BIRADS Category 2: Benign. A letter regarding these results will be sent to the patient by the facility within 30 days. Approximately 10% of breast cancers are not detected by mammography. A normal mammogram should not delay biopsy of a clinically suspicious abnormality. [id number] Electronically Signed: Ross Marie MD at 14:51 EST , CC: Dr. Jailene Michaels DO [employer] Systems Safety Engineer: Signed Jailene Michaels DO Work Phone: Start: 03-29-2021 End: 04-06-2021 MRA Head ONLY without Contrast Comments: See Note; NOTES: [facility] Imaging Services [address] [place] [address] MRA Head ONLY without Contrast MR#: [id number] Acct: [id number] Name: TIFFANY NUÑEZ Rep #: [id number] : 1945 F 76 From: Héctor De Leon MD PCP: Dr. Jailene Michaels DO Status: REG CLI Study: MRA Head ONLY without Contrast Date of Exam: 0 03/29/21 Exam# [id number] Ordering Dr: Chandu Garcia MD History: H/A EXAMINATION: MRA Head W/O Contrast TECHNIQUE: Routine [place] of [place]/brain 3D time of flight MR angiogram protocol was performed without gadolinium. 3D reconstructions were reviewed. IV Contrast dosage and agent: COMPARISON: None FINDINGS: --Anterior circulation: ICAs: No significant stenosis at the intracranial/visualized segments. ACAs: No significant stenosis at the visualized segments. ACOM: Present. MCAs: No significant stenosis at the visualized segments. --Posterior circulation: PCOMs: Left P-comm is present. security developer: No significant stenosis at the visualized segments. [...] , Service support , CC: Dr. Jailene Michaels DO; Dr. Yair Garcia MD [employer] Safety Engineer: Signed Jailene Michaels DO Work Phone: Start: 01-10-2021 End: 01-17-2021 PT D/C Summary (1) Comments: See Note; NOTES: [facility] [address] [place] [address] / REHABILITATION SERVICES DISCHARGE SUMMARY MR#: [id number] Acct: [id number] Name: TIFFANY NUÑEZ Rep #: [id number] : 1945 75 From: Bryant Pro DPT, OCS, CSCS Referring Dr.: Dr. Jailene Michaels DO Status: REG RCR Insurance: MEDICARE PART A B ANTH It has been my pleasure to treat TIFFANY NUÑEZ referred by Dr. Jailene Michaels DO, with the diagnosis of BPV for [...] overall much improved and appropriate to marisol Mendoza ex prescribed adn f/u with doctor in [...] please feel free to call me at [phone]. Thank you for the referral of this patient. Sincerely, Bryant Pro DPT, KALLI, MYLES Balance/Gait/Functional tests - Balance/Special Test Scores Functional Gait Assessment Score: 26 % Disability: 13.3400 Dizziness Score: 12 <Electronically signed by KALLI Lopez DPT, CSCS> 01/10/21 1148 CC: Dr. Jailene Michaels DO EBG Signed Jailene Michaels DO Work Phone: Start: 12-20-2020 End: 12-20-2020 Inital Evaluation (1) - PT Comments: See Note; NOTES: [facility] [place] [address] / REHABILITATION SERVICES INITIAL EVALUATION MR#: [id number] Acct: [id number] Name: TIFFANY NUÑEZ Rep #: [id number] : 1945 75 From: Bryant Pro DPT, KALLI, MYLES Referring Dr.: Dr. Jailene Michaels DO Status: REG RCR Insurance: MEDICARE PART A B [facility] Patient's Visit Information TIFFANY NUÑEZ is a 75 year old F referred to Physical Therapy by Dr. Jailene Michaels DO with a diagnosis of BPV. Date of Evaluation: 12/20/20 Physical Therapist: Bryant Pro DPT, KALLI, CSCS - Visit Plan Frequency: 1-2x /Week [...] Goal Time Frame: 2-4 Weeks Goal 2:: Melanie feels 75% better and I in managment [...] to be FAXED BACK to us at [phone] for Medicare purposes. For Medicare only, by signing this I certify the plan of care. Please let me know if there are questions or concerns regarding this plan of care. Physician Signature: Date: <Electronically signed by Bryant Pro DPT, OCS, CSCS> 12/20/20 1128 CC: Dr. Jailene Michaels, DO EBG Signed Jailene Michaels DO Work Phone: Start: 09-12-2020 End: 09-13-2020 12 Lead EKG Comments: See Note; NOTES: [facility] Cardiovascular Services [address] [place] [address] 12 Lead EKG 09/12/20 1049 MR#: [id number] Acct: [id number] Name: TIFFANY NUÑEZ Rep #: [id number] : 1945 75 From: Sebastien Chandra MD Attending Dr: Dr. Yair Garcia MD Sta tus: REG CLI Ordering Dr: Yair Garcia MD Date: 09/12 Location: [facility] Sex: F C Admitted: Test Reason : HTN Blood Pressure : / mmHG Vent. Rate : 056 BPM Atrial Rate : 056 BPM P-R Int : 168 ms QRS Dur : 078 ms QT Int : 414 ms P-R-T Axes : 031 003 024 degrees QTc Int : 399 ms Sinus bradycardia Otherwise normal ECG Confirmed by TITI PEDRAZA, SEBASTIEN ([id number]), editor house organ MATILDE SAWYER ([id number]) on 09/13/2020 9:32:11 AM Referred By: Yair Garcia Confirmed By:SEBASTIEN CHANDRA MD 09/13/20 0932 Date Sebastien Chandra MD CC: Dr. Jailene Michaels DO; Dr. Yair Garcia MD Signed Jailene Michaels DO Work Phone: Start: 06-23-2020 End: 06-23-2020 Renal Artery Duplex Ultrasound Comments: See Note; NOTES: [facility] Cardiovascular Services [address] [place] [address] Renal Artery Duplex Ultrasound 06/23/20 0906 MR#: [id number] Acct: [id number] Name: TIFFANY NUÑEZ Rep #: [id number] : 1945 75 From: Josias Bailey MD Attending Dr: Dr. Jailene Michaels DO Status: R EG CLI Ordering Dr: Jailene Michaels DO Date: 06/23/20 Location: [facility] Sex: F C Admitted: Reason For Study: [...] at 10.46 cm _ Ordering Physician: Jailene Michaels Referring Physician: Jailene Michaels Performed By: Neda Figueredo, ALEJA, RVT 06/23/20 1354 Date Josias Bailey MD CC: Dr. Jaileen Michaels, DO Date Dictated: 06/23/20905 Date Transcribed: 06/23/20 1354 [employer]ic Systems Safety Engineer: Signed Jailene Michaels Work Phone: Start: 03-27-2020 End: 03-27-2020 SCREEN MAMM (CAD) W/GERRY BILAT Comments: See Note; NOTES: [facility] Imaging Services [address] [place] [address] SCREEN MAMM (CAD) W/GERRY BILAT MR#: [id number] Acct: [id number] Name: TIFFANY NUÑEZ Rep #: [id number] : 1945 F 75 From: Ross mills MD PCP: Dr. Jailene Michaels DO Status: REG CLI Study: SCREEN MAMM (CAD) W/GERRY BILAT Date of Exam: 0 03/27/20 Exam# [id number] Ordering Dr: Jailene Michaels DO MAMMOGRAPHY - BILATERAL SCREENING REASON FOR [...] delay biopsy of a clinically suspicious abnormality. [id number] Electronically Signed: Ross Frank, at 14:31 EST , Service support , CC: Dr. Jailene Michaels DO [employer] Systems Safety Engineer: Signed Jailene Michaels Work Phone: Start: 08-06-2019 End: 08-09-2019 PT/HP.PTDCSUM Comments: See Note; NOTES: [facility] [address] [place] [address] [address] [place] [address] / REHABILITATION SERVICES DISCHARGE SUMMARY MR#: [id number] Acct: [id number] Name: TIFFANY NUÑEZ Rep #: [id number] : 1945 74 From: Syed Alston PT, Cert. T, [facility] Referring DrSydni: Dr. Jailene Michaels DO Status: REG RCR Insurance: MEDICARE PART A B ANTHEM It has been my pleasure to treat TIFFANY NUÑEZ referred by Dr. Jailene Michaels DO, with the diagnosis of LUMBAR BACK [...] please feel free to call me at [phone]. Thank you for the referral of this patient. Sincerely, Syed Alston PT, Cert MDT, OCS <Electronically signed by Cert. AJ Beatty PT, OCS> 08/09/19 1448 CC: Dr. Jailene Michaels DO TEODORA Signed Jailene Michaels Start: 07-06-2019 End: 07-06-2019 Re-Evaluation - PT (1) Comments: See Note; NOTES: [facility] [address] [place] [address] [address] [place] [address] / REEVALUATION / MEDICARE RECERTIFICATION PHYSICAL THERAPY MR#: [id number] Acct: [id number] Name: TIFFANY NUÑEZ Rep #: [id number] : 1945 74 From: Syed Alston PT Cert. T, OCS Referring DrSydni: Jailene Michaels DO Status: REG RCR Insurance: MEDICARE PART A B SIGIFREDO Michaels DO, It has been my pleasure to treat TIFFANY NUÑEZ over the last 10 visits for LUMBAR [...] do not hesitate to contact me at [phone] by phone or if you have questions or concerns regarding this new plan of care! Sincerely, Syed Alston PT, Yaima ROCHA, OCS <Electronically signed by Cert. AJ Beatty PT, OCS> 07/06/19 1426 CC: Jailene Michaels DO JLA Signed For Medicare only, by signing this I certify the plan of care. _ Physicians Signature Date Jailene Michaels Start: 06-09-2019 End: 06-09-2019 Inital Evaluation (1) - PT Comments: See Note; NOTES: [facility] [address] [place] [address] / REHABILITATION SERVICES INITIAL EVALUATION MR#: [id number] Acct: [id number] Name: TIFFANY NUÑEZ Rep #: [id number] : 1945 74 From: Cert. AJ Beatty PT, OCS Referring Dr.: Jailene Michaels DO Status: REG RCR Insurance: MEDICARE PART A B ANTH Patient's Visit Information TIFFANY NUÑEZ is a 74 year old F referred to Physical Therapy by Jailene Michaels DO with a diagnosis of LUMBAR BACK PAIN,DDD. Date of Evaluation: 06/09/19 Physical Therapist: Syed Alston PT, Yaima PEDRAZAT, OCS - Visit Plan Frequency: 2x /Week Duration: 4 Weeks Plan: PT INTERVENTIONS DLS ABD/BACK,POSTURAL EX'S ,MODALTIES - Subjective Subjective: This 74 y/o female presents to physical therapy with lumbar back pain. Patient developed right low back pain several months. Seen Dr Xenia recommended PT. Patient had PT in past [...] Response: No effect Lumbar Standing: Right Side [place] - Symptoms During Testing: No effect Lumbar Standing: Right Side [place] - Symptoms After Testing: No effect Lumbar Standing: Left Side [place] - Mechanical Response: No effect Lumbar Standing: Left Side [place] - Symptoms During Testing: No effect Lumbar Standing: Left Side [place] - Symptoms After Testing: No effect - [...] to be FAXED BACK to us at [phone] for Medicare purposes. For Medicare only, by signing this I certify the plan of care. Please let me know if there are questions or concerns regarding this plan of care. Physician Signature: Date: <Electronically signed by Syed Alston PT, Cert. T, OCS> 06/09/19 1648 CC: Jailene Michaels DO JLA Signed Jailene Michaels Start: 01-05-2019 End: 01-07-2019 Dexa Bone Density Study Comments: See Note; NOTES: [facility] Imaging Services [address] [place] [address] Dexa Bone Density Study MR#: [id number] Acct: [id number] Name: TIFFANY NUÑEZ Rep #: [id number] : 1945 F 73 From: Ross Marie MD PCP: Jailene Michaels DO Status: REG CLI Study: Dexa Bone Density Study Date of Exam: 01/05/19 Exam# [id number] Ordering Dr: Jailene Michaels DO STUDY: DUAL ENERGY X-RAY ABSORPTIOMETRY / [...] EDT , Service support , CC: Jailene Michaels DO [employer] Systems Safety Engineer: Signed Jailene Michaels Work Phone: Start: 01-05-2019 End: 01-19-2019 SCREEN MAMM (CAD) W/GERRY BILAT Comments: See Note; NOTES: [facility] Imaging Services [address] [place] [address] SCREEN MAMM (CAD) W/GERRY BILAT MR#: [id number] Acct: [id number] Name: TIFFANY NUÑEZ Rep #: [id number] : 1945 F 73 From: Ross Marie MD PCP: Jailene Michaels DO Status: REG CLI Study: SCREEN MAMM (CAD) W/GERRY BILAT Date of Exam: 01/05/19 Exam# [id number] Ordering Dr: Jailene Michaels DO ADDENDUM by Ross Marie MD on 01/19/19 at 1551 ADDENDUM This is an addendum report. Prior outside examination dated December 18, 2017 is made available for comparison. There has been no change. Electronically Signed: Ross Marie, at 15:51 EDT , Service support , 01/19/19 1551 Date cc: Jailene Michaels DO * Signed ADDENDUM by Ross Marie MD on 01/19/19 at 1551 BI/SCREEN MAMM (CAD) W/GERRY BILAT 01/19/19 1558 Date cc: Jailene Michaels DO * Signed MAMMOGRAPHY - BILATERAL SCREENING [...] delay biopsy of a clinically suspicious abnormality. [id number] Electronically Signed: Ross Marie, at 8:04 EDT , Service support , CC: Jailene Michaels DO [employer] Safety Engineer: Signed Jialene Michaels Work Phone: Start: 05-11-2018 End: 05-12-2018 Upper Ext Joint Only(Routine) Comments: See Note; NOTES: [facility] Imaging Services [address] [place] [address] Upper Ext Joint Only(Routine) MR#: [id number] Acct: [id number] Name: TIFFANY NUÑEZ Rep #: [id number] : 1945 F 73 From: Clement Roger MD PCP: Jailene Michaels DO Status: REG CLI Study: Upper Ext Joint Only(Routine) Date of Exam: 05/11/18 Exam# [id number] Ordering Dr: Jailene Michaels DO STUDY: MRI RIGHT SHOULDER REASON FOR [...] Tel , Service support , CC: Jailene Michaels DO [employer] Systems Safety Engineer: Signed Jailene Michaels Work Phone: Start: 05-01-2018 End: 05-02-2018 Shoulder min 2 Views Comments: See Note; NOTES: [facility] Imaging Services [address] [place] [address] Shoulder min 2 Views MR#: [id number] Acct: [id number] Name: TIFFANY NUÑEZ Rep #: [id number] : 1945 F 73 From: Justin Bauer DO PCP: Jailene Michaels DO Status: REG CLI Study: Shoulder min 2 Views Date of Exam: 05/01/18 Exam# [id number] Ordering Dr: Jailene Michaels DO STUDY: X-RAY - RIGHT SHOULDER REASON FOR EXAM: Female, 73 years old. Pain TECHNIQUE: 4 view(s) of the shoulder. COMPARISON: None. FINDINGS: Normal glenohumeral articulation. Normal acromioclavicular joint. Normal acromion. Normal humeral head and visualized proximal humerus. The soft tissue structures are unremarkable. Normal visualized pulmonary apex. RAD/Shoulder min 2 Views IMPRESSION: Normal x-ray examination of the shoulder. Electronically Signed: Justin Bauer DO at 9:04 EST Tel [phone], Service support , CC: Jailene Michaels DO [employer] Safety Engineer: Signed Jailene Michaels Work Phone: Start: 03-31-2018 End: 03-31-2018 Re-Evaluation - PT (1) Comments: See Note; NOTES: [facility] Therapy [address] [place] [address] / REEVALUATION / MEDICARE RECERTIFICATION PHYSICAL THERAPY MR#: [id number] Acct: [id number] Name: TIFFANY NUÑEZ Rep #: [id number] : 1945 73 From: Jani Malik DPT Referring DrSydni: Jailene Michaels DO Status: REG RCR Insurance: MEDICARE PART A B ANTHEM Jailene Michaels, DO, It has been my pleasure to treat TIFFANY NUÑEZ over the last 10 visits for R [...] do not hesitate to contact me at [phone] by phone or if you have questions or concerns regarding this new plan of care! Sincerely, Jani Malik, DPT <Electronically signed by Jani Malik DPT> 03/31/18 1354 CC: Jailene Michaels DO CLS Signed For Medicare only, by signing this I certify the plan of care. _ Physicians Signature Date Jailene Michaels Start: 03-11-2018 End: 03-12-2018 L/S Spine Min 4 Views Comments: See Note; NOTES: [facility] Imaging Services [address] [place] [address] L/S Spine Min 4 Views MR#: [id number] Acct: [id number] Name: TIFFANY NUÑEZ Rep #: [id number] : 1945 F 72 From: Osmany Vuong DO PCP: Jailene Michaels DO Status: REG CLI Study: L/S Spine Min 4 Views Date of Exam: 03/11/18 Exam# [id number] Ordering Dr: Jailene Michaels DO STUDY: X-RAY - LUMBAR SPINE REASON [...] spine, as detailed above. Electronically Signed: Osmany VuongDO at 11:29 EST Tel , Service support , CC: Jailene Michaels DO [employer] Safety Engineer: Signed Jailene Michaels Work Phone: Start: 03-03-2018 End: 03-03-2018 Inital Evaluation (1) - PT Comments: See Note; NOTES: [facility] Physical [facility] [place] [address] Fax REHABILITATION SERVICES INITIAL EVALUATION MR#: [id number] Acct: [id number] Name: TIFFANY NUÑEZ Rep #: [id number] : 1945 72 From: Jani Malik DPT Referring Dr.: Jailene Michaels DO Status: REG RCR Insurance: MEDICARE PART A B ANTH Patient's Visit Information TIFFANYPernell NUÑEZ is a 72 year old F referred to Physical Therapy by Jailene Michaels with a diagnosis of R biceps pain, [...] moving boxes as she moved back to [place] from [place]. Pt. reports having pain that extends into [...] Response: No effect Lumbar Standing: Right Side [place] - Symptoms During Testing: Increases Lumbar Standing: Right Side [place] - Symptoms After Testing: No worse Lumbar Standing: Left Side [place] - Mechanical Response: No effect Lumbar Standing: Left Side [place] - Symptoms During Testing: Increases Lumbar Standing: Left Side [place] - Symptoms After Testing: No worse R [...] to be FAXED BACK to us at [phone] for Medicare purposes. For Medicare only, by signing this I certify the plan of care. Please let me know if there are questions or concerns regarding this plan of care. Physician Signature: Date: <Electronically signed by Jani CHURCHT> 03/03/18 1236 CC: Jailene Michaels DO CLS Signed Jailene Michaels B/L cataract sx Yolanda L Long B/L cataract sx Emily Gravi us B/L cataract sx Emily Gravi us B/L cataract sx Dilan Strong B/L cataract sx Emily Gravi us B/L cataract sx Lorna noel B/L cataract sx Dilan Strong B/L cataract sx Krista Botello B/L cataract sx Emily Gravi us B/L cataract sx Emily Gravi us B/L cataract sx Emily Gravi us B/L cataract sx Yolanda L Long B/L cataract sx Krista Cross B/L cataract sx Krista Cross B/L cataract sx Krista Cross SENIOR PRINCIPAL SOFTWARE ENGINEER B/L cataract sx Krista Cross SENIOR PRINCIPAL SOFTWARE ENGINEER B/L cataract sx Krista Cross SENIOR PRINCIPAL SOFTWARE ENGINEER B/L cataract sx Estefania Slarb SENIOR PRINCIPAL SOFTWARE ENGINEER B/L cataract sx Emily Gravi us STONEWORKING BELT SANDER B/L cataract sx Emily Gravi us STONEWORKING BELT SANDER B/L cataract sx Ashley Tres y MA B/L cataract sx Patricia Coffma n SENIOR PRINCIPAL SOFTWARE ENGINEER B/L cataract sx Kayela Radfo rd STONEWORKING BELT SANDER B/L cataract sx Kayela Radfo rd STONEWORKING BELT SANDER B/L cataract sx Kayela Radfo rd STONEWORKING BELT SANDER B/L cataract sx Estefania Slarb SENIOR PRINCIPAL SOFTWARE ENGINEER B/L cataract sx Patricia Coffma n SENIOR PRINCIPAL SOFTWARE ENGINEER D&C Yolanda L Long D&C Emily Gravius D&C Emily Gravius D&C Dilan Strong D&C Emily Gravius D&C Lorna Messenger D&C Dilan Strong D&C Krista Cross D&C Emily Gravius D&C Emily Gravius D&C Emily Gravius D&C Yolanda L Long D&C Krista Cross D&C Krista Cross D&C Krista Cross LP N D&C Krista Cross LP N D&C Krista Cross LP N D&C Estefania Slarb LP N D&C Emily Gravius STONEWORKING BELT SANDER D&C Emily Gravius STONEWORKING BELT SANDER D&C Ashley Marie M A D&C Patricia Emigdio L PN D&C Kayela [place] STONEWORKING BELT SANDER D&C Kayela Felix STONEWORKING BELT SANDER D&C Kayela [place] STONEWORKING BELT SANDER D&C Estefania Slarb LP N D&C Patricia Emigdio L PN H/O: surgery History of local excision of skin lesion Krista Cross SENIOR PRINCIPAL SOFTWARE ENGINEER H/O: surgery History of local excision of skin lesion Krista Cross SENIOR PRINCIPAL SOFTWARE ENGINEER H/O: surgery History of local excision of skin lesion Krista Cross SENIOR PRINCIPAL SOFTWARE ENGINEER H/O: surgery History of local excision of skin lesion Krista Cross SENIOR PRINCIPAL SOFTWARE ENGINEER H/O: surgery History of local excision of skin lesion Estefania Slarb SENIOR PRINCIPAL SOFTWARE ENGINEER H/O: surgery History of local excision of skin lesion Emily Gravius STONEWORKING BELT SANDER H/O: surgery History of local excision of skin lesion Emily Gravius STONEWORKING BELT SANDER H/O: surgery History of local excision of skin lesion Ashley Marie MA H/O: surgery History of local excision of skin lesion Patricia Emigdio SENIOR PRINCIPAL SOFTWARE ENGINEER H/O: surgery History of local excision of skin lesion Jailene Michaels DO Work Phone: H/O: surgery History of local excision of skin lesion Andra Washington STONEWORKING BELT SANDER H/O: surgery History of local excision of skin lesion Andra [place] STONEWORKING BELT SANDER End: 05-23-2022 H/O: surgery History of local excision of skin lesion Mary Arreola STONEWORKING BELT SANDER Ligation of fallopia n tube Yolanda L Long Ligation of fallopia n tube Emily Gravius Ligation of fallopia n tube Emily Gravius Ligation of fallopia n tube Dilan Strong Ligation of fallopia n tube Emily Gravius Ligation of fallopia n tube Lorna Messenger Ligation of fallopia n tube Dilan [...] Ligation of fallopia n tube Krista Cross SENIOR PRINCIPAL SOFTWARE ENGINEER Ligation of fallopia n tube Krista Cross SENIOR PRINCIPAL SOFTWARE ENGINEER Ligation of fallopia n tube Krista Cross SENIOR PRINCIPAL SOFTWARE ENGINEER Ligation of fallopia n tube Estefania Slarb SENIOR PRINCIPAL SOFTWARE ENGINEER Ligation of fallopia n tube Emily Gravius STONEWORKING BELT SANDER Ligation of fallopia n tube Emily Gravius STONEWORKING BELT SANDER Ligation of fallopia n tube Ashley Marie MA Ligation of fallopia n tube Patricia Emigdio SENIOR PRINCIPAL SOFTWARE ENGINEER Ligation of fallopia n tube Kayela Felix STONEWORKING BELT SANDER Ligation of fallopia n tube Kayela Felix STONEWORKING BELT SANDER Ligation of fallopia n tube Kayela Felix STONEWORKING BELT SANDER Ligation of fallopia n tube Estefania Slarb SENIOR PRINCIPAL SOFTWARE ENGINEER Ligation of fallopia n tube Patricia Emigdio SENIOR PRINCIPAL SOFTWARE ENGINEER Plan of Treatment Date Care Activity Detail Author Start: 12-04-2022 25 hydroxy includes fractions if performed CALCIFEDIOL (03608) [facility] Work Phone: Start: 12-04-2022 Assay of thyroid stimulating hormone tsh TSH (35168) [facility]; [facility] Work Phone: Start: 12-04-2022 Procedure Education Eprescribed prescriptions (G8553) [facility]; [facility] Work Phone: Start: 08-12-2022 Procedure Education Eprescribed prescriptions (G8553) [facility]; [facility] Work Phone: Start: 08-12-2022 Provider Instructions for Treatment [facility]; [facility] Work Phone: Start: 08-12-2022 25 hydroxy includes fractions if performed CALCIFIDIOL (40535) VIT D 25 [facility]; [facility] Work Phone: Start: 08-12-2022 Assay of thyroid stimulating hormone tsh TSH (75239) [facility]; [facility] Work Phone: Start: 08-12-2022 Urnls dip stick/tablet reagent auto microscopy URINALYSIS, W/ MICRO (62173) [facility]; [facility] Work Phone: Start: 08-12-2022 Urine albumin quantitative MICROALBUMIN: CREATININE RATIO (30453) AND (76997) [facility]; [facility] Work Phone: Start: 08-12-2022 Comprehensive metabolic panel METABOLIC PANEL, COMPREHENSIVE (19773) [facility]; [facility] Work Phone: Start: 08-12-2022 Lipid panel LIPID PANEL (32660) [facility]; [facility] Work Phone: Start: 08-12-2022 Blood count complete auto&auto difrntl wbc CBC W/AUTO DIFF WBC (08149) [facility]; [facility] Work [...] Phone: Start: 02-11-2022 Lipid panel LIPID PANEL (02355) [facility]; [facility] Work Phone: Start: 12-31-2021 25 hydroxy includes fractions if performed CALCIFEDIOL (51077) [facility]; [facility] Work Phone: Start: 12-31-2021 Blood count complete auto&auto difrntl wbc CBC, PLATELETS & AUT DIFF (04567) [facility]; [facility] Work Phone: Start: 12-31-2021 Comprehensive metabolic panel METABOLIC PANEL, COMPREHENSIVE (36402) [facility]; [facility] Work Phone: Start: 12-31-2021 Urinalysis microscopic only URINALYSIS MICROSCOPY (51131) [facility]; [facility] Work Phone: Start: 12-31-2021 Creatinine other source MICROALB;CREAT RATION, RAND UR (23505) [facility]; [facility] Work Phone: Start: 12-31-2021 Assay of thyroid stimulating hormone tsh TSH (THYROID STIMULATING HORMONE) (51213) [facility]; [facility] Work [...] metabolic panel calcium total Metabolic Panel, Basic (80885) [facility]; [facility] Work Phone: Comment on above: to do early june Start: 06-07-2020 Metanephrines METANEPHRINES - URINE (31166) [facility]; [facility] Work Phone: Start: 06-07-2020 Catecholamines total urine CATECHOLAMINES TOTAL, URINE (44395) [facility]; [facility] Work Phone: Start: 06-07-2020 Assay of vanillylmandelic acid urine URINE VMA (53568) [facility]; [facility] Work Phone: Start: 06-07-2020 Procedure Education Eprescribed prescriptions (G8553) [facility]; [facility] Work Phone: Start: 06-07-2020 Provider Instructions for Treatment [facility]; [facility] Work Phone: Start: 05-24-2020 Procedure Education Eprescribed prescriptions (G8553) [facility]; [facility] Work Phone: Start: 05-24-2020 Provider Instructions for Treatment [facility]; [facility] Work Phone: Start: 03-08-2020 Patient Education EFUDEX INSTRUCTIONS [facility]; [facility] Work Phone: Start: 03-08-2020 Procedure Education Eprescribed prescriptions (G8553) [facility]; [facility] Work Phone: Start: 03-08-2020 Provider Instructions for Treatment [facility]; [facility] Work Phone: Start: 03-08-2020 25 hydroxy includes fractions if performed CALCIFIDIOL (51266) VIT D 25 [facility]; [facility] Work Phone: Start: 03-08-2020 Assay of thyroid stimulating hormone tsh TSH (47022) [facility]; [facility] Work Phone: Start: 03-08-2020 TSH Qn TSH (10624) [facility]; [facility] Work Phone: Start: 03-08-2020 Urnls dip stick/tablet reagent auto microscopy URINALYSIS, W/ MICRO (16354) [facility]; [facility] Work Phone: Start: 03-08-2020 Urine albumin quantitative MICROALBUMIN: CREATININE RATIO (42855) AND (76071) [facility]; [facility] Work Phone: Start: 03-08-2020 Comprehensive metabolic panel METABOLIC PANEL, COMPREHENSIVE (12731) [facility]; [facility] Work Phone: Start: 03-08-2020 Lipid panel LIPID PANEL (16648) [facility]; [facility] Work Phone: Start: 03-08-2020 Blood count complete auto&auto difrntl wbc CBC W/AUTO DIFF WBC (74422) [facility]; [facility] Work Phone: Start: 12-23-2019 Procedure Education Eprescribed prescriptions (G8553) [facility] Work Phone: Start: 12-23-2019 Provider Instructions for Treatment [facility] Work Phone: Start: 12-08-2019 Procedure Education Eprescribed prescriptions (G8553) [facility] Work Phone: Start: 12-08-2019 Provider Instructions for Treatment Continue Current Prescription(s) [facility] Work Phone: Start: 10-11-2019 Procedure Education Eprescribed prescriptions (G8553) [facility] Work Phone: Start: 07-21-2019 Procedure Education Eprescribed prescriptions (G8553) [facility] Work Phone: Start: 07-21-2019 Provider Instructions for Treatment [facility] Work Phone: Start: 06-09-2019 Procedure Education Eprescribed prescriptions (G8553) [facility] Work Phone: Start: 06-09-2019 Provider Instructions for Treatment [facility] Work Phone: Start: 03-26-2019 Procedure Education Eprescribed prescriptions (G8553) [facility] Work Phone: Start: 03-26-2019 Provider Instructions for Treatment Follow up if no improvement or if symptoms worsen [facility] Work Phone: Start: 01-22-2019 Procedure Education Eprescribed prescriptions (G8553) [facility] Work Phone: Start: 01-22-2019 Provider Instructions for Treatment Reviewed Diagnostic Tests [facility] Work Phone: Start: 08-24-2018 Procedure Education Eprescribed prescriptions (G8553) [facility] Work Phone: Start: 07-13-2018 Procedure Education Eprescribed prescriptions (G8553) [facility] Work Phone: Start: 07-13-2018 Provider Instructions for Treatment Follow up if no improvement or if symptoms worsen [facility] Work Phone: Start: 05-21-2018 Procedure Education Eprescribed prescriptions (G8553) [facility] Work Phone: Start: 05-21-2018 Provider Instructions for Treatment Reviewed Diagnostic Tests [facility] Work Phone: Start: 05-01-2018 Procedure Education Eprescribed prescriptions (G8553) [facility] Work Phone: Start: 04-02-2018 Procedure Education Eprescribed prescriptions (G8553) [facility] Work Phone: Start: 04-02-2018 Provider Instructions for Treatment [facility] Work Phone: Start: 03-20-2018 Procedure Education Eprescribed prescriptions (G8553) [facility] Work Phone: Start: 03-20-2018 Provider Instructions for Treatment Continue Current Prescription(s) [facility] Work Phone: Start: 02-23-2018 Provider Instructions for Treatment Continue Current Prescription(s) [facility] Work Phone: Patient referral [facility] Work Phone: [facility] Work Phone: [facility] Work Phone: [facility] Work Phone: [facility] Work Phone: [facility] Work Phone: [facility] Work Phone: [facility] Work Phone: [facility] Work Phone: [facility] Work Phone[facility] Work Phone[facility] Work Phone: [facility] Work Phone: [facility]; [facility] Work Phone: [facility]; [facility] Work Phone: [facility]; [facility] Work Phone: [facility]; [facility] Work Phone: [facility]; [facility] Work Phone: [facility]; [facility] Work Phone: [facility] Work Phone: [facility] Work Phone: [facility] Work Phone: [facility] Work Phone: [facility] Work Phone: [facility] Work Phone: [facility]; [facility] Work Phone: Immunizations Immunization Date Immunization Notes Care Provider [facility] 08-06-2022 COVID-Moderna (50 MCG/0.5 ML) Jailene Xenia DO Work Phone: [facility]; [facility] Work Phone: 01-16-2021 COVID-Moderna (100 MCG/0.5 ML) Jailene Xenia DO Work Phone: [facility]; [facility] Work Phone: 05-11-2020 COVID-19 (Moderna) Jailene Xenia [facility]; [facility] Work Phone: 11-27-2019 influenza, seasonal, injectable Jailene Xenia [facility] Work Phone: 11-27-2019 zoster vaccine, live Jailene Xenia [facility] Work Phone: 10-23-2019 zoster vaccine, live Jailene Xenia [facility] Work Phone: 03-24-2017 influenza, seasonal, injectable Jailene Xenia [facility] Work Phone: 03-24-2017 zoster vaccine, live Jailene Michaels [facility] Work Phone: Payers Date Payer Category Payer Self-pay [id number] 2021 Medicare [id number] 2011 Medicare [id number] 2010 Unknown [id number] 1945 Unknown [id number] 2.16.84 [id number] Unknown Unknown BC OUT OF STATE [id number] Unknown [id number] 2.16.8 [id number] Unknown [id number] 2.16.8 [id number] Unknown [id number] 2.16.8 [id number] Unknown [id number] 2.16.8 [id number] Unknown [id number] 2.16.8 [id number] Unknown [id number] 2.16.8 [id number] Unknown [id number] 2.16.8 [id number] Unknown [id number] 2.16.8 [id number] Unknown [id number] 2.16.8 [id number] Unknown [id number] 2.16.8 [id number] Unknown [id number] 2.16.8 [id number] Unknown [id number] 2.16.8 [id number] Unknown [id number] 2.16.8 [id number] Unknown [id number] 2.16.8 [id number] Social History Date Type Detail Facility Alcohol Use [facility] Work Phone: Comment on above: qd Exercise History: Does not exercise. [facility] Work Phone: Living Situation: Lives alone. Comprehens [facility] Work Phone: Pets/Animals: Dog. [facility] Work Phone: Exercise History: Exercise History: [facility]pr [facility]; [facility] Work Phone: Living Situation: Living Situation: [facility]pr [facility]; [facility] Work Phone: Pets/Animals: Pets/Animals: [facility]; [facility] Work Phone: Start: 11-07-2021 End: 11-07-2021 Tobacco smoking status NHIS Unknown if ever smoked [facility] Start: 1945 Sex Assigned At Female [facility] Mental Status Date Assessment Result Facility 11-07-2021 Cognitive function Voice/Name;To uch/Shaking;L ight Pain;Deep Pain [facility] Work Phone: Clinical Notes 07-11-2022 to 01-20-2025 Note Date & Type Note Facility 01-20-2025 Note HNO ID: [id number] Author: HERMELINDO DAVIS, PhD Service: ? Author Type: Psychologist Type: Progress Notes Filed: 01/20/2025 11:01 Note Text: [facility] Behavior[facility] Department Progress Note Tiffany Nuñez 01/20/2025 [id number] PROVIDER: Hermelindo Davis, PhD CPT Code: Time: 50 minutes Setting: Patient seen in person Parties Present: Patient Treatment Modality/Interventions: Cognitive Behavioral Reassurance/Supportive Insight oriented Problem solving Processing of emotions Psychoeducation MENTAL STATUS: Mood: variable, anxious Affect: mood-congruent Thoughts/Associations:goal directed Suicidal/Homicidal Ideation: None expressed or evidenced Other Prominent Symptoms: Therapy Focus/Content of Session: Self-care, Stress management, Mood/affect regulation, and Self-esteem dog and she now has a puppy to train she has decided to wait until spring to decide about [place] Finances: not yet clarified money in and out 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 No current facility-administered medications for this visit. Psychiatric Medication Issues: No change from previous appointment DIAGNOSIS: Isabella I: Depression, recurrent Adjustment mixed self esteem Isabella II: deferred Isabella III: see med record Isabella IV: self esteem and situational depression Isabella V: 53-65 TREATMENT PROGRESS/ASSESSMENT: Progressing satisfactorily. TREATMENT PLAN/GOALS: Continue in therapy focusing on self-care, interpersonal relationships, stress management, affect management, anxiety management, and self-esteem. Next appointment: as scheduled Hermelindo Davis PhD [facility] 12-20-2024 Note HNO ID: [id number] Author: HERMELINDO DAVIS PhD Service: ? Author Type: Psychologist Type: Progress Notes Filed: 12/20/2024 12:02 Note Text: [facility]al Health Department Progress Note Tiffany Farah Joaquin 12/20/2024 [id number] PROVIDER: Hermelindo Davis PhD CPT Code: Time: 50 minutes Setting: Patient seen in person Parties Present: Patient Treatment Modality/Interventions: Cognitive Behavioral Reassurance/Supportive Insight oriented Problem solving Processing of emotions Psychoeducation MENTAL STATUS: Mood: variable, anxious, fearful Affect: mood-congruent Thoughts/Associations:goal directed Suicidal/Homicidal Ideation: None expressed or evidenced Other Prominent Symptoms: Therapy Focus/Content of Session: Self-care, Mood/affect regulation, and Self-esteem Her dog has bone cancer as did the other similar breed dog foreshortening their lives to more like 9 than 13 years we discussed how rumination beyond being helpful has caused her unnecessary suffering she also discussed regrets of the past at [facility] and [facility] where the support and cooperation and mentoring was poor and the politics and egos problematic MEDICATIONS: Per medical record: No current outpatient medications on file. No current facility-administered medications for this visit. Psychiatric Medication Issues: No change from previous appointment DIAGNOSIS: Isabella I: Depression, recurrent Adjustment mixed self esteem Isabella II: deferred Isabella III: see med record Isabella IV: self esteem and situational depression Isabella V: 53-65 TREATMENT PROGRESS/ASSESSMENT: Progressing satisfactorily. TREATMENT PLAN/GOALS: Continue in therapy focusing on self-care, assertiveness skills, stress management, affect management, anxiety management, and self-esteem. Next appointment: as scheduled Hermelindo Davis PhD [facility] 11-25-2024 Note HNO ID: [id number] Author: HERMELINDO DAVIS PhD Service: ? Author Type: Psychologist Type: Progress Notes Filed: 11/25/2024 17:27 Note Text: [facility]al Health Department Progress Note Tiffany Farah Joaquin 11/25/2024 [id number] PROVIDER: Hermelindo Davis PhD CPT Code: Time: 50 minutes Setting: Patient seen in person Parties Present: Patient Treatment Modality/Interventions: Cognitive Behavioral Reassurance/Supportive Insight oriented Problem solving Processing of emotions Psychoeducation MENTAL STATUS: Mood: variable Affect: mood-congruent Thoughts/Associations:goal directed Suicidal/Homicidal Ideation: None expressed or evidenced Other Prominent Symptoms: Therapy Focus/Content of Session: Self-care, Stress management, Mood/affect regulation, and Self-esteem Anxiety about whether to move to [place] or stay ISSUE: she has been reluctant to clarify her expenses and finances for fear of knowing she spends too much and has too little but that might not actually be the case PLAN: it doesnt change it and she needs to have data in front of her to make a thoughtful choice of what to do discussed how she might actually be ok discussed coping and BEING PRESENT vs lost in the past or future MEDICATIONS: Per medical record: No current outpatient medications on file. No current facility-administered medications for this visit. Psychiatric Medication Issues: DIAGNOSIS: Isabella I: Depression, recurrent Adjustment mixed self esteem Isabella II: deferred Isabella III: see med record Isabella IV: self esteem and situational depression Isabella V: 53-65 TREATMENT PROGRESS/ASSESSMENT: Progressing satisfactorily. TREATMENT PLAN/GOALS: Continue in therapy focusing on self-care, stress management, affect management, anxiety management, and self-esteem. Next appointment: as scheduled Hermelindo Davis PhD [facility] 11-04-2024 Note HNO ID: [id number] Author: HERMELINDO DAVIS, PhD Service: ? Author Type: Psychologist Type: Progress Notes Filed: 11/04/2024 16:06 Note Text: [facility] Health Department Progress Note Tiffany Farah Joaquin 11/04/2024 [id number] PROVIDER: Hermelindo Davis PhD CPT Code: Time: 50 minutes Setting: Patient seen in person Parties Present: Patient Treatment Modality/Interventions: Cognitive Behavioral Reassurance/Supportive Insight oriented Problem solving Processing of emotions Psychoeducation MENTAL STATUS: Mood: variable Affect: mood-congruent Thoughts/Associations:goal directed Suicidal/Homicidal Ideation: None expressed or evidenced Other Prominent Symptoms: Therapy Focus/Content of Session: Self-care, Stress management, Mood/affect regulation, and Self-esteem FEAR: seems to run the ship THEN she has a list of things she cant do and or wont work She is evaluating what is coming in and going out financially and it is unclear if she could move to [place] where frnd is She loves [place] but cant afford it and it has a good friend who would encourage doing things Hard to get out but doing some things even tonight NEXT: we will discuss what she CAN do MEDICATIONS: Per medical record: No current outpatient medications on file. No current facility-administered medications for this visit. Psychiatric Medication Issues: No change from previous appointment DIAGNOSIS: Isabella I: Depression, recurrent Adjustment mixed self esteem social phobia Isabella II: deferred Isabella III: see med record Isabella IV: self esteem and situational depression Isabella V: 53-65 TREATMENT PROGRESS/ASSESSMENT: Progressing satisfactorily. TREATMENT PLAN/GOALS: Continue in therapy focusing on self-care, affect management, and self-esteem. Next appointment: as scheduled Hermelindo Davis, PhD [facility] 10-14-2024 Note HNO ID: [id number] Author: HERMELINDO DAVIS, PhD Service: ? Author Type: Psychologist Type: Progress Notes Filed: 10/14/2024 16:06 Note Text: [facility] Health Department Progress Note Tiffany Farah Joaquin 10/14/2024 [id number] PROVIDER: Hermelindo Davis, PhD CPT Code: Time: 50 minutes Setting: Patient seen in person Parties Present: Patient Treatment Modality/Interventions: Cognitive Behavioral Reassurance/Supportive Insight oriented Problem solving Processing of emotions Communication skills training Values Clarification Psychoeducation MENTAL STATUS: Mood: variable, anxious Affect: mood-congruent Thoughts/Associations:goal directed Suicidal/Homicidal Ideation: None expressed or evidenced Other Prominent Symptoms: Therapy Focus/Content of Session: Self-care, Stress management, Mood/affect regulation, and Self-esteem Struggling w how to have some kind of clear notion she is doing the right thing to move to [place] near frnds she wants assurance PLAN: notice that the journey and the choosing are the life vs it 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 No current facility-administered medications for this visit. Psychiatric Medication Issues: see med record DIAGNOSIS: Isabella I: Depression, recurrent Adjustment mixed self esteem Isabella II: deferred Isabella III: see med record Isabella IV: self esteem and situational depression Isabella V: 53-65 TREATMENT PROGRESS/ASSESSMENT: Progressing satisfactorily. TREATMENT PLAN/GOALS: Continue in therapy focusing on self-care, interpersonal relationships, stress management, affect management, anxiety management, and self-esteem. Next appointment: as scheduled Hermelindo Davis PhD [facility] 09-16-2024 Note HNO ID: [id number] Author: HERMELINDO DAVIS, Service: ? Author Type: Psychologist Type: Progress Notes Filed: 09/16/2024 16:58 Note Text: [facility] Department Progress Note Tiffany Sofi Joaquin 09/16/2024 [id number] PROVIDER: Hermelindo Davis PhD CPT Code: Time: 50 minutes Setting: Patient seen in person Parties Present: Patient Treatment Modality/Interventions: Cognitive Behavioral Reassurance/Supportive Insight oriented Problem solving Processing of emotions Psychoeducation MENTAL STATUS: Mood: variable Affect: mood-congruent Thoughts/Associations:goal directed Suicidal/Homicidal Ideation: None expressed or evidenced Other Prominent Symptoms: Therapy Focus/Content of Session: Self-care, Stress management, Mood/affect regulation, and Self-esteem thinking about the constancy and possibly novelty moving to [place] if she stays, on the other hand, she could have multiple intensities of visits and trips because more available money MOOD: pretty good in the conext of some situational depression re politics etc and moving PLAN: continue to take little trips and live life now MEDICATIONS: Per medical record: No current outpatient medications on file. No current facility-administered medications for this visit. Psychiatric Medication Issues: No change from previous appointment DIAGNOSIS: Isabella I: Depression, recurrent Adjustment mixed self esteem Isabella II: deferred Isabella III: see med record Isabella IV: self esteem and situational depression Isabella V: 53-65 TREATMENT PROGRESS/ASSESSMENT: Progressing satisfactorily. TREATMENT PLAN/GOALS: Continue in therapy focusing on self-care, interpersonal relationships, affect management, and self-esteem. Next appointment: as scheduled Hermelindo Davis PhD [facility] 08-26-2024 Note HNO ID: [id number] Author: HERMELINDO DAVIS PhD Service: ? Author Type: Psychologist Type: Progress Notes Filed: 08/26/2024 17:15 Note Text: [facility] Department Progress Note Tiffany Nuñez 08/26/2024 [id number] PROVIDER: Hermelindo Davis PhD CPT Code: Time: 50 minutes Setting: Patient seen in person Parties Present: Patient Treatment Modality/Interventions: Cognitive Behavioral Reassurance/Supportive Insight oriented Problem solving Processing of emotions Psychoeducation MENTAL STATUS: Mood: variable Affect: mood-congruent Thoughts/Associations:goal directed Suicidal/Homicidal Ideation: None expressed or evidenced Other Prominent Symptoms: Therapy Focus/Content of Session: Self-care, Mood/affect regulation, and Self-esteem MOVE: she is struggling w how she will manage the dog w no yard .... but there are dog matute etc... it will just be different MOOD: fairly good but easily Awfulizes know that and has a friend who does it even more that gives her a perspective on what SHE does OUTCOME: she can get a better handle on it selling the house and going out to [place] to tour and get a reality check once her friend is there MEDICATIONS: Per medical record: No current outpatient medications on file. No current facility-administered medications for this visit. Psychiatric Medication Issues: No change from previous appointment DIAGNOSIS: Isabella I: Depression, recurrent Adjustment mixed self esteem Isabella II: deferred Isabella III: see med record Isabella IV: self esteem and situational depression Isabella V: 53-65 TREATMENT PROGRESS/ASSESSMENT: Progressing satisfactorily. TREATMENT PLAN/GOALS: Continue in therapy focusing on self-care, affect management, and self-esteem. Next appointment: as scheduled Hermelindo Davis PhD [facility] 08-05-2024 Note HNO ID: [id number] Author: HERMELINDO DAVIS PhD Service: ? Author Type: Psychologist Type: Progress Notes Filed: 08/05/2024 17:13 Note Text: [facility] Department Progress Note Tiffany Nuñez 08/05/2024 [id number] PROVIDER: Hermelindo Davis PhD CPT Code: Time: 50 minutes Setting: Patient seen in person Parties Present: Patient Treatment Modality/Interventions: Cognitive Behavioral Reassurance/Supportive Insight oriented Problem solving Processing of emotions Psychoeducation MENTAL STATUS: Mood: variable Affect: mood-congruent Thoughts/Associations:goal directed Suicidal/Homicidal Ideation: None expressed or evidenced Other Prominent Symptoms: Therapy Focus/Content of Session: Self-care, Stress management, Mood/affect regulation, Interpersonal, and Self-esteem MOVING: her friend has committed to spending summers at least until she get her own place .. renting one of the units Pt has reasonable minimal resources to move in the same [facility] PLAN: get going w exercise at [facility], go thru things, get a realtor, review finances w her friend etc. Health: seems steady and workable Time to move would be the end of the year or a bit beyond that News and the government distresses her PLAN: do your self well... and be more able to help or invite others vs just wish and use Shoulds and Oughts MEDICATIONS: Per medical record: No current outpatient medications on file. No current facility-administered medications for this visit. Psychiatric Medication Issues: No change from previous appointment DIAGNOSIS: Isabella I: Depression, recurrent Adjustment mixed self esteem Isabella II: deferred Isabella III: see med record Isabella IV: self esteem and situational depression Isabella V: 53-65 TREATMENT PROGRESS/ASSESSMENT: Progressing satisfactorily. TREATMENT PLAN/GOALS: Continue in therapy focusing on self-care, assertiveness skills, affect management, and self-esteem. Next appointment: as scheduled Hermelindo Davis PhD [facility] 07-20-2024 Note HNO ID: [id number] Author: HERMELINDO DAVIS PhD Service: ? Author Type: Psychologist Type: Progress Notes Filed: 07/20/2024 16:01 Note Text: [facility] Department Progress Note Tiffany Nuñez 07/20/2024 [id number] PROVIDER: Hermelindo Davis PhD CPT Code: Time: 50 minutes Setting: Patient seen in person Parties Present: Patient Treatment Modality/Interventions: Cognitive Behavioral Reassurance/Supportive Insight oriented Problem solving Processing of emotions Psychoeducation MENTAL STATUS: Mood: variable Affect: mood-congruent Thoughts/Associations:goal directed Suicidal/Homicidal Ideation: None expressed or evidenced Other Prominent Symptoms: Therapy Focus/Content of Session: Self-care, Stress management, Mood/affect regulation, and Self-esteem Pt's friend has checked out the place in [place] and found it friendly and a good match Pt will need to see what it will cost to live there monthly and what she might get for her house here Essential Tremor: she is having difficulty with the keyboard PLAN: see first if she can reduce caffeine and if not... she might need to work on BP med shifts Dog: she likes large dogs and can keep hers ... if she were to move to [place] She would like another but it is likely impractical Health: fairly steady MEDICATIONS: Per medical record: No current outpatient medications on file. No current facility-administered medications for this visit. Psychiatric Medication Issues: No change from previous appointment DIAGNOSIS: Isabella I: Depression, recurrent Adjustment mixed self esteem Isabella II: deferred Isabella III: see med record Isabella IV: self esteem and situational depression Isabella V: 53-65 TREATMENT PROGRESS/ASSESSMENT: Progressing satisfactorily. TREATMENT PLAN/GOALS: Continue in therapy focusing on self-care, affect management, and self-esteem. Next appointment: as scheduled Hermelindo Davis PhD [facility] 06-29-2024 Note HNO ID: [id number] Author: HERMELINDO DAVIS PhD Service: ? Author Type: Psychologist Type: Progress Notes Filed: 06/29/2024 16:09 Note Text: [facility] Department Progress Note Tiffany Farah Joaquin 06/29/2024 [id number] PROVIDER: Hermelindo Davis PhD CPT Code: Time: 50 minutes Setting: Patient seen in person Parties Present: Patient Treatment Modality/Interventions: Cognitive Behavioral Reassurance/Supportive Insight oriented Problem solving Processing of emotions Psychoeducation MENTAL STATUS: Mood: variable Affect: mood-congruent Thoughts/Associations:goal directed Suicidal/Homicidal Ideation: None expressed or evidenced Other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 Type:Provider Instructions for Treatment How to Access Health Informa tion Online using Patient Portal and [employer] Indication:Non-smoker Start:10-Aug-2020 Instruction Type:Patient Education How to Access Health Informa tion Online using Patient Portal and [employer] Indication:Non-smoker Start:20-Jul-2020 Instruction Type:Patient Education Patient Instructions Indication:Non-smoker Start:20-Jul-2020 Instruction Type:Provider Instructions for Treatment How to Access Health Informa tion Online using Patient Portal and [employer] Indication:Non-smoker Start:29-Jun-2020 Instruction Type:Patient Education Patient Instructions Indication:Non-smoker Start:29-Jun-2020 Instruction Type:Provider Instructions for Treatment How to Access Health Informa tion Online using Patient Portal and [employer] Apps Indication:Non-smoker Start:07-Jun-2020 Instruction Type:Patient Education Patient Instructions Indication:Non-smoker Start:07-Jun-2020 Instruction Type:Provider Instructions for Treatment How to Access Health Informa tion Online using Patient Portal and [employer] Apps Indication:Non-smoker Start:24-May-2020 Instruction Type:Patient Education Patient Instructions Indication:Non-smoker Start:24-May-2020 Instruction Type:Provider Instructions for Treatment Patient Instructions Indication:Non-smoker Start:08-Mar-2020 Instruction Type:Provider Instructions for Treatment How to Access Health Informa tion Online using Patient Portal and [employer] Indication:Non-smoker Start:08-Mar-2020 Instruction Type:Patient Education obesity [...] tion Online using Patient Portal and [employer] Indication:BMI 32.0-32.9,adult Start:11-Jun-2021 Instruction Type:Patient Education Patient Instructions Indication:Non-smoker Start:16-May-2021 Instruction Type:Provider Instructions for Treatment How to Access Health Informa tion Online using Patient Portal and [employer] Indication:Non-smoker Start:16-May-2021 Instruction Type:Patient Education Patient Instructions Indication:BMI 31.0-31.9,adult Start:29-Jan-2021 Instruction Type:Provider Instructions for Treatment How to Access Health Informa tion Online using Patient Portal and [employer] Indication:BMI 31.0-31.9,adult Start:29-Jan-2021 Instruction Type:Patient Education Patient Instructions Indication:Non-smoker Start:11-Dec-2020 Instruction Type:Provider Instructions for Treatment How to Access Health Informa tion Online using Patient Portal and [employer] Indication:Non-smoker Start:11-Dec-2020 Instruction Type:Patient Education How to Access Health Informa tion Online using Patient Portal and [employer] Apps Indication:Non-smoker Start:31-Aug-2020 Instruction Type:Patient Education Patient Instructions Indication:Non-smoker Start:31-Aug-2020 Instruction Type:Provider Instructions for Treatment Patient Instructions Indication:Non-smoker Start:10-Aug-2020 Instruction Type:Provider Instructions for Treatment How to Access Health Informa tion Online using Patient Portal and [employer] Indication:Non-smoker Start:10-Aug-2020 Instruction Type:Patient Education How to Access Health Informa tion Online using Patient Portal and [employer] Apps Indication:Non-smoker Start:20-Jul-2020 Instruction Type:Patient Education Patient Instructions Indication:Non-smoker Start:20-Jul-2020 Instruction Type:Provider Instructions for Treatment How to Access Health Informa tion Online using Patient Portal and [employer] Apps Indication:Non-smoker Start:29-Jun-2020 Instruction Type:Patient Education Patient Instructions Indication:Non-smoker Start:29-Jun-2020 Instruction Type:Provider Instructions for Treatment How to Access Health Informa tion Online using Patient Portal and [employer] Apps Indication:Non-smoker Start:07-Jun-2020 Instruction Type:Patient Education Patient Instructions Indication:Non-smoker Start:07-Jun-2020 Instruction Type:Provider Instructions for Treatment How to Access Health Informa tion Online using Patient Portal and [employer] Indication:Non-smoker Start:24-May-2020 Instruction Type:Patient Education Patient Instructions Indication:Non-smoker Start:24-May-2020 Instruction Type:Provider Instructions for Treatment Patient Instructions Indication:Non-smoker Start:08-Mar-2020 Instruction Type:Provider Instructions for Treatment How to Access Health Informa tion Online using Patient Portal and [employer] Indication:Non-smoker Start:08-Mar-2020 Instruction Type:Patient Education obesity [...] tion Online using Patient Portal and [employer] Indication:Non-smoker Start:16-Aug-2021 Instruction Type:Patient Education Patient Instructions Indication:BMI 32.0-32.9,adult Start:11-Jun-2021 Instruction Type:Provider Instructions for Treatment How to Access Health Informa tion Online using Patient Portal and [employer] Indication:BMI 32.0-32.9,adult Start:11-Jun-2021 Instruction Type:Patient Education Patient Instructions Indication:Non-smoker Start:16-May-2021 Instruction Type:Provider Instructions for Treatment How to Access Health Informa tion Online using Patient Portal and [employer] Indication:Non-smoker Start:16-May-2021 Instruction Type:Patient Education Patient Instructions Indication:BMI 31.0-31.9,adult Start:29-Jan-2021 Instruction Type:Provider Instructions for Treatment How to Access Health Informa tion Online using Patient Portal and [employer] Indication:BMI 31.0-31.9,adult Start:29-Jan-2021 Instruction Type:Patient Education Patient Instructions Indication:Non-smoker Start:11-Dec-2020 Instruction Type:Provider Instructions for Treatment How to Access Health Informa tion Online using Patient Portal and [employer] Indication:Non-smoker Start:11-Dec-2020 Instruction Type:Patient Education How to Access Health Informa tion Online using Patient Portal and [employer] Apps Indication:Non-smoker Start:31-Aug-2020 Instruction Type:Patient Education Patient Instructions Indication:Non-smoker Start:31-Aug-2020 Instruction Type:Provider Instructions for Treatment Patient Instructions Indication:Non-smoker Start:10-Aug-2020 Instruction Type:Provider Instructions for Treatment How to Access Health Informa tion Online using Patient Portal and [employer] Indication:Non-smoker Start:10-Aug-2020 Instruction Type:Patient Education How to Access Health Informa tion Online using Patient Portal and [employer] Indication:Non-smoker Start:20-Jul-2020 Instruction Type:Patient Education Patient Instructions Indication:Non-smoker Start:20-Jul-2020 Instruction Type:Provider Instructions for Treatment How to Access Health Informa tion Online using Patient Portal and [employer] Indication:Non-smoker Start:29-Jun-2020 Instruction Type:Patient Education Patient Instructions Indication:Non-smoker Start:29-Jun-2020 Instruction Type:Provider Instructions for Treatment How to Access Health Informa tion Online using Patient Portal and [employer] Indication:Non-smoker Start:07-Jun-2020 Instruction Type:Patient Education Patient Instructions Indication:Non-smoker Start:07-Jun-2020 Instruction Type:Provider Instructions for Treatment How to Access Health Informa tion Online using Patient Portal and [employer] Indication:Non-smoker Start:24-May-2020 Instruction Type:Patient Education Patient Instructions Indication:Non-smoker Start:24-May-2020 Instruction Type:Provider Instructions for Treatment Patient Instructions Indication:Non-smoker Start:08-Mar-2020 Instruction Type:Provider Instructions for Treatment How to Access Health Informa tion Online using Patient Portal and [employer] Indication:Non-smoker Start:08-Mar-2020 Instruction Type:Patient Education obesity [...] tion Online using Patient Portal and [employer] Indication:BMI 32.0-32.9,adult Start:07-Nov-2021 Instruction Type:Patient Education Patient Instructions Indication:Non-smoker Start:16-Aug-2021 Instruction Type:Provider Instructions for Treatment How to Access Health Informa tion Online using Patient Portal and [employer] Indication:Non-smoker Start:16-Aug-2021 Instruction Type:Patient Education Patient Instructions Indication:BMI 32.0-32.9,adult Start:11-Jun-2021 Instruction Type:Provider Instructions for Treatment How to Access Health Informa tion Online using Patient Portal and [employer] Indication:BMI 32.0-32.9,adult Start:11-Jun-2021 Instruction Type:Patient Education Patient Instructions Indication:Non-smoker Start:16-May-2021 Instruction Type:Provider Instructions for Treatment How to Access Health Informa tion Online using Patient Portal and [employer] Indication:Non-smoker Start:16-May-2021 Instruction Type:Patient Education Patient Instructions Indication:BMI 31.0-31.9,adult Start:29-Jan-2021 Instruction Type:Provider Instructions for Treatment How to Access Health Informa tion Online using Patient Portal and [employer] Indication:BMI 31.0-31.9,adult Start:29-Jan-2021 Instruction Type:Patient Education Patient Instructions Indication:Non-smoker Start:11-Dec-2020 Instruction Type:Provider Instructions for Treatment How to Access Health Informa tion Online using Patient Portal and [employer] Indication:Non-smoker Start:11-Dec-2020 Instruction Type:Patient Education How to Access Health Informa tion Online using Patient Portal and [employer] Indication:Non-smoker Start:31-Aug-2020 Instruction Type:Patient Education Patient Instructions Indication:Non-smoker Start:31-Aug-2020 Instruction Type:Provider Instructions for Treatment Patient Instructions Indication:Non-smoker Start:10-Aug-2020 Instruction Type:Provider Instructions for Treatment How to Access Health Informa tion Online using Patient Portal and [employer] Apps Indication:Non-smoker Start:10-Aug-2020 Instruction Type:Patient Education How to Access Health Informa tion Online using Patient Portal and [employer] Apps Indication:Non-smoker Start:20-Jul-2020 Instruction Type:Patient Education Patient Instructions Indication:Non-smoker Start:20-Jul-2020 Instruction Type:Provider Instructions for Treatment How to Access Health Informa tion Online using Patient Portal and [employer] Apps Indication:Non-smoker Start:29-Jun-2020 Instruction Type:Patient Education Patient Instructions Indication:Non-smoker Start:29-Jun-2020 Instruction Type:Provider Instructions for Treatment How to Access Health Informa tion Online using Patient Portal and [employer] Apps Indication:Non-smoker Start:07-Jun-2020 Instruction Type:Patient Education Patient Instructions Indication:Non-smoker Start:07-Jun-2020 Instruction Type:Provider Instructions for Treatment How to Access Health Informa tion Online using Patient Portal and [employer] Apps Indication:Non-smoker Start:24-May-2020 Instruction Type:Patient Education Patient Instructions Indication:Non-smoker Start:24-May-2020 Instruction Type:Provider Instructions for Treatment Patient Instructions Indication:Non-smoker Start:08-Mar-2020 Instruction Type:Provider Instructions for Treatment How to Access Health Informa tion Online using Patient Portal and [employer] Apps Indication:Non-smoker Start:08-Mar-2020 Instruction Type:Patient Education obesity [...] tion Online using Patient Portal and [employer] Apps Indication:BMI 32.0-32.9,adult Start:07-Nov-2021 Instruction Type:Patient Education Patient Instructions Indication:Non-smoker Start:16-Aug-2021 Instruction Type:Provider Instructions for Treatment How to Access Health Informa tion Online using Patient Portal and [employer] Apps Indication:Non-smoker Start:16-Aug-2021 Instruction Type:Patient Education Patient Instructions Indication:BMI 32.0-32.9,adult Start:11-Jun-2021 Instruction Type:Provider Instructions for Treatment How to Access Health Informa tion Online using Patient Portal and [employer] Apps Indication:BMI 32.0-32.9,adult Start:11-Jun-2021 Instruction Type:Patient Education Patient Instructions Indication:Non-smoker Start:16-May-2021 Instruction Type:Provider Instructions for Treatment How to Access Health Informa tion Online using Patient Portal and [employer] Apps Indication:Non-smoker Start:16-May-2021 Instruction Type:Patient Education Patient Instructions Indication:BMI 31.0-31.9,adult Start:29-Jan-2021 Instruction Type:Provider Instructions for Treatment How to Access Health Informa tion Online using Patient Portal and [employer] Apps Indication:BMI 31.0-31.9,adult Start:29-Jan-2021 Instruction Type:Patient Education Patient Instructions Indication:Non-smoker Start:11-Dec-2020 Instruction Type:Provider Instructions for Treatment How to Access Health Informa tion Online using Patient Portal and [employer] Apps Indication:Non-smoker Start:11-Dec-2020 Instruction Type:Patient Education How to Access Health Informa tion Online using Patient Portal and [employer] Apps Indication:Non-smoker Start:31-Aug-2020 Instruction Type:Patient Education Patient Instructions Indication:Non-smoker Start:31-Aug-2020 Instruction Type:Provider Instructions for Treatment Patient Instructions Indication:Non-smoker Start:10-Aug-2020 Instruction Type:Provider Instructions for Treatment How to Access Health Informa tion Online using Patient Portal and [employer] Apps Indication:Non-smoker Start:10-Aug-2020 Instruction Type:Patient Education How to Access Health Informa tion Online using Patient Portal and [employer] Apps Indication:Non-smoker Start:20-Jul-2020 Instruction Type:Patient Education Patient Instructions Indication:Non-smoker Start:20-Jul-2020 Instruction Type:Provider Instructions for Treatment How to Access Health Informa tion Online using Patient Portal and [employer] Apps Indication:Non-smoker Start:29-Jun-2020 Instruction Type:Patient Education Patient Instructions Indication:Non-smoker Start:29-Jun-2020 Instruction Type:Provider Instructions for Treatment How to Access Health Informa tion Online using Patient Portal and [employer] Apps Indication:Non-smoker Start:07-Jun-2020 Instruction Type:Patient Education Patient Instructions Indication:Non-smoker Start:07-Jun-2020 Instruction Type:Provider Instructions for Treatment How to Access Health Informa tion Online using Patient Portal and [employer] Apps Indication:Non-smoker Start:24-May-2020 Instruction Type:Patient Education Patient Instructions Indication:Non-smoker Start:24-May-2020 Instruction Type:Provider Instructions for Treatment Patient Instructions Indication:Non-smoker Start:08-Mar-2020 Instruction Type:Provider Instructions for Treatment How to Access Health Informa tion Online using Patient Portal and [employer] Apps Indication:Non-smoker Start:08-Mar-2020 Instruction Type:Patient Education obesity [...] tion Online using Patient Portal and [employer] Apps Indication:BMI 33.0-33.9,adult Start:11-Feb-2022 Instruction Type:Patient Education Patient Instructions Indication:BMI 32.0-32.9,adult Start:07-Nov-2021 Instruction Type:Provider Instructions for Treatment How to Access Health Informa tion Online using Patient Portal and [employer] Apps Indication:BMI 32.0-32.9,adult Start:07-Nov-2021 Instruction Type:Patient Education Patient Instructions Indication:Non-smoker Start:16-Aug-2021 Instruction Type:Provider Instructions for Treatment How to Access Health Informa tion Online using Patient Portal and [employer] Apps Indication:Non-smoker Start:16-Aug-2021 Instruction Type:Patient Education Patient Instructions Indication:BMI 32.0-32.9,adult Start:11-Jun-2021 Instruction Type:Provider Instructions for Treatment How to Access Health Informa tion Online using Patient Portal and [employer] Apps Indication:BMI 32.0-32.9,adult Start:11-Jun-2021 Instruction Type:Patient Education Patient Instructions Indication:Non-smoker Start:16-May-2021 Instruction Type:Provider Instructions for Treatment How to Access Health Informa tion Online using Patient Portal and [employer] Apps Indication:Non-smoker Start:16-May-2021 Instruction Type:Patient Education Patient Instructions Indication:BMI 31.0-31.9,adult Start:29-Jan-2021 Instruction Type:Provider Instructions for Treatment How to Access Health Informa tion Online using Patient Portal and [employer] Apps Indication:BMI 31.0-31.9,adult Start:29-Jan-2021 Instruction Type:Patient Education Patient Instructions Indication:Non-smoker Start:11-Dec-2020 Instruction Type:Provider Instructions for Treatment How to Access Health Informa tion Online using Patient Portal and [employer] Apps Indication:Non-smoker Start:11-Dec-2020 Instruction Type:Patient Education How to Access Health Informa tion Online using Patient Portal and [employer] Apps Indication:Non-smoker Start:31-Aug-2020 Instruction Type:Patient Education Patient Instructions Indication:Non-smoker Start:31-Aug-2020 Instruction Type:Provider Instructions for Treatment Patient Instructions Indication:Non-smoker Start:10-Aug-2020 Instruction Type:Provider Instructions for Treatment How to Access Health Informa tion Online using Patient Portal and [employer] Apps Indication:Non-smoker Start:10-Aug-2020 Instruction Type:Patient Education How to Access Health Informa tion Online using Patient Portal and [employer] Apps Indication:Non-smoker Start:20-Jul-2020 Instruction Type:Patient Education Patient Instructions Indication:Non-smoker Start:20-Jul-2020 Instruction Type:Provider Instructions for Treatment How to Access Health Informa tion Online using Patient Portal and [employer] Apps Indication:Non-smoker Start:29-Jun-2020 Instruction Type:Patient Education Patient Instructions Indication:Non-smoker Start:29-Jun-2020 Instruction Type:Provider Instructions for Treatment How to Access Health Informa tion Online using Patient Portal and [employer] Apps Indication:Non-smoker Start:07-Jun-2020 Instruction Type:Patient Education Patient Instructions Indication:Non-smoker Start:07-Jun-2020 Instruction Type:Provider Instructions for Treatment How to Access Health Informa tion Online using Patient Portal and [employer] Apps Indication:Non-smoker Start:24-May-2020 Instruction Type:Patient Education Patient Instructions Indication:Non-smoker Start:24-May-2020 Instruction Type:Provider Instructions for Treatment Patient Instructions Indication:Non-smoker Start:08-Mar-2020 Instruction Type:Provider Instructions for Treatment How to Access Health Informa tion Online using Patient Portal and [employer] Apps Indication:Non-smoker Start:08-Mar-2020 Instruction Type:Patient Education obesity [...] tion Online using Patient Portal and [employer] Apps Indication:BMI 33.0-33.9,adult Start:11-Feb-2022 Instruction Type:Patient Education Patient Instructions Indication:BMI 32.0-32.9,adult Start:07-Nov-2021 Instruction Type:Provider Instructions for Treatment How to Access Health Informa tion Online using Patient Portal and [employer] Apps Indication:BMI 32.0-32.9,adult Start:07-Nov-2021 Instruction Type:Patient Education Patient Instructions Indication:Non-smoker Start:16-Aug-2021 Instruction Type:Provider Instructions for Treatment How to Access Health Informa tion Online using Patient Portal and [employer] Apps Indication:Non-smoker Start:16-Aug-2021 Instruction Type:Patient Education Patient Instructions Indication:BMI 32.0-32.9,adult Start:11-Jun-2021 Instruction Type:Provider Instructions for Treatment How to Access Health Informa tion Online using Patient Portal and [employer] Apps Indication:BMI 32.0-32.9,adult Start:11-Jun-2021 Instruction Type:Patient Education Patient Instructions Indication:Non-smoker Start:16-May-2021 Instruction Type:Provider Instructions for Treatment How to Access Health Informa tion Online using Patient Portal and [employer] Apps Indication:Non-smoker Start:16-May-2021 Instruction Type:Patient Education Patient Instructions Indication:BMI 31.0-31.9,adult Start:29-Jan-2021 Instruction Type:Provider Instructions for Treatment How to Access Health Informa tion Online using Patient Portal and [employer] Apps Indication:BMI 31.0-31.9,adult Start:29-Jan-2021 Instruction Type:Patient Education Patient Instructions Indication:Non-smoker Start:11-Dec-2020 Instruction Type:Provider Instructions for Treatment How to Access Health Informa tion Online using Patient Portal and [employer] Apps Indication:Non-smoker Start:11-Dec-2020 Instruction Type:Patient Education How to Access Health Informa tion Online using Patient Portal and [employer] Apps Indication:Non-smoker Start:31-Aug-2020 Instruction Type:Patient Education Patient Instructions Indication:Non-smoker Start:31-Aug-2020 Instruction Type:Provider Instructions for Treatment Patient Instructions Indication:Non-smoker Start:10-Aug-2020 Instruction Type:Provider Instructions for Treatment How to Access Health Informa tion Online using Patient Portal and [employer] Apps Indication:Non-smoker Start:10-Aug-2020 Instruction Type:Patient Education How to Access Health Informa tion Online using Patient Portal and [employer] Apps Indication:Non-smoker Start:20-Jul-2020 Instruction Type:Patient Education Patient Instructions Indication:Non-smoker Start:20-Jul-2020 Instruction Type:Provider Instructions for Treatment How to Access Health Informa tion Online using Patient Portal and [employer] Apps Indication:Non-smoker Start:29-Jun-2020 Instruction Type:Patient Education Patient Instructions Indication:Non-smoker Start:29-Jun-2020 Instruction Type:Provider Instructions for Treatment How to Access Health Informa tion Online using Patient Portal and [employer] Apps Indication:Non-smoker Start:07-Jun-2020 Instruction Type:Patient Education Patient Instructions Indication:Non-smoker Start:07-Jun-2020 Instruction Type:Provider Instructions for Treatment How to Access Health Informa tion Online using Patient Portal and [employer] Apps Indication:Non-smoker Start:24-May-2020 Instruction Type:Patient Education Patient Instructions Indication:Non-smoker Start:24-May-2020 Instruction Type:Provider Instructions for Treatment Patient Instructions Indication:Non-smoker Start:08-Mar-2020 Instruction Type:Provider Instructions for Treatment How to Access Health Informa tion Online using Patient Portal and [employer] Apps Indication:Non-smoker Start:08-Mar-2020 Instruction Type:Patient Education obesity [...] tion Online using Patient Portal and [employer] Apps Indication:BMI 33.0-33.9,adult Start:11-Feb-2022 Instruction Type:Patient Education Patient Instructions Indication:BMI 32.0-32.9,adult Start:07-Nov-2021 Instruction Type:Provider Instructions for Treatment How to Access Health Informa tion Online using Patient Portal and [employer] Apps Indication:BMI 32.0-32.9,adult Start:07-Nov-2021 Instruction Type:Patient Education Patient Instructions Indication:Non-smoker Start:16-Aug-2021 Instruction Type:Provider Instructions for Treatment How to Access Health Informa tion Online using Patient Portal and [employer] Apps Indication:Non-smoker Start:16-Aug-2021 Instruction Type:Patient Education Patient Instructions Indication:BMI 32.0-32.9,adult Start:11-Jun-2021 Instruction Type:Provider Instructions for Treatment How to Access Health Informa tion Online using Patient Portal and [employer] Apps Indication:BMI 32.0-32.9,adult Start:11-Jun-2021 Instruction Type:Patient Education Patient Instructions Indication:Non-smoker Start:16-May-2021 Instruction Type:Provider Instructions for Treatment How to Access Health Informa tion Online using Patient Portal and [employer] Apps Indication:Non-smoker Start:16-May-2021 Instruction Type:Patient Education Patient Instructions Indication:BMI 31.0-31.9,adult Start:29-Jan-2021 Instruction Type:Provider Instructions for Treatment How to Access Health Informa tion Online using Patient Portal and [employer] Apps Indication:BMI 31.0-31.9,adult Start:29-Jan-2021 Instruction Type:Patient Education Patient Instructions Indication:Non-smoker Start:11-Dec-2020 Instruction Type:Provider Instructions for Treatment How to Access Health Informa tion Online using Patient Portal and [employer] Apps Indication:Non-smoker Start:11-Dec-2020 Instruction Type:Patient Education How to Access Health Informa tion Online using Patient Portal and [employer] Apps Indication:Non-smoker Start:31-Aug-2020 Instruction Type:Patient Education Patient Instructions Indication:Non-smoker Start:31-Aug-2020 Instruction Type:Provider Instructions for Treatment Patient Instructions Indication:Non-smoker Start:10-Aug-2020 Instruction Type:Provider Instructions for Treatment How to Access Health Informa tion Online using Patient Portal and [employer] Apps Indication:Non-smoker Start:10-Aug-2020 Instruction Type:Patient Education How to Access Health Informa tion Online using Patient Portal and [employer] Apps Indication:Non-smoker Start:20-Jul-2020 Instruction Type:Patient Education Patient Instructions Indication:Non-smoker Start:20-Jul-2020 Instruction Type:Provider Instructions for Treatment How to Access Health Informa tion Online using Patient Portal and [employer] Apps Indication:Non-smoker Start:29-Jun-2020 Instruction Type:Patient Education Patient Instructions Indication:Non-smoker Start:29-Jun-2020 Instruction Type:Provider Instructions for Treatment How to Access Health Informa tion Online using Patient Portal and [employer] Apps Indication:Non-smoker Start:07-Jun-2020 Instruction Type:Patient Education Patient Instructions Indication:Non-smoker Start:07-Jun-2020 Instruction Type:Provider Instructions for Treatment How to Access Health Informa tion Online using Patient Portal and [employer] Apps Indication:Non-smoker Start:24-May-2020 Instruction Type:Patient Education Patient Instructions Indication:Non-smoker Start:24-May-2020 Instruction Type:Provider Instructions for Treatment Patient Instructions Indication:Non-smoker Start:08-Mar-2020 Instruction Type:Provider Instructions for Treatment How to Access Health Informa tion Online using Patient Portal and [employer] Apps Indication:Non-smoker Start:08-Mar-2020 Instruction Type:Patient Education obesity [...] tion Online using Patient Portal and [employer] Apps Indication:Encounter for screening mammogram for malignant neoplasm of breast Start:17-May-2022 Instruction Type:Patient Education Patient Instructions Indication:BMI 33.0-33.9,adult Start:11-Feb-2022 Instruction Type:Provider Instructions for Treatment How to Access Health Informa tion Online using Patient Portal and [employer] Apps Indication:BMI 33.0-33.9,adult Start:11-Feb-2022 Instruction Type:Patient Education Patient Instructions Indication:BMI 32.0-32.9,adult Start:07-Nov-2021 Instruction Type:Provider Instructions for Treatment How to Access Health Informa tion Online using Patient Portal and [employer] Apps Indication:BMI 32.0-32.9,adult Start:07-Nov-2021 Instruction Type:Patient Education Patient Instructions Indication:Non-smoker Start:16-Aug-2021 Instruction Type:Provider Instructions for Treatment How to Access Health Informa tion Online using Patient Portal and [employer] Apps Indication:Non-smoker Start:16-Aug-2021 Instruction Type:Patient Education Patient Instructions Indication:BMI 32.0-32.9,adult Start:11-Jun-2021 Instruction Type:Provider Instructions for Treatment How to Access Health Informa tion Online using Patient Portal and [employer] Apps Indication:BMI 32.0-32.9,adult Start:11-Jun-2021 Instruction Type:Patient Education Patient Instructions Indication:Non-smoker Start:16-May-2021 Instruction Type:Provider Instructions for Treatment How to Access Health Informa tion Online using Patient Portal and [employer] Apps Indication:Non-smoker Start:16-May-2021 Instruction Type:Patient Education Patient Instructions Indication:BMI 31.0-31.9,adult Start:29-Jan-2021 Instruction Type:Provider Instructions for Treatment How to Access Health Informa tion Online using Patient Portal and [employer] Apps Indication:BMI 31.0-31.9,adult Start:29-Jan-2021 Instruction Type:Patient Education Patient Instructions Indication:Non-smoker Start:11-Dec-2020 Instruction Type:Provider Instructions for Treatment How to Access Health Informa tion Online using Patient Portal and [employer] Apps Indication:Non-smoker Start:11-Dec-2020 Instruction Type:Patient Education How to Access Health Informa tion Online using Patient Portal and [employer] Apps Indication:Non-smoker Start:31-Aug-2020 Instruction Type:Patient Education Patient Instructions Indication:Non-smoker Start:31-Aug-2020 Instruction Type:Provider Instructions for Treatment Patient Instructions Indication:Non-smoker Start:10-Aug-2020 Instruction Type:Provider Instructions for Treatment How to Access Health Informa tion Online using Patient Portal and [employer] Apps Indication:Non-smoker Start:10-Aug-2020 Instruction Type:Patient Education How to Access Health Informa tion Online using Patient Portal and [employer] Apps Indication:Non-smoker Start:20-Jul-2020 Instruction Type:Patient Education Patient Instructions Indication:Non-smoker Start:20-Jul-2020 Instruction Type:Provider Instructions for Treatment How to Access Health Informa tion Online using Patient Portal and [employer] Apps Indication:Non-smoker Start:29-Jun-2020 Instruction Type:Patient Education Patient Instructions Indication:Non-smoker Start:29-Jun-2020 Instruction Type:Provider Instructions for Treatment How to Access Health Informa tion Online using Patient Portal and [employer] Apps Indication:Non-smoker Start:07-Jun-2020 Instruction Type:Patient Education Patient Instructions Indication:Non-smoker Start:07-Jun-2020 Instruction Type:Provider Instructions for Treatment How to Access Health Informa tion Online using Patient Portal and [employer] Apps Indication:Non-smoker Start:24-May-2020 Instruction Type:Patient Education Patient Instructions Indication:Non-smoker Start:24-May-2020 Instruction Type:Provider Instructions for Treatment Patient Instructions Indication:Non-smoker Start:08-Mar-2020 Instruction Type:Provider Instructions for Treatment How to Access Health Informa tion Online using Patient Portal and [employer] Apps Indication:Non-smoker Start:08-Mar-2020 Instruction Type:Patient Education obesity [...] Informa tion Online using Patient Portal and [employer] Apps Indication:Encounter for screening mammogram for malignant neoplasm of breast Start:17-May-2022 Instruction Type:Patient Education Patient Instructions Indication:BMI 33.0-33.9,adult Start:11-Feb-2022 Instruction Type:Provider Instructions for Treatment How to Access Health Informa tion Online using Patient Portal and [employer] Apps Indication:BMI 33.0-33.9,adult Start:11-Feb-2022 Instruction Type:Patient Education Patient Instructions Indication:BMI 32.0-32.9,adult Start:07-Nov-2021 Instruction Type:Provider Instructions for Treatment How to Access Health Informa tion Online using Patient Portal and [employer] Indication:BMI 32.0-32.9,adult Start:07-Nov-2021 Instruction Type:Patient Education Patient Instructions Indication:Non-smoker Start:16-Aug-2021 Instruction Type:Provider Instructions for Treatment How to Access Health Informa tion Online using Patient Portal and [employer] Apps Indication:Non-smoker Start:16-Aug-2021 Instruction Type:Patient Education Patient Instructions Indication:BMI 32.0-32.9,adult Start:11-Jun-2021 Instruction Type:Provider Instructions for Treatment How to Access Health Informa tion Online using Patient Portal and [employer] Apps Indication:BMI 32.0-32.9,adult Start:11-Jun-2021 Instruction Type:Patient Education Patient Instructions Indication:Non-smoker Start:16-May-2021 Instruction Type:Provider Instructions for Treatment How to Access Health Informa tion Online using Patient Portal and [employer] Apps Indication:Non-smoker Start:16-May-2021 Instruction Type:Patient Education Patient Instructions Indication:BMI 31.0-31.9,adult Start:29-Jan-2021 Instruction Type:Provider Instructions for Treatment How to Access Health Informa tion Online using Patient Portal and [employer] Apps Indication:BMI 31.0-31.9,adult Start:29-Jan-2021 Instruction Type:Patient Education Patient Instructions Indication:Non-smoker Start:11-Dec-2020 Instruction Type:Provider Instructions for Treatment How to Access Health Informa tion Online using Patient Portal and [employer] Apps Indication:Non-smoker Start:11-Dec-2020 Instruction Type:Patient Education How to Access Health Informa tion Online using Patient Portal and [employer] Apps Indication:Non-smoker Start:31-Aug-2020 Instruction Type:Patient Education Patient Instructions Indication:Non-smoker Start:31-Aug-2020 Instruction Type:Provider Instructions for Treatment Patient Instructions Indication:Non-smoker Start:10-Aug-2020 Instruction Type:Provider Instructions for Treatment How to Access Health Informa tion Online using Patient Portal and [employer] Indication:Non-smoker Start:10-Aug-2020 Instruction Type:Patient Education How to Access Health Informa tion Online using Patient Portal and [employer] Apps Indication:Non-smoker Start:20-Jul-2020 Instruction Type:Patient Education Patient Instructions Indication:Non-smoker Start:20-Jul-2020 Instruction Type:Provider Instructions for Treatment How to Access Health Informa tion Online using Patient Portal and [employer] Apps Indication:Non-smoker Start:29-Jun-2020 Instruction Type:Patient Education Patient Instructions Indication:Non-smoker Start:29-Jun-2020 Instruction Type:Provider Instructions for Treatment How to Access Health Informa tion Online using Patient Portal and [employer] Apps Indication:Non-smoker Start:07-Jun-2020 Instruction Type:Patient Education Patient Instructions Indication:Non-smoker Start:07-Jun-2020 Instruction Type:Provider Instructions for Treatment How to Access Health Informa tion Online using Patient Portal and [employer] Apps Indication:Non-smoker Start:24-May-2020 Instruction Type:Patient Education Patient Instructions Indication:Non-smoker Start:24-May-2020 Instruction Type:Provider Instructions for Treatment Patient Instructions Indication:Non-smoker Start:08-Mar-2020 Instruction Type:Provider Instructions for Treatment How to Access Health Informa tion Online using Patient Portal and [employer] Apps Indication:Non-smoker Start:08-Mar-2020 Instruction Type:Patient Education obesity [...] Informa tion Online using Patient Portal and [employer] Apps Indication:Non-smoker Start:23-May-2022 Instruction Type:Patient Education Patient Instructions Indication:Encounter for screening mammogram for malignant neoplasm of breast Start:17-May-2022 Instruction Type:Provider Instructions for Treatment How to Access Health Informa tion Online using Patient Portal and [employer] Apps Indication:Encounter for screening mammogram for malignant neoplasm of breast Start:17-May-2022 Instruction Type:Patient Education Patient Instructions Indication:BMI 33.0-33.9,adult Start:11-Feb-2022 Instruction Type:Provider Instructions for Treatment How to Access Health Informa tion Online using Patient Portal and [employer] Apps Indication:BMI 33.0-33.9,adult Start:11-Feb-2022 Instruction Type:Patient Education Patient Instructions Indication:BMI 32.0-32.9,adult Start:07-Nov-2021 Instruction Type:Provider Instructions for Treatment How to Access Health Informa tion Online using Patient Portal and [employer] Apps Indication:BMI 32.0-32.9,adult Start:07-Nov-2021 Instruction Type:Patient Education Patient Instructions Indication:Non-smoker Start:16-Aug-2021 Instruction Type:Provider Instructions for Treatment How to Access Health Informa tion Online using Patient Portal and [employer] Apps Indication:Non-smoker Start:16-Aug-2021 Instruction Type:Patient Education Patient Instructions Indication:BMI 32.0-32.9,adult Start:11-Jun-2021 Instruction Type:Provider Instructions for Treatment How to Access Health Informa tion Online using Patient Portal and [employer] Apps Indication:BMI 32.0-32.9,adult Start:11-Jun-2021 Instruction Type:Patient Education Patient Instructions Indication:Non-smoker Start:16-May-2021 Instruction Type:Provider Instructions for Treatment How to Access Health Informa tion Online using Patient Portal and [employer] Apps Indication:Non-smoker Start:16-May-2021 Instruction Type:Patient Education Patient Instructions Indication:BMI 31.0-31.9,adult Start:29-Jan-2021 Instruction Type:Provider Instructions for Treatment How to Access Health Informa tion Online using Patient Portal and [employer] Apps Indication:BMI 31.0-31.9,adult Start:29-Jan-2021 Instruction Type:Patient Education Patient Instructions Indication:Non-smoker Start:11-Dec-2020 Instruction Type:Provider Instructions for Treatment How to Access Health Informa tion Online using Patient Portal and [employer] Apps Indication:Non-smoker Start:11-Dec-2020 Instruction Type:Patient Education How to Access Health Informa tion Online using Patient Portal and [employer] Apps Indication:Non-smoker Start:31-Aug-2020 Instruction Type:Patient Education Patient Instructions Indication:Non-smoker Start:31-Aug-2020 Instruction Type:Provider Instructions for Treatment Patient Instructions Indication:Non-smoker Start:10-Aug-2020 Instruction Type:Provider Instructions for Treatment How to Access Health Informa tion Online using Patient Portal and [employer] Apps Indication:Non-smoker Start:10-Aug-2020 Instruction Type:Patient Education How to Access Health Informa tion Online using Patient Portal and [employer] Apps Indication:Non-smoker Start:20-Jul-2020 Instruction Type:Patient Education Patient Instructions Indication:Non-smoker Start:20-Jul-2020 Instruction Type:Provider Instructions for Treatment How to Access Health Informa tion Online using Patient Portal and [employer] Apps Indication:Non-smoker Start:29-Jun-2020 Instruction Type:Patient Education Patient Instructions Indication:Non-smoker Start:29-Jun-2020 Instruction Type:Provider Instructions for Treatment How to Access Health Informa tion Online using Patient Portal and [employer] Apps Indication:Non-smoker Start:07-Jun-2020 Instruction Type:Patient Education Patient Instructions Indication:Non-smoker Start:07-Jun-2020 Instruction Type:Provider Instructions for Treatment How to Access Health Informa tion Online using Patient Portal and [employer] Apps Indication:Non-smoker Start:24-May-2020 Instruction Type:Patient Education Patient Instructions Indication:Non-smoker Start:24-May-2020 Instruction Type:Provider Instructions for Treatment Patient Instructions Indication:Non-smoker Start:08-Mar-2020 Instruction Type:Provider Instructions for Treatment How to Access Health Informa tion Online using Patient Portal and [employer] Apps Indication:Non-smoker Start:08-Mar-2020 Instruction Type:Patient Education obesity [...] tion Online using Patient Portal and [employer] Apps Indication:Non-smoker Start:23-May-2022 Instruction Type:Patient Education Patient Instructions Indication:Encounter for screening mammogram for malignant neoplasm of breast Start:17-May-2022 Instruction Type:Provider Instructions for Treatment How to Access Health Informa tion Online using Patient Portal and [employer] Apps Indication:Encounter for screening mammogram for malignant neoplasm of breast Start:17-May-2022 Instruction Type:Patient Education Patient Instructions Indication:BMI 33.0-33.9,adult Start:11-Feb-2022 Instruction Type:Provider Instructions for Treatment How to Access Health Informa tion Online using Patient Portal and [employer] Apps Indication:BMI 33.0-33.9,adult Start:11-Feb-2022 Instruction Type:Patient Education Patient Instructions Indication:BMI 32.0-32.9,adult Start:07-Nov-2021 Instruction Type:Provider Instructions for Treatment How to Access Health Informa tion Online using Patient Portal and [employer] Apps Indication:BMI 32.0-32.9,adult Start:07-Nov-2021 Instruction Type:Patient Education Patient Instructions Indication:Non-smoker Start:16-Aug-2021 Instruction Type:Provider Instructions for Treatment How to Access Health Informa tion Online using Patient Portal and [employer] Apps Indication:Non-smoker Start:16-Aug-2021 Instruction Type:Patient Education Patient Instructions Indication:BMI 32.0-32.9,adult Start:11-Jun-2021 Instruction Type:Provider Instructions for Treatment How to Access Health Informa tion Online using Patient Portal and [employer] Apps Indication:BMI 32.0-32.9,adult Start:11-Jun-2021 Instruction Type:Patient Education Patient Instructions Indication:Non-smoker Start:16-May-2021 Instruction Type:Provider Instructions for Treatment How to Access Health Informa tion Online using Patient Portal and [employer] Apps Indication:Non-smoker Start:16-May-2021 Instruction Type:Patient Education Patient Instructions Indication:BMI 31.0-31.9,adult Start:29-Jan-2021 Instruction Type:Provider Instructions for Treatment How to Access Health Informa tion Online using Patient Portal and [employer] Apps Indication:BMI 31.0-31.9,adult Start:29-Jan-2021 Instruction Type:Patient Education Patient Instructions Indication:Non-smoker Start:11-Dec-2020 Instruction Type:Provider Instructions for Treatment How to Access Health Informa tion Online using Patient Portal and [employer] Apps Indication:Non-smoker Start:11-Dec-2020 Instruction Type:Patient Education How to Access Health Informa tion Online using Patient Portal and [employer] Apps Indication:Non-smoker Start:31-Aug-2020 Instruction Type:Patient Education Patient Instructions Indication:Non-smoker Start:31-Aug-2020 Instruction Type:Provider Instructions for Treatment Patient Instructions Indication:Non-smoker Start:10-Aug-2020 Instruction Type:Provider Instructions for Treatment How to Access Health Informa tion Online using Patient Portal and [employer] Apps Indication:Non-smoker Start:10-Aug-2020 Instruction Type:Patient Education How to Access Health Informa tion Online using Patient Portal and [employer] Apps Indication:Non-smoker Start:20-Jul-2020 Instruction Type:Patient Education Patient Instructions Indication:Non-smoker Start:20-Jul-2020 Instruction Type:Provider Instructions for Treatment How to Access Health Informa tion Online using Patient Portal and [employer] Apps Indication:Non-smoker Start:29-Jun-2020 Instruction Type:Patient Education Patient Instructions Indication:Non-smoker Start:29-Jun-2020 Instruction Type:Provider Instructions for Treatment How to Access Health Informa tion Online using Patient Portal and [employer] Apps Indication:Non-smoker Start:07-Jun-2020 Instruction Type:Patient Education Patient Instructions Indication:Non-smoker Start:07-Jun-2020 Instruction Type:Provider Instructions for Treatment How to Access Health Informa tion Online using Patient Portal and [employer] Apps Indication:Non-smoker Start:24-May-2020 Instruction Type:Patient Education Patient Instructions Indication:Non-smoker Start:24-May-2020 Instruction Type:Provider Instructions for Treatment Patient Instructions Indication:Non-smoker Start:08-Mar-2020 Instruction Type:Provider Instructions for Treatment How to Access Health Informa tion Online using Patient Portal and [employer] Apps Indication:Non-smoker Start:08-Mar-2020 Instruction Type:Patient Education obesity [...] tion Online using Patient Portal and [employer] Apps Indication:Non-smoker Start:23-May-2022 Instruction Type:Patient Education Patient Instructions Indication:Encounter for screening mammogram for malignant neoplasm of breast Start:17-May-2022 Instruction Type:Provider Instructions for Treatment How to Access Health Informa tion Online using Patient Portal and [employer] Apps Indication:Encounter for screening mammogram for malignant neoplasm of breast Start:17-May-2022 Instruction Type:Patient Education Patient Instructions Indication:BMI 33.0-33.9,adult Start:11-Feb-2022 Instruction Type:Provider Instructions for Treatment How to Access Health Informa tion Online using Patient Portal and [employer] Apps Indication:BMI 33.0-33.9,adult Start:11-Feb-2022 Instruction Type:Patient Education Patient Instructions Indication:BMI 32.0-32.9,adult Start:07-Nov-2021 Instruction Type:Provider Instructions for Treatment How to Access Health Informa tion Online using Patient Portal and [employer] Apps Indication:BMI 32.0-32.9,adult Start:07-Nov-2021 Instruction Type:Patient Education Patient Instructions Indication:Non-smoker Start:16-Aug-2021 Instruction Type:Provider Instructions for Treatment How to Access Health Informa tion Online using Patient Portal and [employer] Apps Indication:Non-smoker Start:16-Aug-2021 Instruction Type:Patient Education Patient Instructions Indication:BMI 32.0-32.9,adult Start:11-Jun-2021 Instruction Type:Provider Instructions for Treatment How to Access Health Informa tion Online using Patient Portal and [employer] Apps Indication:BMI 32.0-32.9,adult Start:11-Jun-2021 Instruction Type:Patient Education Patient Instructions Indication:Non-smoker Start:16-May-2021 Instruction Type:Provider Instructions for Treatment How to Access Health Informa tion Online using Patient Portal and [employer] Apps Indication:Non-smoker Start:16-May-2021 Instruction Type:Patient Education Patient Instructions Indication:BMI 31.0-31.9,adult Start:29-Jan-2021 Instruction Type:Provider Instructions for Treatment How to Access Health Informa tion Online using Patient Portal and [employer] Apps Indication:BMI 31.0-31.9,adult Start:29-Jan-2021 Instruction Type:Patient Education Patient Instructions Indication:Non-smoker Start:11-Dec-2020 Instruction Type:Provider Instructions for Treatment How to Access Health Informa tion Online using Patient Portal and [employer] Apps Indication:Non-smoker Start:11-Dec-2020 Instruction Type:Patient Education How to Access Health Informa tion Online using Patient Portal and [employer] Apps Indication:Non-smoker Start:31-Aug-2020 Instruction Type:Patient Education Patient Instructions Indication:Non-smoker Start:31-Aug-2020 Instruction Type:Provider Instructions for Treatment Patient Instructions Indication:Non-smoker Start:10-Aug-2020 Instruction Type:Provider Instructions for Treatment How to Access Health Informa tion Online using Patient Portal and [employer] Apps Indication:Non-smoker Start:10-Aug-2020 Instruction Type:Patient Education How to Access Health Informa tion Online using Patient Portal and [employer] Apps Indication:Non-smoker Start:20-Jul-2020 Instruction Type:Patient Education Patient Instructions Indication:Non-smoker Start:20-Jul-2020 Instruction Type:Provider Instructions for Treatment How to Access Health Informa tion Online using Patient Portal and [employer] Apps Indication:Non-smoker Start:29-Jun-2020 Instruction Type:Patient Education Patient Instructions Indication:Non-smoker Start:29-Jun-2020 Instruction Type:Provider Instructions for Treatment How to Access Health Informa tion Online using Patient Portal and [employer] Apps Indication:Non-smoker Start:07-Jun-2020 Instruction Type:Patient Education Patient Instructions Indication:Non-smoker Start:07-Jun-2020 Instruction Type:Provider Instructions for Treatment How to Access Health Informa tion Online using Patient Portal and [employer] Apps Indication:Non-smoker Start:24-May-2020 Instruction Type:Patient Education Patient Instructions Indication:Non-smoker Start:24-May-2020 Instruction Type:Provider Instructions for Treatment Patient Instructions Indication:Non-smoker Start:08-Mar-2020 Instruction Type:Provider Instructions for Treatment How to Access Health Informa tion Online using Patient Portal and [employer] Apps Indication:Non-smoker Start:08-Mar-2020 Instruction Type:Patient Education obesity [...] tion Online using Patient Portal and [employer] Apps Indication:Non-smoker Start:23-May-2022 Instruction Type:Patient Education Patient Instructions Indication:Encounter for screening mammogram for malignant neoplasm of breast Start:17-May-2022 Instruction Type:Provider Instructions for Treatment How to Access Health Informa tion Online using Patient Portal and [employer] Apps Indication:Encounter for screening mammogram for malignant neoplasm of breast Start:17-May-2022 Instruction Type:Patient Education Patient Instructions Indication:BMI 33.0-33.9,adult Start:11-Feb-2022 Instruction Type:Provider Instructions for Treatment How to Access Health Informa tion Online using Patient Portal and [employer] Apps Indication:BMI 33.0-33.9,adult Start:11-Feb-2022 Instruction Type:Patient Education Patient Instructions Indication:BMI 32.0-32.9,adult Start:07-Nov-2021 Instruction Type:Provider Instructions for Treatment How to Access Health Informa tion Online using Patient Portal and [employer] Apps Indication:BMI 32.0-32.9,adult Start:07-Nov-2021 Instruction Type:Patient Education Patient Instructions Indication:Non-smoker Start:16-Aug-2021 Instruction Type:Provider Instructions for Treatment How to Access Health Informa tion Online using Patient Portal and [employer] Apps Indication:Non-smoker Start:16-Aug-2021 Instruction Type:Patient Education Patient Instructions Indication:BMI 32.0-32.9,adult Start:11-Jun-2021 Instruction Type:Provider Instructions for Treatment How to Access Health Informa tion Online using Patient Portal and [employer] Apps Indication:BMI 32.0-32.9,adult Start:11-Jun-2021 Instruction Type:Patient Education Patient Instructions Indication:Non-smoker Start:16-May-2021 Instruction Type:Provider Instructions for Treatment How to Access Health Informa tion Online using Patient Portal and [employer] Apps Indication:Non-smoker Start:16-May-2021 Instruction Type:Patient Education Patient Instructions Indication:BMI 31.0-31.9,adult Start:29-Jan-2021 Instruction Type:Provider Instructions for Treatment How to Access Health Informa tion Online using Patient Portal and [employer] Apps Indication:BMI 31.0-31.9,adult Start:29-Jan-2021 Instruction Type:Patient Education Patient Instructions Indication:Non-smoker Start:11-Dec-2020 Instruction Type:Provider Instructions for Treatment How to Access Health Informa tion Online using Patient Portal and [employer] Apps Indication:Non-smoker Start:11-Dec-2020 Instruction Type:Patient Education How to Access Health Informa tion Online using Patient Portal and [employer] Apps Indication:Non-smoker Start:31-Aug-2020 Instruction Type:Patient Education Patient Instructions Indication:Non-smoker Start:31-Aug-2020 Instruction Type:Provider Instructions for Treatment Patient Instructions Indication:Non-smoker Start:10-Aug-2020 Instruction Type:Provider Instructions for Treatment How to Access Health Informa tion Online using Patient Portal and [employer] Apps Indication:Non-smoker Start:10-Aug-2020 Instruction Type:Patient Education How to Access Health Informa tion Online using Patient Portal and [employer] Apps Indication:Non-smoker Start:20-Jul-2020 Instruction Type:Patient Education Patient Instructions Indication:Non-smoker Start:20-Jul-2020 Instruction Type:Provider Instructions for Treatment How to Access Health Informa tion Online using Patient Portal and [employer] Apps Indication:Non-smoker Start:29-Jun-2020 Instruction Type:Patient Education Patient Instructions Indication:Non-smoker Start:29-Jun-2020 Instruction Type:Provider Instructions for Treatment How to Access Health Informa tion Online using Patient Portal and [employer] Apps Indication:Non-smoker Start:07-Jun-2020 Instruction Type:Patient Education Patient Instructions Indication:Non-smoker Start:07-Jun-2020 Instruction Type:Provider Instructions for Treatment How to Access Health Informa tion Online using Patient Portal and [employer] Apps Indication:Non-smoker Start:24-May-2020 Instruction Type:Patient Education Patient Instructions Indication:Non-smoker Start:24-May-2020 Instruction Type:Provider Instructions for Treatment Patient Instructions Indication:Non-smoker Start:08-Mar-2020 Instruction Type:Provider Instructions for Treatment How to Access Health Informa tion Online using Patient Portal and [employer] Apps Indication:Non-smoker Start:08-Mar-2020 Instruction Type:Patient Education obesity [...] Informa tion Online using Patient Portal and [employer] Apps Indication:Non-smoker Start:23-May-2022 Instruction Type:Patient Education Patient Instructions Indication:Encounter for screening mammogram for malignant neoplasm of breast Start:17-May-2022 Instruction Type:Provider Instructions for Treatment How to Access Health Informa tion Online using Patient Portal and [employer] Indication:Encounter for screening mammogram for malignant neoplasm of breast Start:17-May-2022 Instruction Type:Patient Education Patient Instructions Indication:BMI 33.0-33.9,adult Start:11-Feb-2022 Instruction Type:Provider Instructions for Treatment How to Access Health Informa tion Online using Patient Portal and [employer] Indication:BMI 33.0-33.9,adult Start:11-Feb-2022 Instruction Type:Patient Education Patient Instructions Indication:BMI 32.0-32.9,adult Start:07-Nov-2021 Instruction Type:Provider Instructions for Treatment How to Access Health Informa tion Online using Patient Portal and [employer] Apps Indication:BMI 32.0-32.9,adult Start:07-Nov-2021 Instruction Type:Patient Education Patient Instructions Indication:Non-smoker Start:16-Aug-2021 Instruction Type:Provider Instructions for Treatment How to Access Health Informa tion Online using Patient Portal and [employer] Apps Indication:Non-smoker Start:16-Aug-2021 Instruction Type:Patient Education Patient Instructions Indication:BMI 32.0-32.9,adult Start:11-Jun-2021 Instruction Type:Provider Instructions for Treatment How to Access Health Informa tion Online using Patient Portal and [employer] Apps Indication:BMI 32.0-32.9,adult Start:11-Jun-2021 Instruction Type:Patient Education Patient Instructions Indication:Non-smoker Start:16-May-2021 Instruction Type:Provider Instructions for Treatment How to Access Health Informa tion Online using Patient Portal and [employer] Apps Indication:Non-smoker Start:16-May-2021 Instruction Type:Patient Education Patient Instructions Indication:BMI 31.0-31.9,adult Start:29-Jan-2021 Instruction Type:Provider Instructions for Treatment How to Access Health Informa tion Online using Patient Portal and [employer] Apps Indication:BMI 31.0-31.9,adult Start:29-Jan-2021 Instruction Type:Patient Education Patient Instructions Indication:Non-smoker Start:11-Dec-2020 Instruction Type:Provider Instructions for Treatment How to Access Health Informa tion Online using Patient Portal and [employer] Apps Indication:Non-smoker Start:11-Dec-2020 Instruction Type:Patient Education How to Access Health Informa tion Online using Patient Portal and [employer] Apps Indication:Non-smoker Start:31-Aug-2020 Instruction Type:Patient Education Patient Instructions Indication:Non-smoker Start:31-Aug-2020 Instruction Type:Provider Instructions for Treatment Patient Instructions Indication:Non-smoker Start:10-Aug-2020 Instruction Type:Provider Instructions for Treatment How to Access Health Informa tion Online using Patient Portal and [employer] Apps Indication:Non-smoker Start:10-Aug-2020 Instruction Type:Patient Education How to Access Health Informa tion Online using Patient Portal and [employer] Apps Indication:Non-smoker Start:20-Jul-2020 Instruction Type:Patient Education Patient Instructions Indication:Non-smoker Start:20-Jul-2020 Instruction Type:Provider Instructions for Treatment How to Access Health Informa tion Online using Patient Portal and [employer] Apps Indication:Non-smoker Start:29-Jun-2020 Instruction Type:Patient Education Patient Instructions Indication:Non-smoker Start:29-Jun-2020 Instruction Type:Provider Instructions for Treatment How to Access Health Informa tion Online using Patient Portal and [employer] Apps Indication:Non-smoker Start:07-Jun-2020 Instruction Type:Patient Education Patient Instructions Indication:Non-smoker Start:07-Jun-2020 Instruction Type:Provider Instructions for Treatment How to Access Health Informa tion Online using Patient Portal and [employer] Apps Indication:Non-smoker Start:24-May-2020 Instruction Type:Patient Education Patient Instructions Indication:Non-smoker Start:24-May-2020 Instruction Type:Provider Instructions for Treatment Patient Instructions Indication:Non-smoker Start:08-Mar-2020 Instruction Type:Provider Instructions for Treatment How to Access Health Informa tion Online using Patient Portal and [employer] Apps Indication:Non-smoker Start:08-Mar-2020 Instruction Type:Patient Education obesity [...] tion Online using Patient Portal and [employer] Apps Indication:Non-smoker Start:12-Aug-2022 Instruction Type:Patient Education Patient Instructions Indication:Non-smoker Start:23-May-2022 Instruction Type:Provider Instructions for Treatment How to Access Health Informa tion Online using Patient Portal and [employer] Apps Indication:Non-smoker Start:23-May-2022 Instruction Type:Patient Education Patient Instructions Indication:Encounter for screening mammogram for malignant neoplasm of breast Start:17-May-2022 Instruction Type:Provider Instructions for Treatment How to Access Health Informa tion Online using Patient Portal and [employer] Apps Indication:Encounter for screening mammogram for malignant neoplasm of breast Start:17-May-2022 Instruction Type:Patient Education Patient Instructions Indication:BMI 33.0-33.9,adult Start:11-Feb-2022 Instruction Type:Provider Instructions for Treatment How to Access Health Informa tion Online using Patient Portal and [employer] Apps Indication:BMI 33.0-33.9,adult Start:11-Feb-2022 Instruction Type:Patient Education Patient Instructions Indication:BMI 32.0-32.9,adult Start:07-Nov-2021 Instruction Type:Provider Instructions for Treatment How to Access Health Informa tion Online using Patient Portal and [employer] Apps Indication:BMI 32.0-32.9,adult Start:07-Nov-2021 Instruction Type:Patient Education Patient Instructions Indication:Non-smoker Start:16-Aug-2021 Instruction Type:Provider Instructions for Treatment How to Access Health Informa tion Online using Patient Portal and [employer] Apps Indication:Non-smoker Start:16-Aug-2021 Instruction Type:Patient Education Patient Instructions Indication:BMI 32.0-32.9,adult Start:11-Jun-2021 Instruction Type:Provider Instructions for Treatment How to Access Health Informa tion Online using Patient Portal and [employer] Apps Indication:BMI 32.0-32.9,adult Start:11-Jun-2021 Instruction Type:Patient Education Patient Instructions Indication:Non-smoker Start:16-May-2021 Instruction Type:Provider Instructions for Treatment How to Access Health Informa tion Online using Patient Portal and [employer] Apps Indication:Non-smoker Start:16-May-2021 Instruction Type:Patient Education Patient Instructions Indication:BMI 31.0-31.9,adult Start:29-Jan-2021 Instruction Type:Provider Instructions for Treatment How to Access Health Informa tion Online using Patient Portal and [employer] Apps Indication:BMI 31.0-31.9,adult Start:29-Jan-2021 Instruction Type:Patient Education Patient Instructions Indication:Non-smoker Start:11-Dec-2020 Instruction Type:Provider Instructions for Treatment How to Access Health Informa tion Online using Patient Portal and [employer] Apps Indication:Non-smoker Start:11-Dec-2020 Instruction Type:Patient Education How to Access Health Informa tion Online using Patient Portal and [employer] Apps Indication:Non-smoker Start:31-Aug-2020 Instruction Type:Patient Education Patient Instructions Indication:Non-smoker Start:31-Aug-2020 Instruction Type:Provider Instructions for Treatment Patient Instructions Indication:Non-smoker Start:10-Aug-2020 Instruction Type:Provider Instructions for Treatment How to Access Health Informa tion Online using Patient Portal and [employer] Apps Indication:Non-smoker Start:10-Aug-2020 Instruction Type:Patient Education How to Access Health Informa tion Online using Patient Portal and [employer] Apps Indication:Non-smoker Start:20-Jul-2020 Instruction Type:Patient Education Patient Instructions Indication:Non-smoker Start:20-Jul-2020 Instruction Type:Provider Instructions for Treatment How to Access Health Informa tion Online using Patient Portal and [employer] Apps Indication:Non-smoker Start:29-Jun-2020 Instruction Type:Patient Education Patient Instructions Indication:Non-smoker Start:29-Jun-2020 Instruction Type:Provider Instructions for Treatment How to Access Health Informa tion Online using Patient Portal and [employer] Apps Indication:Non-smoker Start:07-Jun-2020 Instruction Type:Patient Education Patient Instructions Indication:Non-smoker Start:07-Jun-2020 Instruction Type:Provider Instructions for Treatment How to Access Health Informa tion Online using Patient Portal and [employer] Apps Indication:Non-smoker Start:24-May-2020 Instruction Type:Patient Education Patient Instructions Indication:Non-smoker Start:24-May-2020 Instruction Type:Provider Instructions for Treatment Patient Instructions Indication:Non-smoker Start:08-Mar-2020 Instruction Type:Provider Instructions for Treatment How to Access Health Informa tion Online using Patient Portal and [employer] Apps Indication:Non-smoker Start:08-Mar-2020 Instruction Type:Patient Education obesity [...] tion Online using Patient Portal and [employer] Apps Indication:Non-smoker Start:04-Dec-2022 Instruction Type:Patient Education Patient Instructions Indication:Non-smoker Start:04-Dec-2022 Instruction Type:Provider Instructions for Treatment Patient Instructions Indication:Non-smoker Start:12-Aug-2022 Instruction Type:Provider Instructions for Treatment How to Access Health Informa tion Online using Patient Portal and [employer] Apps Indication:Non-smoker Start:12-Aug-2022 Instruction Type:Patient Education Patient Instructions Indication:Non-smoker Start:23-May-2022 Instruction Type:Provider Instructions for Treatment How to Access Health Informa tion Online using Patient Portal and [employer] Apps Indication:Non-smoker Start:23-May-2022 Instruction Type:Patient Education Patient Instructions Indication:Encounter for screening mammogram for malignant neoplasm of breast Start:17-May-2022 Instruction Type:Provider Instructions for Treatment How to Access Health Informa tion Online using Patient Portal and [employer] Apps Indication:Encounter for screening mammogram for malignant neoplasm of breast Start:17-May-2022 Instruction Type:Patient Education Patient Instructions Indication:BMI 33.0-33.9,adult Start:11-Feb-2022 Instruction Type:Provider Instructions for Treatment How to Access Health Informa tion Online using Patient Portal and [employer] Apps Indication:BMI 33.0-33.9,adult Start:11-Feb-2022 Instruction Type:Patient Education Patient Instructions Indication:BMI 32.0-32.9,adult Start:07-Nov-2021 Instruction Type:Provider Instructions for Treatment How to Access Health Informa tion Online using Patient Portal and [employer] Apps Indication:BMI 32.0-32.9,adult Start:07-Nov-2021 Instruction Type:Patient Education Patient Instructions Indication:Non-smoker Start:16-Aug-2021 Instruction Type:Provider Instructions for Treatment How to Access Health Informa tion Online using Patient Portal and [employer] Apps Indication:Non-smoker Start:16-Aug-2021 Instruction Type:Patient Education Patient Instructions Indication:BMI 32.0-32.9,adult Start:11-Jun-2021 Instruction Type:Provider Instructions for Treatment How to Access Health Informa tion Online using Patient Portal and [employer] Apps Indication:BMI 32.0-32.9,adult Start:11-Jun-2021 Instruction Type:Patient Education Patient Instructions Indication:Non-smoker Start:16-May-2021 Instruction Type:Provider Instructions for Treatment How to Access Health Informa tion Online using Patient Portal and [employer] Apps Indication:Non-smoker Start:16-May-2021 Instruction Type:Patient Education Patient Instructions Indication:BMI 31.0-31.9,adult Start:29-Jan-2021 Instruction Type:Provider Instructions for Treatment How to Access Health Informa tion Online using Patient Portal and [employer] Apps Indication:BMI 31.0-31.9,adult Start:29-Jan-2021 Instruction Type:Patient Education Patient Instructions Indication:Non-smoker Start:11-Dec-2020 Instruction Type:Provider Instructions for Treatment How to Access Health Informa tion Online using Patient Portal and [employer] Apps Indication:Non-smoker Start:11-Dec-2020 Instruction Type:Patient Education How to Access Health Informa tion Online using Patient Portal and [employer] Apps Indication:Non-smoker Start:31-Aug-2020 Instruction Type:Patient Education Patient Instructions Indication:Non-smoker Start:31-Aug-2020 Instruction Type:Provider Instructions for Treatment Patient Instructions Indication:Non-smoker Start:10-Aug-2020 Instruction Type:Provider Instructions for Treatment How to Access Health Informa tion Online using Patient Portal and [employer] Apps Indication:Non-smoker Start:10-Aug-2020 Instruction Type:Patient Education How to Access Health Informa tion Online using Patient Portal and [employer] Apps Indication:Non-smoker Start:20-Jul-2020 Instruction Type:Patient Education Patient Instructions Indication:Non-smoker Start:20-Jul-2020 Instruction Type:Provider Instructions for Treatment How to Access Health Informa tion Online using Patient Portal and [employer] Apps Indication:Non-smoker Start:29-Jun-2020 Instruction Type:Patient Education Patient Instructions Indication:Non-smoker Start:29-Jun-2020 Instruction Type:Provider Instructions for Treatment How to Access Health Informa tion Online using Patient Portal and [employer] Apps Indication:Non-smoker Start:07-Jun-2020 Instruction Type:Patient Education Patient Instructions Indication:Non-smoker Start:07-Jun-2020 Instruction Type:Provider Instructions for Treatment How to Access Health Informa tion Online using Patient Portal and [employer] Apps Indication:Non-smoker Start:24-May-2020 Instruction Type:Patient Education Patient Instructions Indication:Non-smoker Start:24-May-2020 Instruction Type:Provider Instructions for Treatment Patient Instructions Indication:Non-smoker Start:08-Mar-2020 Instruction Type:Provider Instructions for Treatment How to Access Health Informa tion Online using Patient Portal and [employer] Apps Indication:Non-smoker Start:08-Mar-2020 Instruction Type:Patient Education obesity [...] [facility] Work Phone: Family History No Family History Records FoundUnknown Family Member Name Dates Details Alcohol Abuse [...] Status:Active Throat cancer Comments:Paternal Grandfathe r. Status:Active Relationship Condition Age at Onset Recorded Date/T marko mother Malignant neoplasm Unknown Alcohol abuse Unknown father Alcohol abuse Unknown Pancreatitis Unknown Diabetes mellitus Unknown sister Multiple sclerosis Unknown grandfather Cardiac disease Unknown Malignant neoplasm Unknown grandmother Hypertension Unknown Unknown Family Member Name Dates Details Alcohol [...] Informa tion Online using Patient Portal and [employer] Apps Indication:Non-smoker Start:08-Mar-2020 Instruction Type:Patient Education obesity [...] Informa tion Online using Patient Portal and [employer] Apps Indication:Non-smoker Start:08-Mar-2020 Instruction Type:Patient Education obesity [...] Informa tion Online using Patient Portal and [employer] Apps Indication:Non-smoker Start:08-Mar-2020 Instruction Type:Patient Education obesity [...] Informa tion Online using Patient Portal and [employer] Apps Indication:Non-smoker Start:08-Mar-2020 Instruction Type:Patient Education obesity [...] tion Online using Patient Portal and [employer] Apps Indication:Non-smoker Start:24-May-2020 Instruction Type:Patient Education Patient Instructions Indication:Non-smoker Start:24-May-2020 Instruction Type:Provider Instructions for Treatment Patient Instructions Indication:Non-smoker Start:08-Mar-2020 Instruction Type:Provider Instructions for Treatment How to Access Health Informa tion Online using Patient Portal and [employer] Apps Indication:Non-smoker Start:08-Mar-2020 Instruction Type:Patient Education obesity [...] tion Online using Patient Portal and [employer] Apps Indication:Non-smoker Start:24-May-2020 Instruction Type:Patient Education Patient Instructions Indication:Non-smoker Start:24-May-2020 Instruction Type:Provider Instructions for Treatment Patient Instructions Indication:Non-smoker Start:08-Mar-2020 Instruction Type:Provider Instructions for Treatment How to Access Health Informa tion Online using Patient Portal and [employer] Apps Indication:Non-smoker Start:08-Mar-2020 Instruction Type:Patient Education obesity [...] tion Online using Patient Portal and [employer] Apps Indication:Non-smoker Start:07-Jun-2020 Instruction Type:Patient Education Patient Instructions Indication:Non-smoker Start:07-Jun-2020 Instruction Type:Provider Instructions for Treatment How to Access Health Informa tion Online using Patient Portal and [employer] Apps Indication:Non-smoker Start:24-May-2020 Instruction Type:Patient Education Patient Instructions Indication:Non-smoker Start:24-May-2020 Instruction Type:Provider Instructions for Treatment Patient Instructions Indication:Non-smoker Start:08-Mar-2020 Instruction Type:Provider Instructions for Treatment How to Access Health Informa tion Online using Patient Portal and [employer] Apps Indication:Non-smoker Start:08-Mar-2020 Instruction Type:Patient Education obesity [...] tion Online using Patient Portal and [employer] Apps Indication:Non-smoker Start:29-Jun-2020 Instruction Type:Patient Education Patient Instructions Indication:Non-smoker Start:29-Jun-2020 Instruction Type:Provider Instructions for Treatment How to Access Health Informa tion Online using Patient Portal and [employer] Apps Indication:Non-smoker Start:07-Jun-2020 Instruction Type:Patient Education Patient Instructions Indication:Non-smoker Start:07-Jun-2020 Instruction Type:Provider Instructions for Treatment How to Access Health Informa tion Online using Patient Portal and [employer] Apps Indication:Non-smoker Start:24-May-2020 Instruction Type:Patient Education Patient Instructions Indication:Non-smoker Start:24-May-2020 Instruction Type:Provider Instructions for Treatment Patient Instructions Indication:Non-smoker Start:08-Mar-2020 Instruction Type:Provider Instructions for Treatment How to Access Health Informa tion Online using Patient Portal and [employer] Apps Indication:Non-smoker Start:08-Mar-2020 Instruction Type:Patient Education obesity [...] Informa tion Online using Patient Portal and [employer] Apps Indication:Non-smoker Start:29-Jun-2020 Instruction Type:Patient Education Patient Instructions Indication:Non-smoker Start:29-Jun-2020 Instruction Type:Provider Instructions for Treatment How to Access Health Informa tion Online using Patient Portal and [employer] Apps Indication:Non-smoker Start:07-Jun-2020 Instruction Type:Patient Education Patient Instructions Indication:Non-smoker Start:07-Jun-2020 Instruction Type:Provider Instructions for Treatment How to Access Health Informa tion Online using Patient Portal and [employer] Apps Indication:Non-smoker Start:24-May-2020 Instruction Type:Patient Education Patient Instructions Indication:Non-smoker Start:24-May-2020 Instruction Type:Provider Instructions for Treatment Patient Instructions Indication:Non-smoker Start:08-Mar-2020 Instruction Type:Provider Instructions for Treatment How to Access Health Informa tion Online using Patient Portal and [employer] Apps Indication:Non-smoker Start:08-Mar-2020 Instruction Type:Patient Education obesity [...] Informa tion Online using Patient Portal and [employer] Apps Indication:Non-smoker Start:29-Jun-2020 Instruction Type:Patient Education Patient Instructions Indication:Non-smoker Start:29-Jun-2020 Instruction Type:Provider Instructions for Treatment How to Access Health Informa tion Online using Patient Portal and [employer] Apps Indication:Non-smoker Start:07-Jun-2020 Instruction Type:Patient Education Patient Instructions Indication:Non-smoker Start:07-Jun-2020 Instruction Type:Provider Instructions for Treatment How to Access Health Informa tion Online using Patient Portal and [employer] Apps Indication:Non-smoker Start:24-May-2020 Instruction Type:Patient Education Patient Instructions Indication:Non-smoker Start:24-May-2020 Instruction Type:Provider Instructions for Treatment Patient Instructions Indication:Non-smoker Start:08-Mar-2020 Instruction Type:Provider Instructions for Treatment How to Access Health Informa tion Online using Patient Portal and [employer] Apps Indication:Non-smoker Start:08-Mar-2020 Instruction Type:Patient Education obesity [...] Instruction Type:Provider Instructions for Treatment Advance Directives No Advanced Directives Records Found Name Dates Details Immunization Registry [place] - Effective on 02/23/2018. Expiration date unspecified Effective:23-Feb-2018 Name Dates Details Immunization Registry [place] - Effective on 02/23/2018. Expiration date unspecified Effective:23-Feb-2018 Name Dates Details Immunization Registry [place] - Effective on 02/23/2018. Expiration date unspecified Effective:23-Feb-2018 Name Dates Details Immunization Registry [place] - Effective on 02/23/2018. Expiration date unspecified Effective:23-Feb-2018 Name Dates Details Immunization Registry [place] - Effective on 02/23/2018. Expiration date unspecified Effective:23-Feb-2018 Name Dates Details Immunization Registry [place] - Effective on 02/23/2018. Expiration date unspecified Effective:23-Feb-2018 Name Dates Details Immunization Registry [place] - Effective on 02/23/2018. Expiration date unspecified Effective:23-Feb-2018 Name Dates Details Immunization Registry [place] - Effective on 02/23/2018. Expiration date unspecified Effective:23-Feb-2018 Name Dates Details Immunization Registry [place] - Effective on 02/23/2018. Expiration date unspecified Effective:23-Feb-2018 Name Dates Details Immunization Registry [place] - Effective on 02/23/2018. Expiration date unspecified Effective:23-Feb-2018 Name Dates Details Immunization Registry [place] - Effective on 02/23/2018. Expiration date unspecified Effective:23-Feb-2018 Name Dates Details Immunization Registry [place] - Effective on 02/23/2018. Expiration date unspecified Effective:23-Feb-2018 Name Dates Details Immunization Registry [place] - Effective on 02/23/2018. Expiration date unspecified Effective:23-Feb-2018 Name Dates Details Immunization Registry [place] - Effective on 02/23/2018. Expiration date unspecified Effective:23-Feb-2018 Name Dates Details Immunization Registry [place] - Effective on 02/23/2018. Expiration date unspecified Effective:23-Feb-2018 Name Dates Details Immunization Registry [place] - Effective on 02/23/2018. Expiration date unspecified Effective:23-Feb-2018 Name Dates Details Living Will - Effective on . Expiration date unspecified. Scanned Document is available upon request. Effective:26-Apr-2020 Immunization Registry [place] - Effective on 02/23/2018. Expiration date unspecified Effective:23-Feb-2018 Name Dates Details Living Will - Effective on . Expiration date unspecified. Scanned Document is available upon request. Effective:26-Apr-2020 Immunization Registry [place] - Effective on 02/23/2018. Expiration date unspecified Effective:23-Feb-2018 Name Dates Details Living Will - Effective on . Expiration date unspecified. Scanned Document is available upon request. Effective:26-Apr-2020 Immunization Registry [place] - Effective on 02/23/2018. Expiration date unspecified Effective:23-Feb-2018 Name Dates Details Living Will - Effective on . Expiration date unspecified. Scanned Document is available upon request. Effective:26-Apr-2020 Immunization Registry [place] - Effective on 02/23/2018. Expiration date unspecified Effective:23-Feb-2018 Name Dates Details Immunization Registry [place] - Effective on 02/23/2018. Expiration date unspecified Effective:23-Feb-2018 Name Dates Details Living Will - Effective on . Expiration date unspecified. Scanned Document is available upon request. Effective:26-Apr-2020 Immunization Registry [place] - Effective on 02/23/2018. Expiration date unspecified Effective:23-Feb-2018 Name Dates Details Living Will - Effective on . Expiration date unspecified. Scanned Document is available upon request. Effective:26-Apr-2020 Immunization Registry [place] - Effective on 02/23/2018. Expiration date unspecified Effective:23-Feb-2018 Name Dates Details Living Will - Effective on . Expiration date unspecified. Scanned Document is available upon request. Effective:26-Apr-2020 Immunization Registry [place] - Effective on 02/23/2018. Expiration date unspecified Effective:23-Feb-2018 Name Dates Details Living Will - Effective on . Expiration date unspecified. Scanned Document is available upon request. Effective:26-Apr-2020 Immunization Registry [place] - Effective on 02/23/2018. Expiration date unspecified Effective:23-Feb-2018 Name Dates Details Living Will - Effective on . Expiration date unspecified. Scanned Document is available upon request. Effective:26-Apr-2020 Immunization Registry [place] - Effective on 02/23/2018. Expiration date unspecified Effective:23-Feb-2018 Name Dates Details Living Will - Effective on . Expiration date unspecified. Scanned Document is available upon request. Effective:26-Apr-2020 Immunization Registry [place] - Effective on 02/23/2018. Expiration date unspecified Effective:23-Feb-2018 Name Dates Details Living Will - Effective on . Expiration date unspecified. Scanned Document is available upon request. Effective:26-Apr-2020 Immunization Registry [place] - Effective on 02/23/2018. Expiration date unspecified Effective:23-Feb-2018 Name Dates Details Living Will - Effective on . Expiration date unspecified. Scanned Document is available upon request. Effective:26-Apr-2020 Immunization Registry [place] - Effective on 02/23/2018. Expiration date unspecified Effective:23-Feb-2018 Name Dates Details Living Will - Effective on . Expiration date unspecified. Scanned Document is available upon request. Effective:26-Apr-2020 Immunization Registry [place] - Effective on 02/23/2018. Expiration date unspecified Effective:23-Feb-2018 Name Dates Details Living Will - Effective on . Expiration date unspecified. Scanned Document is available upon request. Effective:26-Apr-2020 Immunization Registry [place] - Effective on 02/23/2018. Expiration date unspecified Effective:23-Feb-2018 Name Dates Details Living Will - Effective on . Expiration date unspecified. Scanned Document is available upon request. Effective:26-Apr-2020 Immunization Registry [place] - Effective on 02/23/2018. Expiration date unspecified Effective:23-Feb-2018 Name Dates Details Living Will - Effective on . Expiration date unspecified. Scanned Document is available upon request. Effective:26-Apr-2020 Immunization Registry [place] - Effective on 02/23/2018. Expiration date unspecified Effective:23-Feb-2018 Name Dates Details Living Will - Effective on . Expiration date unspecified. Scanned Document is available upon request. Effective:26-Apr-2020 Immunization Registry [place] - Effective on 02/23/2018. Expiration date unspecified Effective:23-Feb-2018 Name Dates Details Living Will - Effective on . Expiration date unspecified. Scanned Document is available upon request. Effective:26-Apr-2020 Immunization Registry [place] - Effective on 02/23/2018. Expiration date unspecified Effective:23-Feb-2018 Name Dates Details Living Will - Effective on . Expiration date unspecified. Scanned Document is available upon request. Effective:26-Apr-2020 Immunization Registry [place] - Effective on 02/23/2018. Expiration date unspecified Effective:23-Feb-2018 Name Dates Details Living Will - Effective on . Expiration date unspecified. Scanned Document is available upon request. Effective:26-Apr-2020 Immunization Registry [place] - Effective on 02/23/2018. Expiration date unspecified Effective:23-Feb-2018 Name Dates Details Living Will - Effective on . Expiration date unspecified. Scanned Document is available upon request. Effective:26-Apr-2020 Immunization Registry [place] - Effective on 02/23/2018. Expiration date unspecified Effective:23-Feb-2018 Name Dates Details Living Will - Effective on . Expiration date unspecified. Scanned Document is available upon request. Effective:26-Apr-2020 Immunization Registry [place] - Effective on 02/23/2018. Expiration date unspecified Effective:23-Feb-2018 Name Dates Details Living Will - Effective on . Expiration date unspecified. Scanned Document is available upon request. Effective:26-Apr-2020 Immunization Registry [place] - Effective on 02/23/2018. Expiration date unspecified Effective:23-Feb-2018 Name Dates Details Living Will - Effective on . Expiration date unspecified. Scanned Document is available upon request. Effective:26-Apr-2020 Immunization Registry [place] - Effective on 02/23/2018. Expiration date unspecified Effective:23-Feb-2018 Name Dates Details Living Will - Effective on . Expiration date unspecified. Scanned Document is available upon request. Effective:26-Apr-2020 Immunization Registry [place] - Effective on 02/23/2018. Expiration date unspecified Effective:23-Feb-2018 Name Dates Details Living Will - Effective on . Expiration date unspecified. Scanned Document is available upon request. Effective:26-Apr-2020 Immunization Registry [place] - Effective on 02/23/2018. Expiration date unspecified Effective:23-Feb-2018 Name Dates Details Living Will - Effective on . Expiration date unspecified. Scanned Document is available upon request. Effective:26-Apr-2020 Immunization Registry [place] - Effective on 02/23/2018. Expiration date unspecified Effective:23-Feb-2018 Name Dates Details Living Will - Effective on . Expiration date unspecified. Scanned Document is available upon request. Effective:26-Apr-2020 Immunization Registry [place] - Effective on 02/23/2018. Expiration date unspecified Effective:23-Feb-2018 Summary Purpose Chief Complaint and Reason for Visit Chief Complaint XRAY SCREENING GAIT AND BALANCE RX HERE [place] Chief Complaint XRAY SCREENING [place] GAIT AND BALANCE RX HERE Chief Complaint Depression, unspecif ied Additional Source Comments Goals (unrecognized section and content) Goals may be documented in a n alternate sectionGoals may be documented in an alternate sectionGoals may be documented in an alternate sectionGoals may be documented in an alternate section INFORMATION SOURCE (unrecogn ized section and content) DATE CREATED AUTHOR 05/18/2022 [facility] DATE CREATED AUTHOR AUTHOR'S ORGANIZ ATION 11/16/2024 [facility] DATE CREATED AUTHOR AUTHOR'S ORGANIZ ATION 01/24/2025 [facility] Care Teams (unrecognized sec tion and content) Team Status: Active Member Role Status Dates Dr. Jailene Michaels , DO Family Provider Active Dr. Jailene Michaels , DO Primary Care Provider Active Team Status: Inactive Member Role Status Dates Dr. Jailene Michaels , DO Primary Care Provider Active Dr. Giovani López MD Attending Provider Active Team Status: Inactive Member Role Status Dates Dr. Jailene Michaels , DO Primary Care Provider, Attend ing Provider Active Team Status: Active Member Role Status Dates Dr. Jailene Michaels , DO Primary Care Provider Active Jailene KUHN, DO Attending Provider, Referring Provider Active Team Status: Inactive Member Role Status Dates Dr. Jailene Michaels , DO Primary Care Pr ovider, Attending Provider, Referring Provider Active Team Status: Inactive Member Role Status Dates Dr. Jailene Michaels , DO Primary Care Provider Active Jailene KUHN, DO Attending Provider, Referring Provider Active Team Status: Inactive Member Role Status Dates Dr. Jailene Michaels , DO Primary Care Provider Active Dr. Yair Garcia MD Attending Provider, Re ferring Provider Active FOR RECORDS PERTAINING TO PATIENTS WHO ARE [...] BE BASED ON THE PRIMARY CLINICAL RECORDS. [employer] provides no warranty or guarantee of the accuracy or completeness of information in this document.
[2025-03-20 19:41] VITALS: BP 135/79; PULSE 63; RESP 18; TEMP 36.7; O2SAT 94
== END 2025-03-20 19:42 | disposition home or self-care (01) ==
PROVIDERS: Emergency Provider Emergency Medicine; PCP Internal Medicine; Visit Provider Emergency Medicine
DX: S09.90XA Unspecified injury of head, initial encounter (principal); I10 Essential (primary) hypertension; K21.9 Gastro-esophageal reflux disease without esophagitis; W01.0XXA Fall on same level from slipping, tripping and stumbling without subsequent striking against object, initial encounter
CPT/HCPCS: 70450; 99282